=== PATIENT | female | born 2000 | race Caucasian/White ===

== ENCOUNTER 2019-07-28 13:07 | Inpatient (IN) | payer BC, SELFPAY ==
[2019-07-28] VITALS (16 sets, daily range): BP systolic 107–139; BP diastolic 51–96; PULSE 108–146; RESP 15–24; TEMP 37.2–37.4; O2SAT 98–100; BMI 39.6; BMI 39.7; BMI 39.9
[2019-07-28 14:16] LABS: Bedside Glucose 125 mg/dL (70-110)
[2019-07-28 14:25] LABS: Absolute Lymphocyte Count 2.49 X10^3/uL (0.83-4.51); Absolute Neutrophil Count 9.7 X10^3/uL (2.0-7.7); Basophil# 0.11 X10^3/uL; Basophil% 0.8 % (0-1); Eosinophil# 0.02 X10^3/uL; Eosinophils% 0.2 % (0-5); Hematocrit 43.4 % (37-47); Hemoglobin 14.2 g/dL (12.0-15.0); Lymphocyte # 2.49 X10^3/ul (4.0); Mean Corp Hgb Conc 32.7 g/dL (32-36); Mean Corpuscular Hgb 28.3 pg (27.0-32.0); Mean Corpuscular Volume 86.6 fL (81-99); Mean Platelet Vol. 9.1 fl (6.2-12.0); Monocyte# 0.71 X10^3/uL; Monocyte% 5.4 % (0-10); NRBC Flagged by Analyzer 0 % (0-5); Neutrophil # 9.71 X10^3/uL (2.7-7.7); Platelet Count 520 K/mm3 (150-450); RBC Distribution Width CV 12.3 % (11.6-14.6); RBC Distribution Width SD 38.5 fl (35.1-43.9); Red Blood Count 5.01 M/mm3 (4.2-5.4); White Blood Count 13.1 K/mm3 (4.4-11.0)
[2019-07-28 14:33] LABS: Anion Gap 14 (5-15); BUN 11 mg/dL (7-18); BUN/Creat Ratio 14.4 RATIO (10-20); Calcium,Total 9.7 mg/dL (8.5-10.1); Chloride 97 mmol/L (98-107); Creatinine, Serum 0.77 mg/dL (0.55-1.02); EST Glomerular Filtration Rate 102 mL/min (>60); Est Glom Filt Rate - Afr Amer 123 mL/min (>60); Estimated Creatinine Clearance 87.94 ml/min; Glucose 119 mg/dL (74-106); Lipase 37 U/L (73-393); Potassium 3.9 mmol/L (3.5-5.1); Sodium Level 132 mmol/L (136-145)
--- NOTE | 2019-07-28 14:33 | RAD_ITS ---
EXAM DESCRIPTION: PA and lateral CHEST CLINICAL HISTORY: 19 years Female, dyspnea COMPARISON: None FINDINGS: The thorax is intact. The heart and mediastinum appear to be within normal limits. The lungs appear to be well areated without evidence of pneumonic consolidation or pleural effusion. RAD/Chest PA and Lateral IMPRESSION: Normal PA and lateral chest. Electronically Signed: Andrew Isra, at 15:10 EDT Tel , Service support ,
[2019-07-28 14:35] LABS: Red Blood Cells-Urine 0 SEEN /hpf (0-5)
[2019-07-28] MEDS: Ondansetron 4 MG/2 ML Vial IV (14:37)
[2019-07-28] MEDS: 0.9% Normal Saline 1,000 ML 1000 ML IV (14:37)
[2019-07-28 14:39] LABS: Color, Urine Yellow (Yellow); Glucose, Dipstick 1000 mg/dl (Normal); Leukocyte Esterase-Dipstick 100 /ul (Negative); Nitrite-Dipstick Negative (Negative); Occult Blood-Urine Negative /ul (Negative); Protein-Dipstick 100 mg/dl (Negative); Urine Clarity Sl. Cloudy (Clear); Urine Urobilinogen 1 mg/dl (Normal)
[2019-07-28 14:40] LABS: Internal QC Validated? YES +Cl - CLEAR BKGD; Pregnancy, Urine Negative Negative
[2019-07-28 14:41] LABS: Urine Bilirubin Dipstick 1 mg/dL (Negative)
[2019-07-28 14:42] LABS: Ketone-Dipstick 150 mg/dl (Negative)
[2019-07-28 14:47] LABS: Bacteria 1+ /hpf (None Seen); Mucous, Urine 1+ /hpf (<or=2+); Squamous Epithelial Cells - UA 0-5 SEEN /hpf (5-10); White Blood Cells 10-25 SEEN /hpf (0-5)
--- NOTE | 2019-07-28 15:21 | ED.VIS.GEN ---
History of Present Illness Chief Complaint: Nausea/Vomiting Informant: Patient Onset: Yesterday Context: Gradual Onset Timing: Continuous Quality: nonbloody, nonbilious Current Severity: Severe Maximum Severity: Severe Worsened by: trying to eat/drink Relieved by: nothing Associated Symptoms: sob earlier. cold symptoms. Narrative: Patient states she is a type I and a type II diabetic, she states she is on insulin and pills, and has been in DKA before. She states she feels like other times when she has been in DKA, and checked her urine today and it was positive for ketones. However her sugar was in the 100s, and even went down to 65 so she drank some juice. She has been compliant with her medications. She has been around sick contacts at a healthcare facility recently. She initially stated she was having some epigastric abdominal pain but later states it was really just severe nausea and she does not have any other pains. Not right now. No urinary symptoms or polyuria/polydipsia. - Past Medical History (1) Diabetes mellitus Status: Chronic Past Medical History - Allergies and Home Meds Allergies/Adverse Reactions: Allergies No Known Allergies Allergy (Verified 07/28/19 13:08) Primary Care Physician: Petros Spicer MD [Primary Care Provider] - Lives: With Family Smoking Status: Never smoker Review of Systems General: Reports: Malaise. Denies: Chills, Fever, Sweats Eyes: Denies: Visual changes - bilaterally, Diplopia ENT: Reports: Left ear pain, Rhinorrhea - And congestion. Denies: Right ear pain, Sore throat Cardiovascular: Denies: Chest pain, Palpitations Respiratory: Reports: Dyspnea, Cough. Denies: Sputum, Dyspnea on exertion Gastrointestinal: Reports: Nausea, Vomiting. Denies: Abdominal pain, Diarrhea, Melena, Hematochezia Genitourinary: Denies: Dysuria, Hematuria, Frequency Musculoskeletal: Denies: Back pain, Swelling, Extremity Pain Skin: Denies: Rash, Wounds Neurological: Denies: Headache, Weakness, Numbness Endocrine: Denies: Polyuria, Polydipsia, Heat intolerance, Cold intolerance Physical Exam Vital Signs/Narrative: Vital Signs Temp Pulse Resp BP Pulse Ox 07/28/19 13:08 99.3 F H 146 H 18 139/96 H 98 Inital Vital Signs reviewed: Yes General: Well nourished, Well developed, No Acute Distress Head: Normocephalic, Atraumatic Eyes: Perrl, EOMI ENT: Moist mucous membranes, No rhinorrhea, TM's clear. Negative for: Sinus tenderness Neck: Supple, Nontender, No lymphadenopathy Cardiovascular: Regular rate, Regular rhythm, No murmurs, Tachycardia Respiratory: No distress, CTA bilaterally, Chest nontender Abdomen: Soft, Nontender, Nondistended, Normal bowel sounds Back: Nontender, Normal Inspection. Negative for: CVA tenderness Extremities: Nontender, No edema Skin: Normal color, No rash, No Trauma Neurological: Alert, Oriented x3, Cranial nerves II-XII grossly intact, Normal Strength, Normal Sensation Psychological: Normal affect, Normal Mood Diagnostic/Tx/Re-eval Impressions Chest X-Ray 07/28/19 14:33 IMPRESSION: Normal PA and lateral chest. Electronically Signed: Andrew Dhaliwal, at 15:10 EDT Tel , Service support , 07/28/19 14:13 Chest PA and Lateral [RAD] Stat Laboratory Results 07/28/19 07/28/19 07/28/19 13:53 13:53 13:53 WBC 13.1 H RBC 5.01 Hgb 14.2 Hct 43.4 MCV 86.6 MCH 28.3 MCHC 32.7 RDW Std Deviation 38.5 RDW Coeff of Jose Roberto 12.3 Plt Count 520 H MPV 9.1 Immature Gran % (Auto) 0.600 Neut % (Auto) 74.0 H Lymph % (Auto) 19.0 [place] % (Auto) 5.4 Eos % (Auto) 0.2 Baso % (Auto) 0.8 Absolute Neuts (auto) 9.7 H Absolute Lymphs (auto) 2.49 Nucleated RBC % 0 Sodium 132 L Potassium 3.9 Chloride 97 L Carbon Dioxide 21.0 Anion Gap 14 BUN 11 Creatinine 0.77 Estim Creat Clear Calc 87.94 Est GFR (MDRD) Af Amer 123 Est GFR (MDRD) Non-Af 102 BUN/Creatinine Ratio 14.4 Glucose 119 H Calcium 9.7 Lipase 37 L Urine Color Urine Clarity Urine pH Ur Specific [place] Urine Protein Urine Glucose (UA) Urine Ketones Urine Occult Blood Urine Nitrite Urine Bilirubin Urine Urobilinogen Ur Leukocyte Esterase Urine RBC Urine WBC Ur Squamous Epith Cells Urine Bacteria Urine Mucus Urine Test Acetone Level SMALL H POC Glucose 07/28/19 07/28/19 07/28/19 13:53 13:53 13:53 WBC RBC Hgb Hct MCV MCH MCHC RDW Std Deviation RDW Coeff of Jose Roberto Plt Count MPV Immature Gran % (Auto) Neut % (Auto) Lymph % (Auto) [place] % (Auto) Eos % (Auto) Baso % (Auto) Absolute Neuts (auto) Absolute Lymphs (auto) Nucleated RBC % Sodium Potassium Chloride Carbon Dioxide Anion Gap BUN Creatinine Estim Creat Clear Calc Est GFR (MDRD) Af Amer Est GFR (MDRD) Non-Af BUN/Creatinine Ratio Glucose Calcium Lipase Urine Color Yellow Urine Clarity Sl. Cloudy Urine pH 5.0 Ur Specific [place] 1.020 Urine Protein 100 H Urine Glucose (UA) 1000 H Urine Ketones 150 H Urine Occult Blood Negative Urine Nitrite Negative Urine Bilirubin 1 H Urine Urobilinogen 1 H Ur Leukocyte Esterase 100 H Urine RBC 0 SEEN Urine WBC 10-25 SEEN Ur Squamous Epith Cells 0-5 SEEN Urine Bacteria 1+ Urine Mucus 1+ Urine Test Negative Acetone Level POC Glucose 125 H - Medical Decision Making Patient's anion gap is within normal limits but her serum ketones returned small. Urine shows signs of infection, this was cultured and she was started on Rocephin. She was feeling much better after fluids and Zofran and is feeling hungry, but her venous blood gas came back with a pH of 7.33, all indicating very mild DKA. Her blood sugars in the 100s. She will be started on D5 half normal saline prior to starting insulin drip. Discussed with Dr. Hayden who agrees with ICU admission. - Critical Care Time Critical care time (excluding procedures): 30-74 minutes - 35 minutes including time spent discussing with patient and family and consultants and arranging admission. ED Disposition - Plan for ED Patient: Disposition: Acute Care Hospital [facility] Diagnosis: UTI (urinary tract infection), DKA (diabetic ketoacidoses) Referrals: Petros Spicer MD [Primary Care Provider] -
[2019-07-28] MEDS: Ceftriaxone 1 GM/50 ML BAG IV (15:48)
[2019-07-28 16:01] LABS: Blood Gas Specimen Type VEN; O2 Delivery Device Room Air; Time Given 1552; VBG BASE EXCESS -10 mmol/L (-1.0-3.5); VBG Bicarbonate 16 mmol/L (22-26); VBG Oxygen Content 17 mmol/L (23-33); VBG PO2 70 mmHg (25-40); VBG SO2 93 % (50-70); VBG pCO2 29.3 mmHg (41-51); VBG pH 7.34 (7.32-7.42)
--- NOTE | 2019-07-28 16:09 | HP.PCM_ITS ---
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 She denies any recent dysuria, frequency or hesitancy. Work-up in the ED included T 99.3, heart rate 146, BP 139/96, respiratory rate 18, 98% on room air, CBC with W BC 13.1, heme globin 14.2, platelet 520 with left shift, VBG with pH 7.34, PO2 70, O2 saturation 93% on room air, BMP with sodium 132, chloride 97, glucose 119, lipase 37, anion gap 14 however noted positive acetones, urine ketones present, urinalysis with specific gravity 1.020, protein 100, glucose 1000, ketones as noted 150, leukocyte esterase 100, negative nitrites with 10-25 WBCs with 1+ bacteria, unremarkable chest x-ray. In the ED patient ministered normal saline, Zofran, Rocephin, initiated on an insulin drip. Past Medical History Past Medical History (Chronic Problems): Chronic Problems Diabetes mellitus (Chronic) Allergies No Known Allergies Allergy (Verified 07/28/19 13:08) Home Medications: Ambulatory Orders Medication Instructions Recorded Insulin Glargine,Hum.rec.anlog 12 units SQ BREAKFAST 07/28/19 [Toujeo Max Solostar] Insulin Glargine,Hum.rec.anlog 60 unit SQ QHS 07/28/19 [Toujeo Max Solostar] Insulin Lispro [Humalog] units SQ TIDCM 07/28/19 Levothyroxine [Synthroid] 50 mcg PO DAILY 07/28/19 Lisinopril 30 mg PO DAILY 07/28/19 Surgical History: - - Tonsillectomy, inner leg cyst removal. 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 Smoking Status: Never smoker Tobacco Use: Non-smoker Alcohol: None Drugs: None - *Family History Maternal History Items: - - Patient with no market paternal family history including heart disease, diabetes or cancer. Patient does note that her mother's mother did have a history of cancer. Paternal History Items: Diabetes, High Cholesterol, Heart Disease, Hypertension Review of Systems Constitutional: Reports: Anorexia, Malaise, Weakness, Fatigue. Denies: Chills, Fever, Weight Change HEENT: Denies: Head Aches, Sinus Congestion, Sinus Drainage Cardiovascular: Denies: Chest Pain, Palpitations Respiratory: Denies: Cough, Shortness of breath at rest, Sputum production Gastrointestinal: Reports: Nausea, Vomiting. Denies: Abdominal Pain Genitourinary: Denies: Dysuria Musculoskeletal: Reports: Joint Pain. Denies: Joint Tenderness Skin: Denies: Rash, Wounds Neurological: Denies: Numbness, Tingling, Focal weakness Psychiatric: Denies: Anxiety, Depression, Homicidal Ideations, Suicidal Ideations Endocrine: Reports: Polydipsia, Polyuria Hematologic/ Lymphatic: Denies: Easy Bruising, Easy Bleeding VTE Information - Inpt Only VTE Present on Admission: No VTE Mechan Device Prophylaxis: SCD's VTE Pharm Prophylaxis ordered?: Yes Patient Problems: Active and Suspected Problems UTI (urinary tract infection) (Acute) DKA (diabetic ketoacidoses) (Acute) Subjective: Seated upright in ED bed, fatigued and ill-appearing, no acute distress currently, notes nausea improving. Objective: Physical Examination: General: awake, alert, oriented x 3 and cooperative, seated upright in the ED bed, fatigued and mildly ill appearing. Skin: normal color, turgor, no icterus, cyanosis. HEENT: AT/NC, EOMI, PERRLA, dry MM, no carotid bruits or JVD noted. Lungs: CTA bilaterally, moderate effort, moderate decrease BL bases, no rales, ronchi or wheezing. Heart: Tachycardic with regular rhythm; no gallop, rub audible. Abdomen: soft, obese, mild tenderness palpation bilateral upper quadrants primarily with palpation of the lateral musculature, no rebound or guarding, difficult to assess distention given habitus, mildly hypoactive bowel sounds, difficult to assess HSM secondary to habitus. Extremities: no cyanosis, clubbing, or edema. Neurological: patient awake, alert, oriented x 3; cognitive function intact; pupils equally reactive to light and accomodation; cranial nerves II-XII grossly normal, moving all 4 extremities, no focal deficits, strength moderately to severely global decrease secondary to acute presentation. Psychiatric: affect appears fatigued, no acute evidence of depressive or anxiety feelings. - Physical Exam Vital Signs Temp Pulse Resp BP Pulse Ox 99.3 F H 146 H 18 139/96 H 98 07/28/19 13:08 07/28/19 13:08 07/28/19 13:08 07/28/19 13:08 07/28/19 13:08 Oxygen Delivery Method Room Air Weight: 209 lb 14.081 oz Body Mass Index (BMI) 39.6 Laboratory Tests Past 24 Hrs 07/28/19 07/28/19 07/28/19 13:53 13:53 13:53 WBC 13.1 H RBC 5.01 Hgb 14.2 Hct 43.4 MCV 86.6 MCH 28.3 MCHC 32.7 RDW Std Deviation 38.5 RDW Coeff of Jose Roberto 12.3 Plt Count 520 H MPV 9.1 Immature Gran % (Auto) 0.600 Neut % (Auto) 74.0 H Lymph % (Auto) 19.0 [place] % (Auto) 5.4 Eos % (Auto) 0.2 Baso % (Auto) 0.8 Absolute Neuts (auto) 9.7 H Absolute Lymphs (auto) 2.49 Nucleated RBC % 0 Specimen Type VBG pH VBG pO2 VBG O2 Sat (Calc) VBG O2 Content VBG Base Excess POC Mix VBG pCO2 Pt Tmp O2 Delivery Device Blood Gas Notified Whom Blood Gas Notified Time Sodium 132 L Potassium 3.9 Chloride 97 L Carbon Dioxide 21.0 Anion Gap 14 BUN 11 Creatinine 0.77 Estim Creat Clear Calc 87.94 Est GFR (MDRD) Af Amer 123 Est GFR (MDRD) Non-Af 102 BUN/Creatinine Ratio 14.4 Glucose 119 H Calcium 9.7 Lipase 37 L Urine Color Urine Clarity Urine pH Ur Specific [place] Urine Protein Urine Glucose (UA) Urine Ketones Urine Occult Blood Urine Nitrite Urine Bilirubin Urine Urobilinogen Ur Leukocyte Esterase Urine RBC Urine WBC Ur Squamous Epith Cells Urine Bacteria Urine Mucus Urine Test Acetone Level SMALL H 07/28/19 07/28/19 07/28/19 13:53 13:53 15:54 WBC RBC Hgb Hct MCV MCH MCHC RDW Std Deviation RDW Coeff of Jose Roberto Plt Count MPV Immature Gran % (Auto) Neut % (Auto) Lymph % (Auto) [place] % (Auto) Eos % (Auto) Baso % (Auto) Absolute Neuts (auto) Absolute Lymphs (auto) Nucleated RBC % Specimen Type MICHAEL VBG pH 7.34 VBG pO2 70 H VBG O2 Sat (Calc) 93 H VBG O2 Content 17 L VBG Base Excess -10 L POC Mix VBG pCO2 Pt Tmp 29.3 L O2 Delivery Device Room Air Blood Gas Notified Whom ED Blood Gas Notified Time 1552 Sodium Potassium Chloride Carbon Dioxide Anion Gap BUN Creatinine Estim Creat Clear Calc Est GFR (MDRD) Af Amer Est GFR (MDRD) Non-Af BUN/Creatinine Ratio Glucose Calcium Lipase Urine Color Yellow Urine Clarity Sl. Cloudy Urine pH 5.0 Ur Specific [place] 1.020 Urine Protein 100 H Urine Glucose (UA) 1000 H Urine Ketones 150 H Urine Occult Blood Negative Urine Nitrite Negative Urine Bilirubin 1 H Urine Urobilinogen 1 H Ur Leukocyte Esterase 100 H Urine RBC 0 SEEN Urine WBC 10-25 SEEN Ur Squamous Epith Cells 0-5 SEEN Urine Bacteria 1+ Urine Mucus 1+ Urine Test Negative Acetone Level POC Glucose 07/28/19 13:53 POC Glucose 125 H Assessment/Plan All Active Problems UTI (urinary tract infection) (Acute) DKA (diabetic ketoacidoses) (Acute) The patient is a 19 y/o F w/ PMHx: Diabetes mellitus type I presumed, Hypothyroidism, Obesity who presents to the [facility] ED on 07/28/19 with history of progressively worsening nausea, emesis, malaise and fatigue with mild dyspnea, worse with exertion, worse with increased activity starting the evening prior with 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 (1) DKA w/ Diabetes mellitus type I Presumed: Will admit to the ICU, continue on insulin drip, check serial K+, glucose w/ IVF changes pending these levels, serial chemistry, obtain mag, phos daily w/ repletion as needed, transition to home SC regimen when gap closed w/ overlap on drip, nutrition consultation. Encouraged diet and insulin regimen compliance. HgbA1c pending. ICU physician consulted. (2) ? Acute Urinary Tract Infection: Not symptomatic but given acute presentation #1 admitted with DKA, UA upon ED evaluation mildly remarkable, pending UCx, as noted continue to aggressive continue IVFs, monitor I/Os, continue IV Rocephin w/ transition as able pending sensitivities and speciation or discontinuation if culture unremarkable. (3) Hypothyroidism: Continue home synthroid regimen. (4) Obesity: Weight loss and lifestyle changes encouraged, nutrition consulted. (5) GERD: Maintained on famotidine. (6) DVT prophylaxis: SCDs, Lovenox. Code Visit Inpatient E&M: 55978 Init Hosp L3
[2019-07-28] MEDS: Dext 5%-0.45% NS 1,000 ML 200 ML IV (16:48)
[2019-07-28 17:36] LABS: Bedside Glucose 289 mg/dL (70-110)
[2019-07-28] MEDS: 0.9% Normal Saline 1,000 ML 999 ML IV (17:55)
[2019-07-28 18:12] LABS: Osmolality, Serum 289 mOsm/KG (275-295)
[2019-07-28 18:14] LABS: Anion Gap 19 (5-15); BUN 9 mg/dL (7-18); Calcium,Total 8.6 mg/dL (8.5-10.1); Chloride 100 mmol/L (98-107); Creatinine, Serum 0.75 mg/dL (0.55-1.02); EST Glomerular Filtration Rate 104 mL/min (>60); Est Glom Filt Rate - Afr Amer 126 mL/min (>60); Estimated Creatinine Clearance 90.29 ml/min; Glucose 278 mg/dL (74-106); Potassium 3.2 mmol/L (3.5-5.1); Sodium Level 133 mmol/L (136-145)
[2019-07-28 18:15] LABS: Magnesium 1.5 mg/dL (1.6-2.6); Phosphorus 2.8 mg/dL (2.5-4.9)
[2019-07-28 18:36] LABS: Bedside Glucose 145 mg/dL (70-110)
[2019-07-28] MEDS: Dext 5%-0.45% NS 1,000 ML 150 ML IV (18:37)
[2019-07-28] MEDS: Potassium Chloride 10mEq/100mL 10 MEQ/100 ML IV.SOLN. 100 MEQ IV BOLUS ×4 (20:20→23:59)
[2019-07-28 20:41] LABS: Bedside Glucose 96 mg/dL (70-110)
[2019-07-28 20:41] LABS: Bedside Glucose 69 mg/dL (70-110)
[2019-07-28 21:30] LABS: Bedside Glucose 147 mg/dL (70-110)
[2019-07-28 21:48] LABS: Anion Gap 9 (5-15); BUN 7 mg/dL (7-18); BUN/Creat Ratio 10.4 RATIO (10-20); Calcium,Total 8.3 mg/dL (8.5-10.1); Chloride 102 mmol/L (98-107); Creatinine, Serum 0.67 mg/dL (0.55-1.02); EST Glomerular Filtration Rate 118 mL/min (>60); Est Glom Filt Rate - Afr Amer 143 mL/min (>60); Estimated Creatinine Clearance 101.07 ml/min; Glucose 142 mg/dL (74-106); Potassium 4.1 mmol/L (3.5-5.1); Sodium Level 133 mmol/L (136-145)
[2019-07-28 22:35] LABS: Bedside Glucose 267 mg/dL (70-110)
[2019-07-28] MEDS: Famotidine 20 MG Tablet PO (22:37)
[2019-07-28 23:36] LABS: Bedside Glucose 347 mg/dL (70-110)
[2019-07-29] VITALS (28 sets, daily range): BP systolic 108–148; BP diastolic 46–98; PULSE 98–118; RESP 14–20; TEMP 36.6–37.3; O2SAT 95–100
[2019-07-29 00:41] LABS: Bedside Glucose 214 mg/dL (70-110)
[2019-07-29 00:50] LABS: Bedside Glucose 86 mg/dL (70-110)
[2019-07-29] MEDS: Dext 5%-0.45% NS 1,000 ML 150 ML IV ×2 (01:17→10:08)
[2019-07-29 01:31] LABS: Bedside Glucose 156 mg/dL (70-110)
[2019-07-29 01:50] LABS: Anion Gap 11 (5-15); BUN 5 mg/dL (7-18); BUN/Creat Ratio 6.5 RATIO (10-20); Calcium,Total 7.9 mg/dL (8.5-10.1); Chloride 106 mmol/L (98-107); Creatinine, Serum 0.76 mg/dL (0.55-1.02); EST Glomerular Filtration Rate 102 mL/min (>60); Est Glom Filt Rate - Afr Amer 123 mL/min (>60); Glucose 154 mg/dL (74-106); Sodium Level 135 mmol/L (136-145)
[2019-07-29 03:00] LABS: Bedside Glucose 135 mg/dL (70-110)
[2019-07-29 04:30] LABS: Absolute Neutrophil Count 4.6 X10^3/uL (2.0-7.7); Basophil# 0.07 X10^3/uL; Eosinophil# 0.07 X10^3/uL; Hematocrit 35.8 % (37-47); Hemoglobin 11.6 g/dL (12.0-15.0); Lymphocyte % 27.7 % (19-41); Mean Corp Hgb Conc 32.4 g/dL (32-36); Mean Corpuscular Hgb 28.6 pg (27.0-32.0); Mean Corpuscular Volume 88.2 fL (81-99); Mean Platelet Vol. 8.7 fl (6.2-12.0); Monocyte# 0.44 X10^3/uL; Monocyte% 6.1 % (0-10); NRBC Flagged by Analyzer 0 % (0-5); Neutrophil % 63.5 % (47-70); Platelet Count 321 K/mm3 (150-450); RBC Distribution Width CV 12.3 % (11.6-14.6); Red Blood Count 4.06 M/mm3 (4.2-5.4); White Blood Count 7.2 K/mm3 (4.4-11.0)
[2019-07-29 04:31] LABS: Bedside Glucose 161 mg/dL (70-110)
[2019-07-29] MEDS: 0.9% Normal Saline 1,000 ML 100 ML IV ×2 (04:47→17:30)
[2019-07-29 04:48] LABS: ALB/GLOB Ratio 0.7 RATIO (0.9-2.4); AST(SGOT) 19 U/L (15-37); Alanine Aminotransfer ALT/SGPT 25 U/L (13-56); Albumin, Serum 2.6 g/dL (3.2-5.0); Alkaline Phosphatase 149 U/L (45-117); Anion Gap 11 (5-15); BUN 5 mg/dL (7-18); BUN/Creat Ratio 8.5 RATIO (10-20); Calcium,Total 7.9 mg/dL (8.5-10.1); Chloride 106 mmol/L (98-107); Creatinine, Serum 0.59 mg/dL (0.55-1.02); EST Glomerular Filtration Rate 139 mL/min (>60); Est Glom Filt Rate - Afr Amer 168 mL/min (>60); Estimated Creatinine Clearance 114.77 ml/min; Globulin 3.9 g/dL (2.2-4.2); Glucose 158 mg/dL (74-106); Magnesium 1.8 mg/dL (1.6-2.6); Phosphorus 2.5 mg/dL (2.5-4.9); Potassium 3.6 mmol/L (3.5-5.1); Protein, Total 6.5 g/dL (6.4-8.2); Sodium Level 138 mmol/L (136-145)
[2019-07-29] MEDS: Levothyroxine 50 MCG Tablet PO (05:14)
--- NOTE | 2019-07-29 06:21 | PCM.PROGNOTE ---
Patient Problems: Active and Suspected Problems UTI (urinary tract infection) (Acute) DKA (diabetic ketoacidoses) (Acute) Subjective: Rocephin day #2 All events of the past 24 hours of been reviewed. The patient is a 19-year-old female with a past medical history of obesity, hypothyroidism and diabetes mellitus type 1 who was admitted to [facility] on 07/28/2019 with DKA. Afebrile since admission Persistently tachycardic but the heart rates have come down from the 140s to 105-115. She is maintaining an oxygen saturation of 97 to 100% on room air. Urine output is not being recorded. All imaging was personally reviewed. Chest x-ray showed no infiltrates, pleural effusions or pulmonary vascular congestion. There is no cardiomegaly. All lab was personally reviewed. White blood cell count today is 7.2 with a normal differential. Hemoglobin has dropped to 11.6 with hydration and platelets are within normal limits. Potassium is 3.6 today and the serum bicarb is 21 with an anion gap of 11. Phosphorus and magnesium are within normal limits. Liver panel is unremarkable. UA at admission showed 10-25 white blood cells and +1 bacteria. The urine was obtained by clean-catch. Lipid panel shows triglycerides of 239, LDL of 98 and HDL of 42. She has been transitioned to Lantus 12 units subcu nightly with a sliding insulin scale. Her normal dose of Lantus is 60 units nightly and 12 units with breakfast. Her last episode of DKA was many months ago. She follows with an zyglo technician. He carb counts to determine how much insulin to take with meals. This morning she denies nausea, shortness of breath, abdominal pain. She denies diarrhea, cough, sore throat. Her only complaint is feeling very tired. She denies dysuria. Denies missing any doses of insulin. - Physical Exam General: Alert, Oriented x3, Cooperative, - - Appears fatigued HEENT: Atraumatic, PERRLA, EOMI, Normocephalic Oral: Dry Mucosa Neck: Supple, No Nodes, Trachea Midline Lungs: Clear to auscultation Cardiovascular: Regular Rhythm, Normal S1, Normal S2, No murmurs, No Gallop, Tachycardic Abdomen: Bowel Sounds Present, Soft, Non Tender, Non-Distended Extremities: No clubbing, No cyanosis, No edema, Peripheral Pulses Normal Neurological: Cranial nerves II-XII grossly intact, Neuro grossly intact Psych/Mental Status: Appropriate Vital Signs Temp Pulse Resp BP Pulse Ox 98.5 F 113 H 19 H 136/58 H 98 07/29/19 06:00 07/29/19 06:00 07/29/19 06:00 07/29/19 06:00 07/29/19 06:00 Oxygen Delivery Method Room Air Weight: 214 lb 4.629 oz Body Mass Index (BMI) 39.9 Finger Stick Blood Glucose 161 Intake and Output for Last 24 Hours 07/27/19 07/28/19 07/29/19 23:59 23:59 23:59 Intake Total 3386.22 / 3386.22 1122.79 / 1122.79 Balance 3386.22 / 3386.22 1122.79 / 1122.79 Laboratory Tests Past 24 Hrs 07/28/19 07/28/19 07/28/19 13:53 13:53 13:53 WBC 13.1 H RBC 5.01 Hgb 14.2 Hct 43.4 MCV 86.6 MCH 28.3 MCHC 32.7 RDW Std Deviation 38.5 RDW Coeff of Jose Roberto 12.3 Plt Count 520 H MPV 9.1 Immature Gran % (Auto) 0.600 Neut % (Auto) 74.0 H Lymph % (Auto) 19.0 [place] % (Auto) 5.4 Eos % (Auto) 0.2 Baso % (Auto) 0.8 Absolute Neuts (auto) 9.7 H Absolute Lymphs (auto) 2.49 Nucleated RBC % 0 Specimen Type VBG pH VBG pO2 VBG O2 Sat (Calc) VBG O2 Content VBG Base Excess POC Mix VBG pCO2 Pt Tmp O2 Delivery Device Blood Gas Notified Whom Blood Gas Notified Time Sodium 132 L Potassium 3.9 Chloride 97 L Carbon Dioxide 21.0 Anion Gap 14 BUN 11 Creatinine 0.77 Estim Creat Clear Calc 87.94 Est GFR (MDRD) Af Amer 123 Est GFR (MDRD) Non-Af 102 BUN/Creatinine Ratio 14.4 Glucose 119 H Hemoglobin A1c Serum Osmolality Calcium 9.7 Phosphorus Magnesium Total Bilirubin AST ALT Alkaline Phosphatase Total Protein Albumin Globulin Albumin/Globulin Ratio Lipase 37 L Urine Color Urine Clarity Urine pH Ur Specific [place] Urine Protein Urine Glucose (UA) Urine Ketones Urine Occult Blood Urine Nitrite Urine Bilirubin Urine Urobilinogen Ur Leukocyte Esterase Urine RBC Urine WBC Ur Squamous Epith Cells Urine Bacteria Urine Mucus Urine Test Acetone Level SMALL H 07/28/19 07/28/19 07/28/19 13:53 13:53 15:54 WBC RBC Hgb Hct MCV MCH MCHC RDW Std Deviation RDW Coeff of Jose Roberto Plt Count MPV Immature Gran % (Auto) Neut % (Auto) Lymph % (Auto) [place] % (Auto) Eos % (Auto) Baso % (Auto) Absolute Neuts (auto) Absolute Lymphs (auto) Nucleated RBC % Specimen Type MICHAEL VBG pH 7.34 VBG pO2 70 H VBG O2 Sat (Calc) 93 H VBG O2 Content 17 L VBG Base Excess -10 L POC Mix VBG pCO2 Pt Tmp 29.3 L O2 Delivery Device Room Air Blood Gas Notified Whom ED Blood Gas Notified Time 1552 Sodium Potassium Chloride Carbon Dioxide Anion Gap BUN Creatinine Estim Creat Clear Calc Est GFR (MDRD) Af Amer Est GFR (MDRD) Non-Af BUN/Creatinine Ratio Glucose Hemoglobin A1c Serum Osmolality Calcium Phosphorus Magnesium Total Bilirubin AST ALT Alkaline Phosphatase Total Protein Albumin Globulin Albumin/Globulin Ratio Lipase Urine Color Yellow Urine Clarity Sl. Cloudy Urine pH 5.0 Ur Specific [place] 1.020 Urine Protein 100 H Urine Glucose (UA) 1000 H Urine Ketones 150 H Urine Occult Blood Negative Urine Nitrite Negative Urine Bilirubin 1 H Urine Urobilinogen 1 H Ur Leukocyte Esterase 100 H Urine RBC 0 SEEN Urine WBC 10-25 SEEN Ur Squamous Epith Cells 0-5 SEEN Urine Bacteria 1+ Urine Mucus 1+ Urine Test Negative Acetone Level 07/28/19 07/28/19 07/28/19 17:45 17:45 17:45 WBC RBC Hgb Hct MCV MCH MCHC RDW Std Deviation RDW Coeff of Jose Roberto Plt Count MPV Immature Gran % (Auto) Neut % (Auto) Lymph % (Auto) [place] % (Auto) Eos % (Auto) Baso % (Auto) Absolute Neuts (auto) Absolute Lymphs (auto) Nucleated RBC % Specimen Type VBG pH VBG pO2 VBG O2 Sat (Calc) VBG O2 Content VBG Base Excess POC Mix VBG pCO2 Pt Tmp O2 Delivery Device Blood Gas Notified Whom Blood Gas Notified Time Sodium 133 L Potassium 3.2 L Chloride 100 Carbon Dioxide 14.0 L Anion Gap 19 H BUN 9 Creatinine 0.75 Estim Creat Clear Calc 90.29 Est GFR (MDRD) Af Amer 126 Est GFR (MDRD) Non-Af 104 BUN/Creatinine Ratio 12.0 Glucose 278 H Hemoglobin A1c Serum Osmolality 289 Calcium 8.6 Phosphorus 2.8 Magnesium 1.5 L Total Bilirubin AST ALT Alkaline Phosphatase Total Protein Albumin Globulin Albumin/Globulin Ratio Lipase Urine Color Urine Clarity Urine pH Ur Specific [place] Urine Protein Urine Glucose (UA) Urine Ketones Urine Occult Blood Urine Nitrite Urine Bilirubin Urine Urobilinogen Ur Leukocyte Esterase Urine RBC Urine WBC Ur Squamous Epith Cells Urine Bacteria Urine Mucus Urine Test Acetone Level 07/28/19 07/29/19 07/29/19 21:25 01:15 04:05 WBC 7.2 RBC 4.06 L Hgb 11.6 L Hct 35.8 L MCV 88.2 MCH 28.6 MCHC 32.4 RDW Std Deviation 40.0 RDW Coeff of Jose Roberto 12.3 Plt Count 321 MPV 8.7 Immature Gran % (Auto) 0.700 Neut % (Auto) 63.5 Lymph % (Auto) 27.7 [place] % (Auto) 6.1 Eos % (Auto) 1.0 Baso % (Auto) 1.0 Absolute Neuts (auto) 4.6 Absolute Lymphs (auto) 2.00 Nucleated RBC % 0 Specimen Type VBG pH VBG pO2 VBG O2 Sat (Calc) VBG O2 Content VBG Base Excess POC Mix VBG pCO2 Pt Tmp O2 Delivery Device Blood Gas Notified Whom Blood Gas Notified Time Sodium 133 L 135 L Potassium 4.1 4.0 Chloride 102 106 Carbon Dioxide 22.0 18.0 L Anion Gap 9 11 BUN 7 5 L Creatinine 0.67 0.76 Estim Creat Clear Calc 101.07 89.10 Est GFR (MDRD) Af Amer 143 123 Est GFR (MDRD) Non-Af 118 102 BUN/Creatinine Ratio 10.4 6.5 L Glucose 142 H 154 H Hemoglobin A1c Serum Osmolality Calcium 8.3 L 7.9 L Phosphorus Magnesium Total Bilirubin AST ALT Alkaline Phosphatase Total Protein Albumin Globulin Albumin/Globulin Ratio Lipase Urine Color Urine Clarity Urine pH Ur Specific [place] Urine Protein Urine Glucose (UA) Urine Ketones Urine Occult Blood Urine Nitrite Urine Bilirubin Urine Urobilinogen Ur Leukocyte Esterase Urine RBC Urine WBC Ur Squamous Epith Cells Urine Bacteria Urine Mucus Urine Test Acetone Level 07/29/19 07/29/19 04:05 04:05 WBC RBC Hgb Hct MCV MCH MCHC RDW Std Deviation RDW Coeff of Jose Roberto Plt Count MPV Immature Gran % (Auto) Neut % (Auto) Lymph % (Auto) [place] % (Auto) Eos % (Auto) Baso % (Auto) Absolute Neuts (auto) Absolute Lymphs (auto) Nucleated RBC % Specimen Type VBG pH VBG pO2 VBG O2 Sat (Calc) VBG O2 Content VBG Base Excess POC Mix VBG pCO2 Pt Tmp O2 Delivery Device Blood Gas Notified Whom Blood Gas Notified Time Sodium 138 Potassium 3.6 Chloride 106 Carbon Dioxide 21.0 Anion Gap 11 BUN 5 L Creatinine 0.59 Estim Creat Clear Calc 114.77 Est GFR (MDRD) Af Amer 168 Est GFR (MDRD) Non-Af 139 BUN/Creatinine Ratio 8.5 L Glucose 158 H Hemoglobin A1c Pending Serum Osmolality Calcium 7.9 L Phosphorus 2.5 Magnesium 1.8 Total Bilirubin 0.30 AST 19 ALT 25 Alkaline Phosphatase 149 H Total Protein 6.5 Albumin 2.6 L Globulin 3.9 Albumin/Globulin Ratio 0.7 L Lipase Urine Color Urine Clarity Urine pH Ur Specific [place] Urine Protein Urine Glucose (UA) Urine Ketones Urine Occult Blood Urine Nitrite Urine Bilirubin Urine Urobilinogen Ur Leukocyte Esterase Urine RBC Urine WBC Ur Squamous Epith Cells Urine Bacteria Urine Mucus Urine Test Acetone Level POC Glucose 07/29/19 07/29/19 07/29/19 04:19 02:58 01:24 POC Glucose 161 H 135 H 156 H 07/29/19 07/28/19 07/28/19 00:35 23:26 22:28 POC Glucose 214 H 347 H 267 H 07/28/19 07/28/19 07/28/19 21:24 20:45 20:27 POC Glucose 147 H 86 69 L 07/28/19 07/28/19 07/28/19 19:32 18:28 17:28 POC Glucose 96 145 H 289 H 07/28/19 13:53 POC Glucose 125 H Medical Necessity - Tobacco Use Smoking Status: Never smoker Tobacco Use: Non-smoker Assessment/Plan All Active Problems UTI (urinary tract infection) (Acute) DKA (diabetic ketoacidoses) (Acute) Impressions 1. DKA - has been transitioned off the insulin drip and started on a diet. Will resume Lantus and allow her to carb count for meals. DKA recurred AM on 07/29. Insulin drip restarted and by 5 PM the gap had been closed X 2 on BMP. Insulin was DC'd and she was placed back on Lantus with mealtime Lispro 2. Hypomagnesemia-resolved with supplementation 3. Hypertriglyceridemia with LDL of 98 and a low HDL of 42. Will check a direct LDH in light of elevated triglycerides. 4. Morbid obesity-consult with dietitian has been ordered. 5. Possible urinary tract infection however the patient has been afebrile and she now has a normal white blood cell count and normal differential. She is asymptomatic. We will continue Rocephin and await the results of the urine culture. 6. Hypertension-continue lisinopril 7. Hypothyroidism on levothyroxine supplementation. Check TSH Code Visit Inpatient E&M: 46529 Subs Hosp L3
[2019-07-29 06:51] LABS: Bedside Glucose 341 mg/dL (70-110)
[2019-07-29 07:06] LABS: Cholesterol 188 mg/dL (200); High Density Lipoprotein 42 mg/dL; Triglycerides 239 mg/dL; Very Low Density Lipoprotein 48 mg/dL (5-40)
[2019-07-29] MEDS: Insulin Lispro 100 UNIT/ML INSULN.PEN SC ×3 (07:39→21:25)
[2019-07-29 08:25] LABS: Bedside Glucose 151 mg/dL (70-110)
[2019-07-29 08:30] LABS: Bedside Glucose 400 mg/dL (70-110)
[2019-07-29 08:31] LABS: Hemoglobin A1c 9.2 % (4.2-6.3)
[2019-07-29] MEDS: Ondansetron 4 MG/2 ML Vial IV (08:45)
[2019-07-29] MEDS: Insulin Lispro 100 UNIT/ML INSULN.PEN 15 UNIT SC (08:46)
[2019-07-29 09:14] LABS: Anion Gap 21 (5-15); BUN 6 mg/dL (7-18); Calcium,Total 8.3 mg/dL (8.5-10.1); Chloride 104 mmol/L (98-107); Creatinine, Serum 0.66 mg/dL (0.55-1.02); EST Glomerular Filtration Rate 120 mL/min (>60); Est Glom Filt Rate - Afr Amer 145 mL/min (>60); Glucose 390 mg/dL (74-106); Potassium 5.2 mmol/L (3.5-5.1); Sodium Level 135 mmol/L (136-145)
--- NOTE | 2019-07-29 09:35 | CASEMGMT ---
RN CM Assessment Presentation: Hyperglycemia with early DKA Intro role of CM and purpose of RN CM assessment to patient. Demographics, PCP and Pharmacy verified. Pt is awake, alert and able to participate in assessment. Pt states she has Blood Glucose monitoring equipment and is compliant with following regimen set up with her digital product specialist. PCP: Dr. Pavel Spicer -Specialists: Dr. Lazaro Rosine [place] Preferred Pharmacy: [facility] Insurance: [employer] Prescription Benefit: yes LNOK: parents Living Arrangements: lives independently. No care needs identified. Transportation: Drives DME: no ambulatory DME. Pt states she has BG monitoring equipment at home. HHC: none Patient DC goals: none DC PLAN: Home on discharge. Tobias AGUILLON RN ACM
[2019-07-29] MEDS: 0.9% Normal Saline 1,000 ML 500 ML IV (09:36)
[2019-07-29] MEDS: Ceftriaxone 1 GM/50 ML BAG IV (09:37)
[2019-07-29] MEDS: Enoxaparin 40 MG/0.4 ML Syringe SC (09:46)
[2019-07-29 10:16] LABS: Bedside Glucose 244 mg/dL (70-110)
[2019-07-29 12:05] LABS: Bedside Glucose 191 mg/dL (70-110)
[2019-07-29 12:05] LABS: Bedside Glucose 94 mg/dL (70-110)
[2019-07-29 12:58] LABS: Anion Gap 8 (5-15); BUN 4 mg/dL (7-18); BUN/Creat Ratio 5.4 RATIO (10-20); Calcium,Total 8.5 mg/dL (8.5-10.1); Chloride 108 mmol/L (98-107); Creatinine, Serum 0.74 mg/dL (0.55-1.02); EST Glomerular Filtration Rate 105 mL/min (>60); Est Glom Filt Rate - Afr Amer 127 mL/min (>60); Estimated Creatinine Clearance 91.51 ml/min; Glucose 107 mg/dL (74-106); Sodium Level 135 mmol/L (136-145)
[2019-07-29 13:05] LABS: Bedside Glucose 70 mg/dL (70-110)
[2019-07-29 13:35] LABS: Bedside Glucose 67 mg/dL (70-110)
[2019-07-29 14:06] LABS: Bedside Glucose 94 mg/dL (70-110)
[2019-07-29 14:36] LABS: Bedside Glucose 84 mg/dL (70-110)
[2019-07-29 15:40] LABS: Bedside Glucose 95 mg/dL (70-110)
[2019-07-29 15:40] LABS: Bedside Glucose 124 mg/dL (70-110)
[2019-07-29 16:44] LABS: Anion Gap 9 (5-15); BUN 4 mg/dL (7-18); Calcium,Total 8.4 mg/dL (8.5-10.1); Chloride 108 mmol/L (98-107); Creatinine, Serum 0.57 mg/dL (0.55-1.02); EST Glomerular Filtration Rate 144 mL/min (>60); Est Glom Filt Rate - Afr Amer 174 mL/min (>60); Glucose 129 mg/dL (74-106); Potassium 4.4 mmol/L (3.5-5.1); Sodium Level 136 mmol/L (136-145)
[2019-07-29 17:15] LABS: Bedside Glucose 156 mg/dL (70-110)
[2019-07-29 17:15] LABS: Bedside Glucose 127 mg/dL (70-110)
[2019-07-29 20:57] LABS: Anion Gap 11 (5-15); BUN 6 mg/dL (7-18); BUN/Creat Ratio 8.6 RATIO (10-20); Calcium,Total 8.1 mg/dL (8.5-10.1); Chloride 104 mmol/L (98-107); EST Glomerular Filtration Rate 113 mL/min (>60); Est Glom Filt Rate - Afr Amer 137 mL/min (>60); Estimated Creatinine Clearance 96.74 ml/min; Glucose 352 mg/dL (74-106); Potassium 4.6 mmol/L (3.5-5.1); Sodium Level 136 mmol/L (136-145)
[2019-07-29] MEDS: Famotidine 20 MG Tablet PO (21:27)
[2019-07-29 21:35] LABS: Bedside Glucose 373 mg/dL (70-110)
[2019-07-30] VITALS (12 sets, daily range): BP systolic 87–147; BP diastolic 42–93; PULSE 86–119; RESP 11–20; TEMP 36.6–37.1; O2SAT 98–100; BMI 41.6
[2019-07-30] MEDS: 0.9% Normal Saline 1,000 ML 100 ML IV (03:28)
[2019-07-30 04:33] LABS: Anion Gap 7 (5-15); BUN 5 mg/dL (7-18); BUN/Creat Ratio 10.5 RATIO (10-20); Calcium,Total 8.2 mg/dL (8.5-10.1); Chloride 112 mmol/L (98-107); Creatinine, Serum 0.48 mg/dL (0.55-1.02); EST Glomerular Filtration Rate 176 mL/min (>60); Est Glom Filt Rate - Afr Amer 213 mL/min (>60); Estimated Creatinine Clearance 141.08 ml/min; Glucose 148 mg/dL (74-106); Magnesium 1.7 mg/dL (1.6-2.6); Potassium 4.1 mmol/L (3.5-5.1); Sodium Level 142 mmol/L (136-145)
[2019-07-30] MEDS: Levothyroxine 50 MCG Tablet PO (06:45)
[2019-07-30] MEDS: Famotidine 20 MG Tablet PO (07:38)
[2019-07-30 07:51] LABS: Bedside Glucose 131 mg/dL (70-110)
[2019-07-30 08:56] LABS: LDL, Direct 120295 144 mg/dL (0-99)
[2019-07-30] MEDS: Insulin Lispro 100 UNIT/ML INSULN.PEN 16 UNIT SC (09:46)
[2019-07-30 11:26] LABS: Bedside Glucose 159 mg/dL (70-110)
[2019-07-30] MEDS: Insulin Lispro 100 UNIT/ML INSULN.PEN 19 UNIT SC (12:00)
--- NOTE | 2019-07-30 12:26 | DCINST_ITS ---
- Discharge Diagnoses Current Active Problems: Current Active and Chronic Problems Diabetes mellitus (Chronic) UTI (urinary tract infection) (Acute) DKA (diabetic ketoacidoses) (Acute) You will use the following diet at home:: Calorie/Carbohydrate Controlled (specify 1200, 1400, etc), Cardiac, Other - Try and stick to a 1600 calorie to 1800 calorie diet to help with weight loss. This will help to decrease cholesterol Your food should be the consistency of: Regular Your liquids should be the consistency of: Regular/Thin Discharge Activity: Return to Normal Activity, - - I recommend that you start an exercise program and exercise for 30 minutes 5-6 times a week. Being very active is not the same as exercise.......Treadmill, exercycle, elliptical, swimming for 30 minutes, vigorous walking for 30 minutes, running...this is exercise. It will help you efforts to lose weight, improve the cholesterol, decrease your blood sugars and help to keep your heart strong to prevent heart disease. It is JUST as improtant as controlling you blood sugars and your BP and your cholesterol. Return to work on:: 08/02/19 May resume sexual activity in: No Restrictions Call your doctor if you observe: Fever of 101 or Higher, Shortness of breath, Dizziness, Fainting spells, Swelling in the ankles, Chest pain, - - nausea/vomiting/abdminal pain/burning with urination Instructions: MyPlate Worksheet: 1,600 Calories, MyPlate Worksheet: 1,800 Calories Additional Instructions: I gave you an antibiotic to finish up 5 days of tx for urinary tract infection. Make sure to take all of the antibiotic or the infection may come back. I have given you a prescription for Crestor which is a cholesterol-lowering medication. Cholesterol is divided into LDL and HDL. The HDL helps to protect your heart from coronary artery disease. A high LDL increases your risk for coronary artery disease and strokes. Your HDL is low at 42 and the recommendations for women is to have it above 50. Aerobic exercise will help to increase your HDL. Your LDL is 144 and the recommendations for type I diabetics is to keep it less than or equal to 70. You should have your lipid panel and a liver panel rechecked in 6 weeks. Either your prom burn off operator or your PCP can order this for you. If you would like to follow up at diabetic clinic with the assembler dc field ring all you need is a referral from you PCP. Allergies/Adverse Reactions: Allergies No Known Allergies Allergy (Verified 07/28/19 13:08) Medications to take at Discharge Insulin Glargine,Hum.rec.anlog [Toujeo Max Solostar] 12 units SQ BREAKFAST 07/28/19 Insulin Glargine,Hum.rec.anlog [Toujeo Max Solostar] 60 unit SQ QHS 07/28/19 Insulin Lispro [Humalog] 0 units SQ TIDCM 07/28/19 Levothyroxine [Synthroid] 50 mcg PO DAILY 07/28/19 Lisinopril 30 mg PO DAILY 07/28/19 Cefadroxil 1 gm PO BID #7 tab 07/30/19 Rosuvastatin Calcium [Crestor] 10 mg PO QHS #30 tab 07/30/19 The following prescriptions were given: Cefadroxil 1 gm PO BID #7 tab Transmission Status: Pending to [id number] Rosuvastatin Calcium [Crestor] 10 mg PO QHS #30 tab Transmission Status: Pending to [id number] Primary Care Physician: Petros Spicer MD [Primary Care Provider] - Please follow up with your Primary Care Physician in: in 1-2 weeks Test Results: Test results from this visit will be discussed in further detail at your follow- up appointment, if applicable. Proposed Discharge Date: 07/30/19
--- NOTE | 2019-07-30 12:39 | PCM.DC.SUM ---
Discharge Date and Diagnosis - Problem List Patient Problems: Active and Suspected Problems Hypomagnesemia (Acute) Hypokalemia (Acute) UTI (urinary tract infection) (Acute) DKA (diabetic ketoacidoses) (Acute) Date of Admission: 07/28/19 Date of Discharge: 07/30/19 - Primary Discharge Diagnosis Active and Suspected Problems DKA (diabetic ketoacidoses) (Acute) Hypomagnesemia (Acute)-resolved Hypokalemia (Acute)-resolved UTI (urinary tract infection) (Acute) - mixed organisms on the urine culture - Secondary Discharge Diagnosis Chronic Problems Obesity, Class III, BMI 40-49.9 (morbid obesity) (Chronic) Type 1 diabetes mellitus (Chronic)since 4 YOA Dyslipidemia (high LDL; low HDL) (Chronic) Hypothyroidism Hospital Course and Treatment Imaging Results: DKA (diabetic ketoacidoses) (Acute) Clinical Impression(s) from Imaging Studies Chest X-Ray 07/28/19 14:33 IMPRESSION: Normal PA and lateral chest. Electronically Signed: Andrew Isra, at 15:10 EDT Tel , Service support , Laboratory Tests 07/30/19 07/30/19 07/30/19 Range/Units 11:20 07:33 03:25 WBC (4.4-11.0) K/mm3 RBC (4.2-5.4) M/mm3 Hgb (12.0-15.0) g/dL Hct (37-47) % MCV (81-99) fL MCH (27.0-32.0) pg MCHC (32-36) g/dL RDW Std Deviation (35.1-43.9) fl RDW Coeff of Jose Roberto (11.6-14.6) % Plt Count (150-450) K/mm3 MPV (6.2-12.0) fl Immature Gran % (Auto) (0.0-0.9) % Neut % (Auto) (47-70) % Lymph % (Auto) (19-41) % [place] % (Auto) (0-10) % Eos % (Auto) (0-5) % Baso % (Auto) (0-1) % Absolute Neuts (auto) (2.0-7.7) X10^3/uL Absolute Lymphs (auto) (0.83-4.51) X10^3/uL Nucleated RBC % (0-5) % Specimen Type VBG pH (7.32-7.42) VBG pO2 (25-40) mmHg VBG O2 Sat (Calc) (50-70) % VBG O2 Content (23-33) mmol/L VBG Base Excess (-1.0-3.5) mmol/L POC Mix VBG pCO2 Pt Tmp (41-51) mmHg O2 Delivery Device Blood Gas Notified Whom Blood Gas Notified Time Sodium 142 (136-145) mmol/L Potassium 4.1 (3.5-5.1) mmol/L Chloride 112 H (98-107) mmol/L Carbon Dioxide 23.0 (21.0-32.0) mmol/L Anion Gap 7 (5-15) BUN 5 L (7-18) mg/dL Creatinine 0.48 L (0.55-1.02) mg/dL Estim Creat Clear Calc 141.08 ml/min Est GFR (MDRD) Af Amer 213 (>60) mL/min Est GFR (MDRD) Non-Af 176 (>60) mL/min BUN/Creatinine Ratio 10.5 (10-20) RATIO Glucose 148 H (74-106) mg/dL Hemoglobin A1c (4.2-6.3) % Serum Osmolality (275-295) mOsm/KG Calcium 8.2 L (8.5-10.1) mg/dL Phosphorus 3.0 (2.5-4.9) mg/dL Magnesium 1.7 (1.6-2.6) mg/dL Total Bilirubin (0.20-1.00) mg/dL AST (15-37) U/L ALT (13-56) U/L Alkaline Phosphatase (45-117) U/L Total Protein (6.4-8.2) g/dL Albumin (3.2-5.0) g/dL Globulin (2.2-4.2) g/dL Albumin/Globulin Ratio (0.9-2.4) RATIO Triglycerides ( - 199) mg/dL Cholesterol (200) mg/dL LDL Cholesterol (0-130) mg/dL LDL Cholesterol Direct (0-99) mg/dL LDL Choles Direct Cmmnt VLDL Cholesterol (5-40) mg/dL HDL Cholesterol (40 - ) mg/dL Lipase (73-393) U/L TSH (0.358-3.74) uIU/mL Urine Color (Yellow) Urine Clarity (Clear) Urine pH (5.0 - 8.0) Ur Specific [place] (1.002-1.030) Urine Protein (Negative) mg/dl Urine Glucose (UA) (Normal) mg/dl Urine Ketones (Negative) mg/dl Urine Occult Blood (Negative) /ul Urine Nitrite (Negative) Urine Bilirubin (Negative) mg/dL Urine Urobilinogen (Normal) mg/dl Ur Leukocyte Esterase (Negative) /ul Urine RBC (0-5) /hpf Urine WBC (0-5) /hpf Ur Squamous Epith Cells (5-10) /hpf Urine Bacteria (None Seen) /hpf Urine Mucus (<or=2+) /hpf Urine Test Negative Acetone Level (NEG) POC Glucose 159 H 131 H (70-110) mg/dL 07/29/19 07/29/19 07/29/19 Range/Units 21:21 20:25 17:03 WBC (4.4-11.0) K/mm3 RBC (4.2-5.4) M/mm3 Hgb (12.0-15.0) g/dL Hct (37-47) % MCV (81-99) fL MCH (27.0-32.0) pg MCHC (32-36) g/dL RDW Std Deviation (35.1-43.9) fl RDW Coeff of Jose Roberto (11.6-14.6) % Plt Count (150-450) K/mm3 MPV (6.2-12.0) fl Immature Gran % (Auto) (0.0-0.9) % Neut % (Auto) (47-70) % Lymph % (Auto) (19-41) % [place] % (Auto) (0-10) % Eos % (Auto) (0-5) % Baso % (Auto) (0-1) % Absolute Neuts (auto) (2.0-7.7) X10^3/uL Absolute Lymphs (auto) (0.83-4.51) X10^3/uL Nucleated RBC % (0-5) % Specimen Type VBG pH (7.32-7.42) VBG pO2 (25-40) mmHg VBG O2 Sat (Calc) (50-70) % VBG O2 Content (23-33) mmol/L VBG Base Excess (-1.0-3.5) mmol/L POC Mix VBG pCO2 Pt Tmp (41-51) mmHg O2 Delivery Device Blood Gas Notified Whom Blood Gas Notified Time Sodium 136 (136-145) mmol/L Potassium 4.6 (3.5-5.1) mmol/L Chloride 104 (98-107) mmol/L Carbon Dioxide 21.0 (21.0-32.0) mmol/L Anion Gap 11 (5-15) BUN 6 L (7-18) mg/dL Creatinine 0.70 (0.55-1.02) mg/dL Estim Creat Clear Calc 96.74 ml/min Est GFR (MDRD) Af Amer 137 (>60) mL/min Est GFR (MDRD) Non-Af 113 (>60) mL/min BUN/Creatinine Ratio 8.6 L (10-20) RATIO Glucose 352 H (74-106) mg/dL Hemoglobin A1c (4.2-6.3) % Serum Osmolality (275-295) mOsm/KG Calcium 8.1 L (8.5-10.1) mg/dL Phosphorus (2.5-4.9) mg/dL Magnesium (1.6-2.6) mg/dL Total Bilirubin (0.20-1.00) mg/dL AST (15-37) U/L ALT (13-56) U/L Alkaline Phosphatase (45-117) U/L Total Protein (6.4-8.2) g/dL Albumin (3.2-5.0) g/dL Globulin (2.2-4.2) g/dL Albumin/Globulin Ratio (0.9-2.4) RATIO Triglycerides ( - 199) mg/dL Cholesterol (200) mg/dL LDL Cholesterol (0-130) mg/dL LDL Cholesterol Direct (0-99) mg/dL LDL Choles Direct Cmmnt VLDL Cholesterol (5-40) mg/dL HDL Cholesterol (40 - ) mg/dL Lipase (73-393) U/L TSH (0.358-3.74) uIU/mL Urine Color (Yellow) Urine Clarity (Clear) Urine pH (5.0 - 8.0) Ur Specific [place] (1.002-1.030) Urine Protein (Negative) mg/dl Urine Glucose (UA) (Normal) mg/dl Urine Ketones (Negative) mg/dl Urine Occult Blood (Negative) /ul Urine Nitrite (Negative) Urine Bilirubin (Negative) mg/dL Urine Urobilinogen (Normal) mg/dl Ur Leukocyte Esterase (Negative) /ul Urine RBC (0-5) /hpf Urine WBC (0-5) /hpf Ur Squamous Epith Cells (5-10) /hpf Urine Bacteria (None Seen) /hpf Urine Mucus (<or=2+) /hpf Urine Test Negative Acetone Level (NEG) POC Glucose 373 H 156 H (70-110) mg/dL 07/29/19 07/29/19 07/29/19 Range/Units 16:05 16:01 15:30 WBC (4.4-11.0) K/mm3 RBC (4.2-5.4) M/mm3 Hgb (12.0-15.0) g/dL Hct (37-47) % MCV (81-99) fL MCH (27.0-32.0) pg MCHC (32-36) g/dL RDW Std Deviation (35.1-43.9) fl RDW Coeff of Jose Roberto (11.6-14.6) % Plt Count (150-450) K/mm3 MPV (6.2-12.0) fl Immature Gran % (Auto) (0.0-0.9) % Neut % (Auto) (47-70) % Lymph % (Auto) (19-41) % [place] % (Auto) (0-10) % Eos % (Auto) (0-5) % Baso % (Auto) (0-1) % Absolute Neuts (auto) (2.0-7.7) X10^3/uL Absolute Lymphs (auto) (0.83-4.51) X10^3/uL Nucleated RBC % (0-5) % Specimen Type VBG pH (7.32-7.42) VBG pO2 (25-40) mmHg VBG O2 Sat (Calc) (50-70) % VBG O2 Content (23-33) mmol/L VBG Base Excess (-1.0-3.5) mmol/L POC Mix VBG pCO2 Pt Tmp (41-51) mmHg O2 Delivery Device Blood Gas Notified Whom Blood Gas Notified Time Sodium 136 (136-145) mmol/L Potassium 4.4 (3.5-5.1) mmol/L Chloride 108 H (98-107) mmol/L Carbon Dioxide 19.0 L (21.0-32.0) mmol/L Anion Gap 9 (5-15) BUN 4 L (7-18) mg/dL Creatinine 0.57 (0.55-1.02) mg/dL Estim Creat Clear Calc 118.80 ml/min Est GFR (MDRD) Af Amer 174 (>60) mL/min Est GFR (MDRD) Non-Af 144 (>60) mL/min BUN/Creatinine Ratio 7.0 L (10-20) RATIO Glucose 129 H (74-106) mg/dL Hemoglobin A1c (4.2-6.3) % Serum Osmolality (275-295) mOsm/KG Calcium 8.4 L (8.5-10.1) mg/dL Phosphorus (2.5-4.9) mg/dL Magnesium (1.6-2.6) mg/dL Total Bilirubin (0.20-1.00) mg/dL AST (15-37) U/L ALT (13-56) U/L Alkaline Phosphatase (45-117) U/L Total Protein (6.4-8.2) g/dL Albumin (3.2-5.0) g/dL Globulin (2.2-4.2) g/dL Albumin/Globulin Ratio (0.9-2.4) RATIO Triglycerides ( - 199) mg/dL Cholesterol (200) mg/dL LDL Cholesterol (0-130) mg/dL LDL Cholesterol Direct (0-99) mg/dL LDL Choles Direct Cmmnt VLDL Cholesterol (5-40) mg/dL HDL Cholesterol (40 - ) mg/dL Lipase (73-393) U/L TSH (0.358-3.74) uIU/mL Urine Color (Yellow) Urine Clarity (Clear) Urine pH (5.0 - 8.0) Ur Specific [place] (1.002-1.030) Urine Protein (Negative) mg/dl Urine Glucose (UA) (Normal) mg/dl Urine Ketones (Negative) mg/dl Urine Occult Blood (Negative) /ul Urine Nitrite (Negative) Urine Bilirubin (Negative) mg/dL Urine Urobilinogen (Normal) mg/dl Ur Leukocyte Esterase (Negative) /ul Urine RBC (0-5) /hpf Urine WBC (0-5) /hpf Ur Squamous Epith Cells (5-10) /hpf Urine Bacteria (None Seen) /hpf Urine Mucus (<or=2+) /hpf Urine Test Negative Acetone Level (NEG) POC Glucose 127 H 124 H (70-110) mg/dL 07/29/19 07/29/19 07/29/19 Range/Units 15:00 14:30 14:01 WBC (4.4-11.0) K/mm3 RBC (4.2-5.4) M/mm3 Hgb (12.0-15.0) g/dL Hct (37-47) % MCV (81-99) fL MCH (27.0-32.0) pg MCHC (32-36) g/dL RDW Std Deviation (35.1-43.9) fl RDW Coeff of Jose Roberto (11.6-14.6) % Plt Count (150-450) K/mm3 MPV (6.2-12.0) fl Immature Gran % (Auto) (0.0-0.9) % Neut % (Auto) (47-70) % Lymph % (Auto) (19-41) % [place] % (Auto) (0-10) % Eos % (Auto) (0-5) % Baso % (Auto) (0-1) % Absolute Neuts (auto) (2.0-7.7) X10^3/uL Absolute Lymphs (auto) (0.83-4.51) X10^3/uL Nucleated RBC % (0-5) % Specimen Type VBG pH (7.32-7.42) VBG pO2 (25-40) mmHg VBG O2 Sat (Calc) (50-70) % VBG O2 Content (23-33) mmol/L VBG Base Excess (-1.0-3.5) mmol/L POC Mix VBG pCO2 Pt Tmp (41-51) mmHg O2 Delivery Device Blood Gas Notified Whom Blood Gas Notified Time Sodium (136-145) mmol/L Potassium (3.5-5.1) mmol/L Chloride (98-107) mmol/L Carbon Dioxide (21.0-32.0) mmol/L Anion Gap (5-15) BUN (7-18) mg/dL Creatinine (0.55-1.02) mg/dL Estim Creat Clear Calc ml/min Est GFR (MDRD) Af Amer (>60) mL/min Est GFR (MDRD) Non-Af (>60) mL/min BUN/Creatinine Ratio (10-20) RATIO Glucose (74-106) mg/dL Hemoglobin A1c (4.2-6.3) % Serum Osmolality (275-295) mOsm/KG Calcium (8.5-10.1) mg/dL Phosphorus (2.5-4.9) mg/dL Magnesium (1.6-2.6) mg/dL Total Bilirubin (0.20-1.00) mg/dL AST (15-37) U/L ALT (13-56) U/L Alkaline Phosphatase (45-117) U/L Total Protein (6.4-8.2) g/dL Albumin (3.2-5.0) g/dL Globulin (2.2-4.2) g/dL Albumin/Globulin Ratio (0.9-2.4) RATIO Triglycerides ( - 199) mg/dL Cholesterol (200) mg/dL LDL Cholesterol (0-130) mg/dL LDL Cholesterol Direct (0-99) mg/dL LDL Choles Direct Cmmnt VLDL Cholesterol (5-40) mg/dL HDL Cholesterol (40 - ) mg/dL Lipase (73-393) U/L TSH (0.358-3.74) uIU/mL Urine Color (Yellow) Urine Clarity (Clear) Urine pH (5.0 - 8.0) Ur Specific [place] (1.002-1.030) Urine Protein (Negative) mg/dl Urine Glucose (UA) (Normal) mg/dl Urine Ketones (Negative) mg/dl Urine Occult Blood (Negative) /ul Urine Nitrite (Negative) Urine Bilirubin (Negative) mg/dL Urine Urobilinogen (Normal) mg/dl Ur Leukocyte Esterase (Negative) /ul Urine RBC (0-5) /hpf Urine WBC (0-5) /hpf Ur Squamous Epith Cells (5-10) /hpf Urine Bacteria (None Seen) /hpf Urine Mucus (<or=2+) /hpf Urine Test Negative Acetone Level (NEG) POC Glucose 95 84 94 (70-110) mg/dL 07/29/19 07/29/19 07/29/19 Range/Units 13:29 12:57 12:00 WBC (4.4-11.0) K/mm3 RBC (4.2-5.4) M/mm3 Hgb (12.0-15.0) g/dL Hct (37-47) % MCV (81-99) fL MCH (27.0-32.0) pg MCHC (32-36) g/dL RDW Std Deviation (35.1-43.9) fl RDW Coeff of Jose Roberto (11.6-14.6) % Plt Count (150-450) K/mm3 MPV (6.2-12.0) fl Immature Gran % (Auto) (0.0-0.9) % Neut % (Auto) (47-70) % Lymph % (Auto) (19-41) % [place] % (Auto) (0-10) % Eos % (Auto) (0-5) % Baso % (Auto) (0-1) % Absolute Neuts (auto) (2.0-7.7) X10^3/uL Absolute Lymphs (auto) (0.83-4.51) X10^3/uL Nucleated RBC % (0-5) % Specimen Type VBG pH (7.32-7.42) VBG pO2 (25-40) mmHg VBG O2 Sat (Calc) (50-70) % VBG O2 Content (23-33) mmol/L VBG Base Excess (-1.0-3.5) mmol/L POC Mix VBG pCO2 Pt Tmp (41-51) mmHg O2 Delivery Device Blood Gas Notified Whom Blood Gas Notified Time Sodium 135 L (136-145) mmol/L Potassium 4.0 (3.5-5.1) mmol/L Chloride 108 H (98-107) mmol/L Carbon Dioxide 19.0 L (21.0-32.0) mmol/L Anion Gap 8 (5-15) BUN 4 L (7-18) mg/dL Creatinine 0.74 (0.55-1.02) mg/dL Estim Creat Clear Calc 91.51 ml/min Est GFR (MDRD) Af Amer 127 (>60) mL/min Est GFR (MDRD) Non-Af 105 (>60) mL/min BUN/Creatinine Ratio 5.4 L (10-20) RATIO Glucose 107 H (74-106) mg/dL Hemoglobin A1c (4.2-6.3) % Serum Osmolality (275-295) mOsm/KG Calcium 8.5 (8.5-10.1) mg/dL Phosphorus (2.5-4.9) mg/dL Magnesium (1.6-2.6) mg/dL Total Bilirubin (0.20-1.00) mg/dL AST (15-37) U/L ALT (13-56) U/L Alkaline Phosphatase (45-117) U/L Total Protein (6.4-8.2) g/dL Albumin (3.2-5.0) g/dL Globulin (2.2-4.2) g/dL Albumin/Globulin Ratio (0.9-2.4) RATIO Triglycerides ( - 199) mg/dL Cholesterol (200) mg/dL LDL Cholesterol (0-130) mg/dL LDL Cholesterol Direct (0-99) mg/dL LDL Choles Direct Cmmnt VLDL Cholesterol (5-40) mg/dL HDL Cholesterol (40 - ) mg/dL Lipase (73-393) U/L TSH (0.358-3.74) uIU/mL Urine Color (Yellow) Urine Clarity (Clear) Urine pH (5.0 - 8.0) Ur Specific [place] (1.002-1.030) Urine Protein (Negative) mg/dl Urine Glucose (UA) (Normal) mg/dl Urine Ketones (Negative) mg/dl Urine Occult Blood (Negative) /ul Urine Nitrite (Negative) Urine Bilirubin (Negative) mg/dL Urine Urobilinogen (Normal) mg/dl Ur Leukocyte Esterase (Negative) /ul Urine RBC (0-5) /hpf Urine WBC (0-5) /hpf Ur Squamous Epith Cells (5-10) /hpf Urine Bacteria (None Seen) /hpf Urine Mucus (<or=2+) /hpf Urine Test Negative Acetone Level (NEG) POC Glucose 67 L 70 (70-110) mg/dL 07/29/19 07/29/19 07/29/19 Range/Units 11:55 10:56 09:52 WBC (4.4-11.0) K/mm3 RBC (4.2-5.4) M/mm3 Hgb (12.0-15.0) g/dL Hct (37-47) % MCV (81-99) fL MCH (27.0-32.0) pg MCHC (32-36) g/dL RDW Std Deviation (35.1-43.9) fl RDW Coeff of Jose Roberto (11.6-14.6) % Plt Count (150-450) K/mm3 MPV (6.2-12.0) fl Immature Gran % (Auto) (0.0-0.9) % Neut % (Auto) (47-70) % Lymph % (Auto) (19-41) % [place] % (Auto) (0-10) % Eos % (Auto) (0-5) % Baso % (Auto) (0-1) % Absolute Neuts (auto) (2.0-7.7) X10^3/uL Absolute Lymphs (auto) (0.83-4.51) X10^3/uL Nucleated RBC % (0-5) % Specimen Type VBG pH (7.32-7.42) VBG pO2 (25-40) mmHg VBG O2 Sat (Calc) (50-70) % VBG O2 Content (23-33) mmol/L VBG Base Excess (-1.0-3.5) mmol/L POC Mix VBG pCO2 Pt Tmp (41-51) mmHg O2 Delivery Device Blood Gas Notified Whom Blood Gas Notified Time Sodium (136-145) mmol/L Potassium (3.5-5.1) mmol/L Chloride (98-107) mmol/L Carbon Dioxide (21.0-32.0) mmol/L Anion Gap (5-15) BUN (7-18) mg/dL Creatinine (0.55-1.02) mg/dL Estim Creat Clear Calc ml/min Est GFR (MDRD) Af Amer (>60) mL/min Est GFR (MDRD) Non-Af (>60) mL/min BUN/Creatinine Ratio (10-20) RATIO Glucose (74-106) mg/dL Hemoglobin A1c (4.2-6.3) % Serum Osmolality (275-295) mOsm/KG Calcium (8.5-10.1) mg/dL Phosphorus (2.5-4.9) mg/dL Magnesium (1.6-2.6) mg/dL Total Bilirubin (0.20-1.00) mg/dL AST (15-37) U/L ALT (13-56) U/L Alkaline Phosphatase (45-117) U/L Total Protein (6.4-8.2) g/dL Albumin (3.2-5.0) g/dL Globulin (2.2-4.2) g/dL Albumin/Globulin Ratio (0.9-2.4) RATIO Triglycerides ( - 199) mg/dL Cholesterol (200) mg/dL LDL Cholesterol (0-130) mg/dL LDL Cholesterol Direct (0-99) mg/dL LDL Choles Direct Cmmnt VLDL Cholesterol (5-40) mg/dL HDL Cholesterol (40 - ) mg/dL Lipase (73-393) U/L TSH (0.358-3.74) uIU/mL Urine Color (Yellow) Urine Clarity (Clear) Urine pH (5.0 - 8.0) Ur Specific [place] (1.002-1.030) Urine Protein (Negative) mg/dl Urine Glucose (UA) (Normal) mg/dl Urine Ketones (Negative) mg/dl Urine Occult Blood (Negative) /ul Urine Nitrite (Negative) Urine Bilirubin (Negative) mg/dL Urine Urobilinogen (Normal) mg/dl Ur Leukocyte Esterase (Negative) /ul Urine RBC (0-5) /hpf Urine WBC (0-5) /hpf Ur Squamous Epith Cells (5-10) /hpf Urine Bacteria (None Seen) /hpf Urine Mucus (<or=2+) /hpf Urine Test Negative Acetone Level (NEG) POC Glucose 94 191 H 244 H (70-110) mg/dL 07/29/19 07/29/19 07/29/19 Range/Units 08:40 08:40 08:26 WBC (4.4-11.0) K/mm3 RBC (4.2-5.4) M/mm3 Hgb (12.0-15.0) g/dL Hct (37-47) % MCV (81-99) fL MCH (27.0-32.0) pg MCHC (32-36) g/dL RDW Std Deviation (35.1-43.9) fl RDW Coeff of Jose Roberto (11.6-14.6) % Plt Count (150-450) K/mm3 MPV (6.2-12.0) fl Immature Gran % (Auto) (0.0-0.9) % Neut % (Auto) (47-70) % Lymph % (Auto) (19-41) % [place] % (Auto) (0-10) % Eos % (Auto) (0-5) % Baso % (Auto) (0-1) % Absolute Neuts (auto) (2.0-7.7) X10^3/uL Absolute Lymphs (auto) (0.83-4.51) X10^3/uL Nucleated RBC % (0-5) % Specimen Type VBG pH (7.32-7.42) VBG pO2 (25-40) mmHg VBG O2 Sat (Calc) (50-70) % VBG O2 Content (23-33) mmol/L VBG Base Excess (-1.0-3.5) mmol/L POC Mix VBG pCO2 Pt Tmp (41-51) mmHg O2 Delivery Device Blood Gas Notified Whom Blood Gas Notified Time Sodium 135 L (136-145) mmol/L Potassium 5.2 H (3.5-5.1) mmol/L Chloride 104 (98-107) mmol/L Carbon Dioxide 10.0 L (21.0-32.0) mmol/L Anion Gap 21 H (5-15) BUN 6 L (7-18) mg/dL Creatinine 0.66 (0.55-1.02) mg/dL Estim Creat Clear Calc 102.60 ml/min Est GFR (MDRD) Af Amer 145 (>60) mL/min Est GFR (MDRD) Non-Af 120 (>60) mL/min BUN/Creatinine Ratio 9.0 L (10-20) RATIO Glucose 390 H (74-106) mg/dL Hemoglobin A1c (4.2-6.3) % Serum Osmolality (275-295) mOsm/KG Calcium 8.3 L (8.5-10.1) mg/dL Phosphorus (2.5-4.9) mg/dL Magnesium (1.6-2.6) mg/dL Total Bilirubin (0.20-1.00) mg/dL AST (15-37) U/L ALT (13-56) U/L Alkaline Phosphatase (45-117) U/L Total Protein (6.4-8.2) g/dL Albumin (3.2-5.0) g/dL Globulin (2.2-4.2) g/dL Albumin/Globulin Ratio (0.9-2.4) RATIO Triglycerides ( - 199) mg/dL Cholesterol (200) mg/dL LDL Cholesterol (0-130) mg/dL LDL Cholesterol Direct 144 H (0-99) mg/dL LDL Choles Direct Cmmnt TNP VLDL Cholesterol (5-40) mg/dL HDL Cholesterol (40 - ) mg/dL Lipase (73-393) U/L TSH (0.358-3.74) uIU/mL Urine Color (Yellow) Urine Clarity (Clear) Urine pH (5.0 - 8.0) Ur Specific [place] (1.002-1.030) Urine Protein (Negative) mg/dl Urine Glucose (UA) (Normal) mg/dl Urine Ketones (Negative) mg/dl Urine Occult Blood (Negative) /ul Urine Nitrite (Negative) Urine Bilirubin (Negative) mg/dL Urine Urobilinogen (Normal) mg/dl Ur Leukocyte Esterase (Negative) /ul Urine RBC (0-5) /hpf Urine WBC (0-5) /hpf Ur Squamous Epith Cells (5-10) /hpf Urine Bacteria (None Seen) /hpf Urine Mucus (<or=2+) /hpf Urine Test Negative Acetone Level (NEG) POC Glucose 400 H (70-110) mg/dL 07/29/19 07/29/19 07/29/19 Range/Units 06:45 05:16 04:19 WBC (4.4-11.0) K/mm3 RBC (4.2-5.4) M/mm3 Hgb (12.0-15.0) g/dL Hct (37-47) % MCV (81-99) fL MCH (27.0-32.0) pg MCHC (32-36) g/dL RDW Std Deviation (35.1-43.9) fl RDW Coeff of Jose Roberto (11.6-14.6) % Plt Count (150-450) K/mm3 MPV (6.2-12.0) fl Immature Gran % (Auto) (0.0-0.9) % Neut % (Auto) (47-70) % Lymph % (Auto) (19-41) % [place] % (Auto) (0-10) % Eos % (Auto) (0-5) % Baso % (Auto) (0-1) % Absolute Neuts (auto) (2.0-7.7) X10^3/uL Absolute Lymphs (auto) (0.83-4.51) X10^3/uL Nucleated RBC % (0-5) % Specimen Type VBG pH (7.32-7.42) VBG pO2 (25-40) mmHg VBG O2 Sat (Calc) (50-70) % VBG O2 Content (23-33) mmol/L VBG Base Excess (-1.0-3.5) mmol/L POC Mix VBG pCO2 Pt Tmp (41-51) mmHg O2 Delivery Device Blood Gas Notified Whom Blood Gas Notified Time Sodium (136-145) mmol/L Potassium (3.5-5.1) mmol/L Chloride (98-107) mmol/L Carbon Dioxide (21.0-32.0) mmol/L Anion Gap (5-15) BUN (7-18) mg/dL Creatinine (0.55-1.02) mg/dL Estim Creat Clear Calc ml/min Est GFR (MDRD) Af Amer (>60) mL/min Est GFR (MDRD) Non-Af (>60) mL/min BUN/Creatinine Ratio (10-20) RATIO Glucose (74-106) mg/dL Hemoglobin A1c (4.2-6.3) % Serum Osmolality (275-295) mOsm/KG Calcium (8.5-10.1) mg/dL Phosphorus (2.5-4.9) mg/dL Magnesium (1.6-2.6) mg/dL Total Bilirubin (0.20-1.00) mg/dL AST (15-37) U/L ALT (13-56) U/L Alkaline Phosphatase (45-117) U/L Total Protein (6.4-8.2) g/dL Albumin (3.2-5.0) g/dL Globulin (2.2-4.2) g/dL Albumin/Globulin Ratio (0.9-2.4) RATIO Triglycerides ( - 199) mg/dL Cholesterol (200) mg/dL LDL Cholesterol (0-130) mg/dL LDL Cholesterol Direct (0-99) mg/dL LDL Choles Direct Cmmnt VLDL Cholesterol (5-40) mg/dL HDL Cholesterol (40 - ) mg/dL Lipase (73-393) U/L TSH (0.358-3.74) uIU/mL Urine Color (Yellow) Urine Clarity (Clear) Urine pH (5.0 - 8.0) Ur Specific [place] (1.002-1.030) Urine Protein (Negative) mg/dl Urine Glucose (UA) (Normal) mg/dl Urine Ketones (Negative) mg/dl Urine Occult Blood (Negative) /ul Urine Nitrite (Negative) Urine Bilirubin (Negative) mg/dL Urine Urobilinogen (Normal) mg/dl Ur Leukocyte Esterase (Negative) /ul Urine RBC (0-5) /hpf Urine WBC (0-5) /hpf Ur Squamous Epith Cells (5-10) /hpf Urine Bacteria (None Seen) /hpf Urine Mucus (<or=2+) /hpf Urine Test Negative Acetone Level (NEG) POC Glucose 341 H 151 H 161 H (70-110) mg/dL 07/29/19 07/29/19 07/29/19 Range/Units 04:05 04:05 04:05 WBC (4.4-11.0) K/mm3 RBC (4.2-5.4) M/mm3 Hgb (12.0-15.0) g/dL Hct (37-47) % MCV (81-99) fL MCH (27.0-32.0) pg MCHC (32-36) g/dL RDW Std Deviation (35.1-43.9) fl RDW Coeff of Jose Roberto (11.6-14.6) % Plt Count (150-450) K/mm3 MPV (6.2-12.0) fl Immature Gran % (Auto) (0.0-0.9) % Neut % (Auto) (47-70) % Lymph % (Auto) (19-41) % [place] % (Auto) (0-10) % Eos % (Auto) (0-5) % Baso % (Auto) (0-1) % Absolute Neuts (auto) (2.0-7.7) X10^3/uL Absolute Lymphs (auto) (0.83-4.51) X10^3/uL Nucleated RBC % (0-5) % Specimen Type VBG pH (7.32-7.42) VBG pO2 (25-40) mmHg VBG O2 Sat (Calc) (50-70) % VBG O2 Content (23-33) mmol/L VBG Base Excess (-1.0-3.5) mmol/L POC Mix VBG pCO2 Pt Tmp (41-51) mmHg O2 Delivery Device Blood Gas Notified Whom Blood Gas Notified Time Sodium (136-145) mmol/L Potassium (3.5-5.1) mmol/L Chloride (98-107) mmol/L Carbon Dioxide (21.0-32.0) mmol/L Anion Gap (5-15) BUN (7-18) mg/dL Creatinine (0.55-1.02) mg/dL Estim Creat Clear Calc ml/min Est GFR (MDRD) Af Amer (>60) mL/min Est GFR (MDRD) Non-Af (>60) mL/min BUN/Creatinine Ratio (10-20) RATIO Glucose (74-106) mg/dL Hemoglobin A1c 9.2 H (4.2-6.3) % Serum Osmolality (275-295) mOsm/KG Calcium (8.5-10.1) mg/dL Phosphorus (2.5-4.9) mg/dL Magnesium (1.6-2.6) mg/dL Total Bilirubin (0.20-1.00) mg/dL AST (15-37) U/L ALT (13-56) U/L Alkaline Phosphatase (45-117) U/L Total Protein (6.4-8.2) g/dL Albumin (3.2-5.0) g/dL Globulin (2.2-4.2) g/dL Albumin/Globulin Ratio (0.9-2.4) RATIO Triglycerides 239 H ( - 199) mg/dL Cholesterol 188 (200) mg/dL LDL Cholesterol 98 (0-130) mg/dL LDL Cholesterol Direct (0-99) mg/dL LDL Choles Direct Cmmnt VLDL Cholesterol 48 H (5-40) mg/dL HDL Cholesterol 42 (40 - ) mg/dL Lipase (73-393) U/L TSH 0.90 (0.358-3.74) uIU/mL Urine Color (Yellow) Urine Clarity (Clear) Urine pH (5.0 - 8.0) Ur Specific [place] (1.002-1.030) Urine Protein (Negative) mg/dl Urine Glucose (UA) (Normal) mg/dl Urine Ketones (Negative) mg/dl Urine Occult Blood (Negative) /ul Urine Nitrite (Negative) Urine Bilirubin (Negative) mg/dL Urine Urobilinogen (Normal) mg/dl Ur Leukocyte Esterase (Negative) /ul Urine RBC (0-5) /hpf Urine WBC (0-5) /hpf Ur Squamous Epith Cells (5-10) /hpf Urine Bacteria (None Seen) /hpf Urine Mucus (<or=2+) /hpf Urine Test Negative Acetone Level (NEG) POC Glucose (70-110) mg/dL 07/29/19 07/29/19 07/29/19 Range/Units 04:05 04:05 02:58 WBC 7.2 (4.4-11.0) K/mm3 RBC 4.06 L (4.2-5.4) M/mm3 Hgb 11.6 L (12.0-15.0) g/dL Hct 35.8 L (37-47) % MCV 88.2 (81-99) fL MCH 28.6 (27.0-32.0) pg MCHC 32.4 (32-36) g/dL RDW Std Deviation 40.0 (35.1-43.9) fl RDW Coeff of Jose Roberto 12.3 (11.6-14.6) % Plt Count 321 (150-450) K/mm3 MPV 8.7 (6.2-12.0) fl Immature Gran % (Auto) 0.700 (0.0-0.9) % Neut % (Auto) 63.5 (47-70) % Lymph % (Auto) 27.7 (19-41) % [place] % (Auto) 6.1 (0-10) % Eos % (Auto) 1.0 (0-5) % Baso % (Auto) 1.0 (0-1) % Absolute Neuts (auto) 4.6 (2.0-7.7) X10^3/uL Absolute Lymphs (auto) 2.00 (0.83-4.51) X10^3/uL Nucleated RBC % 0 (0-5) % Specimen Type VBG pH (7.32-7.42) VBG pO2 (25-40) mmHg VBG O2 Sat (Calc) (50-70) % VBG O2 Content (23-33) mmol/L VBG Base Excess (-1.0-3.5) mmol/L POC Mix VBG pCO2 Pt Tmp (41-51) mmHg O2 Delivery Device Blood Gas Notified Whom Blood Gas Notified Time Sodium 138 (136-145) mmol/L Potassium 3.6 (3.5-5.1) mmol/L Chloride 106 (98-107) mmol/L Carbon Dioxide 21.0 (21.0-32.0) mmol/L Anion Gap 11 (5-15) BUN 5 L (7-18) mg/dL Creatinine 0.59 (0.55-1.02) mg/dL Estim Creat Clear Calc 114.77 ml/min Est GFR (MDRD) Af Amer 168 (>60) mL/min Est GFR (MDRD) Non-Af 139 (>60) mL/min BUN/Creatinine Ratio 8.5 L (10-20) RATIO Glucose 158 H (74-106) mg/dL Hemoglobin A1c (4.2-6.3) % Serum Osmolality (275-295) mOsm/KG Calcium 7.9 L (8.5-10.1) mg/dL Phosphorus 2.5 (2.5-4.9) mg/dL Magnesium 1.8 (1.6-2.6) mg/dL Total Bilirubin 0.30 (0.20-1.00) mg/dL AST 19 (15-37) U/L ALT 25 (13-56) U/L Alkaline Phosphatase 149 H (45-117) U/L Total Protein 6.5 (6.4-8.2) g/dL Albumin 2.6 L (3.2-5.0) g/dL Globulin 3.9 (2.2-4.2) g/dL Albumin/Globulin Ratio 0.7 L (0.9-2.4) RATIO Triglycerides ( - 199) mg/dL Cholesterol (200) mg/dL LDL Cholesterol (0-130) mg/dL LDL Cholesterol Direct (0-99) mg/dL LDL Choles Direct Cmmnt VLDL Cholesterol (5-40) mg/dL HDL Cholesterol (40 - ) mg/dL Lipase (73-393) U/L TSH (0.358-3.74) uIU/mL Urine Color (Yellow) Urine Clarity (Clear) Urine pH (5.0 - 8.0) Ur Specific [place] (1.002-1.030) Urine Protein (Negative) mg/dl Urine Glucose (UA) (Normal) mg/dl Urine Ketones (Negative) mg/dl Urine Occult Blood (Negative) /ul Urine Nitrite (Negative) Urine Bilirubin (Negative) mg/dL Urine Urobilinogen (Normal) mg/dl Ur Leukocyte Esterase (Negative) /ul Urine RBC (0-5) /hpf Urine WBC (0-5) /hpf Ur Squamous Epith Cells (5-10) /hpf Urine Bacteria (None Seen) /hpf Urine Mucus (<or=2+) /hpf Urine Test Negative Acetone Level (NEG) POC Glucose 135 H (70-110) mg/dL 07/29/19 07/29/19 07/29/19 Range/Units 01:24 01:15 00:35 WBC (4.4-11.0) K/mm3 RBC (4.2-5.4) M/mm3 Hgb (12.0-15.0) g/dL Hct (37-47) % MCV (81-99) fL MCH (27.0-32.0) pg MCHC (32-36) g/dL RDW Std Deviation (35.1-43.9) fl RDW Coeff of Jose Roberto (11.6-14.6) % Plt Count (150-450) K/mm3 MPV (6.2-12.0) fl Immature Gran % (Auto) (0.0-0.9) % Neut % (Auto) (47-70) % Lymph % (Auto) (19-41) % [place] % (Auto) (0-10) % Eos % (Auto) (0-5) % Baso % (Auto) (0-1) % Absolute Neuts (auto) (2.0-7.7) X10^3/uL Absolute Lymphs (auto) (0.83-4.51) X10^3/uL Nucleated RBC % (0-5) % Specimen Type VBG pH (7.32-7.42) VBG pO2 (25-40) mmHg VBG O2 Sat (Calc) (50-70) % VBG O2 Content (23-33) mmol/L VBG Base Excess (-1.0-3.5) mmol/L POC Mix VBG pCO2 Pt Tmp (41-51) mmHg O2 Delivery Device Blood Gas Notified Whom Blood Gas Notified Time Sodium 135 L (136-145) mmol/L Potassium 4.0 (3.5-5.1) mmol/L Chloride 106 (98-107) mmol/L Carbon Dioxide 18.0 L (21.0-32.0) mmol/L Anion Gap 11 (5-15) BUN 5 L (7-18) mg/dL Creatinine 0.76 (0.55-1.02) mg/dL Estim Creat Clear Calc 89.10 ml/min Est GFR (MDRD) Af Amer 123 (>60) mL/min Est GFR (MDRD) Non-Af 102 (>60) mL/min BUN/Creatinine Ratio 6.5 L (10-20) RATIO Glucose 154 H (74-106) mg/dL Hemoglobin A1c (4.2-6.3) % Serum Osmolality (275-295) mOsm/KG Calcium 7.9 L (8.5-10.1) mg/dL Phosphorus (2.5-4.9) mg/dL Magnesium (1.6-2.6) mg/dL Total Bilirubin (0.20-1.00) mg/dL AST (15-37) U/L ALT (13-56) U/L Alkaline Phosphatase (45-117) U/L Total Protein (6.4-8.2) g/dL Albumin (3.2-5.0) g/dL Globulin (2.2-4.2) g/dL Albumin/Globulin Ratio (0.9-2.4) RATIO Triglycerides ( - 199) mg/dL Cholesterol (200) mg/dL LDL Cholesterol (0-130) mg/dL LDL Cholesterol Direct (0-99) mg/dL LDL Choles Direct Cmmnt VLDL Cholesterol (5-40) mg/dL HDL Cholesterol (40 - ) mg/dL Lipase (73-393) U/L TSH (0.358-3.74) uIU/mL Urine Color (Yellow) Urine Clarity (Clear) Urine pH (5.0 - 8.0) Ur Specific [place] (1.002-1.030) Urine Protein (Negative) mg/dl Urine Glucose (UA) (Normal) mg/dl Urine Ketones (Negative) mg/dl Urine Occult Blood (Negative) /ul Urine Nitrite (Negative) Urine Bilirubin (Negative) mg/dL Urine Urobilinogen (Normal) mg/dl Ur Leukocyte Esterase (Negative) /ul Urine RBC (0-5) /hpf Urine WBC (0-5) /hpf Ur Squamous Epith Cells (5-10) /hpf Urine Bacteria (None Seen) /hpf Urine Mucus (<or=2+) /hpf Urine Test Negative Acetone Level (NEG) POC Glucose 156 H 214 H (70-110) mg/dL 07/28/19 07/28/19 07/28/19 Range/Units 23:26 22:28 21:25 WBC (4.4-11.0) K/mm3 RBC (4.2-5.4) M/mm3 Hgb (12.0-15.0) g/dL Hct (37-47) % MCV (81-99) fL MCH (27.0-32.0) pg MCHC (32-36) g/dL RDW Std Deviation (35.1-43.9) fl RDW Coeff of Jose Roberto (11.6-14.6) % Plt Count (150-450) K/mm3 MPV (6.2-12.0) fl Immature Gran % (Auto) (0.0-0.9) % Neut % (Auto) (47-70) % Lymph % (Auto) (19-41) % [place] % (Auto) (0-10) % Eos % (Auto) (0-5) % Baso % (Auto) (0-1) % Absolute Neuts (auto) (2.0-7.7) X10^3/uL Absolute Lymphs (auto) (0.83-4.51) X10^3/uL Nucleated RBC % (0-5) % Specimen Type VBG pH (7.32-7.42) VBG pO2 (25-40) mmHg VBG O2 Sat (Calc) (50-70) % VBG O2 Content (23-33) mmol/L VBG Base Excess (-1.0-3.5) mmol/L POC Mix VBG pCO2 Pt Tmp (41-51) mmHg O2 Delivery Device Blood Gas Notified Whom Blood Gas Notified Time Sodium 133 L (136-145) mmol/L Potassium 4.1 (3.5-5.1) mmol/L Chloride 102 (98-107) mmol/L Carbon Dioxide 22.0 (21.0-32.0) mmol/L Anion Gap 9 (5-15) BUN 7 (7-18) mg/dL Creatinine 0.67 (0.55-1.02) mg/dL Estim Creat Clear Calc 101.07 ml/min Est GFR (MDRD) Af Amer 143 (>60) mL/min Est GFR (MDRD) Non-Af 118 (>60) mL/min BUN/Creatinine Ratio 10.4 (10-20) RATIO Glucose 142 H (74-106) mg/dL Hemoglobin A1c (4.2-6.3) % Serum Osmolality (275-295) mOsm/KG Calcium 8.3 L (8.5-10.1) mg/dL Phosphorus (2.5-4.9) mg/dL Magnesium (1.6-2.6) mg/dL Total Bilirubin (0.20-1.00) mg/dL AST (15-37) U/L ALT (13-56) U/L Alkaline Phosphatase (45-117) U/L Total Protein (6.4-8.2) g/dL Albumin (3.2-5.0) g/dL Globulin (2.2-4.2) g/dL Albumin/Globulin Ratio (0.9-2.4) RATIO Triglycerides ( - 199) mg/dL Cholesterol (200) mg/dL LDL Cholesterol (0-130) mg/dL LDL Cholesterol Direct (0-99) mg/dL LDL Choles Direct Cmmnt VLDL Cholesterol (5-40) mg/dL HDL Cholesterol (40 - ) mg/dL Lipase (73-393) U/L TSH (0.358-3.74) uIU/mL Urine Color (Yellow) Urine Clarity (Clear) Urine pH (5.0 - 8.0) Ur Specific [place] (1.002-1.030) Urine Protein (Negative) mg/dl Urine Glucose (UA) (Normal) mg/dl Urine Ketones (Negative) mg/dl Urine Occult Blood (Negative) /ul Urine Nitrite (Negative) Urine Bilirubin (Negative) mg/dL Urine Urobilinogen (Normal) mg/dl Ur Leukocyte Esterase (Negative) /ul Urine RBC (0-5) /hpf Urine WBC (0-5) /hpf Ur Squamous Epith Cells (5-10) /hpf Urine Bacteria (None Seen) /hpf Urine Mucus (<or=2+) /hpf Urine Test Negative Acetone Level (NEG) POC Glucose 347 H 267 H (70-110) mg/dL 07/28/19 07/28/19 07/28/19 Range/Units 21:24 20:45 20:27 WBC (4.4-11.0) K/mm3 RBC (4.2-5.4) M/mm3 Hgb (12.0-15.0) g/dL Hct (37-47) % MCV (81-99) fL MCH (27.0-32.0) pg MCHC (32-36) g/dL RDW Std Deviation (35.1-43.9) fl RDW Coeff of Jose Roberto (11.6-14.6) % Plt Count (150-450) K/mm3 MPV (6.2-12.0) fl Immature Gran % (Auto) (0.0-0.9) % Neut % (Auto) (47-70) % Lymph % (Auto) (19-41) % [place] % (Auto) (0-10) % Eos % (Auto) (0-5) % Baso % (Auto) (0-1) % Absolute Neuts (auto) (2.0-7.7) X10^3/uL Absolute Lymphs (auto) (0.83-4.51) X10^3/uL Nucleated RBC % (0-5) % Specimen Type VBG pH (7.32-7.42) VBG pO2 (25-40) mmHg VBG O2 Sat (Calc) (50-70) % VBG O2 Content (23-33) mmol/L VBG Base Excess (-1.0-3.5) mmol/L POC Mix VBG pCO2 Pt Tmp (41-51) mmHg O2 Delivery Device Blood Gas Notified Whom Blood Gas Notified Time Sodium (136-145) mmol/L Potassium (3.5-5.1) mmol/L Chloride (98-107) mmol/L Carbon Dioxide (21.0-32.0) mmol/L Anion Gap (5-15) BUN (7-18) mg/dL Creatinine (0.55-1.02) mg/dL Estim Creat Clear Calc ml/min Est GFR (MDRD) Af Amer (>60) mL/min Est GFR (MDRD) Non-Af (>60) mL/min BUN/Creatinine Ratio (10-20) RATIO Glucose (74-106) mg/dL Hemoglobin A1c (4.2-6.3) % Serum Osmolality (275-295) mOsm/KG Calcium (8.5-10.1) mg/dL Phosphorus (2.5-4.9) mg/dL Magnesium (1.6-2.6) mg/dL Total Bilirubin (0.20-1.00) mg/dL AST (15-37) U/L ALT (13-56) U/L Alkaline Phosphatase (45-117) U/L Total Protein (6.4-8.2) g/dL Albumin (3.2-5.0) g/dL Globulin (2.2-4.2) g/dL Albumin/Globulin Ratio (0.9-2.4) RATIO Triglycerides ( - 199) mg/dL Cholesterol (200) mg/dL LDL Cholesterol (0-130) mg/dL LDL Cholesterol Direct (0-99) mg/dL LDL Choles Direct Cmmnt VLDL Cholesterol (5-40) mg/dL HDL Cholesterol (40 - ) mg/dL Lipase (73-393) U/L TSH (0.358-3.74) uIU/mL Urine Color (Yellow) Urine Clarity (Clear) Urine pH (5.0 - 8.0) Ur Specific [place] (1.002-1.030) Urine Protein (Negative) mg/dl Urine Glucose (UA) (Normal) mg/dl Urine Ketones (Negative) mg/dl Urine Occult Blood (Negative) /ul Urine Nitrite (Negative) Urine Bilirubin (Negative) mg/dL Urine Urobilinogen (Normal) mg/dl Ur Leukocyte Esterase (Negative) /ul Urine RBC (0-5) /hpf Urine WBC (0-5) /hpf Ur Squamous Epith Cells (5-10) /hpf Urine Bacteria (None Seen) /hpf Urine Mucus (<or=2+) /hpf Urine Test Negative Acetone Level (NEG) POC Glucose 147 H 86 69 L (70-110) mg/dL 07/28/19 07/28/19 07/28/19 Range/Units 19:32 18:28 17:45 WBC (4.4-11.0) K/mm3 RBC (4.2-5.4) M/mm3 Hgb (12.0-15.0) g/dL Hct (37-47) % MCV (81-99) fL MCH (27.0-32.0) pg MCHC (32-36) g/dL RDW Std Deviation (35.1-43.9) fl RDW Coeff of Jose Roberto (11.6-14.6) % Plt Count (150-450) K/mm3 MPV (6.2-12.0) fl Immature Gran % (Auto) (0.0-0.9) % Neut % (Auto) (47-70) % Lymph % (Auto) (19-41) % [place] % (Auto) (0-10) % Eos % (Auto) (0-5) % Baso % (Auto) (0-1) % Absolute Neuts (auto) (2.0-7.7) X10^3/uL Absolute Lymphs (auto) (0.83-4.51) X10^3/uL Nucleated RBC % (0-5) % Specimen Type VBG pH (7.32-7.42) VBG pO2 (25-40) mmHg VBG O2 Sat (Calc) (50-70) % VBG O2 Content (23-33) mmol/L VBG Base Excess (-1.0-3.5) mmol/L POC Mix VBG pCO2 Pt Tmp (41-51) mmHg O2 Delivery Device Blood Gas Notified Whom Blood Gas Notified Time Sodium 133 L (136-145) mmol/L Potassium 3.2 L (3.5-5.1) mmol/L Chloride 100 (98-107) mmol/L Carbon Dioxide 14.0 L (21.0-32.0) mmol/L Anion Gap 19 H (5-15) BUN 9 (7-18) mg/dL Creatinine 0.75 (0.55-1.02) mg/dL Estim Creat Clear Calc 90.29 ml/min Est GFR (MDRD) Af Amer 126 (>60) mL/min Est GFR (MDRD) Non-Af 104 (>60) mL/min BUN/Creatinine Ratio 12.0 (10-20) RATIO Glucose 278 H (74-106) mg/dL Hemoglobin A1c (4.2-6.3) % Serum Osmolality (275-295) mOsm/KG Calcium 8.6 (8.5-10.1) mg/dL Phosphorus (2.5-4.9) mg/dL Magnesium (1.6-2.6) mg/dL Total Bilirubin (0.20-1.00) mg/dL AST (15-37) U/L ALT (13-56) U/L Alkaline Phosphatase (45-117) U/L Total Protein (6.4-8.2) g/dL Albumin (3.2-5.0) g/dL Globulin (2.2-4.2) g/dL Albumin/Globulin Ratio (0.9-2.4) RATIO Triglycerides ( - 199) mg/dL Cholesterol (200) mg/dL LDL Cholesterol (0-130) mg/dL LDL Cholesterol Direct (0-99) mg/dL LDL Choles Direct Cmmnt VLDL Cholesterol (5-40) mg/dL HDL Cholesterol (40 - ) mg/dL Lipase (73-393) U/L TSH (0.358-3.74) uIU/mL Urine Color (Yellow) Urine Clarity (Clear) Urine pH (5.0 - 8.0) Ur Specific [place] (1.002-1.030) Urine Protein (Negative) mg/dl Urine Glucose (UA) (Normal) mg/dl Urine Ketones (Negative) mg/dl Urine Occult Blood (Negative) /ul Urine Nitrite (Negative) Urine Bilirubin (Negative) mg/dL Urine Urobilinogen (Normal) mg/dl Ur Leukocyte Esterase (Negative) /ul Urine RBC (0-5) /hpf Urine WBC (0-5) /hpf Ur Squamous Epith Cells (5-10) /hpf Urine Bacteria (None Seen) /hpf Urine Mucus (<or=2+) /hpf Urine Test Negative Acetone Level (NEG) POC Glucose 96 145 H (70-110) mg/dL 07/28/19 07/28/19 07/28/19 Range/Units 17:45 17:45 17:28 WBC (4.4-11.0) K/mm3 RBC (4.2-5.4) M/mm3 Hgb (12.0-15.0) g/dL Hct (37-47) % MCV (81-99) fL MCH (27.0-32.0) pg MCHC (32-36) g/dL RDW Std Deviation (35.1-43.9) fl RDW Coeff of Jose Roberto (11.6-14.6) % Plt Count (150-450) K/mm3 MPV (6.2-12.0) fl Immature Gran % (Auto) (0.0-0.9) % Neut % (Auto) (47-70) % Lymph % (Auto) (19-41) % [place] % (Auto) (0-10) % Eos % (Auto) (0-5) % Baso % (Auto) (0-1) % Absolute Neuts (auto) (2.0-7.7) X10^3/uL Absolute Lymphs (auto) (0.83-4.51) X10^3/uL Nucleated RBC % (0-5) % Specimen Type VBG pH (7.32-7.42) VBG pO2 (25-40) mmHg VBG O2 Sat (Calc) (50-70) % VBG O2 Content (23-33) mmol/L VBG Base Excess (-1.0-3.5) mmol/L POC Mix VBG pCO2 Pt Tmp (41-51) mmHg O2 Delivery Device Blood Gas Notified Whom Blood Gas Notified Time Sodium (136-145) mmol/L Potassium (3.5-5.1) mmol/L Chloride (98-107) mmol/L Carbon Dioxide (21.0-32.0) mmol/L Anion Gap (5-15) BUN (7-18) mg/dL Creatinine (0.55-1.02) mg/dL Estim Creat Clear Calc ml/min Est GFR (MDRD) Af Amer (>60) mL/min Est GFR (MDRD) Non-Af (>60) mL/min BUN/Creatinine Ratio (10-20) RATIO Glucose (74-106) mg/dL Hemoglobin A1c (4.2-6.3) % Serum Osmolality 289 (275-295) mOsm/KG Calcium (8.5-10.1) mg/dL Phosphorus 2.8 (2.5-4.9) mg/dL Magnesium 1.5 L (1.6-2.6) mg/dL Total Bilirubin (0.20-1.00) mg/dL AST (15-37) U/L ALT (13-56) U/L Alkaline Phosphatase (45-117) U/L Total Protein (6.4-8.2) g/dL Albumin (3.2-5.0) g/dL Globulin (2.2-4.2) g/dL Albumin/Globulin Ratio (0.9-2.4) RATIO Triglycerides ( - 199) mg/dL Cholesterol (200) mg/dL LDL Cholesterol (0-130) mg/dL LDL Cholesterol Direct (0-99) mg/dL LDL Choles Direct Cmmnt VLDL Cholesterol (5-40) mg/dL HDL Cholesterol (40 - ) mg/dL Lipase (73-393) U/L TSH (0.358-3.74) uIU/mL Urine Color (Yellow) Urine Clarity (Clear) Urine pH (5.0 - 8.0) Ur Specific [place] (1.002-1.030) Urine Protein (Negative) mg/dl Urine Glucose (UA) (Normal) mg/dl Urine Ketones (Negative) mg/dl Urine Occult Blood (Negative) /ul Urine Nitrite (Negative) Urine Bilirubin (Negative) mg/dL Urine Urobilinogen (Normal) mg/dl Ur Leukocyte Esterase (Negative) /ul Urine RBC (0-5) /hpf Urine WBC (0-5) /hpf Ur Squamous Epith Cells (5-10) /hpf Urine Bacteria (None Seen) /hpf Urine Mucus (<or=2+) /hpf Urine Test Negative Acetone Level (NEG) POC Glucose 289 H (70-110) mg/dL 07/28/19 07/28/19 07/28/19 Range/Units 15:54 13:53 13:53 WBC (4.4-11.0) K/mm3 RBC (4.2-5.4) M/mm3 Hgb (12.0-15.0) g/dL Hct (37-47) % MCV (81-99) fL MCH (27.0-32.0) pg MCHC (32-36) g/dL RDW Std Deviation (35.1-43.9) fl RDW Coeff of Jose Roberto (11.6-14.6) % Plt Count (150-450) K/mm3 MPV (6.2-12.0) fl Immature Gran % (Auto) (0.0-0.9) % Neut % (Auto) (47-70) % Lymph % (Auto) (19-41) % [place] % (Auto) (0-10) % Eos % (Auto) (0-5) % Baso % (Auto) (0-1) % Absolute Neuts (auto) (2.0-7.7) X10^3/uL Absolute Lymphs (auto) (0.83-4.51) X10^3/uL Nucleated RBC % (0-5) % Specimen Type MICHAEL VBG pH 7.34 (7.32-7.42) VBG pO2 70 H (25-40) mmHg VBG O2 Sat (Calc) 93 H (50-70) % VBG O2 Content 17 L (23-33) mmol/L VBG Base Excess -10 L (-1.0-3.5) mmol/L POC Mix VBG pCO2 Pt Tmp 29.3 L (41-51) mmHg O2 Delivery Device Room Air Blood Gas Notified Whom ED Blood Gas Notified Time 1552 Sodium (136-145) mmol/L Potassium (3.5-5.1) mmol/L Chloride (98-107) mmol/L Carbon Dioxide (21.0-32.0) mmol/L Anion Gap (5-15) BUN (7-18) mg/dL Creatinine (0.55-1.02) mg/dL Estim Creat Clear Calc ml/min Est GFR (MDRD) Af Amer (>60) mL/min Est GFR (MDRD) Non-Af (>60) mL/min BUN/Creatinine Ratio (10-20) RATIO Glucose (74-106) mg/dL Hemoglobin A1c (4.2-6.3) % Serum Osmolality (275-295) mOsm/KG Calcium (8.5-10.1) mg/dL Phosphorus (2.5-4.9) mg/dL Magnesium (1.6-2.6) mg/dL Total Bilirubin (0.20-1.00) mg/dL AST (15-37) U/L ALT (13-56) U/L Alkaline Phosphatase (45-117) U/L Total Protein (6.4-8.2) g/dL Albumin (3.2-5.0) g/dL Globulin (2.2-4.2) g/dL Albumin/Globulin Ratio (0.9-2.4) RATIO Triglycerides ( - 199) mg/dL Cholesterol (200) mg/dL LDL Cholesterol (0-130) mg/dL LDL Cholesterol Direct (0-99) mg/dL LDL Choles Direct Cmmnt VLDL Cholesterol (5-40) mg/dL HDL Cholesterol (40 - ) mg/dL Lipase (73-393) U/L TSH (0.358-3.74) uIU/mL Urine Color Yellow (Yellow) Urine Clarity Sl. Cloudy (Clear) Urine pH 5.0 (5.0 - 8.0) Ur Specific [place] 1.020 (1.002-1.030) Urine Protein 100 H (Negative) mg/dl Urine Glucose (UA) 1000 H (Normal) mg/dl Urine Ketones 150 H (Negative) mg/dl Urine Occult Blood Negative (Negative) /ul Urine Nitrite Negative (Negative) Urine Bilirubin 1 H (Negative) mg/dL Urine Urobilinogen 1 H (Normal) mg/dl Ur Leukocyte Esterase 100 H (Negative) /ul Urine RBC 0 SEEN (0-5) /hpf Urine WBC 10-25 SEEN (0-5) /hpf Ur Squamous Epith Cells 0-5 SEEN (5-10) /hpf Urine Bacteria 1+ (None Seen) /hpf Urine Mucus 1+ (<or=2+) /hpf Urine Test Negative Negative Acetone Level (NEG) POC Glucose (70-110) mg/dL 07/28/19 07/28/19 07/28/19 Range/Units 13:53 13:53 13:53 WBC (4.4-11.0) K/mm3 RBC (4.2-5.4) M/mm3 Hgb (12.0-15.0) g/dL Hct (37-47) % MCV (81-99) fL MCH (27.0-32.0) pg MCHC (32-36) g/dL RDW Std Deviation (35.1-43.9) fl RDW Coeff of Jose Roberto (11.6-14.6) % Plt Count (150-450) K/mm3 MPV (6.2-12.0) fl Immature Gran % (Auto) (0.0-0.9) % Neut % (Auto) (47-70) % Lymph % (Auto) (19-41) % [place] % (Auto) (0-10) % Eos % (Auto) (0-5) % Baso % (Auto) (0-1) % Absolute Neuts (auto) (2.0-7.7) X10^3/uL Absolute Lymphs (auto) (0.83-4.51) X10^3/uL Nucleated RBC % (0-5) % Specimen Type VBG pH (7.32-7.42) VBG pO2 (25-40) mmHg VBG O2 Sat (Calc) (50-70) % VBG O2 Content (23-33) mmol/L VBG Base Excess (-1.0-3.5) mmol/L POC Mix VBG pCO2 Pt Tmp (41-51) mmHg O2 Delivery Device Blood Gas Notified Whom Blood Gas Notified Time Sodium 132 L (136-145) mmol/L Potassium 3.9 (3.5-5.1) mmol/L Chloride 97 L (98-107) mmol/L Carbon Dioxide 21.0 (21.0-32.0) mmol/L Anion Gap 14 (5-15) BUN 11 (7-18) mg/dL Creatinine 0.77 (0.55-1.02) mg/dL Estim Creat Clear Calc 87.94 ml/min Est GFR (MDRD) Af Amer 123 (>60) mL/min Est GFR (MDRD) Non-Af 102 (>60) mL/min BUN/Creatinine Ratio 14.4 (10-20) RATIO Glucose 119 H (74-106) mg/dL Hemoglobin A1c (4.2-6.3) % Serum Osmolality (275-295) mOsm/KG Calcium 9.7 (8.5-10.1) mg/dL Phosphorus (2.5-4.9) mg/dL Magnesium (1.6-2.6) mg/dL Total Bilirubin (0.20-1.00) mg/dL AST (15-37) U/L ALT (13-56) U/L Alkaline Phosphatase (45-117) U/L Total Protein (6.4-8.2) g/dL Albumin (3.2-5.0) g/dL Globulin (2.2-4.2) g/dL Albumin/Globulin Ratio (0.9-2.4) RATIO Triglycerides ( - 199) mg/dL Cholesterol (200) mg/dL LDL Cholesterol (0-130) mg/dL LDL Cholesterol Direct (0-99) mg/dL LDL Choles Direct Cmmnt VLDL Cholesterol (5-40) mg/dL HDL Cholesterol (40 - ) mg/dL Lipase 37 L (73-393) U/L TSH (0.358-3.74) uIU/mL Urine Color (Yellow) Urine Clarity (Clear) Urine pH (5.0 - 8.0) Ur Specific [place] (1.002-1.030) Urine Protein (Negative) mg/dl Urine Glucose (UA) (Normal) mg/dl Urine Ketones (Negative) mg/dl Urine Occult Blood (Negative) /ul Urine Nitrite (Negative) Urine Bilirubin (Negative) mg/dL Urine Urobilinogen (Normal) mg/dl Ur Leukocyte Esterase (Negative) /ul Urine RBC (0-5) /hpf Urine WBC (0-5) /hpf Ur Squamous Epith Cells (5-10) /hpf Urine Bacteria (None Seen) /hpf Urine Mucus (<or=2+) /hpf Urine Test Negative Acetone Level SMALL H (NEG) POC Glucose 125 H (70-110) mg/dL 07/28/19 Range/Units 13:53 WBC 13.1 H (4.4-11.0) K/mm3 RBC 5.01 (4.2-5.4) M/mm3 Hgb 14.2 (12.0-15.0) g/dL Hct 43.4 (37-47) % MCV 86.6 (81-99) fL MCH 28.3 (27.0-32.0) pg MCHC 32.7 (32-36) g/dL RDW Std Deviation 38.5 (35.1-43.9) fl RDW Coeff of Jose Roberto 12.3 (11.6-14.6) % Plt Count 520 H (150-450) K/mm3 MPV 9.1 (6.2-12.0) fl Immature Gran % (Auto) 0.600 (0.0-0.9) % Neut % (Auto) 74.0 H (47-70) % Lymph % (Auto) 19.0 (19-41) % [place] % (Auto) 5.4 (0-10) % Eos % (Auto) 0.2 (0-5) % Baso % (Auto) 0.8 (0-1) % Absolute Neuts (auto) 9.7 H (2.0-7.7) X10^3/uL Absolute Lymphs (auto) 2.49 (0.83-4.51) X10^3/uL Nucleated RBC % 0 (0-5) % Specimen Type VBG pH (7.32-7.42) VBG pO2 (25-40) mmHg VBG O2 Sat (Calc) (50-70) % VBG O2 Content (23-33) mmol/L VBG Base Excess (-1.0-3.5) mmol/L POC Mix VBG pCO2 Pt Tmp (41-51) mmHg O2 Delivery Device Blood Gas Notified Whom Blood Gas Notified Time Sodium (136-145) mmol/L Potassium (3.5-5.1) mmol/L Chloride (98-107) mmol/L Carbon Dioxide (21.0-32.0) mmol/L Anion Gap (5-15) BUN (7-18) mg/dL Creatinine (0.55-1.02) mg/dL Estim Creat Clear Calc ml/min Est GFR (MDRD) Af Amer (>60) mL/min Est GFR (MDRD) Non-Af (>60) mL/min BUN/Creatinine Ratio (10-20) RATIO Glucose (74-106) mg/dL Hemoglobin A1c (4.2-6.3) % Serum Osmolality (275-295) mOsm/KG Calcium (8.5-10.1) mg/dL Phosphorus (2.5-4.9) mg/dL Magnesium (1.6-2.6) mg/dL Total Bilirubin (0.20-1.00) mg/dL AST (15-37) U/L ALT (13-56) U/L Alkaline Phosphatase (45-117) U/L Total Protein (6.4-8.2) g/dL Albumin (3.2-5.0) g/dL Globulin (2.2-4.2) g/dL Albumin/Globulin Ratio (0.9-2.4) RATIO Triglycerides ( - 199) mg/dL Cholesterol (200) mg/dL LDL Cholesterol (0-130) mg/dL LDL Cholesterol Direct (0-99) mg/dL LDL Choles Direct Cmmnt VLDL Cholesterol (5-40) mg/dL HDL Cholesterol (40 - ) mg/dL Lipase (73-393) U/L TSH (0.358-3.74) uIU/mL Urine Color (Yellow) Urine Clarity (Clear) Urine pH (5.0 - 8.0) Ur Specific [place] (1.002-1.030) Urine Protein (Negative) mg/dl Urine Glucose (UA) (Normal) mg/dl Urine Ketones (Negative) mg/dl Urine Occult Blood (Negative) /ul Urine Nitrite (Negative) Urine Bilirubin (Negative) mg/dL Urine Urobilinogen (Normal) mg/dl Ur Leukocyte Esterase (Negative) /ul Urine RBC (0-5) /hpf Urine WBC (0-5) /hpf Ur Squamous Epith Cells (5-10) /hpf Urine Bacteria (None Seen) /hpf Urine Mucus (<or=2+) /hpf Urine Test Negative Acetone Level (NEG) POC Glucose (70-110) mg/dL Microbiology 07/28/19 13:53 Urine, Clean Catch Urine Culture - Final Mixed Gram Positive Organisms none Operations: None Procedures: None Summary of Care Provided: The patient is a 19 year old F with a past medical history of obesity, hypothyroidism and diabetes mellitus type 1 since 3 years of age who presented to the emergency department at [facility] on 07/28/19 complaining of nausea, vomiting, malaise, fatigue and mild dyspnea. Vital signs of presentation to the emergency department were temperature 99.3, heart rate 146, blood pressure 139/96, respiratory rate 18 and she was 98% saturated on room air. CBC was remarkable for an elevated white blood cell count at 13.1 with a left shift. Hemoglobin was 14.2 and the platelets were increased at 520,000. BMP showed a low sodium at 132 and a serum bicarb of 21. The anion gap was initially 14. The initial blood glucose was 119. Urine test was negative. Lipase was 37. Magnesium was low at 1.5. Urine ketones were high. Serum acetone was increased. A clean-catch urine showed 10-25 WBCs per high-power field with 0-5 squamous epithelial cells. She was admitted to the intensive care unit and a BMP was repeated in 4 hours. The potassium was low at 3.2 and the serum bicarb was now 14 with an elevated anion gap at 19. Blood sugar was 278. She was started on an insulin infusion and Q 4 H BMP's were checked. ELYTES were supplemented. She was aggressively hydrated and was started on Rocephin 1 GM IV daily. A lipid panel was checked the following morning and the triglycerides were increased at 239. The total cholesterol was 188 with an LDL of 98 and a low HDL at 42. TSH was within normal limits at 0.9. A direct LDL was checked and was elevated at 144. Urine culture came back with mixed organisms and is likely contaminated. White blood cell came down to 7.2 and she was afebrile for the duration of her hospital admission. The insulin infusion was discontinued at approximately 5 PM on 07/29/2019 and she was started on Lantus and mealtime insulin. BMP on 07/30/2019 showed a potassium of 4.1 and a serum bicarb of 23 with an anion gap of 7. BUN was 5 and the creatinine was 0.48. The fasting blood sugar was 131 and the blood sugar at noontime was 159. She was seen and counseled by the dietitian while in the hospital. She has been skipping meals at work and when she does not eat she does not take her insulin. The importance of eating 3 meals a day was stressed and skipping insulin was discouraged. She had diabetic teaching in the hospital. I discussed her lipid panel with her and she is agreeable to starting a lipid-lowering agent. She was started on Crestor 10 mg p.o. nightly. She will need a liver panel and lipid panel in 6 weeks. She is going to follow-up with her primary care physician in 1 to 2 weeks and also has an appointment with her driver education road instructor coming up in the next 4 to 6 weeks. He was discharged with Duricef 1 g p.o. twice daily to complete 5 days of treatment for suspected urinary tract infection. She was encouraged to lose weight also to start an exercise program. 30 minutes of vigorous exercise 5-6 times a week was encouraged. She can follow up with the diabetic clinic run by the supervisor finishing's at the hospital and all she will need is a referral from Dr. Spicer. General: Alert, Oriented x3, Cooperative, good energy today HEENT: Atraumatic, PERRLA, EOMI, Normocephalic Oral: Moist Mucosa Neck: Supple, No Nodes, Trachea Midline Lungs: Clear to auscultation, not tachypneic Cardiovascular: Regular Rhythm, Normal S1, Normal S2, No murmurs, No Gallop, Tachycardic Abdomen: Bowel Sounds Present, Soft, Non Tender, Non-Distended Extremities: No clubbing, No cyanosis, No edema, Peripheral Pulses Normal Neurological: Cranial nerves II-XII grossly intact, Neuro grossly intact Psych/Mental Status: Appropriate This note was generated with [employer] dictation software. It may contain incorrect words, spelling, and punctuation that were not noted in checking the note before signing. Patient Problems: Active and Suspected Problems Hypomagnesemia (Acute) Hypokalemia (Acute) UTI (urinary tract infection) (Acute) DKA (diabetic ketoacidoses) (Acute) - Physical Exam Vital Signs Temp Pulse Resp BP Pulse Ox 98.3 F 119 H 20 H 132/76 H 100 07/30/19 08:00 07/30/19 08:00 07/30/19 08:00 07/30/19 08:00 07/30/19 08:00 Oxygen Delivery Method Room Air Weight: 220 lb 3.869 oz Body Mass Index (BMI) 39.9 Finger Stick Blood Glucose 127 Intake and Output for Last 24 Hours 07/28/19 07/29/19 07/30/19 23:59 23:59 23:59 Intake Total 3386.22 / 3386.22 5516.86 / 5516.86 1081.67 / 1081.67 Balance 3386.22 / 3386.22 5516.86 / 5516.86 1081.67 / 1081.67 Microbiology Past 72 Hours 07/28/19 13:53 Urine Culture - Final Urine, Clean Catch Mixed Gram Positive Organisms Laboratory Tests Past 24 Hrs 07/29/19 07/29/19 07/29/19 08:40 12:00 16:05 Sodium 135 L 136 Potassium 4.0 4.4 Chloride 108 H 108 H Carbon Dioxide 19.0 L 19.0 L Anion Gap 8 9 BUN 4 L 4 L Creatinine 0.74 0.57 Estim Creat Clear Calc 91.51 118.80 Est GFR (MDRD) Af Amer 127 174 Est GFR (MDRD) Non-Af 105 144 BUN/Creatinine Ratio 5.4 L 7.0 L Glucose 107 H 129 H Calcium 8.5 8.4 L Phosphorus Magnesium LDL Cholesterol Direct 144 H LDL Choles Direct Cmmnt TNP 07/29/19 07/30/19 20:25 03:25 Sodium 136 142 Potassium 4.6 4.1 Chloride 104 112 H Carbon Dioxide 21.0 23.0 Anion Gap 11 7 BUN 6 L 5 L Creatinine 0.70 0.48 L Estim Creat Clear Calc 96.74 141.08 Est GFR (MDRD) Af Amer 137 213 Est GFR (MDRD) Non-Af 113 176 BUN/Creatinine Ratio 8.6 L 10.5 Glucose 352 H 148 H Calcium 8.1 L 8.2 L Phosphorus 3.0 Magnesium 1.7 LDL Cholesterol Direct LDL Choles Direct Cmmnt POC Glucose 07/30/19 07/30/19 07/29/19 11:20 07:33 21:21 POC Glucose 159 H 131 H 373 H 07/29/19 07/29/19 07/29/19 17:03 16:01 15:30 POC Glucose 156 H 127 H 124 H 07/29/19 07/29/19 07/29/19 15:00 14:30 14:01 POC Glucose 95 84 94 07/29/19 07/29/19 13:29 12:57 POC Glucose 67 L 70 Discharge Activity: Return to Normal Activity, - - I recommend that you start an exercise program and exercise for 30 minutes 5-6 times a week. Being very active is not the same as exercise.......Treadmill, exercycle, elliptical, swimming for 30 minutes, vigorous walking for 30 minutes, running...this is exercise. It will help you efforts to lose weight, improve the cholesterol, decrease your blood sugars and help to keep your heart strong to prevent heart disease. It is JUST as improtant as controlling you blood sugars and your BP and your cholesterol. Return to work on:: 08/02/19 May resume sexual activity in: No Restrictions Call your doctor if you observe: Fever of 101 or Higher, Shortness of breath, Dizziness, Fainting spells, Swelling in the ankles, Chest pain, - - nausea/vomiting/abdminal pain/burning with urination Home Medications: Medications to take at Discharge Insulin Glargine,Hum.rec.anlog [Laisha Thomas] 12 units SQ BREAKFAST 07/28/19 Insulin Glargine,Hum.rec.anlog [Toujeo Max Solostar] 60 unit SQ QHS 07/28/19 Insulin Lispro [Humalog] 0 units SQ TIDCM 07/28/19 Levothyroxine [Synthroid] 50 mcg PO DAILY 07/28/19 Lisinopril 30 mg PO DAILY 07/28/19 Cefadroxil 1 gm PO BID #7 tab 07/30/19 Rosuvastatin Calcium [Crestor] 10 mg PO QHS #30 tab 07/30/19 Following Prescrptions Were Given to Patient: Cefadroxil 1 gm PO BID #7 tab Transmission Status: Pending to [facility] [facility] Rosuvastatin Calcium [Crestor] 10 mg PO QHS #30 tab Transmission Status: Pending to [facility] Primary Care Physician: Petros Spicer MD [Primary Care Provider] - Please follow up with your Primary Care Physician in: in 1-2 weeks Patient Instructions: MyPlate Worksheet: 1,600 Calories, MyPlate Worksheet: 1,800 Calories Disposition: Home Minutes spent on discharge:: 35 Patient Condition:: Good Medical Necessity - Tobacco Use Smoking Status: Never smoker Tobacco Use: Non-smoker Meaningful Use Info Meaningful Use Diagnoses (Choose all that apply): None applicable Code Visit Inpatient E&M: 13520 Disch Hosp
[2019-07-30] MEDS: Cefadroxil 500 MG CAPSULE 1000 MG PO (13:49)
== END 2019-07-30 14:00 | disposition home or self-care (01) | DRG 638 ==
LOC: ED 16:05 → ICU 07-29 06:11
PROVIDERS: Admitting Provider Family Medicine; Emergency Provider Emergency Medicine; Family Provider Family Medicine; PCP Family Medicine; Visit Provider Internal Medicine
DX: E10.10 Type 1 diabetes mellitus with ketoacidosis without coma (principal); N39.0 Urinary tract infection, site not specified; B96.89 Other specified bacterial agents as the cause of diseases classified elsewhere; E83.42 Hypomagnesemia; E87.6 Hypokalemia; E66.01 Morbid (severe) obesity due to excess calories; E78.5 Hyperlipidemia, unspecified; E03.9 Hypothyroidism, unspecified; K21.9 Gastro-esophageal reflux disease without esophagitis; Z68.54 Body mass index [BMI] pediatric, 95th percentile for age to less than 120% of the 95th percentile for age; Z79.4 Long term (current) use of insulin; Z79.890 Hormone replacement therapy; Z79.899 Other long term (current) drug therapy
CPT/HCPCS: 71046; 80048; 80053; 80061; 81001; 81025; 82009; 82803; 82962; 83036; 83690; 83721; 83735; 83930; 84100; 84443; 85025; 87086; 87088; 97802; 99284; J7030; A4216; J2405; J7799

== ENCOUNTER 2019-11-04 18:49 | Observation (INO) | payer OTHER, SELFPAY ==
[2019-08-17 15:53] VITALS: BMI 41.1
[2019-11-04 18:50] VITALS: BP 148/93; PULSE 139; RESP 16; TEMP 36.8; O2SAT 99; BMI 41.1
[2019-11-04 19:05] LABS: Bedside Glucose 357 mg/dL (70-110)
--- NOTE | 2019-11-04 20:00 | EKG12_ITS ---
Test Reason : DYSRHYTHMIA Blood Pressure : / mmHG Vent. Rate : 118 BPM Atrial Rate : 118 BPM P-R Int : 136 ms QRS Dur : 086 ms QT Int : 326 ms P-R-T Axes : 051 069 021 degrees QTc Int : 456 ms Sinus tachycardia Nonspecific T wave abnormality Abnormal ECG Confirmed by TIMOTHY RODGERS, RENATA ([id number]), electronic news gathering editor DARREN AHUMADA ([id number]) on 11/08/2019 12:20:01 PM Referred By: DC Confirmed By:RENATA AGUIRRE MD
[2019-11-04 20:11] VITALS: BP 141/71; PULSE 118; RESP 18; TEMP 36.6; O2SAT 100
[2019-11-04] MEDS: Ondansetron 4 MG/2 ML Vial IV (20:12)
[2019-11-04] MEDS: 0.9% Normal Saline 1,000 ML 999 ML IV ×2 (20:12→21:15)
[2019-11-04 20:16] LABS: Absolute Lymphocyte Count 1.41 X10^3/uL (0.83-4.51); Basophil% 0.6 % (0-1); Eosinophil# 0.01 X10^3/uL; Eosinophils% 0.1 % (0-5); Hematocrit 45.6 % (37-47); Hemoglobin 14.8 g/dL (12.0-15.0); Lymphocyte # 1.41 X10^3/ul (4.0); Lymphocyte % 8.7 % (19-41); Mean Corp Hgb Conc 32.5 g/dL (32-36); Mean Corpuscular Hgb 27.1 pg (27.0-32.0); Mean Corpuscular Volume 83.4 fL (81-99); Mean Platelet Vol. 9.4 fl (6.2-12.0); Monocyte# 0.55 X10^3/uL; Monocyte% 3.4 % (0-10); NRBC Flagged by Analyzer 0 % (0-5); Neutrophil # 13.95 X10^3/uL (2.7-7.7); Neutrophil % 86.3 % (47-70); Platelet Count 535 K/mm3 (150-450); RBC Distribution Width CV 12.1 % (11.6-14.6); RBC Distribution Width SD 36.7 fl (35.1-43.9); Red Blood Count 5.47 M/mm3 (4.2-5.4); White Blood Count 16.2 K/mm3 (4.4-11.0)
[2019-11-04 20:26] LABS: Anion Gap 16 (5-15); BUN 11 mg/dL (7-18); BUN/Creat Ratio 11.9 RATIO (10-20); Calcium,Total 9.8 mg/dL (8.5-10.1); Chloride 100 mmol/L (98-107); Creatinine, Serum 0.93 mg/dL (0.55-1.02); EST Glomerular Filtration Rate 82 mL/min (>60); Est Glom Filt Rate - Afr Amer 99 mL/min (>60); Estimated Creatinine Clearance 72.81 ml/min; Glucose 337 mg/dL (74-106); Potassium 4.5 mmol/L (3.5-5.1); Sodium Level 133 mmol/L (136-145)
[2019-11-04 20:35] LABS: Bedside Glucose 338 mg/dL (70-110)
[2019-11-04 21:04] LABS: Internal QC Validated? YES +Cl - CLEAR BKGD; Pregnancy, Serum, hCG Quali. NEGATIVE Negative
[2019-11-04 21:52] VITALS: BP 130/62; PULSE 116; RESP 18; TEMP 37.2; O2SAT 97
[2019-11-04 22:00] LABS: Bedside Glucose 279 mg/dL (70-110)
[2019-11-04 22:49] VITALS: BP 136/67; PULSE 120; RESP 16; O2SAT 98
--- NOTE | 2019-11-04 22:49 | ED.VISSUMM ---
- ER Visit Summary Date of Service: 11/04/19 Chief Complaint: Nausea and vomiting History of Present Illness: The patient is a 19 F with nausea and vomiting today. She had ketones in her urine. Sugars this morning were in the 200s and then they have increased to the 300s. She is compliant with her Humalog and Toujeo. Denies fevers or recent illness. She does have a history of DKA. Physical Examination: Tachycardic but otherwise vitals unremarkable. Afebrile. Patient appears uncomfortable but not toxic or in distress. Heart is tachycardic but regular. Lungs clear. Abdomen soft. Skin unremarkable. Test Results: White count 16.2, platelets 535, sodium 133, CO2 17, anion gap 16, glucose 337. Ketones small, test negative. Emergency Department Course and Treatment: Patient treated with fluids and Zofran. Insulin drip was started for DKA. Hospitalist was contacted for admission for further care. After discussion with the hospitalist we will add a urinalysis and chest x-ray. Results are pending. Treatment Plan: As above Disposition: Admission Impression: 1. DKA This note was generated with [employer] dictation software. It may contain incorrect words, spelling, and punctuation that were not noted in review of the chart prior to signing ED Disposition - Plan for ED Patient: Referrals: Petros Spicer MD [Primary Care Provider] -
--- NOTE | 2019-11-04 22:52 | HP.PCM_ITS ---
Problem List (1) DKA (diabetic ketoacidoses) Status: Acute Qualifiers: Diabetes mellitus type: type 1 Diabetes mellitus complication detail: without coma Qualified Code(s): E10.10 - Type 1 diabetes mellitus with ketoacidosis without coma (2) Hypothyroidism Status: Chronic Qualifiers: Hypothyroidism type: unspecified Qualified Code(s): E03.9 - Hypothyroidism, unspecified (3) Anxiety and depression Status: Chronic (4) Obesity, Class III, BMI 40-49.9 (morbid obesity) Status: Chronic (5) Type 1 diabetes mellitus Status: Chronic Qualifiers: Diabetes mellitus complication status: with other specified complication Qualified Code(s): E10.69 - Type 1 diabetes mellitus with other specified complication (6) Dyslipidemia (high LDL; low HDL) Status: Chronic History of Present Illness Date of Admission: 11/04/19 Chief Complaint: N/V, malaise, dizziness The patient is a 19 y/o F w/ PMHx: Hypothyroidism, Diabetes mellitus type I, Morbid Obesity, HTN, HLD, Anxiety and Depression who presents to the [facility] ED on 11/04/19 with history of being compliant with her insulin therapy; however, notes onset nausea and emesis starting early this AM, intractable and ongoing, noted to have checked her urine with noted ketones at that time with no recent URI symptoms, abdominal pain preceding N/V, nor any bowel changes but clinically not improving prompting her to eventually present to the ED. only recent change in patient's health was a recent tattoo, new obtained the day prior from per her report of reputable place where she is gotten previous tattoos with some mild irritability to the region but normal in appearance for having had a recent tattoo the day prior with no fever, chills. Work-up in the ED included T 98.2, heart rate initially 139, BP 148/93, respiratory rate 16, 99% on room air, CBC with WC 16.2, hemoglobin 14.8, platelet 535 with left shift, BMP with sodium 133, carbon oxide 17, anion gap mildly elevated 16, BUN/creatinine 11/0.93, glucose 337, negative test, acetone small. In the ED patient initiated on insulin drip, Zofran and normal saline administered. Past Medical History Past Medical History (Chronic Problems): Chronic Problems (Last Updated 08/17/19 @ 16:04 by RIO Richmond) Hypothyroidism (Chronic) Anxiety and depression (Chronic) Obesity, Class III, BMI 40-49.9 (morbid obesity) (Chronic) Type 1 diabetes mellitus (Chronic) Dyslipidemia (high LDL; low HDL) (Chronic) Medical History: Medical History (Last Updated 08/17/19 @ 16:04 by RIO Richmond) DKA (diabetic ketoacidoses) E11.10 Encephalitis G04.90 type 1.5 DM Allergies No Known Allergies Allergy (Verified 11/04/19 18:55) Home Medications: Ambulatory Orders Medication Instructions Recorded Insulin Glargine,Hum.rec.anlog 12 units SQ BREAKFAST 07/28/19 [Toujeo Max Solostar] Insulin Glargine,Hum.rec.anlog 60 unit SQ QHS 07/28/19 [Toujeo Max Solostar] Insulin Lispro [Humalog] 0 units SQ TIDCM 07/28/19 Levothyroxine [Synthroid] 50 mcg PO DAILY 07/28/19 Lisinopril 30 mg PO DAILY 07/28/19 Rosuvastatin Calcium [Crestor] 10 mg PO QHS #30 tab 07/30/19 cefadroxil 500 mg capsule 500 mg PO BID #20 cap 08/17/19 Surgical History: Surgical History (Last Updated 08/17/19 @ 16:01 by RIO Richmond) History of tonsillectomy Z90.89 Surgical History: - - Tonsillectomy, inner leg cyst removal. 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 Smoking Status: Former smoker Tobacco Use: Non-smoker Alcohol: None Drugs: None - *Family History Maternal Family History: Family History (Last Updated 08/17/19 @ 16:02 by RIO Richmond) Other CVA (cerebral vascular accident) Diabetes Heart disease Hypertension History Items: - - Patient with no market paternal family history including heart disease, diabetes or cancer. Patient does note that her mother's mother did have a history of cancer. Paternal Family History: Family History (Last Updated 08/17/19 @ 16:02 by RIO Richmond) Other CVA (cerebral vascular accident) Diabetes Heart disease Hypertension History Items: Diabetes, High Cholesterol, Heart Disease, Hypertension Review of Systems Constitutional: Reports: Anorexia, Malaise, Weakness, Fatigue. Denies: Chills, Fever, Weight Change HEENT: Denies: Head Aches, Sinus Congestion, Sinus Drainage Cardiovascular: Denies: Chest Pain, Palpitations Respiratory: Denies: Cough, Shortness of breath at rest, Sputum production Gastrointestinal: Reports: Nausea, Vomiting. Denies: Abdominal Pain, Constipation, Diarrhea Genitourinary: Denies: Dysuria Musculoskeletal: Reports: Joint Pain, Muscle pain. Denies: Joint Tenderness Skin: Denies: Rash, Wounds Neurological: Denies: Numbness, Tingling, Focal weakness Psychiatric: Reports: Anxiety, Depression. Denies: Homicidal Ideations, Suicidal Ideations Hematologic/ Lymphatic: Denies: Easy Bruising, Easy Bleeding VTE Information - Inpt Only VTE Present on Admission: No VTE Mechan Device Prophylaxis: SCD's VTE Pharm Prophylaxis ordered?: Yes Subjective: Seated upright in ED bed, fatigued appearance, flushed face, no acute distress. Objective: Physical Examination: General: awake, alert, oriented x 3 and cooperative, seated upright in the ED bed, fatigued, flushed face. Skin: normal color aside flushed face and new tattoo with mild irritation, left forearm, normal appearance for recent fresh tattoo, normal turgor, no icterus, no cyanosis. HEENT: AT/NC, EOMI, PERRLA, dry MM, flushed cheeks, no carotid bruits or JVD noted. Lungs: CTA bilaterally, moderate effort, moderate decrease BL bases, no rales, ronchi or wheezing. Heart: Tachycardic with regular rhythm; no gallop, rub audible. Abdomen: soft, obese, mild tenderness diffusely, notes more so secondary to recent emesis and sore muscles, mildly hypoactive bowel sounds, difficult to assess HSM secondary to habitus. Extremities: no cyanosis, clubbing, or edema. Neurological: patient awake, alert, oriented x 3; cognitive function intact; pupils equally reactive to light and accomodation; cranial nerves II-XII grossly normal, moving all 4 extremities, no focal deficits, strength moderately to severely global decrease secondary to acute presentation. Psychiatric: affect appears fatigued, no acute evidence of depressive or anxiety feelings. - Physical Exam Vitals/I&O's: Vital Signs Temp Pulse Resp BP Pulse Ox 98.9 F 120 H 16 136/67 H 98 11/04/19 21:52 11/04/19 22:49 11/04/19 22:49 11/04/19 22:49 11/04/19 22:49 Oxygen Delivery Method Room Air Weight: 217 lb 9.54 oz Body Mass Index (BMI) 41.1 Finger Stick Blood Glucose 209 Intake and Output for Last 24 Hours 11/02/19 11/03/19 11/04/19 23:59 23:59 23:59 Intake Total Balance Laboratory Results 11/04/19 18:59: POC Glucose 357 H 11/04/19 19:52: WBC 16.2 H, RBC 5.47 H, Hgb 14.8, Hct 45.6, MCV 83.4, MCH 27.1, MCHC 32.5, RDW Std Deviation 36.7, RDW Coeff of Jose Roberto 12.1, Plt Count 535 H, MPV 9.4, Immature Gran % (Auto) 0.900, Neut % (Auto) 86.3 H, Lymph % (Auto) 8.7 L, Williamson % (Auto) 3.4, Eos % (Auto) 0.1, Baso % (Auto) 0.6, Absolute Neuts (auto) 14.0 H, Absolute Lymphs (auto) 1.41, Nucleated RBC % 0 11/04/19 19:52: Sodium 133 L, Potassium 4.5, Chloride 100, Carbon Dioxide 17.0 L , Anion Gap 16 H, BUN 11, Creatinine 0.93, Estim Creat Clear Calc 72.81, Est GFR (MDRD) Af Amer 99, Est GFR (MDRD) Non-Af 82, BUN/Creatinine Ratio 11.9, Glucose 337 H, Calcium 9.8 11/04/19 19:52: Acetone Level SMALL H 11/04/19 19:52: Serum , Qual NEGATIVE 11/04/19 20:28: POC Glucose 338 H 11/04/19 21:50: POC Glucose 279 H Current Medications Insulin Human Lispro 100 unit/ (Sodium Chloride) 100 mls @ 9.87 mls/hr IV .Q10H8M [facility]; Protocol Last Titration: 11/04/19 22:47 Dose: 0.08 units/kg/hr, 7.9 mls/hr Documented by: Assessment/Plan All Active Problems (Last Updated 08/17/19 @ 16:04 by Ayaka Tsai NP-C) Sinusitis (Acute) Otitis media, right (Acute) Ruptured ear drum (Acute) Hypomagnesemia (Acute) Hypokalemia (Acute) UTI (urinary tract infection) (Acute) DKA (diabetic ketoacidoses) (Acute) The patient is a 19 y/o F w/ PMHx: Hypothyroidism, Diabetes mellitus type I, Morbid Obesity, HTN, HLD, Anxiety and Depression who presents to the [facility] ED on 11/04/19 with history of being compliant with her insulin therapy; however, notes onset nausea and emesis starting early this AM, checked her urine with noted ketones at that time with no recent URI symptoms, abdominal pain, bowel changes but clinically not improving prompting her to eventually present to the ED. 1. DKA w/ Diabetes mellitus type I: Patient started on an insulin drip in the ED. Given unclear etiology for onset and patient reported medicine compliance requested ED to obtain UA, CXR and will also add hepatic profile as well as lipase level. Will admit to ICU, continue on insulin drip, check serial K+, glucose w/ IVF changes pending these levels, serial chemistry, obtain mag, phos w/ repletion as needed, transition to home SC regimen when gap closed w/ overlap on drip, nutrition consultation. Encouraged diet and insulin regimen compliance. HgbA1c requested. 2. Recent left forearm tattoo: Does not appear acutely infected, mildly irritated but recently obtained the day prior, encouraged her to continue care as per their instructions, notes that it is a reputable place, potentially may be associated with acute presentation #1, if any onset worsening appearance with erythema would initiate antibiotic therapy for cellulitis. 3. Hypertension: Continue home regimen including lisinopril, PRN hydralazine. 4. Hyperlipidemia: Continue home statin regimen. 5. Hypothyroidism: Continue home synthroid regimen. 6. Morbid Obesity: Weight loss and lifestyle changes encouraged, nutrition consulted. 7. Anxiety and depression: Not on regimen, encourage continued outpatient follow-up. 8. DVT prophylaxis: SCDs, Lovenox. Code Visit Inpatient E&M: 11203 Init Hosp L3
[2019-11-04 22:55] LABS: Bedside Glucose 209 mg/dL (70-110)
--- NOTE | 2019-11-04 23:20 | RAD_ITS ---
STUDY: X-RAY CHEST REASON FOR EXAM: Female, 19 years old. N/V, DIZZINESS, AND WEAKNESS. PT IS A TYPE 1 DIABETIC. TECHNIQUE: Single frontal view of the chest. COMPARISON: July 28, 2019 FINDINGS: The lungs are clear and expanded. There is no demonstrated pleural abnormality. Normal size heart. Normal mediastinum and wojciech. Normal visualized pulmonary arteries. Normal visualized aortic arch and descending thoracic aorta. Mild dextroconvex scoliosis. Normal visualized ribs, clavicles, and shoulders. There is no demonstrated abnormality of the visualized soft tissue structures of the upper abdomen. RAD/Chest 1 View (Portable) IMPRESSION: Normal x-ray examination of the chest. Electronically Signed: Cody Daugherty MD at 23:41 EST , Service support ,
[2019-11-04] MEDS: 0.9% Normal Saline 1,000 ML 1000 ML IV (23:24)
[2019-11-04 23:32] VITALS: BP 133/64; PULSE 124; RESP 16; O2SAT 98
[2019-11-04 23:42] LABS: Bacteria 0 SEEN /hpf (None Seen); Mucous, Urine 0 SEEN /hpf (<or=2+); Red Blood Cells-Urine 0 SEEN /hpf (0-5)
[2019-11-04 23:56] VITALS: BMI 42.7
[2019-11-04 23:57] VITALS: PULSE 128
[2019-11-04 23:57] LABS: Color, Urine Yellow (Yellow); Glucose, Dipstick 1000 mg/dl (Normal); Leukocyte Esterase-Dipstick Negative /ul (Negative); Nitrite-Dipstick Negative (Negative); Occult Blood-Urine Negative /ul (Negative); Protein-Dipstick 30 mg/dl (Negative); Urine Bilirubin Dipstick Negative (Negative); Urine Clarity Clear (Clear); Urine Urobilinogen Normal (Normal)
[2019-11-04 23:58] LABS: Ketone-Dipstick 150 mg/dl (Negative)
[2019-11-05] VITALS (16 sets, daily range): BP systolic 115–162; BP diastolic 40–79; PULSE 109–130; RESP 14–22; TEMP 36.8–37; O2SAT 97–100
[2019-11-05 00:06] LABS: Bedside Glucose 128 mg/dL (70-110)
[2019-11-05] MEDS: 0.9% Saline Lock 10 ML Syringe IV (00:14)
[2019-11-05 00:18] LABS: Squamous Epithelial Cells - UA 0-5 SEEN /hpf (5-10); White Blood Cells 0-5 SEEN /hpf (0-5)
[2019-11-05 00:31] LABS: Anion Gap 9 (5-15); BUN 8 mg/dL (7-18); BUN/Creat Ratio 13.2 RATIO (10-20); Calcium,Total 8.6 mg/dL (8.5-10.1); Chloride 112 mmol/L (98-107); EST Glomerular Filtration Rate 133 mL/min (>60); Est Glom Filt Rate - Afr Amer 161 mL/min (>60); Estimated Creatinine Clearance 112.86 ml/min; Glucose 118 mg/dL (74-106); Sodium Level 139 mmol/L (136-145)
[2019-11-05 00:36] LABS: AST(SGOT) 6 U/L (15-37); Alanine Aminotransfer ALT/SGPT 15 U/L (13-56); Albumin, Serum 2.9 g/dL (3.2-5.0); Alkaline Phosphatase 139 U/L (45-117); Bilirubin, Direct 0.07 mg/dL (0.00-0.30); Globulin 4.7 g/dL (2.2-4.2); Lipase 35 U/L (73-393); Magnesium 1.8 mg/dL (1.6-2.6); Phosphorus 2.6 mg/dL (2.5-4.9); Protein, Total 7.6 g/dL (6.4-8.2)
[2019-11-05 00:41] LABS: Hemoglobin A1c 9.6 % (4.2-6.3)
[2019-11-05 01:01] LABS: Bedside Glucose 80 mg/dL (70-110)
[2019-11-05 04:24] LABS: Bedside Glucose 142 mg/dL (70-110)
[2019-11-05 04:24] LABS: Bedside Glucose 114 mg/dL (70-110)
[2019-11-05 04:24] LABS: Bedside Glucose 98 mg/dL (70-110)
[2019-11-05 04:31] LABS: White Blood Count 13.8 K/mm3 (4.4-11.0)
[2019-11-05 04:32] LABS: Hematocrit 36.6 % (37-47); Hemoglobin 12.1 g/dL (12.0-15.0); Lymphocyte % 21.4 % (19-41); Mean Corp Hgb Conc 33.1 g/dL (32-36); Mean Corpuscular Hgb 27.8 pg (27.0-32.0); Mean Corpuscular Volume 83.9 fL (81-99); Mean Platelet Vol. 9.2 fl (6.2-12.0); Neutrophil % 70.1 % (47-70); POSITIVE COUNT NO; POSITIVE DIFFERENTIAL NO; POSITIVE MORPHOLOGY NO; Platelet Count 410 K/mm3 (150-450); RBC Distribution Width CV 12.1 % (11.6-14.6); RBC Distribution Width SD 37.1 fl (35.1-43.9); Red Blood Count 4.36 M/mm3 (4.2-5.4)
[2019-11-05 04:33] LABS: Absolute Neutrophil Count 9.7 X10^3/uL (2.0-7.7); Basophil# 0.07 X10^3/uL; Basophil% 0.5 % (0-1); Eosinophil# 0.07 X10^3/uL; Eosinophils% 0.5 % (0-5); Lymphocyte # 2.94 X10^3/ul (4.0); Monocyte# 0.93 X10^3/uL; Monocyte% 6.8 % (0-10); Neutrophil # 9.65 X10^3/uL (2.7-7.7)
[2019-11-05 04:48] LABS: Anion Gap 8 (5-15); BUN 7 mg/dL (7-18); BUN/Creat Ratio 13.8 RATIO (10-20); Calcium,Total 8.3 mg/dL (8.5-10.1); Chloride 110 mmol/L (98-107); Creatinine, Serum 0.51 mg/dL (0.55-1.02); EST Glomerular Filtration Rate 163 mL/min (>60); Est Glom Filt Rate - Afr Amer 198 mL/min (>60); Estimated Creatinine Clearance 132.78 ml/min; Glucose 119 mg/dL (74-106); Potassium 3.8 mmol/L (3.5-5.1); Sodium Level 137 mmol/L (136-145)
[2019-11-05 05:06] LABS: Bedside Glucose 103 mg/dL (70-110)
[2019-11-05] MEDS: Levothyroxine 50 MCG Tablet PO (05:08)
[2019-11-05 06:25] LABS: Bedside Glucose 90 mg/dL (70-110)
--- NOTE | 2019-11-05 07:35 | PCM.PN.HOSP ---
Reason for Visit: Follow-up diabetic ketoacidosis Subjective: Patient is a 19-year-old lady with history of diabetes mellitus type 1 presented with nausea and vomiting and assessment of DKA made admitted to the intensive care unit for subsequent management Objective: GENERAL: cooperative HEENT: Atraumatic; EYES; Anicteric, Normal Conjunctiva NECK; supple, normal thyroid, RESPIRATORY: Diminished to auscultation CARDIOVASCULAR: Regular S1 S2, GI: soft, normoactive bowel sounds, : No Renal angle tenderness; EXTREMITIES: No edema, no clubbing, MUSCULOSKELETAL: no muscle waisting NEURO: Awake; no lateralizing signs. SKIN: Fresh tattoo on the PSYCH; Flat affect Vitals/I&O's: Vital Signs Temp Pulse Resp BP Pulse Ox 98.4 F 110 H 15 129/66 H 98 11/05/19 06:00 11/05/19 06:00 11/05/19 06:00 11/05/19 06:00 11/05/19 06:00 Oxygen Delivery Method Room Air Weight: 102.6 kg Body Mass Index (BMI) 42.7 Finger Stick Blood Glucose 90 Intake and Output for Last 24 Hours 11/03/19 11/04/19 11/05/19 23:59 23:59 23:59 Intake Total 181.52 / 181.52 Output Total 0 / 0 Balance 181.52 / 181.52 Laboratory Results 11/04/19 18:59: POC Glucose 357 H 11/04/19 19:52: WBC 16.2 H, RBC 5.47 H, Hgb 14.8, Hct 45.6, MCV 83.4, MCH 27.1, MCHC 32.5, RDW Std Deviation 36.7, RDW Coeff of Jose Roberto 12.1, Plt Count 535 H, MPV 9.4, Immature Gran % (Auto) 0.900, Neut % (Auto) 86.3 H, Lymph % (Auto) 8.7 L, Wilkin % (Auto) 3.4, Eos % (Auto) 0.1, Baso % (Auto) 0.6, Absolute Neuts (auto) 14.0 H, Absolute Lymphs (auto) 1.41, Nucleated RBC % 0 11/04/19 19:52: Sodium 133 L, Potassium 4.5, Chloride 100, Carbon Dioxide 17.0 L, Anion Gap 16 H, BUN 11, Creatinine 0.93, Estim Creat Clear Calc 72.81, Est GFR (MDRD) Af Amer 99, Est GFR (MDRD) Non-Af 82, BUN/Creatinine Ratio 11.9, Glucose 337 H, Calcium 9.8 11/04/19 19:52: Acetone Level SMALL H 11/04/19 19:52: Serum , Qual NEGATIVE 11/04/19 20:28: POC Glucose 338 H 11/04/19 21:50: POC Glucose 279 H 11/04/19 22:46: POC Glucose 209 H 11/04/19 23:37: Urine Color Yellow, Urine Clarity Clear, Urine pH 5.0, Ur Specific [place] 1.020, Urine Protein 30 H, Urine Glucose (UA) 1000 H, Urine Ketones 150 H, Urine Occult Blood Negative, Urine Nitrite Negative, Urine Bilirubin Negative, Urine Urobilinogen Normal, Ur Leukocyte Esterase Negative, Urine RBC 0 SEEN, Urine WBC 0-5 SEEN, Ur Squamous Epith Cells 0-5 SEEN, Urine Bacteria 0 SEEN, Urine Mucus 0 SEEN 11/04/19 23:56: POC Glucose 128 H 11/05/19 00:10: Phosphorus 2.6, Magnesium 1.8, Total Bilirubin 0.20, Direct Bilirubin 0.07, AST 6 L, ALT 15, Alkaline Phosphatase 139 H, Total Protein 7.6, Albumin 2.9 L, Globulin 4.7 H, Lipase 35 L 11/05/19 00:10: Hemoglobin A1c 9.6 H 11/05/19 00:10: Sodium 139, Potassium 4.0, Chloride 112 H, Carbon Dioxide 18.0 L, Anion Gap 9, BUN 8, Creatinine 0.60, Estim Creat Clear Calc 112.86, Est GFR (MDRD) Af Amer 161, Est GFR (MDRD) Non-Af 133, BUN/Creatinine Ratio 13.2, Glucose 118 H, Calcium 8.6 11/05/19 00:57: POC Glucose 80 11/05/19 01:49: POC Glucose 98 11/05/19 02:46: POC Glucose 142 H 11/05/19 03:53: POC Glucose 114 H 11/05/19 03:55: Sodium 137, Potassium 3.8, Chloride 110 H, Carbon Dioxide 19.0 L, Anion Gap 8, BUN 7, Creatinine 0.51 L, Estim Creat Clear Calc 132.78, Est GFR (MDRD) Af Amer 198, Est GFR (MDRD) Non-Af 163, BUN/Creatinine Ratio 13.8, Glucose 119 H, Calcium 8.3 L 11/05/19 03:55: WBC 13.8 H, RBC 4.36, Hgb 12.1, Hct 36.6 L, MCV 83.9, MCH 27.8, MCHC 33.1, RDW Std Deviation 37.1, RDW Coeff of Jose Roberto 12.1, Plt Count 410, MPV 9.2, Immature Gran % (Auto) 0.700, Neut % (Auto) 70.1 H, Lymph % (Auto) 21.4, Wilkin % (Auto) 6.8, Eos % (Auto) 0.5, Baso % (Auto) 0.5, Absolute Neuts (auto) 9.7 H 11/05/19 05:02: POC Glucose 103 11/05/19 06:16: POC Glucose 90 Current Medications Acetaminophen (Tylenol) 650 mg PO Q6H PRN PRN PRN Reason: Pain Score 1-3/Temp > 100.7 F Al Hydroxide/Mg Hydroxide (Mylanta Ii) 30 ml PO Q6H PRN PRN PRN Reason: Gastric Burning Albuterol Sulfate (Ventolin Aerosols) 2.5 mg INHALATION Q2H PRN PRN PRN Reason: SOB/Wheezing Atorvastatin Calcium (Lipitor) 20 mg PO QHS [facility] Enoxaparin Sodium (Lovenox) 40 mg SC DAILY [facility] Famotidine (Pepcid) 20 mg PO BID [facility] Glucagon () 1 mg IM .X1 PRN PRN Reason: Hypoglycemia Guaifenesin (Robitussin) 10 ml PO Q4H PRN PRN PRN Reason: COUGH Sodium Chloride () 250 mls @ 15 mls/hr IV .[id number] PRN PRN Reason: Saline Flush Sodium Chloride () 250 mls @ 15 mls/hr IV .[id number] PRN PRN Reason: Additional IVPB Infusion Potassium Chloride/Dextrose/Sod Cl (Kcl 20meq In D5.45ns 1000ml) 1,000 mls @ 150 mls/hr IV .Q6H40M [facility] Last Admin: 11/05/19 06:49 Dose: 150 mls/hr Documented by: Insulin Glargine (Lantus (Bkc)) 12 units SC BREAKFAST [facility] Last Admin: 11/05/19 05:14 Dose: 12 units Documented by: Insulin Glargine (Lantus (Bkc)) 60 units SC QHS [facility] Insulin Human Lispro (Humalog Kwikpen (Bkc)) 0 unit SC ACHS [facility]; Protocol Levothyroxine Sodium (Synthroid) 50 mcg PO DAILY@0600 [facility] Last Admin: 11/05/19 05:08 Dose: 50 mcg Documented by: Lisinopril (Zestril) 30 mg PO DAILY [facility] Melatonin (Melatonin) 3 mg PO QHS PRN PRN PRN Reason: INSOMNIA Morphine Sulfate () 2 mg IV Q3H PRN PRN PRN Reason: Pain Score 6-10/10 Ondansetron HCl (Zofran) 4 mg IV Q8H PRN PRN PRN Reason: NAUSEA/VOMITING Oxycodone HCl (Oxyir) 5 mg PO Q4H PRN PRN PRN Reason: Pain Score 4-5/10 Prochlorperazine Edisylate (Compazine Iv) 5 mg IV Q4H PRN PRN PRN Reason: Breakthrough Nausea/Vomiting Sodium Chloride () 10 - 40 ml IV UD PRN PRN Reason: SALINE FLUSH Last Admin: 11/05/19 00:14 Dose: 10 ml Documented by: Throat Lozenges (Cepacol Sore Throat Lozenge) 1 lozenge MUCOUS MEM Q2H PRN PRN PRN Reason: Sore Throat/Cough STROKE Vital Signs/Narrative: Vital Signs Temp Pulse Resp BP BP Pulse Ox 11/05/19 06:00 98.4 F 110 H 15 129/66 H 98 11/05/19 05:00 110 H 17 128/64 H 99 11/05/19 04:00 98.6 F 114 H 18 115/56 L 115/56 L 98 Medical Necessity - Tobacco Use Smoking Status: Former smoker Tobacco Use: Non-smoker Assessment/Plan All Active Problems (Last Updated 08/17/19 @ 16:04 by VIVIANE RichmondC) Sinusitis (Acute) Otitis media, right (Acute) Ruptured ear drum (Acute) Hypomagnesemia (Acute) Hypokalemia (Acute) UTI (urinary tract infection) (Acute) DKA (diabetic ketoacidoses) (Acute) Patient is a 19-year-old lady with history of diabetes mellitus type 1 presented with nausea and vomiting and assessment of DKA made admitted to the intensive care unit for subsequent management 1. Diabetes mellitus type 1 presenting with DKA ?Admitted to the intensive care unit management insulin drip, IV fluids and correction of electrolytes and serial monitoring of BMPs plan is to transfer the patient to the regular nursing floor with initiation of her home insulin regimen once DKA resolves. 2. Essential hypertension ?Patient is on lisinopril discontinue 3. Hypothyroidism ~patient is on levothyroxine home dose continued 4. Dyslipidemia ~patient is on statin therapy, continued at home dose 5. Morbid obesity ?With BMI of 42.7 weight loss advised 6. DVT prophylaxis ?Lovenox Active Medications Acetaminophen (Tylenol) 650 mg PO Q6H PRN PRN PRN Reason: Pain Score 1-3/Temp > 100.7 F Al Hydroxide/Mg Hydroxide (Mylanta Ii) 30 ml PO Q6H PRN PRN PRN Reason: Gastric Burning Albuterol Sulfate (Ventolin Aerosols) 2.5 mg INHALATION Q2H PRN PRN PRN Reason: SOB/Wheezing Atorvastatin Calcium (Lipitor) 20 mg PO QHS [facility] Enoxaparin Sodium (Lovenox) 40 mg SC DAILY [facility] Famotidine (Pepcid) 20 mg PO BID [facility] Glucagon () 1 mg IM .X1 PRN PRN Reason: Hypoglycemia Guaifenesin (Robitussin) 10 ml PO Q4H PRN PRN PRN Reason: COUGH Sodium Chloride () 250 mls @ 15 mls/hr IV .[id number] PRN PRN Reason: Saline Flush Sodium Chloride () 250 mls @ 15 mls/hr IV .[id number] PRN PRN Reason: Additional IVPB Infusion Potassium Chloride/Dextrose/Sod Cl (Kcl 20meq In D5.45ns 1000ml) 1,000 mls @ 150 mls/hr IV .Q6H40M [facility] Last Admin: 11/05/19 06:49 Dose: 150 mls/hr Documented by: Insulin Glargine (Lantus (Bkc)) 12 units SC BREAKFAST [facility] Last Admin: 11/05/19 05:14 Dose: 12 units Documented by: Insulin Glargine (Lantus (Bkc)) 60 units SC QHS [facility] Insulin Human Lispro (Humalog Kwikpen (Bkc)) 0 unit SC ACHS [facility]; Protocol Levothyroxine Sodium (Synthroid) 50 mcg PO DAILY@0600 [facility] Last Admin: 11/05/19 05:08 Dose: 50 mcg Documented by: Lisinopril (Zestril) 30 mg PO DAILY [facility] Melatonin (Melatonin) 3 mg PO QHS PRN PRN PRN Reason: INSOMNIA Morphine Sulfate () 2 mg IV Q3H PRN PRN PRN Reason: Pain Score 6-10/10 Ondansetron HCl (Zofran) 4 mg IV Q8H PRN PRN PRN Reason: NAUSEA/VOMITING Oxycodone HCl (Oxyir) 5 mg PO Q4H PRN PRN PRN Reason: Pain Score 4-5/10 Prochlorperazine Edisylate (Compazine Iv) 5 mg IV Q4H PRN PRN PRN Reason: Breakthrough Nausea/Vomiting Sodium Chloride () 10 - 40 ml IV UD PRN PRN Reason: SALINE FLUSH Last Admin: 11/05/19 00:14 Dose: 10 ml Documented by: Throat Lozenges (Cepacol Sore Throat Lozenge) 1 lozenge MUCOUS MEM Q2H PRN PRN PRN Reason: Sore Throat/Cough Code Visit Inpatient E&M: [id number] [place] [id number]
[2019-11-05 09:00] LABS: Bedside Glucose 348 mg/dL (70-110)
[2019-11-05] MEDS: Ondansetron 4 MG/2 ML Vial IV (09:16)
--- NOTE | 2019-11-05 09:20 | CASEMGMT ---
RN SHERIE UTILITY TRACTOR OPERATOR CM to room to meet with patient for initial transition planning/care coordination assessment. RN SHERIE introduced self and role at [facility]. Pt voices understanding and consents to assessment at this time. Pt sitting up in recliner room in no distress at this time. Pt is A/O at this time and answers all questions appropriately. Care providers, pharmacy, and demographics verified/updated at this time. PCP: Dr Petros Spicer Specialists: Dr Lazaro, de alcoholizer in [facility] Pharmacy: Brianna Lanza Insurance: [employer] [facility] Prescription Benefit: Yes Living Will/HPOA: None LNOK: Parents, Katherin and Dick Jones Living Arrangements: Lives with her parents. Transportation: Pt states drives self and states no transportation concerns at this time. DME: Has a glucometer--states it is working properly and she has all the needed supplies for it. Pt states no need for further DME at this time. Pt wishes to return home and states has no concerns with going home at time of discharge. CM to follow for any discharge planning/needs. Pt voices no concerns/needs at this time. Advised pt to ask for CM if any further questions/concerns/needs arise. Voices understanding. PLAN: Home w/family support and discharge plans in place. Jo-Ann AGUILLON RN, CM
[2019-11-05] MEDS: 0.9% Normal Saline 1,000 ML 150 ML IV ×3 (09:23→23:20)
[2019-11-05] MEDS: Insulin Lispro 100 UNIT/ML INSULN.PEN SC ×4 (09:25→22:16)
[2019-11-05] MEDS: Lisinopril 10 MG Tablet 30 MG PO (10:33)
[2019-11-05] MEDS: Famotidine 20 MG Tablet PO ×2 (10:33→22:15)
[2019-11-05 10:53] LABS: Anion Gap 14 (5-15); BUN 8 mg/dL (7-18); BUN/Creat Ratio 11.3 RATIO (10-20); Calcium,Total 8.8 mg/dL (8.5-10.1); Chloride 103 mmol/L (98-107); Creatinine, Serum 0.71 mg/dL (0.55-1.02); EST Glomerular Filtration Rate 111 mL/min (>60); Est Glom Filt Rate - Afr Amer 134 mL/min (>60); Estimated Creatinine Clearance 95.38 ml/min; Glucose 447 mg/dL (74-106); Potassium 4.7 mmol/L (3.5-5.1); Sodium Level 132 mmol/L (136-145)
[2019-11-05 14:11] LABS: Bedside Glucose 291 mg/dL (70-110)
[2019-11-05 14:11] LABS: Bedside Glucose 403 mg/dL (70-110)
[2019-11-05 15:10] LABS: Bedside Glucose 335 mg/dL (70-110)
[2019-11-05] MEDS: Insulin Lispro 100 UNIT/ML INSULN.PEN 15 UNIT SC (16:33)
[2019-11-05] MEDS: Cefazolin 2 GM in 0.9% Normal Saline 100 ML IV (16:34)
[2019-11-05 16:51] LABS: Bedside Glucose 364 mg/dL (70-110)
[2019-11-05] MEDS: Atorvastatin Calcium 20 MG Tablet PO (22:15)
[2019-11-05] MEDS: Cefazolin 1 GM/50 ML BAG IV (22:15)
[2019-11-05 22:55] LABS: Bedside Glucose 253 mg/dL (70-110)
[2019-11-06 04:10] VITALS: BP 139/70; PULSE 102; RESP 12; TEMP 36.8; O2SAT 99
[2019-11-06] MEDS: 0.9% Normal Saline 1,000 ML 150 ML IV (06:14)
[2019-11-06] MEDS: Levothyroxine 50 MCG Tablet PO (06:14)
[2019-11-06] MEDS: Cefazolin 1 GM/50 ML BAG IV (06:14)
[2019-11-06 08:07] VITALS: BP 137/80; PULSE 102; RESP 18; TEMP 36.8; O2SAT 99
[2019-11-06 08:39] VITALS: O2SAT 99
[2019-11-06] MEDS: Insulin Lispro 100 UNIT/ML INSULN.PEN SC (08:59)
[2019-11-06] MEDS: Insulin Lispro 100 UNIT/ML INSULN.PEN 15 UNIT SC ×2 (08:59→12:26)
[2019-11-06 09:01] LABS: Hematocrit 37.8 % (37-47); Hemoglobin 12.2 g/dL (12.0-15.0); Mean Corp Hgb Conc 32.3 g/dL (32-36); Mean Corpuscular Hgb 26.8 pg (27.0-32.0); Mean Corpuscular Volume 83.1 fL (81-99); Mean Platelet Vol. 9.1 fl (6.2-12.0); Platelet Count 372 K/mm3 (150-450); RBC Distribution Width CV 12.5 % (11.6-14.6); RBC Distribution Width SD 37.3 fl (35.1-43.9); Red Blood Count 4.55 M/mm3 (4.2-5.4); White Blood Count 9.3 K/mm3 (4.4-11.0)
[2019-11-06 09:25] LABS: Anion Gap 10 (5-15); BUN 6 mg/dL (7-18); BUN/Creat Ratio 12.4 RATIO (10-20); Calcium,Total 8.8 mg/dL (8.5-10.1); Chloride 108 mmol/L (98-107); Creatinine, Serum 0.48 mg/dL (0.55-1.02); EST Glomerular Filtration Rate 172 mL/min (>60); Est Glom Filt Rate - Afr Amer 208 mL/min (>60); Estimated Creatinine Clearance 141.08 ml/min; Glucose 254 mg/dL (74-106); Magnesium 1.8 mg/dL (1.6-2.6); Potassium 4.2 mmol/L (3.5-5.1); Sodium Level 136 mmol/L (136-145)
[2019-11-06] MEDS: Famotidine 20 MG Tablet PO (10:21)
[2019-11-06] MEDS: Lisinopril 10 MG Tablet 30 MG PO (10:22)
--- NOTE | 2019-11-06 10:38 | PCM.DC ---
- Discharge Diagnoses Current Active Problems: Current Active and Chronic Problems (Last Updated 08/17/19 @ 16:04 by RIO Richmond) Hypothyroidism (Chronic) Anxiety and depression (Chronic) You will use the following diet at home:: Calorie/Carbohydrate Controlled (specify 1200, 1400, etc) - 1800 Your food should be the consistency of: Regular Discharge Activity: Return to Normal Activity Allergies/Adverse Reactions: Allergies No Known Allergies Allergy (Verified 11/04/19 18:55) Medications to take at Discharge Insulin Glargine,Hum.rec.anlog [Toujeo Max Solostar] 60 unit SQ QHS 07/28/19 Insulin Lispro [Humalog] 0 units SQ TIDCM 07/28/19 Levothyroxine [Synthroid] 50 mcg PO DAILY 07/28/19 Lisinopril 30 mg PO DAILY 07/28/19 Cephalexin [Keflex] 500 mg PO Q8 #15 cap 11/06/19 Insulin Glargine,Hum.rec.anlog [Toujeo Max Solostar] 30 units SQ BREAKFAST #0 11/06/19 The following prescriptions were given: Cephalexin [Keflex] 500 mg PO Q8 #15 cap Transmission Status: Pending to [facility] [facility] Primary Care Physician: Petros Spicer MD [Primary Care Provider] - Please follow up with your Primary Care Physician in: in 5-7 days Test Results: Test results from this visit will be discussed in further detail at your follow-up appointment, if applicable. Proposed Discharge Date: 11/06/19
--- NOTE | 2019-11-06 10:40 | PCM.DC.SUM ---
Discharge Date and Diagnosis Date of Admission: 11/04/19 Date of Discharge: 11/06/19 - Primary Discharge Diagnosis Diabetic ketoacidosis type I - Secondary Discharge Diagnosis Chronic Problems (Last Updated 08/17/19 @ 16:04 by RIO Richmond) Hypothyroidism (Chronic) Anxiety and depression (Chronic) Obesity, Class III, BMI 40-49.9 (morbid obesity) (Chronic) Type 1 diabetes mellitus (Chronic) Dyslipidemia (high LDL; low HDL) (Chronic) Hospital Course and Treatment Operations: None Summary of Care Provided: Patient is a 19-year-old lady with history of diabetes mellitus type 1 presented with nausea and vomiting and assessment of DKA made admitted to the intensive care unit for subsequent management 1. Diabetes mellitus type 1 presenting with DKA ?Admitted to the intensive care unit management insulin drip, IV fluids and correction of electrolytes and serial monitoring of BMPs plan is to transfer the patient to the regular nursing floor with initiation of her home insulin regimen once DKA resolves. ?11/06/2019 DKA resolved patient initiated on her long-acting and scheduled short acting insulin. Discharge home instructed to follow-up with PCP as well as primary business law teacher for subsequent management 2. Essential hypertension ?Patient is on lisinopril discontinue 3. Hypothyroidism ~patient is on levothyroxine home dose continued 4. Dyslipidemia ~patient is on statin therapy, continued at home dose 5. Morbid obesity ?With BMI of 42.7 weight loss advised 6. DVT prophylaxis ?Lovenox 7. Suspected cellulitis ?At the site of a recent left forearm tattoo. Patient was treated with cefazolin prescription written for Keflex on discharge Objective: GENERAL: cooperative HEENT: Atraumatic; EYES; Anicteric, Normal Conjunctiva NECK; supple, normal thyroid, RESPIRATORY: Diminished to auscultation CARDIOVASCULAR: Regular S1 S2, GI: soft, normoactive bowel sounds, : No Renal angle tenderness; EXTREMITIES: No edema, no clubbing, MUSCULOSKELETAL: no muscle waisting NEURO: Awake; no lateralizing signs. SKIN: Fresh tattoo on the PSYCH; Flat affect - Physical Exam Vitals/I&O's: Vital Signs Temp Pulse Resp BP Pulse Ox 98.3 F 102 H 18 137/80 H 99 11/06/19 08:07 11/06/19 08:07 11/06/19 08:07 11/06/19 08:07 11/06/19 08:39 Oxygen Delivery Method Room Air Weight: 102.6 kg Body Mass Index (BMI) 42.7 Finger Stick Blood Glucose 90 Intake and Output for Last 24 Hours 11/04/19 11/05/19 11/06/19 23:59 23:59 23:59 Intake Total 6110.02 / 6110.02 1050 / 1050 Output Total 0 / 0 Balance 6110.02 / 6110.02 1050 / 1050 Laboratory Results 11/05/19 10:30: Sodium 132 L, Potassium 4.7, Chloride 103, Carbon Dioxide 15.0 L, Anion Gap 14, BUN 8, Creatinine 0.71, Estim Creat Clear Calc 95.38, Est GFR (MDRD) Af Amer 134, Est GFR (MDRD) Non-Af 111, BUN/Creatinine Ratio 11.3, Glucose 447 H, Calcium 8.8 11/05/19 12:44: POC Glucose 291 H 11/05/19 14:03: POC Glucose 403 H 11/05/19 15:05: POC Glucose 335 H 11/05/19 16:31: POC Glucose 364 H 11/05/19 22:05: POC Glucose 253 H 11/06/19 08:40: WBC 9.3, RBC 4.55, Hgb 12.2, Hct 37.8, MCV 83.1, MCH 26.8 L, MCHC 32.3, RDW Std Deviation 37.3, RDW Coeff of Jose Roberto 12.5, Plt Count 372, MPV 9.1 11/06/19 08:40: Sodium 136, Potassium 4.2, Chloride 108 H, Carbon Dioxide 18.0 L, Anion Gap 10, BUN 6 L, Creatinine 0.48 L, Estim Creat Clear Calc 141.08, Est GFR (MDRD) Af Amer 208, Est GFR (MDRD) Non-Af 172, BUN/Creatinine Ratio 12.4, Glucose 254 H, Calcium 8.8, Magnesium 1.8 Current Medications Acetaminophen (Tylenol) 650 mg PO Q6H PRN PRN PRN Reason: Pain Score 1-3/Temp > 100.7 F Al Hydroxide/Mg Hydroxide (Mylanta Ii) 30 ml PO Q6H PRN PRN PRN Reason: Gastric Burning Albuterol Sulfate (Ventolin Aerosols) 2.5 mg INHALATION Q2H PRN PRN PRN Reason: SOB/Wheezing Atorvastatin Calcium (Lipitor) 20 mg PO QHS [facility] Last Admin: 11/05/19 22:15 Dose: 20 mg Documented by: Enoxaparin Sodium (Lovenox) 40 mg SC DAILY [facility] Last Admin: 11/06/19 10:21 Dose: Not Given Documented by: Famotidine (Pepcid) 20 mg PO BID [facility] Last Admin: 11/06/19 10:21 Dose: 20 mg Documented by: Glucagon () 1 mg IM .X1 PRN PRN Reason: Hypoglycemia Guaifenesin (Robitussin) 10 ml PO Q4H PRN PRN PRN Reason: COUGH Sodium Chloride () 250 mls @ 15 mls/hr IV .[id number] PRN PRN Reason: Saline Flush Sodium Chloride () 250 mls @ 15 mls/hr IV .[id number] PRN PRN Reason: Additional IVPB Infusion Sodium Chloride () 1,000 mls @ 150 mls/hr IV .Q6H40M [facility] Last Infusion: 11/06/19 06:14 Dose: 0 mls/hr Documented by: Cefazolin Sodium () 1 gm in 50 mls @ 100 mls/hr IV Q8 [facility] Last Infusion: 11/06/19 06:44 Dose: Infused Documented by: Insulin Glargine (Lantus (Bkc)) 60 units SC QHS [facility] Last Admin: 11/05/19 22:20 Dose: 60 unit Documented by: Insulin Glargine (Lantus (Bkc)) 20 units SC BREAKFAST [facility] Last Admin: 11/06/19 08:56 Dose: 20 units Documented by: Insulin Human Lispro (Humalog Kwikpen (Bkc)) 0 unit SC ACHS [facility]; Protocol Last Admin: 11/06/19 08:59 Dose: 4 u Documented by: Insulin Human Lispro (Humalog Kwikpen (Bkc)) 15 unit SC TIDAC [facility] Last Admin: 11/06/19 08:59 Dose: 15 u Documented by: Levothyroxine Sodium (Synthroid) 50 mcg PO DAILY@0600 [facility] Last Admin: 11/06/19 06:14 Dose: 50 mcg Documented by: Lisinopril (Zestril) 30 mg PO DAILY [facility] Last Admin: 11/06/19 10:22 Dose: 30 mg Documented by: Melatonin (Melatonin) 3 mg PO QHS PRN PRN PRN Reason: INSOMNIA Morphine Sulfate () 2 mg IV Q3H PRN PRN PRN Reason: Pain Score 6-10/10 Ondansetron HCl (Zofran) 4 mg IV Q8H PRN PRN PRN Reason: NAUSEA/VOMITING Last Admin: 11/05/19 09:16 Dose: 4 mg Documented by: Oxycodone HCl (Oxyir) 5 mg PO Q4H PRN PRN PRN Reason: Pain Score 4-5/10 Prochlorperazine Edisylate (Compazine Iv) 5 mg IV Q4H PRN PRN PRN Reason: Breakthrough Nausea/Vomiting Promethazine HCl (Phenergan) 12.5 mg IM Q4H PRN PRN PRN Reason: NAUSEA/VOMITING Sodium Chloride () 10 - 40 ml IV UD PRN PRN Reason: SALINE FLUSH Last Admin: 11/05/19 00:14 Dose: 10 ml Documented by: Throat Lozenges (Cepacol Sore Throat Lozenge) 1 lozenge MUCOUS MEM Q2H PRN PRN PRN Reason: Sore Throat/Cough Discharge Diet: 1800 Calorie Control Diet Discharge Activity: Return to Normal Activity Home Medications: Medications to take at Discharge Insulin Glargine,Hum.rec.anlog [Toujeo Max Solostar] 60 unit SQ QHS 07/28/19 Insulin Lispro [Humalog] 0 units SQ TIDCM 07/28/19 Levothyroxine [Synthroid] 50 mcg PO DAILY 07/28/19 Lisinopril 30 mg PO DAILY 07/28/19 Cephalexin [Keflex] 500 mg PO Q8 #15 cap 11/06/19 Insulin Glargine,Hum.rec.anlog [Toujeo Max Solostar] 30 units SQ BREAKFAST #0 11/06/19 Following Prescrptions Were Given to Patient: Cephalexin [Keflex] 500 mg PO Q8 #15 cap Transmission Status: Pending to [facility] [facility] Primary Care Physician: Petros Spicer MD [Primary Care Provider] - Please follow up with your Primary Care Physician in: in 5-7 days Disposition: Home Minutes spent on discharge:: 35 Patient Condition:: Stable Medical Necessity - Tobacco Use Smoking Status: Former smoker Tobacco Use: Non-smoker Meaningful Use Info Meaningful Use Diagnoses (Choose all that apply): None applicable Code Visit Inpatient E&M: 27261 Disch Hosp
[2019-11-06 11:05] LABS: Bedside Glucose 229 mg/dL (70-110)
[2019-11-06 12:41] LABS: Bedside Glucose 145 mg/dL (70-110)
[2019-11-06 13:17] VITALS: BP 120/76; PULSE 98; RESP 16; TEMP 36.7; O2SAT 99
== END 2019-11-06 10:39 | disposition home or self-care (01) | DRG 638 ==
LOC: ED 19:55 → ICU 11-05 07:17 → PCU 12-13 11:45
PROVIDERS: Admitting Provider Family Medicine; Emergency Provider Emergency Medicine; PCP Family Medicine; Visit Provider Internal Medicine
DX: E10.10 Type 1 diabetes mellitus with ketoacidosis without coma (principal); Z68.41 Body mass index [BMI] 40.0-44.9, adult; E03.9 Hypothyroidism, unspecified; E78.5 Hyperlipidemia, unspecified; E66.01 Morbid (severe) obesity due to excess calories; I10 Essential (primary) hypertension; Z87.891 Personal history of nicotine dependence; F32.9 Major depressive disorder, single episode, unspecified; F41.9 Anxiety disorder, unspecified; R00.0 Tachycardia, unspecified; Z79.4 Long term (current) use of insulin; Z79.899 Other long term (current) drug therapy
CPT/HCPCS: 36415; 71045; 80048; 80076; 81001; 82009; 82962; 83036; 83690; 83735; 84100; 84703; 85025; 85027; 93005; 94762; 96361; 96365; 96366; 96367; 96375; 96376; 97802; 99218; 99285; J7030; A4216; G0378; J2405

== ENCOUNTER 2020-12-08 19:58 | Emergency (ER) | payer OTHER, SELFPAY ==
[2020-12-08 16:41] VITALS: BMI 39.0
[2020-12-08 19:58] VITALS: BP 136/75; PULSE 127; RESP 16; TEMP 36.2; O2SAT 100; BMI 38.5
[2020-12-08] MEDS: 0.9% Normal Saline 1,000 ML 1000 ML IV ×2 (20:28→21:32)
--- NOTE | 2020-12-08 20:34 | ED.DCSUM_ITS ---
- ER Visit Summary Date of Service: 12/08/20 Chief Complaint: Diarrhea History of Present Illness: The patient is a 20 F presenting with diarrhea and concern for dehydration. Patient states she has had diarrhea for the past 2 days. She denies blood in her stool. She has had nausea and infrequent vomiting. No recent travel. No recent oral antibiotics. No sick contacts. No known exposure to Covid. She complains of mild abdominal cramping. She was seen by her primary care physician today and had elevated blood sugar in the office. She was given IM Rocephin for otitis media and Phenergan IM. She was sent to the ED due to concern for dehydration and possible DKA. Physical Examination: Vitals are stable. Heart rate 127. Patient is afebrile. Alert no acute distress. HEENT exam mild bilateral TM erythema Neck is supple. No meningismus Lungs are clear and equal bilaterally. Heart is regular and tachycardic Abdomen is soft nontender nondistended. No guarding or rebound Extremities are unremarkable. Skin is warm and dry. No rash No focal neurologic deficit. Remainder of exam is unremarkable. Emergency Department Course and Treatment: Patient was given IV fluids. CBC shows white count 16.1. Chemistries show sodium 133, glucose 282. hCG negative. Ketones negative. Urinalysis shows 0 white cells, 0 red cells, positive ketones, positive glucose. Patient was given insulin subcutaneously. On reevaluation she is feeling improved. Repeat heart rate is 77. Patient then became nauseated and was given Zofran. Cdiff is pending and will be checked out to oncoming physician. Disposition: pending Impression: Diarrhea, dehydration This note was generated with [employer] dictation software. It may contain incorrect words, spelling, and punctuation that were not noted in review of the chart prior to signing ED Disposition - Plan for ED Patient: Referrals: Petros Spicer MD [NON-STAFF] -
[2020-12-08 20:37] LABS: Absolute Lymphocyte Count 1.88 X10^3/uL (0.83-4.51); Absolute Neutrophil Count 13.2 X10^3/uL (2.0-7.7); Basophil# 0.08 X10^3/uL; Basophil% 0.5 % (0-1); Eosinophil# 0.13 X10^3/uL; Eosinophils% 0.8 % (0-5); Hematocrit 42.9 % (37-47); Hemoglobin 14.4 g/dL (12.0-15.0); Lymphocyte # 1.88 X10^3/ul (4.0); Lymphocyte % 11.7 % (19-41); Mean Corp Hgb Conc 33.6 g/dL (32-36); Mean Corpuscular Hgb 28.2 pg (27.0-32.0); Mean Platelet Vol. 9.5 fl (6.2-12.0); Monocyte# 0.68 X10^3/uL; Monocyte% 4.2 % (0-10); NRBC Flagged by Analyzer 0 % (0-5); Neutrophil # 13.18 X10^3/uL (2.7-7.7); Neutrophil % 82.2 % (47-70); Platelet Count 440 K/mm3 (150-450); RBC Distribution Width SD 36.6 fl (35.1-43.9); Red Blood Count 5.11 M/mm3 (4.2-5.4); White Blood Count 16.1 K/mm3 (4.4-11.0)
[2020-12-08 20:39] LABS: Internal QC Validated? YES +Cl - CLEAR BKGD; Pregnancy, Serum, hCG Quali. NEGATIVE Negative
[2020-12-08 20:43] LABS: Bacteria 0 SEEN /hpf (None Seen); Mucous, Urine 0 SEEN /hpf (<or=2+); Red Blood Cells-Urine 0 SEEN /hpf (0-5); White Blood Cells 0 SEEN /hpf (0-5)
[2020-12-08 20:44] LABS: Color, Urine Yellow (Yellow); Glucose, Dipstick 1000 mg/dl (Normal); Leukocyte Esterase-Dipstick Negative /ul (Negative); Nitrite-Dipstick Negative (Negative); Occult Blood-Urine Negative /ul (Negative); Protein-Dipstick 30 mg/dl (Negative); Urine Bilirubin Dipstick Negative (Negative); Urine Clarity Clear (Clear); Urine Urobilinogen Normal (Normal)
[2020-12-08 20:46] LABS: ALB/GLOB Ratio 0.7 RATIO (0.9-2.4); AST(SGOT) 6 U/L (15-37); Alanine Aminotransfer ALT/SGPT 15 U/L (13-56); Albumin, Serum 3.5 g/dL (3.2-5.0); Alkaline Phosphatase 144 U/L (45-117); Anion Gap 8 (5-15); BUN 5 mg/dL (7-18); BUN/Creat Ratio 7.4 RATIO (10-20); Chloride 99 mmol/L (98-107); Creatinine, Serum 0.68 mg/dL (0.55-1.02); EST Glomerular Filtration Rate 115 mL/min (>60); Est Glom Filt Rate - Afr Amer 140 mL/min (>60); Estimated Creatinine Clearance 98.75 ml/min; Globulin 4.9 g/dL (2.2-4.2); Glucose 282 mg/dL (74-106); Potassium 3.3 mmol/L (3.5-5.1); Protein, Total 8.4 g/dL (6.4-8.2); Sodium Level 133 mmol/L (136-145)
[2020-12-08 20:59] LABS: Ketone-Dipstick 150 mg/dl (Negative); Squamous Epithelial Cells - UA 0-5 SEEN /hpf (5-10)
[2020-12-08] MEDS: Insulin Lispro 100 UNIT/ML INSULN.PEN 10 UNIT SC (21:08)
[2020-12-08 21:12] VITALS: BP 115/66; PULSE 77; RESP 18; O2SAT 97
[2020-12-08 22:45] LABS: Bedside Glucose 196 mg/dL (70-110)
[2020-12-08] MEDS: Ondansetron 4 MG/2 ML Vial IV (22:45)
[2020-12-08 23:00] VITALS: BP 130/66; PULSE 110; RESP 17; O2SAT 100
[2020-12-08] MEDS: Potassium Chloride Oral Tablet 20 MEQ PO (23:16)
--- NOTE | 2020-12-09 01:00 | ED.DEP ---
ED Disposition - Plan for ED Patient: Disposition: Home or Assisted Living Diagnosis: Acute diarrhea Instructions: ED Diarrhea, Unknown Cause Referrals: Petros Spicer MD [NON-STAFF] - As soon as possible
[2020-12-09 01:14] VITALS: BP 121/78; PULSE 80; RESP 18; O2SAT 99
== END 2020-12-09 01:15 | disposition home or self-care (01) ==
PROVIDERS: Emergency Provider Emergency Medicine; PCP Nurse Practitioner
DX: R19.7 Diarrhea, unspecified (principal); E86.0 Dehydration; E10.9 Type 1 diabetes mellitus without complications; Z79.4 Long term (current) use of insulin
CPT/HCPCS: 80053; 81001; 82009; 82962; 84703; 85025; 87493; 87506; 96361; 96374; 99285; J7030; J7040; A4216; J2405

== ENCOUNTER → 2020-12-08 21:53 | Outpatient (CLI) | payer OTHER, SELFPAY ==
[2020-12-08 19:58] VITALS: BMI 38.5
[2020-12-08 22:11] LABS: Absolute Lymphocyte Count 1.65 X10^3/uL (0.83-4.51); Absolute Neutrophil Count 11.8 X10^3/uL (2.0-7.7); Basophil# 0.09 X10^3/uL; Basophil% 0.6 % (0-1); Eosinophil# 0.09 X10^3/uL; Eosinophils% 0.6 % (0-5); Hematocrit 42.8 % (37-47); Hemoglobin 13.9 g/dL (12.0-15.0); Lymphocyte # 1.65 X10^3/ul (4.0); Lymphocyte % 11.3 % (19-41); Mean Corp Hgb Conc 32.5 g/dL (32-36); Mean Corpuscular Hgb 27.5 pg (27.0-32.0); Mean Corpuscular Volume 84.8 fL (81-99); Mean Platelet Vol. 10.4 fl (6.2-12.0); Monocyte# 0.83 X10^3/uL; Monocyte% 5.7 % (0-10); NRBC Flagged by Analyzer 0 % (0-5); Neutrophil # 11.84 X10^3/uL (2.7-7.7); Neutrophil % 81.3 % (47-70); Platelet Count 461 K/mm3 (150-450); RBC Distribution Width SD 36.6 fl (35.1-43.9); Red Blood Count 5.05 M/mm3 (4.2-5.4); White Blood Count 14.6 K/mm3 (4.4-11.0)
[2020-12-08 22:33] LABS: Hemoglobin A1c 11.7 % (3.8-5.6)
[2020-12-08 22:37] LABS: ALB/GLOB Ratio 0.7 RATIO (0.9-2.4); AST(SGOT) 11 U/L (15-37); Alanine Aminotransfer ALT/SGPT 16 U/L (13-56); Albumin, Serum 3.4 g/dL (3.2-5.0); Alkaline Phosphatase 143 U/L (45-117); Anion Gap 9 (5-15); BUN 6 mg/dL (7-18); BUN/Creat Ratio 12.1 RATIO (10-20); Calcium,Total 8.9 mg/dL (8.5-10.1); Chloride 101 mmol/L (98-107); EST Glomerular Filtration Rate 165 mL/min (>60); Est Glom Filt Rate - Afr Amer 200 mL/min (>60); Globulin 4.8 g/dL (2.2-4.2); Glucose 204 mg/dL (74-106); Potassium 3.7 mmol/L (3.5-5.1); Protein, Total 8.2 g/dL (6.4-8.2); Sodium Level 136 mmol/L (136-145); Thyroid Stim Hormone (TSH) 1.34 uIU/mL (0.358-3.74)
== END ==
PROVIDERS: PCP Nurse Practitioner; Visit Provider Nurse Practitioner
DX: E10.43 Type 1 diabetes mellitus with diabetic autonomic (poly)neuropathy (principal); K31.84 Gastroparesis; E10.65 Type 1 diabetes mellitus with hyperglycemia; R19.7 Diarrhea, unspecified; E86.0 Dehydration; N30.90 Cystitis, unspecified without hematuria
CPT/HCPCS: 80053; 83036; 84443; 85025; 87077; 87086; 87088; 87186

== ENCOUNTER 2021-04-02 07:12 | Emergency (ER) | payer BC, SELFPAY ==
[2021-04-02 07:13] VITALS: BP 139/75; PULSE 114; RESP 14; TEMP 36.8; O2SAT 100; BMI 36.2
--- NOTE | 2021-04-02 07:34 | CT_ITS ---
STUDY: CT BRAIN WITHOUT CONTRAST REASON FOR EXAM: Female, 21 years old. 2 week history of migraines. RADIATION DOSAGE (If Supplied By Facility): CTDIvol = ( 44.99 ) mGy, DLP = ( 745.49 ) mGycm TECHNIQUE: Transaxial CT imaging of the brain was performed without administration of intravenous contrast material. Individualized dose optimization techniques were used for this CT. COMPARISON: No relevant priors. FINDINGS: Normal soft tissue structures. Normal calvarium. Normal size ventricles and extra-axial spaces for the patient''s age. Normal white matter tracts of the cerebral hemispheres. A tiny lacuna is seen in the left basal ganglia. Normal brainstem. Normal cerebellum. There is no intracranial hemorrhage. There are no findings of an acute ischemic infarction. Normal visualized paranasal sinuses. CT/Brain/Head without Contrast IMPRESSION: A tiny lacune is seen in the left basal ganglia. Electronically Signed: Claude Chauhan MD at 8:45 EDT , Service support ,
--- NOTE | 2021-04-02 07:36 | EX.ED.VIS.HA ---
HPI History of Present Illness Chief Complaint: Headache Informant: patient Onset/Context/Timing Onset: Weeks (3) Timing: Continuous Quality -Headache: Positive for Sharp and Throbbing Location: Frontal Worsened by: Nothing Relieved by: Nothing Associated Symptoms/Injury Associated Symptoms: Positive for Nausea and Blurred Vision; Negative for Fever, Vomiting, Sore Throat, Sinus Pressure, Numbness, Tingling, Preceding Aura, Photophobia and Visual Loss Narrative Narrative: Patient presents with headache that has been constant for the past 2-1/2 to 3 weeks. Patient states that he moves around but mainly is between her eyes. Patient describes a sharp and throbbing. Patient admits to nausea but denies any vomiting. Patient mitts to some blurred vision but denies any scotoma, auras, or loss of vision. Patient denies any fevers or chills. Patient denies any sore throat. Patient denies any neck pain. [facility] Medical History (Updated 04/02/21 @ 09:[address] 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 Home Medications insulin lispro 100 unit/mL subcutaneous solution 1 sliding scale dose SC USEASDIRECTD 30 Days #10 ml 01/07/20 [Rx Last Taken Unknown] levothyroxine 50 mcg tablet 50 mcg PO DAILY #90 tab 02/08/20 [Rx Last Taken Unknown] lisinopril 20 mg tablet 30 mg PO DAILY 90 Days #135 tab 02/08/20 [Rx Last Taken Unknown] insulin glargine 100 unit/mL (3 mL) subcutaneous pen 62 unit SC DAILY 90 Days #55.8 ml 02/14/20 [Rx Last Taken Unknown] amoxicillin-pot clavulanate 1 ea PO BID 12/08/20 [History Last Taken Unknown] promethazine 12.5 mg tablet 12.5 mg PO TID PRN #45 tab 12/08/20 [Rx Last Taken Unknown] Allergy/AdvReac Type Severity Reaction Status Date / Time No Known Allergies Allergy Verified 04/02/21 07:13 Family History Other CVA (cerebral vascular accident) Diabetes Heart disease Hypertension Surgical History History of tonsillectomy Hx of tympanostomy tubes Social History Smoking Status: Never smoker ROS ROS ED Constitutional Constitutional ED: Denies chills or fever(s) Eyes Eyes: Reports blurry vision; Denies change in vision ENT ENT ED: Denies rhinorrhea or sore throat Cardiovascular Cardiovascular: Denies chest pain or palpitations Respiratory/Chest Respiratory/Chest: Denies cough or dyspnea Gastrointestinal Gastrointestinal: Reports nausea; Denies vomiting Genitourinary Genitourinary ED: Denies dysuria or hematuria Musculoskeletal Musculoskeletal: Denies back pain or neck pain Integumentary Denies abscess or rash Neurologic Neurologic: Reports headache(s); Denies weakness Allergic/Immunologic Allergic/Immunologic ED: Denies mouth swelling or urticaria EXAM Physical Exam Const Vital Signs: 04/02/21 07:13 Temperature 98.2 F Temperature Source Temporal Pulse Rate 114 H Respiratory Rate 14 Blood Pressure 139/75 H Blood Pressure Mean 96 Pulse Ox 100 Oxygen Delivery Method Room Air Positive well nourished, well developed and obese General Appearance ED: well developed Nutritional Appearance: obese HEENT Reports normocephalic and moist mucous membranes Eyes PERRL and EOMs intact bilaterally Neck supple and no JVD Resp normal respiratory effort and clear to auscultation bilaterally Cardio regular rate, regular rhythm and no murmurs GI normal to inspection, nondistended, normoactive bowel sounds, non-tender and non-distended Palpation: soft Extremity normal to inspection General Extremety ED: Negative for edema or tenderness General Extremity: Negative for edema Neuro oriented x3, CN's II-XII intact bilaterally and no sensory deficits noted Sensorium / Orientation: awake and alert Motor Exam: strength 5/5 throughout Psych mental status grossly normal Skin no rashes or lesions noted MDM MDM MDM Narrative Medical decision making narrative: Patient was ordered IV fluids, Reglan, and Benadryl. Patient refused IV fluids and medications. Patient was given oral Reglan and Benadryl per her request. CT scan of the brain was obtained. There is no acute intracranial hemorrhage. There is no acute infarct. There is a tiny lacune noted in the left basal ganglia. This was interpreted by the radiologist and reviewed by myself. On reevaluation, patient was starting to feel somewhat better. Patient was given a dose of Naprosyn. Patient was instructed to rest in a dark quiet room. Patient was instructed to follow-up with her primary care physician in 5 to 7 days. Patient and family understood and were agreeable with the plan. All questions were answered. Radiography Diagnostic Testing: Radiology Impression Brain CT 04/02/21 07:34 IMPRESSION: A tiny lacune is seen in the left basal ganglia. Electronically Signed: Claude Chauhan MD at 8:45 EDT , Service support , Discharge Plan Triage Chief Complaint: Headache ED Provider: David Alexis Dx/Rx/DC Orders Clinical Impression: Headache Instructions: ED Headache Unspecified Prescriptions: No Action insulin lispro [Humalog U-100 Insulin] 100 unit/mL solution 1 sliding scale dose SC USEASDIRECTD 30 Days Qty: 10 RF: 12 lisinopril 20 mg tablet 30 mg PO DAILY 90 Days Qty: 135 RF: 3 levothyroxine 50 mcg tablet 50 mcg PO DAILY Qty: 90 RF: 3 promethazine 12.5 mg tablet 12.5 mg PO TID PRN (Reason: nausea and vomiting) Qty: 45 RF: 1 amoxicillin-pot clavulanate 1 EACH tablet 1 ea PO BID RF: 0 Basaglar KwikPen U-100 Insulin 100 unit/mL (3 mL) insulin pen 62 unit SC DAILY 90 Days Qty: 55.8 RF: 3 Primary Care Provider: Ayaka Tsai NP Referrals: Ayaka Tsai NP, G[employer]ERNMENT RELATIONS MANAGER-C [Primary Care Provider] - 5-7 Days Disposition Disposition: Home, self care
--- NOTE | 2021-04-02 08:09 | ED.RN ---
PT REQUESTING NOT TO HAVE AN IV PLACED. PT WOULD LIKE PO MEDICATIONS. DR MORFIN
[2021-04-02] MEDS: Metoclopramide 10 MG Tablet PO (08:31)
[2021-04-02] MEDS: DiphenhydrAMINE 25 MG Capsule PO (08:31)
[2021-04-02] MEDS: Naproxen 250 MG Tablet 500 MG PO (09:21)
[2021-04-02 09:22] VITALS: BP 127/79; PULSE 102; RESP 16; O2SAT 99
== END 2021-04-02 09:24 | disposition home or self-care (01) ==
PROVIDERS: Emergency Provider Emergency Medicine; PCP Nurse Practitioner
DX: R51.9 Headache, unspecified (principal); E11.9 Type 2 diabetes mellitus without complications; E66.9 Obesity, unspecified; Z79.4 Long term (current) use of insulin
CPT/HCPCS: 70450; 90471; 99282; J7030; A4216

== ENCOUNTER 2021-06-09 14:08 | Emergency (ER) | payer BC, SELFPAY ==
[2021-06-09 14:09] VITALS: BP 162/89; PULSE 115; RESP 18; TEMP 36.8; O2SAT 100; BMI 37.1
--- NOTE | 2021-06-09 14:57 | EDS_ITS ---
HPI History of Present Illness Chief Complaint: Rash Informant: patient Onset/Context/Timing Onset: Weeks Context: Gradual Onset Current Severity: Moderate Maximum Severity: Moderate Narrative Narrative: Patient presents with painful itchy rash to her scalp. Patient states she was using some head and shoulders dandruff control shampoo. She developed a itchy painful rash over her scalp. Her hairdresser told her to use a couple other types of shampoo and conditioner to help correct this but she continues to have symptoms. She talked to a nurse practitioner on the phone today who advised her to come to the emergency room. 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 Home Medications insulin lispro 100 unit/mL subcutaneous solution 1 sliding scale dose SC USEASDIRECTD 30 Days #10 ml 01/07/20 [Rx Last Taken Unknown] levothyroxine 50 mcg tablet 50 mcg PO DAILY #90 tab 02/08/20 [Rx Last Taken Unknown] lisinopril 20 mg tablet 30 mg PO DAILY 90 Days #135 tab 02/08/20 [Rx Last Taken Unknown] insulin glargine 100 unit/mL (3 mL) subcutaneous pen 62 unit SC DAILY 90 Days #55.8 ml 02/14/20 [Rx Last Taken Unknown] amoxicillin-pot clavulanate 1 ea PO BID 12/08/20 [History Last Taken Unknown] promethazine 12.5 mg tablet 12.5 mg PO TID PRN #45 tab 12/08/20 [Rx Last Taken Unknown] prednisone 40 mg PO DAILY #8 tab 06/09/21 [Rx Last Taken Unknown] Allergy/AdvReac Type Severity Reaction Status Date / Time No Known Allergies Allergy Verified 06/09/21 14:09 Family History Other CVA (cerebral vascular accident) Diabetes Heart disease Hypertension Surgical History History of tonsillectomy Hx of tympanostomy tubes Social History Smoking Status: Never smoker ROS ROS ED Constitutional Constitutional ED: Denies chills or fever(s) Cardiovascular Cardiovascular: Denies chest pain Respiratory/Chest Respiratory/Chest: Denies cough or dyspnea Gastrointestinal Gastrointestinal: Denies abdominal pain, diarrhea, nausea or vomiting Genitourinary Genitourinary ED: Denies dysuria Musculoskeletal Musculoskeletal: Denies back pain or neck pain Integumentary Reports rash Neurologic Neurologic: Denies headache(s) or weakness Allergic/Immunologic Allergic/Immunologic ED: Denies urticaria EXAM Physical Exam Const Vital Signs: 06/09/21 14:09 Temperature 98.2 F Temperature Source Temporal Pulse Rate 115 H Respiratory Rate 18 Blood Pressure 162/89 H Blood Pressure Mean 113 Pulse Ox 100 Oxygen Delivery Method Room Air Positive well nourished and well developed General Appearance ED: well developed HEENT Reports moist mucous membranes Eyes PERRL and EOMs intact bilaterally Neck supple Chest Wall inspection of chest normal Resp normal respiratory effort and clear to auscultation bilaterally Cardio regular rate and regular rhythm GI non-tender Palpation: soft Skin Skin Narrative: Flat minimally erythematous rash noted to the anterior parietal scalp. Area involved on my exam is may be 6 x 3 cm total. No open wounds or drainage. MDM MDM MDM Narrative Medical decision making narrative: Rash does not appear to be consistent with shingles. I do not see any sign of secondary bacterial infection. She may have had a chemical burn initially but has had no significant improvement in her symptoms for the last several weeks. She be treated with a course of steroids. I will refer her to dermatology if not improving. Discharge Plan Triage Chief Complaint: Rash ED Provider: Josy Baca Dx/Rx/DC Orders Clinical Impression: Dermatitis Instructions: ED Erythema Prescriptions: New prednisone 20 mg tablet 40 mg PO DAILY Qty: 8 RF: 0 No Action insulin lispro [Humalog U-100 Insulin] 100 unit/mL solution 1 sliding scale dose SC USEASDIRECTD 30 Days Qty: 10 RF: 12 lisinopril 20 mg tablet 30 mg PO DAILY 90 Days Qty: 135 RF: 3 levothyroxine 50 mcg tablet 50 mcg PO DAILY Qty: 90 RF: 3 promethazine 12.5 mg tablet 12.5 mg PO TID PRN (Reason: nausea and vomiting) Qty: 45 RF: 1 amoxicillin-pot clavulanate 1 EACH tablet 1 ea PO BID RF: 0 Basaglar KwikPen U-100 Insulin 100 unit/mL (3 mL) insulin pen 62 unit SC DAILY 90 Days Qty: 55.8 RF: 3 Primary Care Provider: Ayaka Tsai NP Referrals: Emily Laguerre MD [NON-STAFF] - 1 Week if not improving Ayaka Tsai NP, [employer] RE[employer]ER-C [Primary Care Provider] - Disposition Disposition: Home, Self Care
[2021-06-09 15:07] VITALS: RESP 16
[2021-06-09] MEDS: predniSONE 20 MG Tablet 60 MG PO (15:09)
== END 2021-06-09 15:14 | disposition home or self-care (01) ==
LOC: ED 15:04
PROVIDERS: Emergency Provider Emergency Medicine; PCP Nurse Practitioner
DX: L30.9 Dermatitis, unspecified (principal)
CPT/HCPCS: 99282

== ENCOUNTER 2021-10-26 10:58 | Emergency (ER) | payer SELFPAY ==
[2021-10-26 10:59] VITALS: BP 139/88; PULSE 116; RESP 18; TEMP 35.8; O2SAT 100; BMI 41.5
--- NOTE | 2021-10-26 11:08 | EKG12_ITS ---
Test Reason : CP Blood Pressure : / mmHG Vent. Rate : 116 BPM Atrial Rate : 326 BPM P-R Int : 000 ms QRS Dur : 090 ms QT Int : 340 ms P-R-T Axes : 035 045 009 degrees QTc Int : 472 ms Sinus tachycardia Nonspecific [address] and T wave abnormality Confirmed by TIMOTHY RODGERS, RENATA ([id number]), supervising editor trailer TERESA BUTTS ([id number]) on 10/31/2021 11:16:47 AM Referred By: NAOMI Confirmed By:RENATA AGUIRRE MD
--- NOTE | 2021-10-26 11:09 | EX.ED.DYSGE1 ---
HPI History of Present Illness Chief Complaint: Chest Pain Detail of Chief Complaint: Chest pain, cough, hemoptysis Informant: patient Onset/Context/Timing Onset: Weeks Current Severity: Mild Maximum Severity: Moderate Narrative Narrative: Patient presents secondary to concerns for hemoptysis. Patient had COVID in late August. Since that time she states she continues to feel short of breath with a burning sensation in her chest. She states she usually coughs up yellow-colored sputum but today had blood noted in the sputum. No fever or chills. She is diabetic but states her blood sugars have been good. She denies leg pain or swelling. She does report a family history of blood clots. [facility] Medical History (Updated 10/26/21 @ 12:[address] Josy Baca MD) Anxiety and depression Dyslipidemia (high LDL; low HDL) Hypertension Hypothyroidism type 1.5 DM Home Medications insulin lispro 100 unit/mL subcutaneous solution 1 sliding scale dose SC USEASDIRECTD 30 Days #10 ml 01/07/20 [Rx Last Taken Unknown] levothyroxine 50 mcg tablet 50 mcg PO DAILY #90 tab 02/08/20 [Rx Last Taken Unknown] lisinopril 20 mg tablet 30 mg PO DAILY 90 Days #135 tab 02/08/20 [Rx Last Taken Unknown] insulin glargine 100 unit/mL (3 mL) subcutaneous pen 62 unit SC DAILY 90 Days #55.8 ml 02/14/20 [Rx Last Taken Unknown] amoxicillin-pot clavulanate 1 ea PO BID 12/08/20 [History Last Taken Unknown] promethazine 12.5 mg tablet 12.5 mg PO TID PRN #45 tab 12/08/20 [Rx Last Taken Unknown] prednisone 40 mg PO DAILY #8 tab 06/09/21 [Rx Last Taken Unknown] azithromycin 250 mg PO DAILY 4 Days #4 tab 10/26/21 [Rx Last Taken Unknown] Allergy/AdvReac Type Severity Reaction Status Date / Time No Known Allergies Allergy Verified 06/09/21 14:09 Family History Other CVA (cerebral vascular accident) Diabetes Heart disease Hypertension Surgical History History of tonsillectomy Hx of tympanostomy tubes Social History Smoking Status: Never smoker ROS ROS ED Constitutional Constitutional ED: Denies chills or fever(s) Eyes Eyes: Denies change in vision ENT ENT ED: Denies sore throat Cardiovascular Cardiovascular: Reports chest pain Respiratory/Chest Respiratory/Chest: Reports cough, dyspnea and sputum Gastrointestinal Gastrointestinal: Denies abdominal pain, diarrhea, nausea or vomiting Genitourinary Genitourinary ED: Denies dysuria Musculoskeletal Musculoskeletal: Denies back pain Integumentary Denies rash Neurologic Neurologic: Denies headache(s) or weakness Allergic/Immunologic Allergic/Immunologic ED: Denies urticaria EXAM Physical Exam Const Vital Signs: 10/26/21 10:59 10/26/21 11:17 10/26/21 11:23 Temperature 96.4 F L Temperature Source Temporal Pulse Rate 116 H 113 H Respiratory Rate 18 18 Blood Pressure 139/88 H 120/71 Blood Pressure Mean 105 87 Pulse Ox 100 97 97 Oxygen Delivery Method Room Air Room Air Room Air Positive well nourished and well developed General Appearance ED: well developed HEENT Reports normocephalic and head/scalp atraumatic Eyes PERRL and EOMs intact bilaterally Neck supple Chest Wall inspection of chest normal and palpation of chest normal Resp normal respiratory effort and clear to auscultation bilaterally Cardio regular rhythm Rate: tachycardic GI non-tender Palpation: soft Extremity normal to inspection General Extremety ED: Negative for edema General Extremity: Negative for edema Neuro oriented x3 and no sensory deficits noted Sensorium / Orientation: alert Motor Exam: strength 5/5 throughout Psych mental status grossly normal Skin no rashes or lesions noted MDM MDM MDM Narrative Medical decision making narrative: Patient is given IV fluids. Lab work, EKG, chest x-ray obtained. Lab Data Attestation: I reviewed the patient's lab results. Labs: Laboratory Results - last 24 hr 10/26/21 10/26/21 10/26/21 11:15 11:15 11:15 WBC 10.3 RBC 4.61 Hgb 12.8 Hct 37.9 MCV 82.2 MCH 27.8 MCHC 33.8 RDW Std Deviation 36.9 RDW Coeff of Jose Roberto 12.3 Plt Count 406 MPV 9.3 Immature Gran % (Auto) 0.700 Neut % (Auto) 74.1 H Lymph % (Auto) 18.1 L Foard % (Auto) 5.1 Eos % (Auto) 1.1 Baso % (Auto) 0.9 Absolute Neuts (auto) 7.7 Absolute Lymphs (auto) 1.87 Nucleated RBC % 0 D-Dimer Quant (PE/DVT) <= 0.27 Sodium 133 L Potassium 4.3 Chloride 99 Carbon Dioxide 26.0 Anion Gap 8 BUN 8 Creatinine 0.59 Estim Creat Clear Calc 112.86 Est GFR (MDRD) Af Amer 164 Est GFR (MDRD) Non-Af 136 BUN/Creatinine Ratio 13.7 Glucose 464 H* Calcium 9.4 Troponin I High Sens 15 Serum , Qual 10/26/21 11:15 WBC RBC Hgb Hct MCV MCH MCHC RDW Std Deviation RDW Coeff of Jose Roberto Plt Count MPV Immature Gran % (Auto) Neut % (Auto) Lymph % (Auto) Foard % (Auto) Eos % (Auto) Baso % (Auto) Absolute Neuts (auto) Absolute Lymphs (auto) Nucleated RBC % D-Dimer Quant (PE/DVT) Sodium Potassium Chloride Carbon Dioxide Anion Gap BUN Creatinine Estim Creat Clear Calc Est GFR (MDRD) Af Amer Est GFR (MDRD) Non-Af BUN/Creatinine Ratio Glucose Calcium Troponin I High Sens Serum , Qual NEGATIVE Radiography Chest X-Ray - ED: 1 View, Read by ED Physician, Normal, Heart, Lungs and Mediastinum Diagnostic Testing: Clinical Impression(s) from Imaging Studies Chest X-Ray 10/26/21 11:26 IMPRESSION: Normal x-ray examination of the chest. Electronically Signed: Claude Chauhan MD at 11:50 EST , Service support , EKG Initial EKG: Attestation: I personally reviewed and interpreted this EKG as follows: Interpretation: Sinus Tachycardia (Sinus tach at 116 with no acute ischemia) Treatment and Re-Evaluation Comments:: Repeat evaluation patient resting comfortably. Lab work reviewed with her. Troponin and D-dimer both unremarkable. Blood sugar is elevated at 464. She states has been getting blood sugars in the two hundreds at home. She will be given 8 units of insulin as well as the remainder of the liter IV fluids. Because patient is continuing to have cough with colored sputum I will cover her with a course of Zithromax for bronchitis. First dose given here and prescription sent to her pharmacy for her. Discharge Plan Triage Chief Complaint: Chest Pain ED Provider: Josy Baca Dx/Rx/DC Orders Clinical Impression: Bronchitis, Hyperglycemia Instructions: Acute Bronchitis, ED Diabetic Hyperglycemia Prescriptions: New azithromycin 250 mg tablet 250 mg PO DAILY 4 Days Qty: 4 RF: 0 No Action insulin lispro [Humalog U-100 Insulin] 100 unit/mL solution 1 sliding scale dose SC USEASDIRECTD 30 Days Qty: 10 RF: 12 lisinopril 20 mg tablet 30 mg PO DAILY 90 Days Qty: 135 RF: 3 levothyroxine 50 mcg tablet 50 mcg PO DAILY Qty: 90 RF: 3 promethazine 12.5 mg tablet 12.5 mg PO TID PRN (Reason: nausea and vomiting) Qty: 45 RF: 1 amoxicillin-pot clavulanate 1 EACH tablet 1 ea PO BID RF: 0 prednisone 20 mg tablet 40 mg PO DAILY Qty: 8 RF: 0 Basaglar KwikPen U-100 Insulin 100 unit/mL (3 mL) insulin pen 62 unit SC DAILY 90 Days Qty: 55.8 RF: 3 Primary Care Provider: Ayaka Tsai NP Referrals: Ayaka Tsai NP, RECORDS MANAGEMENT MANAGER-C [Primary Care Provider] - 1 Week Disposition Disposition: Home, Self Care
[2021-10-26 11:17] VITALS: O2SAT 97
[2021-10-26] MEDS: 0.9% Normal Saline 1,000 ML 150 ML IV (11:18)
[2021-10-26 11:23] VITALS: BP 120/71; PULSE 113; RESP 18; O2SAT 97
[2021-10-26 11:25] LABS: Absolute Lymphocyte Count 1.87 X10^3/uL (0.83-4.51); Absolute Neutrophil Count 7.7 X10^3/uL (2.0-7.7); Basophil# 0.09 X10^3/uL; Basophil% 0.9 % (0-1); Eosinophil# 0.11 X10^3/uL; Eosinophils% 1.1 % (0-5); Hematocrit 37.9 % (37-47); Hemoglobin 12.8 g/dL (12.0-15.0); Lymphocyte # 1.87 X10^3/ul (0.83-4.51); Lymphocyte % 18.1 % (19-41); Mean Corp Hgb Conc 33.8 g/dL (32-36); Mean Corpuscular Hgb 27.8 pg (27.0-32.0); Mean Corpuscular Volume 82.2 fL (81-99); Mean Platelet Vol. 9.3 fl (6.2-12.0); Monocyte# 0.53 X10^3/uL; Monocyte% 5.1 % (0-10); NRBC Flagged by Analyzer 0 % (0-5); Neutrophil # 7.66 X10^3/uL (2.7-7.7); Neutrophil % 74.1 % (47-70); Platelet Count 406 K/mm3 (150-450); RBC Distribution Width CV 12.3 % (11.6-14.6); RBC Distribution Width SD 36.9 fl (35.1-43.9); Red Blood Count 4.61 M/mm3 (4.2-5.4); White Blood Count 10.3 K/mm3 (4.4-11.0)
--- NOTE | 2021-10-26 11:26 | RAD_ITS ---
STUDY: X-RAY CHEST REASON FOR EXAM: Female, 21 years old. Chest pain TECHNIQUE: Single AP portable view of the chest. COMPARISON: Comparison is made with prior study dated 11/04/2019. FINDINGS: EKG electrodes are seen. The lungs are clear and expanded. There is no demonstrated pleural abnormality. Normal size heart. Normal mediastinum and wojciech. Normal visualized pulmonary arteries. Normal visualized aortic arch and descending thoracic aorta. Normal visualized thoracic spine. Normal visualized ribs, clavicles, and shoulders. There is no demonstrated abnormality of the visualized soft tissue structures of the upper abdomen. RAD/Chest 1 View (Portable) IMPRESSION: Normal x-ray examination of the chest. Electronically Signed: Claude Chauhan MD at 11:50 EST , Service support ,
[2021-10-26 11:35] LABS: D-Dimer Quantitative (DVT/PE) <= 0.27 FEU/ug/m (0.27-0.49)
[2021-10-26 11:49] LABS: Internal QC Validated? YES +Cl - CLEAR BKGD; Pregnancy, Serum, hCG Quali. NEGATIVE Negative
[2021-10-26 12:04] LABS: Anion Gap 8 (5-15); BUN 8 mg/dL (7-18); BUN/Creat Ratio 13.7 RATIO (10-20); Calcium,Total 9.4 mg/dL (8.5-10.1); Chloride 99 mmol/L (98-107); Creatinine, Serum 0.59 mg/dL (0.55-1.02); EST Glomerular Filtration Rate 136 mL/min (>60); Est Glom Filt Rate - Afr Amer 164 mL/min (>60); Estimated Creatinine Clearance 112.86 ml/min; Glucose 464 mg/dL (74-106); Potassium 4.3 mmol/L (3.5-5.1); Sodium Level 133 mmol/L (136-145); Troponin-I HS 15 pg/mL (3.0-54.0)
[2021-10-26] MEDS: 0.9% Normal Saline 1,000 ML 999 ML IV (13:23)
[2021-10-26] MEDS: Azithromycin 250 MG Tablet 500 MG PO (14:01)
[2021-10-26] MEDS: Insulin Lispro 100 UNIT/ML INSULN.PEN 8 UNIT SC (14:01)
[2021-10-26 14:06] VITALS: BP 123/77; PULSE 106; RESP 15; O2SAT 100
[2021-10-26 14:15] LABS: Bedside Glucose 174 mg/dL (70-110)
== END 2021-10-26 14:37 | disposition home or self-care (01) ==
PROVIDERS: Emergency Provider Emergency Medicine; PCP Nurse Practitioner; Visit Provider Emergency Medicine
DX: J40 Bronchitis, not specified as acute or chronic (principal); E13.65 Other specified diabetes mellitus with hyperglycemia
CPT/HCPCS: 71045; 80048; 82962; 84484; 84703; 85025; 85379; 93005; 99285; J7030

== ENCOUNTER 2022-02-05 08:01 | Inpatient (IN) | payer SELFPAY ==
[2022-02-05] VITALS (21 sets, daily range): BP systolic 103–140; BP diastolic 63–90; PULSE 97–120; RESP 13–21; TEMP 36.4–36.6; O2SAT 97–100; BMI 34.4; BMI 36.1
--- NOTE | 2022-02-05 08:19 | EKG12_ITS ---
Test Reason : Blood Pressure : / mmHG Vent. Rate : 107 BPM Atrial Rate : 107 BPM P-R Int : 136 ms QRS Dur : 098 ms QT Int : 330 ms P-R-T Axes : 063 070 036 degrees QTc Int : 440 ms Sinus tachycardia Nonspecific T wave abnormality Abnormal ECG Confirmed by TIMOTHY RODGERS, RENATA ([id number]), communications editor TERESA BUTTS ([id number]) on 02/06/2022 8:45:02 AM Referred By: KENDALL Confirmed By:RENATA AGUIRRE MD
--- NOTE | 2022-02-05 08:20 | EDS_ITS ---
HPI History of Present Illness Chief Complaint: General Illness Informant: patient Narrative Narrative: Patient is a 22-year-old female with history of type 1 diabetes mellitus and DKA presenting with concerns for dehydration and ketosis. Patient states she started feeling poorly around 10 PM last night. She has been having nausea and vomiting. To take Dramamine with no relief. States she has an ache in her stomach from throwing up. Has mild shortness of breath. Denies any urinary symptoms. States her bowel moods been normal. Denies any fever. Notes she was around her sister's children recently who have been sick. Denies any cold-like symptoms. Took her blood sugar this morning around 530 or 6 AM and it was 136. Patient does not have an insulin pump. Patient states that this feels like when her ketones are elevated. Did not check her ketones at home. No other complaints at this time. Prior similar symptoms: Yes [facility] Medical History Anxiety and depression Dyslipidemia (high LDL; low HDL) Hypertension Hypothyroidism type 1.5 DM Home Medications insulin lispro 100 unit/mL subcutaneous solution 1 sliding scale dose SC USEASDIRECTD 30 Days #10 ml 01/07/20 [Rx Last Taken Unknown] levothyroxine 50 mcg tablet 50 mcg PO DAILY #90 tab 02/08/20 [Rx Last Taken Unknown] lisinopril 20 mg tablet 30 mg PO DAILY 90 Days #135 tab 02/08/20 [Rx Last Taken Unknown] insulin glargine 100 unit/mL (3 mL) subcutaneous pen 62 unit SC DAILY 90 Days #55.8 ml 02/14/20 [Rx Last Taken Unknown] amoxicillin-pot clavulanate 1 ea PO BID 12/08/20 [History Last Taken Unknown] promethazine 12.5 mg tablet 12.5 mg PO TID PRN #45 tab 12/08/20 [Rx Last Taken Unknown] prednisone 40 mg PO DAILY #8 tab 06/09/21 [Rx Last Taken Unknown] azithromycin 250 mg PO DAILY 4 Days #4 tab 10/26/21 [Rx Last Taken Unknown] Allergy/AdvReac Type Severity Reaction Status Date / Time No Known Allergies Allergy Verified 02/05/22 08:03 Family History Other CVA (cerebral vascular accident) Diabetes Heart disease Hypertension Surgical History History of tonsillectomy Hx of tympanostomy tubes Social History Smoking Status: Never smoker ROS ROS ED Constitutional Constitutional ED: Denies chills or fever(s) Eyes Eyes: Denies blurry vision or change in vision ENT ENT ED: Denies rhinorrhea or sore throat Cardiovascular Cardiovascular: Denies chest pain Respiratory/Chest Respiratory/Chest: Reports dyspnea; Denies cough or dyspnea on exertion Gastrointestinal Gastrointestinal: Reports nausea and vomiting; Denies abdominal pain, constipation or diarrhea Genitourinary Genitourinary ED: Denies dysuria, hematuria or urinary frequency Musculoskeletal Musculoskeletal: Denies arthralgias or myalgias Integumentary Denies rash Neurologic Neurologic: Denies headache(s) or weakness Psychiatric Psychiatric: Denies depression EXAM Physical Exam Const Vital Signs: 02/05/22 08:03 02/05/22 08:44 02/05/22 09:41 Temperature 97.6 F L Temperature Source Temporal Pulse Rate 120 H 102 H Respiratory Rate 18 14 Respiratory Effort Normal Non-Labored Respiratory Pattern Normal Blood Pressure 122/90 H 103/65 Blood Pressure Mean 100 77 Pulse Ox 100 98 Oxygen Delivery Method Room Air Room Air Positive well nourished and well developed General Appearance ED: well developed and NAD HEENT Reports dry mucous membranes Negative for trauma Mouth ED: Yes dry mucous membranes Mouth: dry mucous membranes Eyes PERRL and EOMs intact bilaterally Neck supple and no JVD Chest Wall inspection of chest normal Resp normal respiratory effort and clear to auscultation bilaterally Cardio regular rhythm and no murmurs Rate: tachycardic GI normal to inspection, nondistended, normoactive bowel sounds and non-tender Palpation: soft Extremity normal to inspection Neuro oriented x3 and no sensory deficits noted Sensorium / Orientation: alert Motor Exam: strength 5/5 throughout and general weakness Psych mental status grossly normal Skin no rashes or lesions noted MDM MDM MDM Narrative Medical decision making narrative: Patient is evaluated for concerns of elevated ketones, nausea and vomiting. She appears nontoxic but dehydrated. She is tachycardic on arrival. He is given 2 L IV fluids. Acetones are moderate. Patient has decreased bicarb of 16 and an anion gap of 16. Patient's pH is 7.28 on VBG consistent with a metabolic acidosis. Patient will be admitted for management of DKA and started on insulin drip. She is excepted to the ICU. On repeat fingerstick blood glucose prior to start of insulin drip her blood sugar is now 163. Potassium was 4.1. Patient is ordered IV potassium before insulin is started. She is switched to D5 half-normal saline as her blood sugar is decreasing before her anion gap is. Lab Data Attestation: I reviewed the patient's lab results. Labs: Laboratory Results - last 24 hr 02/05/22 02/05/22 02/05/22 08:30 08:30 08:30 WBC 10.6 RBC 4.80 Hgb 13.8 Hct 42.2 MCV 87.9 MCH 28.8 MCHC 32.7 RDW Std Deviation 41.2 RDW Coeff of Jose Roberto 12.9 Plt Count 388 MPV 9.2 Immature Gran % (Auto) 0.900 Neut % (Auto) 74.0 H Lymph % (Auto) 19.0 [place] % (Auto) 4.7 Eos % (Auto) 0.4 Baso % (Auto) 1.0 Absolute Neuts (auto) 7.8 H Absolute Lymphs (auto) 2.01 Nucleated RBC % 0 Sodium 135 L Potassium 4.1 Chloride 103 Carbon Dioxide 16.0 L Anion Gap 16 H BUN 9 Creatinine 0.81 Estim Creat Clear Calc 85.43 Est GFR (MDRD) Af Amer 112 Est GFR (MDRD) Non-Af 93 BUN/Creatinine Ratio 11.1 Glucose 343 H Calcium 9.2 Magnesium 2.1 Total Bilirubin 0.50 AST 7 L ALT 17 Alkaline Phosphatase 158 H Total Protein 8.0 Albumin 3.2 Globulin 4.8 H Albumin/Globulin Ratio 0.7 L Serum , Qual Acetone Level MODERATE H 02/05/22 08:30 WBC RBC Hgb Hct MCV MCH MCHC RDW Std Deviation RDW Coeff of Jose Roberto Plt Count MPV Immature Gran % (Auto) Neut % (Auto) Lymph % (Auto) [place] % (Auto) Eos % (Auto) Baso % (Auto) Absolute Neuts (auto) Absolute Lymphs (auto) Nucleated RBC % Sodium Potassium Chloride Carbon Dioxide Anion Gap BUN Creatinine Estim Creat Clear Calc Est GFR (MDRD) Af Amer Est GFR (MDRD) Non-Af BUN/Creatinine Ratio Glucose Calcium Magnesium Total Bilirubin AST ALT Alkaline Phosphatase Total Protein Albumin Globulin Albumin/Globulin Ratio Serum , Qual NEGATIVE Acetone Level ABG Data ABG results: ABG 02/05/22 09:29 Specimen Type MICHAEL VBG pH 7.28 L VBG pO2 78 H VBG HCO3 15 L VBG Total CO2 16 L VBG O2 Sat (Calc) 94 H VBG Base Excess -12 L POC Mix VBG pCO2 Pt Tmp 31.7 L Critical Care Time Critical Care Time: Yes Critical care time (excluding procedures): 30-74 minutes, Including time spent: (35), Discussing w/Patient &/or Family/Director Weights And Measures, Arranging Admission or Transfer and Performing Direct Patient Care at Bedside Discharge Plan Triage Chief Complaint: General Illness ED Provider: Gisel Pruitt Dx/Rx/DC Orders Clinical Impression: DKA (diabetic ketoacidosis), Type 1 diabetes, uncontrolled, with gastroparesis Primary Care Provider: Ayaka Tsai [employer]AT KNITTER HELPER Disposition Disposition: Acute Care [facility]
[2022-02-05 08:42] LABS: Absolute Lymphocyte Count 2.01 X10^3/uL (0.83-4.51); Absolute Neutrophil Count 7.8 X10^3/uL (2.0-7.7); Basophil# 0.11 X10^3/uL; Eosinophil# 0.04 X10^3/uL; Eosinophils% 0.4 % (0-5); Hematocrit 42.2 % (37-47); Hemoglobin 13.8 g/dL (12.0-15.0); Lymphocyte # 2.01 X10^3/ul (0.83-4.51); Mean Corp Hgb Conc 32.7 g/dL (32-36); Mean Corpuscular Hgb 28.8 pg (27.0-32.0); Mean Corpuscular Volume 87.9 fL (81-99); Mean Platelet Vol. 9.2 fl (6.2-12.0); Monocyte% 4.7 % (0-10); NRBC Flagged by Analyzer 0 % (0-5); Neutrophil # 7.82 X10^3/uL (2.7-7.7); Platelet Count 388 K/mm3 (150-450); RBC Distribution Width CV 12.9 % (11.6-14.6); RBC Distribution Width SD 41.2 fl (35.1-43.9); White Blood Count 10.6 K/mm3 (4.4-11.0)
[2022-02-05] MEDS: Ondansetron 4 MG/2 ML Vial IV ×2 (08:53→15:57)
[2022-02-05] MEDS: 0.9% Normal Saline 1,000 ML 999 ML IV ×2 (08:53→09:40)
[2022-02-05 08:59] LABS: ALB/GLOB Ratio 0.7 RATIO (0.9-2.4); AST(SGOT) 7 U/L (15-37); Alanine Aminotransfer ALT/SGPT 17 U/L (13-56); Albumin, Serum 3.2 g/dL (3.2-5.0); Alkaline Phosphatase 158 U/L (45-117); Anion Gap 16 (5-15); BUN 9 mg/dL (7-18); BUN/Creat Ratio 11.1 RATIO (10-20); Calcium,Total 9.2 mg/dL (8.5-10.1); Chloride 103 mmol/L (98-107); Creatinine, Serum 0.81 mg/dL (0.55-1.02); EST Glomerular Filtration Rate 93 mL/min (>60); Est Glom Filt Rate - Afr Amer 112 mL/min (>60); Estimated Creatinine Clearance 85.43 ml/min; Globulin 4.8 g/dL (2.2-4.2); Glucose 343 mg/dL (74-106); Magnesium 2.1 mg/dL (1.6-2.6); Potassium 4.1 mmol/L (3.5-5.1); Sodium Level 135 mmol/L (136-145)
[2022-02-05 09:05] LABS: Internal QC Validated? YES +Cl - CLEAR BKGD
[2022-02-05 09:07] LABS: Pregnancy, Serum, hCG Quali. NEGATIVE Negative
[2022-02-05 09:35] LABS: Blood Gas Specimen Type VEN; VBG BASE EXCESS -12 mmol/L (-1.0-3.5); VBG Bicarbonate 15 mmol/L (22-26); VBG PO2 78 mmHg (25-40); VBG SO2 94 % (50-70); VBG TCO2 16 mmol/L (23-33); VBG pCO2 31.7 mmHg (41-51); VBG pH 7.28 (7.32-7.42)
--- NOTE | 2022-02-05 10:03 | PCM.HP.STD ---
HPI - General General Date of Admission: 02/05/22 HPI Narrative SANTIAGO JACOBSEN, is a 22 F who presents nausea. Patient symptoms started around 11 PM a day prior to her admission. She has history of diabetes mellitus type 1.5. She did check her blood glucose on the morning of her presentation was noted to be 136. She presented to the emergency department due to the persistent nature of her symptoms. On further questioning patient denied any fever no chills. Denied any cough. Denied any frequency no dysuria. In the emergency department and assessment of diabetic ketoacidosis was made based on patient initial diagnostic work-up. Started on IV fluid as well as systemic insulin admitted to the intensive care unit for further management [facility] Medical History Anxiety and depression Dyslipidemia (high LDL; low HDL) Hypertension Hypothyroidism type 1.5 DM Home Medications insulin lispro 100 unit/mL subcutaneous solution 1 sliding scale dose SC USEASDIRECTD 30 Days #10 ml 01/07/20 [Rx Last Taken Unknown] levothyroxine 50 mcg tablet 50 mcg PO DAILY #90 tab 02/08/20 [Rx Last Taken Unknown] lisinopril 20 mg tablet 30 mg PO DAILY 90 Days #135 tab 02/08/20 [Rx Last Taken Unknown] insulin glargine 100 unit/mL (3 mL) subcutaneous pen 62 unit SC DAILY 90 Days #55.8 ml 02/14/20 [Rx Last Taken Unknown] amoxicillin-pot clavulanate 1 ea PO BID 12/08/20 [History Last Taken Unknown] promethazine 12.5 mg tablet 12.5 mg PO TID PRN #45 tab 12/08/20 [Rx Last Taken Unknown] prednisone 40 mg PO DAILY #8 tab 06/09/21 [Rx Last Taken Unknown] azithromycin 250 mg PO DAILY 4 Days #4 tab 10/26/21 [Rx Last Taken Unknown] Allergy/AdvReac Type Severity Reaction Status Date / Time No Known Allergies Allergy Verified 02/05/22 08:03 Family History Other CVA (cerebral vascular accident) Diabetes Heart disease Hypertension Surgical History History of tonsillectomy Hx of tympanostomy tubes Social History Smoking Status: Never smoker ROS ROS Narrative GENERAL: denies fever, chills, night sweats, weight loss, anorexia HEENT: denies headache, sinus congestion, or drainage, dysphagia RESPIRATORY: denies cough, sputum production, shortness of breath, dyspnea on exertion CARDIAC: denies chest pain, palpitations, orthopnea, PND GASTROINTESTINAL: denies abdominal pain, , melena, GENITOURINARY: denies dysuria, urgency, frequency, heamaturia EXTREMITY: denies swelling MUSCULOSKELETAL: denies current joint pain or tenderness NEUROLOGIC: denies focal numbness, weakness, tingling HEMATOLOGIC: denies easy bruising and/or hemorrhage INTEGUMENT: denies rashes PSYCHIATRIC: denies suicidal or homicidal ideation Vital Signs Vital Signs Vital Signs: 02/05/22 08:03 02/05/22 08:44 02/05/22 09:41 Temperature 97.6 F L Temperature Source Temporal Pulse Rate 120 H 102 H Respiratory Rate 18 14 Respiratory Effort Normal Non-Labored Respiratory Pattern Normal Blood Pressure 122/90 H 103/65 Blood Pressure Mean 100 77 Pulse Ox 100 98 Oxygen Delivery Method Room Air Room Air Weight Weight: 85.5 kg Body Mass Index (BMI) 34.4 Physical Exam Narrative GENERAL: cooperative HEENT: Atraumatic; EYES; Anicteric, Normal Conjunctiva NECK; supple, normal thyroid, RESPIRATORY: Diminished to auscultation CARDIOVASCULAR: Regular S1 S2, tachycardic GI: soft, normoactive bowel sounds, : No Renal angle tenderness; EXTREMITIES: No edema, no clubbing, MUSCULOSKELETAL: no muscle waisting NEURO: Awake; no lateralizing signs. SKIN: Fresh tattoo on the PSYCH; Flat affect Results Lab / Micro Data Result Diagrams: 02/05/22 08:30 02/05/22 08:30 Labs: Laboratory Results - last 24 hr 02/05/22 08:30: WBC 10.6, RBC 4.80, Hgb 13.8, Hct 42.2, MCV 87.9, MCH 28.8, MCHC 32.7, RDW Std Deviation 41.2, RDW Coeff of Jose Roberto 12.9, Plt Count 388, MPV 9.2, Immature Gran % (Auto) 0.900, Neut % (Auto) 74.0 H, Lymph % (Auto) 19.0, [place] % (Auto) 4.7, Eos % (Auto) 0.4, Baso % (Auto) 1.0, Absolute Neuts (auto) 7.8 H, Absolute Lymphs (auto) 2.01, Nucleated RBC % 0 02/05/22 08:30: Sodium 135 L, Potassium 4.1, Chloride 103, Carbon Dioxide 16.0 L, Anion Gap 16 H, BUN 9, Creatinine 0.81, Estim Creat Clear Calc 85.43, Est GFR (MDRD) Af Amer 112, Est GFR (MDRD) Non-Af 93, BUN/Creatinine Ratio 11.1, Glucose 343 H, Calcium 9.2, Magnesium 2.1, Total Bilirubin 0.50, AST 7 L, ALT 17, Alkaline Phosphatase 158 H, Total Protein 8.0, Albumin 3.2, Globulin 4.8 H, Albumin/Globulin Ratio 0.7 L 02/05/22 08:30: Acetone Level MODERATE H 02/05/22 08:30: Serum , Qual NEGATIVE ABG Data ABG results: ABG 02/05/22 09:29 Specimen Type MICHAEL VBG pH 7.28 L VBG pO2 78 H VBG HCO3 15 L VBG Total CO2 16 L VBG O2 Sat (Calc) 94 H VBG Base Excess -12 L POC Mix VBG pCO2 Pt Tmp 31.7 L Assessment & Plan Assessment/Plan (1) DKA (diabetic ketoacidoses): QUALIFIERS: Diabetes mellitus type: type 1 Diabetes mellitus complication detail: without coma Qualified Code(s): E10.10 - Type 1 diabetes mellitus with ketoacidosis without coma PLAN: Patient is a 22-year-old lady with past medical history signal for diabetes mellitus type 1.5 who presented with severe nausea found to be in DKA admitted to the intensive care unit for further management 1. Diabetic ketoacidosis ? Patient has been admitted to the intensive care unit managed with aggressive IV fluid resuscitation, systemic insulin with serial monitoring of electrolyte and correction of electrolyte abnormalities 2. Diabetes mellitus type 1.5 ? Patient presented with DKA management as described above plan is to resume patient home meds once her DKA resolved 3. Hypertension - Blood pressure controlled, home medications continued with dose adjustment as needed 4. Hypothyroidism - Patient is on levothyroxine home dose continued 5. Class I obesity with BMI of 34.5 ? Weight loss advised 6. DVT prophylaxis ? Low risk did encourage early ambulation Charges/Coding Visit Charges Inpatient E&M: 39967 Init Hosp L3
[2022-02-05 10:50] LABS: Bedside Glucose 164 mg/dL (74-106)
[2022-02-05] MEDS: Dext 5%-0.45% NS 1,000 ML 150 ML IV ×2 (11:41→18:15)
[2022-02-05] MEDS: Potassium Chloride 10mEq/100mL 10 MEQ/100 ML IV.SOLN. 100 MEQ IV BOLUS ×6 (11:49→19:59)
[2022-02-05 12:30] LABS: Bacteria 0 SEEN /hpf (None Seen); Mucous, Urine 0 SEEN /hpf (<or=2+); Red Blood Cells-Urine 0 SEEN /hpf (0-5)
[2022-02-05 12:33] LABS: Color, Urine Yellow (Yellow); Glucose, Dipstick 1000 mg/dl (Normal); Ketone-Dipstick 150 mg/dl (Negative); Leukocyte Esterase-Dipstick 500 /ul (Negative); Nitrite-Dipstick Negative (Negative); Occult Blood-Urine 10 /ul (Negative); Protein-Dipstick 30 mg/dl (Negative); Urine Bilirubin Dipstick Negative (Negative); Urine Clarity Sl. Cloudy (Clear); Urine Urobilinogen Normal (Normal)
[2022-02-05 12:38] LABS: White Blood Cells 10-25 SEEN /hpf (0-5)
[2022-02-05 12:39] LABS: Squamous Epithelial Cells - UA 0-5 SEEN /hpf (5-10)
[2022-02-05 14:26] LABS: Bedside Glucose 71 mg/dL (74-106)
[2022-02-05 14:26] LABS: Bedside Glucose 111 mg/dL (74-106)
[2022-02-05] MEDS: Dextrose 10%-Water 250 ML 999 ML IV (14:29)
[2022-02-05 14:47] LABS: Hemoglobin A1c 11.9 % (3.8-5.6)
[2022-02-05] MEDS: Ceftriaxone 1 GM/50 ML BAG IV (14:57)
[2022-02-05 15:43] LABS: Anion Gap 9 (5-15); BUN 5 mg/dL (7-18); BUN/Creat Ratio 9.9 RATIO (10-20); Calcium,Total 8.1 mg/dL (8.5-10.1); Chloride 110 mmol/L (98-107); Creatinine, Serum 0.51 mg/dL (0.55-1.02); EST Glomerular Filtration Rate 160 mL/min (>60); Est Glom Filt Rate - Afr Amer 194 mL/min (>60); Estimated Creatinine Clearance 129.46 ml/min; Glucose 121 mg/dL (74-106); Potassium 3.7 mmol/L (3.5-5.1); Sodium Level 138 mmol/L (136-145)
[2022-02-05] MEDS: 0.9% Saline Lock 10 ML Syringe IV (15:57)
[2022-02-05 16:15] LABS: Bedside Glucose 127 mg/dL (74-106)
[2022-02-05 16:15] LABS: Bedside Glucose 64 mg/dL (74-106)
[2022-02-05 16:15] LABS: Bedside Glucose 156 mg/dL (74-106)
[2022-02-05 18:11] LABS: Bedside Glucose 252 mg/dL (74-106)
[2022-02-05 18:11] LABS: Bedside Glucose 226 mg/dL (74-106)
[2022-02-05 19:05] LABS: Bedside Glucose 188 mg/dL (74-106)
[2022-02-05 19:30] LABS: Anion Gap 11 (5-15); BUN 4 mg/dL (7-18); BUN/Creat Ratio 6.5 RATIO (10-20); Calcium,Total 8.4 mg/dL (8.5-10.1); Chloride 108 mmol/L (98-107); Creatinine, Serum 0.61 mg/dL (0.55-1.02); EST Glomerular Filtration Rate 128 mL/min (>60); Est Glom Filt Rate - Afr Amer 155 mL/min (>60); Estimated Creatinine Clearance 108.24 ml/min; Glucose 191 mg/dL (74-106); Potassium 4.3 mmol/L (3.5-5.1); Sodium Level 136 mmol/L (136-145)
[2022-02-05] MEDS: Insulin Glargine-YFGN 100 UNIT/ML Pen 10 UNIT SC (21:02)
[2022-02-05 21:11] LABS: Bedside Glucose 99 mg/dL (74-106)
[2022-02-06] VITALS (23 sets, daily range): BP systolic 108–153; BP diastolic 65–105; PULSE 95–137; RESP 14–25; TEMP 36.2–36.7; O2SAT 99–100
[2022-02-06 00:26] LABS: Bedside Glucose 395 mg/dL (74-106)
[2022-02-06] MEDS: 0.9% Normal Saline 1,000 ML 100 ML IV ×2 (00:34→10:08)
[2022-02-06] MEDS: Insulin Lispro 100 UNIT/ML INSULN.PEN SC ×2 (00:36→06:29)
[2022-02-06 04:44] LABS: Absolute Lymphocyte Count 2.72 X10^3/uL (0.83-4.51); Absolute Neutrophil Count 5.6 X10^3/uL (2.0-7.7); Basophil% 1.1 % (0-1); Eosinophil# 0.09 X10^3/uL; Hematocrit 38.1 % (37-47); Hemoglobin 12.6 g/dL (12.0-15.0); Lymphocyte # 2.72 X10^3/ul (0.83-4.51); Lymphocyte % 30.1 % (19-41); Mean Corp Hgb Conc 33.1 g/dL (32-36); Mean Corpuscular Hgb 28.6 pg (27.0-32.0); Mean Corpuscular Volume 86.6 fL (81-99); Mean Platelet Vol. 9.3 fl (6.2-12.0); Monocyte# 0.45 X10^3/uL; NRBC Flagged by Analyzer 0 % (0-5); Neutrophil % 61.8 % (47-70); Platelet Count 342 K/mm3 (150-450); RBC Distribution Width SD 40.8 fl (35.1-43.9); White Blood Count 9.1 K/mm3 (4.4-11.0)
[2022-02-06 05:02] LABS: Anion Gap 13 (5-15); BUN 3 mg/dL (7-18); BUN/Creat Ratio 4.9 RATIO (10-20); Calcium,Total 8.4 mg/dL (8.5-10.1); Chloride 106 mmol/L (98-107); Creatinine, Serum 0.61 mg/dL (0.55-1.02); EST Glomerular Filtration Rate 129 mL/min (>60); Est Glom Filt Rate - Afr Amer 156 mL/min (>60); Estimated Creatinine Clearance 108.24 ml/min; Glucose 249 mg/dL (74-106); Magnesium 1.8 mg/dL (1.6-2.6); Phosphorus 2.4 mg/dL (2.5-4.9); Potassium 4.4 mmol/L (3.5-5.1); Sodium Level 135 mmol/L (136-145)
[2022-02-06] MEDS: Levothyroxine 50 MCG Tablet PO (06:29)
[2022-02-06] MEDS: Ondansetron 4 MG/2 ML Vial IV ×2 (06:45→16:04)
[2022-02-06 06:46] LABS: Bedside Glucose 352 mg/dL (74-106)
[2022-02-06] MEDS: 0.9% Saline Lock 10 ML Syringe IV (06:46)
--- NOTE | 2022-02-06 07:38 | PCM.PN.HOSP ---
Subjective Subjective Patient is a 22-year-old lady with past medical history signal for diabetes mellitus type 1.5 who presented with severe nausea found to be in DKA admitted to the intensive care unit for further management Patient was also found to have acute cystitis started on Rocephin cultures sent Objective Data Objective Data Vital Signs: Vital Signs Temp Pulse Resp BP Pulse Ox 98.0 F 100 15 114/65 100 02/06/22 00:00 02/06/22 06:00 02/06/22 06:00 02/06/22 06:00 02/06/22 06:00 Oxygen Delivery Method Room Air Weight: 86.7 kg Body Mass Index (BMI) 36.1 Intake & Output: Intake and Output for Last 24 Hours 02/04/22 02/05/22 02/06/22 23:59 23:59 23:59 Intake Total 4385.80 / 5185.80 1747.5 / 1747.5 Output Total 500 / 500 Balance 3885.80 / 4685.80 1747.5 / 1747.5 Lab / Micro Data Result Diagrams: 02/06/22 04:25 02/06/22 04:25 Labs: Laboratory Results - last 24 hr 02/05/22 08:30: WBC 10.6, RBC 4.80, Hgb 13.8, Hct 42.2, MCV 87.9, MCH 28.8, MCHC 32.7, RDW Std Deviation 41.2, RDW Coeff of Jose Roberto 12.9, Plt Count 388, MPV 9.2, Immature Gran % (Auto) 0.900, Neut % (Auto) 74.0 H, Lymph % (Auto) 19.0, [place] % (Auto) 4.7, Eos % (Auto) 0.4, Baso % (Auto) 1.0, Absolute Neuts (auto) 7.8 H, Absolute Lymphs (auto) 2.01, Nucleated RBC % 0 02/05/22 08:30: Sodium 135 L, Potassium 4.1, Chloride 103, Carbon Dioxide 16.0 L, Anion Gap 16 H, BUN 9, Creatinine 0.81, Estim Creat Clear Calc 85.43, Est GFR (MDRD) Af Amer 112, Est GFR (MDRD) Non-Af 93, BUN/Creatinine Ratio 11.1, Glucose 343 H, Calcium 9.2, Magnesium 2.1, Total Bilirubin 0.50, AST 7 L, ALT 17, Alkaline Phosphatase 158 H, Total Protein 8.0, Albumin 3.2, Globulin 4.8 H, Albumin/Globulin Ratio 0.7 L 02/05/22 08:30: Acetone Level MODERATE H 02/05/22 08:30: Serum , Qual NEGATIVE 02/05/22 08:30: Hemoglobin A1c 11.9 H 02/05/22 10:45: POC Glucose 164 H 02/05/22 12:20: Urine Color Yellow, Urine Clarity Sl. Cloudy, Urine pH 6.0, Ur Specific [place] 1.020, Urine Protein 30 H, Urine Glucose (UA) 1000 H, Urine Ketones 150 A*, Urine Occult Blood 10 H, Urine Nitrite Negative, Urine Bilirubin Negative, Urine Urobilinogen Normal, Ur Leukocyte Esterase 500 H, Urine RBC 0 SEEN, Urine WBC 10-25 SEEN, Ur Squamous Epith Cells 0-5 SEEN, Urine Bacteria 0 SEEN, Urine Mucus 0 SEEN 02/05/22 12:51: POC Glucose 111 H 02/05/22 13:50: POC Glucose 71 L 02/05/22 14:26: POC Glucose 64 L 02/05/22 14:55: POC Glucose 127 H 02/05/22 15:10: Sodium 138, Potassium 3.7, Chloride 110 H, Carbon Dioxide 19.0 L, Anion Gap 9, BUN 5 L, Creatinine 0.51 L, Estim Creat Clear Calc 129.46, Est GFR (MDRD) Af Amer 194, Est GFR (MDRD) Non-Af 160, BUN/Creatinine Ratio 9.9 L, Glucose 121 H, Calcium 8.1 L 02/05/22 15:51: POC Glucose 156 H 02/05/22 17:01: POC Glucose 226 H 02/05/22 18:00: POC Glucose 252 H 02/05/22 18:52: Sodium 136, Potassium 4.3, Chloride 108 H, Carbon Dioxide 17.0 L, Anion Gap 11, BUN 4 L, Creatinine 0.61, Estim Creat Clear Calc 108.24, Est GFR (MDRD) Af Amer 155, Est GFR (MDRD) Non-Af 128, BUN/Creatinine Ratio 6.5 L, Glucose 191 H, Calcium 8.4 L 02/05/22 18:53: POC Glucose 188 H 02/05/22 21:01: POC Glucose 99 02/06/22 00:22: POC Glucose 395 H 02/06/22 04:25: WBC 9.1, RBC 4.40, Hgb 12.6, Hct 38.1, MCV 86.6, MCH 28.6, MCHC 33.1, RDW Std Deviation 40.8, RDW Coeff of Jose Roberto 13.0, Plt Count 342, MPV 9.3, Immature Gran % (Auto) 1.000 H, Neut % (Auto) 61.8, Lymph % (Auto) 30.1, [place] % (Auto) 5.0, Eos % (Auto) 1.0, Baso % (Auto) 1.1 H, Absolute Neuts (auto) 5.6, Absolute Lymphs (auto) 2.72, Nucleated RBC % 0 02/06/22 04:25: Sodium 135 L, Potassium 4.4, Chloride 106, Carbon Dioxide 16.0 L, Anion Gap 13, BUN 3 L, Creatinine 0.61, Estim Creat Clear Calc 108.24, Est GFR (MDRD) Af Amer 156, Est GFR (MDRD) Non-Af 129, BUN/Creatinine Ratio 4.9 L, Glucose 249 H, Calcium 8.4 L, Phosphorus 2.4 L, Magnesium 1.8 02/06/22 06:30: POC Glucose 352 H ABG Data ABG results: ABG 02/05/22 09:29 Specimen Type MICHAEL VBG pH 7.28 L VBG pO2 78 H VBG HCO3 15 L VBG Total CO2 16 L VBG O2 Sat (Calc) 94 H VBG Base Excess -12 L POC Mix VBG pCO2 Pt Tmp 31.7 L Physical Exam Narrative GENERAL: cooperative HEENT: Atraumatic; EYES; Anicteric, Normal Conjunctiva NECK; supple, normal thyroid, RESPIRATORY: Diminished to auscultation CARDIOVASCULAR: Regular S1 S2, tachycardic GI: soft, normoactive bowel sounds, : No Renal angle tenderness; EXTREMITIES: No edema, no clubbing, MUSCULOSKELETAL: no muscle waisting NEURO: Awake; no lateralizing signs. SKIN: Fresh tattoo on the PSYCH; Flat affect Assessment & Plan Assessment/Plan (1) DKA (diabetic ketoacidoses): QUALIFIERS: Diabetes mellitus complication detail: without coma Diabetes mellitus type: type 1 Qualified Code(s): E10.10 - Type 1 diabetes mellitus with ketoacidosis without coma PLAN: Patient is a 22-year-old lady with past medical history signal for diabetes mellitus type 1.5 who presented with severe nausea found to be in DKA admitted to the intensive care unit for further management 1. Diabetic ketoacidosis ? Patient has been admitted to the intensive care unit managed with aggressive IV fluid resuscitation, systemic insulin with serial monitoring of electrolyte and correction of electrolyte abnormalities -02/06/2022; patient anion gap has closed still remains acidotic. Patient was started on clear liquids as well as long-acting insulin 2. Acute cystitis ? Patient was started on Rocephin cultures sent previous cultures had grown Proteus and E. coli 3. Diabetes mellitus type 1.5 ? Patient presented with DKA management as described above plan is to resume patient home meds once her DKA resolved ?02/06/2022. Patient home insulin regimen resumed 4. Hypertension - Blood pressure controlled, home medications continued with dose adjustment as needed 5. Hypothyroidism - Patient is on levothyroxine home dose continued 7. Class I obesity with BMI of 34.5 ? Weight loss advised 8. DVT prophylaxis ? Low risk did encourage early ambulation Charges/Coding Visit Charges Inpatient E&M: 14848 [facility] Hosp L3
[2022-02-06] MEDS: proMETHazine 25 MG/ML Syringe IM ×2 (08:10→19:42)
[2022-02-06] MEDS: Ceftriaxone 1 GM/50 ML BAG IV (09:19)
[2022-02-06] MEDS: Insulin Glargine-YFGN 100 UNIT/ML Pen 25 UNIT SC (09:21)
[2022-02-06] MEDS: Acetaminophen 325 MG Tablet 650 MG PO (10:07)
--- NOTE | 2022-02-06 10:10 | CASEMGMT ---
RN CM DEPARTMENT STORE SALESPERSON CM to room to meet with patient for initial transition planning/care coordination assessment. RN SHERIE introduced self and role at [facility]. Pt voices understanding and consents to assessment at this time. Pt resting in bed in no distress at this time. Pt is A/O at this time and answers all questions, but vague w/most responses w/yes and no answers. Care providers, pharmacy, and demographics verified/updated at this time. PCP: Ayaka Tsai NP, in [place] Specialists: None. (Used to see furniture assembly supervisor in [place], Dr Lazaro, but states no longer goes there) Preferred Pharmacy: [facility] [place] Insurance: No insurance. Works full-time @ [employer]. States has worked there for 3 1/2 yrs but quit and started again and is currently Waiting for 6-months to get insurance again but states does not know how close she is to that time. Prescription Benefit: None Living Will/HPOA: Pt does not currently have LW/HCPOA and declines info at this time. LNOK: Parents, Katherin and Dick Living Arrangements: Lives w/parents. Independent. Transportation: Pt states drives self and states no transportation concerns at this time. DME: Uses no DME to ambulate. States has all insulin and diabetic supplies needed. RN SHERIE inquired, if she runs out of insulin or supplies, what her plan is to obtain more. Pt stated, I don't think I'll run out. Pt wishes to return home and states has no concerns with going home at time of discharge. CM to follow for any discharge planning/needs. Pt voices no concerns/needs at this time. Advised pt to ask for CM if any questions/concerns/needs arise. Voices understanding. PLAN: Home w/family support and discharge plans in place. Jo-Ann AGUILLON RN, CM
--- NOTE | 2022-02-06 11:11 | CASEMGMT ---
Social Work Pt currently hospitalized and has no health insurance. SW met with pt to discuss financial resources. Pt denies any financial concerns at this time. 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 SW provided written resources on prescription assistance, [place] [employer] information, [employer], [employer], and Medicaid application. Pt denies any further needs. NICO Adrian
[2022-02-06 11:31] LABS: Bedside Glucose 474 mg/dL (74-106)
[2022-02-06] MEDS: Insulin Glargine-YFGN 100 UNIT/ML Pen 20 UNIT SC (11:53)
[2022-02-06] MEDS: Insulin Lispro 100 UNIT/ML INSULN.PEN 10 UNIT SC (11:54)
[2022-02-06 14:29] LABS: Anion Gap 24 (5-15); BUN 7 mg/dL (7-18); Calcium,Total 8.8 mg/dL (8.5-10.1); Chloride 107 mmol/L (98-107); Creatinine, Serum 0.88 mg/dL (0.55-1.02); EST Glomerular Filtration Rate 85 mL/min (>60); Est Glom Filt Rate - Afr Amer 103 mL/min (>60); Estimated Creatinine Clearance 75.03 ml/min; Glucose 345 mg/dL (74-106); Potassium 4.5 mmol/L (3.5-5.1); Sodium Level 138 mmol/L (136-145)
[2022-02-06] MEDS: 0.9% Normal Saline 1,000 ML 999 ML IV (14:52)
[2022-02-06 14:56] LABS: Bedside Glucose 359 mg/dL (74-106)
[2022-02-06] MEDS: 0.9% Normal Saline 1,000 ML 500 ML IV (16:00)
[2022-02-06] MEDS: Dext 5%-0.45% NS 1,000 ML 150 ML IV (17:59)
[2022-02-06 18:06] LABS: Bedside Glucose 269 mg/dL (74-106)
[2022-02-06 18:06] LABS: Bedside Glucose 158 mg/dL (74-106)
[2022-02-06 18:22] LABS: Magnesium 2.3 mg/dL (1.6-2.6)
[2022-02-06 19:11] LABS: Bedside Glucose 91 mg/dL (74-106)
[2022-02-06 19:11] LABS: Bedside Glucose 78 mg/dL (74-106)
[2022-02-06 20:30] LABS: Anion Gap 12 (5-15); BUN 5 mg/dL (7-18); Calcium,Total 8.7 mg/dL (8.5-10.1); Chloride 115 mmol/L (98-107); Creatinine, Serum 0.72 mg/dL (0.55-1.02); EST Glomerular Filtration Rate 107 mL/min (>60); Est Glom Filt Rate - Afr Amer 129 mL/min (>60); Glucose 104 mg/dL (74-106); Potassium 4.1 mmol/L (3.5-5.1); Sodium Level 142 mmol/L (136-145)
[2022-02-06 20:41] LABS: Bedside Glucose 105 mg/dL (74-106)
[2022-02-06 21:00] LABS: Bedside Glucose 130 mg/dL (74-106)
[2022-02-06 22:11] LABS: Bedside Glucose 123 mg/dL (74-106)
[2022-02-06 23:11] LABS: Bedside Glucose 101 mg/dL (74-106)
[2022-02-07] VITALS (20 sets, daily range): BP systolic 108–142; BP diastolic 58–96; PULSE 94–944; RESP 11–20; TEMP 35.8–36.7; O2SAT 98–100
[2022-02-07 00:31] LABS: Bedside Glucose 90 mg/dL (74-106)
[2022-02-07] MEDS: Dext 5%-0.45% NS 1,000 ML 150 ML IV ×2 (00:44→07:30)
[2022-02-07 00:46] LABS: Anion Gap 9 (5-15); BUN 5 mg/dL (7-18); BUN/Creat Ratio 7.8 RATIO (10-20); Calcium,Total 8.5 mg/dL (8.5-10.1); Chloride 117 mmol/L (98-107); Creatinine, Serum 0.64 mg/dL (0.55-1.02); EST Glomerular Filtration Rate 122 mL/min (>60); Est Glom Filt Rate - Afr Amer 147 mL/min (>60); Estimated Creatinine Clearance 103.16 ml/min; Glucose 86 mg/dL (74-106); Potassium 3.5 mmol/L (3.5-5.1); Sodium Level 143 mmol/L (136-145)
[2022-02-07 01:15] LABS: Bedside Glucose 85 mg/dL (74-106)
[2022-02-07 02:15] LABS: Bedside Glucose 88 mg/dL (74-106)
--- NOTE | 2022-02-07 03:05 | NURSING ---
This RN advised TAMARA Garland to hold insulin drip d/t fingerstick BS of 69 and notify hospitalist on duty for further orders. D5 1/2NS cont at 150ml/hr.
[2022-02-07 03:11] LABS: Bedside Glucose 69 mg/dL (74-106)
[2022-02-07 04:10] LABS: Absolute Lymphocyte Count 2.72 X10^3/uL (0.83-4.51); Absolute Neutrophil Count 4.8 X10^3/uL (2.0-7.7); Basophil# 0.06 X10^3/uL; Basophil% 0.7 % (0-1); Eosinophil# 0.06 X10^3/uL; Eosinophils% 0.7 % (0-5); Hematocrit 37.6 % (37-47); Hemoglobin 12.3 g/dL (12.0-15.0); Lymphocyte # 2.72 X10^3/ul (0.83-4.51); Lymphocyte % 32.3 % (19-41); Mean Corp Hgb Conc 32.7 g/dL (32-36); Mean Corpuscular Hgb 28.7 pg (27.0-32.0); Mean Corpuscular Volume 87.9 fL (81-99); Monocyte# 0.71 X10^3/uL; Monocyte% 8.4 % (0-10); NRBC Flagged by Analyzer 0 % (0-5); Neutrophil # 4.82 X10^3/uL (2.7-7.7); Neutrophil % 57.3 % (47-70); Platelet Count 352 K/mm3 (150-450); RBC Distribution Width CV 13.4 % (11.6-14.6); RBC Distribution Width SD 42.8 fl (35.1-43.9); Red Blood Count 4.28 M/mm3 (4.2-5.4); White Blood Count 8.4 K/mm3 (4.4-11.0)
[2022-02-07 04:24] LABS: Anion Gap 9 (5-15); BUN 5 mg/dL (7-18); BUN/Creat Ratio 7.7 RATIO (10-20); Calcium,Total 8.3 mg/dL (8.5-10.1); Chloride 115 mmol/L (98-107); Creatinine, Serum 0.65 mg/dL (0.55-1.02); EST Glomerular Filtration Rate 120 mL/min (>60); Est Glom Filt Rate - Afr Amer 146 mL/min (>60); Estimated Creatinine Clearance 101.58 ml/min; Glucose 75 mg/dL (74-106); Potassium 3.1 mmol/L (3.5-5.1); Sodium Level 143 mmol/L (136-145)
[2022-02-07] MEDS: Levothyroxine 50 MCG Tablet PO (06:03)
[2022-02-07] MEDS: Potassium Chloride Oral Tablet 20 MEQ 40 MEQ PO (06:03)
--- NOTE | 2022-02-07 07:22 | PN.HOSP_ITS ---
Subjective Subjective Patient had to be sent back to the ICU after she went back into DKA. Managed with aggressive fluid insulin and correction of electrolyte. Remains on antibiotics for her acute cystitis culture still pending Objective Data Objective Data Vital Signs: Vital Signs Temp Pulse Resp BP Pulse Ox 96.5 F L 944 H 12 127/74 H 100 02/07/22 04:00 02/07/22 06:00 02/07/22 06:00 02/07/22 06:00 02/07/22 06:00 Oxygen Delivery Method Room Air Weight: 86.8 kg Body Mass Index (BMI) 36.1 Intake & Output: Intake and Output for Last 24 Hours 02/05/22 02/06/22 02/07/22 23:59 23:59 23:59 Intake Total 4385.80 / 5185.80 7296.25 / 7298.55 1009.35 / 1009.35 Output Total 500 / 500 2500 / 2501 Balance 3885.80 / 4685.80 4796.25 / 4797.55 1008.35 / 1008.35 Lab / Micro Data Result Diagrams: 02/07/22 03:55 02/07/22 03:55 Labs: Laboratory Results - last 24 hr 02/06/22 11:27: POC Glucose 474 H* 02/06/22 13:43: POC Glucose 359 H 02/06/22 14:04: Sodium 138, Potassium 4.5, Chloride 107, Carbon Dioxide 7.0 L*, Anion Gap 24 H, BUN 7, Creatinine 0.88, Estim Creat Clear Calc 75.03, Est GFR (MDRD) Af Amer 103, Est GFR (MDRD) Non-Af 85, BUN/Creatinine Ratio 8.0 L, Glu cose 345 H, Calcium 8.8 02/06/22 14:04: Magnesium 2.3 02/06/22 14:56: Acetone Level LARGE H 02/06/22 15:54: POC Glucose 269 H 02/06/22 17:04: POC Glucose 158 H 02/06/22 18:03: POC Glucose 91 02/06/22 19:02: POC Glucose 78 02/06/22 19:36: Sodium 142, Potassium 4.1, Chloride 115 H, Carbon Dioxide 15.0 L , Anion Gap 12, BUN 5 L, Creatinine 0.72, Estim Creat Clear Calc 91.70, Est GFR (MDRD) Af Amer 129, Est GFR (MDRD) Non-Af 107, BUN/Creatinine Ratio 7.0 L, Glucose 104, Calcium 8.7 02/06/22 20:33: POC Glucose 105 02/06/22 20:57: POC Glucose 130 H 02/06/22 22:03: POC Glucose 123 H 02/06/22 23:04: POC Glucose 101 02/07/22 00:15: Sodium 143, Potassium 3.5, Chloride 117 H, Carbon Dioxide 17.0 L , Anion Gap 9, BUN 5 L, Creatinine 0.64, Estim Creat Clear Calc 103.16, Est GFR (MDRD) Af Amer 147, Est GFR (MDRD) Non-Af 122, BUN/Creatinine Ratio 7.8 L, Glucose 86, Calcium 8.5 02/07/22 00:16: POC Glucose 90 02/07/22 01:05: POC Glucose 85 02/07/22 02:09: POC Glucose 88 02/07/22 03:04: POC Glucose 69 L 02/07/22 03:55: WBC 8.4, RBC 4.28, Hgb 12.3, Hct 37.6, MCV 87.9, MCH 28.7, MCHC 32.7, RDW Std Deviation 42.8, RDW Coeff of Jose Roberto 13.4, Plt Count 352, MPV 9.0, Immature Gran % (Auto) 0.600, Neut % (Auto) 57.3, Lymph % (Auto) 32.3, [place] % (Auto) 8.4, Eos % (Auto) 0.7, Baso % (Auto) 0.7, Absolute Neuts (auto) 4.8, Absolute Lymphs (auto) 2.72, Nucleated RBC % 0 02/07/22 03:55: Sodium 143, Potassium 3.1 L, Chloride 115 H, Carbon Dioxide 19.0 L, Anion Gap 9, BUN 5 L, Creatinine 0.65, Estim Creat Clear Calc 101.58, Est GFR (MDRD) Af Amer 146, Est GFR (MDRD) Non-Af 120, BUN/Creatinine Ratio 7.7 L, Glucose 75, Calcium 8.3 L Physical Exam Narrative GENERAL: cooperative HEENT: Atraumatic; EYES; Anicteric, Normal Conjunctiva NECK; supple, normal thyroid, RESPIRATORY: Diminished to auscultation CARDIOVASCULAR: Regular S1 S2, tachycardic GI: soft, normoactive bowel sounds, : No Renal angle tenderness; EXTREMITIES: No edema, no clubbing, MUSCULOSKELETAL: no muscle waisting NEURO: Awake; no lateralizing signs. SKIN: Fresh tattoo on the PSYCH; Flat affect Assessment & Plan Assessment/Plan (1) DKA (diabetic ketoacidoses): QUALIFIERS: Diabetes mellitus complication detail: without coma Diabetes mellitus type: type 1 Qualified Code(s): E10.10 - Type 1 diabetes mellitus with ketoacidosis without coma PLAN: Patient is a 22-year-old lady with past medical history signal for diabetes mellitus type 1.5 who presented with severe nausea found to be in DKA admitted to the intensive care unit for further management 1. Diabetic ketoacidosis ? Patient has been admitted to the intensive care unit managed with aggressive IV fluid resuscitation, systemic insulin with serial monitoring of electrolyte and correction of electrolyte abnormalities -02/06/2022; patient anion gap has closed still remains acidotic. Patient was started on clear liquids as well as long-acting insulin -02/07/2022; patient went back into DKA patient has been transferred from ICU to [facility] floor had to be sent back to the ICU with initiation of the DKA protocol. Seen this a.m. overall clinical condition improved out of DKA patient started on long-acting insulin and aggressive IV fluids 2. Acute cystitis ? Patient was started on Rocephin cultures sent previous cultures had grown Proteus and E. coli ? 02/07/2022; cultures pending 3. Diabetes mellitus type 1.5 ? Patient presented with DKA management as described above plan is to resume patient home meds once her DKA resolved ?02/06/2022. Patient home insulin regimen resumed 4. Hypertension - Blood pressure controlled, home medications continued with dose adjustment as needed 5. Hypothyroidism - Patient is on levothyroxine home dose continued 7. Class I obesity with BMI of 34.5 ? Weight loss advised 8. DVT prophylaxis ? Low risk did encourage early ambulation Charges/Coding Visit Charges Inpatient E&M: 61127 Subs Hosp L2
[2022-02-07 07:36] LABS: Bedside Glucose 183 mg/dL (74-106)
[2022-02-07] MEDS: Potassium Chloride 10mEq/100mL 10 MEQ/100 ML IV.SOLN. 100 MEQ IV BOLUS ×4 (08:18→13:07)
[2022-02-07] MEDS: Insulin Lispro 100 UNIT/ML INSULN.PEN SC ×4 (08:26→21:11)
[2022-02-07 09:36] LABS: Bedside Glucose 206 mg/dL (74-106)
[2022-02-07] MEDS: Insulin Glargine-YFGN 100 UNIT/ML Pen 25 UNIT SC ×2 (10:56→21:12)
[2022-02-07] MEDS: Insulin Lispro 100 UNIT/ML INSULN.PEN 10 UNIT SC ×2 (10:58→17:17)
[2022-02-07] MEDS: Ceftriaxone 1 GM/50 ML BAG IV (10:59)
[2022-02-07] MEDS: Lisinopril 10 MG Tablet 30 MG PO (11:00)
[2022-02-07 11:15] LABS: Bedside Glucose 220 mg/dL (74-106)
[2022-02-07 14:07] LABS: Anion Gap 8 (5-15); BUN 4 mg/dL (7-18); Calcium,Total 8.6 mg/dL (8.5-10.1); Chloride 109 mmol/L (98-107); Creatinine, Serum 0.81 mg/dL (0.55-1.02); EST Glomerular Filtration Rate 93 mL/min (>60); Est Glom Filt Rate - Afr Amer 113 mL/min (>60); Estimated Creatinine Clearance 81.51 ml/min; Glucose 245 mg/dL (74-106); Sodium Level 137 mmol/L (136-145)
[2022-02-07] MEDS: 0.9% Saline Lock 10 ML Syringe IV (14:09)
[2022-02-07 17:25] LABS: Bedside Glucose 332 mg/dL (74-106)
[2022-02-07 20:11] LABS: Bedside Glucose 270 mg/dL (74-106)
[2022-02-07] MEDS: Senna/Docusate Sodium 1 Tablet 2 TABLET PO (21:11)
[2022-02-08 02:08] VITALS: BP 105/62; PULSE 98; RESP 16; TEMP 36.9; O2SAT 99
[2022-02-08] MEDS: Levothyroxine 50 MCG Tablet PO (05:25)
[2022-02-08 07:13] VITALS: O2SAT 100
--- NOTE | 2022-02-08 07:22 | PCM.PN.HOSP ---
Subjective Subjective Patient seen out of DKA. Plan for patient to be assessed for possible discharge. Objective Data Objective Data Vital Signs: Vital Signs Temp Pulse Resp BP Pulse Ox 98.4 F 98 16 105/62 99 02/08/22 02:08 02/08/22 02:08 02/08/22 02:08 02/08/22 02:08 02/08/22 02:08 Oxygen Delivery Method Room Air Weight: 86.5 kg Body Mass Index (BMI) 36.1 Intake & Output: Intake and Output for Last 24 Hours 02/06/22 02/07/22 02/08/22 23:59 23:59 23:59 Intake Total 7296.25 / 7298.55 4059.35 / 4059.35 Output Total 2500 / 2501 Balance 4796.25 / 4797.55 4058.35 / 4058.35 Lab / Micro Data Result Diagrams: 02/07/22 03:55 02/07/22 13:35 Labs: Laboratory Results - last 24 hr 02/07/22 07:27: POC Glucose 183 H 02/07/22 09:26: POC Glucose 206 H 02/07/22 10:51: POC Glucose 220 H 02/07/22 13:35: Sodium 137, Potassium 4.0, Chloride 109 H, Carbon Dioxide 20.0 L, Anion Gap 8, BUN 4 L, Creatinine 0.81, Estim Creat Clear Calc 81.51, Est GFR (MDRD) Af Amer 113, Est GFR (MDRD) Non-Af 93, BUN/Creatinine Ratio 5.0 L, Glucose 245 H, Calcium 8.6 02/07/22 17:16: POC Glucose 332 H 02/07/22 20:05: POC Glucose 270 H Physical Exam Narrative GENERAL: cooperative HEENT: Atraumatic; EYES; Anicteric, Normal Conjunctiva NECK; supple, normal thyroid, RESPIRATORY: Diminished to auscultation CARDIOVASCULAR: Regular S1 S2, tachycardic GI: soft, normoactive bowel sounds, : No Renal angle tenderness; EXTREMITIES: No edema, no clubbing, MUSCULOSKELETAL: no muscle waisting NEURO: Awake; no lateralizing signs. SKIN: Fresh tattoo on the PSYCH; Flat affect Assessment & Plan Assessment/Plan (1) DKA (diabetic ketoacidoses): QUALIFIERS: Diabetes mellitus complication detail: without coma Diabetes mellitus type: type 1 Qualified Code(s): E10.10 - Type 1 diabetes mellitus with ketoacidosis without coma PLAN: Patient is a 22-year-old lady with past medical history signal for diabetes mellitus type 1.5 who presented with severe nausea found to be in DKA admitted to the intensive care unit for further management 1. Diabetic ketoacidosis ? Patient has been admitted to the intensive care unit managed with aggressive IV fluid resuscitation, systemic insulin with serial monitoring of electrolyte and correction of electrolyte abnormalities -02/06/2022; patient anion gap has closed still remains acidotic. Patient was started on clear liquids as well as long-acting insulin -02/07/2022; patient went back into DKA patient has been transferred from ICU to [facility] floor had to be sent back to the ICU with initiation of the DKA protocol. Seen this a.m. overall clinical condition improved out of DKA patient started on long-acting insulin and aggressive IV fluids 2. Acute cystitis ? Patient was started on Rocephin cultures sent previous cultures had grown Proteus and E. coli ? 02/07/2022; cultures pending 3. Diabetes mellitus type 1.5 ? Patient presented with DKA management as described above plan is to resume patient home meds once her DKA resolved ?02/06/2022. Patient home insulin regimen resumed 4. Hypertension - Blood pressure controlled, home medications continued with dose adjustment as needed 5. Hypothyroidism - Patient is on levothyroxine home dose continued 7. Class I obesity with BMI of 34.5 ? Weight loss advised 8. DVT prophylaxis ? Low risk did encourage early ambulation Charges/Coding Visit Charges Inpatient E&M: 54229 [facility] Hosp L2
[2022-02-08 07:41] LABS: Bedside Glucose 205 mg/dL (74-106)
[2022-02-08 08:09] VITALS: BP 138/92; PULSE 102; RESP 15; TEMP 37; O2SAT 100
[2022-02-08] MEDS: Insulin Lispro 100 UNIT/ML INSULN.PEN SC (08:27)
[2022-02-08] MEDS: Insulin Lispro 100 UNIT/ML INSULN.PEN 10 UNIT SC (08:27)
[2022-02-08] MEDS: Insulin Glargine-YFGN 100 UNIT/ML Pen 25 UNIT SC (08:28)
[2022-02-08] MEDS: Lisinopril 10 MG Tablet 30 MG PO (08:29)
--- NOTE | 2022-02-08 09:31 | DS.PCM_ITS ---
Providers Date of Admission: 02/05/22 Primary Care Physician: RIO Richmond Reason For Visit: DKA Diagnosis Discharge Diagnosis (1) DKA (diabetic ketoacidoses): Status: Acute Code(s): E11.10 - Type 2 diabetes mellitus with ketoacidosis without coma Qualifiers: Diabetes mellitus type: type 1 Diabetes mellitus complication detail: without coma Qualified Code(s): E10.10 - Type 1 diabetes mellitus with ketoacidosis without coma Medications at Discharge Home Medications insulin lispro 100 unit/mL subcutaneous solution 1 sliding scale dose SC USEASDIRECTD 30 Days #10 ml 01/07/20 levothyroxine 50 mcg tablet 50 mcg PO DAILY #90 tab 02/08/20 lisinopril 20 mg tablet 30 mg PO DAILY 90 Days #135 tab 02/08/20 Basaglar KwikPen U-100 Insulin 45 unit SC DAILY 02/06/22 cefdinir 300 mg PO BID #10 cap 02/08/22 Hospital Course Summary of Care Provided Minutes Spent on Discharge: 35 Hospital Course: Patient is a 22-year-old lady with past medical history signal for diabetes mellitus type 1.5 who presented with severe nausea found to be in DKA admitted to the intensive care unit for further management 1. Diabetic ketoacidosis ? Patient has been admitted to the intensive care unit managed with aggressive IV fluid resuscitation, systemic insulin with serial monitoring of electrolyte and correction of electrolyte abnormalities -02/06/2022; patient anion gap has closed still remains acidotic. Patient was started on clear liquids as well as long-acting insulin -02/07/2022; patient went back into DKA patient has been transferred from ICU to [facility] floor had to be sent back to the ICU with initiation of the DKA protocol. Seen this a.m. overall clinical condition improved out of DKA patient started on long-acting insulin and aggressive IV fluids ? 02/08/2022 DKA resolved plan is for patient to be assessed for possible discharge 2. Acute cystitis ? Patient was started on Rocephin cultures sent previous cultures had grown Proteus and E. coli ? 02/07/2022; cultures pending 3. Diabetes mellitus type 1.5 ? Patient presented with DKA management as described above plan is to resume patient home meds once her DKA resolved ?02/06/2022. Patient home insulin regimen resumed 4. Hypertension - Blood pressure controlled, home medications continued with dose adjustment as needed 5. Hypothyroidism - Patient is on levothyroxine home dose continued 7. Class I obesity with BMI of 34.5 ? Weight loss advised 8. DVT prophylaxis ? Low risk did encourage early ambulation Physical Exam Narrative GENERAL: cooperative HEENT: Atraumatic; EYES; Anicteric, Normal Conjunctiva NECK; supple, normal thyroid, RESPIRATORY: Diminished to auscultation CARDIOVASCULAR: Regular S1 S2, tachycardic GI: soft, normoactive bowel sounds, : No Renal angle tenderness; EXTREMITIES: No edema, no clubbing, MUSCULOSKELETAL: no muscle waisting NEURO: Awake; no lateralizing signs. SKIN: Fresh tattoo on the PSYCH; Flat affect Weight / BMI Weight Weight: 86.5 kg Body Mass Index (BMI) 36.1 ABG / Lab / Microbiology Data Result Diagrams: 02/07/22 03:55 02/07/22 13:35 Laboratory: Laboratory Results - last 24 hr 02/07/22 09:26: POC Glucose 206 H 02/07/22 10:51: POC Glucose 220 H 02/07/22 13:35: Sodium 137, Potassium 4.0, Chloride 109 H, Carbon Dioxide 20.0 L , Anion Gap 8, BUN 4 L, Creatinine 0.81, Estim Creat Clear Calc 81.51, Est GFR (MDRD) Af Amer 113, Est GFR (MDRD) Non-Af 93, BUN/Creatinine Ratio 5.0 L, Glucose 245 H, Calcium 8.6 02/07/22 17:16: POC Glucose 332 H 02/07/22 20:05: POC Glucose 270 H 02/08/22 07:34: POC Glucose 205 H D/C Instructions Discharge Diet: 1800 Calorie Control Diet Discharge Activity: Return to Normal Activity Call your doctor if you observe: Fever of 101 or Higher, Shortness of breath, Fa inting spells and Chest pain Meaningful Use Info Meaningful Use Diagnoses (Choose all that apply): None applicable Discharge Plan Admission Admit Date/Time: 02/05/22 09:57 Attending Provider: Juan Medina Primary Care Provider: Ayaka Tsai NP Discharge Orders/Prescriptions Prescriptions: New cefdinir 300 mg capsule 300 mg PO BID Qty: 10 RF: 0 Continued insulin lispro [Humalog U-100 Insulin] 100 unit/mL solution 1 sliding scale dose SC USEASDIRECTD 30 Days Qty: 10 RF: 12 lisinopril 20 mg tablet 30 mg PO DAILY 90 Days Qty: 135 RF: 3 levothyroxine 50 mcg tablet 50 mcg PO DAILY Qty: 90 RF: 3 Basaglar KwikPen U-100 Insulin 100 unit/mL (3 mL) insulin pen 45 unit SC DAILY RF: 0 Referrals / Follow Up: Ayaka Tsai NP, [employer] [Primary Care Provider] - In 1 Week Disposition Disposition (needs filled in before D/C Order can be placed): Home, Self Care Charges/Coding Visit Charges Inpatient E&M: 68717 Disch Hosp
--- NOTE | 2022-02-08 11:22 | PHA.DC.MC ---
Pharmacy Service has performed discharge medication reconciliation and counseling for this patient. 1. CEFDINIR 300MG PO BID X 5 DAYS The patient's discharge medication list was reviewed for discrepancies and discrepancies were resolved. Home Medications levothyroxine 50 mcg tablet 50 mcg PO DAILY #90 tab 02/08/20 lisinopril 20 mg tablet 30 mg PO DAILY 90 Days #135 tab 02/08/20 cefdinir 300 mg PO BID #10 cap 02/08/22 insulin glargine-yfgn 30 unit SUBCUT BID 30 Days #18 ml 02/08/22 insulin lispro [Humalog KwikPen Insulin] 10 unit SUBCUT TIDAC 30 Days #9 ml 02/08/22 insulin lispro [Humalog KwikPen Insulin] See Protocol SUBCUT ACHS 30 Days #10 ml 02/08/22 The patient was counseled on the following discharge medications and changes in medications for homegoing were reviewed. The Reason for Use, instructions for use, and potential side effects were reviewed for all new medications. The patient's questions regarding all of their medications were answered. The patient was able to verbally demonstrate an understanding of their discharge medications.
--- NOTE | 2022-02-08 11:36 | CASEMGMT ---
Social Work Note DILLON updated that pt's prescriptions are going to be around $300 and pt has no insurance. SW in to speak with pt. SW updated pt that the prescriptions are around $300 and asked if pt can afford this. Pt state she cannot. Pt states she has no money and no credit cards. Pt states that she has insulin/vials at home and states she doesn't need anymore vials at home. SW informed pt that this worker will have to check on that to see if she can just resume vials she already has. Pt asked how much just the antibiotic and this worker informed pt that this worker is not sure, this worker was just provided the whole amount but can also find out that information. Pt asked why her prescriptions were sent to [facility] pharmacy when she stated her preferred pharmacy was [facility] in [place]. Pt state she lives right next to [facility] in [place]. SW informed pt that this worker is not sure but informed pt that since her prescriptions were sent to [facility] pharmacy and if she cannot afford them, there is a program that can assist pt with cost of medications. Pt states understanding. DILLON updated TAMARA REHMAN. 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
--- NOTE | 2022-02-08 11:54 | CASEMGMT ---
RN CM in to pt room, pt states she has Novolin R and N at home and she does not want to use insulin ordered. She states it is cheaper to use at [facility]. Pt does want her atb. TC to pharmacy, atb is $20.83, pt is able to afford this. Updated hospitalist and received the ok for these insulins to be interchanged. Notified pt nurse and patient is aware. Pt denies further needs.
== END 2022-02-08 11:54 | disposition home or self-care (01) | DRG 638 ==
LOC: ED 08:39 → ICU 10:18 → MS3 02-06 09:46 → ICU 02-06 15:23 → MS3 02-07 15:27
PROVIDERS: Admitting Provider Internal Medicine; Emergency Provider Emergency Medicine; PCP Nurse Practitioner; Visit Provider Internal Medicine
DX: E13.10 Other specified diabetes mellitus with ketoacidosis without coma (principal); N30.00 Acute cystitis without hematuria; E03.9 Hypothyroidism, unspecified; Z79.4 Long term (current) use of insulin; E13.43 Other specified diabetes mellitus with diabetic autonomic (poly)neuropathy; E78.5 Hyperlipidemia, unspecified; I10 Essential (primary) hypertension; K31.84 Gastroparesis; F41.9 Anxiety disorder, unspecified; E66.9 Obesity, unspecified; Z68.34 Body mass index [BMI] 34.0-34.9, adult; F32.A Depression, unspecified; Z79.899 Other long term (current) drug therapy
CPT/HCPCS: 80048; 80053; 81001; 82009; 82803; 82962; 83036; 83735; 84100; 84703; 85025; 87086; 87088; 93005; 94762; 97802; 97803; 99285; J7030; J7050; A4216; J2405; J7799

== ENCOUNTER 2022-03-09 11:50 | Inpatient (IN) | payer SELFPAY ==
[2022-03-09] VITALS (15 sets, daily range): BP systolic 122–150; BP diastolic 61–94; PULSE 100–132; RESP 13–24; TEMP 36.4–36.8; O2SAT 97–100; BMI 34.9; BMI 32.5
[2022-03-09 12:05] LABS: Bedside Glucose 262 mg/dL (74-106)
--- NOTE | 2022-03-09 12:05 | RAD_ITS ---
STUDY: X-RAY CHEST REASON FOR EXAM: Female, 22 years old. Dyspnea TECHNIQUE: 2 AP portable views COMPARISON: 10/26/2021 FINDINGS: EKG leads overlie the chest The lungs are clear and expanded. There is no demonstrated pleural abnormality. Normal size heart. Normal mediastinum and wojciech. Normal visualized pulmonary arteries. Normal visualized aortic arch and descending thoracic aorta. Normal visualized thoracic spine. Normal visualized ribs, clavicles, and shoulders. There is no demonstrated abnormality of the visualized soft tissue structures of the upper abdomen. RAD/Chest 1 View (Portable) IMPRESSION: Normal x-ray examination of the chest. Electronically Signed: Harry Cantor MD at 13:03 EDT ,
--- NOTE | 2022-03-09 12:05 | EKG12_ITS ---
Test Reason : HIGH SUGAR Blood Pressure : / mmHG Vent. Rate : 119 BPM Atrial Rate : 119 BPM P-R Int : 130 ms QRS Dur : 096 ms QT Int : 314 ms P-R-T Axes : 063 071 -07 degrees QTc Int : 441 ms Sinus tachycardia T wave abnormality, consider lateral ischemia Abnormal ECG Confirmed by NEREIDA RODGERS, PARVIZ ([id number]), movie editor LARISA BALDERAS ([id number]) on 03/11/2022 11:34:33 AM Referred By: DC Confirmed By:PARVIZ PADRON MD
--- NOTE | 2022-03-09 12:16 | EDS_ITS ---
HPI History of Present Illness Chief Complaint: Hyperglycemia Informant: patient Onset/Context/Timing Onset: Days Context: Gradual Onset Timing: Continuous Current Severity: Moderate Worsened by: Nothing Relieved by: Nothing Associated Symptoms Associated Symptoms: Nausea, dyspnea Narrative Narrative: Concern for DKA, glucose in the 300s. Took 15 units of fast acting insulin 45 mins ago. Associated with nausea and dyspnea. Nothing seems to help for this. Prior similar symptoms: Yes PFSH PFSH Medical History Anxiety and depression Dyslipidemia (high LDL; low HDL) Hypertension Hypothyroidism type 1.5 DM Home Medications levothyroxine 50 mcg tablet 50 mcg PO DAILY #90 tab 02/08/20 [Rx Last Taken Unknown] lisinopril 20 mg tablet 30 mg PO DAILY 90 Days #135 tab 02/08/20 [Rx Last Taken Unknown] cefdinir 300 mg PO BID #10 cap 02/08/22 [Rx Last Taken Unknown] insulin glargine-yfgn 30 unit SUBCUT BID 30 Days #18 ml 02/08/22 [Rx Last Taken Unknown] insulin lispro [Humalog KwikPen Insulin] 10 unit SUBCUT TIDAC 30 Days #9 ml 02/08/22 [Rx Last Taken Unknown] insulin lispro [Humalog KwikPen Insulin] See Protocol SUBCUT ACHS 30 Days #10 ml 02/08/22 [Rx Last Taken Unknown] Allergy/AdvReac Type Severity Reaction Status Date / Time No Known Allergies Allergy Verified 03/09/22 11:50 Family History Other CVA (cerebral vascular accident) Diabetes Heart disease Hypertension Surgical History History of tonsillectomy Hx of tympanostomy tubes Social History Smoking Status: Never smoker ROS ROS ED Constitutional Constitutional ED: Denies chills or fever(s) Eyes Eyes: Denies change in vision ENT ENT ED: Denies ear pain Cardiovascular Cardiovascular: Denies chest pain Respiratory/Chest Respiratory/Chest: Reports dyspnea Gastrointestinal Gastrointestinal: Reports nausea; Denies abdominal pain Genitourinary Genitourinary ED: Denies dysuria Musculoskeletal Musculoskeletal: Denies myalgias Integumentary Denies rash Neurologic Neurologic: Denies headache(s) Psychiatric Psychiatric: Denies depression Endocrine Endocrinology: Denies polyuria Allergic/Immunologic Allergic/Immunologic ED: Denies urticaria EXAM Physical Exam Const Vital Signs: 03/09/22 11:51 03/09/22 13:01 Temperature 98.2 F 98.2 F Temperature Source Temporal Oral Pulse Rate 132 H 112 H Respiratory Rate 17 24 H Blood Pressure 150/94 H 124/74 H Blood Pressure Mean 112 90 Pulse Ox 97 100 Oxygen Delivery Method Room Air Room Air Positive well nourished and well developed General Appearance ED: well developed HEENT Negative for trauma or tenderness Eyes EOMs intact bilaterally Neck supple Resp normal respiratory effort and clear to auscultation bilaterally Cardio regular rhythm; Negative for regular rate Rate: tachycardic GI normal to inspection, nondistended, normoactive bowel sounds, non-tender and non-distended Palpation: soft Extremity normal to inspection Neuro oriented x3 Sensorium / Orientation: alert Psych Mood & Affect: depressed Skin no rashes or lesions noted MDM MDM MDM Narrative Medical decision making narrative: Patient was treated with IV fluids. She is hemoconcentrated. Glucose elevated, CO2 14, anion gap 20, ketones positive. She was treated for DKA with an insulin drip. Chest x-ray was reviewed by the radiologist and myself and showed no acute abnormalities. EKG showed sinus tachycardia with nonspecific T wave changes. No sign of infarction. Patient is stable on reevaluation will be admitted to the ICU by the hospitalist. Impression #1 DKA Critical care time 35 minutes. Lab Data Attestation: I reviewed the patient's lab results. Labs: Laboratory Results - last 24 hr 03/09/22 03/09/22 03/09/22 11:58 12:15 12:15 WBC 10.9 RBC 5.42 H Hgb 16.1 H Hct 47.2 H MCV 87.1 MCH 29.7 MCHC 34.1 RDW Std Deviation 40.4 RDW Coeff of Jose Roberto 12.9 Plt Count 588 H MPV 9.5 Immature Gran % (Auto) 1.300 H Neut % (Auto) 72.8 H Lymph % (Auto) 19.4 [place] % (Auto) 5.0 Eos % (Auto) 0.3 Baso % (Auto) 1.2 H Absolute Neuts (auto) 8.0 H Absolute Lymphs (auto) 2.12 Nucleated RBC % 0 Sodium 134 L Potassium 3.9 Chloride 100 Carbon Dioxide 14.0 L Anion Gap 20 H BUN 8 Creatinine 0.96 Estim Creat Clear Calc 72.08 Est GFR (MDRD) Af Amer 92 Est GFR (MDRD) Non-Af 76 BUN/Creatinine Ratio 8.3 L Glucose 240 H Calcium 9.9 Troponin I High Sens 11 Serum , Qual Acetone Level POC Glucose 262 H 03/09/22 03/09/22 12:15 12:15 WBC RBC Hgb Hct MCV MCH MCHC RDW Std Deviation RDW Coeff of Jose Roberto Plt Count MPV Immature Gran % (Auto) Neut % (Auto) Lymph % (Auto) [place] % (Auto) Eos % (Auto) Baso % (Auto) Absolute Neuts (auto) Absolute Lymphs (auto) Nucleated RBC % Sodium Potassium Chloride Carbon Dioxide Anion Gap BUN Creatinine Estim Creat Clear Calc Est GFR (MDRD) Af Amer Est GFR (MDRD) Non-Af BUN/Creatinine Ratio Glucose Calcium Troponin I High Sens Serum , Qual NEGATIVE Acetone Level MODERATE H POC Glucose ABG Data ABG results: ABG 03/09/22 12:26 Specimen Type MICHAEL VBG pH 7.34 VBG pO2 41 H VBG HCO3 16 L VBG Total CO2 17 L VBG O2 Sat (Calc) 75 H VBG Base Excess -10 L POC Mix VBG pCO2 Pt Tmp 29.2 L Discharge Plan Triage Chief Complaint: Hyperglycemia ED Provider: Chad Anthony Dx/Rx/DC Orders Prescriptions: No Action lisinopril 20 mg tablet 30 mg PO DAILY 90 Days Qty: 135 RF: 3 levothyroxine 50 mcg tablet 50 mcg PO DAILY Qty: 90 RF: 3 insulin lispro [Humalog KwikPen Insulin] 100 unit/mL Insulin Pen 10 unit subcut TIDAC 30 Days Qty: 9 RF: 0 insulin lispro [Humalog KwikPen Insulin] 100 unit/mL Insulin Pen See Protocol unit subcut ACHS 30 Days Qty: 10 RF: 0 insulin glargine-yfgn 100 unit/mL (3 mL) Insulin Pen 30 unit subcut BID 30 Days Qty: 18 RF: 0 cefdinir 300 mg capsule 300 mg PO BID Qty: 10 RF: 0 Primary Care Provider: Ayaka Tsai NP
[2022-03-09] MEDS: Ondansetron 4 MG/2 ML Vial IV (12:20)
[2022-03-09] MEDS: 0.9% Normal Saline 1,000 ML 1000 ML IV ×2 (12:23→14:21)
[2022-03-09 12:30] LABS: Blood Gas Specimen Type VEN; VBG BASE EXCESS -10 mmol/L (-1.0-3.5); VBG Bicarbonate 16 mmol/L (22-26); VBG PO2 41 mmHg (25-40); VBG SO2 75 % (50-70); VBG TCO2 17 mmol/L (23-33); VBG pCO2 29.2 mmHg (41-51); VBG pH 7.34 (7.32-7.42)
[2022-03-09 12:40] LABS: Anion Gap 20 (5-15); BUN 8 mg/dL (7-18); BUN/Creat Ratio 8.3 RATIO (10-20); Calcium,Total 9.9 mg/dL (8.5-10.1); Chloride 100 mmol/L (98-107); Creatinine, Serum 0.96 mg/dL (0.55-1.02); EST Glomerular Filtration Rate 76 mL/min (>60); Est Glom Filt Rate - Afr Amer 92 mL/min (>60); Estimated Creatinine Clearance 72.08 ml/min; Glucose 240 mg/dL (74-106); Internal QC Validated? YES +Cl - CLEAR BKGD; Potassium 3.9 mmol/L (3.5-5.1); Pregnancy, Serum, hCG Quali. NEGATIVE Negative; Sodium Level 134 mmol/L (136-145); Troponin-I HS 11 pg/mL (3.0-54.0)
[2022-03-09 12:44] LABS: Absolute Lymphocyte Count 2.12 X10^3/uL (0.83-4.51); Basophil# 0.13 X10^3/uL; Basophil% 1.2 % (0-1); Eosinophil# 0.03 X10^3/uL; Eosinophils% 0.3 % (0-5); Hematocrit 47.2 % (37-47); Hemoglobin 16.1 g/dL (12.0-15.0); Lymphocyte # 2.12 X10^3/ul (0.83-4.51); Lymphocyte % 19.4 % (19-41); Mean Corp Hgb Conc 34.1 g/dL (32-36); Mean Corpuscular Hgb 29.7 pg (27.0-32.0); Mean Corpuscular Volume 87.1 fL (81-99); Mean Platelet Vol. 9.5 fl (6.2-12.0); Monocyte# 0.55 X10^3/uL; NRBC Flagged by Analyzer 0 % (0-5); Neutrophil # 7.97 X10^3/uL (2.7-7.7); Neutrophil % 72.8 % (47-70); Platelet Count 588 K/mm3 (150-450); RBC Distribution Width CV 12.9 % (11.6-14.6); RBC Distribution Width SD 40.4 fl (35.1-43.9); Red Blood Count 5.42 M/mm3 (4.2-5.4); White Blood Count 10.9 K/mm3 (4.4-11.0)
--- NOTE | 2022-03-09 12:54 | HP.PCM.HOS_ITS ---
HPI - General General Date of Admission: 03/09/22 Date of Service: 03/09/22 Chief Complaint: Hyperglycemia, nausea and abnormal labs HPI Narrative SANTIAGO JACOBSEN, is a 22 F with history of type 1 diabetes mellitus came to ED with high blood sugar along with nausea, shortness of breath/dyspnea. She had 15 units of short acting insulin 45 minutes prior to ED. She has a history of multiple recurrent admissions for DKA, last 1 on 02/05/2022. She states she started throwing up since yesterday morning large-volume clear gastric content. She does not have appetite since yesterday morning and did not had good meal. No fever chills, cough, URI symptoms, dysuria or increased frequency or urgency. Denies abdominal pain. Her urine is slightly yellow in color. She was also short of breath/mild dyspnea on exertion. This is resolved in ED.Patient does not know what precipitated DKA In ED, tachycardic, tachypneic no hypoxia. Afebrile. Labs reviewed and consistent with DKA, discussed in assessment and plan. Twelve-lead EKG done in the ER shows sinus tachycardia 119 bpm. QTc 441 ms [facility] Medical History (Updated 03/09/22 @ 15:[address] Aaron Chiu MD) Anxiety and depression Dyslipidemia (high LDL; low HDL) Hypertension Hypothyroidism Home Medications levothyroxine 50 mcg tablet 50 mcg PO DAILY #90 tab 02/08/20 [Rx Last Taken Unknown] lisinopril 20 mg tablet 30 mg PO DAILY 90 Days #135 tab 02/08/20 [Rx Last Taken Unknown] insulin NPH isoph U-100 human [Novolin N NPH U-100 Insulin] 10 unit SUBCUT BREAKFAST 03/09/22 [History Last Taken Unknown] insulin NPH isoph U-100 human [Novolin N NPH U-100 Insulin] 30 unit SUBCUT QHS 03/09/22 [History Last Taken Unknown] insulin regular human [Novolin R Regular U-100 Insuln] 10 unit SUBCUT TID 03/09/22 [History Last Taken Unknown] insulin regular human [Novolin R Regular U-100 Insuln] See Protocol SUBCUT ACHS 03/09/22 [History Last Taken Unknown] Allergy/AdvReac Type Severity Reaction Status Date / Time No Known Allergies Allergy Verified 03/09/22 11:50 Family History Other CVA (cerebral vascular accident) Diabetes Heart disease Hypertension Surgical History History of tonsillectomy Hx of tympanostomy tubes Social History Smoking Status: Never smoker ROS ROS Narrative Constitutional: Reports fatigue and weakness, nausea and vomiting HEENT: Reports systems reviewed and no addt'l complaints, except as documented Respiratory/Chest: Denies chest pain, shortness of breath at rest or with exertion Gastrointestinal: Denies coffee ground emesis, hematemesis, melena or diarrhea. Genitourinary: Denies burning urination or new urinary tract symptoms Musculoskeletal: No joint pain. ROM intact Neurologic: Denies seizure-like activity skin: No ulcer. No rash Endocrinology: Type I DM, follows VLADIMIR Tsai. Reports systems reviewed and no addt'l complaints, except as documented Hematologic/Lymphatic: Reports systems reviewed and no addt'l complaints, except as documented Rest 14 ROS are negative except as mentioned in HPI Vital Signs Vital Signs Vital Signs: 03/09/22 11:51 Temperature 98.2 F Temperature Source Temporal Pulse Rate 132 H Respiratory Rate 17 Blood Pressure 150/94 H Blood Pressure Mean 112 Pulse Ox 97 Oxygen Delivery Method Room Air Weight Weight: 191 lb Body Mass Index (BMI) 34.9 Physical Exam Narrative General: Alert, Oriented x3, Cooperative HEENT: Atraumatic, PERRLA, EOMI, Normocephalic Oral: Oral mucosa dry. No Gingival or Mucosal Lesions/ Ulcerations Neck: Supple, No JVD, Negative Carotid Bruits Lungs: Air entry diminished in bilateral lung bases. No crepitation/rhonchi Cardiovascular: Regular rate, Regular Rhythm, Normal S1, Normal S2, No murmurs Abdomen: Bowel Sounds Present, Soft, Non Tender, Non-Distended : No renal angle tenderness. No suprapubic tenderness. Extremities: No edema, Capillary Refill Less than 3 Seconds Skin: No rashes, No breakdown Musculoskeletal: No Tenderness to Palpation of Joints or Extremities Neurological: Cranial nerves II-XII grossly intact, DTR 2+/4 and Symmetrical, Neuro grossly intact Psych/Mental Status: Normal Affect, Appropriate. Results Lab / Micro Data Result Diagrams: 03/09/22 12:15 03/09/22 12:15 Labs: Laboratory Results - last 24 hr 03/09/22 11:58: POC Glucose 262 H 03/09/22 12:15: WBC 10.9, RBC 5.42 H, Hgb 16.1 H, Hct 47.2 H, MCV 87.1, MCH 29.7, MCHC 34.1, RDW Std Deviation 40.4, RDW Coeff of Jose Roberto 12.9, Plt Count 588 H, MPV 9.5, Immature Gran % (Auto) 1.300 H, Neut % (Auto) 72.8 H, Lymph % (Auto) 19.4, [place] % (Auto) 5.0, Eos % (Auto) 0.3, Baso % (Auto) 1.2 H, Absolute Neuts (auto) 8.0 H, Absolute Lymphs (auto) 2.12, Nucleated RBC % 0 03/09/22 12:15: Sodium 134 L, Potassium 3.9, Chloride 100, Carbon Dioxide 14.0 L , Anion Gap 20 H, BUN 8, Creatinine 0.96, Estim Creat Clear Calc 72.08, Est GFR (MDRD) Af Amer 92, Est GFR (MDRD) Non-Af 76, BUN/Creatinine Ratio 8.3 L, Glucose 240 H, Calcium 9.9, Troponin I High Sens 11 03/09/22 12:15: Acetone Level MODERATE H 03/09/22 12:15: Serum , Qual NEGATIVE ABG Data ABG results: ABG 03/09/22 12:26 Specimen Type MICHAEL VBG pH 7.34 VBG pO2 41 H VBG HCO3 16 L VBG Total CO2 17 L VBG O2 Sat (Calc) 75 H VBG Base Excess -10 L POC Mix VBG pCO2 Pt Tmp 29.2 L Assessment & Plan Assessment/Plan (1) Type 1 diabetes, uncontrolled, with gastroparesis: (2) DKA (diabetic ketoacidoses): PLAN: 1. DKA with history of type 1 diabetes mellitus: Patient is being admitted in ICU. Anion gap 20, bicarb 14. Acetone moderate. Venous blood gas shows pH 7.34, mixed PCO2 29. At present patient denies nonadherence to insulin regimen another precipitating factor or future for DKA and therefore cause of DKA is unclear. Patient is admitted in ICU. IV fluid resuscitated. Patient was on 8.5 unit of insulin drip that dropped her blood sugar low 75-86 and then most recent 240. Advised to continue IV insulin drip with glucose more than 150 . IV fluid as per DKA first with normal saline and then half-normal saline after serum sodium is normal. Monitor BMP every 4 hourly. Serum osmolality level high. 2. Hypertonic, hypovolemic hyponatremia: Patient serum osmolarity is due to high glucose. Patient on IV fluid normal saline and insulin drip. 3. Type 1 diabetes mellitus with gastroparesis: Needs outpatient work-up for gastroparesis. 4. Hypertension: Blood pressure controlled, 122/78, 134/79. Continue home medication when oral is allowed. 5. Hypothyroidism: At home patient is on levothyroxine. 7. Class I obesity with BMI of 32.5 kg/m? ? Weight loss advised 8. DVT prophylaxis ? Low risk. Encourage early ambulation. Charges/Coding Visit Charges Inpatient E&M: 25337 Init Hosp L3
[2022-03-09 13:17] LABS: Osmolality, Serum 311 mOsm/KG (275-295)
[2022-03-09 13:24] LABS: Magnesium 2.2 mg/dL (1.6-2.6); Phosphorus 3.3 mg/dL (2.5-4.9)
[2022-03-09 13:45] LABS: Bedside Glucose 101 mg/dL (74-106)
[2022-03-09 14:26] LABS: Bedside Glucose 91 mg/dL (74-106)
[2022-03-09 14:50] LABS: Mucous, Urine 0 SEEN /hpf (<or=2+); Red Blood Cells-Urine 0 SEEN /hpf (0-5)
[2022-03-09 14:55] LABS: Color, Urine Yellow (Yellow); Glucose, Dipstick 1000 mg/dl (Normal); Leukocyte Esterase-Dipstick 100 /ul (Negative); Nitrite-Dipstick Negative (Negative); Occult Blood-Urine Negative /ul (Negative); Protein-Dipstick 100 mg/dl (Negative); Specific Gravity, Urine 1.025 (1.002-1.030); Urine Bilirubin Dipstick Negative (Negative); Urine Clarity Clear (Clear); Urine Urobilinogen Normal (Normal)
[2022-03-09 14:56] LABS: Ketone-Dipstick 150 mg/dl (Negative)
[2022-03-09 15:02] LABS: Squamous Epithelial Cells - UA 0-5 SEEN /hpf (5-10); White Blood Cells 0-5 SEEN /hpf (0-5)
[2022-03-09 15:03] LABS: Bacteria 1+ /hpf (None Seen)
[2022-03-09] MEDS: 0.9% Normal Saline 1,000 ML 500 ML IV (15:39)
[2022-03-09 16:20] LABS: Bedside Glucose 98 mg/dL (74-106)
[2022-03-09 17:21] LABS: Anion Gap 14 (5-15); BUN 8 mg/dL (7-18); BUN/Creat Ratio 12.8 RATIO (10-20); Calcium,Total 8.1 mg/dL (8.5-10.1); Chloride 110 mmol/L (98-107); Creatinine, Serum 0.62 mg/dL (0.55-1.02); EST Glomerular Filtration Rate 126 mL/min (>60); Est Glom Filt Rate - Afr Amer 152 mL/min (>60); Estimated Creatinine Clearance 111.61 ml/min; Glucose 107 mg/dL (74-106); Potassium 3.9 mmol/L (3.5-5.1); Sodium Level 141 mmol/L (136-145)
[2022-03-09 17:35] LABS: Bedside Glucose 130 mg/dL (74-106)
[2022-03-09 17:35] LABS: Bedside Glucose 96 mg/dL (74-106)
[2022-03-09 18:15] LABS: Bedside Glucose 169 mg/dL (74-106)
[2022-03-09 19:06] LABS: Bedside Glucose 296 mg/dL (74-106)
[2022-03-09] MEDS: 0.9% Normal Saline 1,000 ML 250 ML IV (19:52)
[2022-03-09 20:31] LABS: Bedside Glucose 250 mg/dL (74-106)
[2022-03-09 20:49] LABS: Anion Gap 15 (5-15); BUN 6 mg/dL (7-18); BUN/Creat Ratio 9.2 RATIO (10-20); Chloride 112 mmol/L (98-107); Creatinine, Serum 0.66 mg/dL (0.55-1.02); EST Glomerular Filtration Rate 119 mL/min (>60); Est Glom Filt Rate - Afr Amer 144 mL/min (>60); Estimated Creatinine Clearance 104.85 ml/min; Glucose 278 mg/dL (74-106); Potassium 4.3 mmol/L (3.5-5.1); Sodium Level 139 mmol/L (136-145)
[2022-03-09] MEDS: 0.9% Normal Saline 1,000 ML 200 ML IV (22:03)
[2022-03-09] MEDS: Insulin NPH Human 100 UNITS/ML PEN 20 UNITS SC (22:05)
[2022-03-09 22:11] LABS: Bedside Glucose 204 mg/dL (74-106)
[2022-03-10] VITALS (18 sets, daily range): BP systolic 104–147; BP diastolic 58–81; PULSE 93–117; RESP 12–21; TEMP 36.6–36.9; O2SAT 97–100
[2022-03-10] MEDS: 0.9% Normal Saline 1,000 ML 200 ML IV
[2022-03-10] MEDS: Ondansetron 4 MG/2 ML Vial IV (00:06)
[2022-03-10 00:35] LABS: Bedside Glucose 398 mg/dL (74-106)
[2022-03-10] MEDS: proCHLORPERazine 10 MG/2 ML Vial 5 MG IV (01:15)
[2022-03-10 01:23] LABS: Anion Gap 20 (5-15); BUN 7 mg/dL (7-18); BUN/Creat Ratio 10.1 RATIO (10-20); Calcium,Total 8.2 mg/dL (8.5-10.1); Chloride 108 mmol/L (98-107); Creatinine, Serum 0.69 mg/dL (0.55-1.02); EST Glomerular Filtration Rate 112 mL/min (>60); Est Glom Filt Rate - Afr Amer 135 mL/min (>60); Estimated Creatinine Clearance 100.29 ml/min; Glucose 427 mg/dL (74-106); Potassium 4.4 mmol/L (3.5-5.1); Sodium Level 137 mmol/L (136-145)
[2022-03-10] MEDS: Insulin Lispro 100 UNIT/ML INSULN.PEN 15 UNIT SC (01:34)
[2022-03-10] MEDS: 0.9% Normal Saline 1,000 ML 999 ML IV (02:08)
[2022-03-10 02:56] LABS: Bedside Glucose 217 mg/dL (74-106)
[2022-03-10] MEDS: Dext 5%-0.45% NS 1,000 ML 200 ML IV (03:08)
[2022-03-10 03:56] LABS: Bedside Glucose 168 mg/dL (74-106)
[2022-03-10 04:56] LABS: Bedside Glucose 139 mg/dL (74-106)
[2022-03-10 05:09] LABS: Absolute Lymphocyte Count 2.45 X10^3/uL (0.83-4.51); Absolute Neutrophil Count 7.7 X10^3/uL (2.0-7.7); Basophil# 0.06 X10^3/uL; Basophil% 0.5 % (0-1); Eosinophil# 0.04 X10^3/uL; Eosinophils% 0.4 % (0-5); Hematocrit 35.8 % (37-47); Hemoglobin 11.8 g/dL (12.0-15.0); Lymphocyte # 2.45 X10^3/ul (0.83-4.51); Lymphocyte % 22.4 % (19-41); Mean Corpuscular Hgb 29.1 pg (27.0-32.0); Mean Corpuscular Volume 88.2 fL (81-99); Monocyte# 0.57 X10^3/uL; Monocyte% 5.2 % (0-10); NRBC Flagged by Analyzer 0 % (0-5); Neutrophil % 70.3 % (47-70); Platelet Count 369 K/mm3 (150-450); RBC Distribution Width CV 13.1 % (11.6-14.6); RBC Distribution Width SD 42.2 fl (35.1-43.9); Red Blood Count 4.06 M/mm3 (4.2-5.4)
[2022-03-10 05:31] LABS: Anion Gap 11 (5-15); BUN 5 mg/dL (7-18); Calcium,Total 7.7 mg/dL (8.5-10.1); Chloride 113 mmol/L (98-107); Creatinine, Serum 0.63 mg/dL (0.55-1.02); EST Glomerular Filtration Rate 125 mL/min (>60); Est Glom Filt Rate - Afr Amer 152 mL/min (>60); Estimated Creatinine Clearance 109.84 ml/min; Potassium 3.7 mmol/L (3.5-5.1); Sodium Level 139 mmol/L (136-145)
[2022-03-10 05:32] LABS: Glucose 157 mg/dL (74-106)
[2022-03-10 05:55] LABS: Bedside Glucose 140 mg/dL (74-106)
[2022-03-10 06:51] LABS: Bedside Glucose 110 mg/dL (74-106)
[2022-03-10 07:04] LABS: Hemoglobin A1c 11.5 % (3.8-5.6)
--- NOTE | 2022-03-10 07:21 | PN.HOSP_ITS ---
Subjective Subjective Seen and examined. Follow-up for DKA. Objective Data Objective Data Vital Signs: Vital Signs Temp Pulse Resp BP Pulse Ox 97.9 F 100 16 119/62 99 03/10/22 00:00 03/10/22 06:00 03/10/22 06:00 03/10/22 06:00 03/10/22 06:00 Oxygen Delivery Method Room Air Weight: 186 lb 1.122 oz Body Mass Index (BMI) 32.5 Intake & Output: Intake and Output for Last 24 Hours 03/08/22 03/09/22 03/10/22 23:59 23:59 23:59 Intake Total 4025.66 / 4915.66 3379 / 3379 Output Total 400 / 400 1000 / 1000 Balance 3625.66 / 4515.66 2379 / 2379 Lab / Micro Data Result Diagrams: 03/10/22 04:50 03/10/22 09:10 Labs: Laboratory Results - last 24 hr 03/09/22 11:58: POC Glucose 262 H 03/09/22 12:15: WBC 10.9, RBC 5.42 H, Hgb 16.1 H, Hct 47.2 H, MCV 87.1, MCH 29.7, MCHC 34.1, RDW Std Deviation 40.4, RDW Coeff of Jose Roberto 12.9, Plt Count 588 H, MPV 9.5, Immature Gran % (Auto) 1.300 H, Neut % (Auto) 72.8 H, Lymph % (Auto) 19.4, Sac % (Auto) 5.0, Eos % (Auto) 0.3, Baso % (Auto) 1.2 H, Absolute Neuts (auto) 8.0 H, Absolute Lymphs (auto) 2.12, Nucleated RBC % 0 03/09/22 12:15: Sodium 134 L, Potassium 3.9, Chloride 100, Carbon Dioxide 14.0 L , Anion Gap 20 H, BUN 8, Creatinine 0.96, Estim Creat Clear Calc 72.08, Est GFR (MDRD) Af Amer 92, Est GFR (MDRD) Non-Af 76, BUN/Creatinine Ratio 8.3 L, Glucose 240 H, Calcium 9.9, Troponin I High Sens 11 03/09/22 12:15: Acetone Level MODERATE H 03/09/22 12:15: Serum , Qual NEGATIVE 03/09/22 12:15: Phosphorus 3.3, Magnesium 2.2 03/09/22 12:15: Serum Osmolality 311 H 03/09/22 13:40: POC Glucose 101 03/09/22 14:19: POC Glucose 91 03/09/22 14:45: Urine Color Yellow, Urine Clarity Clear, Urine pH 5.0, Ur Specific Chambers 1.025, Urine Protein 100 H, Urine Glucose (UA) 1000 H, Urine Ketones 150 A*, Urine Occult Blood Negative, Urine Nitrite Negative, Urine Bilirubin Negative, Urine Urobilinogen Normal, Ur Leukocyte Esterase 100 H, Urine RBC 0 SEEN, Urine WBC 0-5 SEEN, Ur Squamous Epith Cells 0-5 SEEN, Urine Bacteria 1+, Urine Mucus 0 SEEN 03/09/22 15:16: POC Glucose 96 03/09/22 16:13: POC Glucose 98 03/09/22 16:35: Sodium 141, Potassium 3.9, Chloride 110 H, Carbon Dioxide 17.0 L , Anion Gap 14, BUN 8, Creatinine 0.62, Estim Creat Clear Calc 111.61, Est GFR (MDRD) Af Amer 152, Est GFR (MDRD) Non-Af 126, BUN/Creatinine Ratio 12.8, Glucose 107 H, Calcium 8.1 L 03/09/22 17:30: POC Glucose 130 H 03/09/22 18:08: POC Glucose 169 H 03/09/22 18:59: POC Glucose 296 H 03/09/22 20:25: Sodium 139, Potassium 4.3, Chloride 112 H, Carbon Dioxide 12.0 L , Anion Gap 15, BUN 6 L, Creatinine 0.66, Estim Creat Clear Calc 104.85, Est GFR (MDRD) Af Amer 144, Est GFR (MDRD) Non-Af 119, BUN/Creatinine Ratio 9.2 L, Glucose 278 H, Calcium 8.0 L 03/09/22 20:27: POC Glucose 250 H 03/09/22 22:02: POC Glucose 204 H 03/10/22 00:25: Sodium Cancelled, Potassium Cancelled, Chloride Cancelled, Carbon Dioxide Cancelled, Anion Gap Cancelled, BUN Cancelled, Creatinine Cancelled, Estim Creat Clear Calc Cancelled, Est GFR (MDRD) Af Amer Cancelled, Est GFR (MDRD) Non-Af Cancelled, BUN/Creatinine Ratio Cancelled, Glucose Cancelled, Calcium Cancelled 03/10/22 00:33: POC Glucose 398 H 03/10/22 00:50: Sodium 137, Potassium 4.4, Chloride 108 H, Carbon Dioxide 9.0 L* , Anion Gap 20 H, BUN 7, Creatinine 0.69, Estim Creat Clear Calc 100.29, Est GFR (MDRD) Af Amer 135, Est GFR (MDRD) Non-Af 112, BUN/Creatinine Ratio 10.1, Glucose 427 H, Calcium 8.2 L 03/10/22 02:50: POC Glucose 217 H 03/10/22 03:50: POC Glucose 168 H 03/10/22 04:47: POC Glucose 139 H 03/10/22 04:50: Sodium 139, Potassium 3.7, Chloride 113 H, Carbon Dioxide 15.0 L , Anion Gap 11, BUN 5 L, Creatinine 0.63, Estim Creat Clear Calc 109.84, Est GFR (MDRD) Af Amer 152, Est GFR (MDRD) Non-Af 125, BUN/Creatinine Ratio 8.0 L, Gluco se 157 H, Calcium 7.7 L 03/10/22 04:50: WBC 11.0, RBC 4.06 L, Hgb 11.8 L, Hct 35.8 L, MCV 88.2, MCH 29.1, MCHC 33.0, RDW Std Deviation 42.2, RDW Coeff of Jose Roberto 13.1, Plt Count 369, MPV 9.0, Immature Gran % (Auto) 1.200 H, Neut % (Auto) 70.3 H, Lymph % (Auto) 22.4, Sac % (Auto) 5.2, Eos % (Auto) 0.4, Baso % (Auto) 0.5, Absolute Neuts (au to) 7.7, Absolute Lymphs (auto) 2.45, Nucleated RBC % 0 03/10/22 04:50: Hemoglobin A1c 11.5 H 03/10/22 05:48: POC Glucose 140 H 03/10/22 06:43: POC Glucose 110 H ABG Data ABG results: ABG 03/09/22 12:26 Specimen Type MICHAEL VBG pH 7.34 VBG pO2 41 H VBG HCO3 16 L VBG Total CO2 17 L VBG O2 Sat (Calc) 75 H VBG Base Excess -10 L POC Mix VBG pCO2 Pt Tmp 29.2 L Radiography Diagnostic Testing: Radiology Impression Chest X-Ray 03/09/22 12:05 IMPRESSION: Normal x-ray examination of the chest. Electronically Signed: Harry Cantor MD at 13:03 EDT Reading Location ID and State: [facility] / [place] , Service support , Physical Exam Narrative Patient does not have nausea or vomiting. Patient is passing urine and good volume. General: Alert, Oriented x3, Cooperative HEENT: Atraumatic, PERRLA, EOMI, Normocephalic Oral: Oral mucosa dry. No Gingival or Mucosal Lesions/ Ulcerations Neck: Supple, No JVD, Negative Carotid Bruits Lungs: Air entry diminished in bilateral lung bases. No crepitation/rhonchi Cardiovascular: Regular rate, Regular Rhythm, Normal S1, Normal S2, No murmurs Abdomen: Bowel Sounds Present, Soft, Non Tender, Non-Distended : No renal angle tenderness. No suprapubic tenderness. Extremities: No edema, Capillary Refill Less than 3 Seconds Skin: No rashes, No breakdown Musculoskeletal: No Tenderness to Palpation of Joints or Extremities Neurological: Cranial nerves II-XII grossly intact, DTR 2+/4 and Symmetrical, Neuro grossly intact Psych/Mental Status: Normal Affect, Appropriate. Assessment & Plan Assessment/Plan (1) Type 1 diabetes, uncontrolled, with gastroparesis: (2) DKA (diabetic ketoacidoses): PLAN: 1. DKA with history of type 1 diabetes mellitus: Patient is being admitted in ICU. Anion gap 20, bicarb 14. Acetone moderate. Venous blood gas shows pH 7.34, mixed PCO2 29. At present patient denies nonadherence to insulin regimen another precipitating factor or future for DKA and therefore cause of DKA is unclear. Patient is admitted in ICU. IV fluid resuscitated. Patient was on 8.5 unit of insulin drip that dropped her blood sugar low 75-86 and then most recent 240. Advised to continue IV insulin drip with glucose more than 150. IV fluid as per DKA first with normal saline and then half-normal saline after serum sodium is normal. Monitor BMP every 4 hourly. Serum osmolality level high. 03/10: Patient had anion gap x2 closed yesterday evening but again it went high and bicarb normal. On insulin drip. Last bicarb 21. Anion gap closed x2. Transition to subcutaneous insulin when anion gap closed x2 and bicarb more than 18. Advised to continue overlap of 3 hours between Lantus 10 units first dose now and switching off insulin drip and IV fluid D5 half NS. Transfer order to floor in afternoon. A1c 11.5. 2. Hypertonic, hypovolemic hyponatremia: Patient serum osmolarity is due to high glucose. Patient on IV fluid normal saline and insulin drip. Hyponatremia resolved. Mild hypokalemia, potassium corrected 3. Type 1 diabetes mellitus with gastroparesis: Needs outpatient work-up for gastroparesis. 4. Hypertension: Blood pressure controlled, 122/78, 134/79. Continue home medication when oral is allowed. 5. Hypothyroidism: At home patient is on levothyroxine. TSH and free T4 tomorrow a.m. 7. Class I obesity with BMI of 32.5 kg/m? ? Weight loss advised 8. DVT prophylaxis ? Low risk. Encourage early ambulation. Charges/Coding Visit Charges Inpatient E&M: 63303 [facility] Hosp L3
[2022-03-10] MEDS: Dext 5%-0.45% NS 1,000 ML 150 ML IV (07:54)
[2022-03-10 08:01] LABS: Bedside Glucose 92 mg/dL (74-106)
[2022-03-10] MEDS: Insulin Glargine-YFGN 100 UNIT/ML Pen 10 UNIT SC ×2 (10:10→21:06)
[2022-03-10 11:31] LABS: Bedside Glucose 96 mg/dL (74-106)
[2022-03-10 11:31] LABS: Bedside Glucose 120 mg/dL (74-106)
[2022-03-10 11:41] LABS: Anion Gap 5 (5-15); BUN 5 mg/dL (7-18); BUN/Creat Ratio 8.6 RATIO (10-20); Calcium,Total 7.8 mg/dL (8.5-10.1); Chloride 115 mmol/L (98-107); Creatinine, Serum 0.58 mg/dL (0.55-1.02); EST Glomerular Filtration Rate 137 mL/min (>60); Est Glom Filt Rate - Afr Amer 166 mL/min (>60); Estimated Creatinine Clearance 119.31 ml/min; Glucose 91 mg/dL (74-106); Potassium 3.5 mmol/L (3.5-5.1); Sodium Level 141 mmol/L (136-145)
[2022-03-10 11:45] LABS: Bedside Glucose 103 mg/dL (74-106)
[2022-03-10 12:45] LABS: Bedside Glucose 109 mg/dL (74-106)
[2022-03-10] MEDS: Insulin Lispro 100 UNIT/ML INSULN.PEN 10 UNIT SC ×2 (14:14→17:29)
[2022-03-10] MEDS: Potassium Chloride Oral Tablet 20 MEQ 40 MEQ PO (14:18)
[2022-03-10 14:21] LABS: Bedside Glucose 146 mg/dL (74-106)
[2022-03-10 16:46] LABS: Bedside Glucose 223 mg/dL (74-106)
[2022-03-10] MEDS: Insulin Lispro 100 UNIT/ML INSULN.PEN SC ×2 (17:29→21:06)
[2022-03-10 21:21] LABS: Bedside Glucose 354 mg/dL (74-106)
[2022-03-11 03:22] VITALS: BP 117/64; PULSE 100; RESP 16; TEMP 36.8; O2SAT 98
[2022-03-11 06:08] LABS: Absolute Lymphocyte Count 2.68 X10^3/uL (0.83-4.51); Absolute Neutrophil Count 2.8 X10^3/uL (2.0-7.7); Basophil# 0.07 X10^3/uL; Basophil% 1.1 % (0-1); Eosinophil# 0.13 X10^3/uL; Eosinophils% 2.1 % (0-5); Hematocrit 38.3 % (37-47); Hemoglobin 12.4 g/dL (12.0-15.0); Lymphocyte # 2.68 X10^3/ul (0.83-4.51); Lymphocyte % 43.7 % (19-41); Mean Corp Hgb Conc 32.4 g/dL (32-36); Mean Corpuscular Hgb 29.2 pg (27.0-32.0); Mean Corpuscular Volume 90.1 fL (81-99); Mean Platelet Vol. 9.4 fl (6.2-12.0); Monocyte# 0.39 X10^3/uL; Monocyte% 6.4 % (0-10); NRBC Flagged by Analyzer 0 % (0-5); Neutrophil # 2.78 X10^3/uL (2.7-7.7); Neutrophil % 45.4 % (47-70); Platelet Count 319 K/mm3 (150-450); RBC Distribution Width SD 42.7 fl (35.1-43.9); Red Blood Count 4.25 M/mm3 (4.2-5.4); White Blood Count 6.1 K/mm3 (4.4-11.0)
[2022-03-11 06:45] LABS: Anion Gap 7 (5-15); BUN 6 mg/dL (7-18); BUN/Creat Ratio 11.3 RATIO (10-20); Calcium,Total 8.5 mg/dL (8.5-10.1); Chloride 110 mmol/L (98-107); Creatinine, Serum 0.53 mg/dL (0.55-1.02); EST Glomerular Filtration Rate 151 mL/min (>60); Est Glom Filt Rate - Afr Amer 183 mL/min (>60); Estimated Creatinine Clearance 130.57 ml/min; Glucose 293 mg/dL (74-106); Potassium 3.9 mmol/L (3.5-5.1); Sodium Level 137 mmol/L (136-145); T4 Free Direct 1.16 ng/dL (0.76-1.46); Thyroid Stim Hormone (TSH) 1.61 uIU/mL (0.358-3.74)
[2022-03-11] MEDS: Levothyroxine 50 MCG Tablet PO (06:45)
[2022-03-11 08:08] VITALS: BP 143/88; PULSE 98; RESP 18; TEMP 36.8; O2SAT 100
[2022-03-11] MEDS: Lisinopril 10 MG Tablet PO (08:12)
[2022-03-11] MEDS: Insulin Glargine-YFGN 100 UNIT/ML Pen 10 UNIT SC (08:12)
[2022-03-11] MEDS: Insulin Lispro 100 UNIT/ML INSULN.PEN 10 UNIT SC (08:14)
[2022-03-11] MEDS: Insulin Lispro 100 UNIT/ML INSULN.PEN SC (08:14)
--- NOTE | 2022-03-11 10:02 | DCINST_ITS ---
Discharge Instructions Diet Discharge Diet: 2000 Calorie Control Diet Activity Discharge Activity: Return to Normal Activity Follow Up Care Test Results: Test results from this visit will be discussed in further detail at your follow-up appointment, if applicable. Discharge Plan Admission Admit Date/Time: 03/09/22 12:54 Primary Reason for Your Visit: Acute DKA Attending Provider: Etta Meza Primary Care Provider: Ayaka Tsai NP Consulting Providers: Aaron Chiu Instructions Additional Instructions / Restrictions: Continue to monitor your blood sugars closely. Take your insulins as prescribed. You have been referred to an plant electrical engineer. Follow-up with your PCP within 2 weeks. Discharge Orders/Prescriptions Prescriptions: Continued lisinopril 20 mg tablet 30 mg PO DAILY 90 Days Qty: 135 RF: 3 levothyroxine 50 mcg tablet 50 mcg PO DAILY Qty: 90 RF: 3 Novolin R Regular U-100 Insuln 100 unit/mL Solution 10 unit SUBCUT TID RF: 0 Novolin N NPH U-100 Insulin 100 unit/mL Suspension 30 unit SUBCUT QHS RF: 0 Novolin N NPH U-100 Insulin 100 unit/mL Suspension 10 unit SUBCUT BREAKFAST RF: 0 Novolin R Regular U-100 Insuln 100 unit/mL Solution See Protocol unit SUBCUT ACHS RF: 0 Referrals / Follow Up: Ayaka Tsai NP, SALES PRODUCT MANAGER-C [Primary Care Provider] - Within 2 Weeks Shaan Hobbs MD [STAFF PHYSICIAN] - See Referral Note (as scheduled) Disposition Disposition (needs filled in before D/C Order can be placed): Home, Self Care
--- NOTE | 2022-03-11 10:05 | PCM.DC.SUM ---
Providers Date of Admission: 03/09/22 Date of Discharge: 03/11/22 Primary Care Physician: RIO Richmond Reason For Visit: DKA Diagnosis Discharge Diagnosis (1) Type 1 diabetes, uncontrolled, with gastroparesis: Status: Acute Code(s): E10.43 - Type 1 diabetes mellitus with diabetic autonomic (poly)neuropathy; K31.84 - Gastroparesis; E10.65 - Type 1 diabetes mellitus with hyperglycemia (2) DKA (diabetic ketoacidoses): Status: Acute Code(s): E11.10 - Type 2 diabetes mellitus with ketoacidosis without coma Medications at Discharge Home Medications levothyroxine 50 mcg tablet 50 mcg PO DAILY #90 tab 02/08/20 lisinopril 20 mg tablet 30 mg PO DAILY 90 Days #135 tab 02/08/20 Novolin N NPH U-100 Insulin 10 unit SUBCUT BREAKFAST 03/09/22 Novolin N NPH U-100 Insulin 30 unit SUBCUT QHS 03/09/22 Novolin R Regular U-100 Insuln 10 unit SUBCUT TID 03/09/22 Novolin R Regular U-100 Insuln See Protocol SUBCUT ACHS 03/09/22 Hospital Course Operations None Procedures None Summary of Care Provided Minutes Spent on Discharge: 35 Hospital Course: 22-year-old female past medical history of type I DM who comes in with nausea and progressive shortness of breath. Patient has history of recurrent admissions for acute DKA. Her last admission was on 02/05/22. She denies not taking her medications. She started trying to throw up a day prior to admission. She denied any symptoms of any infection. Patient was seen in the ED and found to be in acute DKA. Her blood glucose was was in the 300s. Patient took 15 units of fast acting insulin 45 minutes prior to admission. Her pH was 7.34, PCO2 was 29. Patient was admitted to ICU, managed with a DKA protocol. Patient continued to improve and [facility]. She was monitored on her home insulin regimen. Patient continued to be stable and was advised to follow-up with endocrinology as well as her primary care doctor in the outpatient. Physical Exam Narrative Physical exam: General: Alert, Oriented x3, Cooperative, No apparent distress HEENT: Atraumatic Oral: Moist Mucosa Neck: Supple Lungs: Clear to auscultation Cardiovascular: HS I+II, regular, no murmurs Abdomen: Bowel Sounds Present, Soft, Non Tender Extremities: No edema Skin: No rashes, No breakdown Neurological: Grossly intact Psych/Mental Status: Appropriate Weight / BMI Weight Weight: 84.1 kg Body Mass Index (BMI) 32.5 ABG / Lab / Microbiology Data Result Diagrams: 03/11/22 05:20 03/11/22 05:20 Laboratory: Laboratory Results - last 24 hr 03/10/22 09:06: POC Glucose 96 03/10/22 09:10: Sodium 141, Potassium 3.5, Chloride 115 H, Carbon Dioxide 21.0, Anion Gap 5, BUN 5 L, Creatinine 0.58, Estim Creat Clear Calc 119.31, Est GFR (MDRD) Af Amer 166, Est GFR (MDRD) Non-Af 137, BUN/Creatinine Ratio 8.6 L, Glucose 91, Calcium 7.8 L 03/10/22 10:10: POC Glucose 120 H 03/10/22 11:37: POC Glucose 103 03/10/22 12:34: POC Glucose 109 H 03/10/22 14:12: POC Glucose 146 H 03/10/22 16:38: POC Glucose 223 H 03/10/22 21:04: POC Glucose 354 H 03/11/22 05:20: WBC 6.1, RBC 4.25, Hgb 12.4, Hct 38.3, MCV 90.1, MCH 29.2, MCHC 32.4, RDW Std Deviation 42.7, RDW Coeff of Jose Roberto 13.0, Plt Count 319, MPV 9.4, Immature Gran % (Auto) 1.300 H, Neut % (Auto) 45.4 L, Lymph % (Auto) 43.7 H, [place] % (Auto) 6.4, Eos % (Auto) 2.1, Baso % (Auto) 1.1 H, Absolute Neuts (auto) 2.8, Absolute Lymphs (auto) 2.68, Nucleated RBC % 0 03/11/22 05:20: Sodium 137, Potassium 3.9, Chloride 110 H, Carbon Dioxide 20.0 L, Anion Gap 7, BUN 6 L, Creatinine 0.53 L, Estim Creat Clear Calc 130.57, Est GFR (MDRD) Af Amer 183, Est GFR (MDRD) Non-Af 151, BUN/Creatinine Ratio 11.3, Glucose 293 H, Calcium 8.5, TSH 1.61, Free T4 1.16 D/C Instructions Discharge Diet: 1999 Calorie Control Diet Meaningful Use Info Meaningful Use Diagnoses (Choose all that apply): None applicable Discharge Plan Admission Admit Date/Time: 03/09/22 12:54 Primary Reason for Your Visit: Acute DKA Attending Provider: Etta Meza Primary Care Provider: Ayaka Tsai NP Consulting Providers: Aaron Chiu Instructions Forms: Work / School Excuse Additional Instructions / Restrictions: Continue to monitor your blood sugars closely. Take your insulins as prescribed. You have been referred to an court security officer. Follow-up with your PCP within 2 weeks. Discharge Orders/Prescriptions Prescriptions: Continued lisinopril 20 mg tablet 30 mg PO DAILY 90 Days Qty: 135 RF: 3 levothyroxine 50 mcg tablet 50 mcg PO DAILY Qty: 90 RF: 3 Novolin R Regular U-100 Insuln 100 unit/mL Solution 10 unit SUBCUT TID RF: 0 Novolin N NPH U-100 Insulin 100 unit/mL Suspension 30 unit SUBCUT QHS RF: 0 Novolin N NPH U-100 Insulin 100 unit/mL Suspension 10 unit SUBCUT BREAKFAST RF: 0 Novolin R Regular U-100 Insuln 100 unit/mL Solution See Protocol unit SUBCUT ACHS RF: 0 Referrals / Follow Up: Shaan Hobbs MD [STAFF PHYSICIAN] - See Referral Note (as scheduled) Ayaka Tsai NP, CREDENTIALING SPECIALIST-C [Primary Care Provider] - Within 2 Weeks Disposition Disposition (needs filled in before D/C Order can be placed): Home, Self Care Charges/Coding Visit Charges Inpatient E&M: 54117 Disch Hosp
--- NOTE | 2022-03-11 11:40 | CASEMGMT ---
TAMARA REHMAN readmission note: Prior admission: Admitted 02/05 w/DKA. Discharged 02/08. Pt discharge w/new orders for insulin but d/t she had Novolin R and N at home, she did not want to use insulin ordered. She stated it was cheaper to use at [facility]. Hospitalist was notified and ok'd for these insulins to be interchanged. Pt did agree to getting the rx for atb. Current admission: Admitted 03/09 w/DKA. TAMARA REHMAN to room to talk w/pt. She states she has been taking her medications as prescribed and had a f/u appt w/Ayaka Tsai NP, since last admission. She states she has enough supplies for her glucometer and she has enough insulin. She states her insurance will not kick in for another 1 1/2 to 2 months yet. She was provided w/resources by last admit, including [facility] application, but states she has not completed them. TAMARA REHMAN offered for to meet w/her to review paperwork w/her and provide assistance, but she declines, stating, My dad has filled them out for me before and knows how to do it. I've been down this road before. TAMARA REHMAN informed her of [facility] clinic and [facility]. She voices understanding. She denies having any questions or concerns and denies needing any assistance. TAMARA REHMAN provided pt w/contact info for Dr Hobbs/endocrinology and is aware she is to f/u w/her w/in 2 2ks. She voices understanding and appreciation for the info. Jo-Ann FERGUSONN TAMARA REHMAN
--- NOTE | 2022-03-11 12:00 | CASEMGMT ---
TC to pt as she has left the hospital without an endocrinology appt set up. Left message on pt vm to return call with call back number. Pt is self pay, wanted to verify pt agreeable to be set up.
== END 2022-03-11 11:38 | disposition home or self-care (01) | DRG 638 ==
LOC: ED 12:24 → MS3 03-11 07:06 → ICU 03-11 15:21 → MS3 03-11 15:21
PROVIDERS: Admitting Provider Internal Medicine; Emergency Provider Emergency Medicine; PCP Nurse Practitioner; Visit Provider Internal Medicine
DX: E10.10 Type 1 diabetes mellitus with ketoacidosis without coma (principal); E87.1 Hypo-osmolality and hyponatremia; E10.43 Type 1 diabetes mellitus with diabetic autonomic (poly)neuropathy; Z79.4 Long term (current) use of insulin; E87.6 Hypokalemia; I10 Essential (primary) hypertension; E78.5 Hyperlipidemia, unspecified; E03.9 Hypothyroidism, unspecified; E66.9 Obesity, unspecified; Z68.32 Body mass index [BMI] 32.0-32.9, adult; Z79.890 Hormone replacement therapy; Z79.899 Other long term (current) drug therapy
CPT/HCPCS: 36415; 71045; 80048; 81001; 82009; 82803; 82962; 83036; 83735; 83930; 84100; 84439; 84443; 84484; 84703; 85025; 93005; 97802; 99284; J7030; A4216; J2405; J7799

== ENCOUNTER → 2023-04-07 | Outpatient (CLI) | payer OTHER, SELFPAY ==
[2023-04-07 14:35] LABS: Absolute Neutrophil Count 6.6 X10^3/uL (2.0-7.7); Basophil# 0.08 X10^3/uL; Basophil% 0.8 % (0-1); Eosinophil# 0.11 X10^3/uL; Eosinophils% 1.1 % (0-5); Hematocrit 39.9 % (37-47); Hemoglobin 12.8 g/dL (12.0-15.0); Lymphocyte % 24.4 % (19-41); Mean Corp Hgb Conc 32.1 g/dL (32-36); Mean Corpuscular Hgb 28.1 pg (27.0-32.0); Mean Corpuscular Volume 87.5 fL (81-99); Mean Platelet Vol. 9.6 fl (6.2-12.0); Monocyte% 6.1 % (0-10); NRBC Flagged by Analyzer 0 % (0-5); Neutrophil # 6.58 X10^3/uL (2.7-7.7); Platelet Count 430 K/mm3 (150-450); RBC Distribution Width SD 38.5 fl (35.1-43.9); Red Blood Count 4.56 M/mm3 (4.2-5.4); White Blood Count 9.8 K/mm3 (4.4-11.0)
[2023-04-07 14:48] LABS: Vitamin B12 299 pg/mL (211-911)
[2023-04-07 14:53] LABS: Hemoglobin A1c 10.6 % (3.8-5.6)
[2023-04-07 14:57] LABS: ALB/GLOB Ratio 0.5 RATIO (0.9-2.4); AST(SGOT) 19 U/L (15-37); Alanine Aminotransfer ALT/SGPT 29 U/L (13-56); Albumin, Serum 2.7 g/dL (3.2-5.0); Alkaline Phosphatase 204 U/L (45-117); Anion Gap 11 (5-15); BUN 8 mg/dL (7-18); BUN/Creat Ratio 12.2 RATIO (10-20); Calcium,Total 9.7 mg/dL (8.5-10.1); Chloride 104 mmol/L (98-107); Creatinine, Serum 0.66 mg/dL (0.55-1.02); EST Glomerular Filtration Rate 117 mL/min (>60); Est Glom Filt Rate - Afr Amer 142 mL/min (>60); Ferritin 95 ng/mL (8-252); Glucose 206 mg/dL (74-106); Lipase 12 U/L (13-75); Potassium 4.2 mmol/L (3.5-5.1); Protein, Total 7.7 g/dL (6.4-8.2); Sodium Level 137 mmol/L (136-145); Thyroid Stim Hormone (TSH) 1.21 uIU/mL (0.358-3.74)
[2023-04-07 19:30] LABS: Microalbumin:Creatinine Ratio 586.4 mg/g CRE (<30 mg/g CRE)
[2023-04-09 15:08] LABS: Deamidated Gliadin IgA 8 units (0-19); Deamidated Gliadin IgG 4 units (0-19); Endomysial Antibody IgA Negative (Negative); Immunoglobulin A 653 mg/dL (87-352); t-Transglutaminase IgA <2 U/mL (0-3)
== END | disposition home or self-care (01) ==
PROVIDERS: PCP Family Medicine; Visit Provider Family Medicine
DX: R19.7 Diarrhea, unspecified (principal); E10.9 Type 1 diabetes mellitus without complications
CPT/HCPCS: 36415; 80053; 82043; 82570; 82607; 82728; 82784; 83036; 83516; 83690; 84443; 85025; 86255

== ENCOUNTER → 2023-05-13 | Outpatient (CLI) | payer OTHER, SELFPAY ==
[2023-05-19 20:07] LABS: Pancreatic Elastase, Fecal < 50 (>200)
== END | disposition home or self-care (01) ==
PROVIDERS: PCP Family Medicine; Visit Provider Family Medicine
DX: R19.7 Diarrhea, unspecified (principal)
CPT/HCPCS: 82653; 87506

== ENCOUNTER → 2023-05-19 | Outpatient (CLI) | payer OTHER, SELFPAY ==
[2023-05-19 15:33] LABS: Erythrocyte Sedimentation Rate 42 mm/hr (0-30)
[2023-05-21 15:08] LABS: PROEL- A/G Ratio 0.8 (0.7-1.7); PROEL- Albumin 3.3 g/dL (2.9-4.4); PROEL- Alpha-1 Globulin 0.2 g/dL (0.0-0.4); PROEL- Alpha-2 Globulin 1.2 g/dL (0.4-1.0); PROEL- Beta Globulin 1.5 g/dL (0.7-1.3); PROEL- Globulin, Total 3.9 g/dL (2.2-3.9); PROEL- TOTAL PROTEIN 7.2 g/dL (6.0-8.5)
[2023-05-23 19:07] LABS: ANTINUCLEAR ANTIBODIES DIRECT Negative (Negative); Alternaria alternata <0.10 kU/L (Class 0); Aspergillus fumigatus <0.10 kU/L (Class 0); Bahia Grass <0.10 kU/L (Class 0); Beef <0.10 kU/L (Class 0); Bermuda Grass <0.10 kU/L (Class 0); Bluegrass, Kentucky <0.10 kU/L (Class 0); Cat Hair/Dander, Standard <0.10 kU/L (Class 0); Cedar, Mountain <0.10 kU/L (Class 0); Chocolate <0.10 kU/L (Class 0); Cladosporium herbarum <0.10 kU/L (Class 0); Cockroach, American <0.10 kU/L (Class 0); Corn <0.10 kU/L (Class 0); D farinae Mite <0.10 kU/L (Class 0); D pteronyssinus <0.10 kU/L (Class 0); Dog Epithelia <0.10 kU/L (Class 0); Egg, Whole <0.10 kU/L (Class 0); Elm, American White <0.10 kU/L (Class 0); Hazelnut Tree <0.10 kU/L (Class 0); Hickory, White <0.10 kU/L (Class 0); Johnson Grass <0.10 kU/L (Class 0); Maple/Box Elder <0.10 kU/L (Class 0); Milk (Cow) 0.13 kU/L (Class 0/I); Mucor racemosus <0.10 kU/L (Class 0); Mugwort <0.10 kU/L (Class 0); Mulberry, White <0.10 kU/L (Class 0); Nettle <0.10 kU/L (Class 0); Oak, White 0.18 kU/L (Class 0/I); Peanut <0.10 kU/L (Class 0); Penicillium chrysogen <0.10 kU/L (Class 0); Pigweed, Rough <0.10 kU/L (Class 0); Plantain, English <0.10 kU/L (Class 0); Pork <0.10 kU/L (Class 0); Ragweed, Short/Common <0.10 kU/L (Class 0); Sheep Sorrel(Dock) <0.10 kU/L (Class 0); Soybean <0.10 kU/L (Class 0); Stemphylium herbarum <0.10 kU/L (Class 0); Sweet Gum <0.10 kU/L (Class 0); Sycamore, American <0.10 kU/L (Class 0); Wheat <0.10 kU/L (Class 0)
== END | disposition home or self-care (01) ==
LOC: MTLAB 13:01
PROVIDERS: PCP Family Medicine; Referring Provider Family Medicine; Visit Provider Family Medicine
DX: R19.7 Diarrhea, unspecified (principal); R77.1 Abnormality of globulin
CPT/HCPCS: 36415; 84165; 85652; 86003; 86005; 86038; 86140

== ENCOUNTER → 2023-07-14 | Outpatient (CLI) | payer OTHER, SELFPAY ==
[2023-07-14 15:46] LABS: ALB/GLOB Ratio 0.6 RATIO (0.9-2.4); AST(SGOT) 15 U/L (15-37); Alanine Aminotransfer ALT/SGPT 27 U/L (13-56); Albumin, Serum 2.8 g/dL (3.2-5.0); Alkaline Phosphatase 154 U/L (45-117); Anion Gap 18 (5-15); BUN 6 mg/dL (7-18); BUN/Creat Ratio 6.8 RATIO (10-20); Calcium,Total 8.9 mg/dL (8.5-10.1); Chloride 102 mmol/L (98-107); Creatinine, Serum 0.88 mg/dL (0.55-1.02); EST Glomerular Filtration Rate 84 mL/min (>60); Est Glom Filt Rate - Afr Amer 102 mL/min (>60); Globulin 4.7 g/dL (2.2-4.2); Glucose 267 mg/dL (74-106); Magnesium 2.1 mg/dL (1.6-2.6); Potassium 3.6 mmol/L (3.5-5.1); Protein, Total 7.5 g/dL (6.4-8.2); Sodium Level 137 mmol/L (136-145); Thyroid Stim Hormone (TSH) 0.94 uIU/mL (0.358-3.74)
== END | disposition home or self-care (01) ==
LOC: MFPLAB 11:58
PROVIDERS: PCP Family Medicine; Visit Provider Family Medicine
DX: K86.89 Other specified diseases of pancreas (principal); R03.0 Elevated blood-pressure reading, without diagnosis of hypertension
CPT/HCPCS: 36415; 80053; 83735; 84443

== ENCOUNTER → 2023-08-18 | Outpatient (CLI) | payer OTHER, SELFPAY ==
[2023-08-18 18:10] LABS: AST(SGOT) 18 U/L (15-37); Alanine Aminotransfer ALT/SGPT 32 U/L (13-56); Albumin, Serum 2.9 g/dL (3.2-5.0); Alkaline Phosphatase 153 U/L (45-117); Bilirubin, Direct 0.09 mg/dL (0.00-0.30); Globulin 4.7 g/dL (2.2-4.2); Protein, Total 7.6 g/dL (6.4-8.2)
== END | disposition home or self-care (01) ==
PROVIDERS: PCP Family Medicine; Referring Provider Internal Medicine Gastroenterology; Visit Provider Internal Medicine Gastroenterology
DX: R19.7 Diarrhea, unspecified (principal)
CPT/HCPCS: 36415; 80076; 86140

== ENCOUNTER → 2023-08-27 | Outpatient (CLI) | payer OTHER, SELFPAY ==
[2023-09-01 13:07] LABS: Pancreatic Elastase, Fecal 59 (>200)
[2023-09-06 00:07] LABS: Calprotectin, Stool 52 ug/g (0-120); Fats, Neutral Increased (.); Fats, Total Increased (.)
== END | disposition home or self-care (01) ==
PROVIDERS: PCP Family Medicine; Referring Provider Internal Medicine Gastroenterology; Visit Provider Internal Medicine Gastroenterology
DX: R19.7 Diarrhea, unspecified (principal)
CPT/HCPCS: 82653; 82705; 83993

== ENCOUNTER → 2024-02-16 | Outpatient (CLI) | payer OTHER, SELFPAY ==
[2024-02-16 12:16] LABS: Absolute Neutrophil Count 7.6 X10^3/uL (2.0-7.7); Basophil# 0.12 X10^3/uL; Basophil% 1.1 % (0-1); Eosinophil# 0.14 X10^3/uL; Eosinophils% 1.3 % (0-5); Hematocrit 37.4 % (37-47); Hemoglobin 12.2 g/dL (12.0-15.0); Lymphocyte % 19.6 % (19-41); Mean Corp Hgb Conc 32.6 g/dL (32-36); Mean Corpuscular Hgb 28.1 pg (27.0-32.0); Mean Corpuscular Volume 86.2 fL (81-99); Mean Platelet Vol. 9.6 fl (6.2-12.0); Monocyte# 0.56 X10^3/uL; Monocyte% 5.2 % (0-10); NRBC Flagged by Analyzer 0 % (0-5); Neutrophil # 7.62 X10^3/uL (2.7-7.7); Neutrophil % 71.3 % (47-70); Platelet Count 427 K/mm3 (150-450); RBC Distribution Width CV 11.9 % (11.6-14.6); RBC Distribution Width SD 37.2 fl (35.1-43.9); Red Blood Count 4.34 M/mm3 (4.2-5.4); Reticulocyte Count 2.11 % (0.5-1.5); White Blood Count 10.7 K/mm3 (4.4-11.0)
[2024-02-16 12:42] LABS: Vitamin B12 341 pg/mL (211-911)
[2024-02-16 13:43] LABS: ALB/GLOB Ratio 0.6 RATIO (0.9-2.4); AST(SGOT) 22 U/L (15-37); Alanine Aminotransfer ALT/SGPT 25 U/L (13-56); Albumin, Serum 2.7 g/dL (3.2-5.0); Alkaline Phosphatase 151 U/L (45-117); Anion Gap 11 (5-15); BUN 10 mg/dL (7-18); BUN/Creat Ratio 15.8 RATIO (10-20); Calcium,Total 9.1 mg/dL (8.5-10.1); Chloride 105 mmol/L (98-107); Creatinine, Serum 0.63 mg/dL (0.55-1.02); EST Glomerular Filtration Rate 121 mL/min (>60); Est Glom Filt Rate - Afr Amer 147 mL/min (>60); Ferritin 50 ng/mL (8-252); Globulin 4.7 g/dL (2.2-4.2); Glucose 283 mg/dL (74-106); Iron 39 ug/dL (50-170); Iron Binding Capacity,Total 357 ug/dL (250-450); Magnesium 1.7 mg/dL (1.6-2.6); PERCENT IRON SATURATION 10.9 % (15.0-55.0); Protein, Total 7.4 g/dL (6.4-8.2); Sodium Level 139 mmol/L (136-145)
== END | disposition home or self-care (01) ==
LOC: MTLAB 09:20
PROVIDERS: PCP Family Medicine; Referring Provider Family Medicine; Visit Provider Family Medicine
DX: R00.0 Tachycardia, unspecified (principal); K86.89 Other specified diseases of pancreas
CPT/HCPCS: 36415; 80053; 82607; 82728; 82746; 83540; 83550; 83735; 85025; 85045

== ENCOUNTER → 2024-04-12 | Outpatient (CLI) | payer OTHER, SELFPAY ==
[2024-04-12 15:33] LABS: Absolute Lymphocyte Count 2.74 X10^3/uL (0.83-4.51); Absolute Neutrophil Count 6.8 X10^3/uL (2.0-7.7); Basophil# 0.13 X10^3/uL; Basophil% 1.2 % (0-1); Eosinophil# 0.16 X10^3/uL; Eosinophils% 1.5 % (0-5); Hematocrit 39.4 % (37-47); Hemoglobin 12.8 g/dL (12.0-15.0); Lymphocyte # 2.74 X10^3/ul (0.83-4.51); Lymphocyte % 25.8 % (19-41); Mean Corp Hgb Conc 32.5 g/dL (32-36); Mean Corpuscular Hgb 27.6 pg (27.0-32.0); Mean Corpuscular Volume 85.1 fL (81-99); Mean Platelet Vol. 9.7 fl (6.2-12.0); Monocyte# 0.69 X10^3/uL; Monocyte% 6.5 % (0-10); NRBC Flagged by Analyzer 0 % (0-5); Neutrophil # 6.83 X10^3/uL (2.7-7.7); Neutrophil % 64.5 % (47-70); Platelet Count 433 K/mm3 (150-450); RBC Distribution Width SD 37.2 fl (35.1-43.9); Red Blood Count 4.63 M/mm3 (4.2-5.4); White Blood Count 10.6 K/mm3 (4.4-11.0)
[2024-04-12 16:52] LABS: ALB/GLOB Ratio 0.6 RATIO (0.9-2.4); AST(SGOT) 15 U/L (15-37); Alanine Aminotransfer ALT/SGPT 19 U/L (13-56); Albumin, Serum 3.1 g/dL (3.2-5.0); Alkaline Phosphatase 154 U/L (45-117); Anion Gap 10 (5-15); BUN 9 mg/dL (7-18); BUN/Creat Ratio 15.6 RATIO (10-20); Calcium,Total 9.5 mg/dL (8.5-10.1); Chloride 101 mmol/L (98-107); Creatinine, Serum 0.58 mg/dL (0.55-1.02); EST Glomerular Filtration Rate 135 mL/min (>60); Est Glom Filt Rate - Afr Amer 163 mL/min (>60); Globulin 4.8 g/dL (2.2-4.2); Glucose 428 mg/dL (74-106); Lipase 43 U/L (13-75); Potassium 3.9 mmol/L (3.5-5.1); Protein, Total 7.9 g/dL (6.4-8.2); Sodium Level 136 mmol/L (136-145)
[2024-04-12 17:17] LABS: Hemoglobin A1c 9.7 % (3.8-5.6)
== END | disposition home or self-care (01) ==
LOC: MFPLAB 14:11
PROVIDERS: PCP Family Medicine; Visit Provider Family Medicine
DX: E13.43 Other specified diabetes mellitus with diabetic autonomic (poly)neuropathy (principal); K86.89 Other specified diseases of pancreas; K31.84 Gastroparesis
CPT/HCPCS: 36415; 80053; 83036; 83690; 85025; 86140

== ENCOUNTER → 2024-05-27 | Outpatient (CLI) | payer OTHER, SELFPAY ==
[2024-05-27 18:23] LABS: ALB/GLOB Ratio 0.6 RATIO (0.9-2.4); AST(SGOT) 20 U/L (15-37); Alanine Aminotransfer ALT/SGPT 18 U/L (13-56); Albumin, Serum 2.8 g/dL (3.2-5.0); Alkaline Phosphatase 138 U/L (45-117); Anion Gap 8 (5-15); BUN 7 mg/dL (7-18); Calcium,Total 9.2 mg/dL (8.5-10.1); Chloride 107 mmol/L (98-107); Creatinine, Serum 0.47 mg/dL (0.55-1.02); EST Glomerular Filtration Rate 172 mL/min (>60); Est Glom Filt Rate - Afr Amer 208 mL/min (>60); Globulin 4.4 g/dL (2.2-4.2); Glucose 160 mg/dL (74-106); Potassium 3.7 mmol/L (3.5-5.1); Protein, Total 7.2 g/dL (6.4-8.2); Sodium Level 139 mmol/L (136-145); Thyroid Stim Hormone (TSH) 3.12 uIU/mL (0.358-3.74)
[2024-06-01 11:59] LABS: Adrenocorticotropic Hormone 16.9 pg/mL (7.2-63.3)
== END | disposition home or self-care (01) ==
LOC: MFPLAB 15:07
PROVIDERS: PCP Family Medicine; Visit Provider Family Medicine
DX: E27.9 Disorder of adrenal gland, unspecified (principal); E10.9 Type 1 diabetes mellitus without complications; R19.7 Diarrhea, unspecified
CPT/HCPCS: 36415; 80053; 82024; 82533; 82627; 84443; 82626

== ENCOUNTER → 2024-05-31 | Outpatient (CLI) | payer OTHER, SELFPAY ==
[2024-05-31 11:00] LABS: 24HR. Urine Creatinine 0.81 g/24 HR (0.70-1.90)
[2024-06-03 13:08] LABS: Cortisol, Free 24Ur 64 ug/24 hr (6-42); Cortisol, Urinary Free 21 ug/L (Undefined); H. PYLORI STOOL AG Negative (Negative)
== END | disposition home or self-care (01) ==
LOC: MFPLAB 09:43
PROVIDERS: PCP Family Medicine; Visit Provider Family Medicine
DX: R19.7 Diarrhea, unspecified (principal)
CPT/HCPCS: 81050; 82530; 82570; 87177; 87209; 87338; 87506

== ENCOUNTER → 2024-06-14 | Outpatient (CLI) | payer OTHER, SELFPAY ==
[2024-06-14 15:17] LABS: Absolute Lymphocyte Count 2.53 X10^3/uL (0.83-4.51); Absolute Neutrophil Count 6.4 X10^3/uL (2.0-7.7); Basophil# 0.12 X10^3/uL; Basophil% 1.2 % (0-1); Hematocrit 39.1 % (37-47); Hemoglobin 12.8 g/dL (12.0-15.0); Lymphocyte # 2.53 X10^3/ul (0.83-4.51); Lymphocyte % 26.1 % (19-41); Mean Corp Hgb Conc 32.7 g/dL (32-36); Mean Corpuscular Hgb 27.6 pg (27.0-32.0); Mean Corpuscular Volume 84.3 fL (81-99); Mean Platelet Vol. 9.3 fl (6.2-12.0); Monocyte# 0.52 X10^3/uL; Monocyte% 5.4 % (0-10); NRBC Flagged by Analyzer 0 % (0-5); Neutrophil # 6.37 X10^3/uL (2.7-7.7); Neutrophil % 65.7 % (47-70); Platelet Count 391 K/mm3 (150-450); RBC Distribution Width CV 12.3 % (11.6-14.6); RBC Distribution Width SD 37.8 fl (35.1-43.9); Red Blood Count 4.64 M/mm3 (4.2-5.4); White Blood Count 9.7 K/mm3 (4.4-11.0)
[2024-06-14 15:45] LABS: Hemoglobin A1c 9.2 % (3.8-5.6)
[2024-06-14 16:10] LABS: ALB/GLOB Ratio 0.6 RATIO (0.9-2.4); AST(SGOT) 36 U/L (15-37); Alanine Aminotransfer ALT/SGPT 34 U/L (13-56); Albumin, Serum 2.7 g/dL (3.2-5.0); Alkaline Phosphatase 151 U/L (45-117); Anion Gap 17 (5-15); BUN 7 mg/dL (7-18); Calcium,Total 9.6 mg/dL (8.5-10.1); Chloride 104 mmol/L (98-107); EST Glomerular Filtration Rate 108 mL/min (>60); Est Glom Filt Rate - Afr Amer 131 mL/min (>60); Globulin 4.6 g/dL (2.2-4.2); Glucose 161 mg/dL (74-106); Potassium 3.4 mmol/L (3.5-5.1); Protein, Total 7.3 g/dL (6.4-8.2); Sodium Level 139 mmol/L (136-145)
== END | disposition home or self-care (01) ==
LOC: MTLAB 10:59
PROVIDERS: PCP Family Medicine; Referring Provider Family Medicine; Visit Provider Family Medicine
DX: E10.9 Type 1 diabetes mellitus without complications (principal)
CPT/HCPCS: 36415; 80053; 83036; 85025

== ENCOUNTER → 2024-07-06 | Outpatient (CLI) | payer OTHER, SELFPAY ==
--- NOTE | 2024-07-06 11:21 | RAD_ITS ---
STUDY: X-RAY CHEST REASON FOR EXAM: Female, 24 years old. Shortness of breath. TECHNIQUE: Frontal and lateral views of the chest. COMPARISON: March 09, 2022 FINDINGS: The lungs are clear and expanded. There is no demonstrated pleural abnormality. Normal size heart. Normal mediastinum and wojciech. Normal visualized pulmonary arteries. Normal visualized aortic arch and descending thoracic aorta. Normal visualized thoracic spine. Normal visualized ribs, clavicles, and shoulders. No abnormality of the visualized soft tissue structures of the upper abdomen. RAD/Chest PA and Lateral IMPRESSION: No interval change and no acute or active cardiopulmonary disease. Electronically Signed: Frank Womack MD at 12:58 EDT ,
== END | disposition home or self-care (01) ==
LOC: MTRAD 11:20
PROVIDERS: PCP Family Medicine; Referring Provider Family Medicine; Visit Provider Family Medicine
DX: R06.02 Shortness of breath (principal)
CPT/HCPCS: 71046

== ENCOUNTER → 2024-07-22 | Outpatient (CLI) | payer OTHER, SELFPAY | END | disposition home or self-care (01) | PROVIDERS: PCP Family Medicine; Referring Provider Family Medicine; Visit Provider Family Medicine | DX: R06.02 Shortness of breath (principal) | CPT/HCPCS: 94060; 94726; 94729 ==

== ENCOUNTER 2024-07-30 17:53 | Emergency (ER) | payer OTHER, SELFPAY ==
[2024-07-30 17:55] VITALS: BP 124/89; PULSE 128; RESP 25; TEMP 35.5; O2SAT 100; BMI 29.8
[2024-07-30 18:21] VITALS: O2SAT 100
[2024-07-30 18:29] LABS: Absolute Lymphocyte Count 2.57 X10^3/uL (0.83-4.51); Absolute Neutrophil Count 8.6 X10^3/uL (2.0-7.7); Basophil# 0.15 X10^3/uL; Basophil% 1.2 % (0-1); Eosinophil# 0.11 X10^3/uL; Eosinophils% 0.9 % (0-5); Hematocrit 41.9 % (37-47); Hemoglobin 13.7 g/dL (12.0-15.0); Lymphocyte # 2.57 X10^3/ul (0.83-4.51); Mean Corp Hgb Conc 32.7 g/dL (32-36); Mean Corpuscular Hgb 28.4 pg (27.0-32.0); Mean Corpuscular Volume 86.7 fL (81-99); Mean Platelet Vol. 9.2 fl (6.2-12.0); Monocyte# 0.75 X10^3/uL; Monocyte% 6.1 % (0-10); NRBC Flagged by Analyzer 0 % (0-5); Neutrophil # 8.59 X10^3/uL (2.7-7.7); Neutrophil % 70.1 % (47-70); Platelet Count 448 K/mm3 (150-450); RBC Distribution Width CV 12.8 % (11.6-14.6); RBC Distribution Width SD 40.2 fl (35.1-43.9); Red Blood Count 4.83 M/mm3 (4.2-5.4); White Blood Count 12.3 K/mm3 (4.4-11.0)
--- NOTE | 2024-07-30 18:30 | RAD_ITS ---
STUDY: X-RAY CHEST REASON FOR EXAM: Female, 24 years old. Cough TECHNIQUE: PA and lateral COMPARISON: None. FINDINGS: The lungs are clear and expanded. There is no demonstrated pleural abnormality. Normal size heart. Normal mediastinum and wojciech. Normal visualized pulmonary arteries. Normal visualized aortic arch and descending thoracic aorta. Dorsal spine demonstrates dextroscoliosis. Normal visualized ribs, clavicles, and shoulders. There is no demonstrated abnormality of the visualized soft tissue structures of the upper abdomen. RAD/Chest PA and Lateral IMPRESSION: No acute cardiopulmonary pathology Electronically Signed: Dimas Sanford MD at 18:53 EDT ,
[2024-07-30 18:46] LABS: ALB/GLOB Ratio 0.7 RATIO (0.9-2.4); AST(SGOT) 28 U/L (15-37); Alanine Aminotransfer ALT/SGPT 45 U/L (13-56); Albumin, Serum 3.2 g/dL (3.2-5.0); Alkaline Phosphatase 185 U/L (45-117); Anion Gap 14 (5-15); BUN 10 mg/dL (7-18); BUN/Creat Ratio 9.5 RATIO (10-20); Calcium,Total 10.1 mg/dL (8.5-10.1); Chloride 104 mmol/L (98-107); Creatinine, Serum 1.05 mg/dL (0.55-1.02); EST Glomerular Filtration Rate 68 mL/min (>60); Est Glom Filt Rate - Afr Amer 82 mL/min (>60); Estimated Creatinine Clearance 77.15 ml/min; Globulin 4.9 g/dL (2.2-4.2); Glucose 121 mg/dL (74-106); Potassium 3.6 mmol/L (3.5-5.1); Protein, Total 8.1 g/dL (6.4-8.2); Sodium Level 139 mmol/L (136-145)
[2024-07-30 19:00] VITALS: PULSE 122; RESP 16; O2SAT 99
[2024-07-30 20:00] VITALS: BP 118/86; PULSE 108; RESP 18; TEMP 36.6; O2SAT 97
--- NOTE | 2024-07-30 20:26 | ED.VIS.DYS ---
HPI History of Present Illness Chief Complaint: Shortness of Breath Detail of Chief Complaint: Shortness of breath, wheezing, cough, recent PFT Informant: patient and family Onset/Context/Timing Onset: Weeks Context: sudden Timing: Intermittent Quality: Positive for Wheezing; Negative for Dyspnea on exertion, Orthopnea or PND Current Severity: Moderate Maximum Severity: Severe Worsened by: Nothing (Patient has symptoms when she gets excited. This occurred during exit interview) Relieved by: Nothing Associated Symptoms cough and rhinorrhea; Negative for post nasal drip, ear pain, fever, sore throat, subjective, chills or sweats Chest Pain: Positive for None Narrative Narrative: Patient is a 24-year-old female. She has history of type 1 diabetes with gastroparesis, overweight, and recent PFT for evaluation of asthma because of reported wheezing. Patient denies tasting blood in the back of her throat when she has 1 of these episodes. Patient becomes very anxious and tearful. Patient denies history of VTE. She has no risk factors for VTE. She denies black or maroon-colored stool. She denies pain with breathing. PE Risk Factors: Negative for Cancer, OCP + Smoking + > 35, Prior DVT or PE, Recent immobilization, Recent surgery or Recent travel Prior similar symptoms: Yes Recent Illness/Hospitalization: No [facility] Medical History Hypertension Anxiety and depression Hypothyroidism Dyslipidemia (high LDL; low HDL) Home Medications ?Medication ?Instructions ?Recorded ?Last Taken ?Type levothyroxine 50 mcg tablet 50 mcg PO DAILY thyroid #90 tabs 02/08/20 Unknown Rx lisinopril 20 mg tablet 30 mg (1.5 x 20 mg) PO DAILY blood 02/08/20 Unknown Rx pressure 3 months #135 tabs insulin NPH isoph U-100 human 100 10 unit subcut BREAKFAST Check 03/09/22 Unknown History unit/mL subcutaneous suspension with primary doctor (Novolin N NPH U-100 Insulin isophane) insulin NPH isoph U-100 human 100 30 unit subcut QHS Check with 03/09/22 Unknown History unit/mL subcutaneous suspension primary doctor (Novolin N NPH U-100 Insulin isophane) insulin regular human 100 unit/mL 10 unit subcut TID Check with 03/09/22 Unknown History injection solution (Novolin R primary doctor Regular U-100 Insulin) insulin regular human 100 unit/mL See Protocol subcut ACHS Check 03/09/22 Unknown History injection solution (Novolin R with primary doctor Regular U-100 Insulin) clorazepate dipotassium 3.75 mg 3.75 mg PO TID 10 days #30 tabs 07/30/24 Unknown Rx tablet Allergy/AdvReac Type Severity Reaction Status Date / Time No Known Allergies Allergy Verified 07/30/24 17:55 Family History Other CVA (cerebral vascular accident) Diabetes Heart disease Hypertension Surgical History Hx of tympanostomy tubes History of tonsillectomy Social History Smoking Status: Never smoker ROS ROS ED Constitutional Constitutional ED: Denies chills, fever(s) or sweats Eyes Eyes: Denies blurry vision or change in vision ENT ENT ED: Reports rhinorrhea; Denies ear pain or sore throat Cardiovascular Cardiovascular: Denies chest pain, orthopnea, palpitations or paroxysmal nocturnal dyspnea Respiratory/Chest Respiratory/Chest: Reports cough and dyspnea; Denies dyspnea on exertion, orthopnea, paroxysmal nocturnal dyspnea or sputum Gastrointestinal Gastrointestinal: Reports nausea and other Details: History of gastroparesis due to diabetes. ; Denies abdominal pain or vomiting Genitourinary Genitourinary ED: Denies dysuria, hematuria or urinary frequency Musculoskeletal Musculoskeletal: Denies back pain or neck pain Neurologic Neurologic: Reports paresthesias RUE, RLE, LUE and LLE; Denies headache(s) or weakness Psychiatric Psychiatric: Reports anxiety and depression; Denies suicidal ideation Endocrine Endocrinology: Reports other Details: Patient has history of hypothyroidism on levothyroxine. ; Denies cold intolerance or heat intolerance Hematologic/Lymphatic Hematologic/Lymphatic: Denies easy bleeding or easy bruising EXAM Physical Exam Const Vital Signs: 07/30/24 17:55 07/30/24 18:21 07/30/24 19:00 Temperature 96 F L Temperature Source Temporal Pulse Rate 128 H 122 H Respiratory Rate 25 H 16 Respiratory Effort Short of Breath Respiratory Depth Shallow Respiratory Pattern Tachypnea Blood Pressure 124/89 H Blood Pressure Mean 100 Pulse Ox 100 99 Oxygen Delivery Method Room Air Room Air Room Air Positive well nourished and well developed Constitutional Narrative: Patient is anxious, tearful. General Appearance ED: well developed and pallor; Negative for NAD HEENT Reports TM's clear and moist mucous membranes HEENT Narrative: Nares pain with slight clear discharge. Posterior pharynx out erythema or exudate. atraumatic; Negative for tenderness Tympanic Membrane ED: Yes TM's clear Eyes PERRL and EOMs intact bilaterally General Eye ED: Negative for pale conjunctiva or scleral icterus Neck no lymphadenopathy, supple, no meningeal signs and no JVD Neck Narrative: Trachea is midline. There is no obvious stridor. Resp normal respiratory effort and clear to auscultation bilaterally Resp Narrative: With forced expiration there is abnormal sounds which appears to be upper airway. This raises concern for VCD. Cardio regular rhythm, S1 normal heart sound, S2 normal heart sound and no murmurs Rate: tachycardic GI non-tender, non-distended and no masses Auscultation: normoactive bowel sounds Palpation: soft Back/Spine no CVA tenderness Extremity Extremity Narrative: There is no asymmetry, swelling, discoloration, leg vein distention, palpable cords or tenderness along the distribution of the deep venous system. Neuro oriented x3 and CN's II-XII intact bilaterally Hubbard Coma Scale: document GCS findings Spontaneous Obeys Commands Oriented 15 Sensorium / Orientation: alert Psych Mood & Affect: anxious Skin no wounds and skin turgor normal General Skin Exam: pallor; Negative for jaundice Lesions: no lesions Rashes: no rashes MDM MDM MDM Narrative Medical decision making narrative: PFT was reviewed. PFT reveals irreversible moderate large airway obstruction ventilatory defect with preserved lung volumes and diffusing capacity. Suspect patient has VCD. Will obtain x-ray to evaluate for pneumonia, CBC to rule out anemia since she appears pale, since she is diabetic obtain electrolyte panel to assess glucose anion gap electrolytes. Lab Data Attestation: I reviewed the patient's lab results. Lab results narrative: CBC reveals a mildly elevated white count which is unremarkable and nonspecific. Competence of metabolic panel was a glucose of 121 with a normal CO2 anion gap. Her creatinine is almost doubled. Creatinine is 1.05 with a GFR of 68. Prior creatinines were 0.6-0.7. Labs: Laboratory Results - last 24 hr 07/30/24 18:15 WBC 12.3 H RBC 4.83 Hgb 13.7 Hct 41.9 MCV 86.7 MCH 28.4 MCHC 32.7 RDW Std Deviation 40.2 RDW Coeff of Jose Roberto 12.8 Plt Count 448 MPV 9.2 Immature Gran % (Auto) 0.700 Neut % (Auto) 70.1 H Lymph % (Auto) 21.0 Candler % (Auto) 6.1 Eos % (Auto) 0.9 Baso % (Auto) 1.2 H Absolute Neuts (auto) 8.6 H Absolute Lymphs (auto) 2.57 Nucleated RBC % 0 Sodium 139 Potassium 3.6 Chloride 104 Carbon Dioxide 21.0 Anion Gap 14 BUN 10 Creatinine 1.05 H Estim Creat Clear Calc 77.15 Est GFR (MDRD) Af Amer 82 Est GFR (MDRD) Non-Af 68 BUN/Creatinine Ratio 9.5 L Glucose 121 H Calcium 10.1 Total Bilirubin 0.40 AST 28 ALT 45 Alkaline Phosphatase 185 H Total Protein 8.1 Albumin 3.2 Globulin 4.9 H Albumin/Globulin Ratio 0.7 L Radiography Chest X-Ray - ED: 2 View, Read by ED Physician, Normal, Heart, Lungs, Mediastinum, Bony Structures and No Acute Disease Diagnostic Testing: Clinical Impression(s) from Imaging Studies Chest X-Ray 07/30/24 18:30 IMPRESSION: No acute cardiopulmonary pathology Electronically Signed: Dimas Sanford MD at 18:53 EDT Reading Location ID and State: [facility] / [place] Tel , Service support , Rhythm Strip Rhythm Strip: Sinus Tach Rate: 116 Ectopy: None Treatment and Re-Evaluation :: During exit interview and patient heard certain terms she became anxious and had abnormal respiratory sounds which raises concern that this may represent VCD. She will need referral to pulmonology and specifically recycling worker to perform scope to determine if there is vocal cord dysfunction. If there is vocal cord dysfunction she will need referral to speech therapy. Since she has gastric paresis I was going to order Reglan however she states her insurance will not cover this. Suspect this is made worse because of anxiety reaction. Will place on low-dose Tranxene. Discharge Plan Triage Chief Complaint: Shortness of Breath ED Provider: Agarwal,Everardo Dx/Rx/DC Orders Clinical Impression: Anxiety reaction, Type 1 diabetes, uncontrolled, with gastroparesis, Vocal cord dysfunction Instructions: Vocal Cord Dysfunction (VCD), ED Anxiety Reaction Prescriptions: New clorazepate dipotassium 3.75 mg tablet 3.75 mg PO TID 10 Days Qty: 30 0RF No Action lisinopril 20 mg tablet 30 mg PO DAILY 90 Days Qty: 135 3RF levothyroxine 50 mcg tablet 50 mcg PO DAILY Qty: 90 3RF Novolin R Regular U100 Insulin 100 unit/mL Solution 10 unit SUBCUT TID Novolin N NPH U-100 Insulin 100 unit/mL Suspension 30 unit SUBCUT QHS Novolin N NPH U-100 Insulin 100 unit/mL Suspension 10 unit SUBCUT BREAKFAST Novolin R Regular U100 Insulin 100 unit/mL Solution See Protocol SUBCUT ACHS Protocol: 6. Sliding Scale Insulin Custom Condition: mg/dl range Dose/Route: Number of Units Protocol Text: Custom Sliding Scale Primary Care Provider: David Fong Referrals: David Fong MD [Primary Care Provider] - Activity Restrictions/Additional Instructions: 1. Call Dr. David Fong for referral to recycling worker to perform assessment for vocal cord dysfunction. Print Language: Hong Konger Disposition Disposition: Home, Self Care
== END 2024-07-30 21:01 | disposition home or self-care (01) ==
PROVIDERS: Emergency Provider Emergency Medicine; PCP Family Medicine; Visit Provider Emergency Medicine
DX: F41.1 Generalized anxiety disorder (principal); E10.43 Type 1 diabetes mellitus with diabetic autonomic (poly)neuropathy; E66.3 Overweight
CPT/HCPCS: 71046; 80053; 85025; 87631; 99284; A4216

== ENCOUNTER → 2024-08-09 | Outpatient (CLI) | payer OTHER, SELFPAY ==
[2024-08-11 08:13] LABS: Alpha Antitrypsin Serum 126 mg/dL (100-188)
== END | disposition home or self-care (01) ==
LOC: MFPLAB 11:57
PROVIDERS: PCP Family Medicine; Visit Provider Family Medicine
DX: R06.02 Shortness of breath (principal)
CPT/HCPCS: 36415; 82103

== ENCOUNTER → 2024-11-08 | Outpatient (CLI) | payer BC, SELFPAY ==
--- NOTE | 2024-11-08 10:54 | RAD_ITS ---
STUDY: X-RAY CHEST REASON FOR EXAM: Female, 24 years old. COUGH TECHNIQUE: PA and lateral views of the chest. COMPARISON: Comparison is made with prior study dated July 30, 2024. FINDINGS: The lungs are clear and expanded. There is no demonstrated pleural abnormality. Normal size heart. Normal mediastinum and wojciech. Normal visualized pulmonary arteries. Normal visualized aortic arch and descending thoracic aorta. Normal visualized thoracic spine. Normal visualized ribs, clavicles, and shoulders. There is no demonstrated abnormality of the visualized soft tissue structures of the upper abdomen. RAD/Chest PA and Lateral IMPRESSION: Normal x-ray examination of the chest. Electronically Signed: Claude Chauhan MD at 14:39 EST ,
== END | disposition home or self-care (01) ==
LOC: MTRAD 10:44
PROVIDERS: PCP Family Medicine; Referring Provider Family Medicine; Visit Provider Family Medicine
DX: R05.9 Cough, unspecified (principal)
CPT/HCPCS: 71046

== ENCOUNTER → 2024-12-20 | Outpatient (CLI) | payer BC, SELFPAY ==
[2024-12-20 15:40] LABS: Absolute Lymphocyte Count 2.66 X10^3/uL (0.83-4.51); Absolute Neutrophil Count 6.8 X10^3/uL (2.0-7.7); Basophil# 0.16 X10^3/uL; Basophil% 1.6 % (0-1); Eosinophil# 0.16 X10^3/uL; Eosinophils% 1.6 % (0-5); Hematocrit 40.7 % (37-47); Hemoglobin 13.6 g/dL (12.0-15.0); Lymphocyte # 2.66 X10^3/ul (0.83-4.51); Lymphocyte % 25.9 % (19-41); Mean Corp Hgb Conc 33.4 g/dL (32-36); Mean Corpuscular Hgb 29.8 pg (27.0-32.0); Mean Corpuscular Volume 89.1 fL (81-99); Mean Platelet Vol. 9.8 fl (6.2-12.0); Monocyte# 0.43 X10^3/uL; Monocyte% 4.2 % (0-10); NRBC Flagged by Analyzer 0 % (0-5); Neutrophil # 6.81 X10^3/uL (2.7-7.7); Neutrophil % 66.1 % (47-70); Platelet Count 442 K/mm3 (150-450); RBC Distribution Width CV 11.7 % (11.6-14.6); RBC Distribution Width SD 37.4 fl (35.1-43.9); Red Blood Count 4.57 M/mm3 (4.2-5.4); White Blood Count 10.3 K/mm3 (4.4-11.0)
[2024-12-20 23:52] LABS: AST(SGOT) 37 U/L (<=31); Alanine Aminotransfer ALT/SGPT 42 U/L (<=34); Albumin, Serum 3.9 g/dL (3.5-5.0); Alkaline Phosphatase 131 U/L (35-104); Anion Gap 16 (5-15); BUN 9 mg/dL (4-19); BUN/Creat Ratio 16.3 RATIO (10-20); Calcium 9.3 mg/dL (7.6-11.0); Carbon Dioxide 17.7 mmol/L (22.0-29.0); Chloride 106 mmol/L (96-108); Creatinine, Serum 0.55 mg/dL (0.70-1.20); EST Glomerular Filtration Rate 130 (>60); Globulin 3.7 g/dL (2.2-4.2); Glucose 201 mg/dL (70-99); Magnesium 1.9 mg/dL (1.5-2.2); Potassium 3.7 mmol/L (3.3-5.1); Protein, Total 7.6 g/dL (5.9-8.4); Sodium Level 140 mmol/L (133-145); Total Bilirubin 0.33 mg/dL (0.00-1.30)
[2024-12-22 12:08] LABS: Prealbumin 24 mg/dL (14-35)
== END | disposition home or self-care (01) ==
LOC: MTLAB 12:37
PROVIDERS: PCP Family Medicine; Referring Provider Family Medicine; Visit Provider Family Medicine
DX: E10.9 Type 1 diabetes mellitus without complications (principal); K86.89 Other specified diseases of pancreas
CPT/HCPCS: 36415; 80053; 83735; 84134; 85025

== ENCOUNTER → 2025-03-21 | Outpatient (CLI) | payer BC, SELFPAY ==
--- NOTE | 2025-03-21 09:00 | US_ITS ---
PROCEDURE: ABDOMEN LIMITED 03/21/2025 REASON FOR EXAM: N/V/ABD PAIN TECHNIQUE: Complete abdominal ultrasound warner-scale images with color doppler. PATIENT PREPARATION: Per protocol COMPARISON: None FINDINGS: Liver: Increased in size measuring up to 24.7 cm. Increased and heterogeneous echotexture. Gallbladder: Sludge noted. No pericholecystic fluid. Negative Marvin's sign. Gallbladder wall is unremarkable. Common bile duct: Measures 5.6 mm. No intrahepatic biliary dilatation.. Pancreas: Increased echogenicity Kidneys: The right kidney measures 12.4 cm. No hydronephrosis. US/Abdomen Limited IMPRESSION: Hepatomegaly and hepatic steatosis. No acute cholecystitis. Nonspecific incre ased echogenicity of the pancreas. Reading Location: [id number]
== END | disposition home or self-care (01) ==
LOC: OPUS 08:59
PROVIDERS: PCP Family Medicine
DX: R11.2 Nausea with vomiting, unspecified (principal); R10.9 Unspecified abdominal pain
CPT/HCPCS: 76705

== ENCOUNTER → 2025-04-11 | Outpatient (CLI) | payer BC, SELFPAY ==
--- NOTE | 2025-04-11 09:01 | NM_ITS ---
PROCEDURE: GASTRIC EMPTYING STUDY - 4 HR 04/11/2025 REASON FOR EXAM: N/V/ABD PAIN TECHNIQUE: The patient ingested a standard meal of oatmeal and radiopharmaceutical and water. Newly-There was no vomiting postprandially. Anterior and posterior planar images of the upper abdomen were obtained for 1 minute immediately following the meal at 1h, 2h and 4h if more than 10% of the activity persisted within the stomach. Regions of interest were drawn, and a geometric mean was used to calculate a [id number]. RADIOPHARMACEUTICAL: Sulfur colloid DOSE 1.1mCi FINDINGS: Percent activity remaining in stomach: 1 hour 63 % (normal 37-90%) 2 hours: 47 % (normal 30-60%) 4 hours: 16 % (normal 0-10%) NM/Gastric Emptying Study - 4 HR IMPRESSION: Delayed gastric emptying. Reading Location: [id number]
== END | disposition home or self-care (01) ==
LOC: NM 08:52
PROVIDERS: PCP Family Medicine
DX: R10.9 Unspecified abdominal pain (principal); K31.84 Gastroparesis
CPT/HCPCS: 78264; A9541

== ENCOUNTER → 2025-04-15 | Outpatient (CLI) | payer BC, SELFPAY ==
--- NOTE | 2025-04-15 17:45 | CT_ITS ---
PROCEDURE: ABDOMEN/PELVIS WITH CONTRAST 04/15/2025 REASON FOR EXAM: HEPATOMEGALY ON US, 24.7 CM TECHNIQUE: ABDOMEN/PELVIS WITH CONTRAST Coronal and Sagittal reconstruction series were provided. CONTRAST: Isovue 300 VOLUME: 98 mL One or more dose reduction techniques were used (e.g., Automated exposure control, adjustment of the mA and/or kV according to patient size, use of iterative reconstruction technique. RADIATION DOSE SUMMARY: CTDlvol: 28 mGy DLP: 1136 mGycm COMPARISON: Ultrasound 03/21/2025 FINDINGS: Series 2, image 1, partially imaged left lower lobe noncalcified nodule measuring at least [address] recommended. Heart size is within normal limits. Hepatomegaly and diffuse hepatic steatosis. Normal gallbladder, pancreas, spleen, adrenal glands and kidneys. No hydronephrosis or ureteral stone. Normal bladder. Normal uterus and ovaries. No retroperitoneal or pelvic adenopathy. No free air. Nondistended bowel. Normal appendix. No acute large bowel findings. No acute abdominal wall findings. CT/Abdomen/Pelvis WITH Contrast IMPRESSION: Medical liver disease. Correlate for possible hepatitis. Left lower lobe lung nodule, recommend chest CT Reading Location: [place] [address]
[2025-04-15 18:23] LABS: CREATININE FINGERSTICK < 1.0 mg/dL (0.55-1.02); EGFR FINGERSTICK > 60.0000 mL/min (>60)
== END | disposition home or self-care (01) ==
LOC: CT 17:44
PROVIDERS: PCP Family Medicine
DX: R16.0 Hepatomegaly, not elsewhere classified (principal)
CPT/HCPCS: 74177; Q9967

== ENCOUNTER → 2025-04-25 | Outpatient (CLI) | payer BC, SELFPAY ==
[2025-04-25 12:02] LABS: Hematocrit 37.6 % (37-47); Hemoglobin 12.4 g/dL (12.0-15.0); Immature Granulocytes Count 0.060 X10^3/uL (0.0-0.0); Mean Corp Hgb Conc 33.0 g/dL (32-36); Mean Corpuscular Volume 85.5 fL (81-99); Mean Platelet Vol. 9.7 fl (6.2-12.0); NRBC Flagged by Analyzer 0 % (0-5); Platelet Count 407 K/mm3 (150-450); RBC Distribution Width CV 12.5 % (11.6-14.6); RBC Distribution Width SD 39.0 fl (35.1-43.9); Red Blood Count 4.40 M/mm3 (4.2-5.4); White Blood Count 9.1 K/mm3 (4.4-11.0)
[2025-04-25 12:08] LABS: Prothrombin Time (Protime)PT. 13.2 SECONDS (11.7-14.9)
[2025-04-25 13:35] LABS: CORTISOL AM 11.40 ug/dL (6.02-18.40); Ferritin 93 ng/mL (22-378); Hepatitis B Surface Antigen Nonreactive (Nonreactive); Hepatitis C Antibody Nonreactive (Nonreactive)
[2025-04-25 13:40] LABS: AST(SGOT) 26 U/L (<=31); Alanine Aminotransfer ALT/SGPT 23 U/L (<=34); Albumin, Serum 3.6 g/dL (3.5-5.0); Alkaline Phosphatase 140 U/L (35-104); Anion Gap 16 (5-15); BUN 10 mg/dL (4-19); BUN/Creat Ratio 18.3 RATIO (10-20); Bilirubin, Direct 0.14 mg/dL (0.00-0.30); CRP 3.62 mg/L (0.0-3.0); Calcium,Total 9.2 mg/dL (7.6-11.0); Carbon Dioxide 17.1 mmol/L (21.0-32.0); Chloride 106 mmol/L (98-108); Globulin 3.8 g/dL (2.2-4.2); Glucose 287 mg/dL (70-99); Iron 61 ug/dL (50-170); Lipase 26 U/L (13-75); Potassium 4.3 mmol/L (3.3-5.1)
[2025-04-26 05:07] LABS: GGTP 36 IU/L (0-60)
== END | disposition home or self-care (01) ==
PROVIDERS: PCP Family Medicine
DX: R19.7 Diarrhea, unspecified (principal); E10.69 Type 1 diabetes mellitus with other specified complication; K31.84 Gastroparesis; R10.9 Unspecified abdominal pain; R16.0 Hepatomegaly, not elsewhere classified
CPT/HCPCS: 36415; 78226; 80048; 80076; 82390; 82533; 82728; 82977; 83540; 83690; 85025; 85610; 86140; 86705; 86709; 86803; 87340; A9537

== ENCOUNTER → 2025-05-09 | Outpatient (CLI) | payer BC, SELFPAY ==
[2025-05-11 16:09] LABS: ANTINUCLEAR ANTIBODIES DIRECT Negative (Negative); Anti-Smooth Muscle ABS 5 Units (0-19)
== END | disposition home or self-care (01) ==
LOC: LAB 15:19
PROVIDERS: PCP Family Medicine
DX: R16.0 Hepatomegaly, not elsewhere classified (principal); R10.84 Generalized abdominal pain; K31.84 Gastroparesis
CPT/HCPCS: 36415; 83516; 86038; 86225

== ENCOUNTER → 2025-05-17 | Outpatient (CLI) | payer BC, SELFPAY ==
--- NOTE | 2025-05-17 17:20 | CT_ITS ---
PROCEDURE: CHEST WITH CONTRAST 05/17/2025 REASON FOR EXAM: NEW LUNG NODULE ON ABD/PELVIS CT TECHNIQUE: CHEST WITH CONTRAST Coronal and Sagittal reconstruction series were provided. CONTRAST: Isovue 370 VOLUME: 99 mL One or more dose reduction techniques were used (e.g., Automated exposure control, adjustment of the mA and/or kV according to patient size, use of iterative reconstruction technique). RADIATION DOSE SUMMARY: CTDlvol: 23 mGy DLP: 431 mGycm COMPARISON: Abdominopelvic CT 04/15/2025, chest x-ray 10/2024 FINDINGS: Unremarkable base of neck and axilla. Thoracic spine scoliosis. Normal esophagus. Normal heart size. No acute vascular pathology. Prevertebral soft tissue, likely thymic remnant. Mild bilateral hilar adenopathy usually reactive. No acute chest wall findings. Suspected hepatomegaly and diffuse hepatic steatosis consistent with medical liver disease. Refer to recent abdominal CT report. No acute upper abdominal pathology noted. Central airways are patent. Under aeration at the lung bases. No effusion or pneumothorax. On the left, series 4 images 52/54, there is a rounded semi-solid density measuring approximately 9 x 11 mm. Could represent a semi-solid mass, as well as a rounded focus of airspace disease. On the previous abdominal CT, the lesion was incompletely imaged. However, it was larger, measuring up to 16 mm, and clearly more dense on the prior examination which suggested it may be resolving. On the right, no suspicious lung nodules. CT/Chest WITH Contrast IMPRESSION: Left lower lobe semi-solid rounded density, decreased in size and density since recent abdominal CT, suggesting it is a resolving infectious/inflammatory process, rather than tumor. Consider three-month follo w up chest CT. Reading Location: [place] [address]
== END | disposition home or self-care (01) ==
PROVIDERS: PCP Family Medicine
DX: R16.0 Hepatomegaly, not elsewhere classified (principal); R91.1 Solitary pulmonary nodule
CPT/HCPCS: 71260; Q9967

== ENCOUNTER → 2025-05-23 | Outpatient (CLI) | payer BC, SELFPAY ==
--- NOTE | 2025-05-23 07:10 | MRI_ITS ---
PROCEDURE: MRCP ABDOMEN WITHOUT CONTRAST, 05/23/2025 REASON FOR EXAM: CONCERN FOR CHOLECYSTITIS FROM HIDA, HEPATOMEGALY TECHNIQUE: Multiplanar multisequence MRI abdomen was performed without IV contrast. MRCP was performed including generation of MIP reconstructions and 3D reformats. COMPARISON: 04/25/2025. FINDINGS: Note that the exam was optimized for evaluation of the gallbladder and biliary tree rather than the remaining abdominal viscera. Note also that sensitivity is limited in the absence of IV contrast and routine noncontrast MRI abdomen sequences such as diffusion. Note some abdominal viscera are excluded from the field of view as the exam was optimized for evaluation of the biliary tree and pancreatic ducts. Liver: Redemonstrated hepatomegaly. Steatosis better depicted previously. Gallbladder: Distended without wall thickening or convincing inflammation. Suspect punctate layering gallstones. T1 bright layering possible sludge. Biliary tree: Unremarkable. No biliary dilatation or definite filling defect to suggest choledocholithiasis. Pancreas unremarkable. No ductal dilatation. Other: Splenomegaly, 13.3 cm coronal.. Punctate T2 bright presumed RIGHT renal cyst technically incompletely characterized in the absence of IV contrast. MRI/MRCP Abdomen without Contrast IMPRESSION: 1. Distended gallbladder with suspected tiny layering gallstones and possible s ludge. No definite inflammation to suggest cholecystitis, noting that HIDA is much more sensitive. No biliary dilatation or definite filling defect to suggest choledocholithiasis. 2. Redemonstrated hepatosplenomegaly. Steatosis better depicted previously. C orrelate for clinical and laboratory evidence of chronic liver disease. 3. Additional description as above. Reading Location: [id number]
--- OUTSIDE RECORDS SUMMARY | 2025-05-23 07:16 | XMS RPT_ITS | CCD ---
Author Organization [facility] Care Team Providers Care Restaurant And Bar Manager Name Role Phone DEVANGKRISTA Unavailable Unavailable NO PRIMARY CARE, Unavailable Unavailable NO PRIMARY CARE, Unavailable Unavailable Petros Spicer Primary Care Provider Petros Spicer MD Primary Care Provider Eulalio MASTER COOK, MASTER COOK-C Rimma Primary Care Provider Dr. Gisel Pruitt Emergency Provider [phone] Dr. Yonatan Medina Admit Provider Unavailable Dr. Yonatan Medina Attending Provider Unavailable Dr. Yonatan Medina Other Provider Unavailable Dr. Chad Anthony Emergency Provider Dr. Aaron Chiu Admit Provider Dr. Aaron Chiu Attending Provider [phone] Dr. Aaron Chiu Other Provider Eulalio TAX ACCOUNTING MANAGER.Rimma FLOWERS Primary Care Provide r RIMMA TSAI Primary Care Unavailable ALEAH BARCENAS Attending Unavailable QUIN ORNELAS Consulting Unavailable KEM ISAAC Attending Unavailable TATA VILLEGAS Admitting Unavailable RIMMA TSAI Primary Care Unavailable TANNER GRANADO Consulting UnavailRIMMA Rivera Primary Care Unavailable ED DEAL Attending UnavailED Strong Admitting UnavailBAUTISTA RiveraA Michael Primary Care Unavailable JERRY DEL VALLE Attending Unavailable KEMAR RIZO Attending Unavailable BAUTISTA TSAIA Michael Primary Care Unavailable TANNER GRANADO Consulting Unavailabl e ALFIE, JOSE A Attending Unavailable TSAI, RIMMA L Primary Care Unavailable ED DEAL Admitting Unavailabl e SABINO BENOIT Attending Unavailabl e KRISTA ALBERTS Referring Unavailable TSAI, RIMMA L Primary Care Unavailable TSAI, RIMMA L Primary Care Unavailable AJIT RODGERS, SKYLAR Lyons Primary Care Physician [phone] AJIT RODGERS, SKYLAR Lyons Primary Care Unavailable LAZARO DELGADO Attending Unavailable AJIT RODGERS, SKYLAR Lyons Primary Care Unavailable LAZARO DELGADO Attending Unavailable Ajit RODGERS, Skylar A Primary Care Provider [phone] Skylar Fong Primary Care Provider [phone] BRENDA GILLESPIE Attending Unavailable AJIT, SKYLAR A Referring Unavailable AJIT, SKYLAR A Primary Care Unavailable BRENDA GILLESPIE Referring Unavailable AJIT, SKYLAR A Primary Care Unavailable SKYLAR FONG A Primary Care Unavailable Ajit RODGERS, Dr. Hernandez Primary Care Provider Dr. Skylar Fong MD Attending Provider [phone] Skylar Fong MD Referring Provider [phone] SKYLAR FONG Primary Care Unavailable FLORY MCGARRY Attending Unavailable SKYLAR FONG Primary Care Unavailable Ashutosh GILBERT-Dorothy Dill Attending Provider Dr. Skylar Fong MD Primary Care Provider [phone] Skylar Fong MD Attending Provider [phone] Skylar Fong MD Referring Provider [phone] Ashutosh GILBERT-CDorothy Referring Provider TRUONG CASTILLO Attending Unavailable FONG, SKYLAR A Primary Care Unavailable FONG, SKYLAR A Primary Care Unavailable GLENYS GARCIA Attending Unavailable Dr. Skylar Fong MD Primary Care Provider [phone] Skylar Fong MD Referring Provider Tea RODGERS, Dr. Chappell Attending Provider Justyn RODGERS, Dr. Foster Attending Provider [phone] Dorothy Boykin Referring Unavailable Dorothy Boykin Attending Unavailable Skylar Fong Primary Care Unavailable Skylar Fong Primary Care Unavailable Skylar Fong Attending Unavailable Kristin Alejandra Attending Unavailable Fong, Skylar Primary Care Unavailable Boykin, Dorothy Referring Unavailable Boykin, Dorothy Referring Unavailable Boykin, Dorothy Attending Unavailable Fong, Skylar Primary Care Unavailable Fong, Skylar Primary Care Unavailable Boykin, Dorothy Referring Unavailable Boykin, Dorothy Attending Unavailable Boykin, Dorothy Attending Unavailable Fong, Skylar Primary Care Unavailable Boykin, Dorothy Referring Unavailable Fong, Skylar Primary Care Unavailable Fong, Skylar Referring Unavailable Fong, Skylar Attending Unavailable Fong, Skylar Primary Care Unavailable Agarwal, Everardo Attending Unavailable Fong, Skylar Primary Care Unavailable Fong, Skylar Attending Unavailable Fong, Skylar Primary Care Unavailable Fong, Skylar Referring Unavailable Fong, Skylar Attending Unavailable Fong, Skylar Primary Care Unavailable Fong, Skylar Attending Unavailable Pepe Gillespie Attending Unavailable Fong, Skylar Referring Unavailable Boykin, Dorothy Attending Unavailable Fong, Skylar Primary Care Unavailable Boykin, Dorothy Attending Unavailable Fong, Skylar Primary Care Unavailable Fong, Skylar Referring Unavailable Fong, Skylar Primary Care Unavailable Fong, Skylar Referring Unavailable Fong, Skylar Attending Unavailable Boykin, Dorothy Attending Unavailable Boykin, Dorothy Referring Unavailable Fong, Skylar Primary Care Unavailable Boykin, Dorothy Attending Unavailable Fong, Skylar Primary Care Unavailable Boykin, Dorothy Referring Unavailable Fong, Skylar Referring Unavailable Fong, Skylar Attending Unavailable Fong, Skylar Primary Care Unavailable Fong, Skylar Referring Unavailable Fong, Skylar Attending Unavailable Fong, Skylar Primary Care Unavailable Boykin, Dorothy Attending Unavailable Fong, Skylar Primary Care Unavailable Boykin, Dorothy Referring Unavailable Fong, Skylar Primary Care Unavailable Boykin, Dorothy Referring Unavailable Boykin, Dorothy Attending Unavailable Allergies Allergy Classification Reported Allergen(s) Allergy Type Date of Onset Reaction(s) Facility (5 sources) Penicillins; Translations: [PENICILLINS] Drug Allergy 05-21-2024 Rash, Vomiting [facility] Medications Current Medications Medication Drug Class(es) Dates Sig (Normalized) Sig (Original) amylase 39321 unt / lipase 10661 unt / protease 74786 unt delayed release oral capsule (4 sources) Start: 03-22-2024 take 1 capsule by mouth three times daily at mealtime nxieso-iasgdflv-dm ylase (ZENPEP) 20,000-63,000- 84,000 unit delayed release capsule Take 1 capsule by mouth three times a day with meals. 03/22/2024 Active Blood Glucose Monitoring Suppl (Notegraphy ULTRA 2) w/Device KIT (2 sources) Blood Glucose Monitoring Suppl (ONE TOUCH ULTRA 2) w/Device KIT 1 kit by Does not apply route daily as needed 0 Active brompheniramine maleate 0.4 mg/ml / dextromethorphan hydrobromide 2 mg/ml / pseudoephedrine hydrochloride 6 mg/ml oral solution (1 source) alpha-Adrenergic Agonist, Uncompetitive S-zbqkzm-Z-aspartate Receptor Antagonist, Sigma-1 Agonist Start: 10-25-2024 take 5 mL by mouth four times daily as needed Brompheniramine-Ps eudoeph-DM (BROMFED DM) 2-30-10 mg/5 mL syrup Indications: Viral URI with cough Take 5 mL by mouth four times a day as needed. 118 mL 10/25/2024 Active Budesonide / formoterol (3 sources) Corticosteroid, beta2-Adrenergic Agonist Start: 08-09-2024 take 2 puff(s) by inhalation twice daily budesonide-formote rol (SYMBICORT) 80-4.5 mcg/actuation inhaler Inhale 2 Puffs as instructed two times a day. 1 Each 5 08/09/2024 Active cefdinir 300 mg oral capsule (1 source) Cephalosporin Antibacterial Start: 02-08-2022 take 300 mg by mouth twice daily Cefdinir Active 300 MG PO TWICE A DAY February 08, 2022 10:47am colestipol hydrochloride 1000 mg oral tablet (3 sources) Bile Acid Sequestrant Start: 05-09-2025 Colestipol 1 gram tablet Active 1 g PO 3 times per day with meals 42 14 0 May 09, 2025 12:00am May 22, 2025 12:00am dicyclomine hydrochloride 10 mg oral capsule (7 sources) Anticholinergic Start: 03-07-2025 take 1 capsule by mouth three times daily as needed for pain Dicyclomine 10 mg capsule Active 10 mg PO THREE TIMES A DAY as needed for abdominal pain 60 0 March 07, 2025 12:00am diphenhydramine/alum & mag hydroxide/lidocaine (Magic Mouthwash) oral solution (2 sources) Start: 03-02-2025 take 5 mL by mouth every six hours as needed for pain diphenhydramine/al um & mag hydroxide/lidocain e (Magic Mouthwash) oral solution Swish and spit 5 mL every 6 hours as needed for irritation or dental pain. 100 mL 03/02/2025 Active erythromycin 0.005 mg/mg ophthalmic ointment (1 source) Macrolide, Macrolide Antimicrobial Start: 10-25-2024 End: 11-01-2024 erythromycin (ROMYCIN) 5 mg/gram (0.5 %) ophthalmic ointment Indications: Viral conjunctivitis Use 1 application in the right eye four times daily for 7 days. 3.5 g 10/25/2024 11/01/2024 Active insulin isophane, human 100 unt/ml injectable suspension (20 sources) Start: 06-03-2022 inject 14 [IU] by subcutaneous injection once daily at breakfast, then inject 34 [IU] by subcutaneous injection once daily at bedtime insulin NPH injection (HumuLIN N,NovoLIN N) Inject 14 Units subcutaneously daily with breakfast AND 34 Units daily at bedtime. 20 mL 2 06/03/2022 Active Start: 04-26-2022 insulin NPH in jection (HumuLIN N,NovoLIN N) Inject 30 units at night and 10 units in am subcutaneous 100 mL 2 04/26/2022 Active Start: 03-09-2022 Insulin Nph Is oph U-100 Human (Novolin N Nph U-100 Insulin) 100 unit/mL Suspension Active 30 U SC AT BEDTIME March 09, 2022 12:00am Check with primary doctor Start: 03-09-2022 Insulin Nph Is oph U-100 Human (Novolin N Nph U-100 Insulin) 100 unit/mL Suspension Active 10 U SC WITH BREAKFAST March 09, 2022 12:00am Check with primary doctor Comment on above: Inject 30 units at n ight and 10 units in am subcutaneous insulin lispro 100 unt/ml injectable solution (20 sources) Insulin Analog Start: 03-22-2024 HumaLOG 100 units/mL injectable solution VIAL Dose : 1 unit(s) =, Subcutaneous, 0 Refill(s) Start Date: 03/22/24 Status: Ordered Start: 02-08-2022 End: 03-09-2022 Insulin Lispro (Humalog Kwik pen Insulin) 100 unit/mL Insulin Pen Discontinued 10 U SC THREE TIMES DAILY BEFORE MEALS 9 30 0 February 08, 2022 12:00am March 09, 2022 1:13pm Start: 02-08-2022 End: 03-09-2022 Insulin Lispro (Humalog Kwik pen Insulin) 100 unit/mL Insulin Pen Discontinued 0 U SC BEFORE MEALS AND AT BEDTIME February 08, 2022 12:00am March 09, 2022 1:13pm Please contact the information source for Protocol details. Start: 02-08-2022 End: 03-09-2022 Insulin Lispro (Humalog Kwik pen Insulin) 100 unit/mL Insulin Pen Discontinued 0 UNIT SC BEFORE MEALS AND AT BEDTIME 08 18February 08, 2022 12:00am March 09, 2022 1:13pm Start: 01-07-2020 End: 02-08-2022 Insulin Lispro (Humalog U-10 0 Insulin) 100 unit/mL solution Discontinued 1 sliding scale dose SC Use as Directed 08 18 12January 07, 2020 4:14pm February 08, 2022 10:32am Type 1 diabetes mellitus without complications diabetes type 1 B 1-5 U > 150 BS L 1-3 U > 150 BS D 1-3 U > 150 BS snack 5-10 U > 150 BS Start: 01-07-2020 End: 02-08-2022 Insulin Lispro (Humalog U-10 0 Insulin) 100 unit/mL solution Discontinued 1 sliding scale dose SC Use as Directed 08 18January 07, 2020 4:14pm February 08, 2022 10:32am B 1-5 U > 150 BS L 1-3 U > 150 BS D 1-3 U > 150 BS snack 5-10 U > 150 BS Start: 12-17-2019 End: 01-07-2020 Insulin Lispro (Humalog U-10 0 Insulin) 100 unit/mL solution Discontinued 1 sliding scale dose SC Use as Directed December 17, 2019 1:00am January 07, 2020 4:20pm Type 1 diabetes mellitus without complications diabetes type 1 breakfast 1-5 units over 150 BS lunch 1-3 U over 150 BS dinner 1-3 U over 150 BS snack 5-10 U over 150 BS Start: 12-17-2019 End: 01-07-2020 Insulin Lispro (Humalog U-10 0 Insulin) 100 unit/mL solution Discontinued 1 sliding scale dose SC Use as Directed December 17, 2019 1:00am January 07, 2020 4:20pm breakfast 1-5 units over 150 BS lunch 1-3 U over 150 BS dinner 1-3 U over 150 BS snack 5-10 U over 150 BS Start: 07-28-2019 End: 12-17-2019 Insulin Lispro 100 UNIT/ML s olution Discontinued 0 U SQ 3 TIMES DAILY WITH MEALS July 28, 2019 12:00am December 17, 2019 4:52pm diabetes SLIDING SCALE DEPENDING OF CARBS EATEN Start: 07-28-2019 End: 12-17-2019 Insulin Lispro Discontinued 0 UNITS SQ 3 TIMES DAILY WITH MEALS July 28, 2019 12:00am December 17, 2019 4:52pm SLIDING SCALE DEPENDING OF CARBS EATEN Start: 03-17-2019 insulin lispro (HUMALOG) 100 UNIT/ML injection vial Indications: Type 1 diabetes mellitus with complication, uncontrolled (HCC) Max 80 units daily as directed by ICR and CF 3 vial 0 03/17/2019 Active insulin, regular, human 500 unt/ml injectable solution (20 sources) Insulin Start: 03-22-2024 Humulin R (CON CENTRATED) 500 units/mL 20 mL VIAL* unit(s), Subcutaneous-INT Start Date: 03/22/24 Status: Ordered Start: 06-03-2022 End: 08-09-2024 inject 10 [IU] by subcutaneous injection at mealtime insulin regular human (NOVOLIN R,HUMULIN R) 100 unit/mL injection Inject 10 Units subcutaneously w MEALS. 06/03/2022 08/09/2024 Discontinued Start: 03-09-2022 insulin regula r human, CONCENTRATED 500 UNIT/ML, 500 unit/mL soln Inject subcutaneously. Per sliding scale 03/09/2022 Active Start: 03-09-2022 Insulin Regula r Human (Novolin R Regular U100 Insulin) 100 unit/mL Solution Active 0 U SC BEFORE MEALS AND AT BEDTIME March 09, 2022 12:00am Check with primary doctor Please contact the information source for Protocol details. Start: 03-09-2022 Insulin Regula r Human (Novolin R Regular U100 Insulin) 100 unit/mL Solution Active 10 U SC THREE TIMES A DAY March 09, 2022 12:00am Check with primary doctor Comment on above: Inject 10 Units subc utaneously three times daily before meals. lidocaine hydrochloride 20 mg/ml mucous membrane topical solution (3 sources) Antiarrhythmic, Amide Local Anesthetic Start : 09-02 take 15 mL by mouth every eight hours as needed lidocaine viscous (XYLOCAINE) 2 % solution Take 15 mL by mouth three times daily as needed for pain. 100 mL 09/02/2022 Active 1 ml medroxyPROGESTERone acetate 150 mg/ml injection (3 sources) Progestin medroxyPROGESTER one (DEPO-PROVERA) 150 mg/mL injection Inject 150 mg intramuscularly every 12 weeks. Active olopatadine 2 mg/ml ophthalmic solution (1 source) Histamine-1 Receptor Inhibitor Start : 10-25 take 1 drop(s) into the eye(s) once daily Olopatadine (PATADAY ONCE DAILY RELIEF) 0.2 % drop Indications: Viral conjunctivitis Use 1 Drop in both eyes once daily. 5 mL 10/25/2024 Active omeprazole 40 mg delayed release oral capsule (2 sources) Proton Pump Inhibitor Start : 05-16 take 1 capsule by mouth once daily Omeprazole 40 mg capsule,delayed release(DR/EC) Active 40 mg PO daily 30 May 16, 2025 12:00am swallow whole; do not crush, chew, dissolve, cut, break Start: 12-27-2022 End: 08-09-2024 take 1 capsule by mouth once daily omeprazole (PRILOSEC) 20 mg capsule Take 1 capsule by mouth once daily for 14 days. 14 capsule 12/27/2022 08/09/2024 Discontinued predniSONE 10 mg oral tablet (1 source) Start: 10-25-2024 End: 11-03-2024 take 3 tablets by mouth once daily, then take 2 tablets by mouth once daily, then take 1 tablet by mouth once daily predniSONE (DELTASONE) 10 mg tablet Indications: Viral URI with cough Take 3 tablets by mouth once daily for 3 days, THEN 2 tablets once daily for 3 days, THEN 1 tablet once daily for 3 days. 18 tablet 10/25/2024 11/03/2024 Active ramipril 1.25 mg oral capsule (4 sources) Angiotensin Converting Enzyme Inhibitor Start: 03-22-2024 take 1 capsule by mouth once daily ramipril (ALTACE) 1.25 mg capsule Take 1.25 mg by mouth once daily. 03/22/2024 Active rosuvastatin calcium 10 mg oral tablet (3 sources) HMG-CoA Reductase Inhibitor Start: 07-30-2019 take 1 tablet by mouth once daily at bedtime rosuvastatin (CRESTOR) 10 mg tablet Take 10 mg by mouth daily at bedtime. 07/30/2019 Active sucralfate 1000 mg oral tablet (1 source) Aluminum Complex Start: 05-16-2025 take 1 tablet by mouth once at bedtime Sucralfate 1 gram tablet Active 1 g PO before meals and at bedtime 56 0 May 16, 2025 12:00am Take an hour before meals and at bedtime Completed/Discontinued Medications Medication Drug Class(es) Dates Sig (Normalized) Sig (Original) amoxicillin 875 mg / clavulanate 125 mg oral tablet (20 sources) Penicillin-class Antibacterial Start: 03-02-2025 End: 03-02-2025 take 1 tablet by mouth once 1 tablet (875 mg), Oral, Once, On Fri03/02/25 at 2240, For 1 dose, Suspected Indication (Select all that apply): Head and Neck Infection Start: 03-02-2025 End: 03-12-2025 take 1 tablet by mouth every twelve hours amoxicillin-clavulanate (Augmentin) 875-125 MG tablet Take 1 tablet by mouth every 12 hours for 10 days. 20 tablet 03/02/2025 03/12/2025 Active Start: 12-17-2019 End: 01-07-2020 Amoxicillin-Pot Clavulanate 500-125 mg tablet Discontinued 1 {tbl} PO TWICE A DAY 20 December 17, 2019 1:00am January 07, 2020 4:09pm Start: 12-17-2019 End: 01-07-2020 take 1 tablet by mouth twice daily Amoxicillin-Pot Clavulanate Discontinued 1 TABLET PO TWICE A DAY December 17, 2019 1:00am January 07, 2020 4:09pm cefadroxil 1000 mg oral tablet (18 sources) Cephalosporin Antibacterial Start: 07-30-2019 End: 08-17-2019 take 1 tablet by mouth twice daily Cefadroxil 1 GM tablet Discontinued 1 g PO TWICE A DAY 7 0 July 30, 2019 12:00am August 17, 2019 3:59pm cefTRIAXone 1000 mg injection (6 sources) Cephalosporin Antibacterial Start: 12-08-2020 End: 12-08-2020 inject 1 g by intramuscular injection once ceftriaxone 1 gram solution for injection Discontinued 1 GM IM ONCE 1 December 08, 2020 5:12pm December 08, 2020 6:45pm Start: 08-17-2019 End: 08-17-2019 inject 1 g by intramuscular injection once ceftriaxone 1 gram solution for injection Discontinued 1 GM IM ONCE 1 August 17, 2019 3:30pm August 17, 2019 3:30pm cephalexin 500 mg oral capsule (18 sources) Cephalosporin Antibacterial Start: 11-06-2019 End: 12-17-2019 take 1 capsule by mouth every eight hours Cephalexin 500 MG capsule Discontinued 500 mg PO EVERY 8 HOURS 15 November 06, 2019 1:00am December 17, 2019 4:46pm ciprofloxacin 500 mg oral tablet (18 sources) Quinolone Antimicrobial Start: 01-07-2020 End: 02-08-2020 take 1 tablet by mouth twice daily Ciprofloxacin Hcl 500 mg tablet Discontinued 500 mg PO TWICE A DAY January 07, 2020 12:00am February 08, 2020 3:29pm clorazepate dipotassium 3.75 mg oral tablet (9 sources) Benzodiazepine Start: 07-30-2024 End: 03-07-2025 take 1 tablet by mouth three times daily Clorazepate Dipotassium 3.75 mg tablet Discontinued 3.75 mg PO THREE TIMES A DAY 30 July 30, 2024 12:00am March 07, 2025 8:11am Anxious reaction Vocal cord dysfunction Generalized anxiety disorder Other diseases of vocal cords 30 actuat fluticasone furoate 0.1 mg/actuat / umeclidinium 0.0625 mg/actuat / vilanterol 0.025 mg/actuat dry powder inhaler (1 source) Anticholinergic, Corticosteroid, beta2-Adrenergic Agonist End: 08-09-2024 take 1 puff(s) by inhalation once daily fluticasone-umecli din-vilanter (TRELEGY ELLIPTA) 100-62.5-25 mcg inhalation powder Inhale 1 Puff as instructed once daily. 08/09/2024 Discontinued (Course of therapy completed) 3 ml insulin glargine 100 unt/ml pen injector (20 sources) Insulin Analog Start: 02-06-2022 End: 02-08-2022 Insulin Glargine (Basaglar Kwikpen U-100 Insulin) 100 unit/mL (3 mL) insulin pen Discontinued 45 U SC DAILY February 06, 2022 10:13am February 08, 2022 10:32am diabetes 12 U q AM 50 U q PM Start: 02-14-2020 End: 02-06-2022 Insulin Glargine (Basaglar Kwikpen U-100 Insulin) 100 unit/mL (3 mL) insulin pen Discontinued 62 U SC DAILY 55.8 90 3 February 14, 2020 12:00am February 06, 2022 10:13am 12 U q AM 50 U q PM Start: 02-08-2020 End: 02-14-2020 Insulin Glargine U-300 Conc (Toujeo Max U-300 Solostar) 300 unit/mL (3 mL) insulin pen Discontinued 62 U SC DAILY 18.603 90 3 February 14, 2020 4:03pm February 14, 2020 4:32pm 12 U AM 50 U PM Start: 12-17-2019 End: 02-08-2020 Insulin Glargine U-300 Conc (Toujeo Max U-300 Solostar) 300 unit/mL (3 mL) insulin pen Discontinued 12 U SC DAILY February 08, 2020 3:29pm February 08, 2020 3:37pm 12 U AM 50 U PM Start: 12-17-2019 End: 02-14-2020 Insulin Glargine U-300 Conc (Toujeo Max U-300 Solostar) 300 unit/mL (3 mL) insulin pen Discontinued 60 U SC AT BEDTIME December 17, 2019 1:00am February 14, 2020 4:32pm Start: 11-06-2019 End: 12-17-2019 inject 30 [IU] by subcutaneous injection at breakfast Insulin Glargine U-300 Conc 300 UNIT/ML insulin pen Discontinued 30 U SQ WITH BREAKFAST 0 0 November 06, 2019 11:37am December 17, 2019 4:48pm Start: 07-28-2019 End: 11-06-2019 inject 12 [IU] by subcutaneous injection at breakfast Insulin Glargine U-300 Conc 300 UNIT/ML insulin pen Discontinued 12 U SQ WITH BREAKFAST July 28, 2019 12:00am November 06, 2019 11:37am Start: 07-28-2019 End: 12-17-2019 Insulin Glargine U-300 Conc 300 UNIT/ML insulin pen Discontinued 60 U SQ AT BEDTIME July 28, 2019 12:00am December 17, 2019 4:48pm diabetes Start: 03-28-2019 YADIRA Cid 300 UNIT/ML injection pen Indications: Type 1 diabetes mellitus with complication, uncontrolled (HCC) Inject 50 Units into the skin nightly 5 pen 8 03/28/2019 Active Insulin Glargine-Yfgn (18 sources) Start: 02-08-2022 End: 03-09-2022 Insulin Glargine-Yfgn Discon tinued 30 UNIT SC TWICE A DAY February 08, 2022 10:44am March 09, 2022 1:13pm Start: 02-08-2022 Insulin Glargi ne-Yfgn Active 30 UNIT SC TWICE A DAY February 08, 2022 10:44am Start: 02-08-2022 End: 03-09-2022 Insulin Glargine-Yfgn 100 un it/mL (3 mL) Insulin Pen Discontinued 30 U SC TWICE A DAY February 08, 2022 12:00am March 09, 2022 1:13pm Start: 02-08-2022 End: 03-09-2022 Insulin Glargine-Yfgn 100 un it/mL (3 mL) Insulin Pen Discontinued 30 U SC TWICE A DAY February 08, 2022 12:00am March 09, 2022 1:13pm Start: 02-08-2022 End: 03-09-2022 Insulin Glargine-Yfgn Discon tinued 30 UNIT SC TWICE A DAY February 07, 2022 11:00pm March 09, 2022 12:13pm Start: 02-08-2022 End: 03-09-2022 Insulin Glargine-Yfgn Discon tinued 30 UNIT SC TWICE A DAY February 08, 2022 12:00am March 09, 2022 1:13pm iopamidol (Isovue-370) 76 % injection 75 mL (2 sources) Start: 03-02-2025 End: 03-02-2025 take 75 mL intravenously once as needed 75 mL, IntraVENous, IMG once PRN, contrast, Starting on Fri03/02/25 at 2137, For 1 dose 1 ml ketorolac tromethamine 30 mg/ml cartridge (2 sources) Nonsteroidal Anti-inflammatory Drug, Cyclooxygenase Inhibitor Start: 03-02-2025 End: 03-02-2025 15 mg, IntraVENous, Once, On Fri03/02/25 at 1840, For 1 dose levothyroxine sodium 0.05 mg oral tablet (20 sources) l-Thyroxine Start: 02-09-2018 End: 03-07-2025 take 1 tablet by mouth once daily Levothyroxine 50 MCG tablet Discontinued 50 ug PO DAILY July 28, 2019 12:00am February 08, 2020 3:41pm thyroid End: 08-09-2024 take 1 tablet by mouth once daily before breakfast levothyroxine (SYNTHROID) 300 mcg tablet Take 300 mcg by mouth daily before breakfast. 08/09/2024 Discontinued (Discontinued by another Health Care Provider) Comment on above: Take 300 mcg by mout h daily before breakfast. lisinopril 30 mg oral tablet (20 sources) Angiotensin Converting Enzyme Inhibitor Start: End: take 1 tablet by mouth once daily lisinopril (ZESTRIL,PRINIVIL) 30 mg tablet Take 1 tablet by mouth once daily. 30 tablet 04/26/2022 08/09/2024 Discontinued (Discontinued by another Health Care Provider) Start: 07-28-2019 End: 03-07-2025 Lisinopril 20 mg tablet Disc ontinued 30 mg PO DAILY December 17, 2019 4:52pm February 08, 2020 3:41pm blood pressure Start: 07-28-2019 End: 02-08-2020 take 30 mg by mouth once daily Lisinopril Discontinued 30 MG PO DAILY December 17, 2019 4:52pm February 08, 2020 3:41pm Comment on above: Take 1 tablet by bassem th once daily. metroNIDAZOLE 250 mg oral tablet (18 sources) Nitroimidazole Antimicrobial Start: 12-08-19 End: 12-19-19 take 1 tablet by mouth three times daily Metronidazole 250 mg tablet Discontinued 250 mg PO THREE TIMES A DAY 30 10 0 December 08, 2020 1:00am December 17, 2020 1:00am December 18, 2020 1:03am 2 ml ondansetron 2 mg/ml injection (6 sources) Serotonin-3 Receptor Antagonist Start: 03-02-20 End: 03-02-20 4 mg, IntraVENous, Once, On Fri03/02/25 at 1840, For 1 dose Start: 04-26-2022 take 1 tablet by bassem th every eight hours as needed ondansetron (ZOFRAN) 4 mg tablet Take 1 tablet by mouth every 8 hours as needed for nausea/vomiting. 21 tablet 04/26/2022 Active Comment on above: Take 1 tablet by bassem th every 8 hours as needed for nausea/vomiting. pantoprazole 40 mg delayed release oral tablet (17 sources) Proton Pump Inhibitor Start: 03-07-20 End: 05-16-20 take 1 tablet by mouth once daily Pantoprazole 40 mg tablet,delayed release (DR/EC) Discontinued 40 mg PO daily 30 5 May 09, 2025 2:58pm May 16, 2025 10:40am Start: 06-03-2022 End: 08-09-2024 take 1 tablet by mouth once daily pantoprazole DR (PROTONIX) 40 mg tablet Take 1 tablet by mouth once daily. 30 tablet 02/13/2023 Active Start: 04-26-2022 End: 05-26-2022 take 1 tablet by mouth once daily pantoprazole DR (PROTONIX) 40 mg tablet Take 1 tablet by mouth once daily. 30 tablet 0 04/26/2022 05/26/2022 Active Comment on above: Take 1 tablet by bassem th once daily. 1 ml promethazine hydrochloride 25 mg/ml injection (3 sources) Phenothiazine Start: End: inject 25 mg by intramuscular injection once promethazine 25 mg/mL injection solution Discontinued 25 MG IM ONCE 1 December 08, 2020 5:12pm December 08, 2020 6:45pm tetracaine hydrochloride 5 mg/ml ophthalmic solution (2 sources) [facility] Start: End: take 2 drop(s) into the eye(s) once 2 drop, Right Eye, Once, On Fri10/25/24 at 1210, For 1 dose Problems Active Problems Problem Classification Problem Date Documented Da te Episodic/Chronic Abdominal pain (20 sources) Generalized abdominal pain; Translations: [Upper abdominal pain] Onset: 04-25-2022 Resolved: 04-26-2022 04-26-2022 Episodic Allergic reactions (18 sources) Inflammatory dermatosis; Translations: [Dermatitis, unspecified] 06-09-2021 Episodic Anxiety disorders (20 sources) Mixed anxiety and depressive disorder; Translations: [Anxiety disorder, unspecified] 10-26-2021 Chronic Asthma (2 sources) Uncomplicated mild persistent asthma; Translations: [Mild persistent asthma, uncomplicated] 08-09-2024 Chronic Biliary tract disease (5 sources) Biliary sludge; Translations: [Other specified diseases of gallbladder] 04-29-2025 Episodic Chronic obstructive pulmonary disease and bronchiectasis (18 sources) Bronchitis; Translations: [Bronchitis, not specified as acute or chronic] 11-03-2021 Episodic Diabetes mellitus with complications (20 sources) Diabetic ketoacidosis without coma; Translations: [Diabetic ketoacidosis] Onset: 03-25-2019 Resolved: 01-25-2019 03-25-2019 Chronic Diabetes mellitus without complication (20 sources) Type 1 diabetes mellitus; Translations: [Type 1 diabetes mellitus without complications] Onset: 09-18-2012 Resolved: 04-26-2022 03-15-2019 Chronic Diabetes mellitus without complication (20 sources) Hyperglycemia; Translations: [Hyperglycemia, unspecified] Onset: 12-27-2022 11-03-2021 Episodic Diseases of white blood cells (3 sources) Leukocytosis; Translations: [Elevated white blood cell count, unspecified] Onset: 03-25-2019 03-25-2019 Chronic Disorders of lipid metabolism (20 sources) Hypercholesterolemi a; Translations: [Dyslipidemia] Onset: 09-18-2012 12-12-2016 Chronic Disorders of teeth and jaw (10 sources) Dental caries; Translations: [Dental caries, unspecified] Onset: 03-02-2025 03-02-2025 Episodic Esophageal disorders (4 sources) Gastro-esophageal reflux disease without esophagitis; Translations: [Gastroesophageal reflux disease] Onset: 06-02-2022 06-15-2022 Chronic Essential hypertension (20 sources) Hypertensive disorder; Translations: [Essential (primary) hypertension] Onset: 09-18-2012 12-12-2016 Chronic Fluid and electrolyte disorders (20 sources) Lactic acidemia; Translations: [Moderate dehydration] Onset: 03-25-2019 Resolved: 06-03-2022 03-25-2019 Episodic Headache; including migraine (18 sources) Headache; Translations: [Headache] 04-02-2021 Episodic Nausea and vomiting (6 sources) Vomiting, unspecified; Translations: [Nausea with vomiting, unspecified] Onset: 04-24-2022 Resolved: 04-26-2022 04-26-2022 Episodic Other disorders of stomach and duodenum (14 sources) Gastroparesis syndrome; Translations: [Gastroparesis] 03-07-2025 Episodic Other disorders of stomach and duodenum (1 source) Gastroparesis; Translations: [Gastroparesis] Onset: 05-09-2025 Episodic Other endocrine disorders (1 source) Disorder of adrenal gland, unspecified; Translations: [Disorder of adrenal gland, unspecified] Onset: 01-14-2025 Chronic Other gastrointestinal disorders (20 sources) Diarrhea; Translations: [Diarrhea, unspecified] 12-08-2020 Episodic Other gastrointestinal disorders (18 sources) Acute diarrhea; Translations: [Diarrhea, unspecified] 12-10-2020 Episodic Other gastrointestinal disorders (2 sources) Diarrhea, unspecified; Translations: [Vomiting and diarrhea] Onset: 12-27-2022 Episodic Other liver diseases (9 sources) Large liver; Translations: [Hepatomegaly, not elsewhere classified] 03-24-2025 Episodic Other liver diseases (2 sources) Hepatomegaly, not elsewhere classified; Translations: [Hepatomegaly, not elsewhere classified] Onset: 05-13-2025 Episodic Other lower respiratory disease (1 source) Cough; Translations: [Post-COVID chronic cough] 08-09-2024 Episodic Other lower respiratory disease (4 sources) Nodule of lung; Translations: [Solitary pulmonary nodule] 04-27-2025 Episodic Other lower respiratory disease (1 source) Solitary pulmonary nodule; Translations: [Solitary pulmonary nodule] Onset: 05-17-2025 Episodic Other nutritional; endocrine; and metabolic disorders (2 sources) Body mass index 30+ - obesity; Translations: [Obesity (BMI 30-39.9)] Onset: 09-18-2012 12-01-2017 Chronic Other nutritional; endocrine; and metabolic disorders (18 sources) Body mass index 40+ - severely obese; Translations: [Morbid (severe) obesity due to excess calories] 11-04-2019 Chronic Other nutritional; endocrine; and metabolic disorders (18 sources) Hypomagnesemia; Translations: [Hypomagnesemia] 11-06-2019 Chronic Other nutritional; endocrine; and metabolic disorders (1 source) Other specified metabolic disorders; Translations: [Ketosis (HCC)] Onset: 04-02-2022 Chronic Other nutritional; endocrine; and metabolic disorders (3 sources) Obesity caused by energy imbalance; Translations: [Class 1 obesity due to excess calories without serious comorbidity with body mass index (BMI) of 31.0 to 31.9 in adult] Onset: 06-02-2022 06-03-2022 Chronic Other nutritional; endocrine; and metabolic disorders (4 sources) Morbid obesity; Translations: [Morbid (severe) obesity due to excess calories] Onset: 01-25-2020 08-03-2022 Chronic Other screening for suspected conditions (not mental disorders or infectious disease) (5 sources) Other specified abnormal findings of blood chemistry; Translations: [Increased lactic acid level] Onset: 06-01-2022 Resolved: 06-03-2022 06-03-2022 Episodic Other upper respiratory disease (9 sources) Vocal cord dysfunction; Translations: [Other diseases of vocal cords] 08-07-2024 Episodic Other upper respiratory infections (18 sources) Sinusitis; Translations: [Chronic sinusitis, unspecified] 11-06-2019 Chronic Other upper respiratory infections (2 sources) Acute pharyngitis, unspecified; Translations: [Viral upper respiratory tract infection] Onset: 09-02-2022 10-25-2024 Episodic Otitis media and related conditions (20 sources) Acute mastoiditis; Translations: [Acute left mastoiditis] Onset: 04-25-2022 Resolved: 04-26-2022 11-18-2018 Episodic Pancreatic disorders (not diabetes) (4 sources) Exocrine pancreatic insufficiency; Translations: [Exocrine pancreatic insufficiency] 05-09-2025 Episodic Skin and subcutaneous tissue infections (20 sources) Paronychia of toe of right foot; Translations: [Cellulitis of right toe] Onset: 10-25-2024 03-09-2022 Episodic Skull and face fractures (4 sources) Fracture of tooth (traumatic), initial encounter for closed fracture; Translations: [Open wound of tooth (broken) (fractured) (due to trauma), without mention of complication] Onset: 03-02-2025 03-02-2025 Episodic Thyroid disorders (20 sources) Autoimmune thyroiditis; Translations: [Hypothyroidism] Onset: 09-18-2012 12-12-2016 Chronic Unclassified (1 source) Acute cough; Translations: [Acute cough] Onset: 09-03-2022 Unclassified (1 source) Cough, unspecified; Translations: [Cough, unspecified] Onset: 11-25-2024 Urinary tract infections (18 sources) Urinary tract infectious disease; Translations: [Urinary tract infection, site not specified] 11-06-2019 Episodic Viral infection (1 source) COVID-19; Translations: [COVID-19 virus infection] Onset: 06-03-2022 Past or Other Problems Problem Classification Problem Date Documented Da te Episodic/Chronic Cardiac dysrhythmias (2 sources) Tachycardia; Translations: [Tachycardia] Onset: 11-16-2018 Resolved: 11-20-2018 11-20-2018 Episodic Inflammation; infection of eye (except that caused by tuberculosis or sexually transmitteddisease) (6 sources) Unspecified acute conjunctivitis, left eye; Translations: [Viral conjunctivitis] Onset: 09-03-2022 10-25-2024 Episodic Lymphadenitis (1 source) Localized enlarged lymph nodes; Translations: [Cervical lymphadenopathy] Onset: 09-02-2022 Episodic Nutritional deficiencies (3 sources) Undernutrition; Translations: [Mild protein-calorie malnutrition] Onset: 04-25-2022 Resolved: 06-03-2022 06-03-2022 Chronic Other injuries and conditions due to external causes (2 sources) Systemic inflammatory response syndrome; Translations: [SIRS (systemic inflammatory response syndrome)] Onset: 03-25-2019 03-25-2019 Episodic Other lower respiratory disease (1 source) Shortness of breath; Translations: [Shortness of breath] Onset: 01-14-2025 Episodic Other nutritional; endocrine; and metabolic disorders (1 source) Personal history of other endocrine, nutritional and metabolic disease; Translations: [History of diabetes mellitus] Onset: 04-02-2022 Episodic Other upper respiratory disease (1 source) Nasal congestion; Translations: [Sinus congestion] Onset: 09-03-2022 Episodic Pneumonia (except that caused by tuberculosis or sexually transmitted disease) (1 source) Pneumonia, unspecified organism; Translations: [Pneumonia of left lower lobe due to infectious organism] Onset: 09-03-2022 Episodic Residual codes; unclassified (1 source) Personal history of other specified conditions; Translations: [History of vomiting] Onset: 04-02-2022 Episodic Septicemia (except in labor) (2 sources) Sepsis; Translations: [Sepsis] Onset: 11-17-2018 03-25-2019 Episodic Viral infection (3 sources) Disease caused by 2019-nCoV; Translations: [COVID-19] Onset: 06-02-2022 06-15-2022 Episodic Results Test Name Value Interpretation Reference Range Facility Chest WITH Contraston 2024 Chest WITH Contrast [facility] [address] [place], [place] [address] Chest WITH Contrast MR#: [id number] Acct: [id number] Name: SANTIAGO JACOBSEN Rep #: [id number] : 2000 F 25 From: Truong Hinson MD PCP: Dr. Skylar Fong MD Status: REG CLI Study: Chest WITH Contrast Date of Exam: 05/17/25 Exam# [id number] Ordering Dr: Dorothy Boykin MASTER COOK-C PROCEDURE: CHEST WITH CONTRAST 05/17/2025 REASON FOR EXAM: NEW LUNG NODULE ON ABD/PELVIS CT TECHNIQUE: CHEST WITH CONTRAST Coronal and Sagittal reconstruction series were provided. CONTRAST: Isovue 370 VOLUME: 99 mL One or more dose reduction techniques were used (e.g., Automated exposure control, adjustment of the mA and/or kV according to patient size, use of iterative reconstruction technique). RADIATION DOSE SUMMARY: CTDlvol: 23 mGy DLP: 431 mGycm COMPARISON: Abdominopelvic CT 04/15/2025, chest x-ray 10/2024 FINDINGS: Unremarkable base of neck and axilla. Thoracic spine scoliosis. Normal esophagus. Normal heart size. No acute vascular pathology. Prevertebral soft tissue, likely thymic remnant. Mild bilateral hilar adenopathy usually reactive. No acute chest wall findings. Suspected hepatomegaly and diffuse hepatic steatosis consistent with medical liver disease. Refer to recent abdominal CT report. No acute upper abdominal pathology noted. Central airways are patent. Under aeration at the lung bases. No effusion or pneumothorax. On the left, series 4 images 52/54, there is a rounded semi-solid density measuring approximately 9 x 11 mm. Could represent a semi-solid mass, as well as a rounded focus of airspace disease. On the previous abdominal CT, the lesion was incompletely imaged. However, it was larger, measuring up to 16 mm, and clearly more dense on the prior examination which suggested it may be resolving. On the right, no suspicious lung nodules. CT/Chest WITH Contrast IMPRESSION: Left lower lobe semi-solid rounded density, decreased in size and density since recent abdominal CT, suggesting it is a resolving infectious/inflammatory process, rather than tumor. Consider three-month follow up chest CT. Reading Location: [place] [address] CC: RIO Boykin; Dr. Skylar Fong MD [employer] Management System Operator: Signed Normal [facility] Surgery Visit Reporton 05-16 Surgery Visit Report [facility] [address] [place] [address] OFFICE VISIT Date of Service: 05/16/25 MR#: [id number] Acct: [id number] Name: SANTIAGO JACOBSEN Rep #: [id number] : 2000 Provider: Dr. Kristin patino MD Age/Sex: 25/F Location: [facility] Status: Signed Intake Vital Signs 07/30/24 17:55 05/16/25 10:10 Height 5 ft 2 in 5 ft 2 in Weight: 185 lb 6 oz BMI 33.9 BP 152/90 H Blood Pressure Location Rt brachial Position Sitting Respiration 18 Pulse 100 Pulse Source Monitor Temp 97.2 F L Temp Source Temporal Pulse Oximetry (%) 97 Oxygen Delivery Method room air Intake Visit Reasons: ABNORMAL HIDA Chief Complaint: abnormal HIDA Allergies No Known Allergies Allergy (Verified 03/07/25 08:08) Medications ???Medication ???Instructions ???Recorded ???Confirmed ???Type insulin NPH isoph U-100 human 100 10 unit subcut BREAKFAST Check 05/16/25 History unit/mL subcutaneous suspension with primary doctor (Novolin N NPH U-100 Insulin isophane) insulin NPH isoph U-100 human 100 30 unit subcut QHS Check with 05/16/25 History unit/mL subcutaneous suspension primary doctor (Novolin N NPH U-100 Insulin isophane) insulin regular human 100 unit/mL 10 unit subcut TID Check with 05/16/25 History injection solution (Novolin R primary doctor Regular U-100 Insulin) insulin regular human 100 unit/mL See Protocol subcut ACHS Check 05/16/25 History injection solution (Novolin R with primary doctor Regular U-100 Insulin) dicyclomine 10 mg capsule 10 mg PO TID PRN abdominal pain 05/16/25 Rx #60 caps colestipol 1 gram tablet 1 g PO TIDWMEAL 2 weeks #42 tabs 0 05/09/25 05/16/25 Rx omeprazole 40 mg capsule,delayed 40 mg PO QDAY #30 caps 05/16/25 Rx release sucralfate 1 gram tablet 1 g PO QACHS #56 tabs 05/16/25 Rx PFSH Medical History (Updated 05/18/25 @ 11:[address] Kristin Alejandra MD) Abnormal biliary HIDA scan Hypertension Anxiety and depression Hypothyroidism Dyslipidemia (high LDL; low HDL) Surgical History Hx of tympanostomy tubes History of tonsillectomy Family History Other CVA (cerebral vascular accident) Diabetes Heart disease Hypertension Social History Smoking Status: Never smoker HPI HPI HPI: 25-year-old female presents due to abnormal HIDA scan as well as abdominal pain nausea vomiting. Patient has also been seeing GI currently she is on medication for exocrine pancreatic insufficiency. Patient also has upcoming MRCP and ultrasound with elasticity ordered for next week. Patient did have elevated liver functions mildly in December which did resolve for April labs. Patient has had an ultrasound of the gallbladder in March that showed normal wall, no Marvin sign, no pericholecystic fluid small amount of gallbladder sludge normal common bile duct also called hepatomegaly and hepatic steatosis, patient also had a gastric emptying study that called delayed emptying 16% instead of less than 10% at 4 hours. Patient's previous EGD done in March [address] Delgado showed gastritis due to food retention per report. Patient states that she gets abdominal pain about shelter through the meals and can have nausea vomiting due to the increased pain. Patient states this has been going on for couple of years. Patient states she has epigastric and left upper quadrant pain and has been having diarrhea daily. Patient states her weight has been fluctuating states a month ago was 153 currently is 185 in office--from records in July 2024 she was 163 prior that records are from 2021 and she was 185. ROS General General: Yes weight change and fatigue; No appetite, colon cancer, breast cancer or weakness HEENT HEENT: No difficulty swallowing, eye injury, eye surgery, swollen glands or hoarseness Endo Endocrine: Yes diabetes mellitus; No thyroid disease, thyroid cancer, Hair loss, heat intolerance or cold intolerance Skin Skin: No rash or changing moles Musc Musculoskeletal: No back problems, arthritis, rheumatoid arthritis, gout or joint pain Cardio Cardiovascular: No murmur, pacemaker, heart disease, atrial fibrillation, high blood pressure, heart attack, heart stent, palpitations, shortness of breath with exertion or chest pain Psych Psychiatric: Yes depression and anxiety; No hearing voices Resp Respiratory: No shortness of breath, No sleep apnea, Yes cough, No COPD, Yes asthma, No emphysema and No wheezing Gastro Gastrointestinal: Yes abdominal pain, Yes nausea or vomi (more content not included)... Normal [facility] KATHY w/ Reflex Mult Confirmon 05-12-2025 ANTI-DNA (DS)AB TNP Normal [facility] Comment on above: Performed By: #### L 3410.9994, L803.2200, L3100.5450, L800.1280, L3410.9992 #### [facility] [address] [facility] [place], [place], [id number] ANTI-SS-A TNP Normal [facility] Comment on above: Performed By: #### L 3410.9994, L803.2200, L3100.5450, L800.1280, L3410.9992 #### [facility] [address] [place], [address] ANTI-SS-B TNP Normal [facility] Comment on above: Performed By: #### L 3410.9994, L803.2200, L3100.5450, L800.1280, L3410.9992 #### [facility] [address] [place], [address] L3410.9992on 05-12-2025 [facility] [place]. COMMENT Normal . [facility] Comment on above: Order Comment: Test( s) 533146-Nmnqvcci,F,ug/L,U was developed and its performance characteristics determined by [facility]. It has not been cleared or approved by the Food and Drug Administration. Result Comment: Test Ordered: [id number] Enhanced Liver Fibrosis (ELF) ELF(TM) Score 8.04 Reference Range: <9.80 ELF(TM) Score Interpretation: Risk cut-offs to assess the likelihood of progression to cirrhosis and liver-related clinical events within 3.9 years following baseline ELF score (IQR: 14.0-22.4 months)*: Lower risk < 9.80 Mid risk 9.80 - 11.29 Higher risk >11.29 Note: The ELF(TM) Score is a unitless numerical value. *Joe SA, Joni VW, Renetta T, et al. Selonsertib for patients with bridging fibrosis or compensated cirrhosis due to CHA: Results from randomized phase III STELLAR trials. J Hepatol. 2020 Apr;73(1):26-39. Performed at: [facility] [address] [id number] Memorial Marker Designer: Lorenzo Jon MD, Phone: [phone] Performed at: [address] [id number] Memorial Marker Designer: Lazaro Caputo PhD, Phone: [phone] Performed By: #### M 600.5000, M100.115, A4913.8719 #### [facility] [address] [place], [place], [address] Anti-Mitochondrial ABon - ANTIMITOCHON AB <20.0 Normal 0.0-20.0 [facility] Comment on above: Result Comment: Nega tive 0.0 - 20.0 Equivocal 20.1 - 24.9 Positive >24.9 Mitochondrial (M2) Antibodies are found in 90-96% of patients with primary biliary cirrhosis. Performed By: #### L 3410.9994, L803.2200, L3100.5450, L800.1280, L3410.9992 #### [facility] [address] [place], [place], [address] Anti-Smooth Muscle ABSon ANTISMOOTH MUSC 5 Units Normal 0-19 [facility] Comment on above: Result Comment: Nega tive 0 - 19 Weak positive 20 - 30 Moderate to strong positive >30 Actin Antibodies are found in 52-85% of patients with autoimmune hepatitis or chronic active hepatitis and in 22% of patients with primary biliary cirrhosis. Performed at: [address] [id number] Memorial Marker Designer: Lazaro Caputo PhD, Phone: [phone] Performed By: #### L 3410.9994, L803.2200, L3100.5450, L800.1280, L3410.9992 #### [facility] [address] [place], [place], [address] L3410.9994on 05-11-2025 [facility] Misc. 2 COMMENT Normal . [facility] Comment on above: Order Comment: [id number] aldolase Result Comment: Test Ordered: [id number] Aldolase Aldolase 5.1 U/L Reference Range: 3.3-10.3 Performed at: [address] [id number] Memorial Marker Designer: Lazaro Caputo PhD, Phone: [phone] Performed By: #### L 3410.9994, L803.2200, L3100.5450, L800.1280, L3410.9992 #### [facility] [address] [place], [place], [id number] Gastroenterology Visit Repor ton 05-09-2025 Gastroenterology Visit Report [facility] [address] [place] [address] OFFICE VISIT Date of Service: 05/09/25 MR#: [id number] Acct: [id number] Name: SANTIAGO JACOBSEN Rep #: [id number] : 2000 Provider: RIO mcgee Age/Sex: 25/F Location: [email or web address] Status: Signed Intake Vital Signs 07/30/24 17:55 Height 5 ft 2 in Intake Visit Reasons: 2 M FU Chief Complaint: DKA Allergies No Known Allergies Allergy (Verified 03/07/25 08:08) PFSH Medical History Hypertension Anxiety and depression Hypothyroidism Dyslipidemia (high LDL; low HDL) Surgical History Hx of tympanostomy tubes History of tonsillectomy Family History Other CVA (cerebral vascular accident) Diabetes Heart disease Hypertension Social History Smoking Status: Never smoker HPI HPI Chief Complaint: DKA Details: SANTIAGO JACOBSEN, is a 25 F who presents to the office today for FU. 03.07.25 OV establishment with [facility] regarding diarrhea with urgency and significant nausea with abdominal pain. She has a history of Type I DM, last GET was a 4hr test showing 92.5% activity at 0.5 hr, 78% at 1hr, 56% at 2hr, 32% at 3hr, and 32% at 4hr with the impression of moderate delayed gastric emptying performed at [facility]. She states that she was told by her previous GI doctor her GET was normal and that he told her to just take Imodium for the diarrhea. She reports that she is never able to finish a meal completely, will nearly get half way through a meal before having to [place] for the restroom. She experiences daily abdominal pain with nausea, she takes pantoprazole 40mg daily. Last EGD done 03.29.24: gastritis with retained food. She reports 200 lb weight loss since 2017, mostly unintentional, with current weight of 167 lb. She reports history of using metformin since she was 7yrs old, and only stopped in the last year or so. She last saw an endocrinology group in [place], but was very unhappy with their care. Her PCP, , has been managing her insulin orders. She denies difficulty chewing and swallowing, heartburn, reflux, constipation, hematochezia, and melena. She denies change in water source, travel out of the country, or exposure to known ill persons. She states that she tried pancreatic enzyme replacement in the past but feels that the dosing was less than required so she continued to have diarrhea. 6.2.25 GB US Hepatomegaly(24.7cm) and hepatic steatosis. No acute cholecystitis. CBD 5.6mm. GB sludge noted, negative sonographic Marvin's. Nonspecific increased echogenicity of the panc reas. 625 GET results: last done 2022 Percent activity remaining in stomach: 1 hour 63 % (normal 37-90%) 2 hours: 47 % (normal 30-60%) 4 hours: 16 % (normal 0-10%) 04.15.25 CT abd/pelvis: Medical liver disease. Correlate for possible hepatitis. Left lower lobe lung nodule, recommend chest CT. 7.7.25 HIDA: There is nonvisualization of the gallbladder 120 minutes following radiopharmaceutical injection suggestive of acute cholecystitis. 7.7.25 Biochemical: CBC PT/INR wnl, glucose 287,CO2 17.1,anion 16,creat 0.57,ferritin 93,GGT 36,AlkPhos 140,Acute Hepatitis panel NEG 7.21.25 OV She continues to report RUQ abdominal pain with associated nausea, that increases in severity postprandially. She describes the pain as sharp cramping. She continues to have fecal urgency with watery diarrhea that worsens with eating. She has EPI in addition to DM,I. PERT failed in past with [facility] and then [facility]. She struggles with maintaining appropriate levels of blood glucose, but hgb A1c is down to 8-something. She does admit that she may double-dose herself with insulin due to her not remembering if she treated her recent glucose reading and seeing the value continue to increase. She abstains from eating when she has plans with friends to reduce bathroom frequency. ROS Const Constitutional: Positive for fatigue; No fever(s) or weight change ENT ENT: No difficulty swallowing Gastro GI: Positive for abdominal pain, diarrhea, heartburn, nausea/dyspepsia and vomiting; No belching, bloating, change in bowel habits, change in stool character, coffee ground emesis, constipation, cramping, difficulty swallowing, feeling full early, excessive flatus, incontinent of stools, Vomiting blood/hematemesis, Blood in stool, loose stools, Black,tarry stools, pain with swallowing or other Musc Musculoskeletal: Positive for joint pain, back pain and stiffness Skin Skin: No yellowing of the eye or itchy eyes Psych Psychiatric: Positive for anxiety and Positive for depression Endo Endocrine: Positive for fatigue (more content not included)... Normal [facility] Serum DNA double strand anti body assay (units/volume)Ordered By: Dorothy Boykin on 05-09-2025 DNA double strand Ab Qn (S) [facility] Comment on above: Test not performed Serum Scl-70 antibody assay (units/volume)Ordered By: Dorothy Boykin on 05-09-2025 SCL-70 extractable nuclear Ab Qn (S) [facility] Comment on above: Test not performed Serum mitochondria antibody detectionOrdered By: Dorothy Boykin on 05-09-2025 Mitochondria Ab Ql (S) <20.0 Units 0.0-20.0 [facility] Comment on above: Negative 0.0 - 20.0 Equivocal 20.1 - 24.9 Positive >24.9Mitochondrial (M2) Antibodies are found in 90-96% ofpatients with primary biliary cirrhosis. Serum or plasma actin IgG an tibody assay (units/volume)Ordered By: Dorothy Boykin on 05-09-2025 Actin IgG Qn 5 Units 0-19 [facility] Comment on above: Negative 0 - 19 Weak positive 20 - 30 Moderate to strong positive >30 Actin Antibodies are found in 52-85% of patients with autoimmune hepatitis or chronic active hepatitis and in 22% of patients with primary biliary cirrhosis.Performed at: [facility] [id number] Director: Lazaro Caputo PhD, Phone: [phone] Ceruloplasminon 04-26-2025 CERULOPLASMIN 31.8 mg/dL Normal 19.0-39.0 [facility] Comment on above: Performed By: #### M 027.4356, M100.217, L3600.5400 #### [facility] [address] [place], [address] Hepatitis A IgM Antibodyon 0 04-26-2025 HEPATITIS A-IgM Negative Normal Negative [facility] Comment on above: Result Comment: A ne gative anti-HAV IgM result suggests no recent or current HAV infection. Performed By: #### M 600.5000, M100.637, L3600.5400 #### [facility] [address] [place], [address] Hepatitis B Core AB IgMon HEP B CORE,IgM Negative Normal Negative [facility] Comment on above: Result Comment: Perf ormed at: [facility] [address] [id number] Memorial Marker Designer: Lazaro Caputo PhD, Phone: [phone] Performed By: #### M 600.5000, M100.637, L3600.5400 #### [facility] [address] [place], [address] L501.5101on 04-26-2025 GGTP 36 IU/L Normal 0-60 [facility] Comment on above: Performed By: #### M 600.5000, M100.637, L3600.5400 #### [facility] [address] [place], [address] Absolute lymphocyte countOrd ered By: Dorothy Boykin on 04-25-2025 Lymphocytes Auto (Unsp spec) [#/Vol] 2.13 10*3/uL 0.83-4.51 [facility] Absolute neutrophil countOrd ered By: Dorothy Boykin on 04-25-2025 Neutrophils (Bld) [#/Vol] 6.2 10*3/uL 2.0-7.7 [facility] Anion gap in Serum or Plasma Ordered By: Dorothy Boykin on 04-25-2025 Anion gap [Moles/Vol] 16 mmol/L High 5-15 [facility] Comment on above: Previous reported re sult: 13 Edited by: AUTOINKristen on 04/25/25:1340 AMENDED REPORT 04/25/25 1340 GAP previously reported as: 13 Automated lymphocyte count a s percentage of total leukocytesOrdered By: Dorothy Boykin on 04-25-2025 Lymphocytes/100 WBC Auto (Unsp spec) 23.5 % 19-41 [facility] BUN/creatinine ratioOrdered By: Dorothy Boykin on 04-25-2025 Urea nitrogen/Creatinine [Mass ratio] 18.3 mg/mg 10- [facility] Comment on above: Previous reported re sult: 18.7 RATIOEdited by: AUTOINS on 04/25/25:1340 AMENDED REPORT 04/25/25 1340 BUN/CRE previously reported as: 18.7 RATIO Basic Metabolic Profile (BMP )on 04-25-2025 BUN/CRE 18.3 RATIO Normal 08-08 [facility] Comment on above: Result Comment: AMENDED REPORT 04/25/25 1340 BUN/CRE previously reported as: 18.7 RATIO Performed By: #### M 600.5000, M100.637, L3600.5400 #### [facility] [address] [place], [address] Calcium [Mass/Vol] 9.2 mg/dL Normal 7.6-11.0 [facility] Comment on above: Result Comment: AMENDED REPORT 04/25/25 1340 CA previously reported as: 9.3 mg/dL Performed By: #### M 600.5000, M100.637, L3600.5400 #### [facility] [address] [place], [address] Chloride [Moles/Vol] 106 mmol/L Normal 98-108 [facility] Comment on above: Performed By: #### M 600.5000, M100.637, L3600.5400 #### [facility] [address] [place], [address] CO2 [Moles/Vol] 17.1 mmol/L Low 21.0-32.0 [facility] Comment on above: Result Comment: AMENDED REPORT 04/25/251339 CO2 previously reported as: 18.5 L mmol/L Performed By: #### M 600.5000, M100.637, L3600.5400 #### [facility] [address] [place], [address] Creatinine [Mass/Vol] 0.57 mg/dL Low 0.70-1.20 [facility] Comment on above: Result Comment: AMENDED REPORT 04/25/251339 CREAT,SERUM previously reported as: 0.55 L mg/dL Performed By: #### M 600.5000, M100.637, L3600.5400 #### [facility] [address] [place], [address] GAP 16 High 5-15 [facility] Comment on above: Result Comment: AMENDED REPORT 04/25/251339 GAP previously reported as: 13 Performed By: #### M 600.5000, M100.637, L3600.5400 #### [facility] [address] [place], [address] Glucose [Mass/Vol] 287 mg/dL High 70-99 [facility] Comment on above: Result Comment: AMENDED REPORT 04/25/251339 GLU previously reported as: 289 H mg/dL Performed By: #### M 600.5000, M100.637, L3600.5400 #### [facility] [address] [place], [address] Potassium [Moles/Vol] 4.3 mmol/L Normal 3.3-5.1 [facility] Comment on above: Performed By: #### M 600.5000, M100.637, L3600.5400 #### [facility] [address] [place], [address] Sodium [Moles/Vol] 139 mmol/L Normal 133-145 [facility] Comment on above: Result Comment: AMENDED REPORT 04/25/25 1340 NA previously reported as: 138 mmol/L Performed By: #### M 600.5000, M100.637, L3600.5400 #### [facility] [address] [place], [address] Urea nitrogen [Mass/Vol] 10 mg/dL Normal 4-19 [facility] Comment on above: Performed By: #### M 600.5000, M100.637, L3600.5400 #### [facility] [address] [place], [address] Basophil percentageOrdered B y: Dorothy Boykin on 04-25-2025 Basophils/100 WBC (Bld) 1.1 % High 0-1 [facility] Bilirubin directOrdered By: Dorothy Boykin on 04-25-2025 Bilirubin.direct [Mass/Vol] 0.14 mg/dL 0.00-0.30 [facility] Bilirubin, totalOrdered By: Dorothy Boykin on 04-25-2025 Bilirubin [Mass/Vol] 0.38 mg/dL 0.00-1.30 [facility] Comment on above: Previous reported re sult: 0.33 mg/dLEdited by: GIANLUCA on 04/25/25:1340 AMENDED REPORT 04/25/25 1340 T BILI previously reported as: 0.33 mg/dL CBC W/Diff, Automatedon Absolute Lymph 2.13 X10 3/uL Normal 0.83-4.51 [facility] Comment on above: Performed By: #### M 600.5000, M100.637, L3600.5400 #### [facility] [address] [place], [address] Absolute Neut 6.2 X10 3/uL Normal 2.0-7.7 [facility] Comment on above: Performed By: #### M 600.5000, M100.637, L3600.5400 #### [facility] [address] [place], [address] Basophils/100 WBC (Bld) 1.1 % High 0-1 [facility] Comment on above: Performed By: #### M 600.5000, M100.637, L3600.5400 #### [facility] [address] [place], [address] Eosinophils/100 WBC (Bld) 1.9 % Normal 0-5 [facility] Comment on above: Performed By: #### M 600.5000, M100.637, L3600.5400 #### [facility] [address] [place], [address] Erythrocyte distribution width (RBC) [Ratio] 12.5 % Normal 11.6-14.6 [facility] Comment on above: Performed By: #### M 600.5000, M100.637, L3600.5400 #### [facility] [address] [place], [address] Hematocrit (Bld) [Volume fraction] 37.6 % Normal 37-47 [facility] Comment on above: Performed By: #### M 600.5000, M100.637, L3600.5400 #### [facility] [address] [place], [address] Hemoglobin (Bld) [Mass/Vol] 12.4 g/dL Normal 12.0-15.0 [facility] Comment on above: Performed By: #### M 600.5000, M100.637, L3600.5400 #### [facility] [address] [place], [address] IG% 0.700 Normal 0.0-0.9 [facility] Comment on above: Result Comment: IG% - Immature Granulocytes (promyelocytes, myelocytes and metamyelocytes) > 1% indicates that a LEFT SHIFT is Present. Performed By: #### M 600.5000, M100.637, L3600.5400 #### [facility] [address] [place], [address] Lymphocytes/100 WBC (Bld) 23.5 % Normal 19-41 [facility] Comment on above: Performed By: #### M 600.5000, M100.637, L3600.5400 #### [facility] [address] [place], [address] MCH (RBC) [Entitic mass] 28.2 pg Normal 27.0-32.0 [facility] Comment on above: Performed By: #### M 600.5000, M100.637, L3600.5400 #### [facility] [address] [place], [address] MCHC (RBC) [Mass/Vol] 33.0 g/dL Normal 32-36 [facility] Comment on above: Performed By: #### M 600.5000, M100.637, L3600.5400 #### [facility] [address] [place], [address] MCV (RBC) [Entitic vol] 85.5 fL Normal 81-99 [facility] Comment on above: Performed By: #### M 600.5000, M100.637, L3600.5400 #### [facility] [address] [place], [address] Monocytes/100 WBC (Bld) 5.0 % Normal 0-10 [facility] Comment on above: Performed By: #### M 600.5000, M100.637, L3600.5400 #### [facility] [address] [place], [address] Neutrophils/100 WBC (Bld) 67.8 % Normal 47-70 [facility] Comment on above: Performed By: #### M 600.5000, M100.637, L3600.5400 #### [facility] [address] [place], [address] Nucleated RBC (Bld) [#/Vol] 0 10*3/uL Normal 0-5 [facility] Comment on above: Performed By: #### M 600.5000, M100.637, L3600.5400 #### [facility] [address] [place], [address] Platelet mean volume (Bld) [Entitic vol] 9.7 fL Normal 6.2-12.0 [facility] Comment on above: Performed By: #### M 600.5000, M100.637, L3600.5400 #### [facility] [address] [place], [address] Platelets (Bld) [#/Vol] 407 10*3/uL Normal 150-450 [facility] Comment on above: Performed By: #### M 600.5000, M100.637, L3600.5400 #### [facility] [address] [place], [address] RBC (Bld) [#/Vol] 4.40 10*6/uL Normal 4.2-5.4 [facility] Comment on above: Performed By: #### M 600.5000, M100.637, L3600.5400 #### [facility] [address] [place], [address] RDW SD 39.0 fl Normal 35.1-43.9 [facility] Comment on above: Performed By: #### M 600.5000, M100.637, L3600.5400 #### [facility] [address] [place], [address] WBC (Bld) [#/Vol] 9.1 10*3/uL Normal 4.4-11.0 [facility] Comment on above: Performed By: #### M 600.5000, M100.637, L3600.5400 #### [facility] [address] [place], [place], [address] CRPon 04-25-2025 C-REACTIVE PROT 3.62 mg/L High 0.0-3.0 [facility] Comment on above: Performed By: #### M 600.5000, M100.637, L3600.5408 #### [facility] [address] [place], [address] Carbon dioxide, total [Moles /volume] in Central venous bloodOrdered By: Dorothy Boykin on 04-25-2025 CO2 [Moles/Vol] 17.1 mmol/L Low 21.0-32.0 [facility] Comment on above: Previous reported re sult: 18.5 mmol/LEdited by: GIANLUCA on 04/25/25:1340 AMENDED REPORT 04/25/25 1340 CO2 previously reported as: 18.5 L mmol/L Chloride assayOrdered By: Juan M Boykin on 04-25-2025 Chloride [Moles/Vol] 106 mmol/L 98-108 [facility] Eosinophil percentageOrdered By: Dorothy Boykin on 04-25-2025 Eosinophils/100 WBC (Bld) 1.9 % 0-5 [facility] Erythrocyte distribution wid th ratioOrdered By: Dorothy Boykin on 04-25-2025 Erythrocyte distribution width (RBC) [Ratio] 12.5 % 11.6-14.6 [facility] Erythrocyte distribution wid th standard deviationOrdered By: Dorothy Boykin on 04-25-2025 Erythrocyte distribution width (RBC) [Ratio] 39.0 fl 35.1-43.9 [facility] Ferritinon 04-25-2025 Ferritin [Mass/Vol] 93 ng/mL Normal 22-378 [facility] Comment on above: Performed By: #### M 600.5000, M100.637, L3600.5400 #### [facility] [address] [place], [place], [id number] Gamma glutamyl transferase ( GGT) measurementOrdered By: Dorothy Boykin on 04-25-2025 Amylase [Catalytic activity/Vol] 36 U/L 0-60 [facility] Glomerular filtration rate ( GFR) estimation/1.73 sq m using serum, plasma, or whole bOrdered By: Dorothy Boykin on 04-25-2025 GFR/1.73 sq M.predicted among non-blacks MDRD (S/P/Bld) [Vol rate/Area] 130 mL/min/{1.73_m2} >60 [facility] Comment on above: mL/min/1.73m2 CKD-EP I Creatinine Equation (2020) Hematocrit Auto (Bld) [Volum e fraction]Ordered By: Dorothy Boykin on 04-25-2025 Hematocrit (Bld) [Volume fraction] 37.6 % 37-47 [facility] Hemoglobin measurementOrdere d By: Dorothy Boykin on 04-25-2025 Hemoglobin (Bld) [Mass/Vol] 12.4 g/dL 12.0-15.0 [facility] Hepatitis C Antibodyon 04-25 Hepatitis C Ab Non-Reactive Normal Nonreactive [facility] Comment on above: Result Comment: Reac tive: Presumptive evidence of antibodies to HCV. Follow CDC recommendations for supplemental testing. Non-Reactive: Antibodies to HCV were not detected; does not exclude the possibility of exposure to HCV Reactive Results are presumptive evidence of antibodies to HCV. Follow CDC recommendations for supplemental testing. Order confirmation testing: HCV Quant by PCR testing - HCVPCR #[id number] Non Reactive: < 0.8 Equivocal: >/= 0.8 to < 1.0 Reactive: >/= 1.0 The CDC requires that a reactive/equivocal HCV antibody result be sent out for confirmation. HCV Quant by PCR testing. Performed By: #### M 600.5000, M100.637, L3600.5400 #### [facility] [address] [facility] [place], [place], [address] Hepatobilliary Imagingon Hepatobilliary Imaging [facility] [address] [place], [place] [address] Hepatobilliary Imaging MR#: [id number] Acct: [id number] Name: SANTIAGO JACOBSEN Rep #: [id number] : 2000 F 25 From: Asim Mercado MD PCP: Dr. Skylar Fong MD Status: REG CLI Study: Hepatobilliary Imaging Date of Exam: 04/25/25 Exam# [id number] Ordering Dr: Dorothy Boykin PROCEDURE: HEPATOBILIARY IMAGING 04/25/2025 REASON FOR EXAM: GB SLUDGE SEEN BY US TECHNIQUE: Intravenous Choletec with planar imaging of the abdomen. RADIOPHARMACEUTICAL: 5.7 mCi of technetium 99 M mebrofenin. COMPARISON: None. FINDINGS: There is normal homogeneous uptake by the hepatic parenchyma. The extrahepatic biliary tree is seen by 10 minutes in the small bowel by 15 minutes following radiopharmaceutical injection. There is non visualization of the gallbladder up to 120 minutes following radiopharmaceutical injection. At that point the exam was terminated. NM/Hepatobilliary Imaging IMPRESSION: There is nonvisualization of the gallbladder 120 minutes following radiopharmaceutical injection suggestive of acute cholecystitis. Reading Location: [facility] CC: RIO Boykin; Dr. Skylar Fong MD [employer] Operator: Signed Normal [facility] Immature granulocytes/100 WB C Auto (Bld)Ordered By: Dorothy Boykin on 04-25-2025 Immature granulocytes/100 WBC (Bld) 0.700 % 0.0-0.9 [facility] Comment on above: IG% - Immature Granu locytes (promyelocytes, myelocytes and metamyelocytes) > 1% indicates that a LEFT SHIFT is Present. International normalized rat io (INR) calculationOrdered By: Dorothy Boykin on 04-25-2025 INR Coag (Bld) [Relative time] 1.0 {INR} [facility] Ironon 04-25-2025 Iron [Mass/Vol] 61 ug/dL Normal 50-170 [facility] Comment on above: Performed By: #### M 600.5000, M100.637, L3600.5400 #### [facility] [address] [place], [place], [id number] Iron measurement (mass/mass) Ordered By: Dorothy Boykin on 04-25-2025 Iron (Unsp spec) [Mass/Mass] 61 ug/dL 50-170 [facility] L3890.6102on 04-25-2025 HEP B Surf Ag Non-Reactive Normal Nonreactive [facility] Comment on above: Result Comment: Reac tive: Presumptive evidence of HBV. Repeatedly reactive samples must be confirmed using a neutralization test ([employer] HBsAg Confirmatory Test) Non-Reactive: HBsAg not detected; does not exclude the possibility of exposure to HBV Performed By: #### M 600.5000, M100.637, L3600.5400 #### [facility] [address] [place], [address] L509.6001on 04-25-2025 CORTISOL 11.40 ug/dL Normal 6.02-18.40 [facility] Comment on above: Performed By: #### M 600.5000, M100.637, L3600.5400 #### [facility] [address] [facility] [place], [place], [id number] Laboratory - Chemistry and C hemistry - challengeOrdered By: Dorothy Boykin on 04-25-2025 AST [Catalytic activity/Vol] 26 U/L <32 [facility] Comment on above: Previous reported re sult: 25 U/LEdited by: GIANLUCA on 04/25/25:1340 AMENDED REPORT 04/25/25 1340 AST previously reported as: 25 U/L Laboratory - Microbiology an d Antimicrobial susceptibilityOrdered By: Dorothy Boykin on 04-25-2025 HBV surface Ag Ql (S) Non-Reactive Nonreactive [facility] Comment on above: Reactive: Presumptiv e evidence of HBV. Repeatedly reactive samples must be confirmed using a neutralization test ([employer] HBsAg Confirmatory Test)Non-Reactive: HBsAg not detected; does not exclude the possibility of exposure to HBV Lipaseon 04-25-2025 Lipase [Catalytic activity/Vol] 26 U/L Normal 13-75 [facility] Comment on above: Result Comment: Chao pompa note: LIPASE revised reference range effective 23. New Lipase methodology. Expected to produce lower values than the previous assay method. NEW Reference Range: 13 - 75 U/L Performed By: #### M 600.5000, M100.637, L3600.5400 #### [facility] [address] [place], [address] Lipase measurementOrdered By : Dorothy Boykin on 04-25-2025 Lipase [Catalytic activity/Vol] 26 U/L 13-75 [facility] Comment on above: Please note:LIPASE r evised reference range effective 23. New Lipase methodology. Expected to produce lower values than the previous assay method. NEW Reference Range: 13 - 75 U/L Liver Profileon 04-25-2025 Albumin [Mass/Vol] 3.6 g/dL Normal 3.5-5.0 [facility] Comment on above: Result Comment: AMENDED REPORT 04/25/251339 ALB previously reported as: 3.8 g/dL Performed By: #### M 600.5000, M100.637, L3600.5400 #### [facility] [address] [place], [address] ALK PHOS 140 U/L High 35-104 [facility] Comment on above: Result Comment: AMENDED REPORT 04/25/25 134 ALK P previously reported as: 138 H U/L Performed By: #### M 600.5000, M100.637, L3600.5400 #### [facility] [address] [place], [address] ALT [Catalytic activity/Vol] 23 U/L Normal <=34 [facility] Comment on above: Result Comment: AMENDED REPORT 04/25/251339 ALT previously reported as: 21 U/L Performed By: #### M 600.5000, M100.637, L3600.5400 #### [facility] [address] [place], [address] AST [Catalytic activity/Vol] 26 U/L Normal <=31 [facility] Comment on above: Result Comment: AMENDED REPORT 04/25/251339 AST previously reported as: 25 U/L Performed By: #### M 600.5000, M100.637, L3600.5400 #### [facility] [address] [place], [address] Bilirubin [Mass/Vol] 0.38 mg/dL Normal 0.00-1.30 [facility] Comment on above: Result Comment: AMENDED REPORT 04/25/251339 T BILI previously reported as: 0.33 mg/dL Performed By: #### M 600.5000, M100.637, L3600.5400 #### [facility] [address] [place], [address] Bilirubin.direct [Mass/Vol] 0.14 mg/dL Normal 0.00-0.30 [facility] Comment on above: Performed By: #### M 600.5000, M100.637, L3600.5400 #### [facility] [address] [place], [address] Globulin (S) [Mass/Vol] 3.8 g/dL Normal 2.2-4.2 [facility] Comment on above: Result Comment: AMENDED REPORT 04/25/251339 GLOB previously reported as: 3.5 g/dL Performed By: #### M 600.5000, M100.637, L3600.5400 #### [facility] [address] [place], [address] T PROT 7.4 g/dL Normal 5.9-8.4 [facility] Comment on above: Result Comment: AMENDED REPORT 04/25/251339 T PROT previously reported as: 7.3 g/dL Performed By: #### M 600.5000, M100.637, L3600.5400 #### [facility] [address] [place], [address] MCV (mean corpuscular volume ) determinationOrdered By: Dorothy Boykin on 04-25-2025 MCV (RBC) [Entitic vol] 85.5 fL 81-99 [facility] Mean corpuscular hemoglobin (MCH) determinationOrdered By: Dorothy Boykin on 04-25-2025 MCH (RBC) [Entitic mass] 28.2 pg 27.0-32.0 [facility] Mean corpuscular hemoglobin concentration (MCHC) determinationOrdered By: Dorothy Boykin on 04-25-2025 MCHC (RBC) [Mass/Vol] 33.0 g/dL 32-36 [facility] Mean platelet volume determi nationOrdered By: Dorothy Boykni on 04-25-2025 Platelet mean volume (Bld) [Entitic vol] 9.7 fL 6.2-12.0 [facility] Monocyte percentageOrdered B y: Dorothy Boykin on 04-25-2025 Monocytes/100 WBC (Bld) 5.0 % 0-10 [facility] Neutrophil percentageOrdered By: Dorothy Boykin on 04-25-2025 Neutrophils/100 WBC (Bld) 67.8 % 47-70 [facility] Nucleated red blood cell per centageOrdered By: Dorothy Boykin on 04-25-2025 Nucleated RBC/100 WBC (Bld) [Ratio] 0 % 0-5 [facility] Platelet countOrdered By: Juan M Boykin on 04-25-2025 Platelets (Bld) [#/Vol] 407 10*3/uL 150-450 [facility] Potassium measurement (mass/ volume)Ordered By: Dorothy Boykin on 04-25-2025 Potassium (Unsp spec) [Mass/Vol] 4.3 mmol/L 3.3-5.1 [facility] Prothrombin Time w/INRon INR Coag (PPP) [Relative time] 1.0 {INR} Normal [facility] Comment on above: Performed By: #### M 600.5000, M100.637, L3600.5400 #### [facility] [address] [place], [address] PT Coag (PPP) [Time] 13.2 s Normal 11.7-14.9 [facility] Comment on above: Performed By: #### M 600.5000, M100.637, L3600.5400 #### [facility] [address] [place], [address] Prothrombin timeOrdered By: Dorothy Boykin on 04-25-2025 PT Coag (PPP) [Time] 13.2 s 11.7-14.9 [facility] RBC Auto (Bld) [#/Vol]Ordere d By: Dorothy Boykin on 04-25-2025 RBC (Bld) [#/Vol] 4.40 10*6/uL 4.2-5.4 [facility] Serum creatinine measurement (mass/volume)Ordered By: Dorothy Boykin on 04-25-2025 Creatinine [Mass/Vol] 0.57 mg/dL Low 0.70-1.20 [facility] Comment on above: Previous reported re sult: 0.55 mg/dLEdited by: GIANLUCA on 04/25/25:1340 AMENDED REPORT 04/25/25 1340 CREAT,SERUM previously reported as: 0.55 L mg/dL Serum globulin measurementOr dered By: Dorothy Boykin on 04-25-2025 Globulin (S) [Mass/Vol] 3.8 g/dL 2.2-4.2 [facility] Comment on above: Previous reported re sult: 3.5 g/dLEdited by: GIANLUCA on 04/25/25:1340 AMENDED REPORT 04/25/25 1340 GLOB previously reported as: 3.5 g/dL Serum glucose measurement (m ass/volume)Ordered By: Dorothy Boykin on 04-25-2025 Glucose [Mass/Vol] 287 mg/dL High 70-99 [facility] Comment on above: Previous reported re sult: 289 mg/dLEdited by: GIANLUCA on 04/25/25:1340 AMENDED REPORT 04/25/25 1340 GLU previously reported as: 289 H mg/dL Serum or plasma C reactive p rotein measurement (mass/volume)Ordered By: Dorothy Boykin on 04-25-2025 CRP [Mass/Vol] 3.62 mg/L High 0.0-3.0 [facility] Serum or plasma alanine zapata otransferase (ALT) measurementOrdered By: Dorothy Boykin on 04-25-2025 ALT [Catalytic activity/Vol] 23 U/L <35 [facility] Comment on above: Previous reported re sult: 21 U/LEdited by: AUTOINS on 04/25/25:1340 AMENDED REPORT 04/25/25 1340 ALT previously reported as: 21 U/L Serum or plasma albumin liana urement (mass/volume)Ordered By: Dorothy Boykin on 04-25-2025 Albumin [Mass/Vol] 3.6 g/dL 3.5-5.0 [facility] Comment on above: Previous reported re sult: 3.8 g/dLEdited by: AUTOINS on 04/25/25:1340 AMENDED REPORT 04/25/25 1340 ALB previously reported as: 3.8 g/dL Serum or plasma alkaline paula sphatase measurementOrdered By: Dorothy Boykin on 04-25-2025 ALP [Catalytic activity/Vol] 140 U/L High 35-104 [facility] Comment on above: Previous reported re sult: 138 U/LEdited by: KAYLAS on 04/25/25:1340 AMENDED REPORT 04/25/25 1340 ALK P previously reported as: 138 H U/L Serum or plasma calcium liana urement (mass/volume)Ordered By: Dorothy Boykin on 04-25-2025 Calcium [Mass/Vol] 9.2 mg/dL 7.6-11.0 [facility] Comment on above: Previous reported re sult: 9.3 mg/dLEdited by: GIANLUCA on 04/25/25:1340 AMENDED REPORT 04/25/25 1340 CA previously reported as: 9.3 mg/dL Serum or plasma cortisol sagrario surement (mass/volume)Ordered By: Dorothy Boykin on 04-25-2025 Cortisol [Mass/Vol] 11.40 ug/dL 6.02-18.40 [facility] Serum or plasma ferritin sagrario surement (mass/volume)Ordered By: Dorothy Boykin on 04-25-2025 Ferritin [Mass/Vol] 93 ng/mL 22-378 [facility] Serum or plasma urea nitroge n measurement (mass/volume)Ordered By: Dorothy Boykin on 04-25-2025 Urea nitrogen [Mass/Vol] 10 mg/dL 4-19 [facility] Sodium levelOrdered By: Je Boykin on 04-25-2025 Sodium [Moles/Vol] 139 mmol/L 133-145 [facility] Comment on above: Previous reported re sult: 138 mmol/LEdited by: AUTOINS on 04/25/25:1340 AMENDED REPORT 04/25/25 1340 NA previously reported as: 138 mmol/L Total proteinOrdered By: Will Boykin on 04-25-2025 Protein [Mass/Vol] 7.4 g/dL 5.9-8.4 [facility] Comment on above: Previous reported re sult: 7.3 g/dLEdited by: AUTOINS on 04/25/25:1340 AMENDED REPORT 04/25/25 1340 T PROT previously reported as: 7.3 g/dL White blood cell (WBC) count Ordered By: Dorothy Boykin on 04-25-2025 WBC (Bld) [#/Vol] 9.1 10*3/uL 4.4-11.0 [facility] Abdomen/Pelvis WITH Contrast on 04-15-2025 Abdomen/Pelvis WITH Contrast [facility] Imaging Services [address] [place] [address] Abdomen/Pelvis WITH Contrast MR#: [id number] Acct: [id number] Name: SANTIAGO JACOBSEN Rep #: [id number] : 2000 F 25 From: Truong Hinson MD PCP: Dr. Skylar Fong MD Status: REG CLI Study: Abdomen/Pelvis WITH Contrast Date of Exam: Exam# [id number] Ordering Dr: Dorothy Boykin MASTER COOK-C PROCEDURE: ABDOMEN/PELVIS WITH CONTRAST 04/15/2025 REASON FOR EXAM: HEPATOMEGALY ON US, 24.7 CM TECHNIQUE: ABDOMEN/PELVIS WITH CONTRAST Coronal and Sagittal reconstruction series were provided. CONTRAST: Isovue 300 VOLUME: 98 mL One or more dose reduction techniques were used (e.g., Automated exposure control, adjustment of the mA and/or kV according to patient size, use of iterative reconstruction technique. RADIATION DOSE SUMMARY: CTDlvol: 28 mGy DLP: 1136 mGycm COMPARISON: Ultrasound 03/21/2025 FINDINGS: Series 2, image 1, partially imaged left lower lobe noncalcified nodule measuring at least [address] recommended. Heart size is within normal limits. Hepatomegaly and diffuse hepatic steatosis. Normal gallbladder, pancreas, spleen, adrenal glands and kidneys. No hydronephrosis or ureteral stone. Normal bladder. Normal uterus and ovaries. No retroperitoneal or pelvic adenopathy. No free air. Nondistended bowel. Normal appendix. No acute large bowel findings. No acute abdominal wall findings. CT/Abdomen/Pelvis WITH Contrast IMPRESSION: Medical liver disease. Correlate for possible hepatitis. Left lower lobe lung nodule, recommend chest CT Reading Location: [place] [address] CC: RIO Boykin; Dr. Skylar Fong MD [employer] Operator: Signed Normal [facility] CREATININE FINGERSTICKon CREATININE WB < 1.0 Normal 0.55-1.02 [facility] Comment on above: Performed By: #### L 3100.1950, L502.000 #### [facility] [address] [place], [address] EGFR WB > 60.0000 Normal >60 [facility] Comment on above: Performed By: #### L 3100.1950, L502.000 #### [facility] [address] [place], [address] EGFROrdered By: Dorothy berger on 04-15-2025 GFR/1.73 sq M.predicted among non-blacks MDRD (S/P/Bld) [Vol rate/Area] mL/min/{1.73_m2} >60 [facility] Gastric Emptying Study - 4 H Rebel 04-11-2025 Gastric Emptying Study - 4 HR [facility] Imaging Services [address] [place], [place] [address] Gastric Emptying Study - 4 HR MR#: [id number] Acct: [id number] Name: SANTIAGO JACOBSEN Rep #: [id number] : 2000 F 25 From: Claude hood MD PCP: Dr. Skylar Fong MD Status: REG CLI Study: Gastric Emptying Study - 4 HR Date of Exam: Exam# [id number] Ordering Dr: Dorothy Boykin PROCEDURE: GASTRIC EMPTYING STUDY - 4 HR 04/11/2025 REASON FOR EXAM: N/V/ABD PAIN TECHNIQUE: The patient ingested a standard meal of oatmeal and radiopharmaceutical and water. Newly-There was no vomiting postprandially. Anterior and posterior planar images of the upper abdomen were obtained for 1 minute immediately following the meal at 1h, 2h and 4h if more than 10% of the activity persisted within the stomach. Regions of interest were drawn, and a geometric mean was used to calculate a [id number]-meihv. RADIOPHARMACEUTICAL: Sulfur colloid DOSE 1.1mCi FINDINGS: Percent activity remaining in stomach: 1 hour 63 % (normal 37-90%) 2 hours: 47 % (normal 30-60%) 4 hours: 16 % (normal 0-10%) NM/Gastric Emptying Study - 4 HR IMPRESSION: Delayed gastric emptying. Reading Location: [id number] CC: RIO Boykin; Dr. Skylar Fong MD [employer] Operator: Signed Normal [facility] ED PROV NOTEon 03-25-2025 ED PROV NOTE HNO ID: [id number] Author: GLENYS GARCIA MD Service: Emergency Medicine Author Type: Resident Type: ED Provider Notes Filed: 03/28/2025 04:24 Note Text: -------- Attestation signed by Glenys Garcia MD at [...] with the resident. Signature: Glenys Garcia MD -------- ED Provider Note Patient Name: Santiago Jacobsen [...] pain around the tooth. She went to [facility] who prescribed her amoxicillin. She finished amoxicillin a few days ago. Last night she woke up with severe pain. She has not had any fevers. She denies any chest pain, shortness of breath, chills, cough. PAST MEDICAL HISTORY Diagnosis Date DKA (diabetic ketoacidosis) ([facility]) 04/2022 Gastroparesis Hypertension Pancreatic insufficiency (HCC) T1DM (type 1 diabetes mellitus) ([facility]) PAST SURGICAL HISTORY Procedure Laterality Date TONSILLECTOMY AND ADENOIDECTOMY FAMILY HISTORY Problem Relation Age of Onset [...] heat and ice. She was given a not (more content not included)... Normal [facility] Abdomen Limitedon 03-21-2025 Abdomen Limited [facility] Imaging Services [address] [place] [address] Abdomen Limited MR#: [id number] Acct: [id number] Name: SANTIAGO JACOBSEN Rep #: [id number] : 2000 F 25 From: Valdo Cuello PCP: Dr. Skylar Fong MD Status: REG CLI Study: Abdomen Limited Date of Exam: 03/21/25 Exam# [id number] Ordering Dr: Dorothy Boykin PROCEDURE: ABDOMEN LIMITED 03/21/2025 REASON FOR EXAM: N/V/ABD PAIN TECHNIQUE: Complete abdominal ultrasound warner-scale images with color doppler. PATIENT PREPARATION: Per protocol COMPARISON: None FINDINGS: Liver: Increased in size measuring up to 24.7 cm. Increased and heterogeneous echotexture. Gallbladder: Sludge noted. No pericholecystic fluid. Negative Marvin's sign. Gallbladder wall is unremarkable. Common bile duct: Measures 5.6 mm. No intrahepatic biliary dilatation.. Pancreas: Increased echogenicity Kidneys: The right kidney measures 12.4 cm. No hydronephrosis. US/Abdomen Limited IMPRESSION: Hepatomegaly and hepatic steatosis. No acute cholecystitis. Nonspecific increased echogenicity of the pancreas. Reading Location: [facility] CC: RIO Boykin; Dr. Skylar Fong MD [employer] System Operator: Signed Normal [facility] Gastroenterology Visit Repor ton 03-07-2025 Gastroenterology Visit Report [facility] [address] [place] [address] OFFICE VISIT Date of Service: 03/07/25 MR#: [id number] Acct: [id number] Name: SANTIAGO JACOBSEN Rep #: [id number] : 2000 Provider: RIO mcgee Age/Sex: 25/F Location: [facility] Status: Signed Intake Vital Signs 07/30/24 17:55 Height 5 ft 2 in Intake Visit Reasons: DIARRHEA VOMITING ABDOMINAL PAIN Allergies No Known Allergies Allergy (Verified 03/07/25 08:08) Medications ???Medication ???Instructions ???Recorded ???Confirmed ???Type insulin NPH isoph U-100 human 100 10 unit subcut BREAKFAST Check 03/09/22 History unit/mL subcutaneous suspension with primary doctor (Novolin N NPH U-100 Insulin isophane) insulin NPH isoph U-100 human 100 30 unit subcut QHS Check with 03/07/25 History unit/mL subcutaneous suspension primary doctor (Novolin N NPH U-100 Insulin isophane) insulin regular human 100 unit/mL 10 unit subcut TID Check with 03/07/25 History injection solution (Novolin R primary doctor Regular U-100 Insulin) insulin regular human 100 unit/mL See Protocol subcut ACHS Check 03/09/22 History injection solution (Novolin R with primary doctor Regular U-100 Insulin) dicyclomine 10 mg capsule 10 mg PO TID PRN abdominal pain 03/07/25 Rx #60 caps pantoprazole 40 mg tablet,delayed 40 mg PO QDAY 03/07/25 03/07/25 H [facility] Medical History Hypertension Anxiety and depression Hypothyroidism Dyslipidemia (high LDL; low HDL) Surgical History Hx of tympanostomy tubes History of tonsillectomy Family History Other CVA (cerebral vascular accident) Diabetes Heart disease Hypertension Social History Smoking Status: Never smoker HPI HPI Details: SANTIAGO JACOBSEN, is a 25 F who presents to the office today for establishment with [facility] regarding diarrhea with urgency and significant nausea with abdominal pain. She has a history of Type I DM, last GET was a 4hr test showing 92.5% activity at 0.5 hr, 78% at 1hr, 56% at 2hr, 32% at 3hr, and 32% at 4hr with the impression of moderate delayed gastric emptying performed at [facility]. She states that she was told by her previous GI doctor her GET was normal and that he told her to just take Imodium for the diarrhea. She reports that she is never able to finish a meal completely, will nearly get half way through a meal before having to farrell for the restroom. She experiences daily abdominal pain with nausea, she takes pantoprazole 40mg daily. Last EGD done 03.29.24: gastritis with retained food. She reports 200 lb weight loss since 2017, mostly unintentional, with current weight of 167 lb. She denies difficulty chewing and swallowing, heartburn, reflux, constipation, hematochezia, and melena. She denies change in water source, travel out of the country, or exposure to known ill persons. She states that she tried pancreatic enzyme replacement in the past but feels that the dosing was less than required so she continued to have diarrhea. ROS Const Constitutional: Positive for weight change; No fatigue or fever(s) ENT ENT: No difficulty swallowing Gastro GI: Positive for abdominal pain; No belching, bloating, change in bowel habits, change in stool character, coffee ground emesis, constipation, cramping, diarrhea, heartburn, difficulty swallowing, feeling full early, excessive flatus, incontinent of stools, Vomiting blood/hematemesis, Blood in stool, loose stools, Black,tarry stools, nausea/dyspepsia, pain with swallowing, vomiting or other Musc Musculoskeletal: No joint pain Skin Skin: No yellowing of the eye or itchy eyes Psych Psychiatric: No anxiety and No depression Endo Endocrine: Positive for weight change; No fatigue Aller/Imm Allergy/Immunologic: No itchy eyes Evin/Lymp Hematologic/Lymphatic: No easy bleeding or easy bruising Exam Const General: cooperative, comfortable, no acute distress and well groomed Nutritional Appearance: average body habitus Orientation: alert and oriented x3 HENMT Head: normal to inspection Ears: hearing grossly normal bilaterally Eyes General: appearance normal, both eyes and all related structures Sclera: sclerae normal Neck Neck: normal visual inspection and full ROM Chest Chest palpation inspection: normal inspection of the chest Resp Effort Inspection: normal respiratory effort, able to speak in complete sentences and symmetric chest movement GI Inspection: normal to inspection Skin General: no rashes or lesion (more content not included)... Normal [facility] BASIC METABOLIC PANELon 05- Anion gap [Moles/Vol] 14 mmol/L High 3-13 [facility] Comment on above: Performed By: #### L [id number], LAB15 #### Musical String Maker: JOSEFINA HORNER ([id number]) [facility] ([facility]) [address] [place] [address] Calcium [Mass/Vol] 9.1 mg/dL Normal 8.4-10.2 [facility] Comment on above: Performed By: #### L [id number], LAB15 #### Musical String Maker: JOSEFINA HORNER ([id number]) [facility] [address] [place] [address] Chloride [Moles/Vol] 106 mmol/L Normal 98-107 [facility] Comment on above: Performed By: #### L [id number], LAB15 #### Musical String Maker: JOSEFINA HORNER ([id number]) [facility] [address] [place] [address] CO2 [Moles/Vol] 16 mmol/L Low 22-29 [facility] Comment on above: Performed By: #### L [id number], LAB15 #### Musical String Maker: JOSEFINA HORNER ([id number]) [facility] [address] [place] [address] Creatinine [Mass/Vol] 0.87 mg/dL Normal 0.57-1.11 [facility] Comment on above: Performed By: #### L AB143, LAB15 #### Musical String Maker: JOSEFINA HORNER ([id number]) [facility] [address] [place] [address] GLOMERULAR FILTRATION RATE ML/MIN/1.73 SQ M.PREDICTED >90.0 Normal >60.0 [facility] Comment on above: Result Comment: Calc ulation based on the Chronic Kidney Disease Epidemiology Collaboration (CKD-EPI) equation refit without adjustment for race Performed By: #### L AB143, LAB15 #### Musical String Maker: JOSEFINA HORNER ([id number]) [facility] [address] [place] [address] [place] Glucose [Mass/Vol] 349 mg/dL High 74-100 [facility] Comment on above: Performed By: #### L [id number], LAB15 #### Musical String Maker: JOSEFINA HORNER ([id number]) [facility]) [address] [place] [address] Potassium [Moles/Vol] 3.6 mmol/L Normal 3.5-5.1 [facility] Comment on above: Result Comment: [facility] potassium values may be up to 0.5 mmol/L lower than serum values. Performed By: #### L AB143, LAB15 #### Musical String Maker: JOSEFINA HORNER ([id number]) [facility] ([facility]) [address] [place] [address] Sodium [Moles/Vol] 136 mmol/L Normal 136-145 [facility] Comment on above: Performed By: #### L AB143, LAB15 #### Musical String Maker: JOSEFINA HORNER ([id number]) [facility] ([facility]) [address] [place] [address] Urea nitrogen [Mass/Vol] 12 mg/dL Normal 8-21 [facility] Comment on above: Performed By: #### L [id number], LAB15 #### Musical String Maker: JOSEFINA HORNER ([id number]) [facility] ([facility]) [address] [place] [address] Basic metabolic 1998 panelon 03-02-2025 Anion gap [Moles/Vol] 14 mmol/L High 3 - 13 mmol/L [facility] Calcium [Mass/Vol] 9.1 mg/dL 8.4 - 10. 2 mg/dL [facility] Chloride [Moles/Vol] 106 mmol/L 98 - 10 7 mmol/L [facility] CO2 [Moles/Vol] 16 mmol/L Low 22 - 29 mmol/L [facility] Creatinine [Mass/Vol] 0.87 mg/dL 0.57 - 1.11 mg/dL [facility] GFR/1.73 sq M.predicted (S/P/Bld) [Vol rate/Area] - PINF [facility] Comment on above: Calculation based on the Chronic Kidney Disease Epidemiology Collaboration (CKD-EPI) equation refit without adjustment for race Glucose [Mass/Vol] 349 mg/dL High 74 - 100 mg/dL [facility] Interpretation and review of laboratory results Abnormal [facility] Potassium [Moles/Vol] 3.6 mmol/L 3.5 - 5.1 mmol/L [facility] Comment on above: Plasma potassium bonnie ues may be up to 0.5 mmol/L lower than serum values. Sodium [Moles/Vol] 136 mmol/L 136 - 145 mmol/L [facility] Urea nitrogen [Mass/Vol] 12 mg/dL 8 - 21 mg/dL [facility] CBC W Auto Differential pane l (Bld)on 03-02-2025 Basophils (Bld) [#/Vol] 0.1 10*3/uL 0.0 - 0.2 10*3/uL [facility] Basophils/100 WBC (Bld) 0.9 % 0.0 - 2.0 % [facility] Eosinophils (Bld) [#/Vol] 0.2 10*3/uL 0.0 - 0.5 10*3/uL [facility] Eosinophils/100 WBC (Bld) 1.5 % 0.0 - 6.0 % [facility] Erythrocyte distribution width (RBC) [Ratio] 12 % 11.5 - 15.0 % [facility] Hematocrit (Bld) [Volume fraction] 38.7 % 35.0 - 47.0 % [facility] Hemoglobin (Bld) [Mass/Vol] 13.2 g/dL 11.7 - 16.0 g/dL [facility] Immature granulocytes (Bld) [#/Vol] 0 10*3/uL NINF - 0.1 10*3/uL [facility] Immature granulocytes/100 WBC (Bld) 0.4 % 0.0 - 2.0 % [facility] Interpretation and review of laboratory results Normal [facility] Lymphocytes (Bld) [#/Vol] 2.8 10*3/uL 1.0 - 4.3 10*3/uL [facility] Lymphocytes/100 WBC (Bld) 27.5 % 15.0 - 45.0 % [facility] MCH (RBC) [Entitic mass] 28.8 pg 26.0 - 34.0 pg [facility] MCHC (RBC) [Mass/Vol] 34.1 % 30.5 - 36.0 % [facility] MCV (RBC) [Entitic vol] 84.3 fL 77.0 - 99.0 fL [facility] Monocytes (Bld) [#/Vol] 0.7 10*3/uL 0.0 - 0.9 10*3/uL [facility] Monocytes/100 WBC (Bld) 6.7 % 5.0 - 13.0 % [facility] Neutrophils (Bld) [#/Vol] 6.4 10*3/uL 1.8 - 7.5 10*3/uL [facility] Neutrophils/100 WBC (Bld) 63 % 38.0 - 82.0 % [facility] Nucleated RBC/100 WBC (Bld) [Ratio] 0 % [facility] Platelet mean volume (Bld) [Entitic vol] 9.5 fL 9.0 - 12.7 fL [facility] Platelets (Bld) [#/Vol] 395 10*3/uL 140 - 440 10*3/uL [facility] RBC (Bld) [#/Vol] 4.59 10*6/uL 3.80 - 5.2 0 10*6/uL [facility] WBC (Bld) [#/Vol] 10.2 10*3/uL 3.6 - 10.7 10*3/uL [facility] Health CBC WITH AUTO DIFFERENTIALon 03-02-2025 Basophils (Bld) [#/Vol] 0.1 10*3/uL Normal 0.0-0.2 [facility] Comment on above: Performed By: #### L [id number] #### Musical String Maker: JOSEFINA HORNER ([id number]) [facility] ([facility]) [address] [place] [address] Basophils/100 WBC (Bld) 0.9 % Normal 0.0-2.0 [facility] Comment on above: Performed By: #### L [id number] #### Musical String Maker: JOSEFINA HORNER ([id number]) [facility] ([facility]) [address] [place] [address] Eosinophils (Bld) [#/Vol] 0.2 10*3/uL Normal 0.0-0.5 [facility] Comment on above: Performed By: #### L [id number] #### Musical String Maker: JOSEFINA HORNER ([id number]) [facility] ([facility]) [address] [place] [address] Eosinophils/100 WBC (Bld) 1.5 % Normal 0.0-6.0 [facility] Comment on above: Performed By: #### L [id number] #### Musical String Maker: JOSEFINA HORNER ([id number]) [facility]) [address] [place] [address] Erythrocyte distribution width (RBC) [Ratio] 12.0 % Normal 11.5-15.0 [facility] [facility] Comment on above: Performed By: #### L [id number] #### Musical String Maker: JOSEFINA HORNER ([id number]) [facility]) [address] [place] [address] Hematocrit (Bld) [Volume fraction] 38.7 % Normal 35.0-47.0 [facility] Comment on above: Performed By: #### L [id number] #### Musical String Maker: JOSEFINA HORNER ([phone]) [facility]) [address] [place] [address] Hemoglobin (Bld) [Mass/Vol] 13.2 g/dL Normal 11.7-16.0 [facility] Comment on above: Performed By: #### L [id number] #### Musical String Maker: JOSEFINA HORNER ([phone]) [facility]) [address] [place] [address] IMMATURE GRANS % 0.4 % Normal 0.0-2.0 [facility] Comment on above: Performed By: #### L [id number] #### Musical String Maker: JOSEFINA HORNER ([phone]) [facility]) [address] [place] [address] IMMATURE GRANS ABSOLUTE 0.0 10*3/uL Normal <0.1 [facility] Comment on above: Performed By: #### L [id number] #### Musical String Maker: JOSEFINA HORNER ([id number]) [facility]) [address] [place] [address] [place] Lymphocytes (Bld) [#/Vol] 2.8 10*3/uL Normal 1.0-4.3 [facility] Comment on above: Performed By: #### L [id number] #### Musical String Maker: JOSEFINA HORNER ([id number]) [facility] ([facility]) [address] [place] [address] Lymphocytes/100 WBC (Bld) 27.5 % Normal 15.0-45.0 [facility] Comment on above: Performed By: #### L [id number] #### Musical String Maker: JOSEFINA HORNER ([phone]) [facility] ([facility]) [address] [place] [address] MCH (RBC) [Entitic mass] 28.8 pg Normal 26.0-34.0 [facility] Comment on above: Performed By: #### L [id number] #### Musical String Maker: JOSEFINA HORNER ([phone]) [facility]) [address] [place] [address] MCHC 34.1 % Normal 30.5-36.0 [facility] Comment on above: Performed By: #### L [id number] #### Musical String Maker: JOSEFINA HORNER ([phone]) [facility]) [address] [place] [address] MCV (RBC) [Entitic vol] 84.3 fL Normal 77.0-99.0 [facility] Comment on above: Performed By: #### L [id number] #### Musical String Maker: JOSEFINA HORNER ([phone]) [facility]) [address] [place] [address] Monocytes (Bld) [#/Vol] 0.7 10*3/uL Normal 0.0-0.9 [facility] Comment on above: Performed By: #### L [id number] #### Musical String Maker: JOSEFINA HORNER ([id number]) [facility]) [address] [place] [address] Monocytes/100 WBC (Bld) 6.7 % Normal 5.0-13.0 [facility] Comment on above: Performed By: #### L [id number] #### Musical String Maker: JOSEFINA HORNER ([id number]) [facility] ([facility]) [address] [place] [address] NEUTROPHILS ABSOLUTE 6.4 10*3/uL Normal 1.8-7.5 [facility] Comment on above: Performed By: #### L [id number] #### Musical String Maker: JOSEFINA HORNER ([id number]) [facility] ([facility]) [address] [place] [address] Neutrophils/100 WBC (Bld) 63.0 % Normal 38.0-82.0 [facility] Comment on above: Performed By: #### L [id number] #### Musical String Maker: JOSEFINA HORNER ([id number]) [facility]) [address] [place] [address] NRBC 0.0 /100 WBCs Normal 0.0-2.0 [facility] Comment on above: Performed By: #### L [id number] #### Musical String Maker: JOSEFINA HORNER ([id number]) [facility] ([facility]) [address] [place] [address] Platelet mean volume (Bld) [Entitic vol] 9.5 fL Normal 9.0-12.7 [facility] Comment on above: Performed By: #### L [id number] #### Musical String Maker: JOSEFINA HORNER ([id number]) [facility] ([facility]) [address] [place] [address] [place] Platelets (Bld) [#/Vol] 395 10*3/uL Normal 140-440 [facility] Comment on above: Performed By: #### L [id number] #### Musical String Maker: JOSEFINA HORNER ([phone]) [facility] ([facility]) [address] [place] [address] RBC (Bld) [#/Vol] 4.59 10*6/uL Normal 3.80-5.20 [facility] Comment on above: Performed By: #### L [id number] #### Musical String Maker: JOSEFINA HORNER ([phone]) [facility] ([facility]) [address] [place] [address] WBC (Bld) [#/Vol] 10.2 10*3/uL Normal 3.6-10.7 [facility] Comment on above: Performed By: #### L [id number] #### Musical String Maker: JOSEFINA HORNER ([phone]) [facility] ([facility]) [address] [place] [address] CT MAXILLOFACIAL W IV CONTRA STon 03-02-2025 CT MAXILLOFACIAL W IV CONTRAST Patient Name: SANTIAGO JACOBSEN : 2000 Exam Date/Time: 03/02/2025 21:35 Procedure: CT MAXILLOFACIAL [...] believes she may have broken a tooth Normal [facility] CT Maxillofacial region W co ntrast [place] 03-02-2025 1. Dental disease without soft tissue abscess apparent. Report Dictated on Electronically Signed By: Andrew Clarke MD Electronically Signed Date/Time: 03/02/2025 9:47 PM EDT [facility] Patient Name: SANTIAGO JACOBSEN : 2000 Exam Date/Time: 03/02/2025 21:35 Procedure: CT MAXILLOFACIAL [...] tissue swelling. Broken RIGHT lower third molar. [facility] Andrew Clarke MD - 03/02/2025 Patient Name: SANTIAGO JACOBSEN : 2000 Exam Date/Time: 03/02/2025 21:35 Procedure: CT MAXILLOFACIAL [...] Electronically Signed Date/Time: 03/02/2025 9:47 PM EDT [facility] Radiology Study observation (narrative) [facility] CT Maxillofacial region W co ntrast IVOrdered By: Andrew Clarke on 03-02-2025 [facility] [employer] Work Phone: ED Nursing Noteon 03-02-2025 ED Nursing Note Pt still refusing fl uids despite HR, provider notified and pt being Dc'd. Normal [facility] ED Nursing Note Dental pain and swelling Normal [facility] ED Provider Noteon ED Provider Note EMERGENCY DEPARTMENT ENCOUNTER Pt Name: Santiago Jacobsen Birthdate 2000 Date [...] to 3 days for the first 6 we (more content not included)... Normal [facility] HCG QUANTITATIVE BLOODon HCG QUANTITATIVE <2.5 Normal Females <5 [facility] Comment on above: Result Comment: ELIJAH Cid COMMENTS: Values in should double every 2 to [...] tumors or gestational trophoblastic disease. Performed By: #### L [id number], LAB15 #### Musical String Maker: JOSEFINA HORNER ([id number]) [facility] [address] [place] [address] LACTIC ACID WITH REFLEXon Lactate [Moles/Vol] 1.5 mmol/L Normal 0.5-2.2 [facility] Comment on above: Performed By: #### L [id number] #### Musical String Maker: JOSEFINA HORNER ([phone]) [facility] ([facility]) [address] [place] [address] Laboratory - Chemistry and C hemistry - challengeon 03-02-2025 HCG.beta subunit Qn Females <5 mIU/mL [facility] Lactate [Moles/Vol] 1.5 mmol/L 0.5 - 2. 2 mmol/L [facility] No Panel Informationon 03-02 Values in should double every 2 to [...] or monitor tumors or gestational trophoblastic disease. [facility] Interpretation and review of laboratory results Normal [facility] Prealbumin [id number] 5 Prealbumin [Mass/Vol] 24 mg/dL Normal 14-35 [facility] Comment on above: Result Comment: Perf ormed at: - [facility] [address] [id number] [employer] Marker Designer: Lazaro Caputo PhD, Phone: [phone] Performed By: #### M 600.5000, M100.637, L3600.5400 #### [facility] [address] [place], [address] Absolute lymphocyte countOrd ered By: Skylar Fong on 12-20-2024 Lymphocytes Auto (Unsp spec) [#/Vol] 2.66 10*3/uL 0.83-4.51 [facility] Absolute neutrophil countOrd ered By: Skylar Fong on 12-20-2024 Neutrophils (Bld) [#/Vol] 6.8 10*3/uL 2.0-7.7 [facility] Automated lymphocyte count a s percentage of total leukocytesOrdered By: Skylar Fong on 12-20-2024 Lymphocytes/100 WBC Auto (Unsp spec) 25.9 % 19-41 [facility] BUN/creatinine ratioOrdered By: Skylar Fong on 12-20-2024 Urea nitrogen/Creatinine [Mass ratio] 16.3 mg/mg 10-20 [facility] Basophil percentageOrdered B y: Skylar Fong on 12-20-2024 Basophils/100 WBC (Bld) 1.6 % High 0-1 [facility] Bilirubin, totalOrdered By: Skylar Fong on 12-20-2024 Bilirubin [Mass/Vol] 0.33 mg/dL 0.00-1.30 [facility] CBC W/Diff, Automatedon Absolute Lymph 2.66 X10 3/uL Normal 0.83-4.51 [facility] Comment on above: Order Comment: Order Date: 12/20/24Order Info: 0184-1 - CBCD Performed By: #### M 600.5000, M100.637, L3600.5400 #### [facility] [address] [place], [address] Absolute Neut 6.8 X10 3/uL Normal 2.0-7.7 [facility] Comment on above: Order Comment: Order Date: 12/20/24Order Info: 0184-1 - CBCD Performed By: #### M 600.5000, M100.637, L3600.5400 #### [facility] [address] [place], [address] Basophils/100 WBC (Bld) 1.6 % High 0-1 [facility] Comment on above: Order Comment: Order Date: 12/20/24Order Info: 0184-1 - CBCD Performed By: #### M 600.5000, M100.637, L3600.5400 #### [facility] [address] [place], [address] Eosinophils/100 WBC (Bld) 1.6 % Normal 0-5 [facility] Comment on above: Order Comment: Order Date: 12/20/24Order Info: 0184-1 - CBCD Performed By: #### M 600.5000, M100.637, L3600.5400 #### [facility] [address] [place], [address] Erythrocyte distribution width (RBC) [Ratio] 11.7 % Normal 11.6-14.6 [facility] Comment on above: Order Comment: Order Date: 12/20/24Order Info: 0184-1 - CBCD Performed By: #### M 600.5000, M100.637, L3600.5400 #### [facility] [address] [place], [address] Hematocrit (Bld) [Volume fraction] 40.7 % Normal 37-47 [facility] Comment on above: Order Comment: Order Date: 12/20/24Order Info: 0184-1 - CBCD Performed By: #### M 600.5000, M100.637, L3600.5400 #### [facility] [address] [place], [address] Hemoglobin (Bld) [Mass/Vol] 13.6 g/dL Normal 12.0-15.0 [facility] Comment on above: Order Comment: Order Date: 12/20/24Order Info: 0184-1 - CBCD Performed By: #### M 600.5000, M100.637, L3600.5400 #### [facility] [address] [place], [address] IG% 0.600 Normal 0.0-0.9 [facility] Comment on above: Order Comment: Order Date: 12/20/24Order Info: 0184-1 - CBCD Result Comment: IG% - Immature Granulocytes (promyelocytes, myelocytes and metamyelocytes) > 1% indicates that a LEFT SHIFT is Present. Performed By: #### M 600.5000, M100.637, L3600.5400 #### [facility] [address] [place], [address] Lymphocytes/100 WBC (Bld) 25.9 % Normal 19-41 [facility] Comment on above: Order Comment: Order Date: 12/20/24Order Info: 0184-1 - CBCD Performed By: #### M 600.5000, M100.637, L3600.5400 #### [facility] [address] [place], [address] MCH (RBC) [Entitic mass] 29.8 pg Normal 27.0-32.0 [facility] Comment on above: Order Comment: Order Date: 12/20/24Order Info: 0184-1 - CBCD Performed By: #### M 600.5000, M100.637, L3600.5400 #### [facility] [address] [place], [address] MCHC (RBC) [Mass/Vol] 33.4 g/dL Normal 32-36 [facility] Comment on above: Order Comment: Order Date: 12/20/24Order Info: 0184-1 - CBCD Performed By: #### M 600.5000, M100.637, L3600.5400 #### [facility] [address] [place], [address] MCV (RBC) [Entitic vol] 89.1 fL Normal 81-99 [facility] Comment on above: Order Comment: Order Date: 12/20/24Order Info: 0184-1 - CBCD Performed By: #### M 600.5000, M100.637, L3600.5400 #### [facility] [address] [place], [address] Monocytes/100 WBC (Bld) 4.2 % Normal 0-10 [facility] Comment on above: Order Comment: Order Date: 12/20/24Order Info: 0184-1 - CBCD Performed By: #### M 600.5000, M100.637, L3600.5400 #### [facility] [address] [place], [address] Neutrophils/100 WBC (Bld) 66.1 % Normal 47-70 [facility] Comment on above: Order Comment: Order Date: 12/20/24Order Info: 0184-1 - CBCD Performed By: #### M 600.5000, M100.637, L3600.5400 #### [facility] [address] [place], [address] Nucleated RBC (Bld) [#/Vol] 0 10*3/uL Normal 0-5 [facility] Comment on above: Order Comment: Order Date: 12/20/24Order Info: 0184-1 - CBCD Performed By: #### M 600.5000, M100.637, L3600.5400 #### [facility] [address] [place], [address] Platelet mean volume (Bld) [Entitic vol] 9.8 fL Normal 6.2-12.0 [facility] Comment on above: Order Comment: Order Date: 12/20/24Order Info: 0184-1 - CBCD Performed By: #### M 600.5000, M100.637, L3600.5400 #### [facility] [address] [place], [address] Platelets (Bld) [#/Vol] 442 10*3/uL Normal 150-450 [facility] Comment on above: Order Comment: Order Date: 12/20/24Order Info: 0184-1 - CBCD Performed By: #### M 600.5000, M100.637, L3600.5400 #### [facility] [address] [place], [address] RBC (Bld) [#/Vol] 4.57 10*6/uL Normal 4.2-5.4 [facility] Comment on above: Order Comment: Order Date: 12/20/24Order Info: 0184-1 - CBCD Performed By: #### M 600.5000, M100.637, L3600.5400 #### [facility] [address] [place], [address] RDW SD 37.4 fl Normal 35.1-43.9 [facility] Comment on above: Order Comment: Order Date: 12/20/24Order Info: 0184-1 - CBCD Performed By: #### M 600.5000, M100.637, L3600.5400 #### [facility] [address] [place], [address] WBC (Bld) [#/Vol] 10.3 10*3/uL Normal 4.4-11.0 [facility] Comment on above: Order Comment: Order Date: 12/20/24Order Info: 0184-1 - CBCD Performed By: #### M 600.5000, M100.637, L3600.5400 #### [facility] [address] [place], [address] Carbon dioxide measurementOr dered By: Skylar Fong on 12-20-2024 CO2 [Moles/Vol] 17.7 mmol/L Low 22.0-29.0 [facility] Chloride measurementOrdered By: Skylar Fong on 12-20-2024 Chloride [Moles/Vol] 106 mmol/L 96-108 [facility] Comprehensive Metabolic Prof ilon 12-20-2024 Albumin [Mass/Vol] 3.9 g/dL Normal 3.5-5.0 [facility] Comment on above: Order Comment: Order Date: 12/20/24Order Info: 0786-1 - CMPOrder Info: [id number] - MG Performed By: #### M 600.5000, M100.637, L3600.5400 #### [facility] [address] [place], [address] Albumin/Globulin [Mass ratio] 1.0 {ratio} Normal 0.9-2.4 [facility] Comment on above: Order Comment: Order Date: 12/20/24Order Info: 0786-1 - CMPOrder Info: [id number] - MG Performed By: #### M 600.5000, M100.637, L3600.5400 #### [facility] [address] [place], [address] ALK PHOS 131 U/L High 35-104 [facility] Comment on above: Order Comment: Order Date: 12/20/24Order Info: 0786-1 - CMPOrder Info: [id number] - MG Performed By: #### M 600.5000, M100.637, L3600.5400 #### [facility] [address] [place], [address] ALT [Catalytic activity/Vol] 42 U/L High <=34 [facility] Comment on above: Order Comment: Order Date: 12/20/24Order Info: 0786-1 - CMPOrder Info: [id number] - MG Performed By: #### M 600.5000, M100.637, L3600.5400 #### [facility] [address] [place], [address] Anion gap [Moles/Vol] 16 mmol/L High 5-15 [facility] Comment on above: Order Comment: Order Date: 12/20/24Order Info: 0786-1 - CMPOrder Info: [id number] - MG Performed By: #### M 600.5000, M100.637, L3600.5400 #### [facility] [address] [place], [address] AST [Catalytic activity/Vol] 37 U/L High <=31 [facility] Comment on above: Order Comment: Order Date: 12/20/24Order Info: 0786-1 - CMPOrder Info: [id number] - MG Performed By: #### M 600.5000, M100.637, L3600.5400 #### [facility] [address] [place], [address] Bilirubin [Mass/Vol] 0.33 mg/dL Normal 0.00-1.30 [facility] Comment on above: Order Comment: Order Date: 12/20/24Order Info: 0786-1 - CMPOrder Info: [id number] - MG Performed By: #### M 600.5000, M100.637, L3600.5400 #### [facility] [address] [place], [address] BUN/CRE 16.3 RATIO Normal 10-20 [facility] Comment on above: Order Comment: Order Date: 12/20/24Order Info: 0786-1 - CMPOrder Info: [id number] - MG Performed By: #### M 600.5000, M100.637, L3600.5400 #### [facility] [address] [place], [address] Calcium [Mass/Vol] 9.3 mg/dL Normal 7.6-11.0 [facility] Comment on above: Order Comment: Order Date: 12/20/24Order Info: 0786-1 - CMPOrder Info: [id number] - MG Performed By: #### M 600.5000, M100.637, L3600.5400 #### [facility] [address] [place], [address] Chloride [Moles/Vol] 106 mmol/L Normal 96-108 [facility] Comment on above: Order Comment: Order Date: 12/20/24Order Info: 0786-1 - CMPOrder Info: [id number] - MG Performed By: #### M 600.5000, M100.637, L3600.5400 #### [facility] [address] [place], [address] CO2 [Moles/Vol] 17.7 mmol/L Low 22.0-29.0 [facility] Comment on above: Order Comment: Order Date: 12/20/24Order Info: 0786-1 - CMPOrder Info: [id number] - MG Performed By: #### M 600.5000, M100.637, L3600.5400 #### [facility] [address] [place], [address] Creatinine [Mass/Vol] 0.55 mg/dL Low 0.70-1.20 [facility] Comment on above: Order Comment: Order Date: 12/20/24Order Info: 0786-1 - CMPOrder Info: [id number] - MG Performed By: #### M 600.5000, M100.637, L3600.5400 #### [facility] [address] [place], [address] GFR/1.73 sq M.predicted among non-blacks MDRD (S/P/Bld) [Vol rate/Area] 130 mL/min/{1.73_m2} Normal >60 [facility] Comment on above: Order Comment: Order Date: 12/20/24Order Info: 0786-1 - CMPOrder Info: [id number] - MG Result Comment: mL/m in/1.73m2 CKD-EPI Creatinine Equation (2020) Performed By: #### M 600.5000, M100.637, L3600.5400 #### [facility] [address] [place], [address] Globulin (S) [Mass/Vol] 3.7 g/dL Normal 2.2-4.2 [facility] Comment on above: Order Comment: Order Date: 12/20/24Order Info: 0786-1 - CMPOrder Info: [id number] - MG Performed By: #### M 600.5000, M100.637, L3600.5400 #### [facility] [address] [place], [address] Glucose [Mass/Vol] 201 mg/dL High 70-99 [facility] Comment on above: Order Comment: Order Date: 12/20/24Order Info: 0786-1 - CMPOrder Info: [id number] - MG Performed By: #### M 600.5000, M100.637, L3600.5400 #### [facility] [address] [place], [address] Potassium [Moles/Vol] 3.7 mmol/L Normal 3.3-5.1 [facility] Comment on above: Order Comment: Order Date: 12/20/24Order Info: 0786-1 - CMPOrder Info: [id number] - MG Performed By: #### M 600.5000, M100.637, L3600.5400 #### [facility] [address] [place], [address] Sodium [Moles/Vol] 140 mmol/L Normal 133-145 [facility] Comment on above: Order Comment: Order Date: 12/20/24Order Info: 0786-1 - CMPOrder Info: [id number] - MG Performed By: #### M 600.5000, M100.637, L3600.5400 #### [facility] [address] [place], [address] T PROT 7.6 g/dL Normal 5.9-8.4 [facility] Comment on above: Order Comment: Order Date: 12/20/24Order Info: [id number] - CMPOrder Info: [id number] - MG Performed By: #### M 600.5000, M100.637, L3600.5400 #### [facility] [address] [place], [address] Urea nitrogen [Mass/Vol] 9 mg/dL Normal 4-19 [facility] Comment on above: Order Comment: Order Date: 12/20/24Order Info: [id number] - CMPOrder Info: [id number] - MG Performed By: #### M 600.5000, M100.637, L3600.5400 #### [facility] [address] [place], [address] Eosinophil percentageOrdered By: Skylar Fong on 12-20-2024 Eosinophils/100 WBC (Bld) 1.6 % 0-5 [facility] Erythrocyte distribution wid th ratioOrdered By: Skylar Fong on 12-20-2024 Erythrocyte distribution width (RBC) [Ratio] 11.7 % 11.6-14.6 [facility] Erythrocyte distribution wid th standard deviationOrdered By: Skylar Fong on 12-20-2024 Erythrocyte distribution width (RBC) [Entitic vol] 37.4 fL 35.1-43.9 [facility] Erythrocyte distribution width (RBC) [Ratio] 37.4 fl 35.1-43.9 [facility] GFR/1.73 sq M.predicted alejo g non-blacks MDRD (S/P/Bld) [Vol rate/Area]Ordered By: Skylar Fong on 12-20-2024 Estimated GFR (MDRD) Non-Af Amer 130 >60 [facility] Comment on above: mL/min/1.73m2 CKD-EP I Creatinine Equation (2020) Glomerular filtration rate ( GFR) estimation/1.73 sq m using serum, plasma, or whole bOrdered By: Skylar Fong on 12-20-2024 GFR/1.73 sq M.predicted among non-blacks MDRD (S/P/Bld) [Vol rate/Area] 130 mL/min/{1.73_m2} >60 [facility] Comment on above: mL/min/1.73m2 CKD-EP I Creatinine Equation (2020) Hematocrit Auto (Bld) [Volum e fraction]Ordered By: Skylar Fong on 12-20-2024 Hematocrit (Bld) [Volume fraction] 40.7 % 37-47 [facility] Hemoglobin measurementOrdere d By: Skylar Fong on 12-20-2024 Hemoglobin (Bld) [Mass/Vol] 13.6 g/dL 12.0-15.0 [facility] Immature granulocytes/100 WB C Auto (Bld)Ordered By: Skylar Fong on 12-20-2024 Immature granulocytes/100 WBC (Bld) 0.600 % 0.0-0.9 [facility] Comment on above: IG% - Immature Granu locytes (promyelocytes, myelocytes and metamyelocytes) > 1% indicates that a LEFT SHIFT is Present. Laboratory - Chemistry and C hemistry - challengeOrdered By: Skylar Fong on 12-20-2024 AST [Catalytic activity/Vol] 37 U/L High <32 [facility] Lymphocytes Auto (Unsp spec) [#/Vol]Ordered By: Skylar Fong on 12-20-2024 Lymphocytes (Bld) [#/Vol] 2.66 10*3/uL 0.83-4.51 [facility] Lymphocytes/100 WBC Auto (Un sp spec)Ordered By: Skylar Fong on 12-20-2024 Lymphocytes/100 WBC (Bld) 25.9 % 19-41 [facility] MCV (mean corpuscular volume ) determinationOrdered By: Skylar Fong on 12-20-2024 MCV (RBC) [Entitic vol] 89.1 fL 81-99 [facility] Magnesiumon 12-20-2024 Magnesium [Mass/Vol] 1.9 mg/dL Normal 1.5-2.2 [facility] Comment on above: Order Comment: Order Date: 12/20/24Order Info: [id number] - CMPOrder Info: [id number] - MG Performed By: #### M 600.5000, M100.637, L3600.5400 #### [facility] [address] [place], [address] Magnesium (Unsp spec) [Mass/ Vol]Ordered By: Skylar Fong on 12-20-2024 Magnesium [Mass/Vol] 1.9 mg/dL 1.5-2.2 [facility] Magnesium measurement (mass/ volume)Ordered By: Skylar Fong on 12-20-2024 Magnesium (Unsp spec) [Mass/Vol] 1.9 mg/dL 1.5-2.2 [facility] Mean corpuscular hemoglobin (MCH) determinationOrdered By: Skylar Fong on 12-20-2024 MCH (RBC) [Entitic mass] 29.8 pg 27.0-32.0 [facility] Mean corpuscular hemoglobin concentration (MCHC) determinationOrdered By: Skylar Fong on 12-20-2024 MCHC (RBC) [Mass/Vol] 33.4 g/dL 32-36 [facility] Mean platelet volume determi nationOrdered By: Skylar Fong on 12-20-2024 Platelet mean volume (Bld) [Entitic vol] 9.8 fL 6.2-12.0 [facility] Monocyte percentageOrdered B y: Skylar Fong on 12-20-2024 Monocytes/100 WBC (Bld) 4.2 % 0-10 [facility] Neutrophil percentageOrdered By: Skylar Fong on 12-20-2024 Neutrophils/100 WBC (Bld) 66.1 % 47-70 [facility] Nucleated red blood cell per centageOrdered By: Skylar Fong on 12-20-2024 Nucleated RBC/100 WBC (Bld) [Ratio] 0 % 0-5 [facility] Platelet countOrdered By: Khadar Fong on 12-20-2024 Platelets (Bld) [#/Vol] 442 10*3/uL 150-450 [facility] RBC Auto (Bld) [#/Vol]Ordere d By: Skylar Fong on 12-20-2024 RBC (Bld) [#/Vol] 4.57 10*6/uL 4.2-5.4 [facility] Serum creatinine measurement (mass/volume)Ordered By: Skylar Fong on 12-20-2024 Creatinine [Mass/Vol] 0.55 mg/dL Low 0.70-1.20 [facility] Serum globulin measurementOr dered By: Skylar Fong on 12-20-2024 Globulin (S) [Mass/Vol] 3.7 g/dL 2.2-4.2 [facility] Serum glucose measurement (m ass/volume)Ordered By: Skylar Fong on 12-20-2024 Glucose [Mass/Vol] 201 mg/dL High 70-99 [facility] Serum or plasma alanine zapata otransferase (ALT) measurementOrdered By: Skylar Fong on 12-20-2024 ALT [Catalytic activity/Vol] 42 U/L High <35 [facility] Serum or plasma albumin liana urement (mass/volume)Ordered By: Skylar Fong on 12-20-2024 Albumin [Mass/Vol] 3.9 g/dL 3.5-5.0 [facility] Serum or plasma albumin/glob ulin mass ratioOrdered By: Skylar Fong on 12-20-2024 Albumin/Globulin [Mass ratio] 1.0 {ratio} 0.9-2.4 [facility] Serum or plasma alkaline paula sphatase measurementOrdered By: Skylar Fong on 12-20-2024 ALP [Catalytic activity/Vol] 131 U/L High 35-104 [facility] Serum or plasma anion gap de termination (moles/volume)Ordered By: Skylar Fong on 12-20-2024 Anion gap [Moles/Vol] 16 mmol/L High 5-15 [facility] Serum or plasma calcium liana urement (mass/volume)Ordered By: Skylar Fong on 12-20-2024 Calcium [Mass/Vol] 9.3 mg/dL 7.6-11.0 [facility] Serum or plasma potassium me asurementOrdered By: Skylar Fong on 12-20-2024 Potassium [Moles/Vol] 3.7 mmol/L 3.3-5.1 [facility] Serum or plasma sodium measu rement (moles/volume)Ordered By: Skylar Fong on 12-20-2024 Sodium [Moles/Vol] 140 mmol/L 133-145 [facility] Serum or plasma urea nitroge n measurement (mass/volume)Ordered By: Skylar Fong on 12-20-2024 Urea nitrogen [Mass/Vol] 9 mg/dL 4-19 [facility] Serum prealbumin measurement by immunoassayOrdered By: Skylar Fong on 12-20-2024 Prealbumin [Mass/Vol] 24 mg/dL 14-35 [facility] Comment on above: Performed at: [address] [id number] Director: Lazaro Caputo PhD, Phone: [phone] Total proteinOrdered By: Gricelda Fong on 12-20-2024 Protein [Mass/Vol] 7.6 g/dL 5.9-8.4 [facility] White blood cell (WBC) count Ordered By: Skylar Fong on 12-20-2024 WBC (Bld) [#/Vol] 10.3 10*3/uL 4.4-11.0 [facility] Chest PA and Lateralon 11-08 Chest PA and Lateral [facility] Imaging Services [address] [place], [place] [id number] Chest PA and Lateral MR#: [id number] Acct: [id number] Name: SANTIAGO JACOBSEN Rep #: [id number] : 2000 F 24 From: Claude hood MD PCP: Dr. Skylar Fong MD Status: [facility] Study: Chest PA and Lateral Date of Exam: 11/08/24 Exam# [id number] Ordering Dr: Skylar Fong MD [id number] STUDY: X-RAY CHEST REASON FOR EXAM: Female, 24 years old. COUGH TECHNIQUE: PA and lateral views of the chest. COMPARISON: Comparison is made with prior study dated July 30, 2024. FINDINGS: The lungs are clear and expanded. There is no demonstrated pleural abnormality. Normal size heart. Normal mediastinum and wojciech. Normal visualized pulmonary arteries. Normal visualized aortic arch and descending thoracic aorta. Normal visualized thoracic spine. Normal visualized ribs, clavicles, and shoulders. There is no demonstrated abnormality of the visualized soft tissue structures of the upper abdomen. RAD/Chest PA and Lateral IMPRESSION: Normal x-ray examination of the chest. Electronically Signed: Claude Chauhan MD at 14:39 EST , CC: Dr. Skylar Fong MD [employer] Management System Operator: Signed Normal [facility] LEYLAantoni 10-25-2024 [facility] Office Visit (WALKWA ) -------- DELMARSANTIAGO Hubert ([id number]) 2000 F Date Time Provider Department 10/25/24 9:40 AM YESY DURAND During your visit today, we recorded the following information about you: Temperature Pulse Blood pressure Weight 99.2 degrees 114/minute 136/75 75.6 kg Yesy Durand APRN.CNP 10/25/2024 9:48 AM Signed -------- UPPER RESPIRATORY INFECTIONS Most cases are caused [...] while you are sick so you don't lemon picker a different virus, or infect others. [...] You have any questions or concerns Yesy Durand APRN.CNP 10/25/2024 10:08 AM Signed This note was created using Audituderiter. Subjective Santiago Jacobsen is a 24 year [...] Never Smokeless tobacco: Never Vaping Use Vaping statu (more content not included)... Normal [facility] COVID AND INFLUENZA A/B AND RSV PCR, ROUTINEon 10-25-2024 SARS-CoV-2 (COVID-19) RNA KENNA+probe Ql (Unsp spec) SARS-COV-2 (AGENT OF COVID-19) RNA: Not detected INFLUENZA A RNA: Not detected INFLUENZA B RNA: Not detected RESPIRATORY SYNCYTIAL VIRUS (RSV) RNA: Not detected Normal [facility] Comment on above: Performed By: #### C VFLRS #### [facility] CLIA [id number] [facility] DESK [address] [place] ED Nursing Noteon 10-25-2024 ED Nursing Note Patient states she w as at urgent care but they did nothing for her. She states she went for her right eye swelling and redness that started on Friday. She noticed the redness when she got home from work. She states the swelling then started Friday evening. She states when she was at urgent care they did tell her she had bronchitis but no treatment for her eye. [facility] ED Provider Noteon 5 ED Provider Note EMERGENCY DEPARTMENT ENCOUNTER Pt Name: Santiago Jacobsen Birthdate 2000 Date [...] Medical History: Diagnosis Date Diabetes with ketoacidosis (CMS/HCC) (HCC) Diabetic ketoacidosis without coma associated with type 1 diabetes mellitus (CMS/HCC) (HCC) 03/25/2019 DKA, type 1, not at goal ([facility] ([facility]) 03/15/2019 DM (diabetes mellitus) type 1, uncontrolled, with ketoacidosis ([facility] ([facility]) 03/15/2019 Hypertension Lactic acidemia 03/25/2019 Leukocytosis 03/25/2019 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 Normal [facility] Alpha Antitrypsin Serumon ALPHA1 ANTITRYP 126 mg/dL Normal 100-188 [facility] Comment on above: Result Comment: Perf ormed at: - [facility] [address] [id number] Memorial Marker Designer: Lazaro Caputo PhD, Phone: [phone] Performed By: #### L 3220.2100 #### [facility] [address] [place], [place], [id number] CNOVon 08-09-2024 CNOV Office Visit (PULMWS ) -------- SANTIAGO JACOBSEN ([id number]) 2000 F Date Time Provider Department 08/09/24 3:15 PM BRENDA GILLESPIE PULMWS During your visit today, we recorded the following information about you: Weight 74.4 kg Brenda Gillespie MD 08/09/2024 5:00 PM Signed . Respiratory [place] Note Patient name: Santiago Jacobsen PCP: Skylar Fong MD Referring Physician: Same Consultation requested by Dr. Fong for an opinion regarding possible asthma. My final recommendations will be communicated back to the requesting physician by way of shared Medical record or letter to requesting physician via US mail. CC: Cough, shortness of breath HPI: Santiago Jacobsen 24 year old female non-smoker with PMH significant for HTN, DM 1 with history of DKA, gastroparesis, pancreatic insufficiency being referred for breathing issues. She denies a past history of asthma or allergies. She states she was well until she had COVID several years ago. Since that time she has had a persistent cough. She tends to cough more when she is speaking for prolonged periods of time. Cough does interfere with her sleep. No sputum production. She has not heard any wheezing. She does have some sensation of inability to take a deep breath, chest pressure, and sometimes sensation that her throat is closing up. She will have stuttering breaths not particularly precipitated by activity or changes in the weather or environmental exposures. She occasionally has hoarseness. She has significant gastroparesis and acid reflux disease. Recent pulmonary function test showed mild obstruction without improvement with bronchodilator but it must be noted that she had fair effort although she met ATS guidelines. Inspiratory loop without abnormality. She was recently seen in the emergency department and was told that she had vocal cord dysfunction. Follow-up with her primary care physician concerning for possible asthma. She was started on Trelegy Ellipta. She has trouble affording medication. She only used the Trelegy a few times. Last use was more than a week ago. Exhaled nitric oxide level today was normal at 10 ppb DATA: PFT [facility]: FVC 3.33 L 97% FEV1 2.28 L 77% FEV1/FVC 69% FEF 25-75% 1.91 L 54% Actual reduction in volumes postbronchodilator although missile tracking technician reports patient had less effort with post test aerosol treatment Normal airway resistance Labs: No past eosinophilia Imaging / Diagnostic Studies: Lower lung cuts on recent abdominal pelvic CT shows no abnormalities Recent chest x-ray from [facility] was reviewed and is normal PAST MEDICAL HISTORY Diagnosis Date DKA (diabetic ketoacidosis) ([facility]) 04/2022 Gastroparesis Hypertension Pancreatic insufficiency T1DM (type 1 diabetes mellitus) ([facility]) ALLERGIES Allergen Reactions Penicillins Rash, Vomiting insulin regular human, CONCENTRATED 500 UNIT/ML, 500 unit/mL soln Inject subcutaneously. Per sliding scale medroxyPROGESTERone (DEPO-PROVERA) 150 mg/mL injection Inject 150 mg intramuscularly every [address] (PROTONIX) 40 mg tablet Take 1 tablet by mouth once daily. vagoiw-rrnbeaeb-nyfaosr (ZENPEP) 20,000-63,000- 84,000 unit delayed release capsule Take 1 capsule by mouth three times a day with meals. (Patient not taking: Reported on 08/09/2024) ramipril (ALTACE) 1.25 mg capsule Take 1.25 mg by mouth once daily. (Patient not taking: Reported on 08/09/2024) rosuvastatin (CRESTOR) 10 mg tablet Take 10 mg by mouth daily at bedtime. (Patient not taking: Reported on 08/09/2024) hhgjbkoorkm-qhdzydgfg-fa lanter (TRELEGY ELLIPTA) 100-62.5-25 mcg inhalation powder Inhale 1 Puff as instructed once daily. (Patient not taking: Reported on 08/09/2024) lidocaine viscous (XYLOCAINE) 2 % solution Take 15 mL by mouth three times daily as needed for pain. (Patient not taking: Reported on 02/13/2023) insulin NPH injection (HumuLIN N,NovoLIN N) Inject 14 Units subcutaneously daily with breakfast AND 34 Units daily at bedtime. (Patient taking differently: Inject 10 Units subcutaneously daily with breakfast AND 30 Units daily at bedtime.) ondansetron (ZOFRAN) 4 mg tablet Take 1 tablet by mouth every 8 hours as needed for nausea/vomiting. 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 Normal [facility] Eosinophils Auto (Bld) [#/Vo l]on 08-09-2024 Eosinophils (Bld) [#/Vol] 0.24 10*3/uL [facility] Interpretation and review of laboratory results Normal [facility] Eosinophils (Bld) [#/Vol] 0.24 10*3/uL Normal <0.46 [facility] Comment on above: Order Comment: Speci men Type: BLOOD SPECIMEN Ordering Facility: [facility] Address: [address] [place] [address] Performed By: #### 7 11-2 #### [facility] CLIA [id number] [address] [place] [address] [place] IgE SerPl-aCncon 08-09-2024 IgE Qn 60.8 kU/l Normal <114.0 [facility] Comment on above: Order Comment: Speci men Type: BLOOD SPECIMEN Ordering Facility: [facility] Address: [address] [place] [address] Performed By: #### 1 9113-0 #### [facility] CLIA [id number] [address] [place] [address] [place] CBC W/Diff, Automatedon 07-20 Absolute Lymph 2.57 X10 3/uL Normal 0.83-4.51 [facility] Comment on above: Performed By: #### L 3100.1950, L502.000 #### [facility] [address] [place], [address] Absolute Neut 8.6 X10 3/uL High 2.0-7.7 [facility] Comment on above: Performed By: #### L 3100.1950, L502.000 #### [facility] [address] [place], [address] Basophils/100 WBC (Bld) 1.2 % High 0-1 [facility] Comment on above: Performed By: #### L 3100.1949, L502.000 #### [facility] [address] [place], [address] Eosinophils/100 WBC (Bld) 0.9 % Normal 0-5 [facility] Comment on above: Performed By: #### L 0.1949, L502.000 #### [facility] [address] [place], [address] Erythrocyte distribution width (RBC) [Ratio] 12.8 % Normal 11.6-14.6 [facility] Comment on above: Performed By: #### L 3100.1949, L502.000 #### [facility] [address] [place], [address] Hematocrit (Bld) [Volume fraction] 41.9 % Normal 37-47 [facility] Comment on above: Performed By: #### L 0.1949, L502.000 #### [facility] [address] [place], [address] Hemoglobin (Bld) [Mass/Vol] 13.7 g/dL Normal 12.0-15.0 [facility] Comment on above: Performed By: #### L 3100.1949, L502.000 #### [facility] [address] [place], [address] IG% 0.700 Normal 0.0-0.9 [facility] Comment on above: Result Comment: IG% - Immature Granulocytes (promyelocytes, myelocytes and metamyelocytes) > 1% indicates that a LEFT SHIFT is Present. Performed By: #### L 3100.1949, L502.000 #### [facility] [address] [place], [address] Lymphocytes/100 WBC (Bld) 21.0 % Normal 19-41 [facility] Comment on above: Performed By: #### L 3100.1949, L502.000 #### [facility] [address] [place], [address] MCH (RBC) [Entitic mass] 28.4 pg Normal 27.0-32.0 [facility] Comment on above: Performed By: #### L 3100.1949, L502.000 #### [facility] [address] [place], [address] MCHC (RBC) [Mass/Vol] 32.7 g/dL Normal 32-36 [facility] Comment on above: Performed By: #### L 3100.1949, L502.000 #### [facility] [address] [place], [address] MCV (RBC) [Entitic vol] 86.7 fL Normal 81-99 [facility] Comment on above: Performed By: #### L 0.1949, L502.000 #### [facility] [address] [place], [address] Monocytes/100 WBC (Bld) 6.1 % Normal 0-10 [facility] Comment on above: Performed By: #### L 0.1949, L502.000 #### [facility] [address] [place], [address] Neutrophils/100 WBC (Bld) 70.1 % High 47-70 [facility] Comment on above: Performed By: #### L 0.1949, L502.000 #### [facility] [address] [place], [address] Nucleated RBC (Bld) [#/Vol] 0 10*3/uL Normal 0-5 [facility] Comment on above: Performed By: #### L 3100.1949, L502.000 #### [facility] [address] [place], [address] Platelet mean volume (Bld) [Entitic vol] 9.2 fL Normal 6.2-12.0 [facility] Comment on above: Performed By: #### L 3100.1949, L502.000 #### [facility] [address] [place], [address] Platelets (Bld) [#/Vol] 448 10*3/uL Normal 150-450 [facility] Comment on above: Performed By: #### L 3100.1949, L502.000 #### [facility] [address] [place], [address] RBC (Bld) [#/Vol] 4.83 10*6/uL Normal 4.2-5.4 [facility] Comment on above: Performed By: #### L 3100.1949, L502.000 #### [facility] [address] [place], [address] RDW SD 40.2 fl Normal 35.1-43.9 [facility] Comment on above: Performed By: #### L 3100.1949, L502.000 #### [facility] [address] [place], [address] WBC (Bld) [#/Vol] 12.3 10*3/uL High 4.4-11.0 [facility] Comment on above: Performed By: #### L 3100.1949, L502.000 #### [facility] [address] [place], [address] Chest PA and Lateralon 07-30 Chest PA and Lateral [facility] Services [address] [place] [address] Chest PA and Lateral MR#: [id number] Acct: [id number] Name: SANTIAGO JACOBSEN Rep #: [id number] : 2000 F 24 From: Dimas Sanford MD PCP: Dr. Skylar Fong MD Status: [facility] Study: Chest PA and Lateral Date of Exam: 07/30/24 Exam# [id number] Ordering Dr: Everardo Agarwal MD [id number] STUDY: X-RAY CHEST REASON FOR EXAM: Female, 24 years old. Cough TECHNIQUE: PA and lateral COMPARISON: None. FINDINGS: The lungs are clear and expanded. There is no demonstrated pleural abnormality. Normal size heart. Normal mediastinum and wojciech. Normal visualized pulmonary arteries. Normal visualized aortic arch and descending thoracic aorta. Dorsal spine demonstrates dextroscoliosis. Normal visualized ribs, clavicles, and shoulders. There is no demonstrated abnormality of the visualized soft tissue structures of the upper abdomen. RAD/Chest PA and Lateral IMPRESSION: No acute cardiopulmonary pathology Electronically Signed: Dimas Sanfodr MD at 18:53 EDT , CC: Dr. Skylar Fong MD; Dr. Everardo Agarwal MD [employer] Management System Operator: Signed Normal [facility] Comprehensive Metabolic Prof [facility] 07-30-2024 Albumin [Mass/Vol] 3.2 g/dL Normal 3.2-5.0 [facility] Comment on above: Performed By: #### L 3100.1950, L502.000 #### [facility] [address] [place], [address] Albumin/Globulin [Mass ratio] 0.7 {ratio} Low 0.9-2.4 [facility] Comment on above: Performed By: #### L 3100.1950, L502.000 #### [facility] [address] [place], [address] ALK P 185 U/L High 45-117 [facility] Comment on above: Performed By: #### L 3100.1949, L502.000 #### [facility] [address] [place], [address] ALT [Catalytic activity/Vol] 45 U/L Normal 13-56 [facility] Comment on above: Performed By: #### L 0.1949, L502.000 #### [facility] [address] [place], [address] AST [Catalytic activity/Vol] 28 U/L Normal 15-37 [facility] Comment on above: Performed By: #### L 3100.1949, L502.000 #### [facility] [address] [place], [address] Bilirubin [Mass/Vol] 0.40 mg/dL Normal 0.20-1.00 [facility] Comment on above: Result Comment: For patients on eltrombopag therapy, use of Dimension [place] TBIL is not recommended. Performed By: #### L 0.1949, L502.000 #### [facility] [address] [place], [address] BUN/CRE 9.5 RATIO Low 10-20 [facility] Comment on above: Performed By: #### L 0.1949, L502.000 #### [facility] [address] [place], [address] CA,Total 10.1 mg/dL Normal 8.5-10.1 [facility] Comment on above: Performed By: #### L 0.1949, L502.000 #### [facility] [address] [place], [address] Chloride [Moles/Vol] 104 mmol/L Normal 98-107 [facility] Comment on above: Performed By: #### L 0.1949, L502.000 #### [facility] [address] [place], [address] CO2 [Moles/Vol] 21.0 mmol/L Normal 21.0-32.0 [facility] Comment on above: Performed By: #### L 3100.1949, L502.000 #### [facility] [address] [place], [address] Creatinine [Mass/Vol] 1.05 mg/dL High 0.55-1.02 [facility] Comment on above: Result Comment: The validity of the calculated GFR GFRAA in patients over 70 years has not been determined. Clinical correlation is essential. Performed By: #### L 3100.1949, L502.000 #### [facility] [address] [place], [address] ECRCL 77.15 ml/min Normal [facility] Comment on above: Performed By: #### L 0.1949, L502.000 #### [facility] [address] [place], [address] EST GFR - AA 82 mL/min Normal >60 [facility] Comment on above: Result Comment: Afri can Iraqi GFR Calc Performed By: #### L 0.1949, L502.000 #### [facility] [address] [place], [address] GAP 14 Normal 5-15 [facility] Comment on above: Performed By: #### L 0.1949, L502.000 #### [facility] [address] [place], [address] GFR/1.73 sq M.predicted among non-blacks MDRD (S/P/Bld) [Vol rate/Area] 68 mL/min/{1.73_m2} Normal >60 [facility] Comment on above: Result Comment: Non- GFR Calc Performed By: #### L 3100.1949, L502.000 #### [facility] [address] [place], [address] Globulin (S) [Mass/Vol] 4.9 g/dL High 2.2-4.2 [facility] Comment on above: Performed By: #### L 3100.1949, L502.000 #### [facility] [address] [place], [address] Glucose [Mass/Vol] 121 mg/dL High 74-106 [facility] Comment on above: Result Comment: Fast ing Glucose result from 100 to 125 mg/dL suggests IMPAIRED HOMEOSTASIS per A.D.A. criteria. Performed By: #### L 3100.1949, L502.000 #### [facility] [address] [place], [address] Potassium [Moles/Vol] 3.6 mmol/L Normal 3.5-5.1 [facility] Comment on above: Performed By: #### L 0.1949, L502.000 #### [facility] [address] [place], [address] Sodium [Moles/Vol] 139 mmol/L Normal 136-145 [facility] Comment on above: Performed By: #### L 3100.1949, L502.000 #### [facility] [address] [place], [address] T PROT 8.1 g/dL Normal 6.4-8.2 [facility] Comment on above: Performed By: #### L 3100.1949, L502.000 #### [facility] [address] [place], [address] Urea nitrogen [Mass/Vol] 10 mg/dL Normal 7-18 [facility] Comment on above: Performed By: #### L 3100.1949, L502.000 #### [facility] [address] [place], [address] Emergency Department Summary on 07-30-2024 Emergency Department Summary [facility] Medical Records Department [address] [place] [address] Emergency Department Summary 07/30/24 MR#: [id number] Acct: [id number] Name: SANTIAGO JACOBSEN Rep #: [id number] : 2000 24 From: Everardo Agarwal MD PCP: Dr. Skylar Fong MD Status:REG ER Location: ED HPI History of Present Illness Chief Complaint: Shortness of Breath Detail of Chief Complaint: Shortness of breath, wheezing, cough, recent PFT Informant: patient and family Onset/Context/Timing Onset: Weeks Context: sudden Timing: Intermittent Quality: Positive for Wheezing; Negative for Dyspnea on exertion, Orthopnea or PND Current Severity: Moderate Maximum Severity: Severe Worsened by: Nothing (Patient has symptoms when she gets excited. This occurred during exit interview) Relieved by: Nothing Associated Symptoms cough and rhinorrhea; Negative for post nasal drip, ear pain, fever, sore throat, subjective, chills or sweats Chest Pain: Positive for None Narrative Narrative: Patient is a 24-year-old female. She has history of type 1 diabetes with gastroparesis, overweight, and recent PFT for evaluation of asthma because of reported wheezing. Patient denies tasting blood in the back of her throat when she has 1 of these episodes. Patient becomes very anxious and tearful. Patient denies history of VTE. She has no risk factors for VTE. She denies black or maroon-colored stool. She denies pain with breathing. PE Risk Factors: Negative for Cancer, OCP + Smoking + > 35, Prior DVT or PE, Recent immobilization, Recent surgery or Recent travel Prior similar symptoms: Yes Recent Illness/Hospitalization: No PFSH [facility] Medical History Hypertension Anxiety and depression Hypothyroidism Dyslipidemia (high LDL; low HDL) Home Medications ???Medication ???Instructions ???Recorded ???Last Taken ???Type levothyroxine 50 mcg tablet 50 mcg PO DAILY thyroid #90 tabs 02/08/20 Unknown Rx lisinopril 20 mg tablet 30 mg (1.5 x 20 mg) PO DAILY blood 02/08/20 Unknown Rx pressure 3 months #135 tabs insulin NPH isoph U-100 human 100 10 unit subcut BREAKFAST Check 03/09/22 Unknown History unit/mL subcutaneous suspension with primary doctor (Novolin N NPH U-100 Insulin isophane) insulin NPH isoph U-100 human 100 30 unit subcut QHS Check with 03/09/22 Unknown History unit/mL subcutaneous suspension primary doctor (Novolin N NPH U-100 Insulin isophane) insulin regular human 100 unit/mL 10 unit subcut TID Check with 03/09/22 Unknown History injection solution (Novolin R primary doctor Regular U-100 Insulin) insulin regular human 100 unit/mL See Protocol subcut ACHS Check 03/09/22 Unknown History injection solution (Novolin R with primary doctor Regular U-100 Insulin) clorazepate dipotassium 3.75 mg 3.75 mg PO TID 10 days #30 tabs 07/30/24 Unknown Rx tablet Allergy/AdvReac Type Severity Reaction Status Date / Time No Known Allergies Allergy Verified 07/30/24 17:55 Family History Other CVA (cerebral vascular accident) Diabetes Heart disease Hypertension Surgical History Hx of tympanostomy tubes History of tonsillectomy Social History Smoking Status: Never smoker ROS ROS ED Constitutional Constitutional ED: Denies chills, fever(s) or sweats Eyes Eyes: Denies blurry vision or change in vision ENT ENT ED: Reports rhinorrhea; Denies ear pain or sore throat Cardiovascular Cardiovascular: Denies chest pain, orthopnea, palpitations or paroxysmal nocturnal dyspnea Respiratory/Chest Respiratory/Chest: Reports cough and dyspnea; Denies dyspnea on exertion, orthopnea, paroxysmal nocturnal dyspnea or sputum Gastrointestinal Gastrointestinal: Reports nausea and other Details: History of gastroparesis due to diabetes. ; Denies abdominal pain or vomiting Genitourinary Genitourinary ED: Denies dysuria, hematuria or urinary frequency Musculoskeletal Musculoskeletal: Denies back pain or neck pain Neurologic Neurologic: Reports paresthesias RUE, RLE, LUE and LLE; Denies headache(s) or weakness Psychiatric Psychiatric: Reports anxiety and depression; Denies suicidal ideation Endocrine Endocrinology: Reports other Details: Patient has history of hypothyroidism on levothyroxine. ; Denies cold intolerance or heat intolerance Hematologic/Lymphatic Hematologic/Lymphatic: Denies easy bleeding or easy bruising EXAM Physical Exam Const Vital Signs: 07/30/24 17:55 07/30/24 18:21 07/30/24 19:00 Temperature 96 F L Temperature Source Temporal Pulse Rate 128 H 122 H Respiratory Rate 25 H 16 Respiratory Effort Short of B (more content not included)... Normal [facility] M100.678on 07-30-2024 M100.678 Pending SARS-CoV-2 (COVID 19) Negative INFLUENZA A Negative INFLUENZA B Negative RSV PCR Negative Normal [facility] Comment on above: Performed By: #### L 3100.1950, L502.000 #### [facility] [address] [facility] [place], [place], [address] Chest PA and Lateralon 07-06 Chest PA and Lateral [facility] [address] [place], [place] [address] Chest PA and Lateral MR#: [id number] Acct: [id number] Name: SANTIAGO JACOBSEN Rep #: [id number] : 2000 F 24 From: Frank Womack MD PCP: Dr. Skylar Fong MD Status: [facility] Study: Chest PA and Lateral Date of Exam: 07/06/24 Exam# [id number] Ordering Dr: Skylar Fong MD [id number] STUDY: X-RAY CHEST REASON FOR EXAM: Female, 24 years old. Shortness of breath. TECHNIQUE: Frontal and lateral views of the chest. COMPARISON: March 09, 2022 FINDINGS: The lungs are clear and expanded. There is no demonstrated pleural abnormality. Normal size heart. Normal mediastinum and wojciech. Normal visualized pulmonary arteries. Normal visualized aortic arch and descending thoracic aorta. Normal visualized thoracic spine. Normal visualized ribs, clavicles, and shoulders. No abnormality of the visualized soft tissue structures of the upper abdomen. RAD/Chest PA and Lateral IMPRESSION: No interval change and no acute or active cardiopulmonary disease. Electronically Signed: Frank Womack MD at 12:58 EDT Reading Location ID and State: [address] [place] [address] , Service support , CC: Dr. Skylar Fong MD [employer] Operator: Signed Normal [facility] CBC W/Diff, Automatedon 05-21 Absolute Lymph 2.53 X10 3/uL Normal 0.83-4.51 [facility] Comment on above: Order Comment: Test( s) 885826-Nvvonvna,F,ug/L,U was developed and its performance characteristics determined by [facility]. It has not been cleared or approved by the Food and Drug Administration. Performed By: #### L 3100.1949, L502.000 #### [facility] [address] [facility] [place], [address] Absolute Neut 6.4 X10 3/uL Normal 2.0-7.7 [facility] Comment on above: Order Comment: Test( s) 466171-Zybljmkn,F,ug/L,U was developed and its performance characteristics determined by [facility]. It has not been cleared or approved by the Food and Drug Administration. Performed By: #### L 3100.1949, L502.000 #### [facility] [address] [place], [address] Basophils/100 WBC (Bld) 1.2 % High 0-1 [facility] Comment on above: Order Comment: Test( s) 632348-Bfhnmglx,F,ug/L,U was developed and its performance characteristics determined by [facility]. It has not been cleared or approved by the Food and Drug Administration. Performed By: #### L 3100.1949, L502.000 #### [facility] [address] [place], [address] Eosinophils/100 WBC (Bld) 1.0 % Normal 0-5 [facility] Comment on above: Order Comment: Test( s) 970884-Jahkcksi,F,ug/L,U was developed and its performance characteristics determined by [facility]. It has not been cleared or approved by the Food and Drug Administration. Performed By: #### L 3100.1950, L502.000 #### [facility] [address] [place], [address] Erythrocyte distribution width (RBC) [Ratio] 12.3 % Normal 11.6-14.6 [facility] Comment on above: Order Comment: Test( s) 528416-Suqbvqmi,F,ug/L,U was developed and its performance characteristics determined by [facility]. It has not been cleared or approved by the Food and Drug Administration. Performed By: #### L 3100.1949, L502.000 #### [facility] [address] [place], [address] Hematocrit (Bld) [Volume fraction] 39.1 % Normal 37-47 [facility] Comment on above: Order Comment: Test( s) 984660-Bidhahmq,F,ug/L,U was developed and its performance characteristics determined by [facility]. It has not been cleared or approved by the Food and Drug Administration. Performed By: #### L 3100.1949, L502.000 #### [facility] [address] [place], [address] Hemoglobin (Bld) [Mass/Vol] 12.8 g/dL Normal 12.0-15.0 [facility] Comment on above: Order Comment: Test( s) 568674-Luwteflo,F,ug/L,U was developed and its performance characteristics determined by [facility]. It has not been cleared or approved by the Food and Drug Administration. Performed By: #### L 3100.1950, L502.000 #### [facility] [address] [place], [address] IG% 0.600 Normal 0.0-0.9 [facility] Comment on above: Order Comment: Test( s) 625552-Ddlrozsj,F,ug/L,U was developed and its performance characteristics determined by [facility]. It has not been cleared or approved by the Food and Drug Administration. Result Comment: IG% - Immature Granulocytes (promyelocytes, myelocytes and metamyelocytes) > 1% indicates that a LEFT SHIFT is Present. Performed By: #### L 3100.1949, L502.000 #### [facility] [address] [place], [address] Lymphocytes/100 WBC (Bld) 26.1 % Normal 19-41 [facility] Comment on above: Order Comment: Test( s) 539952-Szpjsyag,F,ug/L,U was developed and its performance characteristics determined by [facility]. It has not been cleared or approved by the Food and Drug Administration. Performed By: #### L 3100.1949, L502.000 #### [facility] [address] [place], [address] MCH (RBC) [Entitic mass] 27.6 pg Normal 27.0-32.0 [facility] Comment on above: Order Comment: Test( s) 346741-Wsziybxh,F,ug/L,U was developed and its performance characteristics determined by [facility]. It has not been cleared or approved by the Food and Drug Administration. Performed By: #### L 0.1949, L502.000 #### [facility] [address] [place], [address] MCHC (RBC) [Mass/Vol] 32.7 g/dL Normal 32-36 [facility] Comment on above: Order Comment: Test( s) 340101-Ascypcye,F,ug/L,U was developed and its performance characteristics determined by [facility]. It has not been cleared or approved by the Food and Drug Administration. Performed By: #### L 3100.1949, L502.000 #### [facility] [address] [facility] [place], [address] MCV (RBC) [Entitic vol] 84.3 fL Normal 81-99 [facility] Comment on above: Order Comment: Test( s) 569121-Khrgfrdq,F,ug/L,U was developed and its performance characteristics determined by [facility]. It has not been cleared or approved by the Food and Drug Administration. Performed By: #### L 3100.1949, L502.000 #### [facility] [address] [place], [address] Monocytes/100 WBC (Bld) 5.4 % Normal 0-10 [facility] Comment on above: Order Comment: Test( s) 678140-Hqeqmbap,F,ug/L,U was developed and its performance characteristics determined by [facility]. It has not been cleared or approved by the Food and Drug Administration. Performed By: #### L 3100.1949, L502.000 #### [facility] [address] [place], [address] Neutrophils/100 WBC (Bld) 65.7 % Normal 47-70 [facility] Comment on above: Order Comment: Test( s) 782240-Hrqpnysu,F,ug/L,U was developed and its performance characteristics determined by [facility]. It has not been cleared or approved by the Food and Drug Administration. Performed By: #### L 0.1949, L502.000 #### [facility] [address] [place], [address] Nucleated RBC (Bld) [#/Vol] 0 10*3/uL Normal 0-5 [facility] Comment on above: Order Comment: Test( s) 562501-Oudjpgrf,F,ug/L,U was developed and its performance characteristics determined by [facility]. It has not been cleared or approved by the Food and Drug Administration. Performed By: #### L 3100.1949, L502.000 #### [facility] [address] [place], [address] Platelet mean volume (Bld) [Entitic vol] 9.3 fL Normal 6.2-12.0 [facility] Comment on above: Order Comment: Test( s) 869841-Pejephqu,F,ug/L,U was developed and its performance characteristics determined by [facility]. It has not been cleared or approved by the Food and Drug Administration. Performed By: #### L 0.1949, L502.000 #### [facility] [address] [place], [address] Platelets (Bld) [#/Vol] 391 10*3/uL Normal 150-450 [facility] Comment on above: Order Comment: Test( s) 671299-Tpdmgvuq,F,ug/L,U was developed and its performance characteristics determined by [facility]. It has not been cleared or approved by the Food and Drug Administration. Performed By: #### L 0.1949, L502.000 #### [facility] [address] [place], [address] RBC (Bld) [#/Vol] 4.64 10*6/uL Normal 4.2-5.4 [facility] Comment on above: Order Comment: Test( s) 506267-Qlkgdxqq,F,ug/L,U was developed and its performance characteristics determined by [facility]. It has not been cleared or approved by the Food and Drug Administration. Performed By: #### L 0.1949, L502.000 #### [facility] [address] [place], [address] RDW SD 37.8 fl Normal 35.1-43.9 [facility] Comment on above: Order Comment: Test( s) 800891-Kprbucps,F,ug/L,U was developed and its performance characteristics determined by [facility]. It has not been cleared or approved by the Food and Drug Administration. Performed By: #### L 0.1949, L502.000 #### [facility] [address] [place], [address] WBC (Bld) [#/Vol] 9.7 10*3/uL Normal 4.4-11.0 [facility] Comment on above: Order Comment: Test( s) 877412-Akfzxmea,F,ug/L,U was developed and its performance characteristics determined by [facility]. It has not been cleared or approved by the Food and Drug Administration. Performed By: #### L 3100.1949, L502.000 #### [facility] [address] [place], [address] Comprehensive Metabolic Prof ilon 06-14-2024 Albumin [Mass/Vol] 2.7 g/dL Low 3.2-5.0 [facility] Comment on above: Order Comment: Test( s) 614845-Yumagqwh,F,ug/L,U was developed and its performance characteristics determined by [facility]. It has not been cleared or approved by the Food and Drug Administration. Performed By: #### L 3100.1949, L502.000 #### [facility] [address] [place], [address] Albumin/Globulin [Mass ratio] 0.6 {ratio} Low 0.9-2.4 [facility] Comment on above: Order Comment: Test( s) 496763-Ogvovlts,F,ug/L,U was developed and its performance characteristics determined by [facility]. It has not been cleared or approved by the Food and Drug Administration. Performed By: #### L 0.1949, L502.000 #### [facility] [address] [place], [address] ALK P 151 U/L High 45-117 [facility] Comment on above: Order Comment: Test( s) 176768-Kbtaqwbd,F,ug/L,U was developed and its performance characteristics determined by [facility]. It has not been cleared or approved by the Food and Drug Administration. Performed By: #### L 3100.1949, L502.000 #### [facility] [address] [place], [address] ALT [Catalytic activity/Vol] 34 U/L Normal 13-56 [facility] Comment on above: Order Comment: Test( s) 539052-Pusticmg,F,ug/L,U was developed and its performance characteristics determined by [facility]. It has not been cleared or approved by the Food and Drug Administration. Performed By: #### L 0.1949, L502.000 #### [facility] [address] [place], [address] AST [Catalytic activity/Vol] 36 U/L Normal 15-37 [facility] Comment on above: Order Comment: Test( s) 330221-Nflntedg,F,ug/L,U was developed and its performance characteristics determined by [facility]. It has not been cleared or approved by the Food and Drug Administration. Performed By: #### L 0.1949, L502.000 #### [facility] [address] [place], [address] Bilirubin [Mass/Vol] 0.30 mg/dL Normal 0.20-1.00 [facility] Comment on above: Order Comment: Test( s) 834913-Vompskhn,F,ug/L,U was developed and its performance characteristics determined by [facility]. It has not been cleared or approved by the Food and Drug Administration. Result Comment: For patients on eltrombopag therapy, use of Dimension [place] TBIL is not recommended. Performed By: #### L 0.1949, L502.000 #### [facility] [address] [place], [address] BUN/CRE 10.0 RATIO Normal 10-20 [facility] Comment on above: Order Comment: Test( s) 025502-Lyyclygg,F,ug/L,U was developed and its performance characteristics determined by [facility]. It has not been cleared or approved by the Food and Drug Administration. Performed By: #### L 0.1949, L502.000 #### [facility] [address] [place], [address] CA,Total 9.6 mg/dL Normal 8.5-10.1 [facility] Comment on above: Order Comment: Test( s) 239590-Ybbcvgog,F,ug/L,U was developed and its performance characteristics determined by [facility]. It has not been cleared or approved by the Food and Drug Administration. Performed By: #### L 0.1949, L502.000 #### [facility] [address] [place], [address] Chloride [Moles/Vol] 104 mmol/L Normal 98-107 [facility] Comment on above: Order Comment: Test( s) 369162-Tyfqodob,F,ug/L,U was developed and its performance characteristics determined by [facility]. It has not been cleared or approved by the Food and Drug Administration. Performed By: #### L 0.1949, L502.000 #### [facility] [address] [facility] [place], [address] CO2 [Moles/Vol] 18.0 mmol/L Low 21.0-32.0 [facility] Comment on above: Order Comment: Test( s) 731520-Ybcwzgdt,F,ug/L,U was developed and its performance characteristics determined by [facility]. It has not been cleared or approved by the Food and Drug Administration. Performed By: #### L 0.1949, L502.000 #### [facility] [address] [facility] [place], [address] Creatinine [Mass/Vol] 0.70 mg/dL Normal 0.55-1.02 [facility] Comment on above: Order Comment: Test( s) 573803-Qvwytqew,F,ug/L,U was developed and its performance characteristics determined by [facility]. It has not been cleared or approved by the Food and Drug Administration. Result Comment: The validity of the calculated GFR GFRAA in patients over 70 years has not been determined. Clinical correlation is essential. Performed By: #### L 0.1949, L502.000 #### [facility] [address] [place], [address] EST GFR - AA 131 mL/min Normal >60 [facility] Comment on above: Order Comment: Test( s) 650296-Zhmvkltx,F,ug/L,U was developed and its performance characteristics determined by [facility]. It has not been cleared or approved by the Food and Drug Administration. Result Comment: Afri can Iraqi GFR Calc Performed By: #### L 3100.1949, L502.000 #### [facility] [address] [place], [address] GAP 17 High 5-15 [facility] Comment on above: Order Comment: Test( s) 409570-Pktrpbfn,F,ug/L,U was developed and its performance characteristics determined by [facility]. It has not been cleared or approved by the Food and Drug Administration. Performed By: #### L 3100.1949, L502.000 #### [facility] [address] [place], [address] GFR/1.73 sq M.predicted among non-blacks MDRD (S/P/Bld) [Vol rate/Area] 108 mL/min/{1.73_m2} Normal >60 [facility] Comment on above: Order Comment: Test( s) 862729-Kwnnwsoy,F,ug/L,U was developed and its performance characteristics determined by [facility]. It has not been cleared or approved by the Food and Drug Administration. Result Comment: Non- GFR Calc Performed By: #### L 3100.1949, L502.000 #### [facility] [address] [place], [address] Globulin (S) [Mass/Vol] 4.6 g/dL High 2.2-4.2 [facility] Comment on above: Order Comment: Test( s) 146566-Jfjnceqt,F,ug/L,U was developed and its performance characteristics determined by [facility]. It has not been cleared or approved by the Food and Drug Administration. Performed By: #### L 3100.1949, L502.000 #### [facility] [address] [place], [address] Glucose [Mass/Vol] 161 mg/dL High 74-106 [facility] Comment on above: Order Comment: Test( s) 812213-Fjivaqim,F,ug/L,U was developed and its performance characteristics determined by [facility]. It has not been cleared or approved by the Food and Drug Administration. Result Comment: Fast ing Glucose result greater than or equal to 126 mg/dL suggests DIABETES MELLITUS per A.D.A. criteria. Performed By: #### L 3100.1949, L502.000 #### [facility] [address] [place], [address] Potassium [Moles/Vol] 3.4 mmol/L Low 3.5-5.1 [facility] Comment on above: Order Comment: Test( s) 463883-Bdujeucf,F,ug/L,U was developed and its performance characteristics determined by [facility]. It has not been cleared or approved by the Food and Drug Administration. Performed By: #### L 3100.1949, L502.000 #### [facility] [address] [place], [address] Sodium [Moles/Vol] 139 mmol/L Normal 136-145 [facility] Comment on above: Order Comment: Test( s) 099721-Soeqwnup,F,ug/L,U was developed and its performance characteristics determined by [facility]. It has not been cleared or approved by the Food and Drug Administration. Performed By: #### L 0.1949, L502.000 #### [facility] [address] [place], [address] T PROT 7.3 g/dL Normal 6.4-8.2 [facility] Comment on above: Order Comment: Test( s) 969825-Mlztcgrb,F,ug/L,U was developed and its performance characteristics determined by [facility]. It has not been cleared or approved by the Food and Drug Administration. Performed By: #### L 3100.1949, L502.000 #### [facility] [address] [place], [address] Urea nitrogen [Mass/Vol] 7 mg/dL Normal 7-18 [facility] Comment on above: Order Comment: Test( s) 869881-Unadfbeh,F,ug/L,U was developed and its performance characteristics determined by [facility]. It has not been cleared or approved by the Food and Drug Administration. Performed By: #### L 3100.1950, L502.000 #### [facility] [address] [place], [address] Hemoglobin A1con 06-14-2024 HbA1c (Bld) [Mass fraction] 9.2 % High 3.8-5.6 [facility] Comment on above: Order Comment: Test( s) 173900-Kbwneozg,F,ug/L,U was developed and its performance characteristics determined by [email or web address]. It has not been cleared or approved by the Food and Drug Administration. Result Comment: Norm al < 5.7 % Prediabetic 5.7 - 6.4 % Diabetic >or= 6.5 % Please note range changes. Performed By: #### L 3100.1950, L502.000 #### [facility] [address] [place], [address] Ova and Parasites 8623on OP Order Date: 05/27/24 Order Info: 22737-0 - OP OVA AND PARASITES EXAM, ROUTINE These results were obtained using wet preparation(s) and trichrome stained smear. This test does not include testing for Crytosporidium parvum, Cyclospora, or Microsporidia. O+P Spec Micro One negative specimen does not rule out the possibility of a parasitic infection. TESTING PERFORMED AT [facility]. ORIGINAL REPORT ON FILE IN LAB CONTAINS ADDITIONAL TEST SITE INFORMATION. Ova/Parasite Exam NO OVA, CYSTS, OR PARASITES FOUND. Normal [facility] Comment on above: Performed By: #### M 600.5000, M100.637, L3600.5400 #### [facility] [address] [place], [address] Cortisol, 24 HR UR Freeon CORTISOL,F/24hr 64 ug/24 hr High 6-42 [facility] Comment on above: Order Comment: Test( s) 401715-Vhtnmugb,F,ug/L,U was developed and its performance characteristics determined by [facility]. It has not been cleared or approved by the Food and Drug Administration. Performed By: #### M 600.5000, M100.637, L3600.5400 #### [facility] [address] [place], [address] CORTISOL,U FREE 21 ug/L Normal Undefined [facility] Comment on above: Order Comment: Test( s) 867510-Rsxxlabq,F,ug/L,U was developed and its performance characteristics determined by [facility]. It has not been cleared or approved by the Food and Drug Administration. Performed By: #### M 600.5000, M100.637, L3600.5400 #### [facility] [address] [place], [address] H. PYLORI STOOL AGon 024 H PYLORI STL AG Negative Normal Negative [facility] Comment on above: Order Comment: Test( s) 831234-Lvaikqkn,F,ug/L,U was developed and its performance characteristics determined by [facility]. It has not been cleared or approved by the Food and Drug Administration. Result Comment: Perf ormed at: [facility] Lab[address] [id number] Memorial Marker Designer: Lorenzo Jon MD, Phone: [phone] Performed at: [address] [id number] Memorial Marker Designer: Lazaro Caputo PhD, Phone: [phone] Performed By: #### L 3106.1949, L502.000 #### [facility] [address] [place], [address] Adrenocorticotropic Hormoneo n 06-01-2024 ACTH 16.9 pg/mL Normal 7.2-63.3 [facility] Comment on above: Order Comment: Order Date: 05/27/24 Order Info: 2161-8 - CREATU Result Comment: ACTH reference interval for samples collected between 7 and 10 AM. Performed at: [address] [id number] Memorial Marker Designer: Lazaro Caputo PhD, Phone: [phone] Performed By: #### L 3100.1949, L502.000 #### [facility] [address] [place], [address] DHEA Sulfateon 06-01-2024 DHEA SULFATE 127.0 ug/dL Normal 84.8-378.0 [facility] Comment on above: Order Comment: Order Date: 05/27/24 Order Info: 216-8 - CREATU Performed By: #### L 3100.1949, L502.000 #### [facility] [address] [place], [address] 24 HR Urine Creatinineon UR COLLECT TIME 24.0 HOURS Normal 24.0 [facility] Comment on above: Order Comment: Order Date: 05/27/24 Order Info: 216-8 - CREATU Performed By: #### L 3100.1949, L502.000 #### [facility] [address] [place], [address] UR TOTAL VOLUME 3.00 Normal [facility] Comment on above: Order Comment: Order Date: 05/27/24 Order Info: 2161-8 - CREATU Performed By: #### L 3100.1949, L502.000 #### [facility] [address] [place], [address] UR.CREAT/24hr 0.81 g/24 HR Normal 0.70-1.90 [facility] Comment on above: Order Comment: Order Date: 05/27/24 Order Info: 2161-05 - CREATU Performed By: #### L 3100.1950, L502.000 #### [facility] [address] [place], [address] URINE CREAT 26.40 mg/dL Normal NO RANGE EST. [facility] Comment on above: Order Comment: Order Date: 05/27/24 Order Info: 2161-05 - CREATU Performed By: #### L 3100.1950, L502.000 #### [facility] [address] [place], [address] ENTERIC PATHOGEN PANEL STOOL on 05-31-2024 EP PANEL Order Date: 05/27/24 Order Info: 625-4 - CUST Normal Reference Range = Not Detected GI pathogens Pnl Stl KENNA+probe Not detected for Campylobacter group, Salmonella species, Shigella species, Vibrio Group, Yersinia enterocolitica, EHEC (Shiga Toxin 1, Shiga Toxin 2), Norovirus Gl/Gll, and Rotavirus A. Other common stool pathogens are not detected on this panel include: Aeromonas/Plesiomonas or parasites. Order testing for these organisms separately if suspected. This is an amplified DNA test which makes it both specific and sensitive. CAMPYLOBACTER Not Detected Norovirus Not Detected Rotavirus Not Detected Salmonella Not Detected Shiga Toxin Not Detected Shigella sp. Not Detected VIBRIO Not Detected Yersinia Not Detected Normal [facility] Comment on above: Performed By: #### M 600.5000, M100.637, L3600.5400 #### [facility] [address] [place], [address] CORTISOL SERUMon 05-27-2024 CORTISOL 8.90 ug/dL Normal 3.44-22.45 [facility] Comment on above: Order Comment: Order Date: 05/27/24 Order Info: 2161-05 - CREATU Result Comment: Adul t (AM) 5.27 - 22.45 ug/dL Adult (PM) 3.44 - 16.76 ug/dL Please note revised CORTISOL reference range effective 2019. Performed By: #### L 3100.1949, L502.000 #### [facility] [address] [place], [address] Comprehensive Metabolic Prof ilon 05-27-2024 Albumin [Mass/Vol] 2.8 g/dL Low 3.2-5.0 [facility] Comment on above: Order Comment: Order Date: 05/27/24 Order Info: 2161-8 - CREATU Performed By: #### L 3100.1949, L502.000 #### [facility] [address] [place], [address] Albumin/Globulin [Mass ratio] 0.6 {ratio} Low 0.9-2.4 [facility] Comment on above: Order Comment: Order Date: 05/27/24 Order Info: 2161-8 - CREATU Performed By: #### L 3100.1949, L502.000 #### [facility] [address] [place], [address] ALK P 138 U/L High 45-117 [facility] Comment on above: Order Comment: Order Date: 05/27/24 Order Info: 2161-8 - CREATU Performed By: #### L 3100.1949, L502.000 #### [facility] [address] [place], [address] ALT [Catalytic activity/Vol] 18 U/L Normal 13-56 [facility] Comment on above: Order Comment: Order Date: 05/27/24 Order Info: 2161-8 - CREATU Performed By: #### L 3100.1949, L502.000 #### [facility] [address] [place], [address] AST [Catalytic activity/Vol] 20 U/L Normal 15-37 [facility] Comment on above: Order Comment: Order Date: 05/27/24 Order Info: 2161-8 - CREATU Performed By: #### L 3100.1949, L502.000 #### [facility] [address] [place], [address] Bilirubin [Mass/Vol] 0.20 mg/dL Normal 0.20-1.00 [facility] Comment on above: Order Comment: Order Date: 05/27/24 Order Info: 2161-8 - CREATU Result Comment: For patients on eltrombopag therapy, use of Dimension [place] TBIL is not recommended. Performed By: #### L 3100.1949, L502.000 #### [facility] [address] [place], [address] BUN/CRE 15.0 RATIO Normal 10-20 [facility] Comment on above: Order Comment: Order Date: 05/27/24 Order Info: 2161-8 - CREATU Performed By: #### L 3100.1949, L502.000 #### [facility] [address] [place], [address] CA,Total 9.2 mg/dL Normal 8.5-10.1 [facility] Comment on above: Order Comment: Order Date: 05/27/24 Order Info: 2161-8 - CREATU Performed By: #### L 3100.1949, L502.000 #### [facility] [address] [place], [address] Chloride [Moles/Vol] 107 mmol/L Normal 98-107 [facility] Comment on above: Order Comment: Order Date: 05/27/24 Order Info: 2161-8 - CREATU Performed By: #### L 3100.1949, L502.000 #### [facility] [address] [place], [address] CO2 [Moles/Vol] 24.0 mmol/L Normal 21.0-32.0 [facility] Comment on above: Order Comment: Order Date: 05/27/24 Order Info: 2161-8 - CREATU Performed By: #### L 3100.1949, L502.000 #### [facility] [address] [place], [place], [address] Creatinine [Mass/Vol] 0.47 mg/dL Low 0.55-1.02 [facility] Comment on above: Order Comment: Order Date: 05/27/24 Order Info: 2161-05 - CREATU Result Comment: The validity of the calculated GFR GFRAA in patients over 70 years has not been determined. Clinical correlation is essential. Performed By: #### L 3100.1949, L502.000 #### [facility] [address] [place], [place], [address] EST GFR - AA 208 mL/min Normal >60 [facility] Comment on above: Order Comment: Order Date: 05/27/24 Order Info: 2161-05 - CREATU Result Comment: Afri can [place] GFR Calc Performed By: #### L 3100.1949, L502.000 #### [facility] [address] [place], [address] GAP 8 Normal 5-15 [facility] Comment on above: Order Comment: Order Date: 05/27/24 Order Info: 2161-05AT Performed By: #### L 3100.1949, L502.000 #### [facility] [address] [place], [address] GFR/1.73 sq M.predicted among non-blacks MDRD (S/P/Bld) [Vol rate/Area] 172 mL/min/{1.73_m2} Normal >60 [facility] Comment on above: Order Comment: Order Date: 05/27/24 Order Info: 2161-05ATU Result Comment: Non- GFR Calc Performed By: #### L 3100.1949, L502.000 #### [facility] [address] [place], [address] Globulin (S) [Mass/Vol] 4.4 g/dL High 2.2-4.2 [facility] Comment on above: Order Comment: Order Date: 05/27/24 Order Info: 2160-8 - CREATU Performed By: #### L 3100.1949, L502.000 #### [facility] [address] [place], [address] Glucose [Mass/Vol] 160 mg/dL High 74-106 [facility] Comment on above: Order Comment: Order Date: 05/27/24 Order Info: 2161-8 - CREATU Result Comment: Fast ing Glucose result greater than or equal to 126 mg/dL suggests DIABETES MELLITUS per A.D.A. criteria. Performed By: #### L 3100.1949, L502.000 #### [facility] [address] [place], [address] Potassium [Moles/Vol] 3.7 mmol/L Normal 3.5-5.1 [facility] Comment on above: Order Comment: Order Date: 05/27/24 Order Info: 2160-8 - CREATU Performed By: #### L 3100.1949, L502.000 #### [facility] [address] [place], [address] Sodium [Moles/Vol] 139 mmol/L Normal 136-145 [facility] Comment on above: Order Comment: Order Date: 05/27/24 Order Info: 2160-8 - CREATU Performed By: #### L 0.1949, L502.000 #### [facility] [address] [place], [address] T PROT 7.2 g/dL Normal 6.4-8.2 [facility] Comment on above: Order Comment: Order Date: 05/27/24 Order Info: 216-8 - CREATU Performed By: #### L 3100.1949, L502.000 #### [facility] [address] [place], [address] Urea nitrogen [Mass/Vol] 7 mg/dL Normal 7-18 [facility] Comment on above: Order Comment: Order Date: 05/27/24 Order Info: 2168 - CREATU Performed By: #### L 3100.1950, L502.000 #### [facility] [address] [place], [place], [address] Thyroid Stim Hormone (TSH)on 05-27-2024 TSH 3.12 uIU/mL Normal 0.358-3.74 [facility] Comment on above: Order Comment: Order Date: 05/27/24 Order Info: 8 - CREATU Performed By: #### L 3100.1950, L502.000 #### [facility] [address] [place], [place], [address] B-HYDROXYBUTYRATEon 05-21-20 24 Beta hydroxybutyrate [Moles/Vol] 0.50 mmol/L High <0.28 [facility] Comment on above: Order Comment: Speci men Type: BLOOD SPECIMENOrdering Facility: [facility] Address: [address] [place] [address] Performed By: #### B HB ####[facility] [id number] [place] [address] [place] Basic metabolic 2000 panelon 05-21-2024 Anion gap [Moles/Vol] 23 mmol/L High 8-15 [facility] Comment on above: Order Comment: Speci men Type: BLOOD SPECIMEN Ordering Facility: [facility] Address: [address] [place] [address] Performed By: #### 3 040-3, 28525-6, 77120-1 #### [facility] CLIA [id number] [address] STATES OF [facility] Calcium [Mass/Vol] 8.9 mg/dL Normal 8.5-10.2 [facility] Comment on above: Order Comment: Speci men Type: BLOOD SPECIMEN Ordering Facility: [facility] Address: [address] [place] [address] Performed By: #### 3 040-3, 85968-8, 91039-4 #### [facility] CLIA [id number] [address] [place] Chloride [Moles/Vol] 94 mmol/L Low 98-107 [facility] Comment on above: Order Comment: Speci men Type: BLOOD SPECIMEN [facility]ing Facility[facility] Address: [address] [place] [address] Performed By: #### 3 040-3, 23521-5, 78010-2 #### [facility] CLIA [id number] [address] OF [facility] CO2 [Moles/Vol] 15 mmol/L Low 22-30 [facility] Comment on above: Order Comment: Speci men Type: BLOOD SPECIMEN [facility]ing [facility] Address: [address] [place] [address] Performed By: #### 3 040-3, 35677-5, 86195-0 #### [facility] CLIA [id number] [address] OF [facility] Creatinine [Mass/Vol] 0.46 mg/dL Low 0.58-0.96 [facility] Comment on above: Order Comment: Speci men Type: BLOOD SPECIMEN [facility]ing Facility: [facility] Address: [address] [place] [address] Performed By: #### 3 040-3, 31029-0, 34887-4 #### [facility] CLIA [id number] [address] Creatinine and Glomerular filtration rate.predicted panel (S/P/Bld) 136 mL/min/1.73m??? Normal >=60 [facility] Comment on above: Order Comment: Speci men Type: BLOOD SPECIMEN [facility] Address: [address] [place] [address] Result Comment: Steffi mated Glomerular Filtration Rate (eGFR) is calculated using the 2020 CKD-EPI creatinine equation. This equation utilizes serum creatinine, sex, and age as parameters. The creatinine assay has traceable calibration to isotope dilution-mass spectrometry. Refer to KDIGO guidelines for clinical interpretation. In patients with unstable renal function, e.g. those with acute kidney injury, the eGFR may not accurately reflect actual GFR. Performed By: #### 3 040-3, 01625-7, 66359-1 #### [facility] CLIA [id number] 1 [place] [address] [place] Glucose [Mass/Vol] 502 mg/dL High 74-99 [facility] Comment on above: Order Comment: Reginald vieira Type: BLOOD SPECIMEN [facility]: [facility] Address: [address] [place] [address] Result Comment: The [place] Diabetes Association (ADA) provides guidance for cutoff values for fasting glucose and random glucose. The ADA defines fasting as no caloric intake for at least 8 hours. Fasting plasma glucose results between 100 to 125 mg/dL indicate increased risk for diabetes (prediabetes). Fasting plasma glucose results greater than or equal to 126 mg/dL meet the criteria for diagnosis of diabetes. In the absence of unequivocal hyperglycemia, results should be confirmed by repeat testing. In a patient with classic symptoms of hyperglycemia or hyperglycemic crisis, random plasma glucose results greater than or equal to 200 mg/dL meet the criteria for diagnosis of diabetes. Reference: Standards of Medical Care in Diabetes 2016, [place] Diabetes Association. Diabetes Care. 2016.39(Suppl 1). Performed By: #### 3 040-3, 92487-0, 29942-9 #### [facility] CLIA [id number] [address] [place] [address] [place] Potassium [Moles/Vol] 3.9 mmol/L Normal 3.7-5.1 [facility] Comment on above: Order Comment: Reginald vieira Type: BLOOD SPECIMEN [facility] Address: [address] [place] [address] Performed By: #### 3 040-3, 61143-8, 50647-2 #### [facility] CLIA [id number] [address] [place] [address] [place] Sodium [Moles/Vol] 132 mmol/L Low 136-144 [facility] Comment on above: Order Comment: Reginald vieira Type: BLOOD SPECIMEN Ordering Facility: [facility] Address: [address] [place] [address] Performed By: #### 3 040-3, 59956-8, 20949-2 #### [facility] CLIA [id number] [address] STATES [facility] Urea nitrogen [Mass/Vol] 8 mg/dL Normal 7-21 [facility] Comment on above: Order Comment: Speci men Type: BLOOD SPECIMEN [facility] Address: [address] [place] [address] Performed By: #### 3 040-3, 52679-7, 94231-0 #### [facility] CLIA [id number] [address] CBC W Auto Differential pane l (Bld)on 05-21-2024 Basophils (Bld) [#/Vol] 0.10 10*3/uL Normal <0.11 [facility] Comment on above: Order Comment: Speci men Type: BLOOD SPECIMENOrdering Facility: [facility] Address: [address] [place] [address] Performed By: #### 5 7021-8 ####[facility]ORYCLIA [id number] [address] Basophils/100 WBC (Bld) 1.2 % Normal [facility] Comment on above: Order Comment: Speci men Type: BLOOD SPECIMENOrdering Facility: [facility] Address: [address] [place] [address] Performed By: #### 5 7021-8 ####[facility]ORYCLIA [id number] [address] Differential cell count method Nom (Bld) Auto Normal [facility] Comment on above: Order Comment: Speci men Type: BLOOD SPECIMENOrdering Facility: [facility] Address: [address] [place] [address] Performed By: #### 5 7021-8 ####[facility] [id number] [address] [place] Eosinophils (Bld) [#/Vol] 0.08 10*3/uL Normal <0.46 [facility] Comment on above: Order Comment: Speci men Type: BLOOD SPECIMENOrdering Facility: [facility] Address: [facility] [place] [address] Performed By: #### 5 7021-8 ####[facility]ORYCLIA [id number] [address] [place] Eosinophils/100 WBC (Bld) 0.9 % Normal [facility] Comment on above: Order Comment: Speci men Type: BLOOD SPECIMENOrdering Facility: [facility] Address: [address] [place] [address] Performed By: #### 5 7021-8 ####[facility]ORYCLIA [id number] [address] [place] Erythrocyte distribution width (RBC) [Ratio] 12.1 % Normal 11.5-15.0 [facility] Comment on above: Order Comment: Speci men Type: BLOOD SPECIMENOrdering Facility: [facility] Address: [address] [place] [address] Performed By: #### 5 7021-8 ####[facility]ORYCLIA [id number] [address] [place] Hematocrit (Bld) [Volume fraction] 36.3 % Normal 36.0-46.0 [facility] Comment on above: Order Comment: Speci men Type: BLOOD SPECIMENOrdering Facility: [facility] Address: [address] [place] [address] Performed By: #### 5 7021-8 ####[facility] [id number] [address] [place] Hemoglobin (Bld) [Mass/Vol] 12.4 g/dL Normal 11.5-15.5 [facility] Comment on above: Order Comment: Speci men Type: BLOOD SPECIMENOrdering Facility: [facility] Address: [address] [place] [address] Performed By: #### 5 7021-8 ####[facility] [id number] [address] Immature granulocytes (Bld) [#/Vol] 0.04 10*3/uL Normal <0.10 [facility] Comment on above: Order Comment: Speci men Type: BLOOD SPECIMENOrdering Facility: [facility] Address: [address] [place] [address] Performed By: #### 5 7021-8 ####[facility]ORYCLIA [id number] [address] Immature granulocytes/100 WBC (Bld) 0.5 % Normal [facility] Comment on above: Order Comment: Speci men Type: BLOOD SPECIMENOrdering Facility: [facility] Address: [address] [place] [address] Performed By: #### 5 7021-8 ####[facility]ORYCLIA [id number] [address] [place] Lymphocytes (Bld) [#/Vol] 1.91 10*3/uL Normal 1.00-4.00 [facility] Comment on above: Order Comment: Speci men Type: BLOOD SPECIMENOrdering Facility: [facility] Address: [address] [place] [address] Performed By: #### 5 7021-8 ####[facility]ORYCLIA [id number] [address] Lymphocytes/100 WBC (Bld) 22.1 % Normal [facility] Comment on above: Order Comment: Speci men Type: BLOOD SPECIMENOrdering Facility: [facility] Address: [address] [place] [address] Performed By: #### 5 7021-8 ####[facility]ATORYCLIA [id number] [address] [place] MCH (RBC) [Entitic mass] 29.0 pg Normal 26.0-34.0 [facility] Comment on above: Order Comment: Speci men Type: BLOOD SPECIMENOrdering Facility: [facility] Address: [address] [place] [address] Performed By: #### 5 7021-8 ####[facility] LABORATORYCLIA [id number] [address] STATES OF [facility] MCHC (RBC) [Mass/Vol] 34.2 g/dL Normal 30.5-36.0 [facility] Comment on above: Order Comment: Speci men Type: BLOOD SPECIMENOrdering Facility: [facility] Address: [address] [place] [address] Performed By: #### 5 7021-8 ####[facility] LABORATORYCLIA [id number] [address] OF [facility] MCV (RBC) [Entitic vol] 84.8 fL Normal 80.0-100.0 [facility] Comment on above: Order Comment: Speci men Type: BLOOD SPECIMENOrdering Facility: [facility] Address: [address] [place] [address] Performed By: #### 5 7021-8 ####[facility] LABORATORYCLIA [id number] [address] OF [place] Monocytes (Bld) [#/Vol] 0.49 10*3/uL Normal <0.87 [facility] Comment on above: Order Comment: Speci men Type: BLOOD SPECIMENOrdering Facility: [facility] Address: [address] [place] [address] Performed By: #### 5 7021-8 ####[facility] LABORATORYCLIA [id number] [address] Monocytes/100 WBC (Bld) 5.7 % Normal [facility] Comment on above: Order Comment: Speci men Type: BLOOD SPECIMENOrdering Facility: [facility] Address: [address] [place] [address] Performed By: #### 5 7021-8 ####[facility] LABORATORYCLIA [id number] [address] STATES OF [place] Neutrophils (Bld) [#/Vol] 6.01 10*3/uL Normal 1.45-7.50 [facility] Comment on above: Order Comment: Speci men Type: BLOOD SPECIMENOrdering Facility: [facility] Address: [address] [place] [address] Performed By: #### 5 7021-8 ####[facility]ATORYCLIA [id number] [address] Neutrophils/100 WBC (Bld) 69.6 % Normal [facility] Comment on above: Order Comment: Speci men Type: BLOOD SPECIMENOrdering Facility: [facility] Address: [address] [place] [address] Performed By: #### 5 7021-8 ####[facility] LABORATORYCLIA [id number] [address] OF [place] Nucleated RBC (Bld) [#/Vol] 10*3/uL Normal <0.01 [facility] Comment on above: Order Comment: Speci men Type: BLOOD SPECIMENOrdering Facility: [facility] Address: [address] [place] [address] Performed By: #### 5 7021-8 ####[facility] LABORATORYCLIA [id number] [address] STATES OF [place] Nucleated RBC/100 WBC (Bld) [Ratio] 0.0 /100 WBC Normal [facility] Comment on above: Order Comment: Speci men Type: BLOOD SPECIMENOrdering Facility: [facility] Address: [address] [place] [address] Performed By: #### 5 7021-8 ####[facility] LABORATORYCLIA [id number] [address] [place] Platelet mean volume (Bld) [Entitic vol] 9.1 fL Normal 9.0-12.7 [facility] Comment on above: Order Comment: Speci men Type: BLOOD SPECIMENOrdering Facility: [facility] Address: [address] [place] [address] Performed By: #### 5 7021-8 ####[facility]ATORYCLIA [id number] [address] STATES [place] Platelets (Bld) [#/Vol] 367 10*3/uL Normal 150-400 [facility] Comment on above: Order Comment: Speci men Type: BLOOD SPECIMENOrdering Facility: [facility] Address: [address] [place] [address] Performed By: #### 5 7021-8 ####[facility] LABORATORYCLIA [id number] [place] [address] [place] RBC (Bld) [#/Vol] 4.28 10*6/uL Normal 3.90-5.20 [facility] Comment on above: Order Comment: Speci men Type: BLOOD SPECIMENOrdering Facility: [facility] Address: [address] [place] [address] Performed By: #### 5 7021-8 ####[facility] LABORATORYCLIA [id number] [address] STATES [place] WBC (Bld) [#/Vol] 8.63 10*3/uL Normal 3.70-11.00 [facility] Comment on above: Order Comment: Speci men Type: BLOOD SPECIMENOrdering Facility: [facility] Address: [address] [place] [address] Performed By: #### 5 7021-8 ####[facility] LABORATORYCLIA [id number] [address] OF [place] CT ABD/PEL W IVCONon 024 CT ABD/PEL W IVCON * * *Final Report* * * DATE OF EXAM: May 21 2024 8:20PM [facility] 0530 - CT ABD/PEL W IVCON / PROCEDURE REASON: Abdominal pain, acute, nonlocalized * * * * Physician Interpretation * * * * EXAMINATION: CT ABDOMEN AND PELVIS WITH IV CONTRAST CLINICAL HISTORY: Abdominal pain TECHNIQUE: CT of the abdomen and pelvis was performed using standard technique, scanning from just above the dome of the diaphragm to the symphysis pubis. MQ: CTAP_3 Contrast: IV: 100 ml of Omnipaque 350 : ml of CT Radiation dose: Integrated Dose-length product (DLP) for this visit = 471 mGy*cm. CT Dose Reduction Employed: Automated exposure control(AEC) and iterative recon COMPARISON: 02/13/2023. RESULT: Lung bases: The visualized lung bases are clear. Liver: Normal liver parenchyma is noted. No focal hepatic mass is seen. The portal vein and hepatic veins are within normal limits. Bile ducts: No intra or extrahepatic bile duct dilatation is noted. Gallbladder: The gallbladder is unremarkable without transmural inflammation seen to suggest acute cholecystitis. Spleen: The spleen is of normal size and enhancement Pancreas: The pancreatic parenchyma is of normal enhancement without a discrete mass identified. No peripancreatic fluid or fat stranding is appreciated. The pancreatic duct is of normal caliber. Adrenal glands :The adrenal glands are normal in morphology. No discrete nodule is identified. Kidneys: Normal enhancement of the renal parenchyma is noted. No solid mass is identified. No discrete stone is identified. There is no evidence of hydronephrosis or hydroureter. Abdominal aorta: The abdominal aorta is of normal caliber without evidence of dissection. A normal-appearing aortic bifurcation is present. Lymphadenopathy: There is no intra-abdominal, retroperitoneal, or inguinal lymphadenopathy. Ascites: No fluid collection is seen in the abdomen or pelvis. Urinary bladder: The urinary bladder is unremarkable without an intraluminal filling defect. No perivesical fat stranding is appreciated. Bowel: No dilated loops of small bowel are seen to suggest bowel obstruction. Appendix: The appendix is of normal caliber without periappendiceal inflammatory changes. Osseous structures: No osteolytic or osteoblastic bone lesion is identified. No acute osseous abnormality is seen. IMPRESSION: 1. No evidence of significant intra-abdominal or intrapelvic pathology. [employer] System Operator: [facility]ITALOj Transcribe Date/Time: May 21 2024 8:26P Dictated by : ROJAS FALCON MD This examination was interpreted and the report reviewed and electronically signed by: ROJAS FALCON MD on May 21 2024 8:32PM EST [id number] Normal [facility] ED NOTEon 05-21-2024 ED NOTE HNO ID: [id number] Author: YONATAN SERNA RN Service: ? Author Type: Registered Nurse Type: ED Notes Filed: 05/21/2024 21:31 Note Text: Waiting for doctors note Normal [facility] ED NOTE HNO ID: [id number] Author: YONATAN SERNA RN Service: ? Author Type: Registered Nurse Type: ED Notes Filed: 05/21/2024 19:44 Note Text: CT aware pt ready Normal [facility] ED PROV NOTEon 05-21-2024 ED PROV NOTE HNO ID: [id number] Author: TRUONG CASTILLO MD Service: Emergency Medicine Author Type: Physician Type: ED Provider Notes Filed: 05/21/2024 21:02 Note Text: Attending Note: I performed a history and physical examination of the patient and discussed the management with the resident. I reviewed the resident's note and agree with the documented findings and plan of care. HPI: 24-year-old female with a history of type 1 diabetes, recently diagnosed gastroparesis, presents with left upper quadrant pain. In my interview with the patient she states that she always has abdominal pain. She is here for left upper quadrant pain today, she has had nausea vomiting and diarrhea. Occasional blood with the diarrhea. She has had this for approximately 3 days. Patient's vital signs showed initially that she had a tachycardia, otherwise were within normal limits. Patient appears to be in no significant distress. Heart has a tachycardic rate regular rhythm no murmurs or gallops normal S1-S2. Patient's lungs are clear bilaterally. On auscultation there are no rales, rhonchi, crackles, or wheezes appreciated bilaterally. There are no accessory muscles of respiration in use. Patient appears to be in no acute respiratory distress. Chest rises even bilaterally. Abdomen is soft, nondistended, has normal bowel sounds, has tenderness to palpation moderately in the left upper quadrant, no rebound tenderness no guarding no rigidity, no hepatosplenomegaly or masses. Patient is a and O ?3. No focal neurologic deficits appreciated. Patient had 5/5 strength in all 4 extremities. Patient had normal sensation throughout. The patient had normal coordination as tested via finger to nose and heel to harrison testing. Patient's reflexes were intact throughout. PE: BP 153/90 Pulse 115 Temp (Src) 98.4 (Oral) Resp 17 Ht 5' 1 (1.55m) Wt 159 lb (72.1kg) SpO2 99% LMP 02/03/2023 BMI 30.06 kg/(m2). GEN: Alert, no distress HEENT: Normal cephalic atraumatic, MARVIN, Moist mucus membranes RESP: Clear to auscultation, no distress CV: See above ABD: See above MUSC: No edema, distal pulses intact NEURO: Alert, oriented, no appreciable deficits, moves all extremities spontaneously MDM: Patient was given IV fluids, had an initial lactate of 6.1, lipase is 15 metabolic panel initial glucose of 502, creatinine 0.46 sodium of 132 chloride of 94 anion gap of 23, urinalysis shows no obvious evidence of infection, beta hydroxybutyrate 0.50 hepatic panel is unremarkable other than alkaline phosphatase of 154, CBC shows no leukocytosis no abnormalities. The patient did have a CT abdomen pelvis to rule out any pathology and was negative. Patient's heart rate has come down nicely, we did repeat glucose and the repeat glucose came back at 304, lactate came back at 1.4. With these improvements, patient is going to be discharged after p.o. challenge with instructions to follow-up with her primary care physician and electrocardiograph repairer. TRUONG CASTILLO 05/21/242101 Normal [facility] ED PROV NOTE HNO ID: [id number] Author: TRUONG CASTILLO MD Service: Emergency Medicine Author Type: Nurse Practitioner Type: ED Provider Notes Filed: 05/27/2024 15:01 Note Text: -------- Attestation signed by Truong Castillo MD at 05/27/2024 3:01 PM Attending Note I have personally performed a face to face assessment of the patient and have reviewed the JACOBO note. I performed a substantive portion of the visit including all aspects of the following. My hunt findings include:please see notes Signature: Truong Castillo MD Date: 05/27/2024 Time: 3:01 PM -------- ED Provider Note Patient Name: Santiago Jacobsen : 2000 SERVICE DATE: 05/21/24 History Patient presents with: Abdominal Pain: Pt c/o LUQ pain x3 days; +n/v. Pain worse after eating. Denies fever, chills, dysuria. +diarrhea. Patient is a 24-year-old female presented to ED with complaints of left upper quadrant abdominal pain for the past several days. She has a history of gastroparesis. She has had some intermittent nausea and vomiting. She admits that she always abdominal pain this is a bit worse. She states her sugars have been rather well-controlled until today they have been higher. She is not any urinary changes. No respiratory symptoms. She is compliant with all her medications. PAST MEDICAL HISTORY 04/2022: DKA (diabetic ketoacidosis) ([facility]) Comment: 05/2022 No date: Hypertension No date: T1DM (type 1 diabetes mellitus) ([facility]) No past surgical history on file. No family history on file. Social History Tobacco Use Smoking status: Former Types: Cigarettes Smokeless tobacco: Never Vaping Use Vaping Use: Never used Substance and Sexual Activity Alcohol use: Not Currently Drug use: Never Sexual activity: Yes ALLERGIES Allergen Reactions Penicillins Rash, Vomiting Review of Systems All other systems reviewed and are negative. Physical Exam Vitals BP Pulse Temp Temp src Resp SpO2 Weight Height 05/21/24 1500 05/21/24 1500 05/21/24 1500 05/21/24 1500 05/21/24 1500 05/21/24 1522 05/21/24 1522 05/21/24 1522 (!) 164/138 (!) 123 36.9 ?C (98.4 ?F) Oral 20 98 % 72.1 kg (159 lb) 1.549 m (5' 1) Physical Exam Vitals and nursing note reviewed. Constitutional: Appearance: Normal appearance. She is well-developed. She is obese. HENT: Head: Normocephalic and atraumatic. Nose: Nose normal. Mouth/Throat: Mouth: Mucous membranes are moist. Eyes: General: No scleral icterus. Cardiovascular: Rate and Rhythm: Normal rate. Pulmonary: Effort: Pulmonary effort is normal. No respiratory distress. Abdominal: General: Abdomen is flat. Bowel sounds are normal. There is no distension. Palpations: Abdomen is soft. Tenderness: There is abdominal tenderness (luq). There is no right CVA tenderness, left CVA tenderness, guarding or rebound. Musculoskeletal: General: Normal range of motion. Cervical back: Normal range of motion. Skin: General: Skin is warm. Neurological: Mental Status: She is alert and oriented to person, place, and time. Psychiatric: Mood and Affect: Mood normal. Diagnostic Testing ED Labs Ordered and Reviewed BASIC METABOLIC PANEL - Abnormal; Notable for the following components: Result Value Ref Range Glucose 502 (*) 74 - 99 mg/dL Creatinine 0.46 (*) 0.58 - 0.96 mg/dL Sodium 132 (*) 136 - 144 mmol/L Chloride 94 (*) 98 - 107 mmol/L CO2 15 (*) 22 - 30 mmol/L Anion Gap 23 (*) 8 - 15 mmol/L All other components within normal limits LIPASE - Abnormal; Notable for the following components: Lipase 15 (*) 16 - 61 U/L All other components within normal limits URINALYSIS WITH MICROSCOPIC, REFLEX CULTURE - Abnormal; Notable for the following components: Glucose, Urine 4+ (*) Trace, Negative Ketones, Urine 2+ (*) Negative, Trace Hemoglobin/Blood,Ur 1+ (*) Negative, Trace RBC, Urine 3-5 /HPF (*) 0-3 /HPF Bacteria Rare (*) None Seen /HPF Non-Squamous Epithelial Cells Few (*) None Seen /HPF Budding Yeast Few (*) None Seen /HPF All other components within normal limits HEPATIC FUNCTION PNL - Abnormal; Notable for the following components: Albumin 3.5 (*) 3.9 - 4.9 g/dL Alkaline Phosphatase 154 (*) 34 - 123 U/L All other components within normal limits B-HYDROXYBUTYRATE - Abnormal; Notable for the following components: B-Hydroxybutyrate 0.50 (*) <0.28 mmol/L All other components within normal limits VENOUS BLOOD GAS, ED-POC(AK) - Abnormal; Notable for the following components: pCO2,Venous(POCT) 33.6 (*) 40.6 - 60.0 mmHg pO2,Venous(POCT) 49.0 (*) 15.9 - 37.5 mmHg HCO3,Venous(POCT) 19.5 (*) 21.0 - 30.0 mmol/L Total CO2 (POCT) 17.7 (*) 21.0 - 28.0 mmol/L Base Excess,Venous(POCT) -4.3 (*) -3.0 - 3.0 mmol/L sO2 (POCT) 84.8 (*) 18.0 - 74.8 % O2Hb,Venous(POCT) 82.7 (*) 18.2 - 66.4 % COHb,Venous (more content not included)... Normal [facility] ED Triage Noteon 05-21-2024 ED Triage Note HNO ID: [id number] Author: GEORGIANA VELASQUEZ APRN.CNP Service: ? Author Type: Nurse Practitioner Type: ED Triage Notes Filed: 05/21/2024 15:27 Note Text: ED TRIAGE PROVIDER NOTE Patient Name: Santiago Jacobsen Service Date: 05/21/24 BRIEF HPI: This is a 24 year old female who presents to the ED with: LUQ pain, vomiting and diarrhea with blood. Onset 3 days ago, hx of gastroparesis. BRIEF EXAM: NAD Awake and Alert Non labored breathing No focal neurological deficits INITIAL WORKUP AND DECISION MAKING: Orders Placed This Encounter BASIC METABOLIC PNL CBC + DIFF LIPASE BLD Urinalysis w Microscopic, reflex Culture HCG QUALITATIVE URINE Hepatic Function Panel SIGNATURE: Georgiana Velasquez APRN.CNP Normal [facility] HCG Preg Ur Qlon 05-21-2024 HCG ( test) Ql (U) Negative Normal Negative [facility] Comment on above: Order Comment: Speci men Type: URINE SPECIMEN [facility] Address: [address] [place] [address] [place] [address] Result Comment: This test is intended to aid in the early detection of . Very dilute urine samples, as indicated by a low specific gravity, may not contain pharmacy sales representative levels of hCG. This test detects intact hCG only. This test does not reliably detect hCG degradation products, including free-beta subunit and beta-core fragment. Therefore, this test may show reduced reactivity in urine after 8 weeks gestation. A number of conditions other than , including trophoblastic disease and certain non-trophoblastic neoplasms cause elevated levels of hCG. As with any assay employing mouse antibodies, the possibility exists for interference by human anti-mouse antibodies (HAMA) in the specimen. The test provides a presumptive diagnosis for . Performed By: #### 2 106-3 #### [facility] CLIA [id number] [address] Hepatic function 2000 panelo n 05-21-2024 Albumin [Mass/Vol] 3.5 g/dL Low 3.9-4.9 [facility] Comment on above: Order Comment: Speci men Type: BLOOD SPECIMEN [facility] Address: [address] [place] [address] Performed By: #### 3 040-3, 29435-5, 80033-2 #### [facility] CLIA [id number] [address] OF [facility] ALP [Catalytic activity/Vol] 154 U/L High 34-123 [facility] Comment on above: Order Comment: Speci men Type: BLOOD SPECIMEN [facility] Address: [address] [place] [address] Performed By: #### 3 040-3, 01012-7, 31884-3 #### [facility] CLIA [id number] [address] ALT With P-5'-P [Catalytic activity/Vol] 13 U/L Normal 7-38 [facility] Comment on above: Order Comment: Speci men Type: BLOOD SPECIMEN [facility] Address: [address] [place] [address] Performed By: #### 3 040-3, 75811-2, 81188-3 #### [facility] CLIA [id number] [address] AST With P-5'-P [Catalytic activity/Vol] 13 U/L Normal 13-35 [facility] Comment on above: Order Comment: Speci men Type: BLOOD SPECIMEN [facility] Address: [address] [place] [address] Performed By: #### 3 040-3, 25976-7, 09721-5 #### [facility] CLIA [id number] [address] Bilirubin [Mass/Vol] 0.4 mg/dL Normal 0.2-1.3 [facility] Comment on above: Order Comment: Speci men Type: BLOOD SPECIMEN [facility] Address: [address] [place] [address] Performed By: #### 3 040-3, 95721-7, 82658-9 #### [facility] CLIA [id number] [address] Bilirubin.conjugated [Mass/Vol] mg/dL Normal <0.2 [facility] Comment on above: Order Comment: Speci men Type: BLOOD SPECIMEN [facility] Address: [address] [place] [address] Performed By: #### 3 040-3, 25697-9, 27604-5 #### [facility] CLIA [id number] [address] Protein [Mass/Vol] 6.9 g/dL Normal 6.3-8.0 [facility] Comment on above: Order Comment: Speci men Type: BLOOD SPECIMEN [facility] Address: [address] [place] [address] Performed By: #### 3 040-3, 70139-0, 69094-7 #### [facility] CLIA [id number] [address] Lipase SerPl-cCncon 05-21-20 24 Lipase [Catalytic activity/Vol] 15 U/L Low 16-61 [facility] Comment on above: Order Comment: Speci men Type: BLOOD SPECIMENOrdering Facility: [facility] Address: [address] [place] [address] Performed By: #### 3 040-3, 56338-9, 50238-1 ####[facility]ATORYCLIA [id number] [address] [place] Urinalysis complete panel (U )on 05-21-2024 Bacteria LM.HPF (Urine sed) [#/Area] Rare Abnormal None Seen [facility] Comment on above: Order Comment: Speci men Type: URINE SPECIMEN [facility] Address: [address] [place] [address] Performed By: #### 2 4356-8 #### [facility] CLIA [id number] [address] STATES [place] Bilirubin Ql (U) Negative Normal Negative [facility] Comment on above: Order Comment: Speci men Type: URINE SPECIMEN [facility] Address: [address] [place] [address] Performed By: #### 2 4356-8 #### [facility] CLIA [id number] [address] [place] Clarity (Unsp spec) Clear Normal Clear [facility] Comment on above: Order Comment: Speci men Type: URINE SPECIMEN [facility] Address: [address] [place] [address] Performed By: #### 2 4356-8 #### [facility] CLIA [id number] [address] OF [facility] Color (U) Colorless Normal yellow [facility] Comment on above: Order Comment: Speci men Type: URINE SPECIMEN [facility] Address: [address] [place] [address] Performed By: #### 2 4356-8 #### [facility] CLIA [id number] [address] Epithelial cells LM.HPF (Urine sed) [#/Area] Few Normal [facility] Comment on above: Order Comment: Speci men Type: URINE SPECIMEN [facility] Address: [address] [place] [address] Result Comment: Few Performed By: #### 2 4356-8 #### [facility] CLIA [id number] [address] [place] Glucose Test strip (U) [Mass/Vol] 4+ Abnormal Trace, Negative [facility] Comment on above: Order Comment: Speci men Type: URINE SPECIMEN [facility] Address: [address] [place] [address] Performed By: #### 2 4356-8 #### [facility] CLIA [id number] [address] [place] Hemoglobin Ql (U) 1+ Abnormal Negative, Trace [facility] Comment on above: Order Comment: Speci men Type: URINE SPECIMEN [facility] Address: [address] [place] [address] Performed By: #### 2 4356-8 #### [facility] CLIA [id number] [address] [place] Ketones Ql (U) 2+ Abnormal Negative, Trace [facility] Comment on above: Order Comment: Speci men Type: URINE SPECIMEN [facility] Address: [address] [place] [address] Performed By: #### 2 4356-8 #### [facility] CLIA [id number] [address] [place] Leukocyte esterase Test strip Ql (U) 25 Carmen/uL Normal Negative, 25 Carmen/uL [facility] Comment on above: Order Comment: Speci men Type: URINE SPECIMEN [facility] Address: [address] [place] [address] Performed By: #### 2 4356-8 #### [facility] CLIA [id number] [address] [place] Nitrite Ql (U) Negative Normal Negative [facility] Comment on above: Order Comment: Speci men Type: URINE SPECIMEN Ordering [facility] Address: [address] [place] [address] Performed By: #### 2 4356-8 #### [facility] CLIA [id number] [address] [place] pH (U) 5.5 [pH] Normal 5.0-8.0 [facility] Comment on above: Order Comment: Speci men Type: URINE SPECIMEN Ordering Facility: [facility] Address: [address] [place] [address] Performed By: #### 2 4356-8 #### [facility] CLIA [id number] [address] Protein (U) [Mass/Vol] Negative Normal Trace , Negative [facility] Comment on above: Order Comment: Speci men Type: URINE SPECIMEN Ordering Facility[facility] Address: [address] [place] [address] Performed By: #### 2 4356-8 #### [facility] CLIA [id number] [address] RBC LM.HPF (Urine sed) [#/Area] 3-5 /HPF Abnormal 0-3 /HPF [facility] Comment on above: Order Comment: Speci men Type: URINE SPECIMEN Ordering Facility: [facility] Address: [address] [place] [address] Performed By: #### 2 4356-8 #### [facility] CLIA [id number] [address] Specific gravity (U) [Rel density] 1.024 Normal 1.005-1.030 [facility] Comment on above: Order Comment: Speci men Type: URINE SPECIMEN Ordering Facility: [facility] Address: [address] [place] [address] Performed By: #### 2 4356-8 #### [facility] CLIA [id number] [address] Urobilinogen Ql (U) Normal Normal Normal [facility] Comment on above: Order Comment: Speci men Type: URINE SPECIMEN Ordering Facility: [facility] Address: [address] [place] [address] Performed By: #### 2 4356-8 #### [facility] CLIA [id number] [address] WBC LM.HPF (Urine sed) [#/Area] 0-5 /HPF Normal 0-5 /HPF [facility] Comment on above: Order Comment: Speci men Type: URINE SPECIMEN Ordering Facility: [facility] Address: [address] [place] [address] Performed By: #### 2 4356-8 #### [facility] CLIA [id number] [address] Yeast.budding LM.HPF (Urine sed) [#/Area] Few Abnormal None Seen [facility] Comment on above: Order Comment: Speci men Type: URINE SPECIMEN Ordering Facility: [facility] Address: [address] [place] [address] Performed By: #### 2 4356-8 #### [facility] CLIA [id number] [address] LABORATORYOrdered By: Elina Hale on 03-29-2024 HCG ( test) Ql Negative (03/29/24 8:01 AM) Normal AO Manual Urine SS test (u) int Not detected Invalid Interpretation Code AO Manual Urine SS PREGUon 03-29-2024 HCG ( test) Ql (U) Negative Normal [facility] [place] Comment on above: Performed By: #### P REGU #### [address] [address] test (u) int Not detected Invalid Interpretation Code [facility] [place] Comment on above: Performed By: #### P REGU #### [address] [address] Absolute lymphocyte countOrd ered By: Skylar Fong on 02-16-2024 Lymphocytes Auto (Unsp spec) [#/Vol] 2.10 10*3/uL 0.83-4.51 [facility] Automated lymphocyte count a s percentage of total leukocytesOrdered By: Skylar Fong on 02-16-2024 Lymphocytes/100 WBC Auto (Unsp spec) 19.6 % 19-41 [facility] Basophil percentageOrdered B y: Skylar Fong on 02-16-2024 Basophils/100 WBC (Bld) 1.1 % 0-1 [facility] Bilirubin [Mass/Vol] 0.20 mg/dL 0.20-1.00 [facility] Comment on above: For patients on eltr ombopag therapy, use of Dimension [place] TBIL is not recommended. Chloride [Moles/Vol] 105 mmol/L 98-107 [facility] Eosinophils/100 WBC (Bld) 1.3 % 0-5 [facility] Glucose [Mass/Vol] 283 mg/dL 74-106 [facility] Comment on above: Glucose result great er than or equal to 200 mg/dLsuggests DIABETES MELLITUS per A.D.A. criteria. Hemoglobin (Bld) [Mass/Vol] 12.2 g/dL 12.0-15.0 [facility] Monocytes/100 WBC (Bld) 5.2 % 0-10 [facility] Neutrophils (Bld) [#/Vol] 7.6 10*3/uL 2.0-7.7 [facility] Neutrophils/100 WBC (Bld) 71.3 % 47-70 [facility] Potassium [Moles/Vol] 4.0 mmol/L 3.5-5.1 [facility] Protein [Mass/Vol] 7.4 g/dL 6.4-8.2 [facility] Sodium [Moles/Vol] 139 mmol/L 136-145 [facility] WBC (Bld) [#/Vol] 10.7 10*3/uL 4.4-11.0 [facility] Determination of erythrocyte mean corpuscular volume (MCV)Ordered By: Skylar Fong on 02-16-2024 MCV (RBC) [Entitic vol] 86.2 fL 81-99 [facility] Erythrocyte distribution wid th ratioOrdered By: Skylar Fong on 02-16-2024 Erythrocyte distribution width (RBC) [Ratio] 11.9 % 11.6-14.6 [facility] Erythrocyte distribution wid th standard deviationOrdered By: Skylar Fong on 02-16-2024 Erythrocyte distribution width (RBC) [Entitic vol] 37.2 fL 35.1-43.9 [facility] Hematocrit Auto (Bld) [Volum e fraction]Ordered By: Skylar Fong on 02-16-2024 Hematocrit (Bld) [Volume fraction] 37.4 % 37-47 [facility] Hemoglobin in reticulocytes (mass per reticulocyte)Ordered By: Skylar Fong on 02-16-2024 Hemoglobin (Reticulocytes) [Entitic mass] 31.0 pg 30-35 [facility] Immature granulocytes/100 WB C Auto (Bld)Ordered By: Skylar Fong on 02-16-2024 Immature granulocytes/100 WBC (Bld) 1.500 % 0.0-0.9 [facility] Comment on above: IG% - Immature Granu locytes (promyelocytes, myelocytes and metamyelocytes) > 1% indicates that a LEFT SHIFT is Present. Iron measurement (mass/mass) Ordered By: Skylar Fong on 02-16-2024 Iron (Unsp spec) [Mass/Mass] 39 ug/dL 50-170 [facility] Laboratory - Chemistry and C hemistry - challengeOrdered By: Skylar Fong on 02-16-2024 Albumin/Globulin [Mass ratio] 0.6 {ratio} 0.9-2.4 [facility] ALP [Catalytic activity/Vol] 151 U/L 45-117 [facility] ALT [Catalytic activity/Vol] 25 U/L 13-56 [facility] CO2 [Moles/Vol] 23.0 mmol/L 21.0-32.0 [facility] Cobalamin (Vitamin B12) [Mass/Vol] 341 pg/mL 211-911 [facility] Ferritin [Mass/Vol] 50 ng/mL 8-252 [facility] Globulin (S) [Mass/Vol] 4.7 g/dL 2.2-4.2 [facility] Magnesium [Mass/Vol] 1.7 mg/dL 1.6-2.6 [facility] Urea nitrogen/Creatinine [Mass ratio] 15.8 mg/mg 10-20 [facility] Laboratory - Hematology and Cell countsOrdered By: Skylar Fong on 02-16-2024 MCH (RBC) [Entitic mass] 28.1 pg 27.0-32.0 [facility] MCHC (RBC) [Mass/Vol] 32.6 g/dL 32-36 [facility] Nucleated RBC/100 WBC (Bld) [Ratio] 0 % 0-5 [facility] Platelet mean volume (Bld) [Entitic vol] 9.6 fL 6.2-12.0 [facility] Platelets (Bld) [#/Vol] 427 10*3/uL 150-450 [facility] No Panel InformationOrdered By: Skylar Fong on 02-16-2024 Estimated GFR (MDRD) Amer 147 mL/min >60 [facility] Comment on above: GFR Calc Estimated GFR (MDRD) Non-Af Amer 121 mL/min >60 [facility] Comment on above: Non- GFR Calc Folate 22.40 ng/mL 3.1-55.4 [facility] Comment on above: Slight Hemolysis, Re sult may be falsely increased. Immature Reticulocyte Fraction 14.50 % 3.00-15.90 [facility] Total Iron Binding Capacity 357 ug/dL 250-450 [facility] RBC Auto (Bld) [#/Vol]Ordere d By: Skylar Fong on 02-16-2024 RBC (Bld) [#/Vol] 4.34 10*6/uL 4.2-5.4 [facility] Reticulocytes Auto (Bld) [#/ Vol]Ordered By: Skylar Fong on 02-16-2024 Reticulocytes/100 RBC (Bld) 2.11 % 0.5-1.5 [facility] Serum or plasma calcium liana urement (mass/volume)Ordered By: Skylar Fong on 02-16-2024 Calcium [Mass/Vol] 9.1 mg/dL 8.5-10.1 [facility] Serum or plasma creatinine m easurement (mass/volume)Ordered By: Skylar Fong on 02-16-2024 Creatinine [Mass/Vol] 0.63 mg/dL 0.55-1.02 [facility] Comment on above: The validity of the calculated GFR & GFRAA in patients over 70 years has not been determined. Clinical correlation is essential. Serum or plasma iron saturat ion measurement (mass fraction)Ordered By: Skylar Fong on 02-16-2024 Iron saturation [Mass fraction] 10.9 % 15.0-55.0 [facility] Serum or plasma urea nitroge n measurement (mass/volume)Ordered By: Skylar Fong on 02-16-2024 Urea nitrogen [Mass/Vol] 10 mg/dL 7-18 [facility] Thin prep Papanicolaou smear with manual screeningOrdered By: Skylar Fong on 02-16-2024 Thin prep Papanicolaou smear with manual screening 2.7 g/dL 3.2-5.0 [facility] Thin prep Papanicolaou smear with manual screening 22 U/L 15-37 [facility] Thin prep Papanicolaou smear with manual screening 11 5-15 [facility] NM GASTRIC EMPTYING STUDYon 09-16-2023 NM GASTRIC EMPTYING STUDY ORIGINAL EXAMINATION: GASTRIC EMPTYING STUDY09/16/2023 3:24 pm TECHNIQUE: 2.0 mCi of Tc 99m sulfur colloid mixed with 4 oz egg white, 2 pieces toast, and jelly was ingested with water. COMPARISON: None HISTORY: ORDERING SYSTEM PROVIDED HISTORY: Weight loss FINDINGS: The gastric retention at 0.5 hour is 92 % (normal value of retention at 0.5 hour is more than 70%). The gastric retention at 1 hour is 78 % (normal value of retention at 1 hour is more than 30% and less than 90%). The gastric retention at 2 hours is 56 % (normal value of retention at 2 hours is less than 60%). The gastric retention at 3 hours is 32 % (normal value of retention at 3 hours is less than 30%). The gastric retention at 4 hours is 32 %, which is normal (normal value of retention at 4 hours is less than 10%). IMPRESSION: Moderately delayed gastric emptying. I have personally reviewed the images of this examination and agree with the resident's findings and interpretations. Interpreted by: Melanie Berman MD Preliminary Report By: Yovany Vergara Electronically signed By Melanie Berman MD Dictated Date: 09/16/2023 3:25:14 PM Prelim Date: 09/16/2023 4:25:53 PM Sign Date: 09/16/2023 4:25:53 PM Ordering Provider: LAZARO DELG[facility] ([place]) No Panel InformationOrdered By: Lazaro Delgado on 08-27-2023 Stool Pancreatic Elastase 59 >200 [facility] Comment on above: Result Units: ug Vida st./gResults verified by repeat testing Severe Pancreatic Insufficiency: <100 Moderate Pancreatic Insufficiency: 100 - 200 Normal: >200Performed at: [facility] [id number] Director: Lorenzo Jon MD, Phone: [phone] Basophil percentageOrdered B y: Lazaro Delgado on 08-18-2023 Bilirubin [Mass/Vol] 0.40 mg/dL 0.20-1.00 [facility] Comment on above: For patients on eltr ombopag therapy, use of Dimension [place] TBIL is not recommended. Protein [Mass/Vol] 7.6 g/dL 6.4-8.2 [facility] Direct bilirubinOrdered By: Lazaro Delgado on 08-18-2023 Bilirubin.direct [Mass/Vol] 0.09 mg/dL 0.00-0.30 [facility] Laboratory - Chemistry and C hemistry - challengeOrdered By: Lazaro Delgado on 08-18-2023 ALP [Catalytic activity/Vol] 153 U/L 45-117 [facility] ALT [Catalytic activity/Vol] 32 U/L 13-56 [facility] Globulin (S) [Mass/Vol] 4.7 g/dL 2.2-4.2 [facility] Serum or plasma C reactive p rotein measurement (mass/volume)Ordered By: Lazaro Delgado on 08-18-2023 CRP [Mass/Vol] 25.90 mg/L 0.0-3.0 [facility] Comment on above: C-Reactive Protein ( CRP) provides useful information for thediagnosis, therapy and monitoring of inflammatory processesand associated diseases. For the evaluation of Relative Riskfor Cardiovascular Disease, a High Sensitivity CRP (HSCRP)should be ordered. Serum or plasma albumin linaa urement (mass/volume)Ordered By: Lazaro Delgado on 08-18-2023 Albumin [Mass/Vol] 2.9 g/dL 3.2-5.0 [facility] Thin prep Papanicolaou smear with manual screeningOrdered By: Lazaro Delgado on 08-18-2023 Thin prep Papanicolaou smear with manual screening 18 U/L 15-37 [facility] Comment on above: Slight Hemolysis, Re sult may be falsely increased. Basophil percentageOrdered B y: Skylar Fong on 07-14-2023 Bilirubin [Mass/Vol] 0.30 mg/dL 0.20-1.00 [facility] Comment on above: For patients on eltr ombopag therapy, use of Dimension [place] TBIL is not recommended. Chloride [Moles/Vol] 102 mmol/L 98-107 [facility] Glucose [Mass/Vol] 267 mg/dL 74-106 [facility] Comment on above: Glucose result great er than or equal to 200 mg/dLsuggests DIABETES MELLITUS per A.D.A. criteria. Potassium [Moles/Vol] 3.6 mmol/L 3.5-5.1 [facility] Protein [Mass/Vol] 7.5 g/dL 6.4-8.2 [facility] Sodium [Moles/Vol] 137 mmol/L 136-145 [facility] Laboratory - Chemistry and C hemistry - challengeOrdered By: Skylar Fong on 07-14-2023 ALP [Catalytic activity/Vol] 154 U/L 45-117 [facility] ALT [Catalytic activity/Vol] 27 U/L 13-56 [facility] CO2 [Moles/Vol] 17.0 mmol/L 21.0-32.0 [facility] Globulin (S) [Mass/Vol] 4.7 g/dL 2.2-4.2 [facility] Magnesium [Mass/Vol] 2.1 mg/dL 1.6-2.6 [facility] Urea nitrogen/Creatinine [Mass ratio] 6.8 mg/mg 10-20 [facility] No Panel InformationOrdered By: Skylar Fong on 07-14-2023 Estimated GFR (MDRD) Amer 102 mL/min >60 [facility] Comment on above: GFR Calc Estimated GFR (MDRD) Non-Af Amer 84 mL/min >60 [facility] Comment on above: Non- GFR Calc Thyroid Stimulating Hormone (TSH) 0.94 uIU/mL 0.358-3.74 [facility] Serum or plasma albumin liana urement (mass/volume)Ordered By: Skylar Fogn on 07-14-2023 Albumin [Mass/Vol] 2.8 g/dL 3.2-5.0 [facility] Serum or plasma albumin/glob ulin mass ratioOrdered By: Skylar Fong on 07-14-2023 Albumin/Globulin [Mass ratio] 0.6 {ratio} 0.9-2.4 [facility] Serum or plasma calcium liana urement (mass/volume)Ordered By: Skylar Fong on 07-14-2023 Calcium [Mass/Vol] 8.9 mg/dL 8.5-10.1 [facility] Serum or plasma creatinine m easurement (mass/volume)Ordered By: Skylar Fong on 07-14-2023 Creatinine [Mass/Vol] 0.88 mg/dL 0.55-1.02 [facility] Comment on above: The validity of the calculated GFR & GFRAA in patients over 70 years has not been determined. Clinical correlation is essential. Serum or plasma urea nitroge n measurement (mass/volume)Ordered By: Skylar Fong on 07-14-2023 Urea nitrogen [Mass/Vol] 6 mg/dL 7-18 [facility] Thin prep Papanicolaou smear with manual screeningOrdered By: Skylar Fong on 07-14-2023 Thin prep Papanicolaou smear with manual screening 15 U/L 15-37 [facility] Thin prep Papanicolaou smear with manual screening 18 5-15 [facility] Alternaria alternata IgE ser umOrdered By: Skylar Fong on 05-19-2023 A. alternata IgE Qn (S) <0.10 kU/L Class 0 [facility] Chocolate RASTOrdered By: Khadar Fong on 05-19-2023 Chocolate IgE Qn (S) <0.10 kU/L Class 0 [facility] Erythrocyte sedimentation ra teOrdered By: Skylar Fong on 05-19-2023 ESR (Bld) [Velocity] 42 mm/h 0-30 [facility] Laboratory - AllergyOrdered By: Skylar Fong on 05-19-2023 Sweet gum IgE RAST class (S) <0.10 kU/L Class 0 [facility] Laboratory - Chemistry and C hemistry - challengeOrdered By: Skylar Fong on 05-19-2023 Albumin [Mass/Vol] 3.3 g/dL 2.9-4.4 [facility] Laboratory - Miscellaneous t estsOrdered By: Skylar Fong on 05-19-2023 Service comment (Unsp spec) [Interp] Comment . [facility] Comment on above: Levels of Specific I gE Class Description of Class ----- < 0.10 0 Negative 0.10 - 0.31 0/I Equivocal/Low 0.32 - 0.55 I Low 0.56 - 1.40 II Moderate 1.41 - 3.90 III High 3.91 - 19.00 IV Very High 19.01 - 100.00 V Very High >100.00 [facility] No Panel InformationOrdered By: Skylar Fong on 05-19-2023 Addendum Document Comment . [facility] Comment on above: The SPE pattern demo nstrates an increase in the betafraction. This may be due to increases in transferrin, beta-lipoprotein (hypercholesterolemia), or immunoglobulins, asseen in polyclonal or monoclonal gammopathies. Ifclinically indicated, the presence of a monoclonalgammopathy may be confirmed by immunofixation or serum freelight chain quantitation.Performed at: [facility] [address] [id number] Director: Lazaro Caputo PhD, Phone: [phone] Uyaxi-7-Yqkyccenz 0.2 g/dL 0.0-0.4 [facility] Mocif-8-Yhteurkar 1.2 g/dL 0.4-1.0 [facility] Anti-Nuclear Antibody Screen Negative Negative [facility] Comment on above: Performed at: [address] [id number] Director: Lorenzo Jon MD, Phone: [phone] at: [facility] [address] [id number] Director: Lazaro Caputo PhD, Phone: [phone] Aspergillus fumigatus Allergen <0.10 kU/L Class 0 [facility] Common Ragweed (Short) Allergen <0.10 kU/L Class 0 [facility] Niuean Plantain Allergen (RAST) <0.10 kU/L Class 0 [facility] Gamma Globulins 1.0 g/dL 0.4-1.8 [facility] Maple ([place]) Allergen IgE Ab <0.10 kU/L Class 0 [facility] Seafood Group Allergens (RAST) Negative . [facility] Comment on above: Allergens in this mi x are: Blue mussel Fish [place] Shrimp Tuna [place] Tree Allergen <0.10 kU/L Class 0 [facility] Protein Fractions Elph [Inte rp]Ordered By: Skylar Fong on 05-19-2023 Protein Fractions [Interp] Comment . [facility] Comment on above: Protein electrophore sis scan will follow via computer,mail, or pan helper delivery. Rough pigweed specific IgE a ntibody assayOrdered By: Skylar Fong on 05-19-2023 Rough Pigweed IgE Qn (S) <0.10 kU/L Class 0 [facility] Serum Bermuda grass IgE anti body assay (units/volume)Ordered By: Skylar Fong on 05-19-2023 Bermuda grass IgE Qn (S) <0.10 kU/L Class 0 [facility] Serum Cladosporium herbarum IgE antibody assay (units/volume)Ordered By: Skylar Fong on 05-19-2023 C. herbarum IgE Qn (S) <0.10 kU/L Class 0 [facility] Serum Dermatophagoides farin ae specific IgE antibody assay (units/volume)Ordered By: Skylar Fong on 05-19-2023 Iraqi house dust mite IgE Qn (S) <0.10 kU/L Class 0 [facility] Serum house dust mi te IgE antibody assay (units/volume)Ordered By: Skylar Fong on 05-19-2023 house dust mite IgE Qn (S) <0.10 kU/L Class 0 [facility] Serum Jason grass IgE anti body assay (units/volume)Ordered By: Skylar Fong on 05-19-2023 Jason grass IgE Qn (S) <0.10 kU/L Class 0 [facility] Serum [place] blue grass Ig E antibody assay (units/volume)Ordered By: Skylar Fong on 05-19-2023 [place] blue grass IgE Qn (S) <0.10 kU/L Class 0 [facility] Serum Mucor racemosus IgE an tibody assay (units/volume)Ordered By: Skylar Fong on 05-19-2023 Mucor racemosus IgE Qn (S) <0.10 kU/L Class 0 [facility] Serum Penicillium notatum Ig E antibody assay (units/volume)Ordered By: Skylar Fong on 05-19-2023 P. notatum IgE Qn (S) <0.10 kU/L Class 0 [facility] Serum Periplaneta americana IgE antibody assay (units/volume)Ordered By: Skylar Fong on 05-19-2023 Iraqi Cockroach IgE Qn (S) <0.10 kU/L Class 0 [facility] Serum albumin to globulin ra vilma by protein electrophoresisOrdered By: Skylar Fong on 05-19-2023 Albumin/Globulin Elph [Mass ratio] 0.8 0.7-1.7 [facility] Serum bahia grass IgE antibo dy assay (units/volume)Ordered By: Skylar Fong on 05-19-2023 Bahia grass IgE Qn (S) <0.10 kU/L Class 0 [facility] Serum beef IgE antibody assa y (units/volume)Ordered By: Skylar Fong on 05-19-2023 Beef IgE Qn (S) <0.10 kU/L Class 0 [facility] Serum cat dander IgE antibod y assay (units/volume)Ordered By: Skylar Fong on 05-19-2023 Cat dander IgE Qn (S) <0.10 kU/L Class 0 [facility] Serum corn IgE antibody assa y (units/volume)Ordered By: Skylar Fong on 05-19-2023 Delano IgE Qn (S) <0.10 kU/L Class 0 [facility] Serum cow milk IgE antibody assay (units/volume)Ordered By: Skylar Fong on 05-19-2023 Cow milk IgE Qn (S) 0.13 kU/L Class 0/I ost [facility] Serum dog epithelium IgE ant ibody assay (units/volume)Ordered By: Skylar Fong on 05-19-2023 Dog epithelium IgE Qn (S) <0.10 kU/L Class 0 [facility] Serum globulin measurement ( mass/volume)Ordered By: Skylar Fong on 05-19-2023 Globulin (S) [Mass/Vol] 3.9 g/dL 2.2-3.9 [facility] Serum hazelnut pollen IgE an tibody assay (units/volume)Ordered By: Skylar Fong on 05-19-2023 Hazelnut Pollen IgE Qn (S) <0.10 kU/L Class 0 [facility] Serum mountain cedar specifi c IgE antibody assayOrdered By: Skylar Fong on 05-19-2023 Mountain Juniper IgE Qn (S) <0.10 kU/L Class 0 [facility] Serum mugwort IgE antibody a ssay (units/volume)Ordered By: Skylar Fong on 05-19-2023 Mugwort IgE Qn (S) <0.10 kU/L Class 0 [facility] Serum nettle IgE antibody as say (units/volume)Ordered By: Skylar Fong on 05-19-2023 Nettle IgE Qn (S) <0.10 kU/L Class 0 [facility] Serum or plasma C reactive p rotein measurement (mass/volume)Ordered By: Skylar Fong on 05-19-2023 CRP [Mass/Vol] 17.90 mg/L 0.0-3.0 [facility] Comment on above: C-Reactive Protein ( CRP) provides useful information for thediagnosis, therapy and monitoring of inflammatory processesand associated diseases. For the evaluation of Relative Riskfor Cardiovascular Disease, a High Sensitivity CRP (HSCRP)should be ordered. Serum or plasma beta globuli n measurement by electrophoresis (mass/volume)Ordered By: Skylar Fong on 05-19-2023 Beta globulin Elph [Mass/Vol] 1.5 g/dL 0.7-1.3 [facility] Serum peanut IgE antibody as say (units/volume)Ordered By: Skylar Fong on 05-19-2023 Peanut IgE Qn (S) <0.10 kU/L Class 0 [facility] Serum pork IgE antibody assa y (units/volume)Ordered By: Skylar Fong on 05-19-2023 Pork IgE Qn (S) <0.10 kU/L Class 0 [facility] Serum sheep sorrel IgE antib reuben assay (units/volume)Ordered By: Skylar Fong on 05-19-2023 Sheep [place] IgE Qn (S) <0.10 kU/L Class 0 [facility] Serum soybean IgE antibody a ssay (units/volume)Ordered By: Skylar Fong on 05-19-2023 Soybean IgE Qn (S) <0.10 kU/L Class 0 [facility] Serum wheat IgE antibody ass ay (units/volume)Ordered By: Skylar Fong on 05-19-2023 Wheat IgE Qn (S) <0.10 kU/L Class 0 [facility] Serum white elm IgE antibody assay (units/volume)Ordered By: Skylar Fong on 05-19-2023 White Elm IgE Qn (S) <0.10 kU/L Class 0 [facility] Serum white hickory IgE anti body assay (units/volume)Ordered By: Skylar Fong on 05-19-2023 White Mcclain IgE Qn (S) <0.10 kU/L Class 0 [facility] Serum white mulberry IgE ant ibody assay (units/volume)Ordered By: Skylar Fong on 05-19-2023 White mulberry IgE Qn (S) <0.10 kU/L Class 0 [facility] Serum white oak IgE antibody assay (units/volume)Ordered By: Skylar Fong on 05-19-2023 Bowler IgE Qn (S) 0.18 kU/L Class 0/I [facility] Serum whole egg IgE antibody assay (units/volume)Ordered By: Skylar Fong on 05-19-2023 Whole Egg IgE Qn (S) <0.10 kU/L Class 0 [facility] Stemphylium herbarum IgE ser umOrdered By: Skylar Fong on 05-19-2023 Stemphylium botryosum IgE Qn (S) <0.10 kU/L Class 0 [facility] Thin prep Papanicolaou smear with manual screeningOrdered By: Skylar Fong on 05-19-2023 Thin prep Papanicolaou smear with manual screening See comment [facility] Comment on above: Result: Not Observed Total protein bloodOrdered B y: Skylar Fong on 05-19-2023 Protein [Mass/Vol] 7.2 g/dL 6.0-8.5 [facility] No Panel InformationOrdered By: Skylar Fong on 05-13-2023 Miscellaneous Test See comment [facility] Comment on above: TEST RESULTS LIMITS Giardia, EIA, Ova/ParasiteOva + Parasite Exam01 Final reportThese results were obtained using wet preparation(s) and trichrome stained smear. This test does not include testing for Cryptosporidium parvum, Cyclospora, or Microsporidia.Result 1No ova, cysts, or parasites seen.One negative specimen does not rule out the possibility of aparasitic infection.Giardia lamblia Ag, EIA Negative Negative TESTING PERFORMED AT [facility]. ORIGINAL REPORT ON FILE IN LAB CONTAINS ADDITIONAL TEST SITE INFORMATION. Stool Pancreatic Elastase < 50 >200 [facility] Comment on above: Result Units: ug [address] st./gResults verified by repeat testing Severe Pancreatic Insufficiency: <100 Moderate Pancreatic Insufficiency: 100 - 200 Normal: >200Performed at: [address] [id number] Director: Lorenzo Jon MD, Phone: [phone] Stool enteric pathogen panel by probe and target amplification methodOrdered By: Skylar Fong on 05-13-2023 Gastrointestinal pathogens panel KENNA+probe (Stl) [facility] Gastrointestinal pathogens panel KENNA+probe (Stl) [facility] Absolute lymphocyte countOrd ered By: Dr. Fong on 04-07-2023 Lymphocytes Auto (Unsp spec) [#/Vol] 2.40 10*3/uL 0.83-4.51 [facility] Basophil percentageOrdered B y: Dr. Fong on 04-07-2023 Basophils/100 WBC (Bld) 0.8 % 0-1 [facility] Bilirubin [Mass/Vol] 0.40 mg/dL 0.20-1.00 [facility] Comment on above: For patients on eltr ombopag therapy, use of Dimension [place] TBIL is not recommended. Chloride [Moles/Vol] 104 mmol/L 98-107 [facility] Eosinophils/100 WBC (Bld) 1.1 % 0-5 [facility] Glucose [Mass/Vol] 206 mg/dL 74-106 [facility] Comment on above: Glucose result great er than or equal to 200 mg/dLsuggests DIABETES MELLITUS per A.D.A. criteria. Neutrophils (Bld) [#/Vol] 6.6 10*3/uL 2.0-7.7 [facility] Neutrophils/100 WBC (Bld) 67.0 % 47-70 [facility] Potassium [Moles/Vol] 4.2 mmol/L 3.5-5.1 [facility] Protein [Mass/Vol] 7.7 g/dL 6.4-8.2 [facility] Sodium [Moles/Vol] 137 mmol/L 136-145 [facility] WBC (Bld) [#/Vol] 9.8 10*3/uL 4.4-11.0 [facility] Blood erythrocytes count (nu mber/volume)Ordered By: Dr. Fong on 04-07-2023 RBC (Bld) [#/Vol] 4.56 10*6/uL 4.2-5.4 [facility] Blood hemoglobin measurement (mass/volume)Ordered By: Dr. Fong on 04-07-2023 Hemoglobin (Bld) [Mass/Vol] 12.8 g/dL 12.0-15.0 [facility] Blood lymphocytes/100 leukoc ytesOrdered By: Dr. Fong on 04-07-2023 Lymphocytes/100 WBC (Bld) 24.4 % 19-41 [facility] Blood monocytes/100 leukocyt esOrdered By: Dr. Fong on 04-07-2023 Monocytes/100 WBC (Bld) 6.1 % 0-10 [facility] Blood platelet mean volumeOr dered By: Dr. Fong on 04-07-2023 Platelet mean volume (Bld) [Entitic vol] 9.6 fL 6.2-12.0 [facility] Determination of erythrocyte mean corpuscular volume (MCV)Ordered By: Dr. Fong on 04-07-2023 MCV (RBC) [Entitic vol] 87.5 fL 81-99 [facility] Hematocrit Auto (Bld) [Volum e fraction]Ordered By: Dr. Fong on 04-07-2023 Hematocrit (Bld) [Volume fraction] 39.9 % 37-47 [facility] Laboratory - Chemistry and C hemistry - challengeOrdered By: Dr. Fong on 04-07-2023 ALP [Catalytic activity/Vol] 204 U/L 45-117 [facility] ALT [Catalytic activity/Vol] 29 U/L 13-56 [facility] CO2 [Moles/Vol] 22.0 mmol/L 21.0-32.0 [facility] Cobalamin (Vitamin B12) [Mass/Vol] 299 pg/mL 211-911 [facility] Globulin (S) [Mass/Vol] 5.0 g/dL 2.2-4.2 [facility] Lipase [Catalytic activity/Vol] 12 U/L 13-75 [facility] Comment on above: Please note:LIPASE r evised reference range effective 23. New Lipase methodology. Expected to produce lower values than the previous assay method. NEW Reference Range: 13 - 75 U/L Urea nitrogen/Creatinine [Mass ratio] 12.2 mg/mg 10-20 [facility] Laboratory - Hematology and Cell countsOrdered By: Dr. Fong on 04-07-2023 Erythrocyte distribution width (RBC) [Entitic vol] 38.5 fL 35.1-43.9 [facility] Erythrocyte distribution width (RBC) [Ratio] 12.0 % 11.6-14.6 [facility] Immature granulocytes/100 WBC (Bld) 0.600 % 0.0-0.9 [facility] Comment on above: IG% - Immature Granu locytes (promyelocytes, myelocytes and metamyelocytes) > 1% indicates that a LEFT SHIFT is Present. MCH (RBC) [Entitic mass] 28.1 pg 27.0-32.0 [facility] Nucleated RBC/100 WBC (Bld) [Ratio] 0 % 0-5 [facility] MCHC Auto (RBC) [Mass/Vol]Or dered By: Dr. Fong on 04-07-2023 MCHC (RBC) [Mass/Vol] 32.1 g/dL 32-36 [facility] No Panel InformationOrdered By: Dr. Fong on 04-07-2023 Anti-Gliadin IgA Antibody 8 units 0-19 [facility] Comment on above: Negative 0 - 19 Weak Positive 20 - 30 Moderate to Strong Positive >30 Anti-Gliadin IgG Antibody 4 units 0-19 [facility] Comment on above: Negative 0 - 19 Weak Positive 20 - 30 Moderate to Strong Positive >30 Endomysial IgA Antibody Negative Negative [facility] Estimated GFR (MDRD) Amer 142 mL/min >60 [facility] Comment on above: GFR Calc Estimated GFR (MDRD) Non-Af Amer 117 mL/min >60 [facility] Comment on above: Non- GFR Calc Thyroid Stimulating Hormone (TSH) 1.21 uIU/mL 0.358-3.74 [facility] Tissue Transglutaminase IgG Ab <2 U/mL 0-5 [facility] Comment on above: Negative 0 - 5 Weak Positive 6 - 9 Positive >9 Urine Microalbumin/Creatinine Ratio 586.4 mg/g CRE <30 [facility] No Panel InformationOrdered By: Skylar Fong on 04-07-2023 Miscellaneous Test See comment [facility] Comment on above: TEST RESULTS LIMITSZ NT8 Antibodies 22 High U/mLReference Range:All Ages:<15 Negative> or =15 Positive [facility] ORIGINAL REPORT ON FILE IN LAB CONTAINS ADDITIONAL TEST SITE INFORMATION. Platelets bldOrdered By: Dr. Fong on 04-07-2023 Platelets (Bld) [#/Vol] 430 10*3/uL 150-450 [facility] Serum IgA measurement (units /volume)Ordered By: Dr. Fong on 04-07-2023 IgA Qn (S) 653 mg/dL 87-352 [facility] Comment on above: Performed at: [address] [id number] Director: Lazaro Caputo PhD, Phone: [phone] Serum or plasma albumin laina urement (mass/volume)Ordered By: Dr. Fong on 04-07-2023 Albumin [Mass/Vol] 2.7 g/dL 3.2-5.0 [facility] Serum or plasma albumin/glob ulin mass ratioOrdered By: Dr. Fong on 04-07-2023 Albumin/Globulin [Mass ratio] 0.5 {ratio} 0.9-2.4 [facility] Serum or plasma calcium liana urement (mass/volume)Ordered By: Dr. Fong on 04-07-2023 Calcium [Mass/Vol] 9.7 mg/dL 8.5-10.1 [facility] Serum or plasma creatinine m easurement (mass/volume)Ordered By: Dr. Fong on 04-07-2023 Creatinine [Mass/Vol] 0.66 mg/dL 0.55-1.02 [facility] Comment on above: The validity of the calculated GFR & GFRAA in patients over 70 years has not been determined. Clinical correlation is essential. Serum or plasma ferritin sagrario surement (mass/volume)Ordered By: Dr. Fong on 04-07-2023 Ferritin [Mass/Vol] 95 ng/mL 8-252 [facility] Serum or plasma urea nitroge n measurement (mass/volume)Ordered By: Dr. Fong on 04-07-2023 Urea nitrogen [Mass/Vol] 8 mg/dL 7-18 [facility] Serum tissue transglutaminas e IgA antibody assay (units/volume)Ordered By: Dr. Fong on 04-07-2023 tTG IgA Qn (S) <2 U/mL 0-3 [facility] Comment on above: Negative 0 - 3 Weak Positive 4 - 10 Positive >10 Tissue Transglutaminase (tTG) has been identified as the endomysial antigen. Studies have demonstr- ated that endomysial IgA antibodies have over 99% specificity for gluten sensitive enteropathy. Thin prep Papanicolaou smear with manual screeningOrdered By: Dr. Fong on 04-07-2023 Thin prep Papanicolaou smear with manual screening 19 U/L 15-37 [facility] Thin prep Papanicolaou smear with manual screening 11 5-15 [facility] Thin prep Papanicolaou smear with manual screening 207.0 mg/L NO RANGE EST. [facility] Urine creatinine measurement (mass/volume)Ordered By: Dr. Fong on 04-07-2023 Creatinine (U) [Mass/Vol] 35.30 mg/dL NO RANGE EST. [facility] Whole blood hemoglobin A1c/t otal hemoglobin ratio (mass fraction)Ordered By: Dr. Fong on 04-07-2023 HbA1c (Bld) [Mass fraction] 10.6 % 3.8-5.6 [facility] Comment on above: Normal < 5.7 % Predi abetic 5.7 - 6.4 % Diabetic >or= 6.5 % Please note range changes. CBC W Auto Differential pane l (Bld)on 12-27-2022 Basophils (Bld) [#/Vol] 0.09 10*3/uL Normal <0.11 [facility] Comment on above: Order Comment: Speci men Type: BLOOD SPECIMENOrdering Facility: [facility] Address: [address] [place] [address] Performed By: #### 5 7021-8 ####[facility] LABORATORYCLIA [id number] [place] [address] [place] Basophils/100 WBC (Bld) 1.1 % Normal [facility] Comment on above: Order Comment: Speci men Type: BLOOD SPECIMENOrdering Facility: [facility] Address: [address] [place] [address] Performed By: #### 5 7021-8 ####COTTRE[facility] LABORATORYCLIA [id number] [place] [address] [place] Differential cell count method Nom (Bld) Auto Normal [facility] Comment on above: Order Comment: Speci men Type: BLOOD SPECIMENOrdering Facility: [facility] Address: [address] [address] Performed By: #### 5 7021-8 ####COTTRELL LABORATORYCLIA [id number] [place] [address] [place] Eosinophils (Bld) [#/Vol] 0.23 10*3/uL Normal <0.46 [facility] Comment on above: Order Comment: Speci men Type: BLOOD SPECIMENOrdering Facility: [facility] Address: [address] [place] [address] Performed By: #### 5 7021-8 ####COTTRELL LABORATORYCLIA [id number] [address] [place] Eosinophils/100 WBC (Bld) 2.7 % Normal [facility] Comment on above: Order Comment: Speci men Type: BLOOD SPECIMENOrdering Facility: [facility] Address: [address] [place] [address] Performed By: #### 5 7021-8 ####COTTRELL LABORATORYCLIA [id number] [address] Erythrocyte distribution width (RBC) [Ratio] 11.9 % Normal 11.5-15.0 [facility] Comment on above: Order Comment: Speci men Type: BLOOD SPECIMENOrdering Facility: [facility] Address: [address] [place] [address] Performed By: #### 5 7021-8 ####COTTRELL LABORATORYCLIA [id number] [address] [place] Hematocrit (Bld) [Volume fraction] 38.6 % Normal 36.0-46.0 [facility] Comment on above: Order Comment: Speci men Type: BLOOD SPECIMENOrdering Facility: [facility] Address: [address] [place] [address] Performed By: #### 5 7021-8 ####COTTRELL LABORATORYCLIA [id number] [address] [place] Hemoglobin (Bld) [Mass/Vol] 12.6 g/dL Normal 11.5-15.5 [facility] Comment on above: Order Comment: Speci men Type: BLOOD SPECIMENOrdering Facility: [facility] Address: [address] [place] [address] Performed By: #### 5 7021-8 ####COTTRELL LABORATORYCLIA [id number] [address] [place] Immature granulocytes (Bld) [#/Vol] 0.05 10*3/uL Normal <0.10 [facility] Comment on above: Order Comment: Speci men Type: BLOOD SPECIMENOrdering Facility: [facility] Address: [address] [place] [address] Performed By: #### 5 7021-8 ####COTTRE[facility] LABORATORYCLIA [id number] [address] Immature granulocytes/100 WBC (Bld) 0.6 % Normal [facility] Comment on above: Order Comment: Speci men Type: BLOOD SPECIMENOrdering Facility: [facility] Address: [address] [place] [address] Performed By: #### 5 7021-8 ####COTTRE[facility] LABORATORYCLIA [id number] [address] Lymphocytes (Bld) [#/Vol] 1.57 10*3/uL Normal 1.00-4.00 [facility] Comment on above: Order Comment: Speci men Type: BLOOD SPECIMENOrdering Facility: [facility] Address: [address] [place] [address] Performed By: #### 5 7021-8 ####COTTRELL LABORATORYCLIA [id number] [address] Lymphocytes/100 WBC (Bld) 18.4 % Normal [facility] Comment on above: Order Comment: Speci men Type: BLOOD SPECIMENOrdering Facility: [facility] Address: [address] [place] [address] Performed By: #### 5 7021-8 ####COTTRELL LABORATORYCLIA [id number] [address] MCH (RBC) [Entitic mass] 28.2 pg Normal 26.0-34.0 [facility] Comment on above: Order Comment: Speci men Type: BLOOD SPECIMENOrdering Facility: [facility] Address: [address] [place] [address] Performed By: #### 5 7021-8 ####COTTRELL LABORATORYCLIA [id number] [address] MCHC (RBC) [Mass/Vol] 32.6 g/dL Normal 30.5-36.0 [facility] Comment on above: Order Comment: Speci men Type: BLOOD SPECIMENOrdering Facility: [facility] Address: [address] [place] [address] Performed By: #### 5 7021-8 ####COTTRELL LABORATORYCLIA [id number] [place] [address] [place] MCV (RBC) [Entitic vol] 86.4 fL Normal 80.0-100.0 [facility] Comment on above: Order Comment: Speci men Type: BLOOD SPECIMENOrdering Facility: [facility] Address: [address] [place] [address] Performed By: #### 5 7021-8 ####COTTRE[facility] LABORATORYCLIA [id number] [place] [address] [place] Monocytes (Bld) [#/Vol] 0.49 10*3/uL Normal <0.87 [facility] Comment on above: Order Comment: Speci men Type: BLOOD SPECIMENOrdering Facility: [facility] Address: [address] [place] [address] Performed By: #### 5 7021-8 ####COTTRE[facility] LABORATORYCLIA [id number] [address] [place] Monocytes/100 WBC (Bld) 5.8 % Normal [facility] Comment on above: Order Comment: Speci men Type: BLOOD SPECIMENOrdering Facility: [facility] Address: [address] [place] [address] Performed By: #### 5 7021-8 ####COTTRELL LABORATORYCLIA [id number] [place] [address] [place] Neutrophils (Bld) [#/Vol] 6.09 10*3/uL Normal 1.45-7.50 [facility] Comment on above: Order Comment: Speci men Type: BLOOD SPECIMENOrdering Facility: [facility] Address: [address] [place] [address] Performed By: #### 5 7021-8 ####COTTRELL LABORATORYCLIA [id number] [address] Neutrophils/100 WBC (Bld) 71.4 % Normal [facility] Comment on above: Order Comment: Speci men Type: BLOOD SPECIMENOrdering Facility: [facility] Address: [address] [address] Performed By: #### 5 7021-8 ####COTTRELL LABORATORYCLIA [id number] [place] [address] [place] Nucleated RBC (Bld) [#/Vol] 10*3/uL Normal <0.01 [facility] Comment on above: Order Comment: Speci men Type: BLOOD SPECIMENOrdering Facility: [facility] Address: [address] [address] Performed By: #### 5 7021-8 ####COTTRELL LABORATORYCLIA [id number] [address] [place] Nucleated RBC/100 WBC (Bld) [Ratio] 0.0 /100 WBC Normal [facility] Comment on above: Order Comment: Speci men Type: BLOOD SPECIMENOrdering Facility: [facility] Address: [address] [address] Performed By: #### 5 7021-8 ####COTTRELL LABORATORYCLIA [id number] [place] [address] [place] Platelet mean volume (Bld) [Entitic vol] 8.8 fL Low 9.0-12.7 [facility] Comment on above: Order Comment: Speci men Type: BLOOD SPECIMENOrdering Facility: [facility] Address: [address] [address] Performed By: #### 5 7021-8 ####COTTRE[facility] LABORATORYCLIA [id number] [place] [address] [place] Platelets (Bld) [#/Vol] 408 10*3/uL High 150-400 [facility] Comment on above: Order Comment: Speci men Type: BLOOD SPECIMENOrdering Facility: [facility] Address: [address] [address] Performed By: #### 5 7021-8 ####COTTRELL LABORATORYCLIA [id number] [address] [place] RBC (Bld) [#/Vol] 4.47 10*6/uL Normal 3.90-5.20 [facility] Comment on above: Order Comment: Speci men Type: BLOOD SPECIMENOrdering Facility: [facility] Address: [address] [place] [address] Performed By: #### 5 7021-8 ####COTTRELL LABORATORYCLIA [id number] [place] [address] [place] WBC (Bld) [#/Vol] 8.52 10*3/uL Normal 3.70-11.00 [facility] Comment on above: Order Comment: Speci men Type: BLOOD SPECIMENOrdering Facility: [facility] Address: [address] [place] [address] Performed By: #### 5 7021-8 ####COTTRELL LABORATORYCLIA [id number] [address] [place] Comprehensive metabolic 2000 panelon 12-27-2022 Albumin [Mass/Vol] 3.8 g/dL Low 3.9-4.9 [facility] Comment on above: Order Comment: Speci men Type: BLOOD SPECIMENOrdering Facility: [facility] Address: [address] [place] [address] Performed By: #### 2 4323-8, 3040-3 ####COTTRE[facility] LABORATORYCLIA [id number] [address] [place] ALP [Catalytic activity/Vol] 209 U/L High 34-123 [facility] Comment on above: Order Comment: Speci men Type: BLOOD SPECIMENOrdering Facility: [facility] Address: [address] [place] [address] Performed By: #### 2 4323-8, 3040-3 ####COTTRELL LABORATORYCLIA [id number] [address] ALT [Catalytic activity/Vol] 21 U/L Normal 7-38 [facility] Comment on above: Order Comment: Speci men Type: BLOOD SPECIMENOrdering Facility: [facility] Address: [address] [place] [address], [place] [address] Performed By: #### 2 4323-8, 3040-3 ####COTTRELL LABORATORYCLIA [id number] [place] [address] [place] Anion gap [Moles/Vol] 12 mmol/L Normal 9-18 [facility] Comment on above: Order Comment: Speci men Type: BLOOD SPECIMENOrdering Facility: [facility] Address: [address] [place] [place] [address] [place] [address] Performed By: #### 2 4323-8, 0-3 ####COTTRELL LABORATORYCLIA [id number] [place] [address] [place] AST [Catalytic activity/Vol] 26 U/L Normal 13-35 [facility] Comment on above: Order Comment: Speci men Type: BLOOD SPECIMENOrdering Facility: [facility] Address: [address] [address] Performed By: #### 2 4323-8, 3039-3 ####COTTRELL LABORATORYCLIA [id number] [place] [address] [place] Bilirubin [Mass/Vol] 0.2 mg/dL Normal 0.2-1.3 [facility] Comment on above: Order Comment: Speci men Type: BLOOD SPECIMENOrdering Facility: [facility] Address: [address] [facility] [place] [address] Performed By: #### 2 4323-8, 0-3 ####COTTRELL LABORATORYCLIA [id number] [place] [address] [place] Calcium [Mass/Vol] 9.5 mg/dL Normal 8.5-10.2 [facility] Comment on above: Order Comment: Speci men Type: BLOOD SPECIMENOrdering Facility: [facility] Address: [address] [place] [address] Performed By: #### 2 4323-8, 3040-3 ####COTTRELL LABORATORYCLIA [id number] [place] [address] [place] Chloride [Moles/Vol] 97 mmol/L Normal 97-105 [facility] Comment on above: Order Comment: Speci men Type: BLOOD SPECIMENOrdering Facility: [facility] Address: [address] [address] Performed By: #### 2 4323-8, 0-3 ####COTTRELL LABORATORYCLIA [id number] [place] [address] [place] CO2 [Moles/Vol] 26 mmol/L Normal 22-30 [facility] Comment on above: Order Comment: Speci men Type: BLOOD SPECIMENOrdering Facility: [facility] Address: [address] [address] Performed By: #### 2 4323-8, 3039-3 ####COTTRELL LABORATORYCLIA [id number] [place] [address] [place] Creatinine [Mass/Vol] 0.34 mg/dL Low 0.58-0.96 [facility] Comment on above: Order Comment: Speci men Type: BLOOD SPECIMENOrdering Facility: [facility] Address: [address] [place] [address] Performed By: #### 2 4323-8, 3039-3 ####COTTRELL LABORATORYCLIA [id number] [address] [place] ESTIMATED GLOMERULAR FILTRATION RATE 149 mL/min/1.73m??? Normal >=60 [facility] Comment on above: Order Comment: Speci men Type: BLOOD SPECIMENOrdering Facility: [facility] Address: [address] [place] [address] Result Comment: Steffi mated Glomerular Filtration Rate (eGFR) is calculated using the 2020 CKD-EPI creatinine equation. This equation utilizes serum creatinine, sex, and age as parameters. The creatinine assay has traceable calibration to isotope dilution-mass spectrometry. Refer to KDIGO guidelines for clinical interpretation. In patients with unstable renal function, e.g. those with acute kidney injury, the eGFR may not accurately reflect actual GFR. Performed By: #### 2 4323-8, 3040-3 ####COTTRELL LABORATORYCLIA [id number] [place] [address] [place] Glucose [Mass/Vol] 397 mg/dL High 74-99 [facility] Comment on above: Order Comment: Reginald vieira Type: BLOOD SPECIMENOrdering Facility: [facility] Address: [address] Result Comment: The [place] [employer] (ADA) provides guidance for cutoff values for fasting glucose and random glucose. The ADA defines fasting as no caloric intake for at least 8 hours. Fasting plasma glucose results between 100 to 125 mg/dL indicate increased risk for diabetes (prediabetes).Fasting plasma glucose results greater than or equal to 126 mg/dL meet the criteria for diagnosis of diabetes. In the absence of unequivocal hyperglycemia, results should be confirmed by repeat testing. In a patient with classic symptoms of hyperglycemia or hyperglycemic crisis, random plasma glucose results greater than or equal to 200 mg/dL meet the criteria for diagnosis of diabetes.Reference: Standards of Medical Care in Diabetes 2016, [place] [employer]. Diabetes Care. 2016.39(Suppl 1). Performed By: #### 2 4323-8, 3040-3 ####COTTRELL LABORATORYCLIA [id number] [place] [address] [place] Potassium [Moles/Vol] 4.3 mmol/L Normal 3.7-5.1 [facility] Comment on above: Order Comment: Reginald vieira Type: BLOOD SPECIMENOrdering Facility: [facility] Address: [address] Performed By: #### 2 4323-8, 3040-3 ####COTTRELL LABORATORYCLIA [id number] [place] [address] [place] Protein [Mass/Vol] 7.6 g/dL Normal 6.3-8.0 [facility] Comment on above: Order Comment: Reginald men Type: BLOOD SPECIMENOrdering Facility: [facility] Address: [place] [place] [phone] Performed By: #### 2 4323-8, 3040-3 ####[facility] LABORATORYCLIA [id number] [place] [address] [place] Sodium [Moles/Vol] 135 mmol/L Low 136-144 [facility] Comment on above: Order Comment: Keyuri men Type: BLOOD SPECIMENOrdering Facility: [facility] Address: [address] [place] [phone] Performed By: #### 2 4323-8, 3040-3 ####[facility] LABORATORYCLIA [id number] [place] [address] [place] Urea nitrogen [Mass/Vol] 5 mg/dL Low 7-21 [facility] Comment on above: Order Comment: Speci men Type: BLOOD SPECIMENOrdering Facility: [facility] Address: [place] [place] [address] Performed By: #### 2 4323-8, 3040-3 ####COTTRE[facility] LABORATORYCLIA [id number] [place] [address] [place] ED NOTEon 12-27-2022 ED NOTE Normal [facility] ED NOTE Normal [facility] ED PROV NOTEon 12-27-2022 ED PROV NOTE Normal [facility] Lipase SerPl-cCncon 12-28-19 23 Lipase [Catalytic activity/Vol] 41 U/L Normal 16 [facility] Comment on above: Order Comment: Speci men Type: BLOOD SPECIMENOrdering Facility: [facility] Address: [place] [address] Performed By: #### 2 4323-8, 3040-3 ####C[facility] LABORATORYCLIA [id number] [address] Urinalysis complete panel (U )on 12-27-2022 Bilirubin Ql (U) Negative Normal Negative [facility] Comment on above: Order Comment: Speci men Type: URINE SPECIMENOrdering Facility: [facility] Address: [place] [address] Performed By: #### 2 4356-8 ####COTT[facility] LABORATORYCLIA [id number] [address] [place] Clarity (Unsp spec) Clear Normal Clear [facility] Comment on above: Order Comment: Speci men Type: URINE SPECIMENOrdering Facility: [facility] Address: [place] [address] Performed By: #### 2 4356-8 ####C[facility] LABORATORYCLIA [id number] [address] Color (U) Yellow Normal Yellow [facility] Comment on above: Order Comment: Speci men Type: URINE SPECIMENOrdering Facility: [facility] Address: [address] [place] [address] Performed By: #### 2 4356-8 ####COTT[facility] LABORATORYCLIA [id number] [place] [address] [place] Epithelial cells LM.HPF (Urine sed) [#/Area] Few Normal [facility] Comment on above: Order Comment: Speci men Type: URINE SPECIMENOrdering Facility: [facility] Address: [address] [place] [address] Performed By: #### 2 4356-8 ####COTTRE[facility] LABORATORYCLIA [id number] [address] [place] Glucose Test strip (U) [Mass/Vol] 3+ Abnormal Negative [facility] Comment on above: Order Comment: Speci men Type: URINE SPECIMENOrdering Facility: [facility] Address: [address] [place] [address] Performed By: #### 2 4356-8 ####COTTRE[facility] LABORATORYCLIA [id number] [place] [address] [place] Hemoglobin Ql (U) 1+ Abnormal Negative, Trace [facility] Comment on above: Order Comment: Speci men Type: URINE SPECIMENOrdering Facility: [facility] Address: [address] [place] [address] Performed By: #### 2 4356-8 ####COTTRE[facility] LABORATORYCLIA [id number] [place] [address] [place] Ketones Ql (U) 1+ Abnormal Negative [facility] Comment on above: Order Comment: Speci men Type: URINE SPECIMENOrdering Facility: [facility] Address: [address] [place] [address] Performed By: #### 2 4356-8 ####COTTRELL LABORATORYCLIA [id number] [place] [address] [place] Leukocyte esterase Test strip Ql (U) Negative Normal Negative [facility] Comment on above: Order Comment: Speci men Type: URINE SPECIMENOrdering Facility: [facility] Address: [address] [place] [address] Performed By: #### 2 4356-8 ####COTTRELL LABORATORYCLIA [id number] [place] [address] [place] Nitrite Ql (U) Negative Normal Negative [facility] Comment on above: Order Comment: Speci men Type: URINE SPECIMENOrdering Facility: [facility] Address: [address] [place] [address] Performed By: #### 2 4356-8 ####COTTRE[facility] LABORATORYCLIA [id number] [place] [address] [place] [facility] [place] pH (U) 6.0 [pH] Normal 5.0-8.0 [facility] Comment on above: Order Comment: Speci men Type: URINE SPECIMENOrdering Facility: [facility] Address: [address] [place] [address] Performed By: #### 2 4356-8 ####[place] LABORATORYCLIA [id number] [address] [place] Protein (U) [Mass/Vol] Negative Normal Negative [facility] Comment on above: Order Comment: Speci men Type: URINE SPECIMENOrdering Facility: [facility] Address: [address] [place] [address] Performed By: #### 2 4356-8 ####[facility] LABORATORYCLIA [id number] [place] [address] [place] RBC LM.HPF (Urine sed) [#/Area] 0-3 /HPF Normal 0-3 /HPF [facility] Comment on above: Order Comment: Speci men Type: URINE SPECIMENOrdering Facility: [facility] Address: [address] [place] [address] Performed By: #### 2 4356-8 ####COTT[facility] LABORATORYCLIA [id number] [address] [place] Specific gravity (U) [Rel density] <=1.005 Low 1.005-1.030 [facility] Comment on above: Order Comment: Speci men Type: URINE SPECIMENOrdering Facility: [facility] Address: [address] [address] Performed By: #### 2 4356-8 ####COTT[facility] LABORATORYCLIA [id number] [address] Urobilinogen Ql (U) 0.2 EU/dL Normal 0.2-1.0 EU/dL [facility] Comment on above: Order Comment: Speci men Type: URINE SPECIMENOrdering Facility: [facility] Address: [address] [place] [address] Performed By: #### 2 4356-8 ####COTTRE[facility] LABORATORYCLIA [id number] [place] [address] [place] WBC LM.HPF (Urine sed) [#/Area] 0-5 /HPF Normal 0-5 /HPF [facility] Comment on above: Order Comment: Speci men Type: URINE SPECIMENOrdering Facility: [facility] Address: [address] [place] [address] Performed By: #### 2 4356-8 ####C[facility] LABORATORYCLIA [id number] [address] [place] Basic metabolic 2000 panelon 09-03-2022 Anion gap [Moles/Vol] 16 mmol/L Normal 9-18 [facility] Comment on above: Order Comment: Speci men Type: BLOOD SPECIMENOrdering Facility: [facility] Address: [address] [place] [address] Performed By: #### 2 4321-2 ####[facility] LABORATORYCLIA [id number] [place] [address] [place] Calcium [Mass/Vol] 9.0 mg/dL Normal 8.5-10.2 [facility] Comment on above: Order Comment: Speci men Type: BLOOD SPECIMENOrdering Facility: [facility] Address: [address] [place] [address] Performed By: #### 2 4321-2 ####[facility] LABORATORYCLIA [id number] [place] [address] [place] Chloride [Moles/Vol] 96 mmol/L Low 97-105 [facility] Comment on above: Order Comment: Reginald vieira Type: BLOOD SPECIMENOrdering Facility: [facility] Address: [address] [address] Performed By: #### 2 4321-2 ####C[facility] LABORATORYCLIA [id number] [place] [address] [place] CO2 [Moles/Vol] 22 mmol/L Normal 22-30 [facility] Comment on above: Order Comment: Keyuri men Type: BLOOD SPECIMENOrdering Facility: [facility] Address: [address] [place] [address] Performed By: #### 2 4321-2 ####[place] LABORATORYCLIA [id number] [address] [place] Creatinine [Mass/Vol] 0.30 mg/dL Low 0.58-0.96 [facility] Comment on above: Order Comment: Reginald dariel Type: BLOOD SPECIMENOrdering Facility: [facility] Address: [address] [place] [address] Performed By: #### 2 4321-2 ####[place] LABORATORYCLIA [id number] [place] [address] [place] GFR/1.73 sq M.predicted among non-blacks MDRD (S/P/Bld) [Vol rate/Area] mL/min/{1.73_m2} Normal >=60 [facility] Comment on above: Order Comment: Reginald dariel Type: BLOOD SPECIMENOrdering Facility: [facility] Address: [address] [place] [address] Result Comment: Steffi mated Glomerular Filtration Rate (eGFR) is calculated using the 2020 CKD-EPI creatinine equation. This equation utilizes serum creatinine, sex, and age as parameters. The creatinine assay has traceable calibration to isotope dilution-mass spectrometry. Refer to KDIGO guidelines for clinical interpretation. In patients with unstable renal function, e.g. those with acute kidney injury, the eGFR may not accurately reflect actual GFR. Performed By: #### 2 4321-2 ####[facility] LABORATORYCLIA [id number] [place] [id number] [place] Glucose [Mass/Vol] 275 mg/dL High 74-99 [facility] Comment on above: Order Comment: Reginald vieira Type: BLOOD SPECIMENOrdering Facility: [facility] Address: [place] [address] Result Comment: The [place] [employer] (ADA) provides guidance for cutoff values for fasting glucose and random glucose. The ADA defines fasting as no caloric intake for at least 8 hours. Fasting plasma glucose results between 100 to 125 mg/dL indicate increased risk for diabetes (prediabetes).Fasting plasma glucose results greater than or equal to 126 mg/dL meet the criteria for diagnosis of diabetes. In the absence of unequivocal hyperglycemia, results should be confirmed by repeat testing. In a patient with classic symptoms of hyperglycemia or hyperglycemic crisis, random plasma glucose results greater than or equal to 200 mg/dL meet the criteria for diagnosis of diabetes.Reference: Standards of Medical Care in Diabetes 2016, [place] [employer]. Diabetes Care. 2016.39(Suppl 1). Performed By: #### 2 4321-2 ####[facility]OTT[facility] LABORATORYCLIA [id number] [place] [address] [place] Potassium [Moles/Vol] 4.2 mmol/L Normal 3.7-5.1 [facility] Comment on above: Order Comment: Reginald vieira Type: BLOOD SPECIMENOrdering Facility: [facility] Address: [place] [address] Performed By: #### 2 4321-2 ####C[facility] LABORATORYCLIA [id number] [place] [address] [place] Sodium [Moles/Vol] 134 mmol/L Low 136-144 [facility] Comment on above: Order Comment: Keyuri men Type: BLOOD SPECIMENOrdering Facility: [facility] Address: [place] [address] Performed By: #### 2 4321-2 ####C[facility] LABORATORYCLIA [id number] [place] [address] [place] Urea nitrogen [Mass/Vol] 4 mg/dL Low 7-21 [facility] Comment on above: Order Comment: Reginald men Type: BLOOD SPECIMENOrdering Facility: [facility] Address: [place] [address] Performed By: #### 2 4321-2 ####COTT[facility] LABORATORYCLIA [id number] [place] [address] [place] CBC W Auto Differential pane l (Bld)on 09-03-2022 Basophils (Bld) [#/Vol] 0.06 10*3/uL Normal <0.11 [facility] Comment on above: Order Comment: Speci men Type: BLOOD SPECIMENOrdering Facility: [facility] Address: [address] [place] [address] Performed By: #### 5 7021-8 ####COTT[facility] LABORATORYCLIA [id number] [place] [address] [place] Basophils/100 WBC (Bld) 0.5 % Normal [facility] Comment on above: Order Comment: Speci men Type: BLOOD SPECIMENOrdering Facility: [facility] Address: [address] [place] [address] Performed By: #### 5 7021-8 ####COTT[facility] LABORATORYCLIA [id number] [address] [place] Differential cell count method Nom (Bld) Auto Normal [facility] Comment on above: Order Comment: Speci men Type: BLOOD SPECIMENOrdering Facility: [facility] Address: [address] [place] [address] Performed By: #### 5 7021-8 ####COTT[facility] LABORATORYCLIA [id number] [place] [address] [place] Eosinophils (Bld) [#/Vol] 10*3/uL Normal <0.46 [facility] Comment on above: Order Comment: Speci men Type: BLOOD SPECIMENOrdering Facility: [facility] Address: [address] [place] [address] Performed By: #### 5 7021-8 ####COTT[facility] LABORATORYCLIA [id number] [address] [place] Eosinophils/100 WBC (Bld) 0.1 % Normal [facility] Comment on above: Order Comment: Speci men Type: BLOOD SPECIMENOrdering Facility: [facility] Address: [address] [place] [address] Performed By: #### 5 7021-8 ####COTT[facility] LABORATORYCLIA [id number] [address] Erythrocyte distribution width (RBC) [Ratio] 11.4 % Low 11.5-15.0 [facility] Comment on above: Order Comment: Speci men Type: BLOOD SPECIMENOrdering Facility: [facility] Address: [address] [place] [address] Performed By: #### 5 7021-8 ####COTT[facility] LABORATORYCLIA [id number] [address] Hematocrit (Bld) [Volume fraction] 35.8 % Low 36.0-46.0 [facility] Comment on above: Order Comment: Speci men Type: BLOOD SPECIMENOrdering Facility: [facility] Address: [address] [place] [address] Performed By: #### 5 7021-8 ####COTT[facility] LABORATORYCLIA [id number] [address] [place] Hemoglobin (Bld) [Mass/Vol] 12.1 g/dL Normal 11.5-15.5 [facility] Comment on above: Order Comment: Speci men Type: BLOOD SPECIMENOrdering Facility: [facility] Address: [address] [place] [address] Performed By: #### 5 7021-8 ####COTT[facility] LABORATORYCLIA [id number] [address] [place] Immature granulocytes (Bld) [#/Vol] 0.08 10*3/uL Normal <0.10 [facility] Comment on above: Order Comment: Speci men Type: BLOOD SPECIMENOrdering Facility: [facility] Address: [address] [place] [address] Performed By: #### 5 7021-8 ####[facility] LABORATORYCLIA [id number] [address] Immature granulocytes/100 WBC (Bld) 0.7 % Normal [facility] Comment on above: Order Comment: Speci men Type: BLOOD SPECIMENOrdering Facility: [facility] Address: [address] [place] [address] Performed By: #### 5 7021-8 ####C[facility] LABORATORYCLIA [id number] [address] Lymphocytes (Bld) [#/Vol] 0.95 10*3/uL Low 1.00-4.00 [facility] Comment on above: Order Comment: Speci men Type: BLOOD SPECIMENOrdering Facility: [facility] Address: [address] [place] [address] Performed By: #### 5 7021-8 ####[facility] LABORATORYCLIA [id number] [address] Lymphocytes/100 WBC (Bld) 7.8 % Normal [facility] Comment on above: Order Comment: Speci men Type: BLOOD SPECIMENOrdering Facility: [facility] Address: [address] [place] [address] Performed By: #### 5 7021-8 ####[facility] LABORATORYCLIA [id number] [address] MCH (RBC) [Entitic mass] 30.0 pg Normal 26.0-34.0 [facility] Comment on above: Order Comment: Speci men Type: BLOOD SPECIMENOrdering Facility: [facility] Address: [address] [place] [address] Performed By: #### 5 7021-8 ####[facility] LABORATORYCLIA [id number] [address] MCHC (RBC) [Mass/Vol] 33.8 g/dL Normal 30.5-36.0 [facility] Comment on above: Order Comment: Speci men Type: BLOOD SPECIMENOrdering Facility: [facility] Address: [address] [place] [address] Performed By: #### 5 7021-8 ####[facility] LABORATORYCLIA [id number] [address] MCV (RBC) [Entitic vol] 88.8 fL Normal 80.0-100.0 [facility] Comment on above: Order Comment: Speci men Type: BLOOD SPECIMENOrdering Facility: [facility] Address: [address] [place] [address] Performed By: #### 5 7021-8 ####C[facility] LABORATORYCLIA [id number] [place] [address] [place] Monocytes (Bld) [#/Vol] 1.10 10*3/uL High <0.87 [facility] Comment on above: Order Comment: Speci men Type: BLOOD SPECIMENOrdering Facility: [facility] Address: [address] [place] [address] Performed By: #### 5 7021-8 ####[facility] LABORATORYCLIA [id number] [place] [address] [place] Monocytes/100 WBC (Bld) 9.0 % Normal [facility] Comment on above: Order Comment: Speci men Type: BLOOD SPECIMENOrdering Facility: [facility] Address: [address] [place] [address] Performed By: #### 5 7021-8 ####[facility] LABORATORYCLIA [id number] [place] [address] [place] Neutrophils (Bld) [#/Vol] 10.04 10*3/uL High 1.45-7.50 [facility] Comment on above: Order Comment: Speci men Type: BLOOD SPECIMENOrdering Facility: [facility] Address: [address] [place] [address] Performed By: #### 5 7021-8 ####[facility] LABORATORYCLIA [id number] [place] [address] [place] Neutrophils/100 WBC (Bld) 81.9 % Normal [facility] Comment on above: Order Comment: Speci men Type: BLOOD SPECIMENOrdering Facility: [facility] Address: [address] [place] [address] Performed By: #### 5 7021-8 ####[facility] LABORATORYCLIA [id number] [place] [address] [place] Nucleated RBC (Bld) [#/Vol] 10*3/uL Normal <0.01 [facility] Comment on above: Order Comment: Speci men Type: BLOOD SPECIMENOrdering Facility: [facility] Address: [address] [place] [address] Performed By: #### 5 7021-8 ####[facility] LABORATORYCLIA [id number] [place] [address] [place] Nucleated RBC/100 WBC (Bld) [Ratio] 0.0 /100 WBC Normal [facility] Comment on above: Order Comment: Speci men Type: BLOOD SPECIMENOrdering Facility: [facility] Address: [address] [place] [address] Performed By: #### 5 7021-8 ####[facility] LABORATORYCLIA [id number] [place] [address] [place] Platelet mean volume (Bld) [Entitic vol] 9.2 fL Normal 9.0-12.7 [facility] Comment on above: Order Comment: Speci men Type: BLOOD SPECIMENOrdering Facility: [facility] Address: [address] [address] Performed By: #### 5 7021-8 ####[facility] LABORATORYCLIA [id number] [place] [address] [place] Platelets (Bld) [#/Vol] 395 10*3/uL Normal 150-400 [facility] Comment on above: Order Comment: Speci men Type: BLOOD SPECIMENOrdering Facility: [facility] Address: [address] [address] Performed By: #### 5 7021-8 ####[facility] LABORATORYCLIA [id number] [place] [address] [place] RBC (Bld) [#/Vol] 4.03 10*6/uL Normal 3.90-5.20 [facility] Comment on above: Order Comment: Speci men Type: BLOOD SPECIMENOrdering Facility: [facility] Address: [address] [address] Performed By: #### 5 7021-8 ####[facility] LABORATORYCLIA [id number] [place] [address] [place] WBC (Bld) [#/Vol] 12.24 10*3/uL High 3.70-11.00 [facility] Comment on above: Order Comment: Speci men Type: BLOOD SPECIMENOrdering Facility: [facility] Address: [address] [place] [id number] Performed By: #### 5 7021-8 ####[place] LABORATORYCLIA [id number] [place] [address] [facility] ED NOTEon 09-03-2022 ED NOTE Normal [facility] ED NOTE HNO ID: [id number] Author: Juli Lacey, TAMARA Service: Nursing Author Type: Registered Nurse Type: ED Notes Filed: 09/03/2022 12:29 PM Note Text: SALLIE Summers agreeable to no repeat strep swab. [facility] ED NOTE HNO ID: [id number] Author: Juli Lacey RN Service: Nursing Author Type: Registered Nurse Type: ED Notes Filed: 09/03/2022 11:23 AM Note Text: Family remains bedside. Pt declined warm blanket offered. [facility] ED NOTE HNO ID: [id number] Author: Pawan Gaitan RN Service: ? Author Type: Registered Nurse Type: ED Notes Filed: 09/03/2022 9:59 AM Note Text: Xray at bedside [facility] ED NOTE Normal [facility] ED NOTE HNO ID: [id number] Author: Joby Denis RN Service: ? Author Type: Registered Nurse Type: ED Notes Filed: 09/03/2022 9:13 AM Note Text: Patient presents with sore throat, fever, and left eye irritation. [facility] ED PROV NOTEon 09-03-2022 ED PROV NOTE Normal [facility] Gas and Carbon monoxide pane l (BldV)on 09-03-2022 BASE DEFICIT, VENOUS -5 mmol/L Low -2-0 [facility] Comment on above: Order Comment: Speci men Type: VENOUS BLOOD SPECIMENOrdering Facility: [facility] Address: [place] [address] Performed By: #### 2 4344-4 ####[place] RESPIRATORYCLIA [id number] [facility] [id number] [address] Carboxyhemoglobin (BldV) [Mass fraction] 1.7 % Normal 0.0-2.0 [facility] Comment on above: Order Comment: Speci men Type: VENOUS BLOOD SPECIMENOrdering Facility: [facility] Address: [address] [place] [address] Result Comment: Carb oxyhemoglobin Reference Range for Smokers: 2.0-8.0% Performed By: #### 2 4344-4 ####[place] RESPIRATORYCLIA [id number] [facility]OS[facility] RESPIRAT[facility] [id number] [address] CO2 (BldV) [Partial pressure] 37 mm[Hg] Low 42-55 [facility] Comment on above: Order Comment: Keyuri dariel Type: VENOUS BLOOD SPECIMENOrdering Facility: [facility] Address: [address] [place] [address] Performed By: #### 2 4344-4 ####[place] [facility] [id number] [facility] RES[facility] [id number] [address] [address] CO2 adjusted to patient's actual temperature (BldV) [Partial pressure] Normal [facility] Comment on above: Order Comment: Speci men Type: VENOUS BLOOD SPECIMENOrdering Facility: [facility] Address: [address] [place] [address] Performed By: #### 2 4344-4 ####[place] [facility] [id number] [facility]OS[facility] RESPIRATORY [id number] [address] HCO3 (Bld) [Moles/Vol] 19 mmol/L Low 24-28 [facility] Comment on above: Order Comment: Speci men Type: VENOUS BLOOD SPECIMENOrdering Facility: [facility] Address: [address] [place] [address] Performed By: #### 2 4344-4 ####[facility] [id number] [facility] RESPIR[facility] [id number] [address] Hemoglobin (Bld) [Mass/Vol] 12.3 g/dL Normal 11.5-15.5 [facility] Comment on above: Order Comment: Speci men Type: VENOUS BLOOD SPECIMENOrdering Facility: [facility] Address: [address] [place] [address] Performed By: #### 2 4344-4 ####[facility] RESPIRATORYCLIA [id number] [facility] RESPIR[facility] [id number] [address] Lactate [Moles/Vol] 1.1 mmol/L Normal 0.5-2.2 [facility] Comment on above: Order Comment: Speci men Type: VENOUS BLOOD SPECIMENOrdering Facility: [facility] Address: [address] [place] [address] Performed By: #### 2 4344-4 ####[place] RESPIRATORYIA [id number] [facility]OS[facility] RES[facility]IR[facility] [id number] [address] O2 THERAPY RA=Room Air [facility] Comment on above: Order Comment: Speci men Type: VENOUS BLOOD SPECIMENOrdering Facility: [facility] Address: [address] [address] Performed By: #### 2 4344-4 ####[facility] RESPIRATORYCLIA [id number] [facility] RES[facility]IR[facility] [id number] [address] Oxygen (BldV) [Partial pressure] 42 mm[Hg] Normal 35-45 [facility] Comment on above: Order Comment: Speci men Type: VENOUS BLOOD SPECIMENOrdering Facility: [facility] Address: [address] Performed By: #### 2 4344-4 ####[facility] RESPIRATORYCLIA [id number] [facility] [id number] [address] Oxygen adjusted to patient's actual temperature (BldV) [Partial pressure] Normal [facility] Comment on above: Order Comment: Speci men Type: VENOUS BLOOD SPECIMENOrdering Facility: [facility] Address: [address] [address] Performed By: #### 2 4344-4 ####[facility] RESPIRATORYCLIA [id number] [facility]IR[facility] [id number] [address] [address] Oxyhemoglobin (BldV) [Mass fraction] 73 % Normal 60-85 [facility] Comment on above: Order Comment: Speci men Type: VENOUS BLOOD SPECIMENOrdering Facility: [facility] Address: [address] [address] Performed By: #### 2 4344-4 ####[facility] RESPIRATORYCLIA [id number] [id number] [address] pH (BldV) 7.34 [pH] Normal 7.32-7.42 [facility] Comment on above: Order Comment: Speci men Type: VENOUS BLOOD SPECIMENOrdering Facility: [facility] Address: [address] [place] [address] Performed By: #### 2 4344-4 ####[place] RESPIRATORYCLIA [id number] [facility] RESPIRAT[facility] [id number] [address] pH adjusted to patient's actual temperature (BldV) Normal [facility] Comment on above: Order Comment: Speci men Type: VENOUS BLOOD SPECIMENOrdering Facility: [facility] Address: [address] [place] [address] Performed By: #### 2 4344-4 ####[place] RESPIRATORYCLIA [id number] [facility] RESPIRAT[facility] [id number] [place] [place] [address] Potassium [Moles/Vol] 3.9 mmol/L Normal 3.5-5.0 [facility] Comment on above: Order Comment: Speci men Type: VENOUS BLOOD SPECIMENOrdering Facility: [facility] Address: [address] [place] [address] Performed By: #### 2 4344-4 ####[place] RESPIRATORYCLIA [id number] [facility] RESPIRAT[facility] [id number] [address] [place] [address] XR CHEST 1V FRONTAL PORTon 1 11-03-2021 XR CHEST 1V FRONTAL PORT Normal [facility] ED NOTEon 09-02-2022 ED NOTE HNO ID: [id number] Author: Stephanie S Jama, RN Service: ? Author Type: Registered Nurse Type: ED Notes Filed: 09/02/2022 6:22 AM Note Text: Patient presents with sore throat with difficulty swallowing and sinus pain Normal [facility] ED PROV NOTEon 09-02-2022 ED PROV NOTE Normal [facility] ED PROV NOTE Normal [facility] FLUABV+SARS-CoV-2+RSV Pnl Re sp KENNA+probeon 09-02-2022 FLUABV+SARS-CoV-2+RSV Pnl Resp KENNA+probe Normal [facility] Comment on above: Performed By: #### 9 5941-1 ####[place] LABORATORYCLIA [id number] [address] [place] Heteroph Ab Ser Ql LAon 08-20 Heterophile Ab LA Ql (S) Negative Normal Negative [facility] Comment on above: Order Comment: Speci dariel Type: BLOOD SPECIMENOrdering Facility: [facility] Address: [address] [address] Result Comment: Infe ctious Mononucleosis rapid test is used as an aid in diagnosis of acute infection with Beny-Patel virus (EBV). The antibody levels may occasionally remain elevated up to several months after a primary EBV infection. Final interpretation should be done in conjunction with EBV-specific serology and clinical correlation. False positive results may occasionally be seen with other infectious agents such as Cytomegalovirus, Toxoplasma, and HIV among others as well as non-infectious conditions such as lymphoma. Clinical correlation is required. Performed By: #### 5 213-4 ####[place] LABORATORYCLIA [id number] [place] [address] [place] Basic metabolic 2000 panelon 06-15-2022 Calcium [Mass/Vol] 9.3 mg/dL Normal 8.5-10.2 [facility] Comment on above: Order Comment: Reginald vieira Type: BLOOD SPECIMENOrdering Facility: [facility] Address: [address] [id number] Performed By: #### 2 4321-2 ####[place] LABORATORYCLIA [id number] [place] [address] [place] Chloride [Moles/Vol] 105 mmol/L Normal 97-105 [facility] Comment on above: Order Comment: Speci men Type: BLOOD SPECIMENOrdering Facility: [facility] Address: [address] [place] [address] Performed By: #### 2 4321-2 ####[facility] LABORATORYCLIA [id number] [place] [address] [place] CO2 [Moles/Vol] 20 mmol/L Low 22-30 [facility] Comment on above: Order Comment: Speci men Type: BLOOD SPECIMENOrdering Facility: [facility] Address: [address] [place] [address] Performed By: #### 2 4321-2 ####[place] LABORATORYCLIA [id number] [place] [address] [place] Glucose [Mass/Vol] 112 mg/dL High 74-99 [facility] Comment on above: Order Comment: Speci men Type: BLOOD SPECIMENOrdering Facility: [facility] Address: [address] [place] [address] Result Comment: The [place] [employer] (ADA) provides guidance for cutoff values for fasting glucose and random glucose. The ADA defines fasting as no caloric intake for at least 8 hours. Fasting plasma glucose results between 100 to 125 mg/dL indicate increased risk for diabetes (prediabetes).Fasting plasma glucose results greater than or equal to 126 mg/dL meet the criteria for diagnosis of diabetes. In the absence of unequivocal hyperglycemia, results should be confirmed by repeat testing. In a patient with classic symptoms of hyperglycemia or hyperglycemic crisis, random plasma glucose results greater than or equal to 200 mg/dL meet the criteria for diagnosis of diabetes.Reference: Standards of Medical Care in Diabetes 2016, [place] [employer]. Diabetes Care. 2016.39(Suppl 1). Performed By: #### 2 4321-2 ####[place] LABORATORYCLIA [id number] [place] [id number] [place] Potassium [Moles/Vol] 4.2 mmol/L Normal 3.7-5.1 [facility] Comment on above: Order Comment: Specvandana men Type: BLOOD SPECIMENOrdering Facility: [facility] Address: [address] [place] [address] Performed By: #### 2 4321-2 ####[facility] LABORATORYCLIA [id number] [place] [address] [place] Sodium [Moles/Vol] 137 mmol/L Normal 136-144 [facility] Comment on above: Order Comment: Speci men Type: BLOOD SPECIMENOrdering Facility: [facility] Address: [address] [place] [address] Performed By: #### 2 4321-2 ####[facility] LABORATORYCLIA [id number] [address] [place] Anion gap [Moles/Vol] 11 mmol/L Normal 9-18 [facility] Comment on above: Order Comment: Speci men Type: BLOOD SPECIMENOrdering Facility: [facility] Address: [address] [place] [address] Performed By: #### 2 4321-2 ####[facility] LABORATORYCLIA [id number] [place] [address] [place] Calcium [Mass/Vol] 8.9 mg/dL Normal 8.5-10.2 [facility] Comment on above: Order Comment: Speci men Type: BLOOD SPECIMENOrdering Facility: [facility] Address: [address] [place] [address] Performed By: #### 2 4321-2 ####[facility] LABORATORYCLIA [id number] [place] [address] [place] Chloride [Moles/Vol] 110 mmol/L High 97-105 [facility] Comment on above: Order Comment: Speci men Type: BLOOD SPECIMENOrdering Facility: [facility] Address: [address] [place] [address] Performed By: #### 2 4321-2 ####[facility] LABORATORYCLIA [id number] [place] [address] [place] CO2 [Moles/Vol] 19 mmol/L Low 22-30 [facility] Comment on above: Order Comment: Speci men Type: BLOOD SPECIMENOrdering Facility: [facility] Address: [address] [place] [address] Performed By: #### 2 4321-2 ####[place] LABORATORYCLIA [id number] [place] [address] [place] Creatinine [Mass/Vol] 0.34 mg/dL Low 0.58-0.96 [facility] Comment on above: Order Comment: Reginald vieira Type: BLOOD SPECIMENOrdering Facility: [facility] Address: [address] [place] [address] Performed By: #### 2 4321-2 ####[place] LABORATORYCLIA [id number] [address] [place] ESTIMATED GLOMERULAR FILTRATION RATE 149 mL/min/1.73m??? Normal >=60 [facility] Comment on above: Order Comment: Reginald vieira Type: BLOOD SPECIMENOrdering Facility: [facility] Address: [address] [place] [address] Result Comment: Steffi mated Glomerular Filtration Rate (eGFR) is calculated using the 2020 CKD-EPI creatinine equation. This equation utilizes serum creatinine, sex, and age as parameters. The creatinine assay has traceable calibration to isotope dilution-mass spectrometry. Refer to KDIGO guidelines for clinical interpretation. In patients with unstable renal function, e.g. those with acute kidney injury, the eGFR may not accurately reflect actual GFR. Performed By: #### 2 4321-2 ####[place] LABORATORYCLIA [id number] [address] [place] Glucose [Mass/Vol] 101 mg/dL High 74-99 [facility] Comment on above: Order Comment: Reginald dariel Type: BLOOD SPECIMENOrdering Facility: [facility] Address: [address] [place] [address] Result Comment: The [place] Diabetes [employer] (ADA) provides guidance for cutoff values for fasting glucose and random glucose. The ADA defines fasting as no caloric intake for at least 8 hours. Fasting plasma glucose results between 100 to 125 mg/dL indicate increased risk for diabetes (prediabetes).Fasting plasma glucose results greater than or equal to 126 mg/dL meet the criteria for diagnosis of diabetes. In the absence of unequivocal hyperglycemia, results should be confirmed by repeat testing. In a patient with classic symptoms of hyperglycemia or hyperglycemic crisis, random plasma glucose results greater than or equal to 200 mg/dL meet the criteria for diagnosis of diabetes.Reference: Standards of Medical Care in Diabetes 2016, [place] [employer]. Diabetes Care. 2016.39(Suppl 1). Performed By: #### 2 4321-2 ####[facility] LABORATORYCLIA [id number] [address] [place] [facility] Potassium [Moles/Vol] 4.3 mmol/L Normal 3.7-5.1 [facility] Comment on above: Order Comment: Speci men Type: BLOOD SPECIMENOrdering Facility: [facility] Address: [address] [place] [address] Performed By: #### 2 4321-2 ####[facility] LABORATORYCLIA [id number] [address] [place] [facility] Sodium [Moles/Vol] 140 mmol/L Normal 136-144 [facility] Comment on above: Order Comment: Reginald vieira Type: BLOOD SPECIMENOrdering Facility: [facility] Address: [address] [place] [address] Performed By: #### 2 4321-2 ####[facility] LABORATORYCLIA [id number] [place] [address] [place] Urea nitrogen [Mass/Vol] 2 mg/dL Low 7-21 [facility] Comment on above: Order Comment: Reginald vieira Type: BLOOD SPECIMENOrdering Facility: [facility] Address: [address] [place] [address] Performed By: #### 2 4321-2 ####[facility] LABORATORYCLIA [id number] [address] [place] [facility] Anion gap [Moles/Vol] 12 mmol/L Normal 9-18 [facility] Comment on above: Order Comment: Keyuri men Type: BLOOD SPECIMENOrdering Facility: [facility] Address: [address] [place] [address] Performed By: #### 2 4321-2 ####[facility] LABORATORYCLIA [id number] [place] [address] [place] Calcium [Mass/Vol] 8.8 mg/dL Normal 8.5-10.2 [facility] Comment on above: Order Comment: Speci men Type: BLOOD SPECIMENOrdering Facility: [facility] Address: [address] [place] [address] Performed By: #### 2 4321-2 ####[facility] LABORATORYCLIA [id number] [address] Chloride [Moles/Vol] 111 mmol/L High 97-105 [facility] Comment on above: Order Comment: Speci men Type: BLOOD SPECIMENOrdering Facility: [facility] Address: [address] [place] [address] Performed By: #### 2 4321-2 ####[facility] LABORATORYCLIA [id number] [address] [place] CO2 [Moles/Vol] 19 mmol/L Low 22-30 [facility] Comment on above: Order Comment: Speci men Type: BLOOD SPECIMENOrdering Facility: [facility] Address: [address] [place] [address] Performed By: #### 2 4321-2 ####[facility] LABORATORYCLIA [id number] [address] [facility] Creatinine [Mass/Vol] 0.35 mg/dL Low 0.58-0.96 [facility] Comment on above: Order Comment: Speci men Type: BLOOD SPECIMENOrdering Facility: [facility] Address: [address] [place] [address] Performed By: #### 2 4321-2 ####[facility] LABORATORYCLIA [id number] [address] ESTIMATED GLOMERULAR FILTRATION RATE 147 mL/min/1.73m??? Normal >=60 [facility] Comment on above: Order Comment: Speci men Type: BLOOD SPECIMENOrdering Facility: [facility] Address: [address] [place] [address] Result Comment: Steffi mated Glomerular Filtration Rate (eGFR) is calculated using the 2020 CKD-EPI creatinine equation. This equation utilizes serum creatinine, sex, and age as parameters. The creatinine assay has traceable calibration to isotope dilution-mass spectrometry. Refer to KDIGO guidelines for clinical interpretation. In patients with unstable renal function, e.g. those with acute kidney injury, the eGFR may not accurately reflect actual GFR. Performed By: #### 2 4321-2 ####[facility] LABORATORYCLIA [id number] [place] [address] [place] Glucose [Mass/Vol] 167 mg/dL High 74-99 [facility] Comment on above: Order Comment: Reginald vieira Type: BLOOD SPECIMENOrdering Facility: [facility] Address: [address] [place] [address] Result Comment: The [place] Diabetes Association (ADA) provides guidance for cutoff values for fasting glucose and random glucose. The ADA defines fasting as no caloric intake for at least 8 hours. Fasting plasma glucose results between 100 to 125 mg/dL indicate increased risk for diabetes (prediabetes).Fasting plasma glucose results greater than or equal to 126 mg/dL meet the criteria for diagnosis of diabetes. In the absence of unequivocal hyperglycemia, results should be confirmed by repeat testing. In a patient with classic symptoms of hyperglycemia or hyperglycemic crisis, random plasma glucose results greater than or equal to 200 mg/dL meet the criteria for diagnosis of diabetes.Reference: Standards of Medical Care in Diabetes 2016, [place] [employer]. Diabetes Care. 2016.39(Suppl 1). Performed By: #### 2 4321-2 ####[facility] LABORATORYCLIA [id number] [place] [address] [place] Potassium [Moles/Vol] 4.4 mmol/L Normal 3.7-5.1 [facility] Comment on above: Order Comment: Reginald vieira Type: BLOOD SPECIMENOrdering Facility: [facility] Address: [address] [address] Performed By: #### 2 4321-2 ####[facility] LABORATORYCLIA [id number] [place] [address] [place] Sodium [Moles/Vol] 142 mmol/L Normal 136-144 [facility] Comment on above: Order Comment: Reginald vieira Type: BLOOD SPECIMENOrdering Facility: [facility] Address: [address] [address] Performed By: #### 2 4321-2 ####[facility] LABORATORYCLIA [id number] [place] [address] [place] Urea nitrogen [Mass/Vol] 3 mg/dL Low 7-21 [facility] Comment on above: Order Comment: Speci men Type: BLOOD SPECIMENOrdering Facility: [facility] Address: [address] [place] [address] Performed By: #### 2 4321-2 ####[facility] LABORATORYCLIA [id number] [place] [address] [place] Anion gap [Moles/Vol] 13 mmol/L Normal 9-18 [facility] Comment on above: Order Comment: Speci men Type: BLOOD SPECIMENOrdering Facility: [facility] Address: [address] [place] [address] Performed By: #### 2 777-1, 22570-6, ####[facility] LABORATORYCLIA [id number] [place] [address] [place] Calcium [Mass/Vol] 8.8 mg/dL Normal 8.5-10.2 [facility] Comment on above: Order Comment: Speci men Type: BLOOD SPECIMENOrdering Facility: [facility] Address: [address] [place] [address] Performed By: #### 2 777-1, 27398-7, ####[facility] LABORATORYCLIA [id number] [place] [address] [place] Chloride [Moles/Vol] 111 mmol/L High 97-105 [facility] Comment on above: Order Comment: Speci men Type: BLOOD SPECIMENOrdering Facility: [facility] Address: [address] [address] Performed By: #### 2 777-1, 30898-9, ####[facility] LABORATORYCLIA [id number] [place] [address] [place] CO2 [Moles/Vol] 18 mmol/L Low 22-30 [facility] Comment on above: Order Comment: Speci men Type: BLOOD SPECIMENOrdering Facility: [facility] Address: [address] [place] [address] Performed By: #### 2 777-1, 57972-9, ####[place] LABORATORYCLIA [id number] [place] [address] [place] Creatinine [Mass/Vol] 0.42 mg/dL Low 0.58-0.96 [facility] Comment on above: Order Comment: [facility] Type: BLOOD SPECIMENOrdering Facility: [facility] Address: [address] [place], [place] [id number] Performed By: #### 2 777-1, 78646-8, ####[place] LABORATORYCLIA [id number] [place] [address] [place] ESTIMATED GLOMERULAR FILTRATION RATE 141 mL/min/1.73m??? Normal >=60 [facility] Comment on above: Order Comment: Keyur dariel Type: BLOOD SPECIMENOrdering Facility: [facility] Address: [address] [place] [address] Result Comment: Steffi mated Glomerular Filtration Rate (eGFR) is calculated using the 2020 CKD-EPI creatinine equation. This equation utilizes serum creatinine, sex, and age as parameters. The creatinine assay has traceable calibration to isotope dilution-mass spectrometry. Refer to KDIGO guidelines for clinical interpretation. In patients with unstable renal function, e.g. those with acute kidney injury, the eGFR may not accurately reflect actual GFR. Performed By: #### 2 777-1, 98090-1, ####[place] LABORATORYCLIA [id number] [place] [id number] [place] Glucose [Mass/Vol] 141 mg/dL High 74-99 [facility] Comment on above: Order Comment: Reginald dariel Type: BLOOD SPECIMENOrdering Facility: [facility] Address: [address] [place], [place] [id number] Result Comment: The [place] Diabetes Association (ADA) provides guidance for cutoff values for fasting glucose and random glucose. The ADA defines fasting as no caloric intake for at least 8 hours. Fasting plasma glucose results between 100 to 125 mg/dL indicate increased risk for diabetes (prediabetes).Fasting plasma glucose results greater than or equal to 126 mg/dL meet the criteria for diagnosis of diabetes. In the absence of unequivocal hyperglycemia, results should be confirmed by repeat testing. In a patient with classic symptoms of hyperglycemia or hyperglycemic crisis, random plasma glucose results greater than or equal to 200 mg/dL meet the criteria for diagnosis of diabetes.Reference: Standards of Medical Care in Diabetes 2016, [place] [employer]. Diabetes Care. 2016.39(Suppl 1). Performed By: #### 2 777-1, 25139-2, ####[facility] LABORATORYCLIA [id number] [place] [address] [place] Potassium [Moles/Vol] 4.5 mmol/L Normal 3.7-5.1 [facility] Comment on above: Order Comment: Reginald vieira Type: BLOOD SPECIMENOrdering Facility: [facility] Address: [address] [place] [address] Performed By: #### 2 777-1, 20824-6, ####[facility] LABORATORYCLIA [id number] [address] [place] Sodium [Moles/Vol] 142 mmol/L Normal 136-144 [facility] Comment on above: Order Comment: Reginald vieira Type: BLOOD SPECIMENOrdering Facility: [facility] Address: [address] [place] [address] Performed By: #### 2 777-1, , ####[facility] LABORATORYCLIA [id number] [place] [address] [place] Urea nitrogen [Mass/Vol] 4 mg/dL Low 7-21 [facility] Comment on above: Order Comment: Reginald vieira Type: BLOOD SPECIMENOrdering Facility: [facility] Address: [address] [address] Performed By: #### 2 777-1, , ####[facility] LABORATORYCLIA [id number] [address] [place] Anion gap [Moles/Vol] 18 mmol/L Normal 9-18 [facility] Comment on above: Order Comment: Reginald vieira Type: BLOOD SPECIMENOrdering Facility: [facility] Address: [address] Performed By: #### 2 4321-2 ####[facility] LABORATORYCLIA [id number] [place] [address] [place] Calcium [Mass/Vol] 8.3 mg/dL Low 8.5-10.2 [facility] Comment on above: Order Comment: Speci men Type: BLOOD SPECIMENOrdering Facility: [facility] Address: [address] [place] [address] Performed By: #### 2 4321-2 ####[facility] LABORATORYCLIA [id number] [place] [address] [place] Chloride [Moles/Vol] 107 mmol/L High 97-105 [facility] Comment on above: Order Comment: Speci men Type: BLOOD SPECIMENOrdering Facility: [facility] Address: [address] [place] [address] Performed By: #### 2 4321-2 ####[facility] LABORATORYCLIA [id number] [place] [address] [place] CO2 [Moles/Vol] 12 mmol/L Low 22-30 [facility] Comment on above: Order Comment: Speci men Type: BLOOD SPECIMENOrdering Facility: [facility] Address: [address] [place] [address] [place] [address] Performed By: #### 2 4321-2 ####[facility] LABORATORYCLIA [id number] [place] [address] [place] Creatinine [Mass/Vol] 0.40 mg/dL Low 0.58-0.96 [facility] Comment on above: Order Comment: Speci men Type: BLOOD SPECIMENOrdering Facility: [facility] Address: [address] [place] [address] Performed By: #### 2 4321-2 ####[facility] LABORATORYCLIA [id number] [address] [place] ESTIMATED GLOMERULAR FILTRATION RATE 143 mL/min/1.73m??? Normal >=60 [facility] Comment on above: Order Comment: Speci men Type: BLOOD SPECIMENOrdering Facility: [facility] Address: [address] [id number] Result Comment: Steffi mated Glomerular Filtration Rate (eGFR) is calculated using the 2020 CKD-EPI creatinine equation. This equation utilizes serum creatinine, sex, and age as parameters. The creatinine assay has traceable calibration to isotope dilution-mass spectrometry. Refer to KDIGO guidelines for clinical interpretation. In patients with unstable renal function, e.g. those with acute kidney injury, the eGFR may not accurately reflect actual GFR. Performed By: #### 2 4321-2 ####[place] [facility]ORATORYCLIA [id number] [place] [address] [place] Glucose [Mass/Vol] 190 mg/dL High 74-99 [facility] Comment on above: Order Comment: Reginald vieira Type: BLOOD SPECIMENOrdering Facility: [facility] Address: [address] [place] [address] Result Comment: The [place] [employer] (ADA) provides guidance for cutoff values for fasting glucose and random glucose. The ADA defines fasting as no caloric intake for at least 8 hours. Fasting plasma glucose results between 100 to 125 mg/dL indicate increased risk for diabetes (prediabetes).Fasting plasma glucose results greater than or equal to 126 mg/dL meet the criteria for diagnosis of diabetes. In the absence of unequivocal hyperglycemia, results should be confirmed by repeat testing. In a patient with classic symptoms of hyperglycemia or hyperglycemic crisis, random plasma glucose results greater than or equal to 200 mg/dL meet the criteria for diagnosis of diabetes.Reference: Standards of Medical Care in Diabetes 2016, [place] [employer]. Diabetes Care. 2016.39(Suppl 1). Performed By: #### 2 4321-2 ####[facility] [place] [facility]ORATORYCLIA [id number] [place] [id number] [place] Urea nitrogen [Mass/Vol] 5 mg/dL Low 7-21 [facility] Comment on above: Order Comment: Reginald vieira Type: BLOOD SPECIMENOrdering Facility: [facility] Address: [address] Performed By: #### 2 4321-2 ####[facility]ORATORYCLIA [id number] [place] [id number] [place] CBC panel Auto (Bld)on 06-15 Erythrocyte distribution width (RBC) [Ratio] 12.7 % Normal 11.5-15.0 [facility] Comment on above: Order Comment: Speci men Type: BLOOD SPECIMENOrdering Facility: [facility] Address: [address] [place] [address] Performed By: #### 5 8410-2 ####[facility]ATORYCLIA [id number] [address] Hematocrit (Bld) [Volume fraction] 37.3 % Normal 36.0-46.0 [facility] Comment on above: Order Comment: Speci men Type: BLOOD SPECIMENOrdering Facility: [facility] Address: [address] [place] [address] Performed By: #### 5 8410-2 ####[facility]ATORYCLIA [id number] [address] Hemoglobin (Bld) [Mass/Vol] 12.3 g/dL Normal 11.5-15.5 [facility] Comment on above: Order Comment: Speci men Type: BLOOD SPECIMENOrdering Facility: [facility] Address: [address] [place] [address] Performed By: #### 5 8410-2 ####[facility]ORATORYCLIA [id number] [address] MCH (RBC) [Entitic mass] 30.4 pg Normal 26.0-34.0 [facility] Comment on above: Order Comment: Speci men Type: BLOOD SPECIMENOrdering Facility: [facility] Address: [address] [place] [address] Performed By: #### 5 8410-2 ####[facility]ORATORYCLIA [id number] [address] MCHC (RBC) [Mass/Vol] 33.0 g/dL Normal 30.5-36.0 [facility] Comment on above: Order Comment: Speci men Type: BLOOD SPECIMENOrdering Facility: [facility] Address: [address] [place] [address] Performed By: #### 5 8410-2 ####[facility]ORATORYCLIA [id number] [place] [address] [place] MCV (RBC) [Entitic vol] 92.3 fL Normal 80.0-100.0 [facility] Comment on above: Order Comment: Speci men Type: BLOOD SPECIMENOrdering Facility: [facility] Address: [address] [place] [address] Performed By: #### 5 8410-2 ####[facility]ORATORYCLIA [id number] [place] [address] [place] Nucleated RBC (Bld) [#/Vol] 10*3/uL Normal <0.01 [facility] Comment on above: Order Comment: Speci men Type: BLOOD SPECIMENOrdering Facility: [facility] Address: [address] [place] [address] Performed By: #### 5 8410-2 ####[facility]ORATORYCLIA [id number] [address] [place] Platelet mean volume (Bld) [Entitic vol] 8.4 fL Low 9.0-12.7 [facility] Comment on above: Order Comment: Speci men Type: BLOOD SPECIMENOrdering Facility: [facility] Address: [address] [place] [address] Performed By: #### 5 8410-2 ####[facility]ORATORYCLIA [id number] [address] [place] Platelets (Bld) [#/Vol] 392 10*3/uL Normal 150-400 [facility] Comment on above: Order Comment: Speci men Type: BLOOD SPECIMENOrdering Facility: [facility] Address: [address] [place] [address] Performed By: #### 5 8410-2 ####[facility]ORATORYCLIA [id number] [address] [place] RBC (Bld) [#/Vol] 4.04 10*6/uL Normal 3.90-5.20 [facility] Comment on above: Order Comment: Speci men Type: BLOOD SPECIMENOrdering Facility: [facility] Address: [address] [place] [address] Performed By: #### 5 8410-2 ####[facility] [facility]ATORYCLIA [id number] [place] [address] [place] WBC (Bld) [#/Vol] 9.20 10*3/uL Normal 3.70-11.00 [facility] Comment on above: Order Comment: Speci men Type: BLOOD SPECIMENOrdering Facility: [facility] Address: [address] [place] [address] Performed By: #### 5 8410-2 ####[facility] [place] [facility]ATORYCLIA [id number] [address] CONSULTon 06-15-2022 CONSULT Normal [facility] HCG Preg Ur Qlon 06-15-2022 HCG ( test) Ql (U) Negative Normal Negative [facility] Comment on above: Order Comment: Speci men Type: URINE SPECIMENOrdering Facility: [facility] Address: [address] [place] [address] Result Comment: This test is intended to aid in the early detection of . Very dilute urine samples, as indicated by a low specific gravity, may not contain pharmacy sales representative levels of hCG. This test detects intact hCG only. This test does not reliably detect hCG degradation products, including free-beta subunit and beta-core fragment. Therefore, this test may show reduced reactivity in urine after 8 weeks gestation. A number of conditions other than , including trophoblastic disease and certain non-trophoblastic neoplasms cause elevated levels of hCG. As with any assay employing mouse antibodies, the possibility exists for interference by human anti-mouse antibodies (HAMA) in the specimen. The test provides a presumptive diagnosis for . Performed By: #### 2 106-3 ####[facility] [place] [facility]ORATORYCLIA [id number] [place] [id number] [place] Magnesium SerPl-mCncon 06-15 Magnesium [Mass/Vol] 1.9 mg/dL Normal 1.7-2.3 [facility] Comment on above: Order Comment: Speci men Type: BLOOD SPECIMENOrdering Facility: [facility] Address: [address] [place] [address] Performed By: #### 2 777-1, 65860-8, ####[place] [facility]ORATORYCLIA [id number] [address] OF [facility] NURSING PROGon 06-15-2022 NURSING PROG Normal [facility] Phosphate SerPl-mCncon 06-15 Phosphate [Mass/Vol] 2.3 mg/dL Low 2.7-4.8 [facility] Comment on above: Order Comment: Speci men Type: BLOOD SPECIMENOrdering Facility: [facility] Address: [address] [place] [address] Performed By: #### 2 777-1, 18548-1, ####[place] [facility]ORATORYCLIA [id number] [address] URINALYSIS, REFLEX MICROSCOP ICon 06-15-2022 Bacteria LM.HPF (Urine sed) [#/Area] Moderate Abnormal None Seen [facility] Comment on above: Order Comment: Speci men Type: URINE SPECIMENOrdering Facility: [facility] Address: [address] [place] [address] Performed By: #### L [id number] ####[facility] [facility]ORATORYCLIA [id number] [address] Bilirubin Ql (U) 2+ Abnormal Negative [facility] Comment on above: Order Comment: Speci men Type: URINE SPECIMENOrdering Facility: [facility] Address: [address] [place] [address] Result Comment: Sugg est correlation with clinical findings and serum bilirubin if clinically indicated. Performed By: #### L [id number] ####[facility] [facility]ATORYCLIA [id number] [address] Clarity (Unsp spec) Clear Normal Clear [facility] Comment on above: Order Comment: Speci men Type: URINE SPECIMENOrdering Facility: [facility] Address: [address] [place] [address] Performed By: #### L [id number] ####[facility]ORATORYCLIA [id number] [address] [place] Color (U) Yellow Normal Yellow [facility] Comment on above: Order Comment: Speci men Type: URINE SPECIMENOrdering Facility: [facility] Address: [address] [place] [address] Performed By: #### L [id number] ####[facility]ORATORYCLIA [id number] [place] [address] [place] Epithelial cells LM.HPF (Urine sed) [#/Area] Few Normal [facility] Comment on above: Order Comment: Speci men Type: URINE SPECIMENOrdering Facility: [facility] Address: [address] [place] [address] Performed By: #### L [id number] ####[facility]ORATORYCLIA [id number] [place] [address] [place] Glucose Test strip (U) [Mass/Vol] 1+ Abnormal Negative [facility] Comment on above: Order Comment: Speci men Type: URINE SPECIMENOrdering Facility: [facility] Address: [address] [place] [address] Performed By: #### L [id number] ####[facility]ORATORYCLIA [id number] [place] [address] [place] Hemoglobin Ql (U) Negative Normal Negative [facility] Comment on above: Order Comment: Speci men Type: URINE SPECIMENOrdering Facility: [facility] Address: [address] [place] [address] Performed By: #### L [id number] ####[facility]ORATORYCLIA [id number] [address] [place] Ketones Ql (U) 2+ Abnormal Negative [facility] Comment on above: Order Comment: Speci men Type: URINE SPECIMENOrdering Facility: [facility] Address: [address] [place] [address] Performed By: #### L [id number] ####[facility]ORATORYCLIA [id number] [address] [place] Leukocyte esterase Test strip Ql (U) Negative Normal Negative [facility] Comment on above: Order Comment: Speci men Type: URINE SPECIMENOrdering Facility: [facility] Address: [address] [place] [address] Performed By: #### L [id number] ####[facility]ORATORYCLIA [id number] [address] [place] Nitrite Ql (U) Negative Normal Negative [facility] Comment on above: Order Comment: Speci men Type: URINE SPECIMENOrdering Facility: [facility] Address: [address] [place] [address] Performed By: #### L [id number] ####[facility]ORATORYCLIA [id number] [address] [place] pH (U) 6.0 [pH] Normal 5.0-8.0 [facility] Comment on above: Order Comment: Speci men Type: URINE SPECIMENOrdering Facility: [facility] Address: [address] [place] [address] Performed By: #### L [id number] ####[facility]ORATORYCLIA [id number] [address] [place] Protein (U) [Mass/Vol] Trace Abnormal Negative [facility] Comment on above: Order Comment: Speci men Type: URINE SPECIMENOrdering Facility: [facility] Address: [address] [place] [address] Performed By: #### L [id number] ####[facility]ORATORYCLIA [id number] [address] [place] RBC LM.HPF (Urine sed) [#/Area] 0-3 /HPF Normal 0-3 /HPF [facility] Comment on above: Order Comment: Speci men Type: URINE SPECIMENOrdering Facility: [facility] Address: [address] [place] [address] Performed By: #### L [id number] ####[facility]ORATORYCLIA [id number] [address] [place] Specific gravity (U) [Rel density] >=1.030 High 1.005-1.030 [facility] Comment on above: Order Comment: Speci men Type: URINE SPECIMENOrdering Facility: [facility] Address: [address] [place] [address] Performed By: #### L [id number] ####[facility]ATORYCLIA [id number] [address] Urobilinogen Ql (U) 0.2 EU/dL Normal 0.2-1.0 EU/dL [facility] Comment on above: Order Comment: Speci men Type: URINE SPECIMENOrdering Facility: [facility] Address: [address] [place] [address] Performed By: #### L [id number] ####[place] [facility]ATORYCLIA [id number] [address] WBC LM.HPF (Urine sed) [#/Area] 0-5 /HPF Normal 0-5 /HPF [facility] Comment on above: Order Comment: Speci men Type: URINE SPECIMENOrdering Facility: [facility] Address: [address] [place] [address] Performed By: #### L [id number] ####[place] [facility]ATORYCLIA [id number] [address] [place] ALLIED HEALTHon 06-14-2022 ALLIED HEALTH Normal [facility] BETA HCG, QUANTITATIVE FOR E Don 06-14-2022 HCG.beta subunit Qn m[IU]/mL Normal <5.0 [facility] Comment on above: Order Comment: Speci men Type: BLOOD SPECIMENOrdering Facility: [facility] Address: [address] [place] [address] Result Comment: Nega tive Performed By: #### B HB, 2777-1, 3040-3, 08879-2, 23958-0, HCGED ####[place] [facility]ATORYCLIA [id number] [address] [place] Basic metabolic 2000 panelon 06-14-2022 Anion gap [Moles/Vol] 23 mmol/L High 9-18 [facility] Comment on above: Order Comment: Speci men Type: BLOOD SPECIMENOrdering Facility: [facility] Address: [address] [place] [address] Performed By: #### 2 4321-2 ####[facility]ORATORYCLIA [id number] [address] [place] Calcium [Mass/Vol] 8.7 mg/dL Normal 8.5-10.2 [facility] Comment on above: Order Comment: Speci men Type: BLOOD SPECIMENOrdering Facility: [facility] Address: [address] [place] [address] Performed By: #### 2 4321-2 ####[facility]ORATORYCLIA [id number] [place] [address] [place] Chloride [Moles/Vol] 106 mmol/L High 97-105 [facility] Comment on above: Order Comment: Speci men Type: BLOOD SPECIMENOrdering Facility: [facility] Address: [address] [place] [address] Performed By: #### 2 4321-2 ####[facility]ORATORYCLIA [id number] [place] [address] [place] CO2 [Moles/Vol] 10 mmol/L Low 22-30 [facility] Comment on above: Order Comment: Speci men Type: BLOOD SPECIMENOrdering Facility: [facility] Address: [address] [place] [address] Performed By: #### 2 4321-2 ####[facility]ORATORYCLIA [id number] [address] [place] Creatinine [Mass/Vol] 0.50 mg/dL Low 0.58-0.96 [facility] Comment on above: Order Comment: Speci men Type: BLOOD SPECIMENOrdering Facility: [facility] Address: [address] [place] [address] Performed By: #### 2 4321-2 ####[facility]ORATORYCLIA [id number] [address] ESTIMATED GLOMERULAR FILTRATION RATE 135 mL/min/1.73m??? Normal >=60 [facility] Comment on above: Order Comment: Speci men Type: BLOOD SPECIMENOrdering Facility: [facility] Address: [address] [place] [id number] Result Comment: Steffi mated Glomerular Filtration Rate (eGFR) is calculated using the 2020 CKD-EPI creatinine equation. This equation utilizes serum creatinine, sex, and age as parameters. The creatinine assay has traceable calibration to isotope dilution-mass spectrometry. Refer to KDIGO guidelines for clinical interpretation. In patients with unstable renal function, e.g. those with acute kidney injury, the eGFR may not accurately reflect actual GFR. Performed By: #### 2 4321-2 ####[place] [facility]ORATORYCLIA [id number] [place] [id number] [place] Glucose [Mass/Vol] 159 mg/dL High 74-99 [facility] Comment on above: Order Comment: Reginald vieira Type: BLOOD SPECIMENOrdering Facility: [facility] Address: [address] [place] [place] [phone] Result Comment: The [place] Diabetes [employer] (ADA) provides guidance for cutoff values for fasting glucose and random glucose. The ADA defines fasting as no caloric intake for at least 8 hours. Fasting plasma glucose results between 100 to 125 mg/dL indicate increased risk for diabetes (prediabetes).Fasting plasma glucose results greater than or equal to 126 mg/dL meet the criteria for diagnosis of diabetes. In the absence of unequivocal hyperglycemia, results should be confirmed by repeat testing. In a patient with classic symptoms of hyperglycemia or hyperglycemic crisis, random plasma glucose results greater than or equal to 200 mg/dL meet the criteria for diagnosis of diabetes.Reference: Standards of Medical Care in Diabetes 2016, [place] [employer]. Diabetes Care. 2016.39(Suppl 1). Performed By: #### 2 4321-2 ####[place] [facility]ATORYCLIA [id number] [place] [id number] [place] Potassium [Moles/Vol] 4.2 mmol/L Normal 3.7-5.1 [facility] Comment on above: Order Comment: Reginald vieira Type: BLOOD SPECIMENOrdering Facility: [facility] Address: [address] [facility] [address] [place] [phone] Performed By: #### 2 4321-2 ####[facility] [facility]ORATORYCLIA [id number] [place] [address] [place] Sodium [Moles/Vol] 139 mmol/L Normal 136-144 [facility] Comment on above: Order Comment: Speci men Type: BLOOD SPECIMENOrdering Facility: [facility] Address: [address] [place] [address] Performed By: #### 2 4321-2 ####[facility]ORATORYCLIA [id number] [address] [place] [facility] Urea nitrogen [Mass/Vol] 6 mg/dL Low 7-21 [facility] Comment on above: Order Comment: Speci men Type: BLOOD SPECIMENOrdering Facility: [facility] Address: [address] [place] [address] Performed By: #### 2 4321-2 ####[facility]ORATORYCLIA [id number] [address] [place] CBC W Auto Differential pane l (Bld)on 06-14-2022 Basophils/100 WBC (Bld) 3.0 % Normal [facility] Comment on above: Order Comment: Speci men Type: BLOOD SPECIMENOrdering Facility: [facility] Address: [address] [place] [address] Performed By: #### 5 7021-8 ####[facility]ORATORYCLIA [id number] [address] Differential cell count method Nom (Bld) Manual Normal [facility] Comment on above: Order Comment: Speci men Type: BLOOD SPECIMENOrdering Facility: [facility] Address: [address] [place] [address] Performed By: #### 5 7021-8 ####[facility]ORATORYCLIA [id number] [address] [place] [facility] Eosinophils (Bld) [#/Vol] 0.00 10*3/uL Normal <0.46 [facility] Comment on above: Order Comment: Speci men Type: BLOOD SPECIMENOrdering Facility: [facility] Address: [address] [place] [address] Performed By: #### 5 7021-8 ####[facility]ORATORYCLIA [id number] [place] [address] [place] Eosinophils/100 WBC (Bld) 0.0 % Normal [facility] Comment on above: Order Comment: Speci men Type: BLOOD SPECIMENOrdering Facility: [facility] Address: [address] [place] [address] Performed By: #### 5 7021-8 ####[facility]ORATORYCLIA [id number] [place] [address] [place] Erythrocyte distribution width (RBC) [Ratio] 12.6 % Normal 11.5-15.0 [facility] Comment on above: Order Comment: Speci men Type: BLOOD SPECIMENOrdering Facility: [facility] Address: [address] [place] [address] Performed By: #### 5 7021-8 ####[facility]ORATORYCLIA [id number] [place] [address] [place] Hematocrit (Bld) [Volume fraction] 42.6 % Normal 36.0-46.0 [facility] Comment on above: Order Comment: Speci men Type: BLOOD SPECIMENOrdering Facility: [facility] Address: [address] [place] [address] Performed By: #### 5 7021-8 ####[facility]ORATORYCLIA [id number] [place] [address] [place] Hemoglobin (Bld) [Mass/Vol] 13.7 g/dL Normal 11.5-15.5 [facility] Comment on above: Order Comment: Speci men Type: BLOOD SPECIMENOrdering Facility: [facility] Address: [address] [place] [address] Performed By: #### 5 7021-8 ####[facility] LABORATORYCLIA [id number] [place] [address] [place] Lymphocytes (Bld) [#/Vol] 1.77 10*3/uL Normal 1.00-4.00 [facility] Comment on above: Order Comment: Speci men Type: BLOOD SPECIMENOrdering Facility: [facility] Address: [address] [place] [address] Performed By: #### 5 7021-8 ####[facility] LABORATORYCLIA [id number] [address] [place] [facility] Lymphocytes/100 WBC (Bld) 19.0 % Normal [facility] Comment on above: Order Comment: Speci men Type: BLOOD SPECIMENOrdering Facility: [facility] Address: [address] [place] [address] Performed By: #### 5 7021-8 ####[facility] LABORATORYCLIA [id number] [place] [address] [place] MCH (RBC) [Entitic mass] 29.8 pg Normal 26.0-34.0 [facility] Comment on above: Order Comment: Speci men Type: BLOOD SPECIMENOrdering Facility: [facility] Address: [address] [place] [address] Performed By: #### 5 7021-8 ####[facility]ORATORYCLIA [id number] [address] [place] MCHC (RBC) [Mass/Vol] 32.2 g/dL Normal 30.5-36.0 [facility] Comment on above: Order Comment: Speci men Type: BLOOD SPECIMENOrdering Facility: [facility] Address: [address] [place] [address] Performed By: #### 5 7021-8 ####[facility] LABORATORYCLIA [id number] [address] MCV (RBC) [Entitic vol] 92.8 fL Normal 80.0-100.0 [facility] Comment on above: Order Comment: Speci men Type: BLOOD SPECIMENOrdering Facility: [facility] Address: [address] [place] [address] Performed By: #### 5 7021-8 ####[facility] LABORATORYCLIA [id number] [address] [place] Metamyelocytes/100 WBC (Bld) 1.0 % Normal [facility] Comment on above: Order Comment: Speci men Type: BLOOD SPECIMENOrdering Facility: [facility] Address: [address] [place] [address] Performed By: #### 5 7021-8 ####[facility]ORATORYCLIA [id number] [address] MYELO% 3.0 % Normal [facility] Comment on above: Order Comment: Speci men Type: BLOOD SPECIMENOrdering Facility: [facility] Address: [address] [place] [address] Performed By: #### 5 7021-8 ####[facility] LABORATORYCLIA [id number] [place] [address] [place] Neutrophils (Bld) [#/Vol] 6.25 10*3/uL Normal 1.45-7.50 [facility] Comment on above: Order Comment: Speci men Type: BLOOD SPECIMENOrdering Facility: [facility] Address: [address] [place] [address] Performed By: #### 5 7021-8 ####[facility]ORATORYCLIA [id number] [address] [place] Neutrophils/100 WBC (Bld) 67.0 % Normal [facility] Comment on above: Order Comment: Speci men Type: BLOOD SPECIMENOrdering Facility: [facility] Address: [address] [place] [address] Performed By: #### 5 7021-8 ####[facility]ORATORYCLIA [id number] [address] Nucleated RBC/100 WBC (Bld) [Ratio] 0.0 /100 WBC Normal [facility] Comment on above: Order Comment: Speci men Type: BLOOD SPECIMENOrdering Facility: [facility] Address: [address] [place] [address] Performed By: #### 5 7021-8 ####[facility] LABORATORYCLIA [id number] [address] PLATELET ESTIMATE Increased Normal [facility] Comment on above: Order Comment: Speci men Type: BLOOD SPECIMENOrdering Facility: [facility] Address: [address] [place] [address] Performed By: #### 5 7021-8 ####[facility] LABORATORYCLIA [id number] [address] Platelet mean volume (Bld) [Entitic vol] 8.6 fL Low 9.0-12.7 [facility] Comment on above: Order Comment: Speci men Type: BLOOD SPECIMENOrdering Facility: [facility] Address: [address] [place] [address] Performed By: #### 5 7021-8 ####COTTRELL LABORATORYCLIA [id number] [address] [place] Platelets (Bld) [#/Vol] 461 10*3/uL High 150-400 [facility] Comment on above: Order Comment: Speci men Type: BLOOD SPECIMENOrdering Facility: [facility] Address: [address] [place] [address] Performed By: #### 5 7021-8 ####[place] LABORATORYCLIA [id number] [address] [place] RBC (Bld) [#/Vol] 4.59 10*6/uL Normal 3.90-5.20 [facility] Comment on above: Order Comment: Speci men Type: BLOOD SPECIMENOrdering Facility: [facility] Address: [address] [place] [address] Performed By: #### 5 7021-8 ####COTTRELL LABORATORYCLIA [id number] [address] RED CELL MORPH Reviewed: unremarkable Normal [facility] Comment on above: Order Comment: Speci men Type: BLOOD SPECIMENOrdering Facility: [facility] Address: [address] [place] [address] Performed By: #### 5 7021-8 ####COTT[facility] LABORATORYCLIA [id number] [address] WAM - ABS BASO 0.28 k/uL High <0.11 [facility] Comment on above: Order Comment: Speci men Type: BLOOD SPECIMENOrdering Facility: [facility] Address: [address] [place] [address] Performed By: #### 5 7021-8 ####COTTRELL LABORATORYCLIA [id number] [address] WAM - ABS MONO 0.65 k/uL Normal <0.87 [facility] Comment on above: Order Comment: Speci men Type: BLOOD SPECIMENOrdering Facility: [facility] Address: [address] [place] [address] Performed By: #### 5 7021-8 ####COTTRELL LABORATORYCLIA [id number] [address] WAM - MONO% 7.0 % Normal [facility] Comment on above: Order Comment: Speci men Type: BLOOD SPECIMENOrdering Facility: [facility] Address: [address] [place] [address] Performed By: #### 5 7021-8 ####COTTRE[facility] LABORATORYCLIA [id number] [address] WAM ABSOLUTE NRBC <0.01 Normal <0.01 [facility] Comment on above: Order Comment: Speci men Type: BLOOD SPECIMENOrdering Facility: [facility] Address: [address] [place] [address] Performed By: #### 5 7021-8 ####COTTRE[facility] LABORATORYCLIA [id number] [address] WBC (Bld) [#/Vol] 9.33 10*3/uL Normal 3.70-11.00 [facility] Comment on above: Order Comment: Speci men Type: BLOOD SPECIMENOrdering Facility: [facility] Address: [address] [place] [address] Performed By: #### 5 7021-8 ####COTT[facility] LABORATORYCLIA [id number] [address] WBC Left Shift Ql (Bld) Present Normal [facility] Comment on above: Order Comment: Speci men Type: BLOOD SPECIMENOrdering Facility: [facility] Address: [address] [place] [address] Performed By: #### 5 7021-8 ####[facility] LABORATORYCLIA [id number] [place] [address] [place] CT ABD/PEL W IVCONon 022 CT ABD/PEL W IVCON Normal [facility] Comprehensive metabolic 2000 panelon 06-14-2022 Albumin [Mass/Vol] 3.9 g/dL Normal 3.9-4.9 [facility] Comment on above: Order Comment: Speci men Type: BLOOD SPECIMENOrdering Facility: [facility] Address: [address] [place] [address] Performed By: #### B HB, 2777-1, 3040-3, 94852-3, 18732-1, HCGED ####[place] LABORATORYCLIA [id number] [place] [address] [place] ALP [Catalytic activity/Vol] 191 U/L High 34-123 [facility] Comment on above: Order Comment: Speci men Type: BLOOD SPECIMENOrdering Facility: [facility] Address: [address] [place] [address] Performed By: #### B HB, 2777-1, 3040-3, 48785-1, 09324-9, HCGED ####[place] LABORATORYCLIA [id number] [place] [address] [place] ALT [Catalytic activity/Vol] 13 U/L Normal 7-38 [facility] Comment on above: Order Comment: Speci men Type: BLOOD SPECIMENOrdering Facility: [facility] Address: [address] [place] [address] Performed By: #### B HB, 2777-1, 3040-3, 35916-6, 56900-9, HCGED ####[place] LABORATORYCLIA [id number] [place] [id number] [place] [facility] Anion gap [Moles/Vol] 27 mmol/L High 9-18 [facility] Comment on above: Order Comment: Speci men Type: BLOOD SPECIMENOrdering Facility: [facility] Address: [address] [place] [address] Performed By: #### B HB, 2777-1, 3040-3, 77887-1, 56113-8, HCGED ####COTTRE[facility] LABORATORYCLIA [id number] [place] [address] [place] AST [Catalytic activity/Vol] 18 U/L Normal 13-35 [facility] Comment on above: Order Comment: Speci men Type: BLOOD SPECIMENOrdering Facility: [facility] Address: [address] [place] [address] Performed By: #### B HB, 2777-1, 3040-3, 30643-2, 02071-2, HCGED ####COTTRE[facility] LABORATORYCLIA [id number] [place] [address] [place] Bilirubin [Mass/Vol] 0.4 mg/dL Normal 0.2-1.3 [facility] Comment on above: Order Comment: Speci men Type: BLOOD SPECIMENOrdering Facility: [facility] Address: [address] [place] [address] Performed By: #### B HB, 7-1, 3040-3, 87824-1, 42236-6, HCGED ####[place] LABORATORYCLIA [id number] [place] [address] [place] Calcium [Mass/Vol] 9.1 mg/dL Normal 8.5-10.2 [facility] Comment on above: Order Comment: Speci men Type: BLOOD SPECIMENOrdering Facility: [facility] Address: [address] [place] [address] Performed By: #### B HB, 7-1, 3040-3, 38517-7, 16022-3, HCGED ####[place] LABORATORYCLIA [id number] [place] [address] [place] Chloride [Moles/Vol] 97 mmol/L Normal 97-105 [facility] Comment on above: Order Comment: Speci men Type: BLOOD SPECIMENOrdering Facility: [facility] Address: [address] [place] [address] Performed By: #### B HB, 2777-1, 3040-3, 85817-6, 80145-5, HCGED ####[facility] LABORATORYCLIA [id number] [place] [address] [place] CO2 [Moles/Vol] 8 mmol/L Low 22-30 [facility] Comment on above: Order Comment: Reginald vieira Type: BLOOD SPECIMENOrdering Facility: [facility] Address: [address] [place] [address] Performed By: #### B HB, 2777-1, 3040-3, 68353-2, 39335-5, HCGED ####[facility] LABORATORYCLIA [id number] [place] [address] [place] Creatinine [Mass/Vol] 0.46 mg/dL Low 0.58-0.96 [facility] Comment on above: Order Comment: Reginald vieira Type: BLOOD SPECIMENOrdering Facility: [facility] Address: [address] [place] [address] Performed By: #### B HB, 2777-1, 3040-3, 22502-5, 70729-9, HCGED ####[facility] LABORATORYCLIA [id number] [place] [address] [place] ESTIMATED GLOMERULAR FILTRATION RATE 138 mL/min/1.73m??? Normal >=60 [facility] Comment on above: Order Comment: Reginald vieira Type: BLOOD SPECIMENOrdering Facility: [facility] Address: [address] [place] [address] Result Comment: Steffi mated Glomerular Filtration Rate (eGFR) is calculated using the 2020 CKD-EPI creatinine equation. This equation utilizes serum creatinine, sex, and age as parameters. The creatinine assay has traceable calibration to isotope dilution-mass spectrometry. Refer to KDIGO guidelines for clinical interpretation. In patients with unstable renal function, e.g. those with acute kidney injury, the eGFR may not accurately reflect actual GFR. Performed By: #### B HB, 2777-1, 3040-3, 20923-7, 05682-4, HCGED ####COTT[facility] LABORATORYCLIA [id number] [place] [address] [place] Glucose [Mass/Vol] 445 mg/dL High 74-99 [facility] Comment on above: Order Comment: Reginald vieira Type: BLOOD SPECIMENOrdering Facility: [facility] Address: [address] [place], [place] [address] Result Comment: The [place] [employer] (ADA) provides guidance for cutoff values for fasting glucose and random glucose. The ADA defines fasting as no caloric intake for at least 8 hours. Fasting plasma glucose results between 100 to 125 mg/dL indicate increased risk for diabetes (prediabetes).Fasting plasma glucose results greater than or equal to 126 mg/dL meet the criteria for diagnosis of diabetes. In the absence of unequivocal hyperglycemia, results should be confirmed by repeat testing. In a patient with classic symptoms of hyperglycemia or hyperglycemic crisis, random plasma glucose results greater than or equal to 200 mg/dL meet the criteria for diagnosis of diabetes.Reference: Standards of Medical Care in Diabetes 2016, [place] [employer]. Diabetes Care. 2016.39(Suppl 1). Performed By: #### B HB, 2777-1, 3040-3, 38026-4, 76533-4, HCGED ####[facility] LABORATORYCLIA [id number] [place] [address] [place] Potassium [Moles/Vol] 5.0 mmol/L Normal 3.7-5.1 [facility] Comment on above: Order Comment: Speci men Type: BLOOD SPECIMENOrdering Facility: [facility] Address: [address] [place], [place] [address] Performed By: #### B HB, 2777-1, 3040-3, 84995-0, 38229-2, HCGED ####[facility] LABORATORYCLIA [id number] [place] [address] [place] Protein [Mass/Vol] 7.7 g/dL Normal 6.3-8.0 [facility] Comment on above: Order Comment: Speci men Type: BLOOD SPECIMENOrdering Facility: [facility] Address: [address] [place], [place] [address] Performed By: #### B HB, 2777-1, 3040-3, 90217-9, 56343-2, HCGED ####[facility] LABORATORYCLIA [id number] [place] [address] [place] Sodium [Moles/Vol] 132 mmol/L Low 136-144 [facility] Comment on above: Order Comment: Speci men Type: BLOOD SPECIMENOrdering Facility: [facility] Address: [address] [place] [address] Performed By: #### B HB, 2777-1, 3040-3, 24523-0, 69619-7, HCGED ####[place] LABORATORYCLIA [id number] [place] [address] [place] Urea nitrogen [Mass/Vol] 5 mg/dL Low 7-21 [facility] Comment on above: Order Comment: Speci men Type: BLOOD SPECIMENOrdering Facility: [facility] Address: [address] [place] [address] Performed By: #### B HB, 2777-1, 3040-3, 50517-6, 69702-0, HCGED ####[place] LABORATORYCLIA [id number] [place] [address] [place] ECG COMPLETEon 06-14-2022 ECG COMPLETE Normal [facility] ED NOTEon 06-14-2022 ED NOTE HNO ID: [id number] Author: Herve Copeland RN Service: ? Author Type: Registered Nurse Type: ED Notes Filed: 06/14/2022 5:49 PM Note Text: Pt refusing second IV at this time. Pt educated on medical necessity for second iv, pt still refusing. aware. [facility] ED NOTE HNO ID: [id number] Author: Herve Copeland RN Service: ? Author Type: Registered Nurse Type: ED Notes Filed: 06/14/2022 5:34 PM Note Text: BGT 440 Normal [facility] ED NOTE HNO ID: [id number] Author: Aliyah Pollack RN Service: ? Author Type: Registered Nurse Type: ED Notes Filed: 06/14/2022 3:59 PM Note Text: Nausea, vomiting and bad pain that started yesterday. Normal [facility] ED PROV NOTEon 06-14-2022 ED PROV NOTE Normal [facility] FLUABV+SARS-CoV-2+RSV Pnl Re sp KENNA+probeon 06-14-2022 FLUAV RNA KENNA+probe Ql (Unsp spec) Negative Normal Negative for Influenza A by RT-PCR [facility] Comment on above: Order Comment: Speci men Type: SWAB OF INTERNAL NOSEOrdering Facility: [facility] Address: [address] [place] [address] Performed By: #### 9 5941-1 ####[facility]OTT[facility] LABORATORYCLIA [id number] [address] FLUBV RNA KENNA+probe Ql (Unsp spec) Negative Normal Negative for Influenza B by RT-PCR [facility] Comment on above: Order Comment: Speci men Type: SWAB OF INTERNAL NOSEOrdering Facility: [facility] Address: [address] [place] [address] Performed By: #### 9 5941-1 ####[place] LABORATORYCLIA [id number] [address] RSV A RNA KENNA+probe Ql (Unsp spec) Negative Normal Negative for Respiratory Syncytial Virus (RSV) by PCR [facility] Comment on above: Order Comment: Speci men Type: SWAB OF INTERNAL NOSEOrdering Facility: [facility] Address: [address] [place] [address] Performed By: #### 9 5941-1 ####[place] LABORATORYCLIA [id number] [address] SARS-CoV-2 (COVID-19) RNA KENNA+probe Ql (Resp) SARS-CoV-2 (Agent of COVID-19) Not Detected by RT-PCR or equivalent method. Normal Not Detected [facility] Comment on above: Order Comment: Speci men Type: SWAB OF INTERNAL NOSEOrdering Facility: [facility] Address: [address] [place] [address] Result Comment: This test has been authorized by FDA under an Emergency Use Authorization (EUA). Performed By: #### 9 5941-1 ####[facility] LABORATORYCLIA [id number] [address] [place] Gas and Carbon monoxide pane l (BldV)on 06-14-2022 BASE DEFICIT, VENOUS -16 mmol/L Low -2-0 [facility] Comment on above: Order Comment: Speci men Type: VENOUS BLOOD SPECIMENOrdering Facility: [facility] Address: [address] Performed By: #### 2 4344-4 ####[facility] RESPIRATORYCLIA [id number] [facility] [id number] [address] Carboxyhemoglobin (BldV) [Mass fraction] 1.5 % Normal 0.0-2.0 [facility] Comment on above: Order Comment: Speci men Type: VENOUS BLOOD SPECIMENOrdering Facility: [facility] Address: [address] [place], [place] [address] Result Comment: Carb oxyhemoglobin Reference Range for Smokers: 2.0-8.0% Performed By: #### 2 4344-4 ####[facility] RESPIRATORYCLIA [id number] [facility] [id number] [address] CO2 (BldV) [Partial pressure] 22 mm[Hg] Low 42-55 [facility] Comment on above: Order Comment: Speci men Type: VENOUS BLOOD SPECIMENOrdering Facility: [facility] Address: [address] [place] [address] Performed By: #### 2 4344-4 ####[facility] RESPIRATORYCLIA [id number] [facility] [id number] [address] CO2 adjusted to patient's actual temperature (BldV) [Partial pressure] Normal [facility] Comment on above: Order Comment: Speci men Type: VENOUS BLOOD SPECIMENOrdering Facility: [facility] Address: [address] Performed By: #### 2 4344-4 ####[facility] RESPIRATORYCLIA [id number] [facility] [id number] [address] [address] HCO3 (Bld) [Moles/Vol] 9 mmol/L Low 24-28 [facility] Comment on above: Order Comment: Speci men Type: VENOUS BLOOD SPECIMENOrdering Facility: [facility] Address: [address] Performed By: #### 2 4344-4 ####[facility] RESPIRATORYCLIA [id number] [facility] [id number] [address] Hemoglobin (Bld) [Mass/Vol] 14.8 g/dL Normal 11.5-15.5 [facility] Comment on above: Order Comment: Speci men Type: VENOUS BLOOD SPECIMENOrdering Facility: [facility] Address: [address] Performed By: #### 2 4344-4 ####[facility] RESPIRATORYCLIA [id number] [facility]OS[facility] [id number] [address] [address] Lactate [Moles/Vol] 1.2 mmol/L Normal 0.5-2.2 [facility] Comment on above: Order Comment: Speci men Type: VENOUS BLOOD SPECIMENOrdering Facility: [facility] Address: [address] [place] [address] Performed By: #### 2 4344-4 ####[facility] RESPIRATORYCLIA [id number] [facility]OSP[facility] [id number] [address] [address] O2 THERAPY RA=Room Air [facility] Comment on above: Order Comment: Speci men Type: VENOUS BLOOD SPECIMENOrdering Facility: [facility] Address: [address] [place], [place] [address] Performed By: #### 2 4344-4 ####[place] RESPIRATORYIA [id number] [facility]OSP[facility] RESPIR[facility] [id number] [address] Oxygen (BldV) [Partial pressure] 42 mm[Hg] Normal 35-45 [facility] Comment on above: Order Comment: Speci men Type: VENOUS BLOOD SPECIMENOrdering Facility: [facility] Address: [address] Performed By: #### 2 4344-4 ####[place] [facility]COP[facility] [id number] [facility] [id number] [address] [address] Oxygen adjusted to patient's actual temperature (BldV) [Partial pressure] Normal [facility] Comment on above: Order Comment: Speci men Type: VENOUS BLOOD SPECIMENOrdering Facility: [facility] Address: [address] Performed By: #### 2 4344-4 ####[facility] RESPIRATORYCLIA [id number] [facility]OSP[facility] RESP[facility] [id number] [address] Oxyhemoglobin (BldV) [Mass fraction] 73 % Normal 60-85 [facility] Comment on above: Order Comment: Speci men Type: VENOUS BLOOD SPECIMENOrdering Facility: [facility] Address: [address] [place] [address] Performed By: #### 2 4344-4 ####[facility] RESPIRATORYCLIA [id number] [facility]OS[facility] RESP[facility] [id number] [address] pH (BldV) 7.26 [pH] Low 7.32-7.42 [facility] Comment on above: Order Comment: Speci men Type: VENOUS BLOOD SPECIMENOrdering Facility: [facility] Address: [address] [place] [address] Performed By: #### 2 4344-4 ####[facility] RESPIRATORYCLIA [id number] [facility] [id number] [address] pH adjusted to patient's actual temperature (BldV) Normal [facility] Comment on above: Order Comment: Speci men Type: VENOUS BLOOD SPECIMENOrdering Facility: [facility] Address: [address] Performed By: #### 2 4344-4 ####[facility] RESPIRATORYCLIA [id number] [facility]OS[facility] RES[facility] [id number] [address] [address] Potassium [Moles/Vol] 4.7 mmol/L Normal 3.5-5.0 [facility] Comment on above: Order Comment: Speci men Type: VENOUS BLOOD SPECIMENOrdering Facility: [facility] Address: [address] Performed By: #### 2 4344-4 ####[facility] RESPIRATORYCLIA [id number] [facility] [id number] [facility] [address] [place] [address] HISTORY PHYSICALon 2 HISTORY PHYSICAL Normal [facility] KETONES/ACETONE/BHBon 2021 Beta hydroxybutyrate [Moles/Vol] >4.50 High <0.28 [facility] Comment on above: Order Comment: Speci men Type: BLOOD SPECIMENOrdering Facility: [facility] Address: [address] [place] [address] Performed By: #### B HB, 2777-1, 3040-3, 46874-6, 48868-5, HCGED ####[place] LABORATORYCLIA [id number] [place] [address] [place] Lipase SerPl-cCncon 06-14-20 Lipase [Catalytic activity/Vol] 7 U/L Low 16-61 [facility] Comment on above: Order Comment: Speci men Type: BLOOD SPECIMENOrdering Facility: [facility] Address: [address] [place] [address] Performed By: #### B HB, 2777-1, 3040-3, 61958-0, 59914-2, HCGED ####[place] LABORATORYCLIA [id number] [place] [address] [place] Magnesium SerPl-mCncon 06-14 Magnesium [Mass/Vol] 1.7 mg/dL Normal 1.7-2.3 [facility] Comment on above: Order Comment: Speci men Type: BLOOD SPECIMENOrdering Facility: [facility] Address: [address] [place] [address] Performed By: #### B HB, 2777-1, 3040-3, 52040-6, 78815-8, HCGED ####[place] LABORATORYCLIA [id number] [place] [address] [place] Phosphate SerPl-mCncon 06-14 Phosphate [Mass/Vol] 2.7 mg/dL Normal 2.7-4.8 [facility] Comment on above: Order Comment: Speci men Type: BLOOD SPECIMENOrdering Facility: [facility] Address: [address] [place] [address] Performed By: #### B HB, 2777-1, 3040-3, 78527-6, 32031-3, HCGED ####[facility] LABORATORYCLIA [id number] [place] [address] [place] Comprehensive metabolic 2000 panelon 06-03-2022 Albumin [Mass/Vol] 3.3 g/dL Low 3.9-4.9 [facility] Comment on above: Order Comment: Speci men Type: BLOOD SPECIMENOrdering Facility: [facility] Address: [address] [place] [address] Performed By: #### 2 4323-8 ####[facility] LABORATORYCLIA [id number] [address] [place] ALP [Catalytic activity/Vol] 171 U/L High 34-123 [facility] Comment on above: Order Comment: Speci men Type: BLOOD SPECIMENOrdering Facility: [facility] Address: [address] [place] [address] Performed By: #### 2 4323-8 ####[facility] LABORATORYCLIA [id number] [address] [place] ALT [Catalytic activity/Vol] 11 U/L Normal 7-38 [facility] Comment on above: Order Comment: Speci men Type: BLOOD SPECIMENOrdering Facility: [facility] Address: [address] [place] [address] Performed By: #### 2 4323-8 ####[facility] LABORATORYCLIA [id number] [address] [place] [facility] Anion gap [Moles/Vol] 12 mmol/L Normal 9-18 [facility] Comment on above: Order Comment: Speci men Type: BLOOD SPECIMENOrdering Facility: [facility] Address: [address] [place] [address] Performed By: #### 2 4323-8 ####[facility] LABORATORYCLIA [id number] [address] [place] AST [Catalytic activity/Vol] 16 U/L Normal 13-35 [facility] Comment on above: Order Comment: Speci men Type: BLOOD SPECIMENOrdering Facility: [facility] Address: [address] [place] [address] Performed By: #### 2 4323-8 ####[facility] LABORATORYCLIA [id number] [place] [address] [place] Bilirubin [Mass/Vol] 0.3 mg/dL Normal 0.2-1.3 [facility] Comment on above: Order Comment: Speci men Type: BLOOD SPECIMENOrdering Facility: [facility] Address: [address] [place] [address] Performed By: #### 2 4323-8 ####[facility] LABORATORYCLIA [id number] [place] [address] [place] Calcium [Mass/Vol] 9.2 mg/dL Normal 8.5-10.2 [facility] Comment on above: Order Comment: Speci men Type: BLOOD SPECIMENOrdering Facility: [facility] Address: [address] [place] [address] Performed By: #### 2 4323-8 ####[facility] LABORATORYCLIA [id number] [place] [address] [place] Chloride [Moles/Vol] 103 mmol/L Normal 97-105 [facility] Comment on above: Order Comment: Speci men Type: BLOOD SPECIMENOrdering Facility: [facility] Address: [address] [place] [address] Performed By: #### 2 4323-8 ####COTTRELL LABORATORYCLIA [id number] [place] [address] [place] CO2 [Moles/Vol] 23 mmol/L Normal 22-30 [facility] Comment on above: Order Comment: Speci men Type: BLOOD SPECIMENOrdering Facility: [facility] Address: [address] [place] [address] Performed By: #### 2 4323-8 ####COTTRELL LABORATORYCLIA [id number] [place] [address] [place] Creatinine [Mass/Vol] 0.38 mg/dL Low 0.58-0.96 [facility] Comment on above: Order Comment: Reginald vieira Type: BLOOD SPECIMENOrdering Facility: [facility] Address: [address] [facility] [address] [place] [address] Performed By: #### 2 4323-8 ####[place] LABORATORYCLIA [id number] [place] [address] [place] ESTIMATED GLOMERULAR FILTRATION RATE 145 mL/min/1.73m??? Normal >=60 [facility] Comment on above: Order Comment: Reginald vieira Type: BLOOD SPECIMENOrdering Facility: [facility] Address: [address] [place] [address] Result Comment: Steffi mated Glomerular Filtration Rate (eGFR) is calculated using the 2020 CKD-EPI creatinine equation. This equation utilizes serum creatinine, sex, and age as parameters. The creatinine assay has traceable calibration to isotope dilution-mass spectrometry. Refer to KDIGO guidelines for clinical interpretation. In patients with unstable renal function, e.g. those with acute kidney injury, the eGFR may not accurately reflect actual GFR. Performed By: #### 2 4323-8 ####[facility] [place] [facility]ORATORYCLIA [id number] [place] [address] [place] Glucose [Mass/Vol] 289 mg/dL High 74-99 [facility] Comment on above: Order Comment: Reginald vieira Type: BLOOD SPECIMENOrdering Facility: [facility] Address: [address] [place] [address] Result Comment: The [place] Diabetes Association (ADA) provides guidance for cutoff values for fasting glucose and random glucose. The ADA defines fasting as no caloric intake for at least 8 hours. Fasting plasma glucose results between 100 to 125 mg/dL indicate increased risk for diabetes (prediabetes).Fasting plasma glucose results greater than or equal to 126 mg/dL meet the criteria for diagnosis of diabetes. In the absence of unequivocal hyperglycemia, results should be confirmed by repeat testing. In a patient with classic symptoms of hyperglycemia or hyperglycemic crisis, random plasma glucose results greater than or equal to 200 mg/dL meet the criteria for diagnosis of diabetes.Reference: Standards of Medical Care in Diabetes 2016, [place] [employer]. Diabetes Care. 2016.39(Suppl 1). Performed By: #### 2 4323-8 ####[facility]ORATORYCLIA [id number] [place] [address] [place] Potassium [Moles/Vol] 3.8 mmol/L Normal 3.7-5.1 [facility] Comment on above: Order Comment: Speci men Type: BLOOD SPECIMENOrdering Facility: [facility] Address: [address] [place] [address] Performed By: #### 2 4323-8 ####[facility] LABORATORYCLIA [id number] [place] [address] [place] Protein [Mass/Vol] 6.6 g/dL Normal 6.3-8.0 [facility] Comment on above: Order Comment: Speci men Type: BLOOD SPECIMENOrdering Facility: [facility] Address: [address] [place] [address] Performed By: #### 2 4323-8 ####[facility] LABORATORYCLIA [id number] [place] [address] [place] Sodium [Moles/Vol] 138 mmol/L Normal 136-144 [facility] Comment on above: Order Comment: Speci men Type: BLOOD SPECIMENOrdering Facility: [facility] Address: [address] [place] [address] Performed By: #### 2 4323-8 ####[facility] LABORATORYCLIA [id number] [place] [address] [place] Urea nitrogen [Mass/Vol] 4 mg/dL Low 7-21 [facility] Comment on above: Order Comment: Speci men Type: BLOOD SPECIMENOrdering Facility: [facility] Address: [address] [place] [address] Performed By: #### 2 4323-8 ####[facility] LABORATORYCLIA [id number] [place] [address] [place] Lactate (Bld) [Moles/Vol]on 06-03-2022 Lactate [Moles/Vol] 2.1 mmol/L Normal 0.5-2.2 [facility] Comment on above: Order Comment: Speci men Type: BLOOD SPECIMENOrdering Facility: [facility] Address: [address] [address] Performed By: #### 3 2693-4 ####[facility] LABORATORYCLIA [id number] [place] [address] [place] NURSING PROGon 06-03-2022 NURSING PROG Normal [facility] Basic metabolic 2000 panelon 06-02-2022 Anion gap [Moles/Vol] 13 mmol/L Normal 9-18 [facility] Comment on above: Order Comment: Speci men Type: BLOOD SPECIMENOrdering Facility: [facility] Address: [address] [place] [address] Performed By: #### 2 4321-2 ####[facility] LABORATORYCLIA [id number] [place] [address] [place] Calcium [Mass/Vol] 9.3 mg/dL Normal 8.5-10.2 [facility] Comment on above: Order Comment: Speci men Type: BLOOD SPECIMENOrdering Facility: [facility] Address: [address] [place] [address] Performed By: #### 2 4321-2 ####[facility] LABORATORYCLIA [id number] [place] [address] [place] Chloride [Moles/Vol] 104 mmol/L Normal 97-105 [facility] Comment on above: Order Comment: Speci men Type: BLOOD SPECIMENOrdering Facility: [facility] Address: [address] [place] [address] Performed By: #### 2 4321-2 ####[facility] LABORATORYCLIA [id number] [place] [address] [place] CO2 [Moles/Vol] 21 mmol/L Low 22-30 [facility] Comment on above: Order Comment: Speci men Type: BLOOD SPECIMENOrdering Facility: [facility] Address: [address] [place] [address] Performed By: #### 2 4321-2 ####[facility] LABORATORYCLIA [id number] [place] [address] [place] Creatinine [Mass/Vol] 0.36 mg/dL Low 0.58-0.96 [facility] Comment on above: Order Comment: Reginald vieira Type: BLOOD SPECIMENOrdering Facility: [facility] Address: [address] [place] [address] Performed By: #### 2 4321-2 ####[facility] [facility]ORATORYCLIA [id number] [place] [address] [place] ESTIMATED GLOMERULAR FILTRATION RATE 147 mL/min/1.73m??? Normal >=60 [facility] Comment on above: Order Comment: Keyurvandana vieira Type: BLOOD SPECIMENOrdering Facility: [facility] Address: [address] [place] [address] Result Comment: Steffi mated Glomerular Filtration Rate (eGFR) is calculated using the 2020 CKD-EPI creatinine equation. This equation utilizes serum creatinine, sex, and age as parameters. The creatinine assay has traceable calibration to isotope dilution-mass spectrometry. Refer to KDIGO guidelines for clinical interpretation. In patients with unstable renal function, e.g. those with acute kidney injury, the eGFR may not accurately reflect actual GFR. Performed By: #### 2 4321-2 ####[facility] LABORATORYCLIA [id number] [place] [address] [place] Glucose [Mass/Vol] 122 mg/dL High 74-99 [facility] Comment on above: Order Comment: Reginald vieira Type: BLOOD SPECIMENOrdering Facility: [facility] Address: [address] [place] [address] Result Comment: The [place] Diabetes Association (ADA) provides guidance for cutoff values for fasting glucose and random glucose. The ADA defines fasting as no caloric intake for at least 8 hours. Fasting plasma glucose results between 100 to 125 mg/dL indicate increased risk for diabetes (prediabetes).Fasting plasma glucose results greater than or equal to 126 mg/dL meet the criteria for diagnosis of diabetes. In the absence of unequivocal hyperglycemia, results should be confirmed by repeat testing. In a patient with classic symptoms of hyperglycemia or hyperglycemic crisis, random plasma glucose results greater than or equal to 200 mg/dL meet the criteria for diagnosis of diabetes.Reference: Standards of Medical Care in Diabetes 2016, [place] [employer]. Diabetes Care. 2016.39(Suppl 1). Performed By: #### 2 4321-2 ####[facility]ORATORYCLIA [id number] [place] [address] [place] Potassium [Moles/Vol] 3.8 mmol/L Normal 3.7-5.1 [facility] Comment on above: Order Comment: Speci men Type: BLOOD SPECIMENOrdering Facility: [facility] Address: [address] [place] [address] Performed By: #### 2 4321-2 ####[facility] LABORATORYCLIA [id number] [place] [address] [place] Sodium [Moles/Vol] 138 mmol/L Normal 136-144 [facility] Comment on above: Order Comment: Speci men Type: BLOOD SPECIMENOrdering Facility: [facility] Address: [address] [place] [address] Performed By: #### 2 4321-2 ####[facility] LABORATORYCLIA [id number] [place] [address] [place] Urea nitrogen [Mass/Vol] 2 mg/dL Low 7-21 [facility] Comment on above: Order Comment: Speci men Type: BLOOD SPECIMENOrdering Facility: [facility] Address: [address] [place] [address] Performed By: #### 2 4321-2 ####[facility]ORATORYCLIA [id number] [address] [place] Anion gap [Moles/Vol] 17 mmol/L Normal 9-18 [facility] Comment on above: Order Comment: Speci men Type: BLOOD SPECIMENOrdering Facility: [facility] Address: [address] [address] Performed By: #### 2 4321-2 ####[facility]ORATORYCLIA [id number] [place] [address] [place] Calcium [Mass/Vol] 8.7 mg/dL Normal 8.5-10.2 [facility] Comment on above: Order Comment: Speci men Type: BLOOD SPECIMENOrdering Facility: [facility] Address: [address] [address] Performed By: #### 2 4321-2 ####[facility]ORATORYCLIA [id number] [address] [place] Chloride [Moles/Vol] 108 mmol/L High 97-105 [facility] Comment on above: Order Comment: Speci men Type: BLOOD SPECIMENOrdering Facility: [facility] Address: [address] [place] [address] Performed By: #### 2 4321-2 ####[facility] LABORATORYCLIA [id number] [place] [address] [place] CO2 [Moles/Vol] 18 mmol/L Low 22-30 [facility] Comment on above: Order Comment: Speci men Type: BLOOD SPECIMENOrdering Facility: [facility] Address: [address] [place] [address] Performed By: #### 2 4321-2 ####[facility] LABORATORYCLIA [id number] [address] [place] Creatinine [Mass/Vol] 0.43 mg/dL Low 0.58-0.96 [facility] Comment on above: Order Comment: Speci men Type: BLOOD SPECIMENOrdering Facility: [facility] Address: [address] [place] [address] Performed By: #### 2 4321-2 ####[facility] LABORATORYCLIA [id number] [address] ESTIMATED GLOMERULAR FILTRATION RATE 140 mL/min/1.73m??? Normal >=60 [facility] Comment on above: Order Comment: Speci men Type: BLOOD SPECIMENOrdering Facility: [facility] Address: [address] [place] [address] Result Comment: Steffi mated Glomerular Filtration Rate (eGFR) is calculated using the 2020 CKD-EPI creatinine equation. This equation utilizes serum creatinine, sex, and age as parameters. The creatinine assay has traceable calibration to isotope dilution-mass spectrometry. Refer to KDIGO guidelines for clinical interpretation. In patients with unstable renal function, e.g. those with acute kidney injury, the eGFR may not accurately reflect actual GFR. Performed By: #### 2 4321-2 ####[facility] LABORATORYCLIA [id number] [place] [address] [place] Glucose [Mass/Vol] 172 mg/dL High 74-99 [facility] Comment on above: Order Comment: Reginald vieira Type: BLOOD SPECIMENOrdering Facility: [facility] Address: [address] [place] [address] Result Comment: The [place] Diabetes Association (ADA) provides guidance for cutoff values for fasting glucose and random glucose. The ADA defines fasting as no caloric intake for at least 8 hours. Fasting plasma glucose results between 100 to 125 mg/dL indicate increased risk for diabetes (prediabetes).Fasting plasma glucose results greater than or equal to 126 mg/dL meet the criteria for diagnosis of diabetes. In the absence of unequivocal hyperglycemia, results should be confirmed by repeat testing. In a patient with classic symptoms of hyperglycemia or hyperglycemic crisis, random plasma glucose results greater than or equal to 200 mg/dL meet the criteria for diagnosis of diabetes.Reference: Standards of Medical Care in Diabetes 2016, [place] [employer]. Diabetes Care. 2016.39(Suppl 1). Performed By: #### 2 4321-2 ####[facility]ORATORYCLIA [id number] [place] [address] [place] Potassium [Moles/Vol] 3.3 mmol/L Low 3.7-5.1 [facility] Comment on above: Order Comment: Reginald vieira Type: BLOOD SPECIMENOrdering Facility: [facility] Address: [address] [place] [address] Performed By: #### 2 4321-2 ####[facility] LABORATORYCLIA [id number] [place] [address] [place] Sodium [Moles/Vol] 143 mmol/L Normal 136-144 [facility] Comment on above: Order Comment: Reginald vieira Type: BLOOD SPECIMENOrdering Facility: [facility] Address: [address] [place] [address] Performed By: #### 2 4321-2 ####[facility] LABORATORYCLIA [id number] [place] [address] [place] Urea nitrogen [Mass/Vol] 3 mg/dL Low 7-21 [facility] Comment on above: Order Comment: Keyuri men Type: BLOOD SPECIMENOrdering Facility: [facility] Address: [address] [place] [address] Performed By: #### 2 4321-2 ####[facility] LABORATORYCLIA [id number] [address] CBC panel Auto (Bld)on 06-02 Erythrocyte distribution width (RBC) [Ratio] 13.2 % Normal 11.5-15.0 [facility] Comment on above: Order Comment: Speci men Type: BLOOD SPECIMENOrdering Facility: [facility] Address: [address] [place] [address] Performed By: #### 5 8410-2 ####[facility]ORATORYCLIA [id number] [address] Hematocrit (Bld) [Volume fraction] 35.2 % Low 36.0-46.0 [facility] Comment on above: Order Comment: Speci men Type: BLOOD SPECIMENOrdering Facility: [facility] Address: [address] [place] [address] Performed By: #### 5 8410-2 ####[facility]ORATORYCLIA [id number] [address] Hemoglobin (Bld) [Mass/Vol] 11.7 g/dL Normal 11.5-15.5 [facility] Comment on above: Order Comment: Speci men Type: BLOOD SPECIMENOrdering Facility: [facility] Address: [address] [place] [address] Performed By: #### 5 8410-2 ####[facility] LABORATORYCLIA [id number] [address] MCH (RBC) [Entitic mass] 30.3 pg Normal 26.0-34.0 [facility] Comment on above: Order Comment: Speci men Type: BLOOD SPECIMENOrdering Facility: [facility] Address: [address] [place] [address] Performed By: #### 5 8410-2 ####[facility] LABORATORYCLIA [id number] [place] [address] [place] MCHC (RBC) [Mass/Vol] 33.2 g/dL Normal 30.5-36.0 [facility] Comment on above: Order Comment: Speci men Type: BLOOD SPECIMENOrdering Facility: [facility] Address: [address] [place] [address] Performed By: #### 5 8410-2 ####[facility] LABORATORYCLIA [id number] [address] MCV (RBC) [Entitic vol] 91.2 fL Normal 80.0-100.0 [facility] Comment on above: Order Comment: Speci men Type: BLOOD SPECIMENOrdering Facility: [facility] Address: [address] [place] [address] Performed By: #### 5 8410-2 ####[facility] LABORATORYCLIA [id number] [address] Nucleated RBC (Bld) [#/Vol] 10*3/uL Normal <0.01 [facility] Comment on above: Order Comment: Speci men Type: BLOOD SPECIMENOrdering Facility: [facility] Address: [address] [place] [address] Performed By: #### 5 8410-2 ####[facility] LABORATORYCLIA [id number] [address] Platelet mean volume (Bld) [Entitic vol] 8.4 fL Low 9.0-12.7 [facility] Comment on above: Order Comment: Speci men Type: BLOOD SPECIMENOrdering Facility: [facility] Address: [address] [place], [place] [phone] Performed By: #### 5 8410-2 ####[facility] LABORATORYCLIA [id number] [address] Platelets (Bld) [#/Vol] 301 10*3/uL Normal 150-400 [facility] Comment on above: Order Comment: Speci men Type: BLOOD SPECIMENOrdering Facility: [facility] Address: [address] [place], [place] [phone] Performed By: #### 5 8410-2 ####[facility] LABORATORYCLIA [id number] [address] OF [facility] RBC (Bld) [#/Vol] 3.86 10*6/uL Low 3.90-5.20 [facility] Comment on above: Order Comment: Speci men Type: BLOOD SPECIMENOrdering Facility: [facility] Address: [address] [place] [address] Performed By: #### 5 8410-2 ####[place] [facility]ORATORYCLIA [id number] [address] WBC (Bld) [#/Vol] 5.65 10*3/uL Normal 3.70-11.00 [facility] Comment on above: Order Comment: Speci men Type: BLOOD SPECIMENOrdering Facility: [facility] Address: [address] [place] [address] Performed By: #### 5 8410-2 ####[place] [facility]ORATORYCLIA [id number] [address] CONSULTon 06-02-2022 CONSULT Normal [facility] Comprehensive metabolic 2000 panelon 06-02-2022 Albumin [Mass/Vol] 3.2 g/dL Low 3.9-4.9 [facility] Comment on above: Order Comment: Speci men Type: BLOOD SPECIMENOrdering Facility: [facility] Address: [address] [place] [address] Performed By: #### 2 777-1, , ####[place] [facility]ORATORYCLIA [id number] [address] ALP [Catalytic activity/Vol] 170 U/L High 34-123 [facility] Comment on above: Order Comment: Speci men Type: BLOOD SPECIMENOrdering Facility: [facility] Address: [address] [place] [address] Performed By: #### 2 777-1, , ####[facility] [facility]ORATORYCLIA [id number] [address] ALT [Catalytic activity/Vol] 12 U/L Normal 7-38 [facility] Comment on above: Order Comment: Speci men Type: BLOOD SPECIMENOrdering Facility: [facility] Address: [address] [place], [place] [phone] Performed By: #### 2 777-1, , ####[facility] LABORATORYCLIA [id number] [place] [address] [place] Anion gap [Moles/Vol] 15 mmol/L Normal 9-18 [facility] Comment on above: Order Comment: Speci men Type: BLOOD SPECIMENOrdering Facility: [facility] Address: [address] [place] [address] Performed By: #### 2 777-1, , ####[facility] LABORATORYCLIA [id number] [place] [address] [place] AST [Catalytic activity/Vol] 14 U/L Normal 13-35 [facility] Comment on above: Order Comment: Speci men Type: BLOOD SPECIMENOrdering Facility: [facility] Address: [address] [place] [address] Performed By: #### 2 777-1, , ####[facility] LABORATORYCLIA [id number] [place] [address] [place] Bilirubin [Mass/Vol] 0.2 mg/dL Normal 0.2-1.3 [facility] Comment on above: Order Comment: Speci men Type: BLOOD SPECIMENOrdering Facility: [facility] Address: [address] [place] [address] Performed By: #### 2 777-1, , ####[facility] LABORATORYCLIA [id number] [address] [place] Calcium [Mass/Vol] 8.7 mg/dL Normal 8.5-10.2 [facility] Comment on above: Order Comment: Speci men Type: BLOOD SPECIMENOrdering Facility: [facility] Address: [address] [place] [address] Performed By: #### 2 777-1, 03276-6, ####[facility] LABORATORYCLIA [id number] [place] [address] [place] Chloride [Moles/Vol] 108 mmol/L High 97-105 [facility] Comment on above: Order Comment: Speci men Type: BLOOD SPECIMENOrdering Facility: [facility] Address: [address] [place] [address] Performed By: #### 2 777-1, 11860-5, ####[facility] LABORATORYCLIA [id number] [address] [place] CO2 [Moles/Vol] 20 mmol/L Low 22-30 [facility] Comment on above: Order Comment: Speci men Type: BLOOD SPECIMENOrdering Facility: [facility] Address: [address] [place] [address] Performed By: #### 2 777-1, , ####[facility] [facility]ORATORYCLIA [id number] [address] STATES OF [facility] Creatinine [Mass/Vol] 0.40 mg/dL Low 0.58-0.96 [facility] Comment on above: Order Comment: Speci men Type: BLOOD SPECIMENOrdering Facility: [facility] Address: [address] [place] [address] Performed By: #### 2 777-1, 09859-2, ####[facility] [facility]ORATORYCLIA [id number] [address] ESTIMATED GLOMERULAR FILTRATION RATE 143 mL/min/1.73m??? Normal >=60 [facility] Comment on above: Order Comment: Speci men Type: BLOOD SPECIMENOrdering Facility: [facility] Address: [address] [place] [address] Result Comment: Steffi mated Glomerular Filtration Rate (eGFR) is calculated using the 2020 CKD-EPI creatinine equation. This equation utilizes serum creatinine, sex, and age as parameters. The creatinine assay has traceable calibration to isotope dilution-mass spectrometry. Refer to KDIGO guidelines for clinical interpretation. In patients with unstable renal function, e.g. those with acute kidney injury, the eGFR may not accurately reflect actual GFR. Performed By: #### 2 777-1, 85391-1, ####[facility] [facility]ORATORYCLIA [id number] [place] [address] [place] Glucose [Mass/Vol] 133 mg/dL High 74-99 [facility] Comment on above: Order Comment: Reginald vieira Type: BLOOD SPECIMENOrdering Facility: [facility] Address: [address] [place], [place] [phone] Result Comment: The [place] [employer] (ADA) provides guidance for cutoff values for fasting glucose and random glucose. The ADA defines fasting as no caloric intake for at least 8 hours. Fasting plasma glucose results between 100 to 125 mg/dL indicate increased risk for diabetes (prediabetes).Fasting plasma glucose results greater than or equal to 126 mg/dL meet the criteria for diagnosis of diabetes. In the absence of unequivocal hyperglycemia, results should be confirmed by repeat testing. In a patient with classic symptoms of hyperglycemia or hyperglycemic crisis, random plasma glucose results greater than or equal to 200 mg/dL meet the criteria for diagnosis of diabetes.Reference: Standards of Medical Care in Diabetes 2016, [place] [employer]. Diabetes Care. 2016.39(Suppl 1). Performed By: #### 2 777-1, , ####[facility] [place] [facility]ORATORYCLIA [id number] [place] [address] [place] Potassium [Moles/Vol] 3.1 mmol/L Low 3.7-5.1 [facility] Comment on above: Order Comment: Reginald vieira Type: BLOOD SPECIMENOrdering Facility: [facility] Address: [address] [phone] Performed By: #### 2 777-1, 38237-1, ####[facility]ORATORYCLIA [id number] [place] [address] [place] Protein [Mass/Vol] 6.2 g/dL Low 6.3-8.0 [facility] Comment on above: Order Comment: Reginald vieira Type: BLOOD SPECIMENOrdering Facility: [facility] Address: [address] [place], [place] [phone] Performed By: #### 2 777-1, 56075-9, ####[facility] LABORATORYCLIA [id number] [place] [address] [place] Sodium [Moles/Vol] 143 mmol/L Normal 136-144 [facility] Comment on above: Order Comment: Speci men Type: BLOOD SPECIMENOrdering Facility: [facility] Address: [address] [place] [address] Performed By: #### 2 777-1, 85319-8, ####[facility] LABORATORYCLIA [id number] [address] [place] [facility] Urea nitrogen [Mass/Vol] 4 mg/dL Low 7-21 [facility] Comment on above: Order Comment: Speci men Type: BLOOD SPECIMENOrdering Facility: [facility] Address: [address] [place] [address] Performed By: #### 2 777-1, , ####[facility] LABORATORYCLIA [id number] [place] [address] [place] Lactate (Bld) [Moles/Vol]on 06-02-2022 Lactate [Moles/Vol] 4.3 mmol/L High 0.5-2.2 [facility] Comment on above: Order Comment: Speci men Type: BLOOD SPECIMENOrdering Facility: [facility] Address: [address] [place] [address] Performed By: #### 3 2693-4 ####[facility] LABORATORYCLIA [id number] [address] [place] Lactate [Moles/Vol] 6.5 mmol/L High 0.5-2.2 [facility] Comment on above: Order Comment: Speci men Type: BLOOD SPECIMENOrdering Facility: [facility] Address: [address] [place] [address] Performed By: #### 3 2693-4 ####[facility] LABORATORYCLIA [id number] [place] [address] [place] Magnesium SerPl-mCncon 06-02 Magnesium [Mass/Vol] 1.6 mg/dL Low 1.7-2.3 [facility] Comment on above: Order Comment: Speci men Type: BLOOD SPECIMENOrdering Facility: [facility] Address: [address] [place] [address] Performed By: #### 2 777-1, 92266-5, 08272-1 ####[facility] [facility]ORATORYCLIA [id number] [place] [address] [facility] [place] NURSING PROGon 06-02-2022 NURSING PROG Normal [facility] NUTRITIONon 06-02-2022 NUTRITION Normal [facility] Phosphate SerPl-mCncon 06-02 Phosphate [Mass/Vol] 2.1 mg/dL Low 2.7-4.8 [facility] Comment on above: Order Comment: Speci men Type: BLOOD SPECIMENOrdering Facility: [facility] Address: [address] [place] [address] Performed By: #### 2 777-1, 41934-8, ####[facility] [place] [facility]ORATORYCLIA [id number] [address] Basic metabolic 2000 panelon 06-01-2022 Anion gap [Moles/Vol] 19 mmol/L High -18 [facility] Comment on above: Order Comment: Speci men Type: BLOOD SPECIMENOrdering Facility: [facility] Address: [address] [place] [address] Performed By: #### 1 988-5, 44372-5 ####[facility]ORATORYCLIA [id number] [address] [place] [facility] Calcium [Mass/Vol] 8.5 mg/dL Normal 8.5-10.2 [facility] Comment on above: Order Comment: Speci men Type: BLOOD SPECIMENOrdering Facility: [facility] Address: [address] [place] [address] Performed By: #### 1 988-5, 73741-6 ####[facility] [place] [facility]ORATORYCLIA [id number] [address] [place] Chloride [Moles/Vol] 103 mmol/L Normal 97-105 [facility] Comment on above: Order Comment: Keyuri men Type: BLOOD SPECIMENOrdering Facility: [facility] Address: [address] [place] [address] Performed By: #### 1 988-5, 91262-3 ####[facility] LABORATORYCLIA [id number] [address] [place] CO2 [Moles/Vol] 17 mmol/L Low 22-30 [facility] Comment on above: Order Comment: Keyuri men Type: BLOOD SPECIMENOrdering Facility: [facility] Address: [address] [place] [address] Performed By: #### 1 988-5, ####[facility] [facility]ORATORYCLIA [id number] [address] Creatinine [Mass/Vol] 0.42 mg/dL Low 0.58-0.96 [facility] Comment on above: Order Comment: Speci men Type: BLOOD SPECIMENOrdering Facility: [facility] Address: [address] [place] [address] Performed By: #### 1 988-5, ####[facility] LABORATORYCLIA [id number] [address] ESTIMATED GLOMERULAR FILTRATION RATE 141 mL/min/1.73m??? Normal >=60 [facility] Comment on above: Order Comment: Reginald men Type: BLOOD SPECIMENOrdering Facility: [facility] Address: [address] [place] [address] Result Comment: Steffi mated Glomerular Filtration Rate (eGFR) is calculated using the 2020 CKD-EPI creatinine equation. This equation utilizes serum creatinine, sex, and age as parameters. The creatinine assay has traceable calibration to isotope dilution-mass spectrometry. Refer to KDIGO guidelines for clinical interpretation. In patients with unstable renal function, e.g. those with acute kidney injury, the eGFR may not accurately reflect actual GFR. Performed By: #### 1 988-5, 35104-7 ####[facility] LABORATORYCLIA [id number] [place] [address] [place] Glucose [Mass/Vol] 217 mg/dL High 74-99 [facility] Comment on above: Order Comment: Reginald vieira Type: BLOOD SPECIMENOrdering Facility: [facility] Address: [address] [place] [address] Result Comment: The [place] [employer] (ADA) provides guidance for cutoff values for fasting glucose and random glucose. The ADA defines fasting as no caloric intake for at least 8 hours. Fasting plasma glucose results between 100 to 125 mg/dL indicate increased risk for diabetes (prediabetes).Fasting plasma glucose results greater than or equal to 126 mg/dL meet the criteria for diagnosis of diabetes. In the absence of unequivocal hyperglycemia, results should be confirmed by repeat testing. In a patient with classic symptoms of hyperglycemia or hyperglycemic crisis, random plasma glucose results greater than or equal to 200 mg/dL meet the criteria for diagnosis of diabetes.Reference: Standards of Medical Care in Diabetes 2016, [place] [employer]. Diabetes Care. 2016.39(Suppl 1). Performed By: #### 1 988-5, 03703-4 ####[facility] LABORATORYCLIA [id number] [place] [address] [place] Potassium [Moles/Vol] 3.5 mmol/L Low 3.7-5.1 [facility] Comment on above: Order Comment: Reginald vieira Type: BLOOD SPECIMENOrdering Facility: [facility] Address: [address] [place] [address] Performed By: #### 1 988-5, 37697-9 ####[facility] LABORATORYCLIA [id number] [place] [address] [place] Sodium [Moles/Vol] 139 mmol/L Normal 136-144 [facility] Comment on above: Order Comment: Reginald vieira Type: BLOOD SPECIMENOrdering Facility: [facility] Address: [address] [place] [address] Performed By: #### 1 988-5, 57672-7 ####[facility] LABORATORYCLIA [id number] [place] [address] [place] Urea nitrogen [Mass/Vol] 4 mg/dL Low 7-21 [facility] Comment on above: Order Comment: Speci men Type: BLOOD SPECIMENOrdering Facility: [facility] Address: [address] [address] Performed By: #### 1 988-5, 58410-4 ####[facility] LABORATORYCLIA [id number] [place] [address] [place] Anion gap [Moles/Vol] 18 mmol/L Normal 9-18 [facility] Comment on above: Order Comment: Speci men Type: BLOOD SPECIMENOrdering Facility: [facility] Address: [address] [place] [address] Performed By: #### B HB, 58782-6 ####[facility] LABORATORYCLIA [id number] [place] [address] [place] Calcium [Mass/Vol] 8.6 mg/dL Normal 8.5-10.2 [facility] Comment on above: Order Comment: Speci men Type: BLOOD SPECIMENOrdering Facility: [facility] Address: [address] [place] [address] Performed By: #### [place], 51535-0 ####[facility] LABORATORYCLIA [id number] [place] [address] [place] Chloride [Moles/Vol] 103 mmol/L Normal 97-105 [facility] Comment on above: Order Comment: Speci men Type: BLOOD SPECIMENOrdering Facility: [facility] Address: [address] [address] Performed By: #### B HB, 23553-5 ####[facility] LABORATORYCLIA [id number] [place] [address] [place] CO2 [Moles/Vol] 18 mmol/L Low 22-30 [facility] Comment on above: Order Comment: Speci men Type: BLOOD SPECIMENOrdering Facility: [facility] Address: [address] [place] [address] Performed By: #### B [place], 04244-2 ####[facility] LABORATORYCLIA [id number] [place] [address] [place] Creatinine [Mass/Vol] 0.45 mg/dL Low 0.58-0.96 [facility] Comment on above: Order Comment: Keyurvandana vieira Type: BLOOD SPECIMENOrdering Facility: [facility] Address: [address] [address] Performed By: #### B [place], 32747-2 ####[facility] [place] [facility]ORATORYCLIA [id number] [place] [address] [place] ESTIMATED GLOMERULAR FILTRATION RATE 139 mL/min/1.73m??? Normal >=60 [facility] Comment on above: Order Comment: Reginald dariel Type: BLOOD SPECIMENOrdering Facility: [facility] Address: [address] [place] [address] Result Comment: Steffi mated Glomerular Filtration Rate (eGFR) is calculated using the 2020 CKD-EPI creatinine equation. This equation utilizes serum creatinine, sex, and age as parameters. The creatinine assay has traceable calibration to isotope dilution-mass spectrometry. Refer to KDIGO guidelines for clinical interpretation. In patients with unstable renal function, e.g. those with acute kidney injury, the eGFR may not accurately reflect actual GFR. Performed By: #### B HB, 61948-9 ####[facility] LABORATORYCLIA [id number] [place] [address] [place] Glucose [Mass/Vol] 131 mg/dL High 74-99 [facility] Comment on above: Order Comment: Keyurvandana vieira Type: BLOOD SPECIMENOrdering Facility: [facility] Address: [address] [address] Result Comment: The [place] Diabetes [employer] (ADA) provides guidance for cutoff values for fasting glucose and random glucose. The ADA defines fasting as no caloric intake for at least 8 hours. Fasting plasma glucose results between 100 to 125 mg/dL indicate increased risk for diabetes (prediabetes).Fasting plasma glucose results greater than or equal to 126 mg/dL meet the criteria for diagnosis of diabetes. In the absence of unequivocal hyperglycemia, results should be confirmed by repeat testing. In a patient with classic symptoms of hyperglycemia or hyperglycemic crisis, random plasma glucose results greater than or equal to 200 mg/dL meet the criteria for diagnosis of diabetes.Reference: Standards of Medical Care in Diabetes 2016, [place] [employer]. Diabetes Care. 2016.39(Suppl 1). Performed By: #### B HB, 01082-8 ####[facility] LABORATORYCLIA [id number] [place] [address] [place] Potassium [Moles/Vol] 3.4 mmol/L Low 3.7-5.1 [facility] Comment on above: Order Comment: Speci men Type: BLOOD SPECIMENOrdering Facility: [facility] Address: [address] [place] [address] Performed By: #### B [place], 22316-7 ####[facility] LABORATORYCLIA [id number] [place] [address] [place] Sodium [Moles/Vol] 139 mmol/L Normal 136-144 [facility] Comment on above: Order Comment: Speci men Type: BLOOD SPECIMENOrdering Facility: [facility] Address: [address] [place] [address] Performed By: #### B [place], 28669-2 ####[facility] LABORATORYCLIA [id number] [place] [address] [place] Urea nitrogen [Mass/Vol] 5 mg/dL Low 7-21 [facility] Comment on above: Order Comment: Speci men Type: BLOOD SPECIMENOrdering Facility: [facility] Address: [address] [place] [address] Performed By: #### B HB, 05851-3 ####[facility] LABORATORYCLIA [id number] [place] [address] [place] Anion gap [Moles/Vol] 30 mmol/L High 9-18 [facility] Comment on above: Order Comment: Speci men Type: BLOOD SPECIMENOrdering Facility: [facility] Address: [address] [address] Performed By: #### [place], 38053-4, 07665-2, 3040-3 ####[facility] LABORATORYCLIA [id number] [place] [address] [place] Calcium [Mass/Vol] 9.6 mg/dL Normal 8.5-10.2 [facility] Comment on above: Order Comment: Speci men Type: BLOOD SPECIMENOrdering Facility: [facility] Address: [address] [address] Performed By: #### [place], 63330-9, 88804-1, 3040-3 ####[facility] LABORATORYCLIA [id number] [place] [address] [place] Chloride [Moles/Vol] 92 mmol/L Low 97-105 [facility] Comment on above: Order Comment: Speci men Type: BLOOD SPECIMENOrdering Facility: [facility] Address: [address] [place] [address] Performed By: #### B HB, 69133-7, 06529-3, 3040-3 ####[facility] LABORATORYCLIA [id number] [place] [address] [place] CO2 [Moles/Vol] 11 mmol/L Low 22-30 [facility] Comment on above: Order Comment: Speci men Type: BLOOD SPECIMENOrdering Facility: [facility] Address: [address] [place] [address] Performed By: #### B HB, 14897-3, 94651-0, 3040-3 ####[facility] LABORATORYCLIA [id number] [place] [address] [place] Creatinine [Mass/Vol] 0.51 mg/dL Low 0.58-0.96 [facility] Comment on above: Order Comment: Speci men Type: BLOOD SPECIMENOrdering Facility: [facility] Address: [address] [place] [address] Performed By: #### B HB, 47158-2, 30327-1, 3040-3 ####[facility] LABORATORYCLIA [id number] [address] [place] ESTIMATED GLOMERULAR FILTRATION RATE 135 mL/min/1.73m??? Normal >=60 [facility] Comment on above: Order Comment: Speci men Type: BLOOD SPECIMENOrdering Facility: [facility] Address: [address] [place] [address] Result Comment: Steffi mated Glomerular Filtration Rate (eGFR) is calculated using the 2020 CKD-EPI creatinine equation. This equation utilizes serum creatinine, sex, and age as parameters. The creatinine assay has traceable calibration to isotope dilution-mass spectrometry. Refer to KDIGO guidelines for clinical interpretation. In patients with unstable renal function, e.g. those with acute kidney injury, the eGFR may not accurately reflect actual GFR. Performed By: #### B HB, 06057-2, 92435-0, 3040-3 ####[facility] [facility]ORATORYCLIA [id number] [place] [address] [place] Glucose [Mass/Vol] 324 mg/dL High 74-99 [facility] Comment on above: Order Comment: Reginald vieira Type: BLOOD SPECIMENOrdering Facility: [facility] Address: [address] [place] [address] Result Comment: The [place] Diabetes [employer] (ADA) provides guidance for cutoff values for fasting glucose and random glucose. The ADA defines fasting as no caloric intake for at least 8 hours. Fasting plasma glucose results between 100 to 125 mg/dL indicate increased risk for diabetes (prediabetes).Fasting plasma glucose results greater than or equal to 126 mg/dL meet the criteria for diagnosis of diabetes. In the absence of unequivocal hyperglycemia, results should be confirmed by repeat testing. In a patient with classic symptoms of hyperglycemia or hyperglycemic crisis, random plasma glucose results greater than or equal to 200 mg/dL meet the criteria for diagnosis of diabetes.Reference: Standards of Medical Care in Diabetes 2016, [place] [employer]. Diabetes Care. 2016.39(Suppl 1). Performed By: #### B [place], 21039-0, 95679-5, 0-3 ####[place] [facility]ORATORYCLIA [id number] [place] [address] [place] Potassium [Moles/Vol] 3.7 mmol/L Normal 3.7-5.1 [facility] Comment on above: Order Comment: Reginald vieira Type: BLOOD SPECIMENOrdering Facility: [facility] Address: [address] [place] [address] Performed By: #### B HB, 82343-1, 02654-8, 3040-3 ####[place] [facility]ORATORYCLIA [id number] [place] [address] [place] Sodium [Moles/Vol] 133 mmol/L Low 136-144 [facility] Comment on above: Order Comment: Speci men Type: BLOOD SPECIMENOrdering Facility: [facility] Address: [address] [address] Performed By: #### B HB, 81038-3, 20127-4, 3040-3 ####[facility] LABORATORYCLIA [id number] [place] [address] [place] Urea nitrogen [Mass/Vol] 6 mg/dL Low 7-21 [facility] Comment on above: Order Comment: Speci men Type: BLOOD SPECIMENOrdering Facility: [facility] Address: [address] [place] [address] Performed By: #### B HB, 25703-2, 20675-0, 3040-3 ####[facility] LABORATORYCLIA [id number] [address] [place] CBC W Auto Differential pane l (Bld)on 06-01-2022 Basophils (Bld) [#/Vol] 0.06 10*3/uL Normal <0.11 [facility] Comment on above: Order Comment: Speci men Type: BLOOD SPECIMENOrdering Facility: [facility] Address: [address] [place] [address] Performed By: #### 5 7021-8 ####[facility] LABORATORYCLIA [id number] [address] [place] Basophils/100 WBC (Bld) 1.0 % Normal [facility] Comment on above: Order Comment: Speci men Type: BLOOD SPECIMENOrdering Facility: [facility] Address: [address] [place] [address] Performed By: #### 5 7021-8 ####[facility] LABORATORYCLIA [id number] [address] Differential cell count method Nom (Bld) Auto Normal [facility] Comment on above: Order Comment: Speci men Type: BLOOD SPECIMENOrdering Facility: [facility] Address: [address] [place] [address] Performed By: #### 5 7021-8 ####[facility] LABORATORYCLIA [id number] [place] [address] [place] Eosinophils (Bld) [#/Vol] 10*3/uL Normal <0.46 [facility] Comment on above: Order Comment: Speci men Type: BLOOD SPECIMENOrdering Facility: [facility] Address: [address] [place] [address] Performed By: #### 5 7021-8 ####[facility] LABORATORYCLIA [id number] [place] [address] [place] Eosinophils/100 WBC (Bld) 0.3 % Normal [facility] Comment on above: Order Comment: Speci men Type: BLOOD SPECIMENOrdering Facility: [facility] Address: [address] [place] [address] Performed By: #### 5 7021-8 ####[facility] LABORATORYCLIA [id number] [address] [place] Erythrocyte distribution width (RBC) [Ratio] 13.1 % Normal 11.5-15.0 [facility] Comment on above: Order Comment: Speci men Type: BLOOD SPECIMENOrdering Facility: [facility] Address: [address] [place] [address] Performed By: #### 5 7021-8 ####[facility] LABORATORYCLIA [id number] [address] [place] Hematocrit (Bld) [Volume fraction] 43.4 % Normal 36.0-46.0 [facility] Comment on above: Order Comment: Speci men Type: BLOOD SPECIMENOrdering Facility: [facility] Address: [address] [place] [address] Performed By: #### 5 7021-8 ####[facility] LABORATORYCLIA [id number] [address] [place] Hemoglobin (Bld) [Mass/Vol] 14.5 g/dL Normal 11.5-15.5 [facility] Comment on above: Order Comment: Speci men Type: BLOOD SPECIMENOrdering Facility: [facility] Address: [address] [place] [address] Performed By: #### 5 7021-8 ####[facility] LABORATORYCLIA [id number] [address] IMMATURE GRAN % 0.8 % Normal [facility] Comment on above: Order Comment: Speci men Type: BLOOD SPECIMENOrdering Facility: [facility] Address: [address] [place] [address] Performed By: #### 5 7021-8 ####[facility] LABORATORYCLIA [id number] [address] IMMATURE GRAN ABS 0.05 k/uL Normal <0.10 [facility] Comment on above: Order Comment: Speci men Type: BLOOD SPECIMENOrdering Facility: [facility] Address: [address] [place] [address] Performed By: #### 5 7021-8 ####[facility] LABORATORYCLIA [id number] [address] Lymphocytes (Bld) [#/Vol] 1.10 10*3/uL Normal 1.00-4.00 [facility] Comment on above: Order Comment: Speci men Type: BLOOD SPECIMENOrdering Facility: [facility] Address: [address] [place] [address] Performed By: #### 5 7021-8 ####[facility] LABORATORYCLIA [id number] [address] Lymphocytes/100 WBC (Bld) 18.1 % Normal [facility] Comment on above: Order Comment: Speci men Type: BLOOD SPECIMENOrdering Facility: [facility] Address: [address] [place] [address] Performed By: #### 5 7021-8 ####[facility] LABORATORYCLIA [id number] [address] MCH (RBC) [Entitic mass] 30.4 pg Normal 26.0-34.0 [facility] Comment on above: Order Comment: Speci men Type: BLOOD SPECIMENOrdering Facility: [facility] Address: [address] [place] [address] Performed By: #### 5 7021-8 ####[facility] LABORATORYCLIA [id number] [place] [address] [place] MCHC (RBC) [Mass/Vol] 33.4 g/dL Normal 30.5-36.0 [facility] Comment on above: Order Comment: Speci men Type: BLOOD SPECIMENOrdering Facility: [facility] Address: [address] [place] [address] Performed By: #### 5 7021-8 ####[facility] LABORATORYCLIA [id number] [address] [place] MCV (RBC) [Entitic vol] 91.0 fL Normal 80.0-100.0 [facility] Comment on above: Order Comment: Speci men Type: BLOOD SPECIMENOrdering Facility: [facility] Address: [address] [place] [address] Performed By: #### 5 7021-8 ####[facility] LABORATORYCLIA [id number] [address] [place] Monocytes (Bld) [#/Vol] 0.31 10*3/uL Normal <0.87 [facility] Comment on above: Order Comment: Speci men Type: BLOOD SPECIMENOrdering Facility: [facility] Address: [address] [place] [address] Performed By: #### 5 7021-8 ####[facility] LABORATORYCLIA [id number] [address] Monocytes/100 WBC (Bld) 5.1 % Normal [facility] Comment on above: Order Comment: Speci men Type: BLOOD SPECIMENOrdering Facility: [facility] Address: [address] [place] [address] Performed By: #### 5 7021-8 ####[facility] LABORATORYCLIA [id number] [place] [address] [facility] [place] Neutrophils (Bld) [#/Vol] 4.55 10*3/uL Normal 1.45-7.50 [facility] Comment on above: Order Comment: Speci men Type: BLOOD SPECIMENOrdering Facility: [facility] Address: [address] [place] [address] Performed By: #### 5 7021-8 ####[facility] LABORATORYCLIA [id number] [address] [place] Neutrophils/100 WBC (Bld) 74.7 % Normal [facility] Comment on above: Order Comment: Speci men Type: BLOOD SPECIMENOrdering Facility: [facility] Address: [address] [place] [address] Performed By: #### 5 7021-8 ####[facility] LABORATORYCLIA [id number] [place] [address] [place] Nucleated RBC (Bld) [#/Vol] 10*3/uL Normal <0.01 [facility] Comment on above: Order Comment: Speci men Type: BLOOD SPECIMENOrdering Facility: [facility] Address: [address] [place] [address] Performed By: #### 5 7021-8 ####[facility] LABORATORYCLIA [id number] [address] Nucleated RBC/100 WBC (Bld) [Ratio] 0.0 /100 WBC Normal [facility] Comment on above: Order Comment: Speci men Type: BLOOD SPECIMENOrdering Facility: [facility] Address: [address] [place] [address] Performed By: #### 5 7021-8 ####[facility] LABORATORYCLIA [id number] [address] [place] Platelet mean volume (Bld) [Entitic vol] 8.9 fL Low 9.0-12.7 [facility] Comment on above: Order Comment: Speci men Type: BLOOD SPECIMENOrdering Facility: [facility] Address: [address] [place] [address] Performed By: #### 5 7021-8 ####[facility] LABORATORYCLIA [id number] [place] [address] [place] [place] Platelets (Bld) [#/Vol] 395 10*3/uL Normal 150-400 [facility] Comment on above: Order Comment: Speci men Type: BLOOD SPECIMENOrdering Facility: [facility] Address: [address] [place] [address] Performed By: #### 5 7021-8 ####[facility] LABORATORYCLIA [id number] [address] OF [facility] RBC (Bld) [#/Vol] 4.77 10*6/uL Normal 3.90-5.20 [facility] Comment on above: Order Comment: Speci men Type: BLOOD SPECIMENOrdering Facility: [facility] Address: [address] [place] [address] Performed By: #### 5 7021-8 ####[facility] LABORATORYCLIA [id number] [address] OF [place] WBC (Bld) [#/Vol] 6.09 10*3/uL Normal 3.70-11.00 [facility] Comment on above: Order Comment: Speci men Type: BLOOD SPECIMENOrdering Facility: [facility] Address: [address] [place] [address] Performed By: #### 5 7021-8 ####[facility] LABORATORYCLIA [id number] [address] OF [place] CRP [facility] CRP [Mass/Vol] 0.6 mg/dL Normal <0.9 [facility] Comment on above: Order Comment: Speci men Type: BLOOD SPECIMENOrdering Facility: [facility] Address: [address] [place] [address] Performed By: #### 1 988-5, 78933-4 ####[facility] LABORATORYCLIA [id number] [address] D dimer FEU PPP-mCncon 06-01 Fibrin D-dimer FEU (PPP) [Mass/Vol] 640 ng/mL FEU High <500 [facility] Comment on above: Order Comment: Speci men Type: BLOOD SPECIMENOrdering Facility: [facility] Address: [address] [place] [address] Performed By: #### 4 8065-7 ####COTTRE[facility] LABORATORYCLIA [id number] [place] [address] [place] ECG COMPLETEon 06-01-2022 ECG COMPLETE Normal [facility] ED NOTEon 06-01-2022 ED NOTE HNO ID: [id number] Author: Irina Rao RN Service: Nursing Author Type: Registered Nurse Type: ED Notes Filed: 06/01/2022 5:33 PM Note Text: 1800 blood glucose check. Pt bg 115 @1733. Normal [facility] ED NOTE HNO ID: [id number] Author: Irina Rao RN Service: Nursing Author Type: Registered Nurse Type: ED Notes Filed: 06/01/2022 5:00 PM Note Text: 2 attempts made to call ICU for report, will re-attempt, NOM aware. [facility] ED NOTE HNO ID: [id number] Author: Irina Rao RN Service: Nursing Author Type: Registered Nurse Type: ED Notes Filed: 06/01/2022 3:59 PM Note Text: Pt up to bed side commode for ordered UA. [facility] ED NOTE HNO ID: [id number] Author: Irina Rao RN Service: Nursing Author Type: Registered Nurse Type: ED Notes Filed: 06/01/2022 3:01 PM Note Text: Bedside commode brought to pt bedside, urine specimen cup provided. Pt aware sample is ordered. [facility] ED NOTE Normal [facility] ED PROV NOTEon 06-01-2022 ED PROV NOTE Normal [facility] FLUABV+SARS-CoV-2+RSV Pnl Re sp KENNA+probeon 06-01-2022 FLUABV+SARS-CoV-2+RSV Pnl Resp KENNA+probe Abnormal [facility] Comment on above: Performed By: #### 9 5941-1 ####[place] LABORATORYCLIA [id number] [place] [id number] [place] Gas and Carbon monoxide pane l (BldV)on 06-01-2022 BASE DEFICIT, VENOUS -12 mmol/L Low -2-0 [facility] Comment on above: Order Comment: Speci men Type: VENOUS BLOOD SPECIMENOrdering Facility: [facility] Address: [address] [place] [address] Performed By: #### 2 4344-4 ####[facility] RESPIRATORYCLIA [id number] [facility] [id number] [address] [address] Carboxyhemoglobin (BldV) [Mass fraction] 1.4 % Normal 0.0-2.0 [facility] Comment on above: Order Comment: Speci men Type: VENOUS BLOOD SPECIMENOrdering Facility: [facility] Address: [address] [place] [address] Result Comment: Carb oxyhemoglobin Reference Range for Smokers: 2.0-8.0% Performed By: #### 2 4344-4 ####[facility] RESPIRATORYCLIA [id number] [facility] [id number] [address] CO2 (BldV) [Partial pressure] 25 mm[Hg] Low 42-55 [facility] Comment on above: Order Comment: Speci men Type: VENOUS BLOOD SPECIMENOrdering Facility: [facility] Address: [address] [place] [address] Performed By: #### 2 4344-4 ####[facility] RESPIRATORYCLIA [id number] [facility] [id number] [address] [address] CO2 adjusted to patient's actual temperature (BldV) [Partial pressure] Normal [facility] Comment on above: Order Comment: Speci men Type: VENOUS BLOOD SPECIMENOrdering Facility: [facility] Address: [address] [place], [place] [address] Performed By: #### 2 4344-4 ####[facility] RESPIRATORYCLIA [id number] [facility]IR[facility] [id number] [address] [address] HCO3 (Bld) [Moles/Vol] 12 mmol/L Low 24-28 [facility] Comment on above: Order Comment: Speci men Type: VENOUS BLOOD SPECIMENOrdering Facility: [facility] Address: [address] [place] [address] Performed By: #### 2 4344-4 ####[facility] RESPIRATORYCLIA [id number] [facility]OS[facility] RES[facility]IR[facility] [id number] [address] [address] Hemoglobin (Bld) [Mass/Vol] 19.8 g/dL High 11.5-15.5 [facility] Comment on above: Order Comment: Speci men Type: VENOUS BLOOD SPECIMENOrdering Facility: [facility] Address: [address] [place] [address] Performed By: #### 2 4344-4 ####[place] RESPIRATORYCLIA [id number] [facility] RES[facility]IRAT[facility] [id number] [address] Lactate [Moles/Vol] 3.9 mmol/L High 0.5-2.2 [facility] Comment on above: Order Comment: Speci men Type: VENOUS BLOOD SPECIMENOrdering Facility: [facility] Address: [address] [place] [address] Performed By: #### 2 4344-4 ####[place] [facility]ORYCOP[facility] [id number] [facility] RESPIRATORY [id number] [address] [address] O2 THERAPY RA=Room Air Normal [facility] Comment on above: Order Comment: Speci men Type: VENOUS BLOOD SPECIMENOrdering Facility: [facility] Address: [address] [place] [address] Performed By: #### 2 4344-4 ####[place] [facility]ORYCOP[facility] [id number] [facility] RESPIRATORY [id number] [address] Oxygen (BldV) [Partial pressure] 37 mm[Hg] Normal 35-45 [facility] Comment on above: Order Comment: Speci men Type: VENOUS BLOOD SPECIMENOrdering Facility: [facility] Address: [address] Performed By: #### 2 4344-4 ####[place] [facility]ORY[facility] [id number] [facility] RESPIRATORY [id number] [address] Oxygen adjusted to patient's actual temperature (BldV) [Partial pressure] Normal [facility] Comment on above: Order Comment: Speci men Type: VENOUS BLOOD SPECIMENOrdering Facility: [facility] Address: [address] [place] [address] Performed By: #### 2 4344-4 ####[facility] RESPIRATORYCLIA [id number] [facility] RESPIRATORY [id number] [address] [address] Oxyhemoglobin (BldV) [Mass fraction] 67 % Normal 60-85 [facility] Comment on above: Order Comment: Speci men Type: VENOUS BLOOD SPECIMENOrdering Facility: [facility] Address: [address] [place] [address] Performed By: #### 2 4344-4 ####[facility] RESPIRATORYCLIA [id number] [facility]OS[facility] RESPIRATORY [id number] [place] [id number] pH (BldV) 7.32 [pH] Normal 7.32-7.42 [facility] Comment on above: Order Comment: Speci men Type: VENOUS BLOOD SPECIMENOrdering Facility: [facility] Address: [address] [place] [address] Performed By: #### 2 4344-4 ####[facility] RESPIRATORYCLIA [id number] [facility] RESPIRATORY [id number] [place] [address] pH adjusted to patient's actual temperature (BldV) Normal [facility] Comment on above: Order Comment: Speci men Type: VENOUS BLOOD SPECIMENOrdering Facility: [facility] Address: [address] [place] [address] Performed By: #### 2 4344-4 ####[facility] RESPIRATORYCLIA [id number] [facility]OS[facility] RESPIRATORY [id number] [address] Potassium [Moles/Vol] 3.5 mmol/L Normal 3.5-5.0 [facility] Comment on above: Order Comment: Speci men Type: VENOUS BLOOD SPECIMENOrdering Facility: [facility] Address: [address] [place] [address] Performed By: #### 2 4344-4 ####[facility] RESPIRATORYCLIA [id number] [facility] RES[facility] [id number] [address] HISTORY PHYSICALon 08-13-202 2 HISTORY PHYSICAL Normal [facility] Hepatic function 2000 panelo n 06-01-2022 Albumin [Mass/Vol] 3.9 g/dL Normal 3.9-4.9 [facility] Comment on above: Order Comment: Speci men Type: BLOOD SPECIMENOrdering Facility: [facility] Address: [address] [place] [address] Performed By: #### [place], [address]-8, 28025-2, 3040-3 ####[facility] LABORATORYCLIA [id number] [place] [address] [place] ALP [Catalytic activity/Vol] 236 U/L High 34-123 [facility] Comment on above: Order Comment: Speci men Type: BLOOD SPECIMENOrdering Facility: [facility] Address: [address] [place] [address] Performed By: #### [place], 47519-4, 80508-5, 3040-3 ####[facility] LABORATORYCLIA [id number] [address] STATES [place] ALT [Catalytic activity/Vol] 17 U/L Normal 7-38 [facility] Comment on above: Order Comment: Speci men Type: BLOOD SPECIMENOrdering Facility: [facility] Address: [address] [place] [address] Performed By: #### [place], 70654-8, 32364-4, 3040-3 ####[facility] LABORATORYCLIA [id number] [address] [place] AST [Catalytic activity/Vol] Normal [facility] Comment on above: Order Comment: Speci men Type: BLOOD SPECIMENOrdering Facility: [facility] Address: [address] [place] [address] Result Comment: Unab le to assay due to interference from hemolysis. Suggest reorder as clinically indicated. Performed By: #### B [place], 71912-7, 20274-5, 3040-3 ####[facility] LABORATORYCLIA [id number] [place] [address] [place] Bilirubin [Mass/Vol] 0.5 mg/dL Normal 0.2-1.3 [facility] Comment on above: Order Comment: Speci men Type: BLOOD SPECIMENOrdering Facility: [facility] Address: [address] [place] [address] Performed By: #### B HB, 98961-0, 90078-1, 3040-3 ####[facility] LABORATORYCLIA [id number] [place], [place] [address] [place] [address] OF [facility] Bilirubin.conjugated [Mass/Vol] mg/dL Normal <0.2 [facility] Comment on above: Order Comment: Speci men Type: BLOOD SPECIMENOrdering Facility: [facility] Address: [address] [place] [address] Result Comment: Resu lts may be falsely decreased due to interference from hemolysis. Suggest reorder as clinically indicated. Performed By: #### [place], 18647-3, 83122-6, 3040-3 ####[facility] LABORATORYCLIA [id number] [address] STATES OF [facility] Protein [Mass/Vol] 7.8 g/dL Normal 6.3-8.0 [facility] Comment on above: Order Comment: Speci men Type: BLOOD SPECIMENOrdering Facility: [facility] Address: [address] [place] [address] Performed By: #### B HB, 23434-4, 08047-6, 3040-3 ####[facility] LABORATORYCLIA [id number] [address] OF [place] KETONES/ACETONE/BHBon 2021 Beta hydroxybutyrate [Moles/Vol] 3.43 mmol/L High <0.28 [facility] Comment on above: Order Comment: Speci men Type: BLOOD SPECIMENOrdering Facility: [facility] Address: [address] [place] [address] Performed By: #### B HB, 62629-6 ####[facility] LABORATORYCLIA [id number] [address] OF [place] Beta hydroxybutyrate [Moles/Vol] >4.50 High <0.28 [facility] Comment on above: Order Comment: Speci men Type: BLOOD SPECIMENOrdering Facility: [facility] Address: [address] [place] [address] Performed By: #### [place], 95343-3, 72579-7, 3040-3 ####[facility] LABORATORYCLIA [id number] [place] [address] [place] Lipase SerPl-cCncon 06-01-20 22 Lipase [Catalytic activity/Vol] 7 U/L Low 16-61 [facility] Comment on above: Order Comment: Speci men Type: BLOOD SPECIMENOrdering Facility: [facility] Address: [address] [place] [address] Performed By: #### [place], 14739-3, 02800-7, 3040-3 ####[facility] LABORATORYCLIA [id number] [place] [address] [place] STAPH AUREUS PCRon S. aureus and MRSA panel KENNA+probe (Nose) Abnormal Negative [facility] Comment on above: Order Comment: Speci men Type: SWAB OF INTERNAL NOSEOrdering Facility: [facility] Address: [address] [place] [address] Result Comment: Posi tive for Staphylococcus aureus by PCR.Negative for MRSA by PCR Performed By: #### S APCR ####[facility] LABCLIA [id number] [place] [address] [place] URINALYSIS, REFLEX MICROSCOP ICon 06-01-2022 Bacteria LM.HPF (Urine sed) [#/Area] Few Abnormal None Seen [facility] Comment on above: Order Comment: Speci men Type: URINE SPECIMENOrdering Facility: [facility] Address: [address] [place] [address] Performed By: #### L [id number] ####[facility] LABORATORYCLIA [id number] [place] [address] [place] Bilirubin Ql (U) 2+ Abnormal Negative [facility] Comment on above: Order Comment: Speci men Type: URINE SPECIMENOrdering Facility: [facility] Address: [address] [place], [place] [address] Result Comment: Sugg est correlation with clinical findings and serum bilirubin if clinically indicated. Performed By: #### L [id number] ####[facility] LABORATORYCLIA [id number] [address] Clarity (Unsp spec) Slightly Cloudy Abnormal Clear [facility] Comment on above: Order Comment: Speci men Type: URINE SPECIMENOrdering Facility: [facility] Address: [address] [place] [address] Performed By: #### L [id number] ####[facility] LABORATORYCLIA [id number] [address] Color (U) Yellow Normal Yellow [facility] Comment on above: Order Comment: Speci men Type: URINE SPECIMENOrdering Facility: [facility] Address: [address] [place] [address] Performed By: #### L [id number] ####[facility] LABORATORYCLIA [id number] [address] Epithelial cells LM.HPF (Urine sed) [#/Area] Many Normal [facility] Comment on above: Order Comment: Speci men Type: URINE SPECIMENOrdering Facility: [facility] Address: [address] [place] [address] Performed By: #### L [id number] ####[facility] LABORATORYCLIA [id number] [address] Glucose Test strip (U) [Mass/Vol] 2+ Abnormal Negative [facility] Comment on above: Order Comment: Speci men Type: URINE SPECIMENOrdering Facility: [facility] Address: [address] [place] [address] Performed By: #### L [id number] ####[facility] LABORATORYCLIA [id number] [address] Hemoglobin Ql (U) Negative Normal Negative [facility] Comment on above: Order Comment: Speci men Type: URINE SPECIMENOrdering Facility: [facility] Address: [address] [place] [address] Performed By: #### L [id number] ####[facility] LABORATORYCLIA [id number] [place] [address] [place] Ketones Ql (U) 3+ Abnormal Negative [facility] Comment on above: Order Comment: Speci men Type: URINE SPECIMENOrdering Facility: [facility] Address: [address] [place] [address] Performed By: #### L [id number] ####[facility] LABORATORYCLIA [id number] [place] [address] [place] Leukocyte esterase Test strip Ql (U) 1+ Abnormal Negative [facility] Comment on above: Order Comment: Speci men Type: URINE SPECIMENOrdering Facility: [facility] Address: [address] [place] [address] Performed By: #### L [id number] ####[facility] LABORATORYCLIA [id number] [address] [place] Nitrite Ql (U) Negative Normal Negative [facility] Comment on above: Order Comment: Speci men Type: URINE SPECIMENOrdering Facility: [facility] Address: [address] [place] [address] Performed By: #### L [id number] ####[facility] LABORATORYCLIA [id number] [address] STATES [facility] pH (U) 6.0 [pH] Normal 5.0-8.0 [facility] Comment on above: Order Comment: Speci men Type: URINE SPECIMENOrdering Facility: [facility] Address: [address] [place] [address] Performed By: #### L [id number] ####[facility] LABORATORYCLIA [id number] [place] [address] [place] Protein (U) [Mass/Vol] 1+ Abnormal Negative [facility] Comment on above: Order Comment: Speci men Type: URINE SPECIMENOrdering Facility: [facility] Address: [address] [place] [address] Performed By: #### L [id number] ####[facility] LABORATORYCLIA [id number] [address] [address] RBC LM.HPF (Urine sed) [#/Area] 0-3 /HPF Normal 0-3 /HPF [facility] Comment on above: Order Comment: Speci men Type: URINE SPECIMENOrdering Facility: [facility] Address: [address] [place] [address] Performed By: #### L [id number] ####[place] LABORATORYCLIA [id number] [address] Specific gravity (U) [Rel density] 1.025 Normal 1.005-1.030 [facility] Comment on above: Order Comment: Speci men Type: URINE SPECIMENOrdering Facility: [facility] Address: [address] [place] [address] Performed By: #### L [id number] ####[place] LABORATORYCLIA [id number] [address] Urobilinogen Ql (U) 0.2 EU/dL Normal 0.2-1.0 EU/dL [facility] Comment on above: Order Comment: Speci men Type: URINE SPECIMENOrdering Facility: [facility] Address: [address] [place] [address] Performed By: #### L [id number] ####[facility] LABORATORYCLIA [id number] [address] WBC LM.HPF (Urine sed) [#/Area] 0-5 /HPF Normal 0-5 /HPF [facility] Comment on above: Order Comment: Speci men Type: URINE SPECIMENOrdering Facility: [facility] Address: [address] [place] [address] Performed By: #### L [id number] ####[place] LABORATORYCLIA [id number] [address] [place] ANES POSTPROC EVALon 022 ANES POSTPROC EVAL [facility] ANES PRE-OPon 04-26-2022 ANES PRE-OP [facility] CASE MANAGEMon 04-26-2022 CASE MANAGEM Normal [facility] CBC panel Auto (Bld)on 04-26 Erythrocyte distribution width (RBC) [Ratio] 12.9 % Normal 11.5-15.0 [facility] Comment on above: Order Comment: Speci men Type: BLOOD SPECIMENOrdering Facility: [facility] Address: [address] [place] [address] Performed By: #### 5 8410-2 ####[facility] LABORATORYCLIA [id number] [address] Hematocrit (Bld) [Volume fraction] 33.3 % Low 36.0-46.0 [facility] Comment on above: Order Comment: Speci men Type: BLOOD SPECIMENOrdering Facility: [facility] Address: [address] [place] [address] Performed By: #### 5 8410-2 ####[facility] LABORATORYCLIA [id number] [address] OF [facility] Hemoglobin (Bld) [Mass/Vol] 11.0 g/dL Low 11.5-15.5 [facility] Comment on above: Order Comment: Speci men Type: BLOOD SPECIMENOrdering Facility: [facility] Address: [address] [place] [address] Performed By: #### 5 8410-2 ####[facility] LABORATORYCLIA [id number] [address] MCH (RBC) [Entitic mass] 30.4 pg Normal 26.0-34.0 [facility] Comment on above: Order Comment: Speci men Type: BLOOD SPECIMENOrdering Facility: [facility] Address: [address] [place] [address] Performed By: #### 5 8410-2 ####[facility] LABORATORYCLIA [id number] [address] MCHC (RBC) [Mass/Vol] 33.0 g/dL Normal 30.5-36.0 [facility] Comment on above: Order Comment: Speci men Type: BLOOD SPECIMENOrdering Facility: [facility] Address: [address] [place] [address] Performed By: #### 5 8410-2 ####[facility] LABORATORYCLIA [id number] [address] OF [place] MCV (RBC) [Entitic vol] 92.0 fL Normal 80.0-100.0 [facility] Comment on above: Order Comment: Speci men Type: BLOOD SPECIMENOrdering Facility: [facility] Address: [address] [place] [address] Performed By: #### 5 8410-2 ####[facility] LABORATORYCLIA [id number] [address] [place] Nucleated RBC (Bld) [#/Vol] 10*3/uL Normal <0.01 [facility] Comment on above: Order Comment: Speci men Type: BLOOD SPECIMENOrdering Facility: [facility] Address: [address] [place] [address] Performed By: #### 5 8410-2 ####[facility] LABORATORYCLIA [id number] [address] Platelet mean volume (Bld) [Entitic vol] 8.9 fL Low 9.0-12.7 [facility] Comment on above: Order Comment: Speci men Type: BLOOD SPECIMENOrdering Facility: [facility] Address: [address] [place] [address] Performed By: #### 5 8410-2 ####[facility] LABORATORYCLIA [id number] [address] Platelets (Bld) [#/Vol] 294 10*3/uL Normal 150-400 [facility] Comment on above: Order Comment: Speci men Type: BLOOD SPECIMENOrdering Facility: [facility] Address: [address] [place] [address] Performed By: #### 5 8410-2 ####[facility] LABORATORYCLIA [id number] [address] [place] RBC (Bld) [#/Vol] 3.62 10*6/uL Low 3.90-5.20 [facility] Comment on above: Order Comment: Speci men Type: BLOOD SPECIMENOrdering Facility: [facility] Address: [address] [place] [address] Performed By: #### 5 8410-2 ####[facility] LABORATORYCLIA [id number] [place] [address] [place] WBC (Bld) [#/Vol] 5.82 10*3/uL Normal 3.70-11.00 [facility] Comment on above: Order Comment: Speci men Type: BLOOD SPECIMENOrdering Facility: [facility] Address: [address] [place], [place] [address] [address] Performed By: #### 5 8410-2 ####[facility] LABORATORYCLIA [id number] [place] [address] [place] CNDSon 04-26-2022 CNDS Normal [facility] CONSULT PROGon 04-26-2022 CONSULT PROG [facility] Comprehensive metabolic 2000 panelon 04-26-2022 Albumin [Mass/Vol] 3.0 g/dL Low 3.9-4.9 [facility] Comment on above: Order Comment: Speci men Type: BLOOD SPECIMENOrdering Facility: [facility] Address: [address] [place] [address] [place] [address] Performed By: #### 2 777-1, , ####COTTRE[facility] LABORATORYCLIA [id number] [place] [address] [place] ALP [Catalytic activity/Vol] 141 U/L High 34-123 [facility] Comment on above: Order Comment: Speci men Type: BLOOD SPECIMENOrdering Facility: [facility] Address: [address] [place], [place] [address] [address] Performed By: #### 2 777-1, , 42732-0 ####COTTRE[facility] LABORATORYCLIA [id number] [place] [address] [place] ALT [Catalytic activity/Vol] 7 U/L Normal 7-38 [facility] Comment on above: Order Comment: Speci men Type: BLOOD SPECIMENOrdering Facility: [facility] Address: [address] [place], [place] [address] [address] Performed By: #### 2 777-1, , ####[facility] LABORATORYCLIA [id number] [place] [address] [place] Anion gap [Moles/Vol] 14 mmol/L Normal 9-18 [facility] Comment on above: Order Comment: Speci men Type: BLOOD SPECIMENOrdering Facility: [facility] Address: [address] [place] [address] Performed By: #### 2 777-1, , ####[facility] LABORATORYCLIA [id number] [place] [address] [place] AST [Catalytic activity/Vol] 12 U/L Low 13-35 [facility] Comment on above: Order Comment: Speci men Type: BLOOD SPECIMENOrdering Facility: [facility] Address: [address] [place] [address] Performed By: #### 2 777-1, , ####[facility] LABORATORYCLIA [id number] [place] [address] [place] Bilirubin [Mass/Vol] 0.2 mg/dL Normal 0.2-1.3 [facility] Comment on above: Order Comment: Speci men Type: BLOOD SPECIMENOrdering Facility: [facility] Address: [address] [place] [address] Performed By: #### 2 777-1, , ####[facility] LABORATORYCLIA [id number] [place] [address] [place] Calcium [Mass/Vol] 8.8 mg/dL Normal 8.5-10.2 [facility] Comment on above: Order Comment: Speci men Type: BLOOD SPECIMENOrdering Facility: [facility] Address: [address] [place] [address] Performed By: #### 2 777-1, , ####[facility] LABORATORYCLIA [id number] [place] [address] [place] Chloride [Moles/Vol] 106 mmol/L High 97-105 [facility] Comment on above: Order Comment: Speci men Type: BLOOD SPECIMENOrdering Facility: [facility] Address: [address] [place] [address] Performed By: #### 2 777-1, , ####[facility] LABORATORYCLIA [id number] [address] CO2 [Moles/Vol] 18 mmol/L Low 22-30 [facility] Comment on above: Order Comment: Speci men Type: BLOOD SPECIMENOrdering Facility: [facility] Address: [address] [place] [address] Performed By: #### 2 777-1, , ####[facility] LABORATORYCLIA [id number] [address] Creatinine [Mass/Vol] 0.45 mg/dL Low 0.58-0.96 [facility] Comment on above: Order Comment: Speci men Type: BLOOD SPECIMENOrdering Facility: [facility] Address: [address] [place] [address] Performed By: #### 2 777-1, , ####[facility] LABORATORYCLIA [id number] [address] ESTIMATED GLOMERULAR FILTRATION RATE 139 mL/min/1.73m??? Normal >=60 [facility] Comment on above: Order Comment: Speci men Type: BLOOD SPECIMENOrdering Facility: [facility] Address: [address] [place] [address] Result Comment: Steffi mated Glomerular Filtration Rate (eGFR) is calculated using the 2020 CKD-EPI creatinine equation. This equation utilizes serum creatinine, sex, and age as parameters. The creatinine assay has traceable calibration to isotope dilution-mass spectrometry. Refer to KDIGO guidelines for clinical interpretation. In patients with unstable renal function, e.g. those with acute kidney injury, the eGFR may not accurately reflect actual GFR. Performed By: #### 2 777-1, , ####[facility] LABORATORYCLIA [id number] [place] [address] [place] Glucose [Mass/Vol] 134 mg/dL High 74-99 [facility] Comment on above: Order Comment: Reginald vieira Type: BLOOD SPECIMENOrdering Facility: [facility] Address: [address] [place] [address] Result Comment: The [place] Diabetes Association (ADA) provides guidance for cutoff values for fasting glucose and random glucose. The ADA defines fasting as no caloric intake for at least 8 hours. Fasting plasma glucose results between 100 to 125 mg/dL indicate increased risk for diabetes (prediabetes).Fasting plasma glucose results greater than or equal to 126 mg/dL meet the criteria for diagnosis of diabetes. In the absence of unequivocal hyperglycemia, results should be confirmed by repeat testing. In a patient with classic symptoms of hyperglycemia or hyperglycemic crisis, random plasma glucose results greater than or equal to 200 mg/dL meet the criteria for diagnosis of diabetes.Reference: Standards of Medical Care in Diabetes 2016, [place] Diabetes Association. Diabetes Care. 2016.39(Suppl 1). Performed By: #### 2 777-1, , ####[place] LABORATORYCLIA [id number] [place] [address] [place] Potassium [Moles/Vol] 3.7 mmol/L Normal 3.7-5.1 [facility] Comment on above: Order Comment: Reginald vieira Type: BLOOD SPECIMENOrdering Facility: [facility] Address: [address] [place], [place] [address] Performed By: #### 2 777-1, , ####[facility] [place] [facility]ORATORYCLIA [id number] [place] [address] [place] Protein [Mass/Vol] 5.8 g/dL Low 6.3-8.0 [facility] Comment on above: Order Comment: Reginald vieira Type: BLOOD SPECIMENOrdering Facility: [facility] Address: [address] [place] [address] Performed By: #### 2 777-1, , ####[place] LABORATORYCLIA [id number] [place] [address] [place] Sodium [Moles/Vol] 138 mmol/L Normal 136-144 [facility] Comment on above: Order Comment: Speci men Type: BLOOD SPECIMENOrdering Facility: [facility] Address: [address] [place] [address] Performed By: #### 2 777-1, , ####[facility] LABORATORYCLIA [id number] [address] [facility] Urea nitrogen [Mass/Vol] 6 mg/dL Low 7-21 [facility] Comment on above: Order Comment: Speci men Type: BLOOD SPECIMENOrdering Facility: [facility] Address: [address] [place] [address] Performed By: #### 2 777-1, , ####[facility] LABORATORYCLIA [id number] [address] [place] HCG QUAL BLDon 04-26-2022 HCG, QUALITATIVE Negative Normal Negative [facility] Comment on above: Order Comment: Speci men Type: BLOOD SPECIMENOrdering Facility: [facility] Address: [address] [place] [address] Performed By: #### H CG ####[facility] LABORATORYCLIA [id number] [address] [place] Magnesium SerPl-mCncon 04-26 Magnesium [Mass/Vol] 1.5 mg/dL Low 1.7-2.3 [facility] Comment on above: Order Comment: Speci men Type: BLOOD SPECIMENOrdering Facility: [facility] Address: [address] [place] [address] Performed By: #### 2 777-1, , ####[facility] LABORATORYCLIA [id number] [place] [address] [place] NURSING PROGon 04-26-2022 NURSING PROG Normal [facility] Phosphate SerPl-mCncon 04-26 Phosphate [Mass/Vol] 4.0 mg/dL Normal 2.7-4.8 [facility] Comment on above: Order Comment: Speci men Type: BLOOD SPECIMENOrdering Facility: [facility] Address: [address] [place] [address] Performed By: #### 2 777-1, 21047-3, 49664-0 ####[facility] LABORATORYCLIA [id number] [address] SURGICAL PATHOLOGYon 022 CASE REPORT Normal [facility] Comment on above: Order Comment: Speci men Type: TISSUE SPECIMENOrdering Facility: [facility] Address: [address] [place] [address] Result Comment: Surg ica Pathology Report Case: [id number] Provider: Michelle Ribera MD Collected: 04/26/2022 10:21 AMOrdering Location: [facility] Endoscopy Received: 04/26/2022 01:17 PMPathologist: LISSA Diamondpecimens: A) - DUODENUM BIOPSY B) - STOMACH BIOPSY C) - ESOPHAGUS BIOPSY, esophagitis Performed By: #### S ####[facility] LABORATORYCLIA [id number] [address] LABCLIA [id number] [address] DIAGNOSIS COMMENT B. No microorganisms morphologically compatible with H. Pylori are identified on routine H AND E stained sections. [facility] Comment on above: Order Comment: Speci men Type: TISSUE SPECIMENOrdering Facility: [facility] Address: [address] [place] [address] Performed By: #### S ####[facility] LABORATORYCLIA [id number] [address] LABCLIA [id number] [address] FINAL DIAGNOSIS [facility] Comment on above: Order Comment: Speci men Type: TISSUE SPECIMENOrdering Facility: [facility] Address: [address] [place] [address] Result Comment: Migue elias, biopsy:- Duodenal mucosa with no pathologic diagnostic abnormality; negative for celiac disease, granulomas and dysplasia.B. Stomach, biopsy:- Gastric antral body type mucosa with mild chronic inactive gastritis; see comment.C. Esophagus, biopsy:- Squamous mucosa with parakeratosis and scattered intraepithelial neutrophils; ballooning degeneration of the surface epithelium. Performed By: #### S ####[facility] LABORATORYCLIA [id number] [address] LABCLIA [id number] [address] FINAL PERFORMING LAB Normal [facility] Comment on above: Order Comment: Speci men Type: TISSUE SPECIMENOrdering Facility: [facility] Address: [address] [place] [address] Result Comment: Diag nostic interpretation performed at [facility], [address] [place] [address] CLIA# [id number] Director: Karrie Johnson M.D. Performed By: #### S ####[facility] LABORATORYCLIA [id number] [address] LABCLIA [id number] [address] GROSS DESCRIPTION Normal [facility] Comment on above: Order Comment: Speci men Type: TISSUE SPECIMENOrdering Facility: [facility] Address: [address] [place] [address] Result Comment: A. D UODENUM BIOPSY.Received in formalin are multiple pieces of stanton, soft tissue aggregating to 1.3 x 0.2 x 0.2 cm. Totally submitted in one cassette.B. STOMACH BIOPSY.Received in formalin are multiple pieces of stanton, soft tissue aggregating to 0.9 x 0.2 x 0.2 cm. Totally submitted in one cassette.C. ESOPHAGUS BIOPSY.Received in formalin is one piece of stanton, soft tissue measuring 0.2 x 0.2 x 0.1 cm. Totally submitted in one cassette.Gross examination performed at [facility] [address] [place], [place] [address]QLR 04/26/2022 5:29 PM Performed By: #### S ####[facility] LABORATORYCLIA [id number] [address] LABCLIA [id number] [address] OF [facility] Upper GI endoscopyon 022 Upper GI endoscopy Normal [facility] ALKALINE PHOSPHATASE ISOENZY MES (P)on 04-25-2022 ALK PHOS BONE % 29.1 % Normal 10.7-68.3 [facility] Comment on above: Order Comment: Speci men Type: BLOOD SPECIMENOrdering Facility: [facility] Address: [address] [place] [address] Performed By: #### A LKISOP ####[facility] LABCLIA [id number] [address] ALK PHOS LIVER % 70.9 % Normal 26.0-86.2 [facility] Comment on above: Order Comment: Speci men Type: BLOOD SPECIMENOrdering Facility: [facility] Address: [address] [place] [address] Performed By: #### A LKISOP ####[facility] LABCLIA [id number] [address] BONE FRACTION 47.7 U/L Normal 12.9-52.6 [facility] Comment on above: Order Comment: Speci men Type: BLOOD SPECIMENOrdering Facility: [facility] Address: [address] [place], [place] [address] Performed By: #### A LKISOP ####[facility] LABCLIA [id number] [address] [place] INTESTINE FRACTION 0.0 U/L Normal 0.0-16.3 [facility] Comment on above: Order Comment: Speci men Type: BLOOD SPECIMENOrdering Facility: [facility] Address: [address] [place] [address] Performed By: #### A LKISOP ####[facility] LABCLIA [id number] [address] LIVER FRACTION 116.3 U/L High 16.0-69.3 [facility] Comment on above: Order Comment: Speci men Type: BLOOD SPECIMENOrdering Facility: [facility] Address: [address] [place] [address] Performed By: #### A LKISOP ####[facility] LABIA [id number] [address] Neutrophils/100 WBC (Bld) 0.0 % Normal 0.0-24.2 [facility] Comment on above: Order Comment: Speci men Type: BLOOD SPECIMENOrdering Facility: [facility] Address: [address] [place] [address] Performed By: #### A LKISOP ####[facility] LABIA [id number] [address] [place] ALLIED HEALTHon 04-25-2022 ALLIED HEALTH Normal [facility] ALLIED HEALTH Normal [facility] ALP SerPl-cCncon 04-25-2022 ALP [Catalytic activity/Vol] 164 U/L High 34-123 [facility] Comment on above: Order Comment: Speci men Type: BLOOD SPECIMENOrdering Facility: [facility] Address: [address] [place] [address] Performed By: #### 2 324-2, 6768-6 ####[facility] LABIA [id number] [address] [place] ARTERIAL BLOOD GASESon 04-25 Carboxyhemoglobin (BldA) [Mass fraction] 1.7 % Normal 0.0-2.0 [facility] Comment on above: Order Comment: Speci men Type: ARTERIAL BLOOD SPECIMENOrdering Facility: [facility] Address: [address] [place] [address] Result Comment: Carb oxyhemoglobin Reference Range for Smokers: 2.0-8.0% Performed By: #### A LLBG ####[facility] RESPIRATORYCLIA [id number] [facility] RESPIRAT[facility] [id number] [address] CO2 (Bld) [Partial pressure] mm[Hg] Low 36-46 [facility] Comment on above: Order Comment: Speci men Type: ARTERIAL BLOOD SPECIMENOrdering Facility: [facility] Address: [address] [place] [address] Performed By: #### A LLBG ####[place] RESPIRATORYIA [id number] [facility]OSP[facility] RESPIRATORY [id number] [address] CO2 adjusted to patient's actual temperature (Bld) [Partial pressure] Normal [facility] Comment on above: Order Comment: Speci men Type: ARTERIAL BLOOD SPECIMENOrdering Facility: [facility] Address: [address] [place] [place] [address] Performed By: #### A LLBG ####[place] [facility] [id number] [facility] RESPIRATORY [id number] [address] [address] Hemoglobin (Bld) [Mass/Vol] 13.2 g/dL Normal 11.5-15.5 [facility] Comment on above: Order Comment: Speci men Type: ARTERIAL BLOOD SPECIMENOrdering Facility: [facility] Address: [address] [place] [address] Performed By: #### A LLBG ####[place] RESPIRATORYIA [id number] [facility]OSPITAL RESPIRATORY [id number] [address] Lactate [Moles/Vol] 3.2 mmol/L High 0.5-2.2 [facility] Comment on above: Order Comment: Speci men Type: ARTERIAL BLOOD SPECIMENOrdering Facility: [facility] Address: [address] [place] [address] Performed By: #### A LLBG ####[place] RESPIRATORYCLIA [id number] [facility]OS[facility] RESPIRAT[facility] [id number] [address] [address] O2 THERAPY RA=Room Air Normal [facility] Comment on above: Order Comment: Speci men Type: ARTERIAL BLOOD SPECIMENOrdering Facility: [facility] Address: [address] Performed By: #### A LLBG ####[place] [facility] [id number] [facility] RESPIRATORY [id number] [address] [address] Oxygen (Bld) [Partial pressure] 134 mm Hg High 85-95 [facility] Comment on above: Order Comment: Speci men Type: ARTERIAL BLOOD SPECIMENOrdering Facility: [facility] Address: [address] [place] [address] Performed By: #### A LLBG ####[place] [facility] [id number] [facility]OS[facility] RESPIRATORY [id number] [address] [address] Oxygen adjusted to patient's actual temperature (Bld) [Partial pressure] Normal [facility] Comment on above: Order Comment: Speci men Type: ARTERIAL BLOOD SPECIMENOrdering Facility: [facility] Address: [address] [place] [address] Performed By: #### A LLBG ####[place] RESPIRATORY[id number] HOSPITAL RESPIRATORY [id number] [address] [address] Oxyhemoglobin (BldA) [Mass fraction] 97 % Normal 95-98 [facility] Comment on above: Order Comment: Speci men Type: ARTERIAL BLOOD SPECIMENOrdering Facility: [facility] Address: [address] Performed By: #### A LLBG ####[place] [facility] [id number] [facility]OS[facility] RESPIRATORY [id number] [address] pH (Bld) 7.36 [pH] Normal 7.35-7.45 [facility] Comment on above: Order Comment: Speci men Type: ARTERIAL BLOOD SPECIMENOrdering Facility: [facility] Address: [address] Performed By: #### A LLBG ####[place] RESPIRATORYCLIA [id number] [facility] RESPIRAT[facility] [id number] [address] pH adjusted to patient's actual temperature (Bld) Normal [facility] Comment on above: Order Comment: Speci men Type: ARTERIAL BLOOD SPECIMENOrdering Facility: [facility] Address: [address] [place] [address] Performed By: #### A LLBG ####[place] RESPIRATORYCLIA [id number] [facility]OS[facility] RESPIRAT[facility] [id number] [address] Potassium [Moles/Vol] 3.8 mmol/L Normal 3.5-5.0 [facility] Comment on above: Order Comment: Speci men Type: ARTERIAL BLOOD SPECIMENOrdering Facility: [facility] Address: [address] [place] [address] Performed By: #### A LLBG ####[place] RESPIRATORYCLIA [id number] [facility]OS[facility] RESPIRATORY [id number] [address] [address] Bacteria Ur Culton 2 Bacteria identified Cx Nom (U) Normal [facility] Comment on above: Performed By: #### 6 30-4 ####[facility] LABCLIA [id number] [facility] [id number] [id number] [place] Basic metabolic 2000 panelon 04-25-2022 Anion gap [Moles/Vol] 13 mmol/L Normal 9-18 [facility] Comment on above: Order Comment: Speci men Type: BLOOD SPECIMENOrdering Facility: [facility] Address: [address] Performed By: #### 2 4321-2 ####[place] LABORATORYCLIA [id number] [place] [address] [place] Calcium [Mass/Vol] 8.5 mg/dL Normal 8.5-10.2 [facility] Comment on above: Order Comment: Speci men Type: BLOOD SPECIMENOrdering Facility: [facility] Address: [address] [place], [place] [address] Performed By: #### 2 4321-2 ####[facility] LABORATORYCLIA [id number] [place] [address] [place] Chloride [Moles/Vol] 107 mmol/L High 97-105 [facility] Comment on above: Order Comment: Speci men Type: BLOOD SPECIMENOrdering Facility: [facility] Address: [address] [place] [address] Performed By: #### 2 4321-2 ####[facility] LABORATORYCLIA [id number] [place] [address] [place] CO2 [Moles/Vol] 19 mmol/L Low 22-30 [facility] Comment on above: Order Comment: Speci men Type: BLOOD SPECIMENOrdering Facility: [facility] Address: [address] [place] [address] Performed By: #### 2 4321-2 ####[facility] LABORATORYCLIA [id number] [place] [address] [place] Creatinine [Mass/Vol] 0.44 mg/dL Low 0.58-0.96 [facility] Comment on above: Order Comment: Speci men Type: BLOOD SPECIMENOrdering Facility: [facility] Address: [address] [place] [address] Performed By: #### 2 4321-2 ####[facility]ORATORYCLIA [id number] [address] ESTIMATED GLOMERULAR FILTRATION RATE 140 mL/min/1.73m??? Normal >=60 [facility] Comment on above: Order Comment: Speci men Type: BLOOD SPECIMENOrdering Facility: [facility] Address: [address] [place] [address] Result Comment: Steffi mated Glomerular Filtration Rate (eGFR) is calculated using the 2020 CKD-EPI creatinine equation. This equation utilizes serum creatinine, sex, and age as parameters. The creatinine assay has traceable calibration to isotope dilution-mass spectrometry. Refer to KDIGO guidelines for clinical interpretation. In patients with unstable renal function, e.g. those with acute kidney injury, the eGFR may not accurately reflect actual GFR. Performed By: #### 2 4321-2 ####[facility] LABORATORYCLIA [id number] [place] [address] [place] Glucose [Mass/Vol] 150 mg/dL High 74-99 [facility] Comment on above: Order Comment: Reginald vieira Type: BLOOD SPECIMENOrdering Facility: [facility] Address: [address] [place] [address] Result Comment: The [place] Diabetes Association (ADA) provides guidance for cutoff values for fasting glucose and random glucose. The ADA defines fasting as no caloric intake for at least 8 hours. Fasting plasma glucose results between 100 to 125 mg/dL indicate increased risk for diabetes (prediabetes).Fasting plasma glucose results greater than or equal to 126 mg/dL meet the criteria for diagnosis of diabetes. In the absence of unequivocal hyperglycemia, results should be confirmed by repeat testing. In a patient with classic symptoms of hyperglycemia or hyperglycemic crisis, random plasma glucose results greater than or equal to 200 mg/dL meet the criteria for diagnosis of diabetes.Reference: Standards of Medical Care in Diabetes 2016, [place] [employer]. Diabetes Care. 2016.39(Suppl 1). Performed By: #### 2 4321-2 ####[place] LABORATORYCLIA [id number] [place] [address] [place] Potassium [Moles/Vol] 4.0 mmol/L Normal 3.7-5.1 [facility] Comment on above: Order Comment: Reginald vieira Type: BLOOD SPECIMENOrdering Facility: [facility] Address: [address] [place] [address] Performed By: #### 2 4321-2 ####[facility] LABORATORYCLIA [id number] [place] [address] [place] Sodium [Moles/Vol] 139 mmol/L Normal 136-144 [facility] Comment on above: Order Comment: Reginald vieira Type: BLOOD SPECIMENOrdering Facility: [facility] Address: [address] [place] [address] Performed By: #### 2 4321-2 ####[facility] LABORATORYCLIA [id number] [place] [address] [place] Urea nitrogen [Mass/Vol] 5 mg/dL Low 7-21 [facility] Comment on above: Order Comment: Speci men Type: BLOOD SPECIMENOrdering Facility: [facility] Address: [address] [place] [address] Performed By: #### 2 4321-2 ####[facility] LABORATORYCLIA [id number] [address] [place] Anion gap [Moles/Vol] 14 mmol/L Normal 9-18 [facility] Comment on above: Order Comment: Speci men Type: BLOOD SPECIMENOrdering Facility: [facility] Address: [address] [place] [address] Performed By: #### 2 4321-2 ####[facility] LABORATORYCLIA [id number] [place] [address] [place] Calcium [Mass/Vol] 8.4 mg/dL Low 8.5-10.2 [facility] Comment on above: Order Comment: Speci men Type: BLOOD SPECIMENOrdering Facility: [facility] Address: [address] [place] [address] Performed By: #### 2 4321-2 ####[facility] LABORATORYCLIA [id number] [place] [address] [place] Chloride [Moles/Vol] 106 mmol/L High 97-105 [facility] Comment on above: Order Comment: Speci men Type: BLOOD SPECIMENOrdering Facility: [facility] Address: [address] [place] [address] Performed By: #### 2 4321-2 ####[facility] LABORATORYCLIA [id number] [place] [address] [place] CO2 [Moles/Vol] 18 mmol/L Low 22-30 [facility] Comment on above: Order Comment: Speci men Type: BLOOD SPECIMENOrdering Facility: [facility] Address: [address] [place] [address] Performed By: #### 2 4321-2 ####[facility] LABORATORYCLIA [id number] [place] [address] [place] Creatinine [Mass/Vol] 0.49 mg/dL Low 0.58-0.96 [facility] Comment on above: Order Comment: Reginald dariel Type: BLOOD SPECIMENOrdering Facility: [facility] Address: [address] [place] [address] Performed By: #### 2 4321-2 ####[place] LABORATORYCLIA [id number] [place] [address] [place] ESTIMATED GLOMERULAR FILTRATION RATE 136 mL/min/1.73m??? Normal >=60 [facility] Comment on above: Order Comment: Reginald dariel Type: BLOOD SPECIMENOrdering Facility: [facility] Address: [address] [place] [address] Result Comment: Steffi mated Glomerular Filtration Rate (eGFR) is calculated using the 2020 CKD-EPI creatinine equation. This equation utilizes serum creatinine, sex, and age as parameters. The creatinine assay has traceable calibration to isotope dilution-mass spectrometry. Refer to KDIGO guidelines for clinical interpretation. In patients with unstable renal function, e.g. those with acute kidney injury, the eGFR may not accurately reflect actual GFR. Performed By: #### 2 4321-2 ####[facility] [place] LABORATORYCLIA [id number] [place] [address] [place] Glucose [Mass/Vol] 142 mg/dL High 74-99 [facility] Comment on above: Order Comment: Keyurvandana vieira Type: BLOOD SPECIMENOrdering Facility: [facility] Address: [address] [place] [address] Result Comment: The [place] Diabetes Association (ADA) provides guidance for cutoff values for fasting glucose and random glucose. The ADA defines fasting as no caloric intake for at least 8 hours. Fasting plasma glucose results between 100 to 125 mg/dL indicate increased risk for diabetes (prediabetes).Fasting plasma glucose results greater than or equal to 126 mg/dL meet the criteria for diagnosis of diabetes. In the absence of unequivocal hyperglycemia, results should be confirmed by repeat testing. In a patient with classic symptoms of hyperglycemia or hyperglycemic crisis, random plasma glucose results greater than or equal to 200 mg/dL meet the criteria for diagnosis of diabetes.Reference: Standards of Medical Care in Diabetes 2016, [place] [employer]. Diabetes Care. 2016.39(Suppl 1). Performed By: #### 2 4321-2 ####[facility] LABORATORYCLIA [id number] [address] [place] Potassium [Moles/Vol] 4.3 mmol/L Normal 3.7-5.1 [facility] Comment on above: Order Comment: Speci men Type: BLOOD SPECIMENOrdering Facility: [facility] Address: [address] [address] Performed By: #### 2 4321-2 ####[facility] LABORATORYCLIA [id number] [place] [address] [place] Sodium [Moles/Vol] 138 mmol/L Normal 136-144 [facility] Comment on above: Order Comment: Speci men Type: BLOOD SPECIMENOrdering Facility: [facility] Address: [address] [place] [address] Performed By: #### 2 4321-2 ####[facility] LABORATORYCLIA [id number] [place] [address] [place] Urea nitrogen [Mass/Vol] 6 mg/dL Low 7-21 [facility] Comment on above: Order Comment: Speci men Type: BLOOD SPECIMENOrdering Facility: [facility] Address: [address] [place] [address] Performed By: #### 2 4321-2 ####[facility] LABORATORYCLIA [id number] [address] [place] Anion gap [Moles/Vol] 21 mmol/L High 9-18 [facility] Comment on above: Order Comment: Speci men Type: BLOOD SPECIMENOrdering Facility: [facility] Address: [address] [address] Performed By: #### 2 4321-2 ####[facility] LABORATORYCLIA [id number] [place] [address] [place] Calcium [Mass/Vol] 9.2 mg/dL Normal 8.5-10.2 [facility] Comment on above: Order Comment: Speci men Type: BLOOD SPECIMENOrdering Facility: [facility] Address: [address] [address] Performed By: #### 2 4321-2 ####[facility] LABORATORYCLIA [id number] [address] Chloride [Moles/Vol] 104 mmol/L Normal 97-105 [facility] Comment on above: Order Comment: Speci men Type: BLOOD SPECIMENOrdering Facility: [facility] Address: [address] [place] [address] Performed By: #### 2 4321-2 ####[facility] LABORATORYCLIA [id number] [address] [place] CO2 [Moles/Vol] 15 mmol/L Low 22-30 [facility] Comment on above: Order Comment: Speci men Type: BLOOD SPECIMENOrdering Facility: [facility] Address: [address] [place] [address] Performed By: #### 2 4321-2 ####[facility] LABORATORYCLIA [id number] [address] Creatinine [Mass/Vol] 0.55 mg/dL Low 0.58-0.96 [facility] Comment on above: Order Comment: Speci men Type: BLOOD SPECIMENOrdering Facility: [facility] Address: [address] [place] [address] Performed By: #### 2 4321-2 ####[facility] LABORATORYCLIA [id number] [address] ESTIMATED GLOMERULAR FILTRATION RATE 132 mL/min/1.73m??? Normal >=60 [facility] Comment on above: Order Comment: Speci men Type: BLOOD SPECIMENOrdering Facility: [facility] Address: [address] [place] [address] Result Comment: Steffi mated Glomerular Filtration Rate (eGFR) is calculated using the 2020 CKD-EPI creatinine equation. This equation utilizes serum creatinine, sex, and age as parameters. The creatinine assay has traceable calibration to isotope dilution-mass spectrometry. Refer to KDIGO guidelines for clinical interpretation. In patients with unstable renal function, e.g. those with acute kidney injury, the eGFR may not accurately reflect actual GFR. Performed By: #### 2 4321-2 ####[facility] LABORATORYCLIA [id number] [place] [address] [place] Glucose [Mass/Vol] 131 mg/dL High 74-99 [facility] Comment on above: Order Comment: Reginald dariel Type: BLOOD SPECIMENOrdering Facility: [facility] Address: [address] [place] [address] Result Comment: The [place] Diabetes Association (ADA) provides guidance for cutoff values for fasting glucose and random glucose. The ADA defines fasting as no caloric intake for at least 8 hours. Fasting plasma glucose results between 100 to 125 mg/dL indicate increased risk for diabetes (prediabetes).Fasting plasma glucose results greater than or equal to 126 mg/dL meet the criteria for diagnosis of diabetes. In the absence of unequivocal hyperglycemia, results should be confirmed by repeat testing. In a patient with classic symptoms of hyperglycemia or hyperglycemic crisis, random plasma glucose results greater than or equal to 200 mg/dL meet the criteria for diagnosis of diabetes.Reference: Standards of Medical Care in Diabetes 2016, [place] [employer]. Diabetes Care. 2016.39(Suppl 1). Performed By: #### 2 4321-2 ####[facility] LABORATORYCLIA [id number] [place] [address] [place] Potassium [Moles/Vol] 4.0 mmol/L Normal 3.7-5.1 [facility] Comment on above: Order Comment: Reginald vieira Type: BLOOD SPECIMENOrdering Facility: [facility] Address: [address] [place] [address] Performed By: #### 2 4321-2 ####[facility] LABORATORYCLIA [id number] [place] [address] [place] Sodium [Moles/Vol] 140 mmol/L Normal 136-144 [facility] Comment on above: Order Comment: Reginald men Type: BLOOD SPECIMENOrdering Facility: [facility] Address: [address] [place] [address] Performed By: #### 2 4321-2 ####[facility] LABORATORYCLIA [id number] [place] [address] [place] Urea nitrogen [Mass/Vol] 6 mg/dL Low 7-21 [facility] Comment on above: Order Comment: Keyuri men Type: BLOOD SPECIMENOrdering Facility: [facility] Address: [address] [address] Performed By: #### 2 4321-2 ####[facility] LABORATORYCLIA [id number] [place] [address] [place] Anion gap [Moles/Vol] 30 mmol/L High 9-18 [facility] Comment on above: Order Comment: Speci men Type: BLOOD SPECIMENOrdering Facility: [facility] Address: [address] [place] [address] Performed By: #### 2 4321-2, CHRISTOS ####[facility] LABORATORYCLIA [id number] [place] [address] [place] Calcium [Mass/Vol] 9.4 mg/dL Normal 8.5-10.2 [facility] Comment on above: Order Comment: Speci men Type: BLOOD SPECIMENOrdering Facility: [facility] Address: [address] [place] [address] Performed By: #### 2 4321-2, CHRISTOS ####[facility] LABORATORYCLIA [id number] [place] [address] [place] Chloride [Moles/Vol] 102 mmol/L Normal 97-105 [facility] Comment on above: Order Comment: Speci men Type: BLOOD SPECIMENOrdering Facility: [facility] Address: [address] [place] [address] Performed By: #### 2 4321-2, CHRISTOS ####[facility] LABORATORYCLIA [id number] [place] [address] [place] CO2 [Moles/Vol] 8 mmol/L Low 22-30 [facility] Comment on above: Order Comment: Speci men Type: BLOOD SPECIMENOrdering Facility: [facility] Address: [address] [place] [address] Performed By: #### 2 4321-2, CHRISTOS ####[facility] LABORATORYCLIA [id number] [place] [address] [place] Creatinine [Mass/Vol] 0.65 mg/dL Normal 0.58-0.96 [facility] Comment on above: Order Comment: Speci men Type: BLOOD SPECIMENOrdering Facility: [facility] Address: [address] [place] [address] Performed By: #### 2 4321-2, CHRISTOS ####[facility] LABORATORYCLIA [id number] [address] [place] [facility] ESTIMATED GLOMERULAR FILTRATION RATE 127 mL/min/1.73m??? Normal >=60 [facility] Comment on above: Order Comment: Reginald dariel Type: BLOOD SPECIMENOrdering Facility: [facility] Address: [address] [place] [address] Result Comment: Steffi mated Glomerular Filtration Rate (eGFR) is calculated using the 2020 CKD-EPI creatinine equation. This equation utilizes serum creatinine, sex, and age as parameters. The creatinine assay has traceable calibration to isotope dilution-mass spectrometry. Refer to KDIGO guidelines for clinical interpretation. In patients with unstable renal function, e.g. those with acute kidney injury, the eGFR may not accurately reflect actual GFR. Performed By: #### 2 4321-2, CHRISTOS ####[facility] LABORATORYCLIA [id number] [place] [address] [place] Glucose [Mass/Vol] 476 mg/dL High 74-99 [facility] Comment on above: Order Comment: Keyurvandana dariel Type: BLOOD SPECIMENOrdering Facility: [facility] Address: [address] [place] [address] Result Comment: The [place] Diabetes Association (ADA) provides guidance for cutoff values for fasting glucose and random glucose. The ADA defines fasting as no caloric intake for at least 8 hours. Fasting plasma glucose results between 100 to 125 mg/dL indicate increased risk for diabetes (prediabetes).Fasting plasma glucose results greater than or equal to 126 mg/dL meet the criteria for diagnosis of diabetes. In the absence of unequivocal hyperglycemia, results should be confirmed by repeat testing. In a patient with classic symptoms of hyperglycemia or hyperglycemic crisis, random plasma glucose results greater than or equal to 200 mg/dL meet the criteria for diagnosis of diabetes.Reference: Standards of Medical Care in Diabetes 2016, [place] [employer]. Diabetes Care. 2016.39(Suppl 1). Performed By: #### 2 4321-2, CHRISTOS ####[facility] LABORATORYCLIA [id number] [place] [address] [place] Potassium [Moles/Vol] 4.0 mmol/L Normal 3.7-5.1 [facility] Comment on above: Order Comment: Speci men Type: BLOOD SPECIMENOrdering Facility: [facility] Address: [address] [place] [address] Performed By: #### 2 4321-2, CHRISTOS ####[facility] LABORATORYCLIA [id number] [place] [address] [place] Sodium [Moles/Vol] 140 mmol/L Normal 136-144 [facility] Comment on above: Order Comment: Speci men Type: BLOOD SPECIMENOrdering Facility: [facility] Address: [address] [place] [address] Performed By: #### 2 4321-2, CHRISTOS ####[facility] LABORATORYCLIA [id number] [place] [address] [place] Urea nitrogen [Mass/Vol] 8 mg/dL Normal 7-21 [facility] Comment on above: Order Comment: Speci men Type: BLOOD SPECIMENOrdering Facility: [facility] Address: [address] [place] [address] Performed By: #### 2 4321-2, CHRISTOS ####[facility] LABORATORYCLIA [id number] [address] [place] CASE MGT INIT ASSESon 2021 [facility] CBC panel Auto (Bld)on 04-25 Erythrocyte distribution width (RBC) [Ratio] 12.7 % Normal 11.5-15.0 [facility] Comment on above: Order Comment: Speci men Type: BLOOD SPECIMENOrdering Facility: [facility] Address: [address] [place] [address] Performed By: #### 5 8410-2 ####[facility] LABORATORYCLIA [id number] [place] [address] [place] Hematocrit (Bld) [Volume fraction] 37.3 % Normal 36.0-46.0 [facility] Comment on above: Order Comment: Speci men Type: BLOOD SPECIMENOrdering Facility: [facility] Address: [address] [place] [address] Performed By: #### 5 8410-2 ####[facility] LABORATORYCLIA [id number] [address] Hemoglobin (Bld) [Mass/Vol] 12.3 g/dL Normal 11.5-15.5 [facility] Comment on above: Order Comment: Speci men Type: BLOOD SPECIMENOrdering Facility: [facility] Address: [address] [place] [address] Performed By: #### 5 8410-2 ####[facility] LABORATORYCLIA [id number] [address] MCH (RBC) [Entitic mass] 29.9 pg Normal 26.0-34.0 [facility] Comment on above: Order Comment: Speci men Type: BLOOD SPECIMENOrdering Facility: [facility] Address: [address] [place] [address] Performed By: #### 5 8410-2 ####[facility] LABORATORYCLIA [id number] [address] MCHC (RBC) [Mass/Vol] 33.0 g/dL Normal 30.5-36.0 [facility] Comment on above: Order Comment: Speci men Type: BLOOD SPECIMENOrdering Facility: [facility] Address: [address] [place] [address] Performed By: #### 5 8410-2 ####[facility] LABORATORYCLIA [id number] [address] MCV (RBC) [Entitic vol] 90.8 fL Normal 80.0-100.0 [facility] Comment on above: Order Comment: Speci men Type: BLOOD SPECIMENOrdering Facility: [facility] Address: [address] [place] [address] Performed By: #### 5 8410-2 ####[facility] LABORATORYCLIA [id number] [address] Nucleated RBC (Bld) [#/Vol] 10*3/uL Normal <0.01 [facility] Comment on above: Order Comment: Speci men Type: BLOOD SPECIMENOrdering Facility: [facility] Address: [facility] [address] Performed By: #### 5 8410-2 ####[facility] LABORATORYCLIA [id number] [place] [address] [place] Platelet mean volume (Bld) [Entitic vol] 9.1 fL Normal 9.0-12.7 [facility] Comment on above: Order Comment: Speci men Type: BLOOD SPECIMENOrdering Facility: [facility] Address: [address] [place], [place] [id number] Performed By: #### 5 8410-2 ####[facility] LABORATORYCLIA [id number] [place] [address] [place] Platelets (Bld) [#/Vol] 355 10*3/uL Normal 150-400 [facility] Comment on above: Order Comment: Speci men Type: BLOOD SPECIMENOrdering Facility: [facility] Address: [address] [place], [place] [id number] Performed By: #### 5 8410-2 ####[facility] LABORATORYCLIA [id number] [place] [address] [place] RBC (Bld) [#/Vol] 4.11 10*6/uL Normal 3.90-5.20 [facility] Comment on above: Order Comment: Speci men Type: BLOOD SPECIMENOrdering Facility: [facility] Address: [address] [place], [place] [id number] Performed By: #### 5 8410-2 ####[facility] LABORATORYCLIA [id number] [place] [address] [place] WBC (Bld) [#/Vol] 9.16 10*3/uL Normal 3.70-11.00 [facility] Comment on above: Order Comment: Speci men Type: BLOOD SPECIMENOrdering Facility: [facility] Address: [address] [place], [place] [id number] Performed By: #### 5 8410-2 ####[facility] LABORATORYCLIA [id number] [place] [address] [place] CONSULTon 04-25-2022 CONSULT Normal [facility] CONSULT Normal [facility] CONSULT Normal [facility] Comprehensive metabolic 2000 panelon 04-25-2022 Albumin [Mass/Vol] 3.5 g/dL Low 3.9-4.9 [facility] Comment on above: Order Comment: Speci men Type: BLOOD SPECIMENOrdering Facility: [facility] Address: [address] [place] [address] Performed By: #### 3 016-3, 22620-2, CHRISTOS ####[facility] LABORATORYCLIA [id number] [place] [address] [place] ALP [Catalytic activity/Vol] 154 U/L High 34-123 [facility] Comment on above: Order Comment: Speci men Type: BLOOD SPECIMENOrdering Facility: [facility] Address: [address] [place] [address] Performed By: #### 3 016-3, 79373-8, CHRISTOS ####[facility] LABORATORYCLIA [id number] [place] [address] [place] ALT [Catalytic activity/Vol] 9 U/L Normal 7-38 [facility] Comment on above: Order Comment: Speci men Type: BLOOD SPECIMENOrdering Facility: [facility] Address: [address] [place] [address] Performed By: #### 3 016-3, 49675-4, CHRISTOS ####[facility] LABORATORYCLIA [id number] [place] [address] [place] [facility] Anion gap [Moles/Vol] 25 mmol/L High 9-18 [facility] Comment on above: Order Comment: Speci men Type: BLOOD SPECIMENOrdering Facility: [facility] Address: [address] [place] [address] Performed By: #### 3 016-3, 59471-3, CHRISTOS ####[facility] LABORATORYCLIA [id number] [place] [address] [place] AST [Catalytic activity/Vol] 11 U/L Low 13-35 [facility] Comment on above: Order Comment: Speci men Type: BLOOD SPECIMENOrdering Facility: [facility] Address: [address] [place] [address] Performed By: #### 3 016-3, , CHRISTOS ####[facility] LABORATORYCLIA [id number] [place] [address] [place] Bilirubin [Mass/Vol] 0.2 mg/dL Normal 0.2-1.3 [facility] Comment on above: Order Comment: Speci men Type: BLOOD SPECIMENOrdering Facility: [facility] Address: [address] [place] [address] Performed By: #### 3 016-3, , CHRISTOS ####[facility] LABORATORYCLIA [id number] [place] [address] [place] Calcium [Mass/Vol] 9.0 mg/dL Normal 8.5-10.2 [facility] Comment on above: Order Comment: Speci men Type: BLOOD SPECIMENOrdering Facility: [facility] Address: [address] [place] [address] Performed By: #### 3 016-3, , CHRISTOS ####[facility] LABORATORYCLIA [id number] [place] [address] [place] Chloride [Moles/Vol] 103 mmol/L Normal 97-105 [facility] Comment on above: Order Comment: Speci men Type: BLOOD SPECIMENOrdering Facility: [facility] Address: [address] [place] [address] Performed By: #### 3 016-3, , CHRISTOS ####[facility] LABORATORYCLIA [id number] [place] [address] [place] CO2 [Moles/Vol] 11 mmol/L Low 22-30 [facility] Comment on above: Order Comment: Speci men Type: BLOOD SPECIMENOrdering Facility: [facility] Address: [address] [place] [address] Performed By: #### 3 016-3, , CHRISTOS ####[facility] LABORATORYCLIA [id number] [address] STATES OF [facility] Creatinine [Mass/Vol] 0.61 mg/dL Normal 0.58-0.96 [facility] Comment on above: Order Comment: Reginald vieira Type: BLOOD SPECIMENOrdering Facility: [facility] Address: [address] [address] Performed By: #### 3 016-3, 71500-7, CHRISTOS ####[facility] LABORATORYCLIA [id number] [address] ESTIMATED GLOMERULAR FILTRATION RATE 129 mL/min/1.73m??? Normal >=60 [facility] Comment on above: Order Comment: Reginald vieira Type: BLOOD SPECIMENOrdering Facility: [facility] Address: [address] [place] [address] Result Comment: Steffi mated Glomerular Filtration Rate (eGFR) is calculated using the 2020 CKD-EPI creatinine equation. This equation utilizes serum creatinine, sex, and age as parameters. The creatinine assay has traceable calibration to isotope dilution-mass spectrometry. Refer to KDIGO guidelines for clinical interpretation. In patients with unstable renal function, e.g. those with acute kidney injury, the eGFR may not accurately reflect actual GFR. Performed By: #### 3 016-3, 89055-1, CHRISTOS ####[facility] LABORATORYCLIA [id number] [address] STATES [facility] Glucose [Mass/Vol] 326 mg/dL High 74-99 [facility] Comment on above: Order Comment: Reginald vieira Type: BLOOD SPECIMENOrdering Facility: [facility] Address: [address] [place] [address] Result Comment: The [place] [employer] (ADA) provides guidance for cutoff values for fasting glucose and random glucose. The ADA defines fasting as no caloric intake for at least 8 hours. Fasting plasma glucose results between 100 to 125 mg/dL indicate increased risk for diabetes (prediabetes).Fasting plasma glucose results greater than or equal to 126 mg/dL meet the criteria for diagnosis of diabetes. In the absence of unequivocal hyperglycemia, results should be confirmed by repeat testing. In a patient with classic symptoms of hyperglycemia or hyperglycemic crisis, random plasma glucose results greater than or equal to 200 mg/dL meet the criteria for diagnosis of diabetes.Reference: Standards of Medical Care in Diabetes 2016, [place] [employer]. Diabetes Care. 2016.39(Suppl 1). Performed By: #### 3 016-3, 81607-6, CHRISTOS ####[facility]OTTRE[facility] LABORATORYCLIA [id number] [address] [place] [facility] Potassium [Moles/Vol] 3.6 mmol/L Low 3.7-5.1 [facility] Comment on above: Order Comment: Speci men Type: BLOOD SPECIMENOrdering Facility: [facility] Address: [address] [place] [address] Performed By: #### 3 016-3, 05937-9, CHRISTOS ####[facility] LABORATORYCLIA [id number] [address] [place] Protein [Mass/Vol] 6.5 g/dL Normal 6.3-8.0 [facility] Comment on above: Order Comment: Speci men Type: BLOOD SPECIMENOrdering Facility: [facility] Address: [address] [place] [address] Performed By: #### 3 016-3, , CHRISTOS ####[facility] LABORATORYCLIA [id number] [address] Sodium [Moles/Vol] 139 mmol/L Normal 136-144 [facility] Comment on above: Order Comment: Speci men Type: BLOOD SPECIMENOrdering Facility: [facility] Address: [address] [place] [address] Performed By: #### 3 016-3, , CHRISTOS ####[facility] LABORATORYCLIA [id number] [address] [place] Urea nitrogen [Mass/Vol] 8 mg/dL Normal 7-21 [facility] Comment on above: Order Comment: Speci men Type: BLOOD SPECIMENOrdering Facility: [facility] Address: [address] [place] [address] Performed By: #### 3 016-3, 07225-5, CHRISTOS ####[facility] LABORATORYCLIA [id number] [place] [address] [place] GGT SerPl-cCncon 04-25-2022 Gamma glutamyl transferase [Catalytic activity/Vol] 31 U/L Normal 6-46 [facility] Comment on above: Order Comment: Speci men Type: BLOOD SPECIMENOrdering Facility: [facility] Address: [address] [place] [address] Performed By: #### 2 324-2, 6768-6 ####[facility] LABCLIA [id number] [facility]ENTERDESK [id number] [place] HCG Preg Ur Qlon 04-25-2022 HCG ( test) Ql (U) Negative Normal Negative [facility] Comment on above: Order Comment: Speci men Type: URINE SPECIMENOrdering Facility: [facility] Address: [address] [place] [address] Result Comment: This test is intended to aid in the early detection of . Very dilute urine samples, as indicated by a low specific gravity, may not contain pharmacy sales representative levels of hCG. This test detects intact hCG only. This test does not reliably detect hCG degradation products, including free-beta subunit and beta-core fragment. Therefore, this test may show reduced reactivity in urine after 8 weeks gestation. A number of conditions other than , including trophoblastic disease and certain non-trophoblastic neoplasms cause elevated levels of hCG. As with any assay employing mouse antibodies, the possibility exists for interference by human anti-mouse antibodies (HAMA) in the specimen. The test provides a presumptive diagnosis for . Performed By: #### 2 106-3 ####[place] [facility]ORATORYCLIA [id number] [place] [id number] [place] Lactate (Bld) [Moles/Vol]on 04-25-2022 Lactate [Moles/Vol] 1.3 mmol/L Normal 0.5-2.2 [facility] Comment on above: Order Comment: Speci men Type: BLOOD SPECIMENOrdering Facility: [facility] Address: [address] [place] [address] Performed By: #### 3 2693-4 ####[facility] [place] [facility]ORATORYCLIA [id number] [place] [address] [place] NURSING PROGon 04-25-2022 NURSING PROG Normal [facility] NUTRITIONon 04-25-2022 NUTRITION Normal [facility] TOX SCREEN ROUT URon 022 Amphetamines Confirm (U) [Mass/Vol] Negative Normal Negative [facility] Comment on above: Order Comment: Speci men Type: URINE SPECIMENOrdering Facility: [facility] Address: [address] [place] [address] Result Comment: Cuto ff threshold at 1000 ng/mL. Performed By: #### U TOX2 ####[facility] LABORATORYCLIA [id number] [address] [place] BARBITURATES, URINE Negative Normal Negative [facility] Comment on above: Order Comment: Speci men Type: URINE SPECIMENOrdering Facility: [facility] Address: [address] [place] [address] Result Comment: Cuto ff threshold at 200 ng/mL. Performed By: #### U TOX2 ####[facility] LABORATORYCLIA [id number] [place] [address] [place] BENZODIAZEPINES, UR Negative Normal Negative [facility] Comment on above: Order Comment: Speci men Type: URINE SPECIMENOrdering Facility: [facility] Address: [address] [place] [address] Result Comment: Cuto ff threshold at 200 ng/mL. Performed By: #### U TOX2 ####[facility] LABORATORYCLIA [id number] [place] [address] [place] CANNABINOIDS,URINE Negative Normal Negative [facility] Comment on above: Order Comment: Speci men Type: URINE SPECIMENOrdering Facility: [facility] Address: [address] [place] [address] Result Comment: Cuto ff threshold at 50 ng/mL. Performed By: #### U TOX2 ####[facility] LABORATORYCLIA [id number] [place] [address] [place] Cocaine Ql (U) Negative Normal Negative [facility] Comment on above: Order Comment: Speci men Type: URINE SPECIMENOrdering Facility: [facility] Address: [address], [place] [address] Result Comment: Cuto ff threshold at 300 ng/mL. Performed By: #### U TOX2 ####[facility] LABORATORYCLIA [id number] [address] [place] Ethanol (U) [Mass/Vol] <11 Normal <11 [facility] Comment on above: Order Comment: Speci men Type: URINE SPECIMENOrdering Facility: [facility] Address: [address] [place] [address] Performed By: #### U TOX2 ####[facility] LABORATORYCLIA [id number] [address] [place] Opiates Screen Ql (U) Negative Normal Negative [facility] Comment on above: Order Comment: Speci men Type: URINE SPECIMENOrdering Facility: [facility] Address: [address] [place] [address] Result Comment: Cuto ff threshold at 300 ng/mL. Performed By: #### U TOX2 ####[facility] LABORATORYCLIA [id number] [address] oxyCODONE cutoff Screen (U) [Mass/Vol] Negative Normal Negative [facility] Comment on above: Order Comment: Speci men Type: URINE SPECIMENOrdering Facility: [facility] Address: [address] [place] [address] Result Comment: Cuto ff threshold at 100 ng/mL. Performed By: #### U TOX2 ####[facility] LABORATORYCLIA [id number] [address] Phencyclidine Ql (U) Negative Normal Negative [facility] Comment on above: Order Comment: Speci men Type: URINE SPECIMENOrdering Facility: [facility] Address: [address] [place] [address] Result Comment: Cuto ff threshold at 25 ng/mL. Performed By: #### U TOX2 ####[facility] LABORATORYCLIA [id number] [address] [place] TROPONIN Ton 04-25-2022 Troponin T.cardiac [Mass/Vol] ug/L Normal 0.000-0.029 [facility] Comment on above: Order Comment: Speci men Type: BLOOD SPECIMENOrdering Facility: [facility] Address: [address] [place] [address] Performed By: #### 2 4321-2, CHRISTOS ####[facility] LABORATORYCLIA [id number] [address] [place] Troponin T.cardiac [Mass/Vol] ug/L Normal 0.000-0.029 [facility] Comment on above: Order Comment: Speci men Type: BLOOD SPECIMENOrdering Facility: [facility] Address: [address] [place] [address] Performed By: #### 3 016-3, 28013-5, CHRISTOS ####[facility] LABORATORYCLIA [id number] [place] [address] [place] TSH SerPl-aCncon 04-25-2022 TSH Qn 0.339 m[IU]/L Normal 0.270-4.200 [facility] Comment on above: Order Comment: Speci men Type: BLOOD SPECIMENOrdering Facility: [facility] Address: [address] [place] [address] Result Comment: If t he patient is , TSH reference range varies by gestational period:First Trimester (weeks 9-12): 0.180-2.990 mIU/LSecond Trimester: 0.110-3.980 mIU/LThird Trimester: 0.480-4.710 mIU/Charan Rodriguez, et al. A Practical Approach for the Verifications and Determination of Site- and Trimester-Specific Reference Intervals for Thyroid Function tests in . Thyroid, 2019:29:3:412-420. Pawan Coughlin, et al. 2017 Guidelines of the [place] [employer] for the Diagnosis and Management of Thyroid Disease during and the . Thyroid, 2017:27:3:315-389. Performed By: #### 3 016-3, 71654-7, CHRISTOS ####[facility] LABORATORYCLIA [id number] [place] [address] [place] URINALYSIS, REFLEX MICROSCOP ICon 04-25-2022 Bilirubin Ql (U) Negative Normal Negative [facility] Comment on above: Order Comment: Speci men Type: URINE SPECIMENOrdering Facility: [facility] Address: [address] [place] [address] Performed By: #### L [id number] ####[facility] LABORATORYCLIA [id number] [address] [place] Clarity (Unsp spec) Clear Normal Clear [facility] Comment on above: Order Comment: Speci men Type: URINE SPECIMENOrdering Facility: [facility] Address: [address] [place] [address] Performed By: #### L [id number] ####[facility] LABORATORYCLIA [id number] [place] [address] [facility] [place] Color (U) Yellow Normal Yellow [facility] Comment on above: Order Comment: Speci men Type: URINE SPECIMENOrdering Facility: [facility] Address: [address] [place] [address] Performed By: #### L [id number] ####[facility] LABORATORYCLIA [id number] [address] [place] Glucose Test strip (U) [Mass/Vol] 3+ Abnormal Negative [facility] Comment on above: Order Comment: Speci men Type: URINE SPECIMENOrdering Facility: [facility] Address: [address] [place] [address] Performed By: #### L [id number] ####[facility] LABORATORYCLIA [id number] [address] [place] Hemoglobin Ql (U) Negative Normal Negative [facility] Comment on above: Order Comment: Speci men Type: URINE SPECIMENOrdering Facility: [facility] Address: [address] [place] [address] Performed By: #### L [id number] ####[facility] LABORATORYCLIA [id number] [address] Ketones Ql (U) 3+ Abnormal Negative [facility] Comment on above: Order Comment: Speci men Type: URINE SPECIMENOrdering Facility: [facility] Address: [address] [place] [address] Performed By: #### L [id number] ####[facility] LABORATORYCLIA [id number] [address] Leukocyte esterase Test strip Ql (U) Negative Normal Negative [facility] Comment on above: Order Comment: Speci men Type: URINE SPECIMENOrdering Facility: [facility] Address: [address] [place] [address] Performed By: #### L [id number] ####[facility] LABORATORYCLIA [id number] [place] [address] [place] Nitrite Ql (U) Negative Normal Negative [facility] Comment on above: Order Comment: Speci men Type: URINE SPECIMENOrdering Facility: [facility] Address: [address] [place] [address] Performed By: #### L [id number] ####[facility] LABORATORYCLIA [id number] [address] [place] pH (U) 6.0 [pH] Normal 5.0-8.0 [facility] Comment on above: Order Comment: Speci men Type: URINE SPECIMENOrdering Facility: [facility] Address: [address] [place] [address] Performed By: #### L [id number] ####[facility] LABORATORYCLIA [id number] [address] [place] Protein (U) [Mass/Vol] Negative Normal Negative [facility] Comment on above: Order Comment: Speci men Type: URINE SPECIMENOrdering Facility: [facility] Address: [address] [place] [address] Performed By: #### L [id number] ####[facility] LABORATORYCLIA [id number] [address] [place] Specific gravity (U) [Rel density] 1.015 Normal 1.005-1.030 [facility] Comment on above: Order Comment: Speci men Type: URINE SPECIMENOrdering Facility: [facility] Address: [address] [place] [address] Performed By: #### L [id number] ####[facility] LABORATORYCLIA [id number] [place] [address] [place] Urobilinogen Ql (U) 0.2 EU/dL Normal 0.2-1.0 EU/dL [facility] Comment on above: Order Comment: Speci men Type: URINE SPECIMENOrdering Facility: [facility] Address: [address] [place] [address] Performed By: #### L [id number] ####[facility] LABORATORYCLIA [id number] [address] Bacteria LM.HPF (Urine sed) [#/Area] Few Abnormal None Seen [facility] Comment on above: Order Comment: Speci men Type: URINE SPECIMENOrdering Facility: [facility] Address: [address] [place] [address] Performed By: #### L [id number] ####[facility] LABORATORYCLIA [id number] [address] Bilirubin Ql (U) 1+ Abnormal Negative [facility] Comment on above: Order Comment: Speci men Type: URINE SPECIMENOrdering Facility: [facility] Address: [address] [place] [address] Result Comment: Sugg est correlation with clinical findings and serum bilirubin if clinically indicated. Performed By: #### L [id number] ####[facility] LABORATORYCLIA [id number] [address] Clarity (Unsp spec) Clear Normal Clear [facility] Comment on above: Order Comment: Speci men Type: URINE SPECIMENOrdering Facility: [facility] Address: [address] [place] [address] Performed By: #### L [id number] ####[facility] LABORATORYCLIA [id number] [address] Color (U) Yellow Normal Yellow [facility] Comment on above: Order Comment: Speci men Type: URINE SPECIMENOrdering Facility: [facility] Address: [address] [place] [address] Performed By: #### L [id number] ####[facility] LABORATORYCLIA [id number] [address] Epithelial cells LM.HPF (Urine sed) [#/Area] Few Normal [facility] Comment on above: Order Comment: Speci men Type: URINE SPECIMENOrdering Facility: [facility] Address: [address] [place] [address] Performed By: #### L [id number] ####[facility] LABORATORYCLIA [id number] [address] [place] Glucose Test strip (U) [Mass/Vol] 3+ Abnormal Negative [facility] Comment on above: Order Comment: Speci men Type: URINE SPECIMENOrdering Facility: [facility] Address: [address] [place] [address] Performed By: #### L [id number] ####[facility] LABORATORYCLIA [id number] [address] [place] [facility] Hemoglobin Ql (U) Negative Normal Negative [facility] Comment on above: Order Comment: Speci men Type: URINE SPECIMENOrdering Facility: [facility] Address: [address] [place] [address] Performed By: #### L [id number] ####[facility] LABORATORYCLIA [id number] [address] [place] Ketones Ql (U) 3+ Abnormal Negative [facility] Comment on above: Order Comment: Speci men Type: URINE SPECIMENOrdering Facility: [facility] Address: [address] [place] [address] Performed By: #### L [id number] ####[facility] LABORATORYCLIA [id number] [address] Leukocyte esterase Test strip Ql (U) 1+ Abnormal Negative [facility] Comment on above: Order Comment: Speci men Type: URINE SPECIMENOrdering Facility: [facility] Address: [address] [place] [address] Performed By: #### L [id number] ####[facility] LABORATORYCLIA [id number] [place] [address] [place] Nitrite Ql (U) Negative Normal Negative [facility] Comment on above: Order Comment: Speci men Type: URINE SPECIMENOrdering Facility: [facility] Address: [address] [place] [address] Performed By: #### L [id number] ####[facility] LABORATORYCLIA [id number] [address] pH (U) 6.0 [pH] Normal 5.0-8.0 [facility] Comment on above: Order Comment: Speci men Type: URINE SPECIMENOrdering Facility: [facility] Address: [address] [place] [address] Performed By: #### L [id number] ####[place] [facility]ORATORYCLIA [id number] [address] [place] Protein (U) [Mass/Vol] Negative Normal Negative [facility] Comment on above: Order Comment: Speci men Type: URINE SPECIMENOrdering Facility: [facility] Address: [address] [place] [address] Performed By: #### L [id number] ####[place] [facility]ORATORYCLIA [id number] [address] [place] RBC LM.HPF (Urine sed) [#/Area] 0-3 /HPF Normal 0-3 /HPF [facility] Comment on above: Order Comment: Speci men Type: URINE SPECIMENOrdering Facility: [facility] Address: [address] [place] [address] Performed By: #### L [id number] ####[place] [facility]ORATORYCLIA [id number] [address] [place] Specific gravity (U) [Rel density] <=1.005 Low 1.005-1.030 [facility] Comment on above: Order Comment: Speci men Type: URINE SPECIMENOrdering Facility: [facility] Address: [address] [place] [address] Performed By: #### L [id number] ####[place] [facility]ORATORYCLIA [id number] [address] Urobilinogen Ql (U) 0.2 EU/dL Normal 0.2-1.0 EU/dL [facility] Comment on above: Order Comment: Speci men Type: URINE SPECIMENOrdering Facility: [facility] Address: [address] [place] [address] Performed By: #### L [id number] ####[facility] LABORATORYCLIA [id number] [address] WBC LM.HPF (Urine sed) [#/Area] 0-5 /HPF Normal 0-5 /HPF [facility] Comment on above: Order Comment: Speci men Type: URINE SPECIMENOrdering Facility: [facility] Address: [address] [place] [address] Performed By: #### L [id number] ####[facility] LABORATORYCLIA [id number] [place] [address] [place] US ABD RIGHT UPPER QUADRANTo n 04-25-2022 US ABD RIGHT UPPER QUADRANT Normal [facility] XR ABD 2V SUPINE W UPR/DECUB /CTLon 04-25-2022 XR ABD 2V SUPINE W UPR/DECUB/CTL Normal [facility] ALLIED HEALTHon 04-24-2022 [facility] CBC W Auto Differential pane l (Bld)on 04-24-2022 Basophils (Bld) [#/Vol] 0.10 10*3/uL Normal <0.11 [facility] Comment on above: Order Comment: Speci men Type: BLOOD SPECIMENOrdering Facility: [facility] Address: [address] [place] [address] Performed By: #### 5 7021-8 ####[facility] LABORATORYCLIA [id number] [address] [place] [facility] Basophils/100 WBC (Bld) 0.9 % Normal [facility] Comment on above: Order Comment: Speci men Type: BLOOD SPECIMENOrdering Facility: [facility] Address: [address] [place] [address] Performed By: #### 5 7021-8 ####[facility] LABORATORYCLIA [id number] [address] [place] Differential cell count method Nom (Bld) Auto Normal [facility] Comment on above: Order Comment: Speci men Type: BLOOD SPECIMENOrdering Facility: [facility] Address: [address] [place] [address] Performed By: #### 5 7021-8 ####[facility] LABORATORYCLIA [id number] [place] [address] [place] Eosinophils (Bld) [#/Vol] 0.03 10*3/uL Normal <0.46 [facility] Comment on above: Order Comment: Speci men Type: BLOOD SPECIMENOrdering Facility: [facility] Address: [address] [place] [address] Performed By: #### 5 7021-8 ####[facility] LABORATORYCLIA [id number] [address] [place] Eosinophils/100 WBC (Bld) 0.3 % Normal [facility] Comment on above: Order Comment: Speci men Type: BLOOD SPECIMENOrdering Facility: [facility] Address: [address] [place] [address] Performed By: #### 5 7021-8 ####[facility] LABORATORYCLIA [id number] [address] [place] Erythrocyte distribution width (RBC) [Ratio] 12.7 % Normal 11.5-15.0 [facility] Comment on above: Order Comment: Speci men Type: BLOOD SPECIMENOrdering Facility: [facility] Address: [address] [place] [address] Performed By: #### 5 7021-8 ####[facility] LABORATORYCLIA [id number] [address] [place] Hematocrit (Bld) [Volume fraction] 42.4 % Normal 36.0-46.0 [facility] Comment on above: Order Comment: Speci men Type: BLOOD SPECIMENOrdering Facility: [facility] Address: [address] [place] [address] Performed By: #### 5 7021-8 ####[facility]ORATORYCLIA [id number] [address] [place] Hemoglobin (Bld) [Mass/Vol] 14.5 g/dL Normal 11.5-15.5 [facility] Comment on above: Order Comment: Speci men Type: BLOOD SPECIMENOrdering Facility: [facility] Address: [address] [place] [address] Performed By: #### 5 7021-8 ####[facility]ORATORYCLIA [id number] [address] IMMATURE GRAN % 0.7 % Normal [facility] Comment on above: Order Comment: Speci men Type: BLOOD SPECIMENOrdering Facility: [facility] Address: [address] [place] [address] Performed By: #### 5 7021-8 ####[facility]ORATORYCLIA [id number] [address] IMMATURE GRAN ABS 0.08 k/uL Normal <0.10 [facility] Comment on above: Order Comment: Speci men Type: BLOOD SPECIMENOrdering Facility: [facility] Address: [address] [place] [address] Performed By: #### 5 7021-8 ####[facility] LABORATORYCLIA [id number] [address] Lymphocytes (Bld) [#/Vol] 2.02 10*3/uL Normal 1.00-4.00 [facility] Comment on above: Order Comment: Speci men Type: BLOOD SPECIMENOrdering Facility: [facility] Address: [address] [place] [address] Performed By: #### 5 7021-8 ####[facility] LABORATORYCLIA [id number] [address] Lymphocytes/100 WBC (Bld) 18.9 % Normal [facility] Comment on above: Order Comment: Speci men Type: BLOOD SPECIMENOrdering Facility: [facility] Address: [address] [place] [address] Performed By: #### 5 7021-8 ####[facility] LABORATORYCLIA [id number] [address] MCH (RBC) [Entitic mass] 30.4 pg Normal 26.0-34.0 [facility] Comment on above: Order Comment: Speci men Type: BLOOD SPECIMENOrdering Facility: [facility] Address: [address] [place] [address] Performed By: #### 5 7021-8 ####[facility] LABORATORYCLIA [id number] [address] MCHC (RBC) [Mass/Vol] 34.2 g/dL Normal 30.5-36.0 [facility] Comment on above: Order Comment: Speci men Type: BLOOD SPECIMENOrdering Facility: [facility] Address: [address] [place] [address] Performed By: #### 5 7021-8 ####[facility] LABORATORYCLIA [id number] [address] MCV (RBC) [Entitic vol] 88.9 fL Normal 80.0-100.0 [facility] Comment on above: Order Comment: Speci men Type: BLOOD SPECIMENOrdering Facility: [facility] Address: [address] [place] [address] Performed By: #### 5 7021-8 ####[facility] LABORATORYCLIA [id number] [address] [place] Monocytes (Bld) [#/Vol] 0.88 10*3/uL High <0.87 [facility] Comment on above: Order Comment: Speci men Type: BLOOD SPECIMENOrdering Facility: [facility] Address: [address] [place] [address] Performed By: #### 5 7021-8 ####[facility] LABORATORYCLIA [id number] [address] Monocytes/100 WBC (Bld) 8.2 % Normal [facility] Comment on above: Order Comment: Speci men Type: BLOOD SPECIMENOrdering Facility: [facility] Address: [address] [place] [address] Performed By: #### 5 7021-8 ####[facility] LABORATORYCLIA [id number] [address] [place] Neutrophils (Bld) [#/Vol] 7.57 10*3/uL High 1.45-7.50 [facility] Comment on above: Order Comment: Speci men Type: BLOOD SPECIMENOrdering Facility: [facility] Address: [address] [place] [address] Performed By: #### 5 7021-8 ####[facility] LABORATORYCLIA [id number] [address] Neutrophils/100 WBC (Bld) 71.0 % Normal [facility] Comment on above: Order Comment: Speci men Type: BLOOD SPECIMENOrdering Facility: [facility] Address: [address] [place] [address] Performed By: #### 5 7021-8 ####[facility] LABORATORYCLIA [id number] [address] [place] Nucleated RBC (Bld) [#/Vol] 10*3/uL Normal <0.01 [facility] Comment on above: Order Comment: Speci men Type: BLOOD SPECIMENOrdering Facility: [facility] Address: [address] [place], [place] [id number] Performed By: #### 5 7021-8 ####[facility] LABORATORYCLIA [id number] [address] Nucleated RBC/100 WBC (Bld) [Ratio] 0.0 /100 WBC Normal [facility] Comment on above: Order Comment: Speci men Type: BLOOD SPECIMENOrdering Facility: [facility] Address: [address] [place], [place] [id number] Performed By: #### 5 7021-8 ####[facility] LABORATORYCLIA [id number] [address] [place] Platelet mean volume (Bld) [Entitic vol] 8.7 fL Low 9.0-12.7 [facility] Comment on above: Order Comment: Speci men Type: BLOOD SPECIMENOrdering Facility: [facility] Address: [address] [place] [address] Performed By: #### 5 7021-8 ####[facility] LABORATORYCLIA [id number] [address] [place] Platelets (Bld) [#/Vol] 449 10*3/uL High 150-400 [facility] Comment on above: Order Comment: Speci men Type: BLOOD SPECIMENOrdering Facility: [facility] Address: [address] [place] [address] Performed By: #### 5 7021-8 ####[facility] LABORATORYCLIA [id number] [place] [address] [place] RBC (Bld) [#/Vol] 4.77 10*6/uL Normal 3.90-5.20 [facility] Comment on above: Order Comment: Speci men Type: BLOOD SPECIMENOrdering Facility: [facility] Address: [address] [place] [address] Performed By: #### 5 7021-8 ####[facility] LABORATORYCLIA [id number] [address] OF [facility] WBC (Bld) [#/Vol] 10.68 10*3/uL Normal 3.70-11.00 [facility] Comment on above: Order Comment: Speci men Type: BLOOD SPECIMENOrdering Facility: [facility] Address: [address] [place] [address] Performed By: #### 5 7021-8 ####C[facility] LABORATORYCLIA [id number] [address] OF [place] CK TOTAL AND CK-MBon 022 CK [Catalytic activity/Vol] 20 U/L Low 42-196 [facility] Comment on above: Order Comment: Speci men Type: BLOOD SPECIMENOrdering Facility: [facility] Address: [address] [place] [address] Performed By: #### B HB, 81183-0, CKCKMB, 24962-5 ####[facility] LABORATORYCLIA [id number] [address] CK.MB [Mass/Vol] ng/mL Normal <4.4 [facility] Comment on above: Order Comment: Speci men Type: BLOOD SPECIMENOrdering Facility: [facility] Address: [address] [place] [address] Performed By: #### B HB, 74540-5, CKCKMB, 87746-1 ####COTT[facility] LABORATORYCLIA [id number] [address] CK.MB [Ratio] Normal [facility] Comment on above: Order Comment: Speci men Type: BLOOD SPECIMENOrdering Facility: [facility] Address: [address] [place] [address] Result Comment: CK M B % not reported with CK <100 U/L. Performed By: #### B HB, 67891-2, CKCKMB, 85613-1 ####[place] LABORATORYCLIA [id number] [address] Comp Metab 2000 Pnl SerPlon 04-24-2022 Potassium [Moles/Vol] 3.5 mmol/L Normal 3.5-5.0 [facility] Comment on above: Order Comment: Speci men Type: BLOOD SPECIMENOrdering Facility: [facility] Address: [address] [place] [address] Performed By: #### B HB, 99345-8, CHRISTOS, 3040-3 ####[place] LABORATORYCLIA [id number] [address] Order Comment: Speci men Type: VENOUS BLOOD SPECIMENOrdering Facility: [facility] Address: [address] [place] [address] Performed By: #### 2 4344-4 ####[place] RESPIRATORYCLIA [id number] [facility] [id number] [address] Comprehensive metabolic 2000 panelon 04-24-2022 Albumin [Mass/Vol] 3.5 g/dL Low 3.9-4.9 [facility] Comment on above: Order Comment: Speci men Type: BLOOD SPECIMENOrdering Facility: [facility] Address: [address] [place] [address] Performed By: #### B HB, 04381-8, CKCKMB, 54977-1 ####C[facility] LABORATORYCLIA [id number] [place] [address] [place] ALP [Catalytic activity/Vol] 149 U/L High 34-123 [facility] Comment on above: Order Comment: Speci men Type: BLOOD SPECIMENOrdering Facility: [facility] Address: [address] [place] [address] Performed By: #### B HB, 93052-9, CKCKMB, 27056-0 ####[facility] LABORATORYCLIA [id number] [place] [address] [place] ALT [Catalytic activity/Vol] 9 U/L Normal 7-38 [facility] Comment on above: Order Comment: Speci men Type: BLOOD SPECIMENOrdering Facility: [facility] Address: [address] [place] [address] Performed By: #### B HB, 07087-8, CKCKMB, 36618-0 ####[facility] LABORATORYCLIA [id number] [address] [place] Anion gap [Moles/Vol] 16 mmol/L Normal 9-18 [facility] Comment on above: Order Comment: Speci men Type: BLOOD SPECIMENOrdering Facility: [facility] Address: [address] [place] [address] Performed By: #### B HB, 53710-9, CKCKMB, 22439-5 ####[facility] LABORATORYCLIA [id number] [address] [place] AST [Catalytic activity/Vol] 11 U/L Low 13-35 [facility] Comment on above: Order Comment: Speci men Type: BLOOD SPECIMENOrdering Facility: [facility] Address: [address] [place] [address] Performed By: #### B HB, 01159-8, CKCKMB, 26399-0 ####[facility] LABORATORYCLIA [id number] [place] [address] [place] Bilirubin [Mass/Vol] 0.2 mg/dL Normal 0.2-1.3 [facility] Comment on above: Order Comment: Speci men Type: BLOOD SPECIMENOrdering Facility: [facility] Address: [address] [place] [address] Performed By: #### B HB, 48097-2, CKCKMB, 00055-5 ####[facility] LABORATORYCLIA [id number] [place] [address] [place] Calcium [Mass/Vol] 8.8 mg/dL Normal 8.5-10.2 [facility] Comment on above: Order Comment: Speci men Type: BLOOD SPECIMENOrdering Facility: [facility] Address: [address] [place] [address] Performed By: #### B HB, 89719-3, CKCKMB, 94555-9 ####[facility] LABORATORYCLIA [id number] [place] [address] [place] Chloride [Moles/Vol] 98 mmol/L Normal 97-105 [facility] Comment on above: Order Comment: Speci men Type: BLOOD SPECIMENOrdering Facility: [facility] Address: [address] [place] [address] Performed By: #### B HB, 57823-1, CKCKMB, 99286-0 ####[facility] LABORATORYCLIA [id number] [place] [address] [place] CO2 [Moles/Vol] 20 mmol/L Low 22-30 [facility] Comment on above: Order Comment: Speci men Type: BLOOD SPECIMENOrdering Facility: [facility] Address: [address] [place] [address] Performed By: #### B HB, 85031-8, CKCKMB, 98040-5 ####[facility] LABORATORYCLIA [id number] [place] [address] [place] Creatinine [Mass/Vol] 0.46 mg/dL Low 0.58-0.96 [facility] Comment on above: Order Comment: Speci men Type: BLOOD SPECIMENOrdering Facility: [facility] Address: [address] [place] [address] Performed By: #### B HB, 25188-3, CKCKMB, 45660-9 ####[facility] LABORATORYCLIA [id number] [place] [address] [place] ESTIMATED GLOMERULAR FILTRATION RATE 138 mL/min/1.73m??? Normal >=60 [facility] Comment on above: Order Comment: Reginald vieira Type: BLOOD SPECIMENOrdering Facility: [facility] Address: [address] [place] [address] Result Comment: Steffi mated Glomerular Filtration Rate (eGFR) is calculated using the 2020 CKD-EPI creatinine equation. This equation utilizes serum creatinine, sex, and age as parameters. The creatinine assay has traceable calibration to isotope dilution-mass spectrometry. Refer to KDIGO guidelines for clinical interpretation. In patients with unstable renal function, e.g. those with acute kidney injury, the eGFR may not accurately reflect actual GFR. Performed By: #### B HB, 47716-4, CKCKMB, 90978-6 ####[place] LABORATORYCLIA [id number] [place] [address] [place] Glucose [Mass/Vol] 199 mg/dL High 74-99 [facility] Comment on above: Order Comment: Reginald vieira Type: BLOOD SPECIMENOrdering Facility: [facility] Address: [address] [place] [address] Result Comment: The [place] [employer] (ADA) provides guidance for cutoff values for fasting glucose and random glucose. The ADA defines fasting as no caloric intake for at least 8 hours. Fasting plasma glucose results between 100 to 125 mg/dL indicate increased risk for diabetes (prediabetes).Fasting plasma glucose results greater than or equal to 126 mg/dL meet the criteria for diagnosis of diabetes. In the absence of unequivocal hyperglycemia, results should be confirmed by repeat testing. In a patient with classic symptoms of hyperglycemia or hyperglycemic crisis, random plasma glucose results greater than or equal to 200 mg/dL meet the criteria for diagnosis of diabetes.Reference: Standards of Medical Care in Diabetes 2016, [place] [employer]. Diabetes Care. 2016.39(Suppl 1). Performed By: #### B HB, 98566-7, CKCKMB, 44882-2 ####[place] LABORATORYCLIA [id number] [place] [id number] [place] Potassium [Moles/Vol] 3.4 mmol/L Low 3.7-5.1 [facility] Comment on above: Order Comment: Speci men Type: BLOOD SPECIMENOrdering Facility: [facility] Address: [address] [place] [address] Performed By: #### B HB, 47838-4, CKCKMB, 45601-8 ####[facility] LABORATORYCLIA [id number] [place] [address] [place] Protein [Mass/Vol] 6.3 g/dL Normal 6.3-8.0 [facility] Comment on above: Order Comment: Speci men Type: BLOOD SPECIMENOrdering Facility: [facility] Address: [address] [place] [address] Performed By: #### B HB, 51129-9, CKCKMB, 43532-3 ####[facility] LABORATORYCLIA [id number] [place] [address] [place] Sodium [Moles/Vol] 134 mmol/L Low 136-144 [facility] Comment on above: Order Comment: Speci men Type: BLOOD SPECIMENOrdering Facility: [facility] Address: [address] [place] [address] Performed By: #### B HB, 74860-8, CKCKMB, 94500-1 ####[facility] LABORATORYCLIA [id number] [place] [address] [place] Urea nitrogen [Mass/Vol] 6 mg/dL Low 7-21 [facility] Comment on above: Order Comment: Speci men Type: BLOOD SPECIMENOrdering Facility: [facility] Address: [address] [place], [place] [id number] Performed By: #### B HB, 14945-0, CKCKMB, 49511-8 ####[facility] LABORATORYCLIA [id number] [address] [place] Albumin [Mass/Vol] 4.2 g/dL Normal 3.9-4.9 [facility] Comment on above: Order Comment: Speci men Type: BLOOD SPECIMENOrdering Facility: [facility] Address: [address] [place] [address] Performed By: #### B HB, 85917-3, CHRISTOS, 3040-3 ####[facility] LABORATORYCLIA [id number] [place] [address] [place] ALP [Catalytic activity/Vol] 196 U/L High 34-123 [facility] Comment on above: Order Comment: Speci men Type: BLOOD SPECIMENOrdering Facility: [facility] Address: [address] [place] [address] Performed By: #### B HB, 11300-1, CHRISTOS, 3040-3 ####[facility] LABORATORYCLIA [id number] [place] [address] [place] ALT [Catalytic activity/Vol] 11 U/L Normal 7-38 [facility] Comment on above: Order Comment: Speci men Type: BLOOD SPECIMENOrdering Facility: [facility] Address: [address] [place] [address] Performed By: #### B HB, 58820-4, CHRISTOS, 3040-3 ####[facility] LABORATORYCLIA [id number] [address] [place] [facility] Anion gap [Moles/Vol] 24 mmol/L High 9-18 [facility] Comment on above: Order Comment: Speci men Type: BLOOD SPECIMENOrdering Facility: [facility] Address: [address] [place] [address] Performed By: #### B HB, 49582-4, CHRISTOS, 3040-3 ####[facility] LABORATORYCLIA [id number] [address] [place] AST [Catalytic activity/Vol] 15 U/L Normal 13-35 [facility] Comment on above: Order Comment: Speci men Type: BLOOD SPECIMENOrdering Facility: [facility] Address: [address] [place] [address] Performed By: #### B HB, 77557-3, CHRISTOS, 3040-3 ####[facility] LABORATORYCLIA [id number] [place] [address] [place] Bilirubin [Mass/Vol] 0.4 mg/dL Normal 0.2-1.3 [facility] Comment on above: Order Comment: Speci men Type: BLOOD SPECIMENOrdering Facility: [facility] Address: [address] [place] [address] Performed By: #### B HB, 37083-2, CHRISTOS, 3040-3 ####[facility] LABORATORYCLIA [id number] [place] [address] [place] Calcium [Mass/Vol] 10.3 mg/dL High 8.5-10.2 [facility] Comment on above: Order Comment: Speci men Type: BLOOD SPECIMENOrdering Facility: [facility] Address: [address] [place] [address] Performed By: #### B HB, 44818-1, CHRISTOS, 3040-3 ####[facility] LABORATORYCLIA [id number] [place] [address] [place] Chloride [Moles/Vol] 95 mmol/L Low 97-105 [facility] Comment on above: Order Comment: Speci men Type: BLOOD SPECIMENOrdering Facility: [facility] Address: [address] [place] [address] Performed By: #### B HB, 42342-7, CHRISTOS, 3040-3 ####[facility] LABORATORYCLIA [id number] [place] [address] [place] CO2 [Moles/Vol] 18 mmol/L Low 22-30 [facility] Comment on above: Order Comment: Speci men Type: BLOOD SPECIMENOrdering Facility: [facility] Address: [address] [place] [address] Performed By: #### B HB, 70028-6, CHRISTOS, 3040-3 ####[facility] LABORATORYCLIA [id number] [place] [address] [place] Creatinine [Mass/Vol] 0.69 mg/dL Normal 0.58-0.96 [facility] Comment on above: Order Comment: Speci men Type: BLOOD SPECIMENOrdering Facility: [facility] Address: [address] [place] [address] Performed By: #### B HB, 78726-4, CHRISTOS, 3040-3 ####[facility] LABORATORYCLIA [id number] [address] [place] ESTIMATED GLOMERULAR FILTRATION RATE 125 mL/min/1.73m??? Normal >=60 [facility] Comment on above: Order Comment: Reginald vieira Type: BLOOD SPECIMENOrdering Facility: [facility] Address: [address] [place] [address] Result Comment: Steffi mated Glomerular Filtration Rate (eGFR) is calculated using the 2020 CKD-EPI creatinine equation. This equation utilizes serum creatinine, sex, and age as parameters. The creatinine assay has traceable calibration to isotope dilution-mass spectrometry. Refer to KDIGO guidelines for clinical interpretation. In patients with unstable renal function, e.g. those with acute kidney injury, the eGFR may not accurately reflect actual GFR. Performed By: #### B HB, 95740-8, CHRISTOS, 0-3 ####[place] LABORATORYCLIA [id number] [place] [address] [place] Glucose [Mass/Vol] 151 mg/dL High 74-99 [facility] Comment on above: Order Comment: Reginald vieira Type: BLOOD SPECIMENOrdering Facility: [facility] Address: [address] [place] [address] Result Comment: The [place] Diabetes [employer] (ADA) provides guidance for cutoff values for fasting glucose and random glucose. The ADA defines fasting as no caloric intake for at least 8 hours. Fasting plasma glucose results between 100 to 125 mg/dL indicate increased risk for diabetes (prediabetes).Fasting plasma glucose results greater than or equal to 126 mg/dL meet the criteria for diagnosis of diabetes. In the absence of unequivocal hyperglycemia, results should be confirmed by repeat testing. In a patient with classic symptoms of hyperglycemia or hyperglycemic crisis, random plasma glucose results greater than or equal to 200 mg/dL meet the criteria for diagnosis of diabetes.Reference: Standards of Medical Care in Diabetes 2016, [place] [employer]. Diabetes Care. 2016.39(Suppl 1). Performed By: #### B HB, 94678-4, CHRISTOS, 0-3 ####[place] LABORATORYCLIA [id number] [place] [address] [place] Protein [Mass/Vol] 8.2 g/dL High 6.3-8.0 [facility] Comment on above: Order Comment: Speci men Type: BLOOD SPECIMENOrdering Facility: [facility] Address: [address] [place] [address] Performed By: #### B HB, 53687-6, CHRISTOS, 3040-3 ####[facility] LABORATORYCLIA [id number] [address] Sodium [Moles/Vol] 137 mmol/L Normal 136-144 [facility] Comment on above: Order Comment: Speci men Type: BLOOD SPECIMENOrdering Facility: [facility] Address: [address] [place] [address] Performed By: #### B HB, 36682-2, CHRISTOS, 3040-3 ####[facility] LABORATORYCLIA [id number] [address] Urea nitrogen [Mass/Vol] 7 mg/dL Normal 7-21 [facility] Comment on above: Order Comment: Speci men Type: BLOOD SPECIMENOrdering Facility: [facility] Address: [address] [place] [address] Performed By: #### B HB, 38605-6, CHRISTOS, 3040-3 ####[facility] LABORATORYCLIA [id number] [address] EBV capsid IgM Qn (S)on EBV VCA IGM, QUAL Negative Normal Negative [facility] Comment on above: Order Comment: Speci men Type: BLOOD SPECIMENOrdering Facility: [facility] Address: [address] [place] [address] Result Comment: No s erological evidence of recent EBV infection. Performed By: #### 7 886-5 ####[facility] LABCLIA [id number] [facility] [id number] [place] [address] [place] ED NOTEon 04-24-2022 ED NOTE HNO ID: [id number] Author: Renata De La Torre RN Service: ? Author Type: Registered Nurse Type: ED Notes Filed: 04/24/2022 5:46 PM Note Text: Pt given juice and apple sauce will recheck pts BS within an hour Normal [facility] ED NOTE HNO ID: [id number] Author: Renata De La Torre RN Service: ? Author Type: Registered Nurse Type: ED Notes Filed: 04/24/2022 4:02 PM Note Text: pts father and boyfriend at bedside [facility] ED NOTE HNO ID: [id number] Author: Renata De La Torre RN Service: ? Author Type: Registered Nurse Type: ED Notes Filed: 04/24/2022 3:56 PM Note Text: Portable xray at bedside [facility] ED NOTE HNO ID: [id number] Author: Renata De La Torre RN Service: ? Author Type: Registered Nurse Type: ED Notes Filed: 04/24/2022 3:56 PM Note Text: Pt states they are unable to give a urine sample at this time and will let RN know when they can produce sample. [facility] ED NOTE HNO ID: [id number] Author: Aliyah Pollack RN Service: ? Author Type: Registered Nurse Type: ED Notes Filed: 04/24/2022 3:13 PM Note Text: Pt to ED reports ketones in urine, nausea and vomiting. Blood sugar around [address] was [address] [facility] ED PROV NOTEon 04-24-2022 ED PROV NOTE Normal [facility] Ethanol SerPl-mCncon 022 Ethanol [Mass/Vol] mg/dL Normal <11 [facility] Comment on above: Order Comment: Speci men Type: BLOOD SPECIMENOrdering Facility: [facility] Address: [address] [place], [place] [address] Performed By: #### H CG, 5643-2 ####[place] LABORATORYCLIA [id number] [place] [address] [place] Gas and Carbon monoxide pane l (BldV)on 04-24-2022 BASE DEFICIT, VENOUS -6 mmol/L Low -2-0 [facility] Comment on above: Order Comment: Speci men Type: VENOUS BLOOD SPECIMENOrdering Facility: [facility] Address: [address] [place] [address] Performed By: #### 2 4344-4 ####[place] RESPIRATORYCLIA [id number] [facility]OSP[facility] RESPIRATORY [id number] [place] [address] Carboxyhemoglobin (BldV) [Mass fraction] 1.3 % Normal 0.0-2.0 [facility] Comment on above: Order Comment: Speci men Type: VENOUS BLOOD SPECIMENOrdering Facility: [facility] Address: [address] [place] [address] Result Comment: Carb oxyhemoglobin Reference Range for Smokers: 2.0-8.0% Performed By: #### 2 4344-4 ####[place] RESPIRATORYCLIA [id number] [facility]OS[facility] RESPIRATORY [id number] [address] CO2 (BldV) [Partial pressure] 33 mm[Hg] Low 42-55 [facility] Comment on above: Order Comment: Reginald men Type: VENOUS BLOOD SPECIMENOrdering Facility: [facility] Address: [address] [place] [address] Performed By: #### 2 4344-4 ####[place] [facility]ORYCOP[facility] [id number] [facility] RESPIRATORY [id number] [place] [address] CO2 adjusted to patient's actual temperature (BldV) [Partial pressure] Normal [facility] Comment on above: Order Comment: Speci men Type: VENOUS BLOOD SPECIMENOrdering Facility: [facility] Address: [address] [place] [address] Performed By: #### 2 4344-4 ####[place] [facility]ORYCOP[facility] [id number] [facility] RESPIRATORY [id number] [address] HCO3 (Bld) [Moles/Vol] 19 mmol/L Low 24-28 [facility] Comment on above: Order Comment: Speci men Type: VENOUS BLOOD SPECIMENOrdering Facility: [facility] Address: [address] [place] [address] Performed By: #### 2 4344-4 ####[facility] [id number] [facility]OSP[facility] RESPIRATORY [id number] [address] Hemoglobin (Bld) [Mass/Vol] 15.2 g/dL Normal 11.5-15.5 [facility] Comment on above: Order Comment: Speci men Type: VENOUS BLOOD SPECIMENOrdering Facility: [facility] Address: [address] Performed By: #### 2 4344-4 ####[facility] RESPIRATORYCLIA [id number] [facility] RESPIRATORY [id number] [address] Lactate [Moles/Vol] 6.1 mmol/L High 0.5-2.2 [facility] Comment on above: Order Comment: Speci men Type: VENOUS BLOOD SPECIMENOrdering Facility: [facility] Address: [address] [place] [address] Performed By: #### 2 4344-4 ####[facility] RESPIRATORYCLIA [id number] [facility] RESPIRATORY [id number] [address] Methemoglobin (Bld) [Mass fraction] % Normal 0.0-1.5 [facility] Comment on above: Order Comment: Speci men Type: VENOUS BLOOD SPECIMENOrdering Facility: [facility] Address: [address] Performed By: #### 2 4344-4 ####[facility] RESPIRATORYCLIA [id number] HOSPITAL RESPIRATORY [id number] [address] O2 THERAPY RA=Room Air Normal [facility] Comment on above: Order Comment: Speci men Type: VENOUS BLOOD SPECIMENOrdering Facility: [facility] Address: [address] Performed By: #### 2 4344-4 ####[facility] RESPIRATORYCLIA [id number] [facility]OSPITAL RESPIRATORY [id number] [address] [address] Oxygen (BldV) [Partial pressure] mm[Hg] Low 35-45 [facility] Comment on above: Order Comment: Speci men Type: VENOUS BLOOD SPECIMENOrdering Facility: [facility] Address: [address] Performed By: #### 2 4344-4 ####[facility] RESPIRATORYCLIA [id number] [facility]OSP[facility] RESPIRATORY [id number] [address] Oxygen adjusted to patient's actual temperature (BldV) [Partial pressure] Normal [facility] Comment on above: Order Comment: Speci men Type: VENOUS BLOOD SPECIMENOrdering Facility: [facility] Address: [address] [place] [address] Performed By: #### 2 4344-4 ####[place] RESPIRATORYIA [id number] [facility] [id number] [address] Oxyhemoglobin (BldV) [Mass fraction] 55 % Low 60-85 [facility] Comment on above: Order Comment: Speci men Type: VENOUS BLOOD SPECIMENOrdering Facility: [facility] Address: [address] [place] [address] Performed By: #### 2 4344-4 ####[place] RESPIRATORYIA [id number] [facility] RESPIRAT[facility] [id number] [address] pH (BldV) 7.37 [pH] Normal 7.32-7.42 [facility] Comment on above: Order Comment: Speci men Type: VENOUS BLOOD SPECIMENOrdering Facility: [facility] Address: [address] [place] [address] Performed By: #### 2 4344-4 ####[place] [facility]COP[facility] [id number] [facility]OS[facility] RESPIRATORY [id number] [address] [address] pH adjusted to patient's actual temperature (BldV) Normal [facility] Comment on above: Order Comment: Speci men Type: VENOUS BLOOD SPECIMENOrdering Facility: [facility] Address: [address] [place] [address] Performed By: #### 2 4344-4 ####[place] [facility]ORYCOP[facility] [id number] [facility] RESPIRATORY [id number] [address] HCG QUAL BLDon 04-24-2022 HCG, QUALITATIVE Negative Normal Negative [facility] Comment on above: Order Comment: Speci men Type: BLOOD SPECIMENOrdering Facility: [facility] Address: [address] [place] [address] Performed By: #### H CG, 5643-2 ####[facility] LABORATORYCLIA [id number] [address] [place] HISTORY PHYSICALon 2 HISTORY PHYSICAL Normal [facility] KETONES/ACETONE/BHBon 2021 Beta hydroxybutyrate [Moles/Vol] 3.97 mmol/L High <0.28 [facility] Comment on above: Order Comment: Speci men Type: BLOOD SPECIMENOrdering Facility: [facility] Address: [address] [place] [address] Performed By: #### B HB, 935[address]-1, CKCKMB, 23555-7 ####[facility] LABORATORYCLIA [id number] [address] [place] Beta hydroxybutyrate [Moles/Vol] 4.12 mmol/L High <0.28 [facility] Comment on above: Order Comment: Speci men Type: BLOOD SPECIMENOrdering Facility: [facility] Address: [address] [place] [address] Performed By: #### [place], [address]-5, CHRISTOS, 3040-3 ####[facility] LABORATORYCLIA [id number] [place] [address] [place] Lipase SerPl-cCncon 04-24-20 22 Lipase [Catalytic activity/Vol] 8 U/L Low 16-61 [facility] Comment on above: Order Comment: Speci men Type: BLOOD SPECIMENOrdering Facility: [facility] Address: [address] [place] [address] Performed By: #### [place], [address]-2, CHRISTOS, 3040-3 ####[facility] LABORATORYCLIA [id number] [place] [address] [place] Magnesium SerPl-mCncon 04-24 Magnesium [Mass/Vol] 1.7 mg/dL Normal 1.7-2.3 [facility] Comment on above: Order Comment: Speci men Type: BLOOD SPECIMENOrdering Facility: [facility] Address: [address] [address] Performed By: #### 1 9123-9, 2777-1, CHRISTOS ####[place] LABORATORYCLIA [id number] [place] [address] [place] PT panel Coag (PPP)on 2021 INR Coag (PPP) [Relative time] 1.0 {INR} Normal 0.9-1.3 [facility] Comment on above: Order Comment: Reginald vieira Type: BLOOD SPECIMENOrdering Facility: [facility] Address: [address] [address] Result Comment: Adelita min K Antagonist (VKA) Therapeutic Range: INR 2 to 3 (Target INR of 2.5)Note: For patients treated with VKA drugs, such as warfarin, the [employer] 2012 Guideline recommends a therapeutic INR range of 2 to 3 (target INR of 2.5). This recommendation includes high-risk patients with antiphospholipid syndrome with previous arterial or venous thromboembolism, current-generation mechanical or bioprosthetic aortic heart valve replacement.Note: Patients with mechanical aortic valve replacement and additional risk factors for thromboembolic events (atrial fibrillation, previous thromboembolism, LV dysfunction, hypercoagulable conditions) or an older generation mechanical AVR (i.e., ball in-Cage) or any mechanical MVR should have a INR therapeutic range of 2.5 to 3.5 (target INR of 3).Joselito GH, et al. Chest 2012, 141:7S-47SNishimalexis RA, et al. [facility] 2017, 70: 252-289 Performed By: #### 3 4528-0 ####[place] LABORATORYCLIA [id number] [place] [address] [place] PT Coag (PPP) [Time] 11.0 s Normal 9.7-13.0 [facility] Comment on above: Order Comment: Reginald vieira Type: BLOOD SPECIMENOrdering Facility: [facility] Address: [address] [address] Performed By: #### 3 4528-0 ####[place] LABORATORYCLIA [id number] [place] [address] [place] Phosphate SerPl-mCncon 04-24 Phosphate [Mass/Vol] 3.4 mg/dL Normal 2.7-4.8 [facility] Comment on above: Order Comment: Speci men Type: BLOOD SPECIMENOrdering Facility: [facility] Address: [address] [place] [address] Performed By: #### 1 9123-9, 2777-1, CHRISTOS ####[place] LABORATORYCLIA [id number] [address] Procalcitonin SerPl-mCncon 0 04-24-2022 Procalcitonin [Mass/Vol] 0.15 ng/mL High <0.09 [facility] Comment on above: Order Comment: Speci men Type: BLOOD SPECIMENOrdering Facility: [facility] Address: [address] [place] [address] Result Comment: For a guided interpretation of test results, please visit the Change in Procalcitonin Calculator, [email or web address]. Performed By: #### [place], [address]-4, CKCKMB, 85523-2 ####[place] LABORATORYCLIA [id number] [address] [place] SARS-CoV-2 RNA Resp Ql KENNA+p robeon 04-24-2022 SARS-CoV-2 (COVID-19) RNA KENNA+probe Ql (Resp) COVID 19 RESULT: SARS-CoV-2 (Agent of COVID-19) Not Detected by RT-PCR or equivalent method. This test has been authorized by FDA under an Emergency Use Authorization (EUA). Normal [facility] Comment on above: Performed By: #### 9 4500-6 ####[place] LABORATORYCLIA [id number] [address] [place] SEPSIS LACTATEon 04-24-2022 Lactate [Moles/Vol] 1.5 mmol/L Normal 0.5-2.0 [facility] Comment on above: Order Comment: Speci men Type: BLOOD SPECIMENOrdering Facility: [facility] Address: [address] [place] [address] Performed By: #### S LACT ####[place] LABORATORYCLIA [id number] [address] TROPONIN Ton 04-24-2022 Troponin T.cardiac [Mass/Vol] ug/L Normal 0.000-0.029 [facility] Comment on above: Order Comment: Speci men Type: BLOOD SPECIMENOrdering Facility: [facility] Address: [address] [place] [address] Performed By: #### 1 9123-9, 2777-1, CHRISTOS ####[place] LABORATORYCLIA [id number] [address] Troponin T.cardiac [Mass/Vol] ug/L Normal 0.000-0.029 [facility] Comment on above: Order Comment: Speci men Type: BLOOD SPECIMENOrdering Facility: [facility] Address: [address] [place] [address] Performed By: #### [place], 386[address]-7, CHRISTOS, 3040-3 ####[place] LABORATORYCLIA [id number] [address] XR CHEST 1V FRONTAL PORTon 0 04-24-2022 XR CHEST 1V FRONTAL PORT Normal [facility] Bacteria Ur Culton 2 Bacteria identified Cx Nom (U) ORGANISM ID: 1 50,000-<100,000 CFU/ml Normal urogenital yasmine Normal [facility] Comment on above: Performed By: #### 6 30-4 ####[facility] LABCLIA [id number] [facility] [id number] [place] [address] CBC W Auto Differential pane l (Bld)on 04-02-2022 Basophils (Bld) [#/Vol] 0.12 10*3/uL High <0.11 [facility] Comment on above: Order Comment: Speci men Type: BLOOD SPECIMENOrdering Facility: [facility] Address: [address] [place] [address] Performed By: #### 5 7021-8 ####[place] LABORATORYCLIA [id number] [address] Basophils/100 WBC (Bld) 1.2 % Normal [facility] Comment on above: Order Comment: Speci men Type: BLOOD SPECIMENOrdering Facility: [facility] Address: [address] [place] [address] Performed By: #### 5 7021-8 ####[facility] LABORATORYCLIA [id number] [address] [place] Differential cell count method Nom (Bld) Auto Normal [facility] Comment on above: Order Comment: Speci men Type: BLOOD SPECIMENOrdering Facility: [facility] Address: [address] [place] [address] Performed By: #### 5 7021-8 ####[facility] LABORATORYCLIA [id number] [address] [place] Eosinophils (Bld) [#/Vol] 0.11 10*3/uL Normal <0.46 [facility] Comment on above: Order Comment: Speci men Type: BLOOD SPECIMENOrdering Facility: [facility] Address: [address] [place] [address] Performed By: #### 5 7021-8 ####[facility] LABORATORYCLIA [id number] [address] [place] [facility] Eosinophils/100 WBC (Bld) 1.1 % Normal [facility] Comment on above: Order Comment: Speci men Type: BLOOD SPECIMENOrdering Facility: [facility] Address: [address] [place] [address] Performed By: #### 5 7021-8 ####[facility] LABORATORYCLIA [id number] [address] [place] [facility] Erythrocyte distribution width (RBC) [Ratio] 13.2 % Normal 11.5-15.0 [facility] Comment on above: Order Comment: Speci men Type: BLOOD SPECIMENOrdering Facility: [facility] Address: [address] [place] [address] Performed By: #### 5 7021-8 ####[facility] LABORATORYCLIA [id number] [place] [address] [place] Hematocrit (Bld) [Volume fraction] 44.2 % Normal 36.0-46.0 [facility] Comment on above: Order Comment: Speci men Type: BLOOD SPECIMENOrdering Facility: [facility] Address: [address] [place] [address] Performed By: #### 5 7021-8 ####[facility] LABORATORYCLIA [id number] [address] Hemoglobin (Bld) [Mass/Vol] 15.0 g/dL Normal 11.5-15.5 [facility] Comment on above: Order Comment: Speci men Type: BLOOD SPECIMENOrdering Facility: [facility] Address: [address] [place] [address] Performed By: #### 5 7021-8 ####[facility] LABORATORYCLIA [id number] [address] IMMATURE GRAN % 1.0 % Normal [facility] Comment on above: Order Comment: Speci men Type: BLOOD SPECIMENOrdering Facility: [facility] Address: [address] [place] [address] Performed By: #### 5 7021-8 ####[facility] LABORATORYCLIA [id number] [address] IMMATURE GRAN ABS 0.10 k/uL High <0.10 [facility] Comment on above: Order Comment: Speci men Type: BLOOD SPECIMENOrdering Facility: [facility] Address: [address] [place] [address] Performed By: #### 5 7021-8 ####[facility] LABORATORYCLIA [id number] [address] Lymphocytes (Bld) [#/Vol] 2.58 10*3/uL Normal 1.00-4.00 [facility] Comment on above: Order Comment: Speci men Type: BLOOD SPECIMENOrdering Facility: [facility] Address: [address] [place] [address] Performed By: #### 5 7021-8 ####[facility] LABORATORYCLIA [id number] [address] Lymphocytes/100 WBC (Bld) 26.6 % Normal [facility] Comment on above: Order Comment: Speci men Type: BLOOD SPECIMENOrdering Facility: [facility] Address: [address] [place] [address] Performed By: #### 5 7021-8 ####[facility] LABORATORYCLIA [id number] [address] MCH (RBC) [Entitic mass] 30.0 pg Normal 26.0-34.0 [facility] Comment on above: Order Comment: Speci men Type: BLOOD SPECIMENOrdering Facility: [facility] Address: [address] [place] [address] Performed By: #### 5 7021-8 ####[facility] LABORATORYCLIA [id number] [address] MCHC (RBC) [Mass/Vol] 33.9 g/dL Normal 30.5-36.0 [facility] Comment on above: Order Comment: Speci men Type: BLOOD SPECIMENOrdering Facility: [facility] Address: [address] [place] [address] Performed By: #### 5 7021-8 ####[facility] LABORATORYCLIA [id number] [address] MCV (RBC) [Entitic vol] 88.4 fL Normal 80.0-100.0 [facility] Comment on above: Order Comment: Speci men Type: BLOOD SPECIMENOrdering Facility: [facility] Address: [address] [place] [address] Performed By: #### 5 7021-8 ####[facility] LABORATORYCLIA [id number] [address] Monocytes (Bld) [#/Vol] 0.84 10*3/uL Normal <0.87 [facility] Comment on above: Order Comment: Speci men Type: BLOOD SPECIMENOrdering Facility: [facility] Address: [address] [place] [address] Performed By: #### 5 7021-8 ####[facility] LABORATORYCLIA [id number] [place] [address] [place] Monocytes/100 WBC (Bld) 8.7 % Normal [facility] Comment on above: Order Comment: Speci men Type: BLOOD SPECIMENOrdering Facility: [facility] Address: [address] [place] [address] Performed By: #### 5 7021-8 ####[facility] LABORATORYCLIA [id number] [place] [address] [place] Neutrophils (Bld) [#/Vol] 5.94 10*3/uL Normal 1.45-7.50 [facility] Comment on above: Order Comment: Speci men Type: BLOOD SPECIMENOrdering Facility: [facility] Address: [address] [place] [address] Performed By: #### 5 7021-8 ####[facility] LABORATORYCLIA [id number] [address] [place] Neutrophils/100 WBC (Bld) 61.4 % Normal [facility] Comment on above: Order Comment: Speci men Type: BLOOD SPECIMENOrdering Facility: [facility] Address: [address] [place] [address] Performed By: #### 5 7021-8 ####[facility] LABORATORYCLIA [id number] [place] [address] [place] Nucleated RBC (Bld) [#/Vol] 10*3/uL Normal <0.01 [facility] Comment on above: Order Comment: Speci men Type: BLOOD SPECIMENOrdering Facility: [facility] Address: [address] [place] [address] Performed By: #### 5 7021-8 ####[facility] LABORATORYCLIA [id number] [address] [place] Nucleated RBC/100 WBC (Bld) [Ratio] 0.0 /100 WBC Normal [facility] Comment on above: Order Comment: Speci men Type: BLOOD SPECIMENOrdering Facility: [facility] Address: [address] [place] [address] Performed By: #### 5 7021-8 ####[place] LABORATORYCLIA [id number] [address] Platelet mean volume (Bld) [Entitic vol] 8.9 fL Low 9.0-12.7 [facility] Comment on above: Order Comment: Speci men Type: BLOOD SPECIMENOrdering Facility: [facility] Address: [address] [place] [address] Performed By: #### 5 7021-8 ####[place] LABORATORYCLIA [id number] [address] [place] Platelets (Bld) [#/Vol] 470 10*3/uL High 150-400 [facility] Comment on above: Order Comment: Speci men Type: BLOOD SPECIMENOrdering Facility: [facility] Address: [address] [place] [address] Performed By: #### 5 7021-8 ####[place] LABORATORYCLIA [id number] [address] RBC (Bld) [#/Vol] 5.00 10*6/uL Normal 3.90-5.20 [facility] Comment on above: Order Comment: Speci men Type: BLOOD SPECIMENOrdering Facility: [facility] Address: [address] [place] [address] Performed By: #### 5 7021-8 ####[place] LABORATORYCLIA [id number] [address] WBC (Bld) [#/Vol] 9.69 10*3/uL Normal 3.70-11.00 [facility] Comment on above: Order Comment: Speci men Type: BLOOD SPECIMENOrdering Facility: [facility] Address: [address] [place] [address] Performed By: #### 5 7021-8 ####[place] LABORATORYCLIA [id number] [address] [place] CONSULTon 04-02-2022 CONSULT Normal [facility] Comprehensive metabolic 2000 panelon 04-02-2022 Albumin [Mass/Vol] 3.4 g/dL Low 3.9-4.9 [facility] Comment on above: Order Comment: Speci men Type: BLOOD SPECIMENOrdering Facility: [facility] Address: [address] [place] [address] Performed By: #### B HB, 06744-3 ####[facility] LABORATORYCLIA [id number] [place] [address] [place] ALP [Catalytic activity/Vol] 164 U/L High 34-123 [facility] Comment on above: Order Comment: Speci men Type: BLOOD SPECIMENOrdering Facility: [facility] Address: [address] [place] [address] Performed By: #### B HB, 86808-7 ####[facility] LABORATORYCLIA [id number] [address] [place] ALT [Catalytic activity/Vol] 10 U/L Normal 7-38 [facility] Comment on above: Order Comment: Speci men Type: BLOOD SPECIMENOrdering Facility: [facility] Address: [address] [place] [address] Performed By: #### B HB, 94564-2 ####[facility] LABORATORYCLIA [id number] [address] [place] Anion gap [Moles/Vol] 12 mmol/L Normal 9-18 [facility] Comment on above: Order Comment: Speci men Type: BLOOD SPECIMENOrdering Facility: [facility] Address: [address] [place] [address] Performed By: #### B HB, 61014-8 ####[facility] LABORATORYCLIA [id number] [address] [place] [facility] AST [Catalytic activity/Vol] 15 U/L Normal 13-35 [facility] Comment on above: Order Comment: Speci men Type: BLOOD SPECIMENOrdering Facility: [facility] Address: [address] [place] [address] Performed By: #### B HB, 53902-9 ####[facility] LABORATORYCLIA [id number] [place] [address] [place] Bilirubin [Mass/Vol] 0.2 mg/dL Normal 0.2-1.3 [facility] Comment on above: Order Comment: Speci men Type: BLOOD SPECIMENOrdering Facility: [facility] Address: [address] Performed By: #### B HB, 35984-8 ####[facility] LABORATORYCLIA [id number] [place] [address] [place] Calcium [Mass/Vol] 8.9 mg/dL Normal 8.5-10.2 [facility] Comment on above: Order Comment: Speci men Type: BLOOD SPECIMENOrdering Facility: [facility] Address: [address] [place], [place] [id number] Performed By: #### B HB, 61790-7 ####[facility] LABORATORYCLIA [id number] [place] [address] [place] Chloride [Moles/Vol] 103 mmol/L Normal 97-105 [facility] Comment on above: Order Comment: Speci men Type: BLOOD SPECIMENOrdering Facility: [facility] Address: [address] [place], [place] [id number] Performed By: #### B HB, 59986-7 ####[facility] LABORATORYCLIA [id number] [place] [address] [place] CO2 [Moles/Vol] 22 mmol/L Normal 22-30 [facility] Comment on above: Order Comment: Speci men Type: BLOOD SPECIMENOrdering Facility: [facility] Address: [address] Performed By: #### B HB, 77289-8 ####[facility] LABORATORYCLIA [id number] [place] [address] [place] Creatinine [Mass/Vol] 0.43 mg/dL Low 0.58-0.96 [facility] Comment on above: Order Comment: Speci men Type: BLOOD SPECIMENOrdering Facility: [facility] Address: [address] [place], [place] [address] Performed By: #### B HB, 87757-3 ####[facility] LABORATORYCLIA [id number] [place] [id number] [place] ESTIMATED GLOMERULAR FILTRATION RATE 140 mL/min/1.73m??? Normal >=60 [facility] Comment on above: Order Comment: Reginald vieira Type: BLOOD SPECIMENOrdering Facility: [facility] Address: [address] [place] [address] Result Comment: Steffi mated Glomerular Filtration Rate (eGFR) is calculated using the 2020 CKD-EPI creatinine equation. This equation utilizes serum creatinine, sex, and age as parameters. The creatinine assay has traceable calibration to isotope dilution-mass spectrometry. Refer to KDIGO guidelines for clinical interpretation. In patients with unstable renal function, e.g. those with acute kidney injury, the eGFR may not accurately reflect actual GFR. Performed By: #### B HB, 23587-2 ####[facility] LABORATORYCLIA [id number] [place] [address] [place] Glucose [Mass/Vol] 124 mg/dL High 74-99 [facility] Comment on above: Order Comment: Reginald vieira Type: BLOOD SPECIMENOrdering Facility: [facility] Address: [address] [place] [address] Result Comment: The [place] [employer] (ADA) provides guidance for cutoff values for fasting glucose and random glucose. The ADA defines fasting as no caloric intake for at least 8 hours. Fasting plasma glucose results between 100 to 125 mg/dL indicate increased risk for diabetes (prediabetes).Fasting plasma glucose results greater than or equal to 126 mg/dL meet the criteria for diagnosis of diabetes. In the absence of unequivocal hyperglycemia, results should be confirmed by repeat testing. In a patient with classic symptoms of hyperglycemia or hyperglycemic crisis, random plasma glucose results greater than or equal to 200 mg/dL meet the criteria for diagnosis of diabetes.Reference: Standards of Medical Care in Diabetes 2016, [place] [employer]. Diabetes Care. 2016.39(Suppl 1). Performed By: #### B [place], 21642-6 ####[place] LABORATORYCLIA [id number] [place] [id number] [place] Potassium [Moles/Vol] 3.5 mmol/L Low 3.7-5.1 [facility] Comment on above: Order Comment: Reginald vieira Type: BLOOD SPECIMENOrdering Facility: [facility] Address: [address] [address] Performed By: #### B HB, 60878-7 ####[facility] LABORATORYCLIA [id number] [place] [address] [place] Protein [Mass/Vol] 6.6 g/dL Normal 6.3-8.0 [facility] Comment on above: Order Comment: Speci men Type: BLOOD SPECIMENOrdering Facility: [facility] Address: [address] [place] [address] Performed By: #### B HB, 43291-5 ####[facility] LABORATORYCLIA [id number] [place] [address] [place] Sodium [Moles/Vol] 137 mmol/L Normal 136-144 [facility] Comment on above: Order Comment: Speci men Type: BLOOD SPECIMENOrdering Facility: [facility] Address: [address] [place] [address] Performed By: #### B HB, 08335-6 ####[facility] LABORATORYCLIA [id number] [place] [address] [place] Urea nitrogen [Mass/Vol] 5 mg/dL Low 7-21 [facility] Comment on above: Order Comment: Speci men Type: BLOOD SPECIMENOrdering Facility: [facility] Address: [address] [place] [address] Performed By: #### B HB, 05938-4 ####[facility] LABORATORYCLIA [id number] [place] [address] [place] Albumin [Mass/Vol] 4.1 g/dL Normal 3.9-4.9 [facility] Comment on above: Order Comment: Speci men Type: BLOOD SPECIMENOrdering Facility: [facility] Address: [address] [place] [address] Performed By: #### 2 4323-8, 63083-1, 3040-3, BHB ####[facility]OTT[facility] LABORATORYCLIA [id number] [place] [address] [place] ALP [Catalytic activity/Vol] 197 U/L High 34-123 [facility] Comment on above: Order Comment: Speci men Type: BLOOD SPECIMENOrdering Facility: [facility] Address: [address] Performed By: #### 2 4323-8, 01523-6, 3040-3, B ####[facility] LABORATORYCLIA [id number] [place] [address] [place] ALT [Catalytic activity/Vol] 12 U/L Normal 7-38 [facility] Comment on above: Order Comment: Speci men Type: BLOOD SPECIMENOrdering Facility: [facility] Address: [address] Performed By: #### 2 4323-8, , 3040-3, B ####[facility] LABORATORYCLIA [id number] [place] [address] [place] Anion gap [Moles/Vol] 18 mmol/L Normal 9-18 [facility] Comment on above: Order Comment: Speci men Type: BLOOD SPECIMENOrdering Facility: [facility] Address: [address] Performed By: #### 2 4323-8, , 0-3, B ####[place] LABORATORYCLIA [id number] [address] [place] AST [Catalytic activity/Vol] 16 U/L Normal 13-35 [facility] Comment on above: Order Comment: Speci men Type: BLOOD SPECIMENOrdering Facility: [facility] Address: [address] Performed By: #### 2 4323-8, 42665-4, 3040-3, B ####[facility] LABORATORYCLIA [id number] [place] [id number] [place] Bilirubin [Mass/Vol] 0.3 mg/dL Normal 0.2-1.3 [facility] Comment on above: Order Comment: Speci men Type: BLOOD SPECIMENOrdering Facility: [facility] Address: [address] Performed By: #### 2 4323-8, 35637-9, 3040-3, B ####[place] LABORATORYCLIA [id number] [place] [address] [place] Calcium [Mass/Vol] 10.0 mg/dL Normal 8.5-10.2 [facility] Comment on above: Order Comment: Speci men Type: BLOOD SPECIMENOrdering Facility: [facility] Address: [address] [place] [address] Performed By: #### 2 4323-8, 79784-4, 3040-3, B ####[place] LABORATORYCLIA [id number] [place] [address] [place] Chloride [Moles/Vol] 98 mmol/L Normal 97-105 [facility] Comment on above: Order Comment: Speci men Type: BLOOD SPECIMENOrdering Facility: [facility] Address: [address] [place] [address] Performed By: #### 2 4323-8, , 0-3, B ####[place] LABORATORYCLIA [id number] [place] [address] [place] CO2 [Moles/Vol] 21 mmol/L Low 22-30 [facility] Comment on above: Order Comment: Speci men Type: BLOOD SPECIMENOrdering Facility: [facility] Address: [address] [place] [address] Performed By: #### 2 4323-8, 80788-1, 3040-3, B ####[place] LABORATORYCLIA [id number] [place] [address] [place] Creatinine [Mass/Vol] 0.44 mg/dL Low 0.58-0.96 [facility] Comment on above: Order Comment: Speci men Type: BLOOD SPECIMENOrdering Facility: [facility] Address: [address] [place] [address] Performed By: #### 2 4323-8, 80209-4, 3040-3, B ####[place] LABORATORYCLIA [id number] [place] [address] [place] ESTIMATED GLOMERULAR FILTRATION RATE 140 mL/min/1.73m??? Normal >=60 [facility] Comment on above: Order Comment: Reginald vieira Type: BLOOD SPECIMENOrdering Facility: [facility] Address: [address] [place] [address] Result Comment: Steffi mated Glomerular Filtration Rate (eGFR) is calculated using the 2020 CKD-EPI creatinine equation. This equation utilizes serum creatinine, sex, and age as parameters. The creatinine assay has traceable calibration to isotope dilution-mass spectrometry. Refer to KDIGO guidelines for clinical interpretation. In patients with unstable renal function, e.g. those with acute kidney injury, the eGFR may not accurately reflect actual GFR. Performed By: #### 2 4323-8, 41157-4, 3040-3, Oj ####[place] LABORATORYCLIA [id number] [place] [id number] [place] Glucose [Mass/Vol] 139 mg/dL High 74-99 [facility] Comment on above: Order Comment: Reginald vieira Type: BLOOD SPECIMENOrdering Facility: [facility] Address: [address] [place], [place] [address] Result Comment: The [place] Diabetes Association (ADA) provides guidance for cutoff values for fasting glucose and random glucose. The ADA defines fasting as no caloric intake for at least 8 hours. Fasting plasma glucose results between 100 to 125 mg/dL indicate increased risk for diabetes (prediabetes).Fasting plasma glucose results greater than or equal to 126 mg/dL meet the criteria for diagnosis of diabetes. In the absence of unequivocal hyperglycemia, results should be confirmed by repeat testing. In a patient with classic symptoms of hyperglycemia or hyperglycemic crisis, random plasma glucose results greater than or equal to 200 mg/dL meet the criteria for diagnosis of diabetes.Reference: Standards of Medical Care in Diabetes 2016, [place] Diabetes Association. Diabetes Care. 2016.39(Suppl 1). Performed By: #### 2 4323-8, 04165-1, 0-3, [facility] ####[place] LABORATORYCLIA [id number] [place] [address] [place] Potassium [Moles/Vol] 3.7 mmol/L Normal 3.7-5.1 [facility] Comment on above: Order Comment: Reginald vieira Type: BLOOD SPECIMENOrdering Facility: [facility] Address: [address] [place], [place] [address] Performed By: #### 2 4323-8, 52646-4, 3040-3, B ####[facility] LABORATORYCLIA [id number] [place] [address] [place] [facility] Protein [Mass/Vol] 7.9 g/dL Normal 6.3-8.0 [facility] Comment on above: Order Comment: Speci men Type: BLOOD SPECIMENOrdering Facility: [facility] Address: [address] [place] [address] Performed By: #### 2 4323-8, 83548-7, 3040-3, B ####[facility] LABORATORYCLIA [id number] [place] [address] [place] Sodium [Moles/Vol] 137 mmol/L Normal 136-144 [facility] Comment on above: Order Comment: Speci men Type: BLOOD SPECIMENOrdering Facility: [facility] Address: [address] [place] [address] Performed By: #### 2 4323-8, 73704-4, 3040-3, B ####[facility] LABORATORYCLIA [id number] [place] [address] [place] Urea nitrogen [Mass/Vol] 6 mg/dL Low 7-21 [facility] Comment on above: Order Comment: Speci men Type: BLOOD SPECIMENOrdering Facility: [facility] Address: [address] [place] [address] Performed By: #### 2 4323-8, 48270-9, 3040-3, B ####[facility] LABORATORYCLIA [id number] [place] [id number] [place] ED NOTEon 04-02-2022 ED NOTE Normal [facility] ED NOTE HNO ID: [id number] Author: Aiyana Sherman, Medic Service: ? Author Type: Internal Communications Writer and Elementary [employer] Teacher Type: ED Notes Filed: 04/02/2022 2:26 PM Note Text: BGC 103 Normal [facility] ED NOTE Normal [facility] ED PROV NOTEon 04-02-2022 ED PROV NOTE Normal [facility] Gas and Carbon monoxide pane l (BldV)on 04-02-2022 BASE DEFICIT, VENOUS -3 mmol/L Low -2-0 [facility] Comment on above: Order Comment: Speci men Type: VENOUS BLOOD SPECIMENOrdering Facility: [facility] Address: [address] [place] [address] Performed By: #### 2 4344-4 ####[place] RESPIRATORYCLIA [id number] [facility] [id number] [address] Carboxyhemoglobin (BldV) [Mass fraction] 1.3 % Normal 0.0-2.0 [facility] Comment on above: Order Comment: Speci men Type: VENOUS BLOOD SPECIMENOrdering Facility: [facility] Address: [address] [place] [address] Result Comment: Carb oxyhemoglobin Reference Range for Smokers: 2.0-8.0% Performed By: #### 2 4344-4 ####[place] RESPIRATORYIA [id number] [facility]IRATORY [id number] [address] CO2 (BldV) [Partial pressure] 44 mm[Hg] Normal 42-55 [facility] Comment on above: Order Comment: Speci men Type: VENOUS BLOOD SPECIMENOrdering Facility: [facility] Address: [address] [place] [address] Performed By: #### 2 4344-4 ####[place] RESPIRATORYIA [id number] [facility]OSP[facility] RESP[facility] [id number] [address] CO2 adjusted to patient's actual temperature (BldV) [Partial pressure] Normal [facility] Comment on above: Order Comment: Speci men Type: VENOUS BLOOD SPECIMENOrdering Facility: [facility] Address: [address] [place] [address] Performed By: #### 2 4344-4 ####[place] [facility]ORYCOP[facility] [id number] [facility] RESP[facility] [id number] [address] [address] HCO3 (Bld) [Moles/Vol] 23 mmol/L Low 24-28 [facility] Comment on above: Order Comment: Speci men Type: VENOUS BLOOD SPECIMENOrdering Facility: [facility] Address: [address] Performed By: #### 2 4344-4 ####[place] [facility]ORYCOP[facility] [id number] [facility]OS[facility] RESPIR[facility] [id number] [address] Hemoglobin (Bld) [Mass/Vol] 13.0 g/dL Normal 11.5-15.5 [facility] Comment on above: Order Comment: Speci men Type: VENOUS BLOOD SPECIMENOrdering Facility: [facility] Address: [address] Performed By: #### 2 4344-4 ####[place] [facility]ORYCOP[facility] [id number] HOSP[facility] RESPIRATORY [id number] [address] Lactate [Moles/Vol] 1.2 mmol/L Normal 0.5-2.2 [facility] Comment on above: Order Comment: Speci men Type: VENOUS BLOOD SPECIMENOrdering Facility: [facility] Address: [address] Performed By: #### 2 4344-4 ####[facility] [id number] HOSPITAL RESPIRATORY [id number] [address] Methemoglobin (Bld) [Mass fraction] % Normal 0.0-1.5 [facility] Comment on above: Order Comment: Speci men Type: VENOUS BLOOD SPECIMENOrdering Facility: [facility] Address: [address] Performed By: #### 2 4344-4 ####[place] [facility]ORYCOP[facility] [id number] [facility]OSP[facility] RESPIRATORY [id number] [address] [address] O2 THERAPY RA=Room Air Normal [facility] Comment on above: Order Comment: Speci men Type: VENOUS BLOOD SPECIMENOrdering Facility: [facility] Address: [address] Performed By: #### 2 4344-4 ####[facility] RESPIRATORYCLIA [id number] [facility]OS[facility] RESPIRATORY [id number] [address] Oxygen (BldV) [Partial pressure] 34 mm[Hg] Low 35-45 [facility] Comment on above: Order Comment: Speci men Type: VENOUS BLOOD SPECIMENOrdering Facility: [facility] Address: [address] [place] [address] Performed By: #### 2 4344-4 ####[facility] RESPIRATORYCLIA [id number] [facility]OSP[facility] RESPIRATORY [id number] [address] Oxygen adjusted to patient's actual temperature (BldV) [Partial pressure] Normal [facility] Comment on above: Order Comment: Speci men Type: VENOUS BLOOD SPECIMENOrdering Facility: [facility] Address: [address] [place] [address] Performed By: #### 2 4344-4 ####[facility] RESPIRATORYCLIA [id number] [facility]OSPITAL RESP[facility] [id number] [address] [address] Oxyhemoglobin (BldV) [Mass fraction] 63 % Normal 60-85 [facility] Comment on above: Order Comment: Speci men Type: VENOUS BLOOD SPECIMENOrdering Facility: [facility] Address: [address] [place] [address] Performed By: #### 2 4344-4 ####[facility] RESPIRATORYCLIA [id number] [facility] RESPIRAT[facility] [id number] [address] pH (BldV) 7.33 [pH] Normal 7.32-7.42 [facility] Comment on above: Order Comment: Speci men Type: VENOUS BLOOD SPECIMENOrdering Facility: [facility] Address: [address] [place] [address] Performed By: #### 2 4344-4 ####[facility] RESPIRATORYCLIA [id number] [facility]OS[facility] RESPIR[facility]ORY [id number] [address] [address] pH adjusted to patient's actual temperature (BldV) Normal [facility] Comment on above: Order Comment: Speci men Type: VENOUS BLOOD SPECIMENOrdering Facility: [facility] Address: [address] [place] [address] Performed By: #### 2 4344-4 ####[place] RESPIRATORYIA [id number] [facility]OSP[facility] RESPIRATORY [id number] [place] [address] Potassium [Moles/Vol] 3.4 mmol/L Low 3.5-5.0 [facility] Comment on above: Order Comment: Keyur men Type: VENOUS BLOOD SPECIMENOrdering Facility: [facility] Address: [address] [place], [place] [address] Performed By: #### 2 4344-4 ####[place] [facility]ORYCOP[facility] [id number] [facility]OS[facility] RESPIRATORY [id number] [place] [address] HCG Preg Ur Qlon 04-02-2022 HCG ( test) Ql (U) Negative Normal Negative [facility] Comment on above: Order Comment: [facility] Type: URINE SPECIMENOrdering Facility: [facility] Address: [address] [place], [place] [address] Result Comment: This test is intended to aid in the early detection of . Very dilute urine samples, as indicated by a low specific gravity, may not contain pharmacy sales representative levels of hCG. This test detects intact hCG only. This test does not reliably detect hCG degradation products, including free-beta subunit and beta-core fragment. Therefore, this test may show reduced reactivity in urine after 8 weeks gestation. A number of conditions other than , including trophoblastic disease and certain non-trophoblastic neoplasms cause elevated levels of hCG. As with any assay employing mouse antibodies, the possibility exists for interference by human anti-mouse antibodies (HAMA) in the specimen. The test provides a presumptive diagnosis for . Performed By: #### 2 106-3 ####[place] LABORATORYCLIA [id number] [place], [place] [id number] [place] [address] OF [facility] HbA1c (Bld)on 04-02-2022 Average glucose Estimated from glycated hemoglobin (Bld) [Mass/Vol] 266 mg/dL Normal [facility] Comment on above: Order Comment: Keyuri men Type: BLOOD SPECIMENOrdering Facility: [facility] Address: [address] Result Comment: eAG: (Estimated average glucose) is a calculated value from HgbA1c and is pharmacy sales representative of the average blood glucose level in the last 2-3 month period. Performed By: #### 5 5454-3 ####[facility] LABCLIA [id number] [place] [address] [place] HbA1c (Bld) [Mass fraction] 10.9 % High 4.3-5.6 [facility] Comment on above: Order Comment: Speci men Type: BLOOD SPECIMENOrdering Facility: [facility] Address: [address] [place] [address] Result Comment: [place] Diabetes Association guidelines indicate that patients with HgbA1c in the range 5.7-6.4% are at increased risk for development of diabetes, and intervention by lifestyle modification may be beneficial. HgbA1c greater or equal to 6.5% is considered diagnostic of diabetes. Performed By: #### 5 5454-3 ####[facility] LABCLIA [id number] [place] [address] [place] KETONES/ACETONE/BHBon 2021 Beta hydroxybutyrate [Moles/Vol] 2.31 mmol/L High <0.28 [facility] Comment on above: Order Comment: Reginald men Type: BLOOD SPECIMENOrdering Facility: [facility] Address: [address] Performed By: #### [place], [address]-6 ####[facility] LABORATORYCLIA [id number] [place] [address] [place] Beta hydroxybutyrate [Moles/Vol] 2.44 mmol/L High <0.28 [facility] Comment on above: Order Comment: Keyuri men Type: BLOOD SPECIMENOrdering Facility: [facility] Address: [address] Performed By: #### 2 4323-8, 61502-7, 3040-3, BHB ####[facility] LABORATORYCLIA [id number] [place] [address] [place] Lipase SerPl-cCncon 04-02-20 22 Lipase [Catalytic activity/Vol] 7 U/L Low 16-61 [facility] Comment on above: Order Comment: Speci men Type: BLOOD SPECIMENOrdering Facility: [facility] Address: [address] [place] [address] Performed By: #### 2 4323-8, 00145-8, 0-3, B ####[place] LABORATORYCLIA [id number] [place] [address] [place] Magnesium SerPl-mCncon 04-02 Magnesium [Mass/Vol] 1.7 mg/dL Normal 1.7-2.3 [facility] Comment on above: Order Comment: Speci men Type: BLOOD SPECIMENOrdering Facility: [facility] Address: [address] [place] [address] Performed By: #### 2 4323-8, 06873-2, 0-3, B ####[place] LABORATORYCLIA [id number] [address] [place] URINALYSIS, REFLEX MICROSCOP ICon 04-02-2022 Bacteria LM.HPF (Urine sed) [#/Area] Moderate Abnormal None Seen [facility] Comment on above: Order Comment: Speci men Type: URINE SPECIMENOrdering Facility: [facility] Address: [address] [place] [address] Performed By: #### L [id number] ####[place] LABORATORYCLIA [id number] [address] [place] Bilirubin Ql (U) 3+ Abnormal Negative [facility] Comment on above: Order Comment: Speci men Type: URINE SPECIMENOrdering Facility: [facility] Address: [address] [place] [address] Result Comment: Sugg est correlation with clinical findings and serum bilirubin if clinically indicated. Performed By: #### L [id number] ####[place] LABORATORYCLIA [id number] [address] [place] Clarity (Unsp spec) Clear Normal Clear [facility] Comment on above: Order Comment: Speci men Type: URINE SPECIMENOrdering Facility: [facility] Address: [address] [place] [address] Performed By: #### L [id number] ####[facility] LABORATORYCLIA [id number] [address] Color (U) Yellow Normal Yellow [facility] Comment on above: Order Comment: Speci men Type: URINE SPECIMENOrdering Facility: [facility] Address: [address] [place] [address] Performed By: #### L [id number] ####[facility] LABORATORYCLIA [id number] [address] Epithelial cells LM.HPF (Urine sed) [#/Area] Moderate Normal [facility] Comment on above: Order Comment: Speci men Type: URINE SPECIMENOrdering Facility: [facility] Address: [address] [place] [address] Performed By: #### L [id number] ####[facility] LABORATORYCLIA [id number] [address] Glucose Test strip (U) [Mass/Vol] 2+ Abnormal Negative [facility] Comment on above: Order Comment: Speci men Type: URINE SPECIMENOrdering Facility: [facility] Address: [address] [place] [address] Performed By: #### L [id number] ####[facility] LABORATORYCLIA [id number] [address] Hemoglobin Ql (U) Trace Abnormal Negative [facility] Comment on above: Order Comment: Speci men Type: URINE SPECIMENOrdering Facility: [facility] Address: [address] [place] [address] Performed By: #### L [id number] ####[facility] LABORATORYCLIA [id number] [address] [place] Hyaline casts (Urine sed) [#/Area] 1-3 /LPF Abnormal 0 /LPF [facility] Comment on above: Order Comment: Speci men Type: URINE SPECIMENOrdering Facility: [facility] Address: [address] [place] [address] Performed By: #### L [id number] ####[facility] LABORATORYCLIA [id number] [address] Ketones Ql (U) 3+ Abnormal Negative [facility] Comment on above: Order Comment: Speci men Type: URINE SPECIMENOrdering Facility: [facility] Address: [address] [place] [address] Performed By: #### L [id number] ####[facility] LABORATORYCLIA [id number] [address] [place] Leukocyte esterase Test strip Ql (U) 1+ Abnormal Negative [facility] Comment on above: Order Comment: Speci men Type: URINE SPECIMENOrdering Facility: [facility] Address: [address] [place] [address] Performed By: #### L [id number] ####[facility] LABORATORYCLIA [id number] [address] [place] Nitrite Ql (U) Negative Normal Negative [facility] Comment on above: Order Comment: Speci men Type: URINE SPECIMENOrdering Facility: [facility] Address: [address] [place] [address] Performed By: #### L [id number] ####[facility] LABORATORYCLIA [id number] [address] [place] pH (U) 6.0 [pH] Normal 5.0-8.0 [facility] Comment on above: Order Comment: Speci men Type: URINE SPECIMENOrdering Facility: [facility] Address: [address] [place] [address] Performed By: #### L [id number] ####[facility] LABORATORYCLIA [id number] [address] Protein (U) [Mass/Vol] 2+ Abnormal Negative [facility] Comment on above: Order Comment: Speci men Type: URINE SPECIMENOrdering Facility: [facility] Address: [address] [place] [address] Performed By: #### L [id number] ####[facility] LABORATORYCLIA [id number] [place] [address] [place] RBC LM.HPF (Urine sed) [#/Area] 0-3 /HPF Normal 0-3 /HPF [facility] Comment on above: Order Comment: Speci men Type: URINE SPECIMENOrdering Facility: [facility] Address: [address] [place] [address] Performed By: #### L [id number] ####[place] [facility]ORATORYCLIA [id number] [address] [place] Specific gravity (U) [Rel density] >=1.030 High 1.005-1.030 [facility] Comment on above: Order Comment: Speci men Type: URINE SPECIMENOrdering Facility: [facility] Address: [address] [place] [address] Performed By: #### L [id number] ####[facility] LABORATORYCLIA [id number] [address] [place] Urobilinogen Ql (U) 0.2 EU/dL Normal 0.2-1.0 EU/dL [facility] Comment on above: Order Comment: Speci men Type: URINE SPECIMENOrdering Facility: [facility] Address: [address] [place] [address] Performed By: #### L [id number] ####[facility] LABORATORYCLIA [id number] [address] WBC LM.HPF (Urine sed) [#/Area] 6-10 /HPF Abnormal 0-5 /HPF [facility] Comment on above: Order Comment: Speci men Type: URINE SPECIMENOrdering Facility: [facility] Address: [address] [place] [address] Performed By: #### L [id number] ####[facility] LABORATORYCLIA [id number] [address] Absolute lymphocyte counton 03-11-2022 Lymphocytes Auto (Unsp spec) [#/Vol] 2.68 10*3/uL 0.83-4.51 [facility] Work Phone: Basophil percentageon 2021 Basophils/100 WBC (Bld) 1.1 % 0-1 [facility] Work Phone: [phone] Chloride [Moles/Vol] 110 mmol/L 98-[address] [facility] Work Phone: Eosinophils/100 WBC (Bld) 2.1 % 0-5 [facility] Work Phone: Glucose [Mass/Vol] 293 mg/dL 74-106 [facility] Work Phone: Comment on above: Glucose result great er than or equal to 200 mg/dLsuggests DIABETES MELLITUS per A.D.A. criteria. Neutrophils (Bld) [#/Vol] 2.8 10*3/uL 2.0-7.7 [facility] Work Phone: [phone] Neutrophils/100 WBC (Bld) 45.4 % 47-70 [facility] Work Phone: Potassium [Moles/Vol] 3.9 mmol/L 3.5-5.1 [facility] Work Phone: Sodium [Moles/Vol] 137 mmol/L 136-145 [facility] Work Phone: [phone] WBC (Bld) [#/Vol] 6.1 10*3/uL 4.4-11.0 [facility] Work Phone: Blood erythrocytes count (nu mber/volume)on 03-11-2022 RBC (Bld) [#/Vol] 4.25 10*6/uL 4.2-5.4 [facility] Blood hemoglobin measurement (mass/volume)on 03-11-2022 Hemoglobin (Bld) [Mass/Vol] 12.4 g/dL 12.0-15.0 [facility] Work Phone: [phone] Blood lymphocytes/100 leukoc yteson 03-11-2022 Lymphocytes/100 WBC (Bld) 43.7 % 19-41 [facility] Work Phone: Blood monocytes/100 leukocyt eson 03-11-2022 Monocytes/100 WBC (Bld) 6.4 % 0-10 [facility] Work Phone: Blood platelet mean volumeon 03-11-2022 Platelet mean volume (Bld) [Entitic vol] 9.4 fL 6.2-12.0 [facility] Work Phone: Determination of erythrocyte mean corpuscular volume (MCV)on 03-11-2022 MCV (RBC) [Entitic vol] 90.1 fL 81-99 [facility] Work Phone: Hematocrit Auto (Bld) [Volum e fraction]on 03-11-2022 Hematocrit (Bld) [Volume fraction] 38.3 % 37-47 [facility] Work Phone: Laboratory - Chemistry and C hemistry - challengeon 03-11-2022 CO2 [Moles/Vol] 20.0 mmol/L 21.0-32.0 [facility] Work Phone: Free T4 [Mass/Vol] 1.16 ng/dL 0.76-1.46 [facility] Work Phone: Urea nitrogen/Creatinine [Mass ratio] 11.3 mg/mg 10-20 [facility] Work Phone: Laboratory - Hematology and Cell countson 03-11-2022 Erythrocyte distribution width (RBC) [Entitic vol] 42.7 fL 35.1-43.9 [facility] Work Phone: Erythrocyte distribution width (RBC) [Ratio] 13.0 % 11.6-14.6 [facility] Work Phone: Immature granulocytes/100 WBC (Bld) 1.300 % 0.0-0.9 [facility] Work Phone: Comment on above: IG% - Immature Granu locytes (promyelocytes, myelocytes and metamyelocytes) > 1% indicates that a LEFT SHIFT is Present. MCH (RBC) [Entitic mass] 29.2 pg 27.0-32.0 [facility] Work Phone: Nucleated RBC/100 WBC (Bld) [Ratio] 0 % 0-5 [facility] Work Phone: MCHC Auto (RBC) [Mass/Vol]on 03-11-2022 MCHC (RBC) [Mass/Vol] 32.4 g/dL 32-36 [facility] Work Phone: No Panel Informationon 03-11 Estimated Creatinine Clearance Calc 130.57 ml/min [facility] Work Phone: Estimated GFR (MDRD) Amer 183 mL/min >60 [facility] Work Phone: Comment on above: GFR Calc Estimated GFR (MDRD) Non-Af Amer 151 mL/min >60 [facility] Work Phone: Comment on above: Non- GFR Calc Thyroid Stimulating Hormone (TSH) 1.61 uIU/mL 0.358-3.74 [facility] Work Phone: Platelets bldon 03-11-2022 Platelets (Bld) [#/Vol] 319 10*3/uL 150-450 [facility] Work Phone: Serum or plasma calcium liana urement (mass/volume)on 03-11-2022 Calcium [Mass/Vol] 8.5 mg/dL 8.5-10.1 [facility] Work Phone: Serum or plasma creatinine m easurement (mass/volume)on 03-11-2022 Creatinine [Mass/Vol] 0.53 mg/dL 0.55-1.02 [facility] Work Phone: Comment on above: The validity of the calculated GFR & GFRAA in patients over 70 years has not been determined. Clinical correlation is essential. Serum or plasma urea nitroge n measurement (mass/volume)on 03-11-2022 Urea nitrogen [Mass/Vol] 6 mg/dL 7-18 [facility] Work Phone: Thin prep Papanicolaou smear with manual screeningon 03-11-2022 Thin prep Papanicolaou smear with manual screening 7 5-15 [facility] Work Phone: Basophil percentageon 2021 Chloride [Moles/Vol] 108 mmol/L 98-[address] [facility] [address] [facility] Work Phone: Glucose [Mass/Vol] 427 mg/dL 74-106 [facility] Work Phone: Comment on above: Glucose result great er than or equal to 200 mg/dLsuggests DIABETES MELLITUS per A.D.A. criteria. Potassium [Moles/Vol] 4.4 mmol/L 3.5-5.1 [facility] Work Phone: Sodium [Moles/Vol] 137 mmol/L 136-145 [facility] Work Phone: Glucose Glucometer (BldC) [M ass/Vol]on 03-10-2022 Glucose [Mass/Vol] 354 mg/dL 74-106 [facility] Work Phone: Comment on above: MANAGEMENT OF PATIEN T CARE PER NURSING PROTOCOL Glucose [Mass/Vol] 398 mg/dL 74-106 [facility] Work Phone: Comment on above: MANAGEMENT OF PATIEN T CARE PER NURSING PROTOCOL Laboratory - Chemistry and C hemistry - challengeon 03-10-2022 CO2 [Moles/Vol] 9.0 mmol/L 21.0-32.0 [facility] Work Phone: Comment on above: Critical Result(s) C alled at: 01:28:42 03/10/2022 by: AVIS Lamb RN ICU. Results read back by same. Urea nitrogen/Creatinine [Mass ratio] 10.1 mg/mg 10-20 [facility] Work Phone: No Panel Informationon 03-10 Estimated Creatinine Clearance Calc 100.29 ml/min [facility] Work Phone: Estimated GFR (MDRD) Amer 135 mL/min >60 [facility] Work Phone: Comment on above: GFR Calc Estimated GFR (MDRD) Non-Af Amer 112 mL/min >60 [facility] Work Phone: Comment on above: Non- GFR Calc Serum or plasma calcium liana urement (mass/volume)on 03-10-2022 Calcium [Mass/Vol] 8.2 mg/dL 8.5-10.1 [facility] Work Phone: Serum or plasma creatinine m easurement (mass/volume)on 03-10-2022 Creatinine [Mass/Vol] 0.69 mg/dL 0.55-1.[address] [facility] Work Phone: Comment on above: The validity of the calculated GFR & GFRAA in patients over 70 years has not been determined. Clinical correlation is essential. Serum or plasma urea nitroge n measurement (mass/volume)on 03-10-2022 Urea nitrogen [Mass/Vol] 7 mg/dL 7-18 [facility] Work Phone: Thin prep Papanicolaou smear with manual screeningon 03-10-2022 Thin prep Papanicolaou smear with manual screening 20 5-15 [facility] Work Phone: Whole blood hemoglobin A1c/t otal hemoglobin ratio (mass fraction)on 03-10-2022 HbA1c (Bld) [Mass fraction] 11.5 % 3.8-5.6 [facility] Work Phone: Comment on above: Normal < 5.7 % Predi abetic 5.7 - 6.4 % Diabetic >or= 6.5 % Please note range changes. Absolute lymphocyte counton 03-09-2022 Lymphocytes Auto (Unsp spec) [#/Vol] 2.12 10*3/uL 0.83-4.51 [facility] Work Phone: Basophil percentageon 2021 Basophil percentage 0-5 SEEN /hpf [facility] Work Phone: Basophil percentage 3.3 mg/dL 2.5-4.9 [facility] Work Phone: Basophils/100 WBC (Bld) 1.2 % 0-1 [facility] Work Phone: Eosinophils/100 WBC (Bld) 0.3 % 0-5 [facility] Work Phone: Neutrophils (Bld) [#/Vol] 8.0 10*3/uL 2.0-7.7 [facility] Work Phone: Neutrophils/100 WBC (Bld) 72.8 % 47-70 [facility] Work Phone: WBC (Bld) [#/Vol] 10.9 10*3/uL 4.4-11.0 [facility] Work Phone: Beta hCG serum qualon 2021 Beta HCG ( test) Ql Negative [facility] Work Phone: Bilirubin Test strip Ql (U)o n 03-09-2022 Bilirubin Ql (U) Negative Negative [facility] Work Phone: Blood erythrocytes count (nu mber/volume)on 03-09-2022 RBC (Bld) [#/Vol] 5.42 10*6/uL 4.2-5.4 [facility] Work Phone: Blood hemoglobin measurement (mass/volume)on 03-09-2022 Hemoglobin (Bld) [Mass/Vol] 16.1 g/dL 12.0-15.0 [facility] Work Phone: [phone] Blood lymphocytes/100 leukoc yteson 03-09-2022 Lymphocytes/100 WBC (Bld) 19.4 % 19-41 [facility] Work Phone: Blood monocytes/100 leukocyt eson 03-09-2022 Monocytes/100 WBC (Bld) 5.0 % 0-10 [facility] Work Phone: Blood platelet mean volumeon 03-09-2022 Platelet mean volume (Bld) [Entitic vol] 9.5 fL 6.2-12.0 [facility] Work Phone: Determination of erythrocyte mean corpuscular volume (MCV)on 03-09-2022 MCV (RBC) [Entitic vol] 87.1 fL 81-99 [facility] Work Phone: HCO3 (BldA) [Moles/Vol]on HCO3 (Bld) [Moles/Vol] 16 mmol/L 22- [facility] Work Phone: Hematocrit Auto (Bld) [Volum e fraction]on 03-09-2022 Hematocrit (Bld) [Volume fraction] 47.2 % 37-47 [facility] Work Phone: Ketones Test strip Ql (U)on 03-09-2022 Ketones Ql (U) 150 mg/dl Negative [facility] Work Phone: Comment on above: CRITICAL VALUE *HCRI TICAL VALUE VERIFIED. CALLED TO DOROTHY PRIETO03/09/22 [id number] Concha Cosby.RESULTS READ BACK BY SAME . Laboratory - Chemistry and C hemistry - challengeon 03-09-2022 CO2 [Moles/Vol] 17 mmol/L 23-33 [facility] Work Phone: Magnesium [Mass/Vol] 2.2 mg/dL 1.6-2.6 [facility] Work Phone: Laboratory - Hematology and Cell countson 03-09-2022 Erythrocyte distribution width (RBC) [Entitic vol] 40.4 fL 35.1-43.9 [facility] Work Phone: Erythrocyte distribution width (RBC) [Ratio] 12.9 % 11.6-14.6 [facility] Work Phone: Immature granulocytes/100 WBC (Bld) 1.300 % 0.0-0.9 [facility] Work Phone: Comment on above: IG% - Immature Granu locytes (promyelocytes, myelocytes and metamyelocytes) > 1% indicates that a LEFT SHIFT is Present. MCH (RBC) [Entitic mass] 29.7 pg 27.0-32.0 [facility] Work Phone: Nucleated RBC/100 WBC (Bld) [Ratio] 0 % 0-5 [facility] Work Phone: MCHC Auto (RBC) [Mass/Vol]on 03-09-2022 MCHC (RBC) [Mass/Vol] 34.1 g/dL 32-36 [facility] Work Phone: Mucus LM Ql (Urine sed)on Mucus Ql (Urine sed) 0 SEEN /hpf [facility] Work Phone: Nitrite Test strip Ql (U)on 03-09-2022 Nitrite Ql (U) Negative Negative [facility] Work Phone: No Panel Informationon 03-09 Bed Mix Venous Bld PCO2 at Pat Temp 29.2 mmHg 41-51 [facility] Work Phone: Blood Gas Specimen Type MICHAEL [facility] Work Phone: Venous Blood Base Excess -10 mmol/L -1.0-3.5 [facility] Work Phone: Troponin I High Sensitivity 11 pg/mL 3.0-54.0 [facility] Work Phone: Comment on above: Please Note: [place] t Units and Gender Specific Reference Ranges. For more information see Policy Stat Procedure [place] High Sensitivity Troponin (TNIH) and attachments. PO2 venouson 03-09-2022 Oxygen (BldV) [Partial pressure] 41 mm[Hg] 25-40 [facility] Work Phone: Platelets bldon 03-09-2022 Platelets (Bld) [#/Vol] 588 10*3/uL 150-450 [facility] Work Phone: Protein Test strip Ql (U)on 03-09-2022 Protein Ql (U) 100 mg/dl Negative [facility] Work Phone: Serum or plasma acetone liana urement (mass/volume)on 03-09-2022 Acetone [Mass/Vol] MODERATE NEG [facility] Work Phone: Squamous epithelial cells de tection in urine sediment by light microscopyon 03-09-2022 Epithelial cells.squamous LM Ql (Urine sed) 0-5 SEEN /hpf [facility] Work Phone: Thin prep Papanicolaou smear with manual screeningon 03-09-2022 Thin prep Papanicolaou smear with manual screening 311 mOsm/KG 275-295 [facility] Work Phone: Urine blood detectionon 02-18 RBC Ql (U) Negative Negative [facility] Work Phone: RBC Ql (U) 0 SEEN /hpf [facility] Work Phone: Urine clarityon 03-09-2022 Clarity (U) Clear Clear [facility] Work Phone: Urine color determinationon 03-09-2022 Color (U) Yellow Yellow [facility] Work Phone: Urine glucose detectionon Glucose Ql (U) 1000 mg/dl Normal [facility] Work Phone: Urine leukocyte esterase det ection by dipstickon 03-09-2022 Leukocyte esterase Test strip Ql (U) 100 /ul Negative [facility] Work Phone: Urine pHon 03-09-2022 pH (U) 5.0 [pH] [facility] Work Phone: Urine sediment bacteria coun t by microscopy (number/high power field)on 03-09-2022 Bacteria LM.HPF (Urine sed) [#/Area] 1 /[HPF] None Seen [facility] Work Phone: Urine specific gravity measu rementon 03-09-2022 Specific gravity (U) [Rel density] 1.025 [facility] Work Phone: Urobilinogen Auto test strip Ql (U)on 03-09-2022 Urobilinogen Ql (U) Normal mg/dl Normal [facility] Work Phone: Vital signson 03-09-2022 Oxygen saturation in Blood 75 % 50-70 [facility] Work Phone: pH measurementon 03-09-2022 pH (Unsp spec) 7.34 [pH] 7.32-7.42 [facility] Work Phone: Glucose Glucometer (BldC) [M ass/Vol]on 02-08-2022 Glucose [Mass/Vol] 205 mg/dL 74-106 [facility] Work Phone: Comment on above: MANAGEMENT OF PATIEN T CARE PER NURSING PROTOCOL Absolute lymphocyte counton 02-07-2022 Lymphocytes Auto (Unsp spec) [#/Vol] 2.72 10*3/uL 0.83-4.51 [facility] Work Phone: Basophil percentageon 2021 Chloride [Moles/Vol] 109 mmol/L 98-[address] [facility] Work [facility]: Glucose [Mass/Vol] 245 mg/dL 74-106 [facility] Work Phone: Comment on above: Glucose result great er than or equal to 200 mg/dLsuggests DIABETES MELLITUS per A.D.A. criteria. Potassium [Moles/Vol] 4.0 mmol/L 3.5-5.1 [facility] Work Phone: Sodium [Moles/Vol] 137 mmol/L 136-145 [facility] Work Phone: Basophils/100 WBC (Bld) 0.7 % 0-1 [facility] Work Phone: Eosinophils/100 WBC (Bld) 0.7 % 0-5 [facility] Work Phone: Neutrophils (Bld) [#/Vol] 4.8 10*3/uL 2.0-7.7 [facility] Work Phone: Neutrophils/100 WBC (Bld) 57.3 % 47-70 [facility] Work Phone: [phone] WBC (Bld) [#/Vol] 8.4 10*3/uL 4.4-11.0 [facility] Work Phone: Blood erythrocytes count (nu mber/volume)on 02-07-2022 RBC (Bld) [#/Vol] 4.28 10*6/uL 4.2-5.4 [facility] Work Phone: Blood hemoglobin measurement (mass/volume)on 02-07-2022 Hemoglobin (Bld) [Mass/Vol] 12.3 g/dL 12.0-15.0 [facility] Work Phone: Blood lymphocytes/100 leukoc yteson 02-07-2022 Lymphocytes/100 WBC (Bld) 32.3 % 19-41 [facility] Work Phone: Blood monocytes/100 leukocyt eson 02-07-2022 Monocytes/100 WBC (Bld) 8.4 % 0-10 [facility] Work Phone: Blood platelet mean volumeon 02-07-2022 Platelet mean volume (Bld) [Entitic vol] 9.0 fL 6.2-12.0 [facility] Work Phone: Determination of erythrocyte mean corpuscular volume (MCV)on 02-07-2022 MCV (RBC) [Entitic vol] 87.9 fL 81-99 [facility] Work Phone: Hematocrit Auto (Bld) [Volum e fraction]on 02-07-2022 Hematocrit (Bld) [Volume fraction] 37.6 % 37-47 [facility] Work Phone: Laboratory - Chemistry and C hemistry - challengeon 02-07-2022 CO2 [Moles/Vol] 20.0 mmol/L 21.0-32.0 [facility] Work Phone: Urea nitrogen/Creatinine [Mass ratio] 5.0 mg/mg 10-20 [facility] Work Phone: Laboratory - Hematology and Cell countson 02-07-2022 Erythrocyte distribution width (RBC) [Entitic vol] 42.8 fL 35.1-43.9 [facility] Work Phone: Erythrocyte distribution width (RBC) [Ratio] 13.4 % 11.6-14.6 [facility] Work Phone: Immature granulocytes/100 WBC (Bld) 0.600 % 0.0-0.9 [facility] Work Phone: Comment on above: IG% - Immature Granu locytes (promyelocytes, myelocytes and metamyelocytes) > 1% indicates that a LEFT SHIFT is Present. MCH (RBC) [Entitic mass] 28.7 pg 27.0-32.0 [facility] Work Phone: Nucleated RBC/100 WBC (Bld) [Ratio] 0 % 0-5 [facility] Work Phone: MCHC Auto (RBC) [Mass/Vol]on 02-07-2022 MCHC (RBC) [Mass/Vol] 32.7 g/dL 32-36 [facility] Work Phone: No Panel Informationon 02-07 Estimated Creatinine Clearance Calc 81.51 ml/min [facility] Work Phone: Estimated GFR (MDRD) Amer 113 mL/min >60 [facility] Work Phone: Comment on above: GFR Calc Estimated GFR (MDRD) Non-Af Amer 93 mL/min >60 [facility] Work Phone: Comment on above: Non- GFR Calc Platelets bldon 02-07-2022 Platelets (Bld) [#/Vol] 352 10*3/uL 150-450 [facility] Work Phone: Serum or plasma calcium liana urement (mass/volume)on 02-07-2022 Calcium [Mass/Vol] 8.6 mg/dL 8.5-10.1 [facility] Work Phone: Serum or plasma creatinine m easurement (mass/volume)on 02-07-2022 Creatinine [Mass/Vol] 0.81 mg/dL 0.55-1.02 [facility] Work Phone: Comment on above: The validity of the calculated GFR & GFRAA in patients over 70 years has not been determined. Clinical correlation is essential. Serum or plasma urea nitroge n measurement (mass/volume)on 02-07-2022 Urea nitrogen [Mass/Vol] 4 mg/dL 7-18 [facility] Work Phone: Thin prep Papanicolaou smear with manual screeningon 02-07-2022 Thin prep Papanicolaou smear with manual screening 8 5-15 [facility] Work Phone: Basophil percentageon 2021 Basophil percentage 2.4 mg/dL 2.5-4.9 [facility] Work Phone: Laboratory - Chemistry and C hemistry - challengeon 02-06-2022 Magnesium [Mass/Vol] 2.3 mg/dL 1.6-2.6 [facility] Work Phone: Serum or plasma acetone liana urement (mass/volume)on 02-06-2022 Acetone [Mass/Vol] LARGE NEG [facility] Work Phone: Basophil percentageon 2021 Basophil percentage 10-25 SEEN /hpf [facility] Work Phone: Bilirubin [Mass/Vol] 0.50 mg/dL 0.20-1.00 [facility] Work Phone: Comment on above: For patients on eltr ombopag therapy, use of Dimension [place] TBIL is not recommended. Protein [Mass/Vol] 8.0 g/dL 6.4-8.2 [facility] Work Phone: Beta hCG serum qualon 2021 Beta HCG ( test) Ql Negative [facility] Work Phone: Bilirubin Test strip Ql (U)o n 02-05-2022 Bilirubin Ql (U) Negative Negative [facility] Work Phone: Culture, urineon 02-05-2022 Bacteria identified Cx Nom (U) Positive [facility] Work Phone: HCO3 (BldA) [Moles/Vol]on HCO3 (Bld) [Moles/Vol] 15 mmol/L 22- [facility] Work Phone: Ketones Test strip Ql (U)on 02-05-2022 Ketones Ql (U) 150 mg/dl Negative [facility] Work Phone: Comment on above: CRITICAL VALUE *H Laboratory - Chemistry and C hemistry - challengeon 02-05-2022 CO2 [Moles/Vol] 16 mmol/L 23-33 [facility] Work Phone: ALP [Catalytic activity/Vol] 158 U/L 45-117 [facility] Work Phone: ALT [Catalytic activity/Vol] 17 U/L 13-56 [facility] Work Phone: Globulin (S) [Mass/Vol] 4.8 g/dL 2.2-4.2 [facility] Work Phone: Mucus LM Ql (Urine sed)on Mucus Ql (Urine sed) 0 SEEN /hpf [facility] Work Phone: Nitrite Test strip Ql (U)on 02-05-2022 Nitrite Ql (U) Negative Negative [facility] Work Phone: No Panel Informationon 02-05 Bed Mix Venous Bld PCO2 at Pat Temp 31.7 mmHg 41-51 [facility] Work Phone: Blood Gas Specimen Type MICHAEL [facility] Work Phone: Venous Blood Base Excess -12 mmol/L -1.0-3.5 [facility] Work Phone: PO2 venouson 02-05-2022 Oxygen (BldV) [Partial pressure] 78 mm[Hg] 25-40 [facility] Work Phone: Protein Test strip Ql (U)on 02-05-2022 Protein Ql (U) 30 mg/dl Negative [facility] Work Phone: Serum or plasma albumin liana urement (mass/volume)on 02-05-2022 Albumin [Mass/Vol] 3.2 g/dL 3.2-5.0 [facility] Work Phone: Serum or plasma albumin/glob ulin mass ratioon 02-05-2022 Albumin/Globulin [Mass ratio] 0.7 {ratio} 0.9-2.4 [facility] Work Phone: Squamous epithelial cells de tection in urine sediment by light microscopyon 02-05-2022 Epithelial cells.squamous LM Ql (Urine sed) 0-5 SEEN /hpf [facility] Work Phone: Thin prep Papanicolaou smear with manual screeningon 02-05-2022 Thin prep Papanicolaou smear with manual screening 7 U/L 15-37 [facility] Work Phone: Urine blood detectionon 01-18 RBC Ql (U) 10 /ul Negative [facility] Work Phone: RBC Ql (U) 0 SEEN /hpf [facility] Work Phone: Urine clarityon 02-05-2022 Clarity (U) Sl. Cloudy Clear [facility] Work Phone: Urine color determinationon 02-05-2022 Color (U) Yellow Yellow [facility] Work Phone: Urine glucose detectionon Glucose Ql (U) 1000 mg/dl Normal [facility] Work Phone: Urine leukocyte esterase det ection by dipstickon 02-05-2022 Leukocyte esterase Test strip Ql (U) 500 /ul Negative [facility] Work Phone: Urine pHon 02-05-2022 pH (U) 6.0 [pH] [facility] Work Phone: Urine sediment bacteria coun t by microscopy (number/high power field)on 02-05-2022 Bacteria LM.HPF (Urine sed) [#/Area] 0 /[HPF] None Seen [facility] Work Phone: Urine specific gravity measu rementon 02-05-2022 Specific gravity (U) [Rel density] 1.020 [facility] Work Phone: Urobilinogen Auto test strip Ql (U)on 02-05-2022 Urobilinogen Ql (U) Normal mg/dl Normal [facility] Work Phone: Vital signson 02-05-2022 Oxygen saturation in Blood 94 % 50-70 [facility] Work Phone: Whole blood hemoglobin A1c/t otal hemoglobin ratio (mass fraction)on 02-05-2022 HbA1c (Bld) [Mass fraction] 11.9 % 3.8-5.6 [facility] Work Phone: Comment on above: Normal < 5.7 % Predi abetic 5.7 - 6.4 % Diabetic >or= 6.5 % Please note range changes. pH measurementon 02-05-2022 pH (Unsp spec) 7.28 [pH] 7.32-7.42 [facility] Work Phone: Absolute lymphocyte counton 10-26-2021 Lymphocytes Auto (Unsp spec) [#/Vol] 1.87 10*3/uL 0.83-4.51 [facility] Work Phone: Basophil percentageon 2021 Basophils/100 WBC (Bld) 0.9 % 0-1 [facility] Work Phone: Chloride [Moles/Vol] 99 mmol/L 98-107 [facility] Work Phone: Eosinophils/100 WBC (Bld) 1.1 % 0-5 [facility] Work Phone: Glucose [Mass/Vol] 464 mg/dL 74-106 [facility] Work Phone: Comment on above: Critical Result(s) C alled at: 12:08:59 10/26/2021 by: Aga Ling to [place] . Results read back by same.Glucose result greater than or equal to 200 mg/dLsuggests DIABETES MELLITUS per A.D.A. criteria.Please note revised GLUCOSE reference range effective 2017. Neutrophils (Bld) [#/Vol] 7.7 10*3/uL 2.0-7.7 [facility] Work Phone: Neutrophils/100 WBC (Bld) 74.1 % 47-70 [facility] Work Phone: Potassium [Moles/Vol] 4.3 mmol/L 3.5-5.1 [facility] Work Phone: Sodium [Moles/Vol] 133 mmol/L 136-145 [facility] Work Phone: WBC (Bld) [#/Vol] 10.3 10*3/uL 4.4-11.0 [facility] Work Phone: Beta hCG serum qualon 2021 Beta HCG ( test) Ql Negative [facility] Work Phone: Blood erythrocytes count (nu mber/volume)on 10-26-2021 RBC (Bld) [#/Vol] 4.61 10*6/uL 4.2-5.4 [facility] Work Phone: Blood hemoglobin measurement (mass/volume)on 10-26-2021 Hemoglobin (Bld) [Mass/Vol] 12.8 g/dL 12.0-15.0 [facility] Work Phone: Blood lymphocytes/100 leukoc yteson 10-26-2021 Lymphocytes/100 WBC (Bld) 18.1 % 19-41 [facility] Work Phone: Blood monocytes/100 leukocyt eson 10-26-2021 Monocytes/100 WBC (Bld) 5.1 % 0-10 [facility] Work Phone: Blood platelet mean volumeon 10-26-2021 Platelet mean volume (Bld) [Entitic vol] 9.3 fL 6.2-12.0 [facility] Work Phone: Determination of erythrocyte mean corpuscular volume (MCV)on 10-26-2021 MCV (RBC) [Entitic vol] 82.2 fL 81-99 [facility] Work Phone: Glucose Glucometer (BldC) [M ass/Vol]on 10-26-2021 Glucose [Mass/Vol] 174 mg/dL 70-110 [facility] Work Phone: Comment on above: MANAGEMENT OF PATIEN T CARE PER NURSING PROTOCOL Hematocrit Auto (Bld) [Volum e fraction]on 10-26-2021 Hematocrit (Bld) [Volume fraction] 37.9 % 37-47 [facility] Work Phone: Laboratory - Chemistry and C hemistry - challengeon 10-26-2021 CO2 [Moles/Vol] 26.0 mmol/L 21.0-32.0 [facility] Work Phone: Urea nitrogen/Creatinine [Mass ratio] 13.7 mg/mg 10-20 [facility] Work Phone: Laboratory - Hematology and Cell countson 10-26-2021 Erythrocyte distribution width (RBC) [Entitic vol] 36.9 fL 35.1-43.9 [facility] Work Phone: Erythrocyte distribution width (RBC) [Ratio] 12.3 % 11.6-14.6 [facility] Work Phone: Immature granulocytes/100 WBC (Bld) 0.700 % 0.0-0.9 [facility] Work Phone: Comment on above: IG% - Immature Granu locytes (promyelocytes, myelocytes and metamyelocytes) > 1% indicates that a LEFT SHIFT is Present. MCH (RBC) [Entitic mass] 27.8 pg 27.0-32.0 [facility] Work Phone: Nucleated RBC/100 WBC (Bld) [Ratio] 0 % 0-5 [facility] Work Phone: MCHC Auto (RBC) [Mass/Vol]on 10-26-2021 MCHC (RBC) [Mass/Vol] 33.8 g/dL 32-36 [facility] Work Phone: No Panel Informationon 10-26 D-Dimer Quantitative (PE/DVT) <= 0.27 FEU/ug/m 0.27-0.49 [facility] Work Phone: Comment on above: NORMAL D-Dimer level (<0.50) indicates no DVT or PE. Estimated Creatinine Clearance Calc 112.86 ml/min [facility] Work Phone: Estimated GFR (MDRD) Amer 164 mL/min >60 [facility] Work Phone: Comment on above: GFR Calc Estimated GFR (MDRD) Non-Af Amer 136 mL/min >60 [facility] Work Phone: Comment on above: Non- GFR Calc Troponin I High Sensitivity 15 pg/mL 3.0-54.0 [facility] Work Phone: Comment on above: Please Note: [place] t Units and Gender Specific Reference Ranges. For more information see Policy Stat Procedure [place] High Sensitivity Troponin (TNIH) and attachments. Platelets bldon 10-26-2021 Platelets (Bld) [#/Vol] 406 10*3/uL 150-450 [facility] Work Phone: Serum or plasma calcium liana urement (mass/volume)on 10-26-2021 Calcium [Mass/Vol] 9.4 mg/dL 8.5-10.1 [facility] Work Phone: Serum or plasma creatinine m easurement (mass/volume)on 10-26-2021 Creatinine [Mass/Vol] 0.59 mg/dL 0.55-1.02 [facility] Work Phone: Comment on above: The validity of the calculated GFR & GFRAA in patients over 70 years has not been determined. Clinical correlation is essential. Serum or plasma urea nitroge n measurement (mass/volume)on 10-26-2021 Urea nitrogen [Mass/Vol] 8 mg/dL 7-18 [facility] Work Phone: Thin prep Papanicolaou smear with manual screeningon 10-26-2021 Thin prep Papanicolaou smear with manual screening 8 5-15 [facility] Work Phone: Comp Metabolic Panelon 10-04 Glucose [Mass/Vol] 605 mg/dL Critically high 70-100 [facility] Comment on above: Performed By: #### H A1C2, CMP3, LIPD2, TSH5 #### [facility] [address] [place] [address] ALP [Catalytic activity/Vol] 148 U/L High 38-126 [facility] Comment on above: Performed By: #### H A1C2, CMP3, LIPD2, TSH5 #### [facility] [address] [place] [address] ALT [Catalytic activity/Vol] 30 U/L Normal 13-69 [facility] Comment on above: Performed By: #### H A1C2, CMP3, LIPD2, TSH5 #### [facility] [address] [place] [address] Anion gap [Moles/Vol] 11 Normal [facility] Comment on above: Performed By: #### H A1C2, CMP3, LIPD2, TSH5 #### [facility] [address] [place] [address] AST [Catalytic activity/Vol] 16 U/L Normal 15-46 [facility] Comment on above: Performed By: #### H A1C2, CMP3, LIPD2, TSH5 #### [facility] [address] [place] [address] Bilirubin [Mass/Vol] 0.5 mg/dL Normal 0.2-1.3 [facility] Comment on above: Performed By: #### H A1C2, CMP3, LIPD2, TSH5 #### [facility] [address] [place] [address] Calcium [Mass/Vol] 9.7 mg/dL Normal 8.4-10.4 [facility] Comment on above: Performed By: #### H A1C2, CMP3, LIPD2, TSH5 #### [facility] [address] [place] [address] CO2 [Moles/Vol] 27 mmol/L Normal 22-30 [facility] Comment on above: Performed By: #### H A1C2, CMP3, LIPD2, TSH5 #### [facility] [address] [place] [address] Protein [Mass/Vol] 7.0 g/dL Normal 6.3-8.2 [facility] Comment on above: Performed By: #### H A1C2, CMP3, LIPD2, TSH5 #### [facility] [address] [place] [address] Urea nitrogen [Mass/Vol] 10 mg/dL Normal 7-20 [facility] Comment on above: Performed By: #### H A1C2, CMP3, LIPD2, TSH5 #### [facility] [address] [place] [address] Creatinine [Mass/Vol] 0.44 mg/dL Low 0.52-1.25 [facility] Comment on above: Performed By: #### H A1C2, CMP3, LIPD2, TSH5 #### [facility] [address] [place] [address] GFR/1.73 sq M predicted among blacks MDRD (S/P/Bld) [Vol rate/Area] mL/min/{1.73_m2} Normal >60 [facility] Comment on above: Performed By: #### H A1C2, CMP3, LIPD2, TSH5 #### [facility] [address] [place] [address] GFR/1.73 sq M predicted among non-blacks MDRD (S/P/Bld) [Vol rate/Area] mL/min/{1.73_m2} Normal >60 [facility] Comment on above: Result Comment: Sour ce- MDRD equation with creatinine calibration to IDMS(NKDEP) eGFR not recommended for drug dose adjustment Performed By: #### H A1C2, CMP3, LIPD2, TSH5 #### [facility] [address] [place] [address] Albumin [Mass/Vol] 3.9 g/dL Normal 3.5-5.0 [facility] Comment on above: Performed By: #### H A1C2, CMP3, LIPD2, TSH5 #### [facility] [address] [place] [address] Chloride [Moles/Vol] 94 mmol/L Low 98-107 [facility] Comment on above: Performed By: #### H A1C2, CMP3, LIPD2, TSH5 #### [facility] [address] [place] [address] Potassium [Moles/Vol] 5.1 mmol/L Normal 3.5-5.1 [facility] Comment on above: Performed By: #### H A1C2, CMP3, LIPD2, TSH5 #### [facility] [address] [place] [address] Sodium [Moles/Vol] 132 mmol/L Low 135-145 [facility] Comment on above: Performed By: #### H A1C2, CMP3, LIPD2, TSH5 #### [facility] [address] [place] [address] Comprehensive Metabolic Pane lOrdered By: Cody Lazaro on 10-04-2019 Albumin [Mass/Vol] 3.9 g/dL 3.5 - 5 g/dL [facility] Work Phone: [phone] ALP [Catalytic activity/Vol] 148 U/L High 38 - 126 U/L [facility] Work Phone: [phone] ALT [Catalytic activity/Vol] 30 U/L 13 - 69 U/L [facility] Work Phone: [phone] Anion gap [Moles/Vol] 11 mmol/L [facility] Work Phone: [phone] AST [Catalytic activity/Vol] 16 U/L 15 - 46 U/L [facility] Work Phone: [phone] Bilirubin [Mass/Vol] 0.5 mg/dL 0.2 - 1 .3 mg/dL [facility] Work Phone: [phone] Calcium [Mass/Vol] 9.7 mg/dL 8.4 - 10. 4 mg/dL [facility] Work Phone: [phone] Chloride [Moles/Vol] 94 mmol/L Low 98 - 10 7 mmol/L [facility] Work Phone: [phone] CO2 [Moles/Vol] 27 mmol/L 22 - 30 mmol/L [facility] Work Phone: [phone] Creatinine [Mass/Vol] 0.44 mg/dL Low 0.52 - 1.25 mg/dL [facility] Work Phone: [phone] EGFR IF NonAfrican Iraqi >60.0 >60 mL/min [facility] Work Phone: [phone] Comment on above: Source- MDRD equatio n with creatinine calibration to IDMS(NKDEP) eGFR not recommended for drug dose adjustment GFR/1.73 sq M.predicted among blacks MDRD (S/P/Bld) [Vol rate/Area] mL/min/{1.73_m2} >60 mL/min [facility] Work Phone: Glucose [Mass/Vol] 605 mg/dL Critically high 70 - 1 00 mg/dL [facility] Work Phone: [phone] Interpretation and review of laboratory results Abnormal [facility] Work Phone: Potassium [Moles/Vol] 5.1 mmol/L 3.5 - 5.1 mmol/L [facility] Work Phone: Protein [Mass/Vol] 7.0 g/dL 6.3 - 8.2 g/dL [facility] Work Phone: Sodium [Moles/Vol] 132 mmol/L Low 135 - 145 mmol/L [facility] Work Phone: Urea nitrogen [Mass/Vol] 10 mg/dL 7 - 20 mg/dL [facility] Work Phone: Test Performed by [facility], [address] , [place], [place] [id number] [place] [address] Work Phone: Microalbumin, Randomon 10-04 Microalb/Creat Ratio 409.7 mg/g High 0.0-29.9 [facility] Comment on above: Performed By: #### H A1C2, CMP3, LIPD2, TSH5 #### [facility] [address] [place] [address] Microalbumin, Ur 63.1 mg/L High 0.0-17.0 [facility] Comment on above: Result Comment: Micr oalbumin concentrations <30 are considered normal, 30-300 are considered microalbuminuria (or risk of diabetic nephropathy), and >300 are considered clinical albuminuria (clinical nephropathy). Diabetes Care,27, Supplement 1, H47-91, 2003 Performed By: #### H A1C2, CMP3, LIPD2, TSH5 #### [facility] [address] [place] [address] Creatinine, Ur Random 15.4 mg/dL Normal No Range [facility] Comment on above: Performed By: #### H A1C2, CMP3, LIPD2, TSH5 #### [facility] [address] [place] [address] Microalbumin, UrOrdered By: Cody Lazaro on 10-04-2019 Albumin/Creatinine DL <= 20 mg/L (24H U) [Mass ratio] 63.1 mg/L High 0 - 17 mg/L [facility] Work Phone: Comment on above: Microalbumin concent rations <30 are considered normal, 30-300 are considered microalbuminuria (or risk of diabetic nephropathy), and >300 are considered clinical albuminuria (clinical nephropathy). Diabetes Care,27, Supplement 1, R81-68, 2004 Albumin/Creatinine DL <= 20 mg/L (U) [Ratio] 409.7 mg/g High 0 - 29.9 mg/g [facility] Work Phone: Creatinine (U) [Mass/Vol] 15.4 mg/dL No Range [facility] Work Phone: Interpretation and review of laboratory results Abnormal [facility] Work Phone: Test Performed by [facility], [address] , [place], [place] [address] [facility] Work Phone: CR Foot Complete 3+ Views Le f[place] 06-13-2019 CR Foot Complete 3+ Views Left Patient Name: SANTIAGO JACOBSEN Diagnostic Radiology Exam Date/Time 06/12/2019 10:55:00 EDT Exam CR Foot Complete 3+ Views Left Ordering Physician YESSICA MEJIA Accession Number [id number] CPT4 Codes 95091 () Reason For Exam heel spur, foot pain Report CR Foot Complete 3+ Views Left CLINICAL INDICATION: heel spur, foot pain TECHNIQUE: 3 views of the left foot, weightbearing COMPARISON: None FINDINGS: There is a small normal variant os trigonum. No plantar spur seen. No fracture dislocation or acute bone destruction. Joint spaces are maintained. Bipartite tibial sesamoid of the first digit. IMPRESSION: 1. No acute finding. No plantar spur. Report Dictated on Final Dictating Physician: MD CLARKE JOHN R Signed Date and Time: 06/12/2019 11:24 pm Signed by: MD CLARKE JOHN R Transcribed Date and Time: 06/12/2019 11:25 Normal [facility] CR Foot Complete 3+ Views Sachi schmid 06-13-2019 CR Foot Complete 3+ Views Right Patient Name: SANTIAGO JACOBSEN Diagnostic Radiology Exam Date/Time 06/12/2019 10:55:00 EDT Exam CR Foot Complete 3+ Views Right Ordering Physician YESSICA MEJIA Accession Number [id number] CPT4 Codes 50523 () Reason For Exam heel spur, foot pain Report RIGHT FOOT THREE VIEWS CLINICAL INDICATION: heel spur, foot pain TECHNIQUE: Three views of the right foot. Images obtained weightbearing. COMPARISON: None FINDINGS: Normal variant os trigonum. No fracture, dislocation, or acute bone destruction. No plantar spur identified. Joint spaces are maintained. IMPRESSION: 1. No acute finding. No plantar spur seen. Report Dictated on Final Dictating Physician: MD CLARKE JOHN R Signed Date and Time: 06/12/2019 11:23 pm Signed by: MD CLARKE JOHN R Transcribed Date and Time: 06/12/2019 11:24 Normal [facility] XR FOOT LEFT (MIN 3 VIEWS)on 06-12-2019 Patient Name: SANTIAGO JACOBSEN ---Diagnostic Radiology--- Exam Date/Time 06/12/2019 10:55:00 EDT Exam CR Foot Complete 3+ Views Left Ordering Physician YESSICA MEJIA Accession Number [id number] CPT4 Codes 41045 () Reason For Exam heel spur, foot pain Report CR Foot Complete 3+ Views Left CLINICAL INDICATION: heel spur, foot pain TECHNIQUE: 3 views of the left foot, weightbearing COMPARISON: None FINDINGS: There is a small normal variant os trigonum. No plantar spur seen. No fracture dislocation or acute bone destruction. Joint spaces are maintained. Bipartite tibial sesamoid of the first digit. IMPRESSION: 1. No acute finding. No plantar spur. Report Dictated on --- Final --- Dictating Physician: MD CLARKE JOHN R Signed Date and Time: 06/12/2019 11:24 pm Signed by: MD CLARKE JOHN R Transcribed Date and Time: 06/12/2019 11:25 [place], [place] [facility], [facility] Incoming Radiology Results From [facility] - 06/12/2019 11:26 PM EDT Patient Name: SANTIAGO JACOBSEN ---Diagnostic Radiology--- Exam Date/Time 06/12/2019 10:55:00 EDT Exam CR Foot Complete 3+ Views Left Ordering Physician YESSICA MEJIA Accession Number [id number] CPT4 Codes 71392 () Reason For Exam heel spur, foot pain Report CR Foot Complete 3+ Views Left CLINICAL INDICATION: heel spur, foot pain TECHNIQUE: 3 views of the left foot, weightbearing COMPARISON: None FINDINGS: There is a small normal variant os trigonum. No plantar spur seen. No fracture dislocation or acute bone destruction. Joint spaces are maintained. Bipartite tibial sesamoid of the first digit. IMPRESSION: 1. No acute finding. No plantar spur. Report Dictated on --- Final --- Dictating Physician: MD CLARKE JOHN R Signed Date and Time: 06/12/2019 11:24 pm Signed by: MD CLARKE JOHN R Transcribed Date and Time: 06/12/2019 11:25 [place] XR FOOT RIGHT (MIN 3 VIEWS)o n 06-12-2019 Patient Name: SANTIAGO JACOBSEN ---Diagnostic Radiology--- Exam Date/Time 06/12/2019 10:55:00 EDT Exam CR Foot Complete 3+ Views Right Ordering Physician YESSICA MEJIA Accession Number [id number] CPT4 Codes 78560 () Reason For Exam heel spur, foot pain Report RIGHT FOOT THREE VIEWS CLINICAL INDICATION: heel spur, foot pain TECHNIQUE: Three views of the right foot. Images obtained weightbearing. COMPARISON: None FINDINGS: Normal variant os trigonum. No fracture, dislocation, or acute bone destruction. No plantar spur identified. Joint spaces are maintained. IMPRESSION: 1. No acute finding. No plantar spur seen. Report Dictated on --- Final --- Dictating Physician: MD CLARKE JOHN R Signed Date and Time: 06/12/2019 11:23 pm Signed by: MD CLARKE JOHN R Transcribed Date and Time: 06/12/2019 11:24 [place], [place], [facility] Incoming Radiology Results From [facility] - 06/12/2019 11:24 PM EDT Patient Name: SANTIAGO JACOBSEN ---Diagnostic Radiology--- Exam Date/Time 06/12/2019 10:55:00 EDT Exam CR Foot Complete 3+ Views Right Ordering Physician YESSICA MEJIA Accession Number [id number] CPT4 Codes 41871 () Reason For Exam heel spur, foot pain Report RIGHT FOOT THREE VIEWS CLINICAL INDICATION: heel spur, foot pain TECHNIQUE: Three views of the right foot. Images obtained weightbearing. COMPARISON: None FINDINGS: Normal variant os trigonum. No fracture, dislocation, or acute bone destruction. No plantar spur identified. Joint spaces are maintained. IMPRESSION: 1. No acute finding. No plantar spur seen. Report Dictated on --- Final --- Dictating Physician: MD CLARKE JOHN R Signed Date and Time: 06/12/2019 11:23 pm Signed by: MD CLARKE JOHN R Transcribed Date and Time: 06/12/2019 11:24 [facility], [place] Basic Metabolic Panelon 06-0 Anion gap [Moles/Vol] 6 Normal [facility] Comment on above: Performed By: #### H A1C2, CMP3, LIPD2, TSH5 #### [facility] [address] [place] [address] Calcium [Mass/Vol] 8.8 mg/dL Normal 8.4-10.4 [facility] Comment on above: Performed By: #### H A1C2, CMP3, LIPD2, TSH5 #### [facility] [address] [place] [address] CO2 [Moles/Vol] 27 mmol/L Normal 22-30 [facility] Comment on above: Performed By: #### H A1C2, CMP3, LIPD2, TSH5 #### [facility] [address] [place] [address] Creatinine [Mass/Vol] 0.34 mg/dL Low 0.52-1.25 [facility] Comment on above: Performed By: #### H A1C2, CMP3, LIPD2, TSH5 #### [facility] [address] [place] [address] GFR/1.73 sq M predicted among blacks MDRD (S/P/Bld) [Vol rate/Area] mL/min/{1.73_m2} Normal >60 [facility] Comment on above: Performed By: #### H A1C2, CMP3, LIPD2, TSH5 #### [facility] [address] [place] [address] GFR/1.73 sq M predicted among non-blacks MDRD (S/P/Bld) [Vol rate/Area] mL/min/{1.73_m2} Normal >60 [facility] Comment on above: Result Comment: Sour ce- MDRD equation with creatinine calibration to IDMS(NKDEP) eGFR not recommended for drug dose adjustment Performed By: #### H A1C2, CMP3, LIPD2, TSH5 #### [facility] [address] [place] [address] Glucose [Mass/Vol] 48 mg/dL Low 70-100 [facility] Comment on above: Performed By: #### H A1C2, CMP3, LIPD2, TSH5 #### [facility] [address] [place] [address] Urea nitrogen [Mass/Vol] 5 mg/dL Low 7-20 [facility] Comment on above: Performed By: #### H A1C2, CMP3, LIPD2, TSH5 #### [facility] [address] [place] [address] Chloride [Moles/Vol] 107 mmol/L Normal 98-107 [facility] Comment on above: Performed By: #### H A1C2, CMP3, LIPD2, TSH5 #### [facility] [address] [place] [address] Potassium [Moles/Vol] 3.4 mmol/L Low 3.5-5.1 [facility] Comment on above: Performed By: #### H A1C2, CMP3, LIPD2, TSH5 #### [facility] [address] [place] [address] Sodium [Moles/Vol] 141 mmol/L Normal 135-145 [facility] Comment on above: Performed By: #### H A1C2, CMP3, LIPD2, TSH5 #### [facility] [address] [place] [address] Glucose,Bedsideon 03-28-2019 Glucose [Mass/Vol] 93 mg/dL Normal 70-100 [facility] Comment on above: Result Comment: Test performed by glucose meter. Results may be 10%-15% lower than serum/plasma values. (CLIA ID [id number]) Performed By: #### H A1C2, CMP3, LIPD2, TSH5 #### [facility] [address] [place] [address] Glucose [Mass/Vol] 48 mg/dL Low 70-100 [facility] Comment on above: Result Comment: Test performed by glucose meter. Results may be 10%-15% lower than serum/plasma values. (CLIA ID [id number]) Performed By: #### H A1C2, CMP3, LIPD2, TSH5 #### [facility] [address] [place] [address] Glucose [Mass/Vol] 71 mg/dL Normal 70-100 [facility] Comment on above: Result Comment: Test performed by glucose meter. Results may be 10%-15% lower than serum/plasma values. (CLIA ID [id number]) Performed By: #### H A1C2, CMP3, LIPD2, TSH5 #### [facility] [address] [place] [address] Hemogram w/ Autodiffon 03-28 Abs Baso Cnt 0.1 10*3/uL Normal 0.0-0.2 [facility] Comment on above: Performed By: #### H A1C2, CMP3, LIPD2, TSH5 #### [facility] [address] [place] [address] Abs Neutrophile Cnt 3.8 10*3/uL Normal 1.8-7.0 [facility] Comment on above: Performed By: #### H A1C2, CMP3, LIPD2, TSH5 #### [facility] [address] [place] [address] Basophils/100 WBC (Bld) 1.0 % Normal 0.0-2.0 [facility] Comment on above: Performed By: #### H A1C2, CMP3, LIPD2, TSH5 #### [address] [address] Eosinophils (Bld) [#/Vol] 0.1 10*3/uL Normal 0.0-0.5 [facility] Comment on above: Performed By: #### H A1C2, CMP3, LIPD2, TSH5 #### [facility] [address] [place] [address] Eosinophils/100 WBC (Bld) 1.1 % Normal 1.0-6.0 [facility] Comment on above: Performed By: #### H A1C2, CMP3, LIPD2, TSH5 #### [facility] [address] [place] [address] Erythrocyte distribution width (RBC) [Ratio] 12.8 % Normal 11.5-14.5 [facility] Comment on above: Performed By: #### H A1C2, CMP3, LIPD2, TSH5 #### [facility] [address] [place] [address] Granulocytes/100 WBC (Bld) 51.7 % Normal 40.0-80.0 [facility] Comment on above: Performed By: #### H A1C2, CMP3, LIPD2, TSH5 #### [facility] [address] [place] [address] Hematocrit (Bld) [Volume fraction] 36.2 % Normal 35.0-47.0 [facility] Comment on above: Performed By: #### H A1C2, CMP3, LIPD2, TSH5 #### [facility] [address] [place] [address] Hemoglobin (Bld) [Mass/Vol] 12.3 g/dL Normal 11.7-16.0 [facility] Comment on above: Performed By: #### H A1C2, CMP3, LIPD2, TSH5 #### [facility] [address] [place] [address] Lymphocytes (Bld) [#/Vol] 2.8 10*3/uL Normal 1.0-4.3 [facility] Comment on above: Performed By: #### H A1C2, CMP3, LIPD2, TSH5 #### [address] [address] Lymphocytes/100 WBC (Bld) 37.7 % Normal 20.0-40.0 [facility] Comment on above: Performed By: #### H A1C2, CMP3, LIPD2, TSH5 #### [facility] [address] [place] [address] MCH (RBC) [Entitic mass] 30.4 pg Normal 26.0-34.0 [facility] Comment on above: Performed By: #### H A1C2, CMP3, LIPD2, TSH5 #### [address] [address] MCHC (RBC) [Mass/Vol] 34.0 % Normal 32.0-36.0 [facility] Comment on above: Performed By: #### H A1C2, CMP3, LIPD2, TSH5 #### [facility] [address] [place] [address] MCV (RBC) [Entitic vol] 89.3 fL Normal 79.0-98.0 [facility] Comment on above: Performed By: #### H A1C2, CMP3, LIPD2, TSH5 #### [address] [address] Monocytes (Bld) [#/Vol] 0.6 10*3/uL Normal 0.0-0.8 [facility] Comment on above: Performed By: #### H A1C2, CMP3, LIPD2, TSH5 #### [facility] [address] [place] [address] Monocytes/100 WBC (Bld) 8.5 % Normal 2.0-10.0 [facility] Comment on above: Performed By: #### H A1C2, CMP3, LIPD2, TSH5 #### [facility] [address] [place] [address] Platelet mean volume (Bld) [Entitic vol] 6.7 fL Low 7.4-10.4 [facility] Comment on above: Performed By: #### H A1C2, CMP3, LIPD2, TSH5 #### [facility] [address] [place] [address] Platelets (Bld) [#/Vol] 381 10*3/uL Normal 140-440 [facility] Comment on above: Performed By: #### H A1C2, CMP3, LIPD2, TSH5 #### [facility] [address] [place] [address] RBC (Bld) [#/Vol] 4.05 10*6/uL Normal 3.80-5.20 [facility] Comment on above: Performed By: #### H A1C2, CMP3, LIPD2, TSH5 #### [facility] [address] [place] [address] WBC (Bld) [#/Vol] 7.3 10*3/uL Normal 3.6-10.7 [facility] Comment on above: Performed By: #### H A1C2, CMP3, LIPD2, TSH5 #### [facility] [address] [place] [address] Basic Metabolic Panelon 06-0 -2018 Calcium [Mass/Vol] 9.1 mg/dL Normal 8.4-10.4 [facility] Comment on above: Performed By: #### H A1C2, CMP3, LIPD2, TSH5 #### [facility] [address] [place] [address] Glucose [Mass/Vol] 99 mg/dL Normal 70-100 [facility] Comment on above: Performed By: #### H A1C2, CMP3, LIPD2, TSH5 #### [facility] [address] [place] [address] Anion gap [Moles/Vol] 6 Normal [facility] Comment on above: Performed By: #### H A1C2, CMP3, LIPD2, TSH5 #### [facility] [address] [place] [address] CO2 [Moles/Vol] 24 mmol/L Normal 22-30 [facility] Comment on above: Performed By: #### H A1C2, CMP3, LIPD2, TSH5 #### [facility] [address] [place] [address] Creatinine [Mass/Vol] 0.33 mg/dL Low 0.52-1.25 [facility] Comment on above: Performed By: #### H A1C2, CMP3, LIPD2, TSH5 #### [facility] [address] [place] [address] GFR/1.73 sq M predicted among blacks MDRD (S/P/Bld) [Vol rate/Area] mL/min/{1.73_m2} Normal >60 [facility] Comment on above: Performed By: #### H A1C2, CMP3, LIPD2, TSH5 #### [facility] [address] [place] [address] GFR/1.73 sq M predicted among non-blacks MDRD (S/P/Bld) [Vol rate/Area] mL/min/{1.73_m2} Normal >60 [facility] Comment on above: Result Comment: Sour ce- MDRD equation with creatinine calibration to IDMS(NKDEP) eGFR not recommended for drug dose adjustment Performed By: #### H A1C2, CMP3, LIPD2, TSH5 #### [facility] [address] [place] [address] Urea nitrogen [Mass/Vol] 3 mg/dL Low 7-20 [facility] Comment on above: Performed By: #### H A1C2, CMP3, LIPD2, TSH5 #### [facility] [address] [place] [address] Potassium [Moles/Vol] 3.9 mmol/L Normal 3.5-5.1 [facility] Comment on above: Performed By: #### H A1C2, CMP3, LIPD2, TSH5 #### [facility] [address] [place] [address] Sodium [Moles/Vol] 138 mmol/L Normal 135-145 [facility] Comment on above: Performed By: #### H A1C2, CMP3, LIPD2, TSH5 #### [facility] [address] [place] [address] Chloride [Moles/Vol] 108 mmol/L High 98-107 [facility] Comment on above: Performed By: #### H A1C2, CMP3, LIPD2, TSH5 #### [facility] [address] [place] [address] Beta Hydroxybutyrateon 03-27 Beta Hydroxybutyrate 1.35 mg/dL Normal 0.20-2.81 [facility] Comment on above: Performed By: #### H A1C2, CMP3, LIPD2, TSH5 #### [facility] [address] [place] [address] Calcium,Ionizedon 03-27-2019 Ionized Ca,Measured 4.70 mg/dL Normal 4.30-5.20 [facility] Comment on above: Performed By: #### H A1C2, CMP3, LIPD2, TSH5 #### [facility] [address] [place] [address] pH, Ionized Calcium 7.37 Normal 7.31-7.46 [facility] Comment on above: Performed By: #### H A1C2, CMP3, LIPD2, TSH5 #### [facility] [address] [place] [address] Glucose,Bedsideon 03-27-2019 Glucose [Mass/Vol] 151 mg/dL High 70-100 [facility] Comment on above: Result Comment: Test performed by glucose meter. Results may be 10%-15% lower than serum/plasma values. (CLIA ID [id number]) Performed By: #### H A1C2, CMP3, LIPD2, TSH5 #### [facility] [address] [place] [address] Glucose [Mass/Vol] 132 mg/dL High 70-100 [facility] Comment on above: Result Comment: Test performed by glucose meter. Results may be 10%-15% lower than serum/plasma values. (CLIA ID [id number]) Performed By: #### H A1C2, CMP3, LIPD2, TSH5 #### [facility] [address] [place] [address] Glucose [Mass/Vol] 143 mg/dL High 70-100 [facility] Comment on above: Result Comment: Test performed by glucose meter. Results may be 10%-15% lower than serum/plasma values. (CLIA ID [id number]) Performed By: #### H A1C2, CMP3, LIPD2, TSH5 #### [facility] [address] [place] [address] Glucose [Mass/Vol] 135 mg/dL High 70-100 [facility] Comment on above: Result Comment: Test performed by glucose meter. Results may be 10%-15% lower than serum/plasma values. (CLIA ID [id number]) Performed By: #### H A1C2, CMP3, LIPD2, TSH5 #### [facility] [address] [place] [address] Glucose [Mass/Vol] 92 mg/dL Normal 70-100 [facility] Comment on above: Result Comment: Test performed by glucose meter. Results may be 10%-15% lower than serum/plasma values. (CLIA ID [id number]) Performed By: #### H A1C2, CMP3, LIPD2, TSH5 #### [facility] [address] [place] [address] Hepatic Functionon 9 ALP [Catalytic activity/Vol] 124 U/L Normal 38-126 [facility] Comment on above: Performed By: #### H A1C2, CMP3, LIPD2, TSH5 #### [facility] [address] [place] [address] ALT [Catalytic activity/Vol] 34 U/L Normal 13-69 [facility] Comment on above: Performed By: #### H A1C2, CMP3, LIPD2, TSH5 #### [facility] [address] [place] [address] AST [Catalytic activity/Vol] 48 U/L High 15-46 [facility] Comment on above: Performed By: #### H A1C2, CMP3, LIPD2, TSH5 #### [facility] [address] [place] [address] Bilirubin [Mass/Vol] 0.4 mg/dL Normal 0.2-1.3 [facility] Comment on above: Performed By: #### H A1C2, CMP3, LIPD2, TSH5 #### [facility] [address] [place] [address] Bilirubin.direct [Mass/Vol] 0.0 mg/dL Normal 0.0-0.3 [facility] Comment on above: Performed By: #### H A1C2, CMP3, LIPD2, TSH5 #### [facility] [address] [place] [address] Protein [Mass/Vol] 6.7 g/dL Normal 6.3-8.2 [facility] Comment on above: Performed By: #### H A1C2, CMP3, LIPD2, TSH5 #### [facility] [address] [place] [address] Albumin [Mass/Vol] 3.4 g/dL Low 3.5-5.0 [facility] Comment on above: Performed By: #### H A1C2, CMP3, LIPD2, TSH5 #### [facility] [address] [place] [address] Magnesiumon 03-27-2019 Magnesium [Mass/Vol] 1.7 mg/dL Normal 1.6-2.3 [facility] Comment on above: Performed By: #### H A1C2, CMP3, LIPD2, TSH5 #### [facility] [address] [place] [address] Phosphoruson 03-27-2019 Phosphate [Mass/Vol] 4.3 mg/dL Normal 2.5-4.5 [facility] Comment on above: Performed By: #### H A1C2, CMP3, LIPD2, TSH5 #### [facility] [address] [place] [address] Basic Metabolic Panelon Anion gap [Moles/Vol] 12 Normal [facility] Comment on above: Order Comment: Added on the [facility] 03/26/2019 17:48 Performed By: #### H A1C2, CMP3, LIPD2, TSH5 #### [facility] [address] [place] [address] Calcium [Mass/Vol] 9.0 mg/dL Normal 8.4-10.4 [facility] Comment on above: Order Comment: Added on the [facility] 03/26/2019 17:48 Performed By: #### H A1C2, CMP3, LIPD2, TSH5 #### [facility] [address] [place] [address] CO2 [Moles/Vol] 20 mmol/L Low 22-30 [facility] Comment on above: Order Comment: Added on the [facility] 03/26/2019 17:48 Performed By: #### H A1C2, CMP3, LIPD2, TSH5 #### [address] [address] Glucose [Mass/Vol] 95 mg/dL Normal 70-100 [facility] Comment on above: Order Comment: Added on the [facility] 03/26/2019 17:48 Performed By: #### H A1C2, CMP3, LIPD2, TSH5 #### [facility] [address] [place] [address] Urea nitrogen [Mass/Vol] 2 mg/dL Low 7-20 [facility] Comment on above: Order Comment: Added on the [facility] 03/26/2019 17:48 Performed By: #### H A1C2, CMP3, LIPD2, TSH5 #### [facility] [address] [place] [address] Creatinine [Mass/Vol] 0.33 mg/dL Low 0.52-1.25 [facility] Comment on above: Order Comment: Added on the [facility] 03/26/2019 17:48 Performed By: #### H A1C2, CMP3, LIPD2, TSH5 #### [facility] [address] [place] [address] GFR/1.73 sq M predicted among blacks MDRD (S/P/Bld) [Vol rate/Area] mL/min/{1.73_m2} Normal >60 [facility] Comment on above: Order Comment: Added on the [facility] 03/26/2019 17:48 Performed By: #### H A1C2, CMP3, LIPD2, TSH5 #### [facility] [address] [place] [address] GFR/1.73 sq M predicted among non-blacks MDRD (S/P/Bld) [Vol rate/Area] mL/min/{1.73_m2} Normal >60 [facility] Comment on above: Order Comment: Added on the [facility] 03/26/2019 17:48 Result Comment: Sour ce- MDRD equation with creatinine calibration to IDMS(NKDEP) eGFR not recommended for drug dose adjustment Performed By: #### H A1C2, CMP3, LIPD2, TSH5 #### [facility] [address] [place] [address] Potassium [Moles/Vol] 3.9 mmol/L Normal 3.5-5.1 [facility] Comment on above: Order Comment: Added on the [facility] 03/26/2019 17:48 Performed By: #### H A1C2, CMP3, LIPD2, TSH5 #### [facility] [address] [place] [address] Chloride [Moles/Vol] 106 mmol/L Normal 98-107 [facility] Comment on above: Order Comment: Added on the [facility] 03/26/2019 17:48 Performed By: #### H A1C2, CMP3, LIPD2, TSH5 #### [facility] [address] [place] [address] Sodium [Moles/Vol] 139 mmol/L Normal 135-145 [facility] Comment on above: Order Comment: Added on the [facility] 03/26/2019 17:48 Performed By: #### H A1C2, CMP3, LIPD2, TSH5 #### [facility] [address] [place] [address] Anion gap [Moles/Vol] 13 Normal [facility] Comment on above: Performed By: #### H A1C2, CMP3, LIPD2, TSH5 #### [facility] [address] [place] [address] Calcium [Mass/Vol] 8.7 mg/dL Normal 8.4-10.4 [facility] Comment on above: Performed By: #### H A1C2, CMP3, LIPD2, TSH5 #### [facility] [address] [place] [address] CO2 [Moles/Vol] 18 mmol/L Low 22-30 [facility] Comment on above: Performed By: #### H A1C2, CMP3, LIPD2, TSH5 #### [facility] [address] [place] [address] Glucose [Mass/Vol] 131 mg/dL High 70-100 [facility] Comment on above: Performed By: #### H A1C2, CMP3, LIPD2, TSH5 #### [facility] [address] [place] [address] Urea nitrogen [Mass/Vol] 5 mg/dL Low 7-20 [facility] Comment on above: Performed By: #### H A1C2, CMP3, LIPD2, TSH5 #### [facility] [address] [place] [address] Creatinine [Mass/Vol] 0.37 mg/dL Low 0.52-1.25 [facility] Comment on above: Performed By: #### H A1C2, CMP3, LIPD2, TSH5 #### [facility] [address] [place] [address] GFR/1.73 sq M predicted among blacks MDRD (S/P/Bld) [Vol rate/Area] mL/min/{1.73_m2} Normal >60 [facility] Comment on above: Performed By: #### H A1C2, CMP3, LIPD2, TSH5 #### [facility] [address] [place] [address] GFR/1.73 sq M predicted among non-blacks MDRD (S/P/Bld) [Vol rate/Area] mL/min/{1.73_m2} Normal >60 [facility] Comment on above: Result Comment: Sour ce- MDRD equation with creatinine calibration to IDMS(NKDEP) eGFR not recommended for drug dose adjustment Performed By: #### H A1C2, CMP3, LIPD2, TSH5 #### [facility] [address] [place] [address] Chloride [Moles/Vol] 106 mmol/L Normal 98-107 [facility] Comment on above: Performed By: #### H A1C2, CMP3, LIPD2, TSH5 #### [facility] [address] [place] [address] Potassium [Moles/Vol] 4.1 mmol/L Normal 3.5-5.1 [facility] Comment on above: Performed By: #### H A1C2, CMP3, LIPD2, TSH5 #### [facility] [address] [place] [address] Sodium [Moles/Vol] 138 mmol/L Normal 135-145 [facility] Comment on above: Performed By: #### H A1C2, CMP3, LIPD2, TSH5 #### [facility] [address] [place] [address] Calcium [Mass/Vol] 8.8 mg/dL Normal 8.4-10.4 [facility] Comment on above: Performed By: #### H A1C2, CMP3, LIPD2, TSH5 #### [facility] [address] [place] [address] Glucose [Mass/Vol] 341 mg/dL High 70-100 [facility] Comment on above: Performed By: #### H A1C2, CMP3, LIPD2, TSH5 #### [facility] [address] [place] [address] Anion gap [Moles/Vol] 18 Normal [facility] Comment on above: Performed By: #### H A1C2, CMP3, LIPD2, TSH5 #### [facility] [address] [place] [address] CO2 [Moles/Vol] 14 mmol/L Low 22-30 [facility] Comment on above: Performed By: #### H A1C2, CMP3, LIPD2, TSH5 #### [facility] [address] [place] [address] Creatinine [Mass/Vol] 0.45 mg/dL Low 0.52-1.25 [facility] Comment on above: Performed By: #### H A1C2, CMP3, LIPD2, TSH5 #### [facility] [address] [place] [address] GFR/1.73 sq M predicted among blacks MDRD (S/P/Bld) [Vol rate/Area] mL/min/{1.73_m2} Normal >60 [facility] Comment on above: Performed By: #### H A1C2, CMP3, LIPD2, TSH5 #### [facility] [address] [place] [address] GFR/1.73 sq M predicted among non-blacks MDRD (S/P/Bld) [Vol rate/Area] mL/min/{1.73_m2} Normal >60 [facility] Comment on above: Result Comment: Sour ce- MDRD equation with creatinine calibration to IDMS(NKDEP) eGFR not recommended for drug dose adjustment Performed By: #### H A1C2, CMP3, LIPD2, TSH5 #### [facility] [address] [place] [address] Urea nitrogen [Mass/Vol] 7 mg/dL Normal 7-20 [facility] Comment on above: Performed By: #### H A1C2, CMP3, LIPD2, TSH5 #### [facility] [address] [place] [address] Chloride [Moles/Vol] 103 mmol/L Normal 98-107 [facility] Comment on above: Performed By: #### H A1C2, CMP3, LIPD2, TSH5 #### [facility] [address] [place] [address] Potassium [Moles/Vol] 4.4 mmol/L Normal 3.5-5.1 [facility] Comment on above: Performed By: #### H A1C2, CMP3, LIPD2, TSH5 #### [facility] [address] [place] [address] Sodium [Moles/Vol] 135 mmol/L Normal 135-145 [facility] Comment on above: Performed By: #### H A1C2, CMP3, LIPD2, TSH5 #### [facility] [address] [place] [address] Beta Hydroxybutyrateon 03-26 Beta Hydroxybutyrate 6.81 mg/dL High 0.20-2.81 [facility] Comment on above: Performed By: #### H A1C2, CMP3, LIPD2, TSH5 #### [facility] [address] [place] [address] Beta Hydroxybutyrate 30.90 mg/dL High 0.20-2.81 [facility] Comment on above: Performed By: #### H A1C2, CMP3, LIPD2, TSH5 #### [facility] [address] [place] [address] CR Chest Portableon 03-26-20 19 CR Chest Portable Patient Name: SANTIAGO JACOBSEN Diagnostic Radiology Exam Date/Time 03/25/2019 22:01:29 EDT Exam CR Chest Portable Ordering Physician CATHY HANNON Accession Number [id number] CPT4 Codes 83811 () Reason For Exam dka/ sepsis Report PORTABLE CHEST X-RAY CLINICAL INDICATION: Sepsis A portable frontal view of the chest was obtained. COMPARISON: 03/15/2019 FINDINGS: The cardiac silhouette is within normal limits. No focal consolidation is seen within the lungs. There is no large pleural effusion or pneumothorax. The bony structures of the chest are unremarkable as visualized. IMPRESSION: No acute cardiopulmonary disease. Report Dictated on Final Dictating Physician: MD AWAN JONATHAN R Signed Date and Time: 03/26/2019 8:10 am Signed by: MD AWAN JONATHAN R Transcribed Date and Time: 03/26/2019 8:11 Normal [facility] Calcium,Ionizedon 03-26-2019 Ionized Ca,Measured 4.80 mg/dL Normal 4.30-5.20 [facility] Comment on above: Performed By: #### H A1C2, CMP3, LIPD2, TSH5 #### [facility] [address] [place] [address] pH, Ionized Calcium 7.27 Low 7.31-7.46 [facility] Comment on above: Performed By: #### H A1C2, CMP3, LIPD2, TSH5 #### [facility] [address] [place] [address] Glucose,Bedsideon 03-26-2019 Glucose [Mass/Vol] 162 mg/dL High 70-100 [facility] Comment on above: Result Comment: Test performed by glucose meter. Results may be 10%-15% lower than serum/plasma values. (CLIA ID [id number]) Performed By: #### H A1C2, CMP3, LIPD2, TSH5 #### [facility] [address] [place] [address] Glucose [Mass/Vol] 103 mg/dL High 70-100 [facility] Comment on above: Result Comment: Test performed by glucose meter. Results may be 10%-15% lower than serum/plasma values. (CLIA ID [id number]) Performed By: #### H A1C2, CMP3, LIPD2, TSH5 #### [facility] [address] [place] [address] Glucose [Mass/Vol] 91 mg/dL Normal 70-100 [facility] Comment on above: Result Comment: Test performed by glucose meter. Results may be 10%-15% lower than serum/plasma values. (CLIA ID [id number]) Performed By: #### H A1C2, CMP3, LIPD2, TSH5 #### [facility] [address] [place] [address] Glucose [Mass/Vol] 69 mg/dL Low 70-100 [facility] Comment on above: Result Comment: Test performed by glucose meter. Results may be 10%-15% lower than serum/plasma values. (CLIA ID [id number]) Performed By: #### H A1C2, CMP3, LIPD2, TSH5 #### [facility] [address] [place] [address] Glucose [Mass/Vol] 99 mg/dL Normal 70-100 [facility] Comment on above: Result Comment: Test performed by glucose meter. Results may be 10%-15% lower than serum/plasma values. (CLIA ID [id number]) Performed By: #### H A1C2, CMP3, LIPD2, TSH5 #### [facility] [address] [place] [address] Glucose [Mass/Vol] 126 mg/dL High 70-100 [facility] Comment on above: Result Comment: Test performed by glucose meter. Results may be 10%-15% lower than serum/plasma values. (CLIA ID [id number]) Performed By: #### H A1C2, CMP3, LIPD2, TSH5 #### [facility] [address] [place] [address] Glucose [Mass/Vol] 241 mg/dL High 70-100 [facility] Comment on above: Result Comment: Test performed by glucose meter. Results may be 10%-15% lower than serum/plasma values. (CLIA ID [id number]) Performed By: #### H A1C2, CMP3, LIPD2, TSH5 #### [facility] [address] [place] [address] Glucose [Mass/Vol] 333 mg/dL High 70-100 [facility] Comment on above: Result Comment: Test performed by glucose meter. Results may be 10%-15% lower than serum/plasma values. (CLIA ID [id number]) Performed By: #### H A1C2, CMP3, LIPD2, TSH5 #### [facility] [address] [place] [address] Glucose [Mass/Vol] 401 mg/dL High 70-100 [facility] Comment on above: Result Comment: Test performed by glucose meter. Results may be 10%-15% lower than serum/plasma values. (CLIA ID [id number]) Performed By: #### H A1C2, CMP3, LIPD2, TSH5 #### [facility] [address] [place] [address] Ketones, Quant Bloodon 03-26 Ketones, Quant Blood Negative Normal Negative [facility] Comment on above: Performed By: #### H A1C2, CMP3, LIPD2, TSH5 #### [facility] [address] [place] [address] Lactic Acidon 03-26-2019 Lactate [Moles/Vol] 1.1 mmol/L Normal 0.7-2.0 [facility] Comment on above: Performed By: #### H A1C2, CMP3, LIPD2, TSH5 #### [facility] [address] [place] [address] Magnesiumon 03-26-2019 Magnesium [Mass/Vol] 1.7 mg/dL Normal 1.6-2.3 [facility] Comment on above: Order Comment: Added on the [facility] 03/26/2019 17:48 Performed By: #### H A1C2, CMP3, LIPD2, TSH5 #### [facility] [address] [place] [address] Magnesium [Mass/Vol] 1.8 mg/dL Normal 1.6-2.3 [facility] Comment on above: Performed By: #### H A1C2, CMP3, LIPD2, TSH5 #### [facility] [address] [place] [address] Magnesium [Mass/Vol] 1.8 mg/dL Normal 1.6-2.3 [facility] Comment on above: Performed By: #### H A1C2, CMP3, LIPD2, TSH5 #### [facility] [address] [place] [address] Magnesium [Mass/Vol] 1.9 mg/dL Normal 1.6-2.3 [facility] Comment on above: Performed By: #### H A1C2, CMP3, LIPD2, TSH5 #### [facility] [address] [place] [address] Magnesium [Mass/Vol] 1.9 mg/dL Normal 1.6-2.3 [facility] Comment on above: Performed By: #### H A1C2, CMP3, LIPD2, TSH5 #### [facility] [address] [place] [address] Phosphoruson 03-26-2019 Phosphate [Mass/Vol] 2.9 mg/dL Normal 2.5-4.5 [facility] Comment on above: Order Comment: Added on the [facility] 03/26/2019 17:48 Performed By: #### H A1C2, CMP3, LIPD2, TSH5 #### [facility] [address] [place] [address] Phosphate [Mass/Vol] 2.6 mg/dL Normal 2.5-4.5 [facility] Comment on above: Performed By: #### H A1C2, CMP3, LIPD2, TSH5 #### [facility] [address] [place] [address] Phosphate [Mass/Vol] 2.3 mg/dL Low 2.5-4.5 [facility] Comment on above: Performed By: #### H A1C2, CMP3, LIPD2, TSH5 #### [facility] [address] [place] [address] Phosphate [Mass/Vol] 2.9 mg/dL Normal 2.5-4.5 [facility] Comment on above: Performed By: #### H A1C2, CMP3, LIPD2, TSH5 #### [facility] [address] [place] [address] Phosphate [Mass/Vol] 3.5 mg/dL Normal 2.5-4.5 [facility] Comment on above: Performed By: #### H A1C2, CMP3, LIPD2, TSH5 #### [facility] [address] [place] [address] US Abdomen Completeon 2018 US Abdomen Complete Patient Name: SANTIAGO JACOBSEN Ultrasound Exam Date/Time 03/26/2019 12:30:00 EDT Exam US Abdomen Complete Ordering Physician CATHY HANNON Accession Number [id number] CPT4 Codes 29847 () Reason For Exam ABNORMAL LIVER FUNCTION TESTS Report Clinical indications: Abnormal LFTs FINDINGS: There are no prior studies for comparison. The liver is heterogeneous in appearance and demonstrates a maximum dimension in excess of 20 cm, consistent with hepatomegaly. There is no definite evidence of focal parenchymal abnormality or intrahepatic biliary duct dilation. There is no ascites. The gallbladder shows no indication of wall thickening, pericholecystic fluid, stone or sludge formation. The wall demonstrates normal thickness at 2 mm. There is normal caliber of the common bile duct at 3 mm. The sonographic Marvin's sign is negative. The tail of the pancreas is obscured by bowel gas and cannot be adequately evaluated. The remainder of the organ appears unremarkable. The spleen demonstrates normal size at 11.1 x 5.2 x 4.8 cm and shows no evidence of focal abnormality. The right kidney measures 13.7 x 7.2 x 5.7 cm and shows no evidence of mass, calculus or hydronephrosis. There is no perinephric fluid. The left kidney measures 13.7 x 5.9 x 5.9 cm. No mass or calculus is seen. There is no evidence of hydronephrosis or perinephric fluid. A possible cyst measuring 1.3 x 1 x 0.5 cm is present in the midpole region. To the extent seen, aorta and IVC are within normal limits. IMPRESSION: Hepatomegaly. Possible left renal cyst as described above. Report Dictated on Final Dictating Physician: MD GARAY RUSSELL Signed Date and Time: 03/26/2019 2:42 pm Signed by: MD GARAY RUSSELL Transcribed Date and Time: 03/26/2019 2:43 Normal [facility] Venous Blood Gas Respiratory on 03-26-2019 Base Excess -9.1 mmol/L Low -3.0-3.0 [facility] Comment on above: Performed By: #### H A1C2, CMP3, LIPD2, TSH5 #### [facility] [address] [place] [address] CO2 [Moles/Vol] 17.3 mmol/L Low 24.0-28.0 [facility] Comment on above: Result Comment: Perf ormed by MARY ID: [id number] [place], [place] Performed By: #### H A1C2, CMP3, LIPD2, TSH5 #### [facility] [address] [place] [address] HCO3 (Bld) [Moles/Vol] 16.3 mmol/L Low 23.0-27.0 [facility] Comment on above: Performed By: #### H A1C2, CMP3, LIPD2, TSH5 #### [facility] [address] [place] [address] Oxygen (Bld) [Partial pressure] 47.7 mm[Hg] Normal 30.0-50.0 [facility] Comment on above: Performed By: #### H A1C2, CMP3, LIPD2, TSH5 #### [facility] [address] [place] [address] Oxygen saturation in Blood 79.7 % Normal 60.0-85.0 [facility] Comment on above: Performed By: #### H A1C2, CMP3, LIPD2, TSH5 #### [facility] [address] [place] [address] pCO2 32.8 mm[Hg] Low 40.0-55.0 [facility] Comment on above: Performed By: #### H A1C2, CMP3, LIPD2, TSH5 #### [facility] [address] [place] [address] pH (Bld) 7.303 Low 7.330-7.430 [facility] Comment on above: Performed By: #### H A1C2, CMP3, LIPD2, TSH5 #### [facility] [address] [place] [address] Add on test from HISon 03-25 Add on test from HIS Rejected Normal [facility] Comment on above: Performed By: #### L ACT3, MG3, CMP3, HEMDF, RBCMO, LIPA4 #### [place] [address] [place] [address] #### BHB #### [address] Basic Metabolic Panelon 06-0 Calcium [Mass/Vol] 8.3 mg/dL Low 8.4-10.4 [facility] Comment on above: Performed By: #### L ACT3, MG3, CMP3, HEMDF, RBCMO, LIPA4 #### [place] [address] [place] [address] #### BHB #### [address] Anion gap [Moles/Vol] 10 Normal [facility] Comment on above: Performed By: #### L ACT3, MG3, CMP3, HEMDF, RBCMO, LIPA4 #### [address] [place] [address] #### BHB #### [address] CO2 [Moles/Vol] 21 mmol/L Low 22-30 [facility] Comment on above: Performed By: #### L ACT3, MG3, CMP3, HEMDF, RBCMO, LIPA4 #### [address] [place] [address] #### BHB #### [address] Creatinine [Mass/Vol] 0.36 mg/dL Low 0.52-1.25 [facility] Comment on above: Performed By: #### L ACT3, MG3, CMP3, HEMDF, RBCMO, LIPA4 #### [address] [place] [address] #### BHB #### [address] GFR/1.73 sq M predicted among blacks MDRD (S/P/Bld) [Vol rate/Area] mL/min/{1.73_m2} Normal >60 [facility] Comment on above: Performed By: #### L ACT3, MG3, CMP3, HEMDF, RBCMO, LIPA4 #### [facility] [address] [place] [address] #### BHB #### [place] [address] [place] [address] GFR/1.73 sq M predicted among non-blacks MDRD (S/P/Bld) [Vol rate/Area] mL/min/{1.73_m2} Normal >60 [facility] Comment on above: Result Comment: Sour ce- MDRD equation with creatinine calibration to IDMS(NKDEP) eGFR not recommended for drug dose adjustment Performed By: #### L ACT3, MG3, CMP3, HEMDF, RBCMO, LIPA4 #### [facility] [address] [place] [address] #### BHB #### [address] [address] Glucose [Mass/Vol] 103 mg/dL High 70-100 [facility] Comment on above: Performed By: #### L ACT3, MG3, CMP3, HEMDF, RBCMO, LIPA4 #### [facility] [address] [place] [address] #### BHB #### [address] [address] Urea nitrogen [Mass/Vol] 5 mg/dL Low 7-20 [facility] Comment on above: Performed By: #### L ACT3, MG3, CMP3, HEMDF, RBCMO, LIPA4 #### [facility] [address] [place] [address] #### BHB #### [address] [address] Chloride [Moles/Vol] 104 mmol/L Normal 98-107 [facility] Comment on above: Performed By: #### L ACT3, MG3, CMP3, HEMDF, RBCMO, LIPA4 #### [facility] [address] [place] [address] #### BHB #### [place] [address] [place], [place] Potassium [Moles/Vol] 3.9 mmol/L Normal 3.5-5.1 [facility] Comment on above: Performed By: #### L ACT3, MG3, CMP3, HEMDF, RBCMO, LIPA4 #### [facility] [address] [place] [address] #### BHB #### [place] [address] [place], [place] Sodium [Moles/Vol] 136 mmol/L Normal 135-145 [facility] Comment on above: Performed By: #### L ACT3, MG3, CMP3, HEMDF, RBCMO, LIPA4 #### [facility] [address] [place] [address] #### BHB #### [address] Comp Metabolic Panelon 03-25 Calcium [Mass/Vol] 9.7 mg/dL Normal 8.4-10.4 [facility] Comment on above: Performed By: #### L ACT3, MG3, CMP3, HEMDF, RBCMO, LIPA4 #### [facility] [address] [place] [address] #### BHB #### [address] ALP [Catalytic activity/Vol] 191 U/L High 38-126 [facility] Comment on above: Performed By: #### L ACT3, MG3, CMP3, HEMDF, RBCMO, LIPA4 #### [facility] [address] [place] [address] #### BHB #### [address] ALT [Catalytic activity/Vol] 27 U/L Normal 13-69 [facility] Comment on above: Performed By: #### L ACT3, MG3, CMP3, HEMDF, RBCMO, LIPA4 #### [facility] [address] [place] [address] #### BHB #### [place] [address] [place], [place] Anion gap [Moles/Vol] 24 Normal [facility] Comment on above: Performed By: #### L ACT3, MG3, CMP3, HEMDF, RBCMO, LIPA4 #### [facility] [address] [place] [address] #### BHB #### [place] [address] [address] [place], [place] AST [Catalytic activity/Vol] 54 U/L High 15-46 [facility] Comment on above: Performed By: #### L ACT3, MG3, CMP3, HEMDF, RBCMO, LIPA4 #### [facility] [address] [place] [address] #### BHB #### [place] [address] [address] [place], [place] Bilirubin [Mass/Vol] 0.8 mg/dL Normal 0.2-1.3 [facility] Comment on above: Performed By: #### L ACT3, MG3, CMP3, HEMDF, RBCMO, LIPA4 #### [facility] [address] [place] [address] #### BHB #### [place] [address] [address] [place], [place] CO2 [Moles/Vol] 14 mmol/L Low 22-30 [facility] Comment on above: Performed By: #### L ACT3, MG3, CMP3, HEMDF, RBCMO, LIPA4 #### [facility] [address] [place] [address] #### BHB #### [place] [address] [address] [place], [place] Creatinine [Mass/Vol] 0.47 mg/dL Low 0.52-1.25 [facility] Comment on above: Performed By: #### L ACT3, MG3, CMP3, HEMDF, RBCMO, LIPA4 #### [facility] [address] [place] [address] #### BHB #### [place] [address] [address] [place], [place] GFR/1.73 sq M predicted among blacks MDRD (S/P/Bld) [Vol rate/Area] mL/min/{1.73_m2} Normal >60 [facility] Comment on above: Performed By: #### L ACT3, MG3, CMP3, HEMDF, RBCMO, LIPA4 #### [facility] [employer] [facility] [address] [place] [address] #### BHB #### [place] [address] [place] [address] GFR/1.73 sq M predicted among non-blacks MDRD (S/P/Bld) [Vol rate/Area] mL/min/{1.73_m2} Normal >60 [facility] Comment on above: Result Comment: Sour ce- MDRD equation with creatinine calibration to IDMS(NKDEP) eGFR not recommended for drug dose adjustment Performed By: #### L ACT3, MG3, CMP3, HEMDF, RBCMO, LIPA4 #### [facility] [employer] [facility] [address] [place] [address] #### BHB #### [address] [address] Glucose [Mass/Vol] 99 mg/dL Normal 70-100 [facility] Comment on above: Performed By: #### L ACT3, MG3, CMP3, HEMDF, RBCMO, LIPA4 #### [facility] [employer] [place] [address] [place] [address] #### BHB #### [address] [address] Protein [Mass/Vol] 8.5 g/dL High 6.3-8.2 [facility] Comment on above: Performed By: #### L ACT3, MG3, CMP3, HEMDF, RBCMO, LIPA4 #### [facility] [employer] [facility] [address] [place] [address] #### BHB #### [address] [address] Urea nitrogen [Mass/Vol] 8 mg/dL Normal 7-20 [facility] Comment on above: Performed By: #### L ACT3, MG3, CMP3, HEMDF, RBCMO, LIPA4 #### [facility] [address] [place] [address] #### BHB #### [address] Potassium [Moles/Vol] 4.7 mmol/L Normal 3.5-5.1 [facility] Comment on above: Performed By: #### L ACT3, MG3, CMP3, HEMDF, RBCMO, LIPA4 #### [facility] [address] [place] [address] #### BHB #### [address] Sodium [Moles/Vol] 140 mmol/L Normal 135-145 [facility] Comment on above: Performed By: #### L ACT3, MG3, CMP3, HEMDF, RBCMO, LIPA4 #### [place] [address] [place] [address] #### BHB #### [address] Albumin [Mass/Vol] 4.4 g/dL Normal 3.5-5.0 [facility] Comment on above: Performed By: #### L ACT3, MG3, CMP3, HEMDF, RBCMO, LIPA4 #### [place] [address] [place] [address] #### BHB #### [address] Chloride [Moles/Vol] 101 mmol/L Normal 98-107 [facility] Comment on above: Performed By: #### L ACT3, MG3, CMP3, HEMDF, RBCMO, LIPA4 #### [facility] [address] [place] [address] #### BHB #### [address] Complete Urinalysison 2018 Appearance (U) Clear Normal [facility] Comment on above: Result Comment: Refe rence Range: Clear Performed By: #### L ACT3, MG3, CMP3, HEMDF, RBCMO, LIPA4 #### [facility] [address] [place] [address] #### BHB #### [address] Bilirubin,Urine 0.5 mg/dL Normal [facility] Comment on above: Result Comment: Refe rence Range: Negative Performed By: #### L ACT3, MG3, CMP3, HEMDF, RBCMO, LIPA4 #### [facility] [address] [place] [address] #### BHB #### [address] Cast, Hyaline 6 - 10 Normal [facility] Comment on above: Result Comment: Refe rence Range: Negative Performed By: #### L ACT3, MG3, CMP3, HEMDF, RBCMO, LIPA4 #### [address] [place] [address] #### BHB #### [address] Color (U) Light-Yellow Normal [facility] Comment on above: Result Comment: Refe rence Range: Lt. Yellow Performed By: #### L ACT3, MG3, CMP3, HEMDF, RBCMO, LIPA4 #### [address] [place] [address] #### BHB #### [address] Glucose Ql (U) 70 mg/dL Normal [facility] Comment on above: Result Comment: Refe rence Range: Normal (<70) Performed By: #### L ACT3, MG3, CMP3, HEMDF, RBCMO, LIPA4 #### [place] [address] [place] [address] #### BHB #### [address] Ketone,Urine 60 mg/dL Normal [facility] Comment on above: Result Comment: Refe rence Range: Negative Performed By: #### L ACT3, MG3, CMP3, HEMDF, RBCMO, LIPA4 #### [facility] [address] [place] [address] #### BHB #### [place] [address] [address] [place], [place] Leukocytes,Urine Negative Normal [facility] Comment on above: Result Comment: Refe rence Range: Negative Performed By: #### L ACT3, MG3, CMP3, HEMDF, RBCMO, LIPA4 #### [facility] [address] [place] [address] #### BHB #### [place] [address] [address] [place], [place] Mucous Threads Few Normal [facility] Comment on above: Result Comment: Refe rence Range: Negative Performed By: #### L ACT3, MG3, CMP3, HEMDF, RBCMO, LIPA4 #### [place] [address] [place] [address] #### BHB #### [place] [address] [address] [place], [place] Nitrites,Urine Negative Normal [facility] Comment on above: Result Comment: Refe rence Range: Negative Performed By: #### L ACT3, MG3, CMP3, HEMDF, RBCMO, LIPA4 #### [facility] [address] [place] [address] #### BHB #### [place] [address] [address] [place], [place] Occult Blood,Urine Negative Normal [facility] Comment on above: Result Comment: Refe rence Range: Negative Performed By: #### L ACT3, MG3, CMP3, HEMDF, RBCMO, LIPA4 #### [facility] [address] [place] [address] #### BHB #### [place] [address] [place], [place] pH (U) 5.5 Normal 5.0-8.0 [facility] Comment on above: Performed By: #### L ACT3, MG3, CMP3, HEMDF, RBCMO, LIPA4 #### [place] [address] [place] [address] #### BHB #### [address] Protein (U) [Mass/Vol] 50 mg/dL Normal [facility] Comment on above: Result Comment: Refe rence Range: Negative Performed By: #### L ACT3, MG3, CMP3, HEMDF, RBCMO, LIPA4 #### [place] [address] [place] [address] #### BHB #### [place] [address] [address] [place], [place] RBC LM.HPF (Urine sed) [#/Area] 0 - 2 Normal [facility] Comment on above: Result Comment: Refe rence Range: 0-2 Performed By: #### L ACT3, MG3, CMP3, HEMDF, RBCMO, LIPA4 #### [place] [address] [place] [address] #### BHB #### [address] Specific Nesbit,Urine 1.016 Normal 1.005-1.030 [facility] Comment on above: Performed By: #### L ACT3, MG3, CMP3, HEMDF, RBCMO, LIPA4 #### [address] [place] [address] #### BHB #### [address] Squamous Epithelial 3 - 5 Normal [facility] Comment on above: Result Comment: Refe rence Range: 3-5 Performed By: #### L ACT3, MG3, CMP3, HEMDF, RBCMO, LIPA4 #### [place] [address] [place] [address] #### BHB #### [address] Urobilinogen,Urine 2 mg/dL Normal [facility] Comment on above: Result Comment: Refe rence Range: Normal (0-1) Performed By: #### L ACT3, MG3, CMP3, HEMDF, RBCMO, LIPA4 #### [facility] [address] [place] [address] #### BHB #### [address] [address] WBC LM.HPF (Urine sed) [#/Area] 3 - 5 Normal [facility] Comment on above: Result Comment: Refe rence Range: 0-5 Performed By: #### L ACT3, MG3, CMP3, HEMDF, RBCMO, LIPA4 #### [facility] [address] [place] [address] #### BHB #### [address] [address] Drugs of Abuseon 03-25-2019 Opiates, Ur Negative Normal [facility] Comment on above: Performed By: #### L ACT3, MG3, CMP3, HEMDF, RBCMO, LIPA4 #### [facility] [address] [place] [address] #### BHB #### [address] [address] Phencyclidine (PCP), Ur Negative Normal [facility] Comment on above: Result Comment: The expected value for all of the drugs listed above is Negative. The following drugs or drug groups have been screened for by Immunoassay at the following thresholds: Amphetamine class (1000 ng/mL), Barbiturates (200 ng/mL), Benzodiazepines (200 ng/mL), Cocaine (300 ng/mL), Methadone (300 ng/mL), Opiates (300 ng/mL), Oxycodone (100 ng/mL), and PCP (25 ng/mL). NOTE: These results are for medical treatment only. Analysis performed using non-forensic procedures. POSITIVE results are NOT confirmed by a more specific alternative method unless requested. If confirmation is needed, request confirmation under separate order. Performed By: #### L ACT3, MG3, CMP3, HEMDF, RBCMO, LIPA4 #### [facility] [address] [place] [address] #### BHB #### [address] [place] [address] Methadone, Ur Negative Normal [facility] Comment on above: Performed By: #### L ACT3, MG3, CMP3, HEMDF, RBCMO, LIPA4 #### [facility] [address] [place] [address] #### BHB #### [place] [address] [place] [address] Benzodiazepines, Ur Negative Normal [facility] Comment on above: Performed By: #### L ACT3, MG3, CMP3, HEMDF, RBCMO, LIPA4 #### [facility] [address] [place] [address] #### BHB #### [place] [address] [place] [address] Cocaine, Ur Negative Normal [facility] Comment on above: Performed By: #### L ACT3, MG3, CMP3, HEMDF, RBCMO, LIPA4 #### [facility] [address] [place] [address] #### BHB #### [place] [address] [address] [place], [place] Barbiturates, Ur Negative Normal [facility] Comment on above: Performed By: #### L ACT3, MG3, CMP3, HEMDF, RBCMO, LIPA4 #### [facility] [address] [place] [address] #### BHB #### [place] [address] [place] [address] Amphetamines, Ur Negative Normal [facility] Comment on above: Performed By: #### L ACT3, MG3, CMP3, HEMDF, RBCMO, LIPA4 #### [facility] [address] [place] [address] #### BHB #### [place] [address] [place] [address] Oxycodone/Oxymorphine,U r Negative Normal [facility] Comment on above: Performed By: #### L ACT3, MG3, CMP3, HEMDF, RBCMO, LIPA4 #### [facility] [address] [place] [address] #### BHB #### [facility] [address] [place] [address] GGTon 03-25-2019 Gamma glutamyl transferase [Catalytic activity/Vol] 52 U/L Normal 12-58 [facility] Comment on above: Performed By: #### L ACT3, MG3, CMP3, HEMDF, RBCMO, LIPA4 #### [facility] [address] [place] [address] #### BHB #### [facility] [address] [place] [address] Glucose,Bedsideon 03-25-2019 Glucose [Mass/Vol] 344 mg/dL High 70-100 [facility] Comment on above: Result Comment: Test performed by glucose meter. Results may be 10%-15% lower than serum/plasma values. (CLIA ID [id number]) Performed By: #### H A1C2, CMP3, LIPD2, TSH5 #### [facility] [address] [place] [address] Glucose [Mass/Vol] 131 mg/dL High 70-100 [facility] Comment on above: Result Comment: Test performed by glucose meter. Results may be 10%-15% lower than serum/plasma values. (CLIA ID [id number]) Performed By: #### H A1C2, CMP3, LIPD2, TSH5 #### [facility] [employer] [facility] [address] [place] [address] Glucose [Mass/Vol] 74 mg/dL Normal 70-100 [facility] Comment on above: Result Comment: Test performed by glucose meter. Results may be 10%-15% lower than serum/plasma values. (CLIA ID [id number]) Performed By: #### H A1C2, CMP3, LIPD2, TSH5 #### [facility] [employer] [facility] [address] [place] [address] Glucose [Mass/Vol] 99 mg/dL Normal 70-100 [facility] Comment on above: Result Comment: Test performed by glucose meter. Results may be 10%-15% lower than serum/plasma values. (CLIA ID [id number]) Performed By: #### L ACT3, MG3, CMP3, HEMDF, RBCMO, LIPA4 #### [employer] [address] [place] [address] #### BHB #### [facility] [employer] [facility] [address] [place] [address] Glucose [Mass/Vol] 85 mg/dL Normal 70-100 [facility] Comment on above: Result Comment: Test performed by glucose meter. Results may be 10%-15% lower than serum/plasma values. (CLIA ID [id number]) Performed By: #### L ACT3, MG3, CMP3, HEMDF, RBCMO, LIPA4 #### [employer] [facility] [address] [place] [address] #### BHB #### [facility] [employer] [address] [address] Glucose [Mass/Vol] 102 mg/dL High 70-100 [facility] Comment on above: Result Comment: Test performed by glucose meter. Results may be 10%-15% lower than serum/plasma values. (CLIA ID [id number]) Performed By: #### L ACT3, MG3, CMP3, HEMDF, RBCMO, LIPA4 #### [employer] [address] [place] [address] #### BHB #### [facility] [employer] [address] [address] Glucose [Mass/Vol] 85 mg/dL Normal 70-100 [facility] Comment on above: Result Comment: Test performed by glucose meter. Results may be 10%-15% lower than serum/plasma values. (CLIA ID [id number]) Performed By: #### K ETT #### [employer] [facility] [address] [place] [address] HCG,Urine Qualon 03-25-2019 Beta HCG ( test) Ql (U) Negative Normal Negative [facility] Comment on above: Result Comment: Preg carlos enrique is the most common reason for HCG in urine, although choriocarcinoma, hydatidiform mole, and certain nontropho- blastic malignancies also result in detectable urinary HCG levels. Sensitivity = 20mIU/mL. Performed By: #### L ACT3, MG3, CMP3, HEMDF, RBCMO, LIPA4 #### [facility] [address] [place] [address] #### BHB #### [facility] [address] [facility] [place] [address] Hemogram w/ Autodiffon 03-25 Abs Baso Cnt 0.1 10*3/uL Normal 0.0-0.2 [facility] Comment on above: Performed By: #### H A1C2, CMP3, LIPD2, TSH5 #### [facility] [address] [place] [address] Abs Neutrophile Cnt 5.0 10*3/uL Normal 1.8-7.0 [facility] Comment on above: Performed By: #### H A1C2, CMP3, LIPD2, TSH5 #### [facility] [address] [place] [address] Basophils/100 WBC (Bld) 1.2 % Normal 0.0-2.0 [facility] Comment on above: Performed By: #### H A1C2, CMP3, LIPD2, TSH5 #### [facility] [address] [place] [address] Eosinophils (Bld) [#/Vol] 0.1 10*3/uL Normal 0.0-0.5 [facility] Comment on above: Performed By: #### H A1C2, CMP3, LIPD2, TSH5 #### [facility] [address] [place] [address] Eosinophils/100 WBC (Bld) 1.4 % Normal 1.0-6.0 [facility] Comment on above: Performed By: #### H A1C2, CMP3, LIPD2, TSH5 #### [facility] [address] [place] [address] Erythrocyte distribution width (RBC) [Ratio] 12.8 % Normal 11.5-14.5 [facility] Comment on above: Performed By: #### H A1C2, CMP3, LIPD2, TSH5 #### [facility] [address] [place] [address] Granulocytes/100 WBC (Bld) 59.9 % Normal 40.0-80.0 [facility] Comment on above: Performed By: #### H A1C2, CMP3, LIPD2, TSH5 #### [facility] [address] [place] [address] Hematocrit (Bld) [Volume fraction] 34.4 % Low 35.0-47.0 [facility] Comment on above: Performed By: #### H A1C2, CMP3, LIPD2, TSH5 #### [facility] [address] [place] [address] Hemoglobin (Bld) [Mass/Vol] 11.9 g/dL Normal 11.7-16.0 [facility] [facility] Comment on above: Performed By: #### H A1C2, CMP3, LIPD2, TSH5 #### [address] [address] Lymphocytes (Bld) [#/Vol] 2.4 10*3/uL Normal 1.0-4.3 [facility] Comment on above: Performed By: #### H A1C2, CMP3, LIPD2, TSH5 #### [address] [address] Lymphocytes/100 WBC (Bld) 29.1 % Normal 20.0-40.0 [facility] Comment on above: Performed By: #### H A1C2, CMP3, LIPD2, TSH5 #### [address] [address] MCH (RBC) [Entitic mass] 31.1 pg Normal 26.0-34.0 [facility] Comment on above: Performed By: #### H A1C2, CMP3, LIPD2, TSH5 #### [address] [address] MCHC (RBC) [Mass/Vol] 34.6 % Normal 32.0-36.0 [facility] Comment on above: Performed By: #### H A1C2, CMP3, LIPD2, TSH5 #### [facility] [address] [place] [address] MCV (RBC) [Entitic vol] 89.8 fL Normal 79.0-98.0 [facility] Comment on above: Performed By: #### H A1C2, CMP3, LIPD2, TSH5 #### [facility] [address] [place] [address] Monocytes (Bld) [#/Vol] 0.7 10*3/uL Normal 0.0-0.8 [facility] Comment on above: Performed By: #### H A1C2, CMP3, LIPD2, TSH5 #### [facility] [address] [place] [address] Monocytes/100 WBC (Bld) 8.4 % Normal 2.0-10.0 [facility] Comment on above: Performed By: #### H A1C2, CMP3, LIPD2, TSH5 #### [facility] [address] [place] [address] Platelet mean volume (Bld) [Entitic vol] 6.5 fL Low 7.4-10.4 [facility] Comment on above: Performed By: #### H A1C2, CMP3, LIPD2, TSH5 #### [facility] [address] [place] [address] Platelets (Bld) [#/Vol] 405 10*3/uL Normal 140-440 [facility] Comment on above: Performed By: #### H A1C2, CMP3, LIPD2, TSH5 #### [facility] [address] [place] [address] RBC (Bld) [#/Vol] 3.83 10*6/uL Normal 3.80-5.20 [facility] Comment on above: Performed By: #### H A1C2, CMP3, LIPD2, TSH5 #### [facility] [address] [place] [address] WBC (Bld) [#/Vol] 8.3 10*3/uL Normal 3.6-10.7 [facility] Comment on above: Performed By: #### H A1C2, CMP3, LIPD2, TSH5 #### [facility] [address] [place] [address] Abs Baso Cnt 0.2 10*3/uL Normal 0.0-0.2 [facility] Comment on above: Performed By: #### L ACT3, MG3, CMP3, HEMDF, RBCMO, LIPA4 #### [facility] [address] [facility] [place] [address] #### BHB #### [facility] [address] [place] [address] Abs Neutrophile Cnt 9.7 10*3/uL High 1.8-7.0 [facility] Comment on above: Performed By: #### L ACT3, MG3, CMP3, HEMDF, RBCMO, LIPA4 #### [facility] [address] [place] [address] #### BHB #### [address] [address] Basophils/100 WBC (Bld) 1.2 % Normal 0.0-2.0 [facility] Comment on above: Performed By: #### L ACT3, MG3, CMP3, HEMDF, RBCMO, LIPA4 #### [facility] [address] [place] [address] #### BHB #### [address] [address] Eosinophils (Bld) [#/Vol] 0.0 10*3/uL Normal 0.0-0.5 [facility] Comment on above: Performed By: #### L ACT3, MG3, CMP3, HEMDF, RBCMO, LIPA4 #### [facility] [address] [place] [address] #### BHB #### [address] [address] Eosinophils/100 WBC (Bld) 0.1 % Low 1.0-6.0 [facility] Comment on above: Performed By: #### L ACT3, MG3, CMP3, HEMDF, RBCMO, LIPA4 #### [facility] [address] [place] [address] #### BHB #### [place] [address] [place], [place] Erythrocyte distribution width (RBC) [Ratio] 12.7 % Normal 11.5-14.5 [facility] Comment on above: Performed By: #### L ACT3, MG3, CMP3, HEMDF, RBCMO, LIPA4 #### [facility] [address] [place] [address] #### BHB #### [address] [address] [place], [place] Granulocytes/100 WBC (Bld) 73.7 % Normal 40.0-80.0 [facility] Comment on above: Performed By: #### L ACT3, MG3, CMP3, HEMDF, RBCMO, LIPA4 #### [facility] [address] [place] [address] #### BHB #### [address] Hematocrit (Bld) [Volume fraction] 42.5 % Normal 35.0-47.0 [facility] Comment on above: Performed By: #### L ACT3, MG3, CMP3, HEMDF, RBCMO, LIPA4 #### [facility] [address] [place] [address] #### BHB #### [address] Hemoglobin (Bld) [Mass/Vol] 14.3 g/dL Normal 11.7-16.0 [facility] Comment on above: Performed By: #### L ACT3, MG3, CMP3, HEMDF, RBCMO, LIPA4 #### [facility] [address] [place] [address] #### BHB #### [address] Lymphocytes (Bld) [#/Vol] 2.3 10*3/uL Normal 1.0-4.3 [facility] Comment on above: Performed By: #### L ACT3, MG3, CMP3, HEMDF, RBCMO, LIPA4 #### [place] [address] [place] [address] #### BHB #### [address] Lymphocytes/100 WBC (Bld) 17.6 % Low 20.0-40.0 [facility] Comment on above: Performed By: #### L ACT3, MG3, CMP3, HEMDF, RBCMO, LIPA4 #### [place] [address] [place] [address] #### BHB #### [address] [address] [address] [place], [place] MCH (RBC) [Entitic mass] 30.3 pg Normal 26.0-34.0 [facility] Comment on above: Performed By: #### L ACT3, MG3, CMP3, HEMDF, RBCMO, LIPA4 #### [place] [address] [place] [address] #### BHB #### [address] MCHC (RBC) [Mass/Vol] 33.6 % Normal 32.0-36.0 [facility] Comment on above: Performed By: #### L ACT3, MG3, CMP3, HEMDF, RBCMO, LIPA4 #### [place] [address] [place] [address] #### BHB #### [address] MCV (RBC) [Entitic vol] 90.2 fL Normal 79.0-98.0 [facility] Comment on above: Performed By: #### L ACT3, MG3, CMP3, HEMDF, RBCMO, LIPA4 #### [place] [address] [place] [address] #### BHB #### [address] Monocytes (Bld) [#/Vol] 1.0 10*3/uL High 0.0-0.8 [facility] Comment on above: Performed By: #### L ACT3, MG3, CMP3, HEMDF, RBCMO, LIPA4 #### [facility] [address] [place] [address] #### BHB #### [facility] [address] [place] [address] Monocytes/100 WBC (Bld) 7.4 % Normal 2.0-10.0 [facility] Comment on above: Performed By: #### L ACT3, MG3, CMP3, HEMDF, RBCMO, LIPA4 #### [facility] [address] [place] [address] #### BHB #### [place] [address] [address] [place], [place] Platelet mean volume (Bld) [Entitic vol] 6.9 fL Low 7.4-10.4 [facility] Comment on above: Performed By: #### L ACT3, MG3, CMP3, HEMDF, RBCMO, LIPA4 #### [facility] [address] [place] [address] #### BHB #### [address] [address] [address] [place], [place] Platelets (Bld) [#/Vol] 489 10*3/uL High 140-440 [facility] Comment on above: Performed By: #### L ACT3, MG3, CMP3, HEMDF, RBCMO, LIPA4 #### [facility] [address] [place] [address] #### BHB #### [address] [address] [address] [place], [place] RBC (Bld) [#/Vol] 4.72 10*6/uL Normal 3.80-5.20 [facility] Comment on above: Performed By: #### L ACT3, MG3, CMP3, HEMDF, RBCMO, LIPA4 #### [facility] [address] [place] [address] #### BHB #### [place] [address] [place], [place] WBC (Bld) [#/Vol] 13.2 10*3/uL High 3.6-10.7 [facility] Comment on above: Performed By: #### L ACT3, MG3, CMP3, HEMDF, RBCMO, LIPA4 #### [facility] [address] [place] [address] #### BHB #### [address] Ketones, Quant Bloodon 03-25 Ketones, Quant Blood Negative Normal Negative [facility] Comment on above: Performed By: #### L ACT3, MG3, CMP3, HEMDF, RBCMO, LIPA4 #### [facility] [address] [place] [address] #### BHB #### [address] Ketones, Quant Blood Small (15) Abnormal Negative [facility] Comment on above: Performed By: #### L ACT3, MG3, CMP3, HEMDF, RBCMO, LIPA4 #### [facility] [address] [place] [address] #### BHB #### [address] Lactic Acidon 03-25-2019 Lactate [Moles/Vol] 1.8 mmol/L Normal 0.7-2.0 [facility] Comment on above: Performed By: #### L ACT3, MG3, CMP3, HEMDF, RBCMO, LIPA4 #### [facility] [address] [place] [address] #### BHB #### [address] Lactate [Moles/Vol] 4.9 mmol/L Critically high 0.7-2.0 [facility] Comment on above: Performed By: #### L ACT3, MG3, CMP3, HEMDF, RBCMO, LIPA4 #### [facility] [address] [place] [address] #### BHB #### [address] Lipaseon 03-25-2019 Lipase [Catalytic activity/Vol] 15 U/L Low 23-300 [facility] Comment on above: Performed By: #### L ACT3, MG3, CMP3, HEMDF, RBCMO, LIPA4 #### [facility] [address] [place] [address] #### BHB #### [facility] [address] [place] [address] Lipase [Catalytic activity/Vol] 33 U/L Normal 23-300 [facility] Comment on above: Performed By: #### L ACT3, MG3, CMP3, HEMDF, RBCMO, LIPA4 #### [facility] [address] [place] [address] #### BHB #### [address] [address] Magnesiumon 03-25-2019 Magnesium [Mass/Vol] 1.7 mg/dL Normal 1.6-2.3 [facility] Comment on above: Performed By: #### L ACT3, MG3, CMP3, HEMDF, RBCMO, LIPA4 #### [facility] [address] [place] [address] #### BHB #### [address] [address] Phosphoruson 03-25-2019 Phosphate [Mass/Vol] 3.2 mg/dL Normal 2.5-4.5 [facility] Comment on above: Performed By: #### L ACT3, MG3, CMP3, HEMDF, RBCMO, LIPA4 #### [facility] [address] [place] [address] #### BHB #### [address] [address] Procalcitoninon 03-25-2019 Procalcitonin 0.41 ng/mL Abnormal <0.10 [facility] Comment on above: Performed By: #### H A1C2, CMP3, LIPD2, TSH5 #### [facility] [address] [place] [place] [address] Interpretation See Below Normal [facility] Comment on above: Result Comment: PCT <0.50 = Low risk of severe sepsis and/or septic shock. PCT >2.00 = High risk of severe sepsis and/or septic shock. Performed By: #### H A1C2, CMP3, LIPD2, TSH5 #### [facility] [address] [place] [address] Thyroid Stim. Hormoneon Thyroid Stim. Hormone 0.584 u[IU]/mL Normal 0.465-4.68 0 [facility] Comment on above: Performed By: #### H A1C2, CMP3, LIPD2, TSH5 #### [facility] [address] [place] [address] Venous Blood Gas Respiratory on 03-25-2019 Base Excess -7.3 mmol/L Low -3.0-3.0 [facility] Comment on above: Performed By: #### H A1C2, CMP3, LIPD2, TSH5 #### [facility] [address] [place] [address] CO2 [Moles/Vol] 18.7 mmol/L Low 24.0-28.0 [facility] Comment on above: Performed By: #### H A1C2, CMP3, LIPD2, TSH5 #### [facility] [address] [place] [address] FIO2 21 Normal [facility] Comment on above: Result Comment: Perf ormed by MARY ID: [id number] [place], [place] Performed By: #### H A1C2, CMP3, LIPD2, TSH5 #### [facility] [address] [place] [address] HCO3 (Bld) [Moles/Vol] 17.7 mmol/L Low 23.0-27.0 [facility] Comment on above: Performed By: #### H A1C2, CMP3, LIPD2, TSH5 #### [facility] [address] [place] [address] Oxygen (Bld) [Partial pressure] 44.3 mm[Hg] Normal 30.0-50.0 [facility] Comment on above: Performed By: #### H A1C2, CMP3, LIPD2, TSH5 #### [facility] [address] [place] [address] Oxygen saturation in Blood 77.5 % Normal 60.0-85.0 [facility] Comment on above: Performed By: #### H A1C2, CMP3, LIPD2, TSH5 #### [facility] [address] [place] [address] pCO2 33.5 mm[Hg] Low 40.0-55.0 [facility] Comment on above: Performed By: #### H A1C2, CMP3, LIPD2, TSH5 #### [facility] [address] [place] [address] pH (Bld) 7.332 Normal 7.330-7.430 [facility] Comment on above: Performed By: #### H A1C2, CMP3, LIPD2, TSH5 #### [facility] [address] [place] [address] Base Excess -9.6 mmol/L Low -3.0-3.0 [facility] Comment on above: Performed By: #### L ACT3, MG3, CMP3, HEMDF, RBCMO, LIPA4 #### [facility] [address] [place] [address] #### BHB #### [facility] [address] [place] [address] CO2 [Moles/Vol] 18.0 mmol/L Low 24.0-28.0 [facility] Comment on above: Performed By: #### L ACT3, MG3, CMP3, HEMDF, RBCMO, LIPA4 #### [facility] [address] [place] [address] #### BHB #### [facility] [address] [place] [address] FIO2 21 Normal [facility] Comment on above: Result Comment: Perf ormed by MARY ID: [id number] [place] Performed By: #### L ACT3, MG3, CMP3, HEMDF, RBCMO, LIPA4 #### [facility] [address] [place] [address] #### BHB #### [place] [address] [address] [place], [place] HCO3 (Bld) [Moles/Vol] 16.9 mmol/L Low 23.0-27.0 [facility] Comment on above: Performed By: #### L ACT3, MG3, CMP3, HEMDF, RBCMO, LIPA4 #### [facility] [address] [place] [address] #### BHB #### [address] Oxygen (Bld) [Partial pressure] 29.6 mm[Hg] Low 30.0-50.0 [facility] Comment on above: Performed By: #### L ACT3, MG3, CMP3, HEMDF, RBCMO, LIPA4 #### [place] [address] [place] [address] #### BHB #### [address] Oxygen saturation in Blood 47.5 % Low 60.0-85.0 [facility] Comment on above: Performed By: #### L ACT3, MG3, CMP3, HEMDF, RBCMO, LIPA4 #### [facility] [address] [place] [address] #### BHB #### [address] pCO2 38.0 mm[Hg] Low 40.0-55.0 [facility] Comment on above: Performed By: #### L ACT3, MG3, CMP3, HEMDF, RBCMO, LIPA4 #### [facility] [address] [place] [address] #### BHB #### [address] pH (Bld) 7.254 Low 7.330-7.430 [facility] Comment on above: Performed By: #### L ACT3, MG3, CMP3, HEMDF, RBCMO, LIPA4 #### [facility] [address] [place] [address] #### BHB #### [facility] [address] [facility] [place] [address] Basic Metabolic Panelon 05-2 Calcium [Mass/Vol] 8.8 mg/dL Normal 8.4-10.4 [facility] Comment on above: Performed By: #### K ETT #### [facility] [address] [place] [address] Glucose [Mass/Vol] 104 mg/dL High 70-100 [facility] Comment on above: Performed By: #### K ETT #### [facility] [address] [place] [address] Urea nitrogen [Mass/Vol] 4 mg/dL Low 7-20 [facility] Comment on above: Performed By: #### K ETT #### [facility] [address] [place] [address] Anion gap [Moles/Vol] 11 Normal [facility] Comment on above: Performed By: #### K ETT #### [facility] [address] [place] [address] CO2 [Moles/Vol] 23 mmol/L Normal 22-30 [facility] Comment on above: Performed By: #### K ETT #### [facility] [address] [place] [address] Creatinine [Mass/Vol] 0.37 mg/dL Low 0.52-1.25 [facility] Comment on above: Performed By: #### K ETT #### [facility] [address] [place] [address] GFR/1.73 sq M predicted among blacks MDRD (S/P/Bld) [Vol rate/Area] mL/min/{1.73_m2} Normal >60 [facility] Comment on above: Performed By: #### K ETT #### [facility] [address] [place] [address] GFR/1.73 sq M predicted among non-blacks MDRD (S/P/Bld) [Vol rate/Area] mL/min/{1.73_m2} Normal >60 [facility] Comment on above: Result Comment: Sour ce- MDRD equation with creatinine calibration to IDMS(NKDEP) eGFR not recommended for drug dose adjustment Performed By: #### K ETT #### [facility] [address] [place] [address] Chloride [Moles/Vol] 107 mmol/L Normal 98-107 [facility] Comment on above: Performed By: #### K ETT #### [facility] [address] [place] [address] Potassium [Moles/Vol] 4.0 mmol/L Normal 3.5-5.1 [facility] Comment on above: Performed By: #### K ETT #### [facility] [address] [place] [address] Sodium [Moles/Vol] 141 mmol/L Normal 135-145 [facility] Comment on above: Performed By: #### K ETT #### [facility] [address] [place] [address] Beta Hydroxybutyrateon 03-17 Beta Hydroxybutyrate 16.30 mg/dL High 0.20-2.81 [facility] Comment on above: Performed By: #### K ETT #### [facility] [address] [place] [address] Glucose,Bedsideon 03-17-2019 Glucose [Mass/Vol] 169 mg/dL High 70-100 [facility] Comment on above: Result Comment: Test performed by glucose meter. Results may be 10%-15% lower than serum/plasma values. (CLIA ID [id number]) Performed By: #### K ETT #### [facility] [address] [place] [address] Glucose [Mass/Vol] 106 mg/dL High 70-100 [facility] Comment on above: Result Comment: Test performed by glucose meter. Results may be 10%-15% lower than serum/plasma values. (CLIA ID [id number]) Performed By: #### K ETT #### [facility] [address] [place] [address] Hemogram w/ Autodiffon 03-17 Abs Baso Cnt 0.0 10*3/uL Normal 0.0-0.2 [facility] Comment on above: Performed By: #### K ETT #### [facility] [address] [place] [address] Abs Neutrophile Cnt 3.1 10*3/uL Normal 1.8-7.0 [facility] Comment on above: Performed By: #### K ETT #### [facility] [address] [place] [address] Basophils/100 WBC (Bld) 0.3 % Normal 0.0-2.0 [facility] Comment on above: Performed By: #### K ETT #### [facility] [address] [place] [address] Eosinophils (Bld) [#/Vol] 0.1 10*3/uL Normal 0.0-0.5 [facility] Comment on above: Performed By: #### K ETT #### [facility] [address] [place] [address] Eosinophils/100 WBC (Bld) 1.2 % Normal 1.0-6.0 [facility] Comment on above: Performed By: #### K ETT #### [facility] [address] [place] [address] Erythrocyte distribution width (RBC) [Ratio] 12.7 % Normal 11.5-14.5 [facility] Comment on above: Performed By: #### K ETT #### [facility] [address] [place] [address] Granulocytes/100 WBC (Bld) 56.9 % Normal 40.0-80.0 [facility] Comment on above: Performed By: #### K ETT #### [facility] [address] [place] [address] Hematocrit (Bld) [Volume fraction] 34.5 % Low 35.0-47.0 [facility] Comment on above: Performed By: #### K ETT #### [facility] [address] [place] [address] Hemoglobin (Bld) [Mass/Vol] 11.4 g/dL Low 11.7-16.0 [facility] Comment on above: Performed By: #### K ETT #### [facility] [address] [place] [address] Lymphocytes (Bld) [#/Vol] 1.9 10*3/uL Normal 1.0-4.3 [facility] Comment on above: Performed By: #### K ETT #### [facility] [address] [place] [address] Lymphocytes/100 WBC (Bld) 34.8 % Normal 20.0-40.0 [facility] Comment on above: Performed By: #### K ETT #### [place] [address] [place] [address] MCH (RBC) [Entitic mass] 30.0 pg Normal 26.0-34.0 [facility] Comment on above: Performed By: #### K ETT #### [place] [address] [place] [address] MCHC (RBC) [Mass/Vol] 33.1 % Normal 32.0-36.0 [facility] Comment on above: Performed By: #### K ETT #### [place] [address] [place] [address] MCV (RBC) [Entitic vol] 90.7 fL Normal 79.0-98.0 [facility] Comment on above: Performed By: #### K ETT #### [place] [address] [place] [address] Monocytes (Bld) [#/Vol] 0.4 10*3/uL Normal 0.0-0.8 [facility] Comment on above: Performed By: #### K ETT #### [place] [address] [place] [address] Monocytes/100 WBC (Bld) 6.8 % Normal 2.0-10.0 [facility] Comment on above: Performed By: #### K ETT #### [place] [address] [place] [address] Platelet mean volume (Bld) [Entitic vol] 7.2 fL Low 7.4-10.4 [facility] Comment on above: Performed By: #### K ETT #### [place] [address] [place] [address] Platelets (Bld) [#/Vol] 321 10*3/uL Normal 140-440 [facility] Comment on above: Performed By: #### K ETT #### [facility] [address] [place] [address] RBC (Bld) [#/Vol] 3.80 10*6/uL Normal 3.80-5.20 [facility] Comment on above: Performed By: #### K ETT #### [facility] [address] [place] [address] WBC (Bld) [#/Vol] 5.5 10*3/uL Normal 3.6-10.7 [facility] Comment on above: Performed By: #### K ETT #### [place] [address] [place] [address] Magnesiumon 03-17-2019 Magnesium [Mass/Vol] 1.8 mg/dL Normal 1.6-2.3 [facility] Comment on above: Performed By: #### K ETT #### [facility] [address] [place] [address] Basic Metabolic Panelon 02-18 Anion gap [Moles/Vol] 17 Normal [facility] Comment on above: Performed By: #### H CGUR, UAMAC, UAMIC #### [facility] [address] [place] [address] Calcium [Mass/Vol] 8.6 mg/dL Normal 8.4-10.4 [facility] Comment on above: Performed By: #### H CGUR, UAMAC, UAMIC #### [facility] [address] [place] [address] CO2 [Moles/Vol] 16 mmol/L Low 22-30 [facility] Comment on above: Performed By: #### H CGUR, UAMAC, UAMIC #### [facility] [address] [place] [address] Creatinine [Mass/Vol] 0.47 mg/dL Low 0.52-1.25 [facility] Comment on above: Performed By: #### H CGUR, UAMAC, UAMIC #### [facility] [address] [place] [address] GFR/1.73 sq M predicted among blacks MDRD (S/P/Bld) [Vol rate/Area] mL/min/{1.73_m2} Normal >60 [facility] Comment on above: Performed By: #### H CGUR, UAMAC, UAMIC #### [facility] [address] [place] [address] GFR/1.73 sq M predicted among non-blacks MDRD (S/P/Bld) [Vol rate/Area] mL/min/{1.73_m2} Normal >60 [facility] Comment on above: Result Comment: Sour ce- MDRD equation with creatinine calibration to IDMS(NKDEP) eGFR not recommended for drug dose adjustment Performed By: #### H CGUR, UAMAC, UAMIC #### [facility] [address] [place] [address] Glucose [Mass/Vol] 196 mg/dL High 70-100 [facility] Comment on above: Performed By: #### H CGUR, UAMAC, UAMIC #### [facility] [address] [place] [address] Urea nitrogen [Mass/Vol] 3 mg/dL Low 7-20 [facility] Comment on above: Performed By: #### H CGUR, UAMAC, UAMIC #### [facility] [address] [place] [address] Chloride [Moles/Vol] 104 mmol/L Normal 98-107 [facility] Comment on above: Performed By: #### H CGUR, UAMAC, UAMIC #### [facility] [address] [place] [address] Potassium [Moles/Vol] 4.1 mmol/L Normal 3.5-5.1 [facility] Comment on above: Performed By: #### H CGUR, UAMAC, UAMIC #### [facility] [facility] [address] [place] [address] Sodium [Moles/Vol] 137 mmol/L Normal 135-145 [facility] Comment on above: Performed By: #### H CGUR, UAMAC, UAMIC #### [facility] [address] [place] [address] Anion gap [Moles/Vol] 17 Normal [facility] Comment on above: Performed By: #### H CGUR, UAMAC, UAMIC #### [facility] [employer] [facility] [address] [place] [address] Calcium [Mass/Vol] 8.8 mg/dL Normal 8.4-10.4 [facility] Comment on above: Performed By: #### H CGUR, UAMAC, UAMIC #### [facility] [employer] [facility] [address] [place] [address] CO2 [Moles/Vol] 16 mmol/L Low 22-30 [facility] Comment on above: Performed By: #### H CGUR, UAMAC, UAMIC #### [facility] [employer] [facility] [address] [place] [address] Glucose [Mass/Vol] 335 mg/dL High 70-100 [facility] Comment on above: Performed By: #### H CGUR, UAMAC, UAMIC #### [facility] [employer] [facility] [address] [place] [address] Urea nitrogen [Mass/Vol] 3 mg/dL Low 7-20 [facility] Comment on above: Performed By: #### H CGUR, UAMAC, UAMIC #### [facility] [employer] [facility] [address] [place] [address] Creatinine [Mass/Vol] 0.40 mg/dL Low 0.52-1.25 [facility] Comment on above: Performed By: #### H CGUR, UAMAC, UAMIC #### [facility] [employer] [facility] [address] [place] [address] GFR/1.73 sq M predicted among blacks MDRD (S/P/Bld) [Vol rate/Area] mL/min/{1.73_m2} Normal >60 [facility] Comment on above: Performed By: #### H CGUR, UAMAC, UAMIC #### [facility] [employer] [facility] [address] [place] [address] GFR/1.73 sq M predicted among non-blacks MDRD (S/P/Bld) [Vol rate/Area] mL/min/{1.73_m2} Normal >60 [facility] Comment on above: Result Comment: Sour ce- MDRD equation with creatinine calibration to IDMS(NKDEP) eGFR not recommended for drug dose adjustment Performed By: #### H CGUR, UAMAC, UAMIC #### [facility] [address] [place] [address] Chloride [Moles/Vol] 100 mmol/L Normal 98-107 [facility] Comment on above: Performed By: #### H CGUR, UAMAC, UAMIC #### [facility] [address] [place] [address] Potassium [Moles/Vol] 4.3 mmol/L Normal 3.5-5.1 [facility] Comment on above: Performed By: #### H CGUR, UAMAC, UAMIC #### [facility] [address] [place] [address] Sodium [Moles/Vol] 133 mmol/L Low 135-145 [facility] Comment on above: Performed By: #### H CGUR, UAMAC, UAMIC #### [facility] [address] [place] [address] Calcium [Mass/Vol] 8.6 mg/dL Normal 8.4-10.4 [facility] Comment on above: Performed By: #### H CGUR, UAMAC, UAMIC #### [facility] [address] [place] [address] Anion gap [Moles/Vol] 14 Normal [facility] Comment on above: Performed By: #### H CGUR, UAMAC, UAMIC #### [facility] [address] [place] [address] CO2 [Moles/Vol] 17 mmol/L Low 22-30 [facility] Comment on above: Performed By: #### H CGUR, UAMAC, UAMIC #### [facility] [address] [place] [address] Creatinine [Mass/Vol] 0.38 mg/dL Low 0.52-1.25 [facility] Comment on above: Performed By: #### H CGUR, UAMAC, UAMIC #### [facility] [address] [place] [address] GFR/1.73 sq M predicted among blacks MDRD (S/P/Bld) [Vol rate/Area] mL/min/{1.73_m2} Normal >60 [facility] Comment on above: Performed By: #### H CGUR, UAMAC, UAMIC #### [facility] [address] [place] [address] GFR/1.73 sq M predicted among non-blacks MDRD (S/P/Bld) [Vol rate/Area] mL/min/{1.73_m2} Normal >60 [facility] Comment on above: Result Comment: Sour ce- MDRD equation with creatinine calibration to IDMS(NKDEP) eGFR not recommended for drug dose adjustment Performed By: #### H CGUR, UAMAC, UAMIC #### [facility] [address] [place] [address] Glucose [Mass/Vol] 272 mg/dL High 70-100 [facility] Comment on above: Performed By: #### H CGUR, UAMAC, UAMIC #### [facility] [address] [place] [address] Urea nitrogen [Mass/Vol] 3 mg/dL Low 7-20 [facility] Comment on above: Performed By: #### H CGUR, UAMAC, UAMIC #### [facility] [address] [place] [address] Chloride [Moles/Vol] 105 mmol/L Normal 98-107 [facility] Comment on above: Performed By: #### H CGUR, UAMAC, UAMIC #### [facility] [address] [place] [address] Potassium [Moles/Vol] 4.1 mmol/L Normal 3.5-5.1 [facility] Comment on above: Performed By: #### H CGUR, UAMAC, UAMIC #### [facility] [address] [place] [address] Sodium [Moles/Vol] 137 mmol/L Normal 135-145 [facility] Comment on above: Performed By: #### H CGUR, UAMAC, UAMIC #### [facility] [address] [place] [address] Anion gap [Moles/Vol] 13 Normal [facility] Comment on above: Performed By: #### H A1C2, CMP3, LIPD2, TSH5 #### [facility] [address] [place] [address] Calcium [Mass/Vol] 8.5 mg/dL Normal 8.4-10.4 [facility] Comment on above: Performed By: #### H A1C2, CMP3, LIPD2, TSH5 #### [facility] [address] [place] [address] CO2 [Moles/Vol] 16 mmol/L Low 22-30 [facility] Comment on above: Performed By: #### H A1C2, CMP3, LIPD2, TSH5 #### [facility] [address] [place] [address] Creatinine [Mass/Vol] 0.40 mg/dL Low 0.52-1.25 [facility] Comment on above: Performed By: #### H A1C2, CMP3, LIPD2, TSH5 #### [facility] [address] [place] [address] GFR/1.73 sq M predicted among blacks MDRD (S/P/Bld) [Vol rate/Area] mL/min/{1.73_m2} Normal >60 [facility] Comment on above: Performed By: #### H A1C2, CMP3, LIPD2, TSH5 #### [facility] [address] [place] [address] GFR/1.73 sq M predicted among non-blacks MDRD (S/P/Bld) [Vol rate/Area] mL/min/{1.73_m2} Normal >60 [facility] Comment on above: Result Comment: Sour ce- MDRD equation with creatinine calibration to IDMS(NKDEP) eGFR not recommended for drug dose adjustment Performed By: #### H A1C2, CMP3, LIPD2, TSH5 #### [facility] [address] [place] [address] Glucose [Mass/Vol] 190 mg/dL High 70-100 [facility] Comment on above: Performed By: #### H A1C2, CMP3, LIPD2, TSH5 #### [facility] [address] [place] [address] Urea nitrogen [Mass/Vol] 4 mg/dL Low 7-20 [facility] Comment on above: Performed By: #### H A1C2, CMP3, LIPD2, TSH5 #### [facility] [address] [place] [address] Chloride [Moles/Vol] 109 mmol/L High 98-107 [facility] Comment on above: Performed By: #### H A1C2, CMP3, LIPD2, TSH5 #### [facility] [address] [place] [address] Potassium [Moles/Vol] 4.2 mmol/L Normal 3.5-5.1 [facility] Comment on above: Performed By: #### H A1C2, CMP3, LIPD2, TSH5 #### [facility] [address] [place] [address] Sodium [Moles/Vol] 137 mmol/L Normal 135-145 [facility] Comment on above: Performed By: #### H A1C2, CMP3, LIPD2, TSH5 #### [facility] [address] [place] [address] Beta Hydroxybutyrateon 03-16 Beta Hydroxybutyrate 17.90 mg/dL High 0.20-2.81 [facility] Comment on above: Performed By: #### H CGUR, UAMAC, UAMIC #### [facility] [address] [place] [address] Beta Hydroxybutyrate 17.60 mg/dL High 0.20-2.81 [facility] Comment on above: Performed By: #### H CGUR, UAMAC, UAMIC #### [facility] [address] [place] [address] Beta Hydroxybutyrate 12.00 mg/dL High 0.20-2.81 [facility] Comment on above: Performed By: #### H CGUR, UAMAC, UAMIC #### [facility] [address] [place] [address] Beta Hydroxybutyrate 31.00 mg/dL High 0.20-2.81 [facility] Comment on above: Performed By: #### H A1C2, CMP3, LIPD2, TSH5 #### [facility] [address] [place] [address] Comp Metabolic Panelon 03-16 Calcium [Mass/Vol] 8.9 mg/dL Normal 8.4-10.4 [facility] Comment on above: Performed By: #### K ETT #### [facility] [address] [place] [address] ALP [Catalytic activity/Vol] 157 U/L High 38-126 [facility] Comment on above: Performed By: #### K ETT #### [facility] [address] [place] [address] ALT [Catalytic activity/Vol] 26 U/L Normal 13-69 [facility] Comment on above: Performed By: #### K ETT #### [facility] [address] [place] [address] Anion gap [Moles/Vol] 18 Normal [facility] Comment on above: Performed By: #### K ETT #### [facility] [address] [place] [address] AST [Catalytic activity/Vol] 50 U/L High 15-46 [facility] Comment on above: Performed By: #### K ETT #### [facility] [address] [place] [address] CO2 [Moles/Vol] 17 mmol/L Low 22-30 [facility] Comment on above: Performed By: #### K ETT #### [facility] [address] [place] [address] Glucose [Mass/Vol] 172 mg/dL High 70-100 [facility] Comment on above: Performed By: #### K ETT #### [facility] [address] [place] [address] Protein [Mass/Vol] 7.1 g/dL Normal 6.3-8.2 [facility] Comment on above: Performed By: #### K ETT #### [facility] [address] [place] [address] Urea nitrogen [Mass/Vol] 7 mg/dL Normal 7-20 [facility] Comment on above: Performed By: #### K ETT #### [facility] [address] [place] [address] Bilirubin [Mass/Vol] 0.5 mg/dL Normal 0.2-1.3 [facility] Comment on above: Performed By: #### K ETT #### [facility] [address] [place] [address] Creatinine [Mass/Vol] 0.47 mg/dL Low 0.52-1.25 [facility] Comment on above: Performed By: #### K ETT #### [place] [address] [place] [address] GFR/1.73 sq M predicted among blacks MDRD (S/P/Bld) [Vol rate/Area] mL/min/{1.73_m2} Normal >60 [facility] Comment on above: Performed By: #### K ETT #### [place] [address] [place] [address] GFR/1.73 sq M predicted among non-blacks MDRD (S/P/Bld) [Vol rate/Area] mL/min/{1.73_m2} Normal >60 [facility] Comment on above: Result Comment: Sour ce- MDRD equation with creatinine calibration to IDMS(NKDEP) eGFR not recommended for drug dose adjustment Performed By: #### K ETT #### [facility] [address] [place] [address] Albumin [Mass/Vol] 3.6 g/dL Normal 3.5-5.0 [facility] Comment on above: Performed By: #### K ETT #### [facility] [address] [place] [address] Chloride [Moles/Vol] 102 mmol/L Normal 98-107 [facility] Comment on above: Performed By: #### K ETT #### [facility] [address] [place] [address] Potassium [Moles/Vol] 4.1 mmol/L Normal 3.5-5.1 [facility] Comment on above: Performed By: #### K ETT #### [facility] [address] [place] [address] Sodium [Moles/Vol] 138 mmol/L Normal 135-145 [facility] Comment on above: Performed By: #### K ETT #### [facility] [address] [place] [address] ALP [Catalytic activity/Vol] 141 U/L High 38-126 [facility] Comment on above: Performed By: #### H CGUR, UAMAC, UAMIC #### [facility] [address] [place] [address] ALT [Catalytic activity/Vol] 27 U/L Normal 13-69 [facility] Comment on above: Performed By: #### H CGUR, UAMAC, UAMIC #### [facility] [address] [place] [address] AST [Catalytic activity/Vol] 33 U/L Normal 15-46 [facility] Comment on above: Performed By: #### H CGUR, UAMAC, UAMIC #### [facility] [address] [place] [address] Calcium [Mass/Vol] 8.3 mg/dL Low 8.4-10.4 [facility] Comment on above: Performed By: #### H CGUR, UAMAC, UAMIC #### [facility] [address] [place] [address] Glucose [Mass/Vol] 235 mg/dL High 70-100 [facility] Comment on above: Performed By: #### H CGUR, UAMAC, UAMIC #### [facility] [address] [place] [address] Urea nitrogen [Mass/Vol] 4 mg/dL Low 7-20 [facility] Comment on above: Performed By: #### H CGUR, UAMAC, UAMIC #### [facility] [address] [place] [address] Anion gap [Moles/Vol] 10 Normal [facility] Comment on above: Performed By: #### H CGUR, UAMAC, UAMIC #### [facility] [address] [place] [address] Bilirubin [Mass/Vol] 0.6 mg/dL Normal 0.2-1.3 [facility] Comment on above: Performed By: #### H CGUR, UAMAC, UAMIC #### [facility] [address] [place] [address] CO2 [Moles/Vol] 19 mmol/L Low 22-30 [facility] Comment on above: Performed By: #### H CGUR, UAMAC, UAMIC #### [facility] [address] [place] [address] Creatinine [Mass/Vol] 0.35 mg/dL Low 0.52-1.25 [facility] Comment on above: Performed By: #### H CGUR, UAMAC, UAMIC #### [facility] [address] [place] [address] GFR/1.73 sq M predicted among blacks MDRD (S/P/Bld) [Vol rate/Area] mL/min/{1.73_m2} Normal >60 [facility] Comment on above: Performed By: #### H CGUR, UAMAC, UAMIC #### [facility] [address] [place] [address] GFR/1.73 sq M predicted among non-blacks MDRD (S/P/Bld) [Vol rate/Area] mL/min/{1.73_m2} Normal >60 [facility] Comment on above: Result Comment: Sour ce- MDRD equation with creatinine calibration to IDMS(NKDEP) eGFR not recommended for drug dose adjustment Performed By: #### H CGUR, UAMAC, UAMIC #### [facility] [address] [place] [address] Protein [Mass/Vol] 6.4 g/dL Normal 6.3-8.2 [facility] Comment on above: Performed By: #### H CGUR, UAMAC, UAMIC #### [facility] [address] [place] [address] Potassium [Moles/Vol] 4.2 mmol/L Normal 3.5-5.1 [facility] Comment on above: Performed By: #### H CGUR, UAMAC, UAMIC #### [facility] [address] [place] [address] Sodium [Moles/Vol] 135 mmol/L Normal 135-145 [facility] Comment on above: Performed By: #### H CGUR, UAMAC, UAMIC #### [facility] [address] [place] [address] Albumin [Mass/Vol] 3.1 g/dL Low 3.5-5.0 [facility] Comment on above: Performed By: #### H CGUR, UAMAC, UAMIC #### [facility] [address] [place] [address] Chloride [Moles/Vol] 107 mmol/L Normal 98-107 [facility] Comment on above: Performed By: #### H CGUR, UAMAC, UAMIC #### [facility] [address] [place] [address] Glucose,Bedsideon 03-16-2019 Glucose [Mass/Vol] 165 mg/dL High 70-100 [facility] Comment on above: Result Comment: Test performed by glucose meter. Results may be 10%-15% lower than serum/plasma values. (CLIA ID [id number]) Performed By: #### H CGUR, UAMAC, UAMIC #### [facility] [address] [place] [address] Glucose [Mass/Vol] 315 mg/dL High 70-100 [facility] Comment on above: Result Comment: Test performed by glucose meter. Results may be 10%-15% lower than serum/plasma values. (CLIA ID [id number]) Performed By: #### H CGUR, UAMAC, UAMIC #### [facility] [address] [place] [address] Glucose [Mass/Vol] 212 mg/dL High 70-100 [facility] Comment on above: Result Comment: Test performed by glucose meter. Results may be 10%-15% lower than serum/plasma values. (CLIA ID [id number]) Performed By: #### H CGUR, UAMAC, UAMIC #### [facility] [address] [place] [address] Glucose [Mass/Vol] 321 mg/dL High 70-100 [facility] Comment on above: Result Comment: Test performed by glucose meter. Results may be 10%-15% lower than serum/plasma values. (CLIA ID [id number]) Performed By: #### H CGUR, UAMAC, UAMIC #### [facility] [address] [place] [address] Glucose [Mass/Vol] 188 mg/dL High 70-100 [facility] Comment on above: Result Comment: Test performed by glucose meter. Results may be 10%-15% lower than serum/plasma values. (CLIA ID [id number]) Performed By: #### H CGUR, UAMAC, UAMIC #### [employer] [facility] [address] [place] [address] Glucose [Mass/Vol] 266 mg/dL High 70-100 [facility] Comment on above: Result Comment: change management manager Notified; Test performed by glucose meter. Results may be 10%-15% lower than serum/plasma values. (CLIA ID [id number]) Performed By: #### H CGUR, UAMAC, UAMIC #### [employer] [facility] [address] [place] [address] Glucose [Mass/Vol] 171 mg/dL High 70-[address] [place] [address] Comment on above: Result Comment: change management manager Notified; Test performed by glucose meter. Results may be 10%-15% lower than serum/plasma values. (CLIA ID [id number]) Performed By: #### H CGUR, UAMAC, UAMIC #### [employer] [facility] [address] [place] [address] Glucose [Mass/Vol] 146 mg/dL High 70-[address] [place] [address] Comment on above: Result Comment: Test performed by glucose meter. Results may be 10%-15% lower than serum/plasma values. (CLIA ID [id number]) Performed By: #### H CGUR, UAMAC, UAMIC #### [employer] [facility] [address] [place] [address] Glucose [Mass/Vol] 230 mg/dL High 70-[address] [place] [address] Comment on above: Result Comment: Test performed by glucose meter. Results may be 10%-15% lower than serum/plasma values. (CLIA ID [id number]) Performed By: #### H CGUR, UAMAC, UAMIC #### [employer] [facility] [address] [place] [address] Glucose [Mass/Vol] 192 mg/dL High 70-100 [facility] Comment on above: Result Comment: Test performed by glucose meter. Results may be 10%-15% lower than serum/plasma values. (CLIA ID [id number]) Performed By: #### H CGUR, UAMAC, UAMIC #### [facility] [employer] [facility] [address] [place] [address] Glucose [Mass/Vol] 131 mg/dL High 70-100 [facility] Comment on above: Result Comment: Test performed by glucose meter. Results may be 10%-15% lower than serum/plasma values. (CLIA ID [id number]) Performed By: #### H CGUR, UAMAC, UAMIC #### [facility] [employer] [facility] [address] [place] [address] Glucose [Mass/Vol] 169 mg/dL High 70-100 [facility] Comment on above: Result Comment: Test performed by glucose meter. Results may be 10%-15% lower than serum/plasma values. (CLIA ID [id number]) Performed By: #### H CGUR, UAMAC, UAMIC #### [employer] [facility] [address] [place] [address] Glucose [Mass/Vol] 209 mg/dL High 70-100 [facility] Comment on above: Result Comment: Test performed by glucose meter. Results may be 10%-15% lower than serum/plasma values. (CLIA ID [id number]) Performed By: #### H A1C2, CMP3, LIPD2, TSH5 #### [employer] [facility] [address] [place] [address] Glucose [Mass/Vol] 157 mg/dL High 70-[address] [place] [address] Comment on above: Result Comment: Test performed by glucose meter. Results may be 10%-15% lower than serum/plasma values. (CLIA ID [id number]) Performed By: #### H A1C2, CMP3, LIPD2, TSH5 #### [employer] [facility] [address] [place] [address] Glucose [Mass/Vol] 177 mg/dL High 70-100 [facility] Comment on above: Result Comment: Test performed by glucose meter. Results may be 10%-15% lower than serum/plasma values. (CLIA ID [id number]) Performed By: #### H A1C2, CMP3, LIPD2, TSH5 #### [facility] [address] [place] [address] Hemogram w/ Autodiffon 03-16 Abs Baso Cnt 0.1 10*3/uL Normal 0.0-0.2 [facility] Comment on above: Performed By: #### H CGUR, UAMAC, UAMIC #### [facility] [address] [place] [address] Abs Neutrophile Cnt 6.8 10*3/uL Normal 1.8-7.0 [facility] Comment on above: Performed By: #### H CGUR, UAMAC, UAMIC #### [facility] [address] [place] [address] Basophils/100 WBC (Bld) 0.9 % Normal 0.0-2.0 [facility] Comment on above: Performed By: #### H CGUR, UAMAC, UAMIC #### [facility] [address] [place] [address] Eosinophils (Bld) [#/Vol] 0.0 10*3/uL Normal 0.0-0.5 [facility] Comment on above: Performed By: #### H CGUR, UAMAC, UAMIC #### [facility] [address] [place] [address] Eosinophils/100 WBC (Bld) 0.4 % Low 1.0-6.0 [facility] Comment on above: Performed By: #### H CGUR, UAMAC, UAMIC #### [facility] [address] [place] [address] Erythrocyte distribution width (RBC) [Ratio] 12.5 % Normal 11.5-14.5 [facility] Comment on above: Performed By: #### H CGUR, UAMAC, UAMIC #### [facility] [address] [place] [address] Granulocytes/100 WBC (Bld) 68.2 % Normal 40.0-80.0 [facility] Comment on above: Performed By: #### H CGUR, UAMAC, UAMIC #### [facility] [address] [place] [address] Hematocrit (Bld) [Volume fraction] 33.2 % Low 35.0-47.0 [facility] Comment on above: Performed By: #### H CGUR, UAMAC, UAMIC #### [facility] [address] [place] [address] Hemoglobin (Bld) [Mass/Vol] 11.4 g/dL Low 11.7-16.0 [facility] Comment on above: Performed By: #### H CGUR, UAMAC, UAMIC #### [place] [address] [place] [address] Lymphocytes (Bld) [#/Vol] 2.2 10*3/uL Normal 1.0-4.3 [facility] Comment on above: Performed By: #### H CGUR, UAMAC, UAMIC #### [facility] [address] [place] [address] Lymphocytes/100 WBC (Bld) 22.2 % Normal 20.0-40.0 [facility] Comment on above: Performed By: #### H CGUR, UAMAC, UAMIC #### [facility] [address] [place] [address] MCH (RBC) [Entitic mass] 31.1 pg Normal 26.0-34.0 [facility] Comment on above: Performed By: #### H CGUR, UAMAC, UAMIC #### [facility] [address] [place] [address] MCHC (RBC) [Mass/Vol] 34.4 % Normal 32.0-36.0 [facility] Comment on above: Performed By: #### H CGUR, UAMAC, UAMIC #### [facility] [address] [place] [address] MCV (RBC) [Entitic vol] 90.4 fL Normal 79.0-98.0 [facility] Comment on above: Performed By: #### H CGUR, UAMAC, UAMIC #### [facility] [address] [place] [address] Monocytes (Bld) [#/Vol] 0.8 10*3/uL Normal 0.0-0.8 [facility] Comment on above: Performed By: #### H CGUR, UAMAC, UAMIC #### [facility] [address] [place] [address] Monocytes/100 WBC (Bld) 8.3 % Normal 2.0-10.0 [facility] Comment on above: Performed By: #### H CGUR, UAMAC, UAMIC #### [facility] [address] [place] [address] Platelet mean volume (Bld) [Entitic vol] 7.1 fL Low 7.4-10.4 [facility] Comment on above: Performed By: #### H CGUR, UAMAC, UAMIC #### [facility] [address] [place] [address] Platelets (Bld) [#/Vol] 368 10*3/uL Normal 140-440 [facility] Comment on above: Performed By: #### H CGUR, UAMAC, UAMIC #### [facility] [address] [place] [address] RBC (Bld) [#/Vol] 3.67 10*6/uL Low 3.80-5.20 [facility] Comment on above: Performed By: #### H CGUR, UAMAC, UAMIC #### [facility] [address] [place] [address] WBC (Bld) [#/Vol] 10.1 10*3/uL Normal 3.6-10.7 [facility] Comment on above: Performed By: #### H CGUR, UAMAC, UAMIC #### [facility] [address] [place] [address] Lactic Acidon 03-16-2019 Lactate [Moles/Vol] 1.7 mmol/L Normal 0.7-2.0 [facility] Comment on above: Performed By: #### H CGUR, UAMAC, UAMIC #### [facility] [address] [place] [address] Magnesiumon 03-16-2019 Magnesium [Mass/Vol] 1.9 mg/dL Normal 1.6-2.3 [facility] Comment on above: Performed By: #### K ETT #### [facility] [address] [place] [address] Magnesium [Mass/Vol] 1.4 mg/dL Low 1.6-2.3 [facility] Comment on above: Performed By: #### H CGUR, UAMAC, UAMIC #### [facility] [address] [place] [address] Magnesium [Mass/Vol] 1.7 mg/dL Normal 1.6-2.3 [facility] Comment on above: Performed By: #### H CGUR, UAMAC, UAMIC #### [facility] [address] [place] [address] Magnesium [Mass/Vol] 1.7 mg/dL Normal 1.6-2.3 [facility] Comment on above: Performed By: #### H CGUR, UAMAC, UAMIC #### [facility] [address] [place] [address] Magnesium [Mass/Vol] 1.9 mg/dL Normal 1.6-2.3 [facility] Comment on above: Performed By: #### H CGUR, UAMAC, UAMIC #### [facility] [address] [place] [address] Magnesium [Mass/Vol] 1.9 mg/dL Normal 1.6-2.3 [facility] Comment on above: Performed By: #### H A1C2, CMP3, LIPD2, TSH5 #### [facility] [address] [place] [address] Phosphoruson 03-16-2019 Phosphate [Mass/Vol] 2.3 mg/dL Low 2.5-4.5 [facility] Comment on above: Performed By: #### K ETT #### [facility] [address] [place] [address] Phosphate [Mass/Vol] 1.9 mg/dL Low 2.5-4.5 [facility] Comment on above: Performed By: #### H CGUR, UAMAC, UAMIC #### [facility] [address] [place] [address] Phosphate [Mass/Vol] 2.2 mg/dL Low 2.5-4.5 [facility] Comment on above: Performed By: #### H CGUR, UAMAC, UAMIC #### [facility] [address] [place] [address] Phosphate [Mass/Vol] 2.5 mg/dL Normal 2.5-4.5 [facility] Comment on above: Performed By: #### H CGUR, UAMAC, UAMIC #### [facility] [address] [place] [address] Phosphate [Mass/Vol] 2.5 mg/dL Normal 2.5-4.5 [facility] Comment on above: Performed By: #### H CGUR, UAMAC, UAMIC #### [facility] [address] [place] [address] Phosphate [Mass/Vol] 2.3 mg/dL Low 2.5-4.5 [facility] Comment on above: Performed By: #### H A1C2, CMP3, LIPD2, TSH5 #### [facility] [address] [place] [address] Add on test from HISon 03-15 Add on test from HIS Accepted Normal [facility] Comment on above: Result Comment: Spec imen available & acceptable for analysis. Performed By: #### H A1C2, CMP3, LIPD2, TSH5 #### [facility] [address] [place] [address] Add on test from HIS Accepted Normal [facility] Comment on above: Result Comment: Spec imen available & acceptable for analysis. Performed By: #### H A1C2, CMP3, LIPD2, TSH5 #### [facility] [address] [place] [address] Amylaseon 03-15-2019 Amylase [Catalytic activity/Vol] 56 U/L Normal 30-130 [facility] Comment on above: Performed By: #### H A1C2, CMP3, LIPD2, TSH5 #### [facility] [address] [place] [address] Basic Metabolic Panelon 05-2 Anion gap [Moles/Vol] 15 Normal [facility] Comment on above: Performed By: #### H A1C2, CMP3, LIPD2, TSH5 #### [facility] [address] [place] [address] Calcium [Mass/Vol] 8.3 mg/dL Low 8.4-10.4 [facility] Comment on above: Performed By: #### H A1C2, CMP3, LIPD2, TSH5 #### [facility] [address] [place] [address] CO2 [Moles/Vol] 15 mmol/L Low 22-30 [facility] Comment on above: Performed By: #### H A1C2, CMP3, LIPD2, TSH5 #### [facility] [address] [place] [address] Glucose [Mass/Vol] 159 mg/dL High 70-100 [facility] Comment on above: Performed By: #### H A1C2, CMP3, LIPD2, TSH5 #### [facility] [address] [place] [address] Urea nitrogen [Mass/Vol] 6 mg/dL Low 7-20 [facility] Comment on above: Performed By: #### H A1C2, CMP3, LIPD2, TSH5 #### [facility] [address] [place] [address] Creatinine [Mass/Vol] 0.44 mg/dL Low 0.52-1.25 [facility] Comment on above: Performed By: #### H A1C2, CMP3, LIPD2, TSH5 #### [facility] [address] [place] [address] GFR/1.73 sq M predicted among blacks MDRD (S/P/Bld) [Vol rate/Area] mL/min/{1.73_m2} Normal >60 [facility] Comment on above: Performed By: #### H A1C2, CMP3, LIPD2, TSH5 #### [facility] [address] [place] [address] GFR/1.73 sq M predicted among non-blacks MDRD (S/P/Bld) [Vol rate/Area] mL/min/{1.73_m2} Normal >60 [facility] Comment on above: Result Comment: Sour ce- MDRD equation with creatinine calibration to IDMS(NKDEP) eGFR not recommended for drug dose adjustment Performed By: #### H A1C2, CMP3, LIPD2, TSH5 #### [facility] [address] [place] [address] Chloride [Moles/Vol] 112 mmol/L High 98-107 [facility] Comment on above: Performed By: #### H A1C2, CMP3, LIPD2, TSH5 #### [facility] [address] [place] [address] Potassium [Moles/Vol] 4.7 mmol/L Normal 3.5-5.1 [facility] Comment on above: Performed By: #### H A1C2, CMP3, LIPD2, TSH5 #### [facility] [address] [place] [address] Sodium [Moles/Vol] 141 mmol/L Normal 135-145 [facility] Comment on above: Performed By: #### H A1C2, CMP3, LIPD2, TSH5 #### [facility] [address] [place] [address] Calcium [Mass/Vol] 9.4 mg/dL Normal 8.4-10.4 [facility] Comment on above: Performed By: #### H A1C2, CMP3, LIPD2, TSH5 #### [facility] [address] [place] [address] Glucose [Mass/Vol] 330 mg/dL High 70-100 [facility] Comment on above: Performed By: #### H A1C2, CMP3, LIPD2, TSH5 #### [facility] [address] [place] [address] Anion gap [Moles/Vol] 27 Normal [facility] Comment on above: Performed By: #### H A1C2, CMP3, LIPD2, TSH5 #### [facility] [address] [place] [address] CO2 [Moles/Vol] 10 mmol/L Low 22-30 [facility] Comment on above: Performed By: #### H A1C2, CMP3, LIPD2, TSH5 #### [facility] [address] [place] [address] Creatinine [Mass/Vol] 0.62 mg/dL Normal 0.52-1.25 [facility] Comment on above: Performed By: #### H A1C2, CMP3, LIPD2, TSH5 #### [facility] [address] [place] [address] GFR/1.73 sq M predicted among blacks MDRD (S/P/Bld) [Vol rate/Area] mL/min/{1.73_m2} Normal >60 [facility] Comment on above: Performed By: #### H A1C2, CMP3, LIPD2, TSH5 #### [facility] [address] [place] [address] GFR/1.73 sq M predicted among non-blacks MDRD (S/P/Bld) [Vol rate/Area] mL/min/{1.73_m2} Normal >60 [facility] Comment on above: Result Comment: Sour ce- MDRD equation with creatinine calibration to IDMS(NKDEP) eGFR not recommended for drug dose adjustment Performed By: #### H A1C2, CMP3, LIPD2, TSH5 #### [facility] [address] [place] [address] Urea nitrogen [Mass/Vol] 10 mg/dL Normal 7-20 [facility] Comment on above: Performed By: #### H A1C2, CMP3, LIPD2, TSH5 #### [facility] [address] [place] [address] Chloride [Moles/Vol] 106 mmol/L Normal 98-107 [facility] Comment on above: Performed By: #### H A1C2, CMP3, LIPD2, TSH5 #### [facility] [address] [place] [address] Potassium [Moles/Vol] 5.2 mmol/L High 3.5-5.1 [facility] Comment on above: Performed By: #### H A1C2, CMP3, LIPD2, TSH5 #### [facility] [address] [place] [address] Sodium [Moles/Vol] 143 mmol/L Normal 135-145 [facility] Comment on above: Performed By: #### H A1C2, CMP3, LIPD2, TSH5 #### [facility] [address] [place] [address] Beta Hydroxybutyrateon 03-15 Beta Hydroxybutyrate 81.10 mg/dL High 0.20-2.81 [facility] Comment on above: Performed By: #### H A1C2, CMP3, LIPD2, TSH5 #### [facility] [address] [place] [address] Beta Hydroxybutyrate 48.50 mg/dL High 0.20-2.81 [facility] Comment on above: Performed By: #### H A1C2, CMP3, LIPD2, TSH5 #### [facility] [address] [place] [address] CR Chest Portableon 03-15-20 19 CR Chest Portable Patient Name: SANTIAGO JACOBSEN Diagnostic Radiology Exam Date/Time 03/15/2019 14:08:11 EDT Exam CR Chest Portable Ordering Physician CODY WARD Accession Number [id number] CPT4 Codes 80470 () Reason For Exam weakness, fatigue, upper back pain Report Portable semiupright AP view of the chest, 03/15/2019. Reason for examination: Chest and back pain. Nausea. COMPARISON: None available. FINDINGS: Cardiac size is within normal limits. Pulmonary vasculature is normal. The lungs are essentially clear. No pleural effusion or pneumothorax is identified. Osseous structures appear grossly intact. IMPRESSION: No acute cardiopulmonary disease detected. Report Dictated on Final Dictating Physician: MD SPAIN JOE M Signed Date and Time: 03/15/2019 3:31 pm Signed by: MD SPAIN JOE M Transcribed Date and Time: 03/15/2019 3:33 Normal [facility] CT Abdomen/Pelvis w/ Contras ton 03-15-2019 CT Abdomen/Pelvis w/ Contrast Patient Name: SANTIAGO JACOBSEN CT Exam Date/Time 03/15/2019 15:34:[address] Abdomen/Pelvis w/ IV Contrast (IV Onl Ordering Physician KRISTIE OSHEA DANIEL M Accession Number [id number] CPT4 Codes 93753 (CT Abdomen/Pelvis w/ IV Contrast (IV Onl), Q9967 (CT ISOVUE 370MG/[id number] dMLand1) Reason For Exam ABDOMINAL PAIN Report CT ABDOMEN AND PELVIS WITH CONTRAST EXAM DATE AND TIME: 03/15/2019 3:34 PM EDT INDICATION: 19 years Female with abdominal pain COMPARISON: None TECHNIQUE: Transaxial sequence through the abdomen and pelvis with 3 mm reconstruction with dynamic intravenous infusion of 75 mL of 370 mg% contrast media. Coronal and sagittal reconstructions included. Dose reduction was employed with automated exposure control. FINDINGS: Chest base: Normal. Liver: Generalized diminished attenuation as compared to the spleen, corresponding to diffuse fatty infiltration. The liver is enlarged. No focal lesion. Biliary tree: Normal caliber. The gallbladder is nondistended. Spleen: Normal. Adrenals: Normal. Pancreas: Normal. Kidneys: Symmetric contrast enhancement without hydronephrosis. No focal lesion. Free fluid: None. Retroperitoneal/mesenter ic lymphadenopathy: None. Bowel: Normal caliber. Nondistended appendix. Aorta: Normal caliber. Abdominal wall: Normal. Pelvic organs/viscera: No mass identified. Pelvic lymphadenopathy: None. Osseous structures: Normal. IMPRESSION: No acute abdominopelvic process. Hepatomegaly and hepatic steatosis. Report Dictated on Final Dictating Physician: MD FELIZ NICHOLAS Signed Date and Time: 03/15/2019 3:51 pm Signed by: MD FELIZ NICHOLAS Transcribed Date and Time: 03/15/2019 3:52 Normal [facility] Comp Metabolic Panelon 03-15 Glucose [Mass/Vol] 584 mg/dL Critically high 70-100 [facility] Comment on above: Performed By: #### H A1C2, CMP3, LIPD2, TSH5 #### [facility] [address] [place] [address] Potassium [Moles/Vol] 6.2 mmol/L Critically high 3.5-5.1 [facility] Comment on above: Performed By: #### H A1C2, CMP3, LIPD2, TSH5 #### [facility] [address] [place] [address] ALP [Catalytic activity/Vol] 288 U/L High 38-126 [facility] Comment on above: Performed By: #### H A1C2, CMP3, LIPD2, TSH5 #### [facility] [address] [place] [address] ALT [Catalytic activity/Vol] 33 U/L Normal 13-69 [facility] Comment on above: Performed By: #### H A1C2, CMP3, LIPD2, TSH5 #### [facility] [address] [place] [address] Anion gap [Moles/Vol] 37 Critically high [facility] Comment on above: Performed By: #### H A1C2, CMP3, LIPD2, TSH5 #### [facility] [address] [place] [address] AST [Catalytic activity/Vol] 38 U/L Normal 15-46 [facility] Comment on above: Performed By: #### H A1C2, CMP3, LIPD2, TSH5 #### [facility] [address] [place] [address] Bilirubin [Mass/Vol] 0.7 mg/dL Normal 0.2-1.3 [facility] Comment on above: Performed By: #### H A1C2, CMP3, LIPD2, TSH5 #### [facility] [address] [place] [address] Calcium [Mass/Vol] 10.5 mg/dL High 8.4-10.4 [facility] Comment on above: Performed By: #### H A1C2, CMP3, LIPD2, TSH5 #### [facility] [address] [place] [address] CO2 [Moles/Vol] 7 mmol/L Low 22-30 [facility] Comment on above: Performed By: #### H A1C2, CMP3, LIPD2, TSH5 #### [facility] [address] [place] [address] Creatinine [Mass/Vol] 0.80 mg/dL Normal 0.52-1.25 [facility] Comment on above: Performed By: #### H A1C2, CMP3, LIPD2, TSH5 #### [facility] [address] [place] [address] GFR/1.73 sq M predicted among blacks MDRD (S/P/Bld) [Vol rate/Area] mL/min/{1.73_m2} Normal >60 [facility] Comment on above: Performed By: #### H A1C2, CMP3, LIPD2, TSH5 #### [facility] [address] [place] [address] GFR/1.73 sq M predicted among non-blacks MDRD (S/P/Bld) [Vol rate/Area] mL/min/{1.73_m2} Normal >60 [facility] Comment on above: Result Comment: Sour ce- MDRD equation with creatinine calibration to IDMS(NKDEP) eGFR not recommended for drug dose adjustment Performed By: #### H A1C2, CMP3, LIPD2, TSH5 #### [facility] [address] [place] [address] Protein [Mass/Vol] 9.5 g/dL High 6.3-8.2 [facility] Comment on above: Performed By: #### H A1C2, CMP3, LIPD2, TSH5 #### [facility] [address] [place] [address] Urea nitrogen [Mass/Vol] 12 mg/dL Normal 7-20 [facility] Comment on above: Performed By: #### H A1C2, CMP3, LIPD2, TSH5 #### [facility] [address] [place] [address] Albumin [Mass/Vol] 5.0 g/dL Normal 3.5-5.0 [facility] Comment on above: Performed By: #### H A1C2, CMP3, LIPD2, TSH5 #### [facility] [address] [place] [address] Chloride [Moles/Vol] 97 mmol/L Low 98-107 [facility] Comment on above: Performed By: #### H A1C2, CMP3, LIPD2, TSH5 #### [facility] [address] [place] [address] Sodium [Moles/Vol] 141 mmol/L Normal 135-145 [facility] Comment on above: Performed By: #### H A1C2, CMP3, LIPD2, TSH5 #### [facility] [address] [place] [address] Glucose,Bedsideon 03-15-2019 Glucose [Mass/Vol] 189 mg/dL High 70-100 [facility] Comment on above: Result Comment: Test performed by glucose meter. Results may be 10%-15% lower than serum/plasma values. (CLIA ID [id number]) Performed By: #### H A1C2, CMP3, LIPD2, TSH5 #### [facility] [address] [place] [address] Glucose [Mass/Vol] 150 mg/dL High 70-100 [facility] Comment on above: Result Comment: Test performed by glucose meter. Results may be 10%-15% lower than serum/plasma values. (CLIA ID [id number]) Performed By: #### H A1C2, CMP3, LIPD2, TSH5 #### [facility] [address] [place] [address] Glucose [Mass/Vol] 140 mg/dL High 70-100 [facility] Comment on above: Result Comment: Test performed by glucose meter. Results may be 10%-15% lower than serum/plasma values. (CLIA ID [id number]) Performed By: #### H A1C2, CMP3, LIPD2, TSH5 #### [facility] [address] [place] [address] Glucose [Mass/Vol] 134 mg/dL High 70-100 [facility] Comment on above: Result Comment: Test performed by glucose meter. Results may be 10%-15% lower than serum/plasma values. (CLIA ID [id number]) Performed By: #### H A1C2, CMP3, LIPD2, TSH5 #### [facility] [address] [place] [address] Glucose [Mass/Vol] 173 mg/dL High 70-100 [facility] Comment on above: Result Comment: Test performed by glucose meter. Results may be 10%-15% lower than serum/plasma values. (CLIA ID [id number]) Performed By: #### H A1C2, CMP3, LIPD2, TSH5 #### [facility] [address] [place] [address] Glucose [Mass/Vol] 326 mg/dL High 70-100 [facility] Comment on above: Result Comment: Test performed by glucose meter. Results may be 10%-15% lower than serum/plasma values. (CLIA ID [id number]) Performed By: #### H A1C2, CMP3, LIPD2, TSH5 #### [facility] [address] [place] [address] HCG,Urine Qualon 03-15-2019 Beta HCG ( test) Ql (U) Negative Normal Negative [facility] Comment on above: Result Comment: Preg carlos enrique is the most common reason for HCG in urine, although choriocarcinoma, hydatidiform mole, and certain nontropho- blastic malignancies also result in detectable urinary HCG levels. Sensitivity = 20mIU/mL. Performed By: #### H CGUR, UAMAC, UAMIC #### [facility] [address] [place] [address] Hemogram w/ Autodiffon 03-15 Abs Baso Cnt 0.2 10*3/uL Normal 0.0-0.2 [facility] Comment on above: Performed By: #### H A1C2, CMP3, LIPD2, TSH5 #### [facility] [address] [place] [address] Abs Neutrophile Cnt 23.1 10*3/uL High 1.8-7.0 [facility] Comment on above: Performed By: #### H A1C2, CMP3, LIPD2, TSH5 #### [facility] [address] [place] [address] Basophils/100 WBC (Bld) 0.7 % Normal 0.0-2.0 [facility] Comment on above: Performed By: #### H A1C2, CMP3, LIPD2, TSH5 #### [facility] [address] [place] [address] Eosinophils (Bld) [#/Vol] 0.0 10*3/uL Normal 0.0-0.5 [facility] Comment on above: Performed By: #### H A1C2, CMP3, LIPD2, TSH5 #### [facility] [address] [place] [address] Eosinophils/100 WBC (Bld) 0.0 % Low 1.0-6.0 [facility] Comment on above: Performed By: #### H A1C2, CMP3, LIPD2, TSH5 #### [facility] [address] [place] [address] Erythrocyte distribution width (RBC) [Ratio] 13.0 % Normal 11.5-14.5 [facility] Comment on above: Performed By: #### H A1C2, CMP3, LIPD2, TSH5 #### [facility] [address] [place] [address] Granulocytes/100 WBC (Bld) 91.2 % High 40.0-80.0 [facility] Comment on above: Performed By: #### H A1C2, CMP3, LIPD2, TSH5 #### [facility] [address] [place] [address] Hematocrit (Bld) [Volume fraction] 48.4 % High 35.0-47.0 [facility] Comment on above: Performed By: #### H A1C2, CMP3, LIPD2, TSH5 #### [facility] [address] [place] [address] Hemoglobin (Bld) [Mass/Vol] 16.0 g/dL Normal 11.7-16.0 [facility] Comment on above: Performed By: #### H A1C2, CMP3, LIPD2, TSH5 #### [facility] [address] [place] [address] Lymphocytes (Bld) [#/Vol] 1.5 10*3/uL Normal 1.0-4.3 [facility] Comment on above: Performed By: #### H A1C2, CMP3, LIPD2, TSH5 #### [facility] [address] [place] [address] Lymphocytes/100 WBC (Bld) 6.1 % Low 20.0-40.0 [facility] Comment on above: Performed By: #### H A1C2, CMP3, LIPD2, TSH5 #### [facility] [address] [place] [address] MCH (RBC) [Entitic mass] 31.3 pg Normal 26.0-34.0 [facility] Comment on above: Performed By: #### H A1C2, CMP3, LIPD2, TSH5 #### [facility] [address] [place] [address] MCHC (RBC) [Mass/Vol] 33.0 % Normal 32.0-36.0 [facility] Comment on above: Performed By: #### H A1C2, CMP3, LIPD2, TSH5 #### [facility] [address] [place] [address] MCV (RBC) [Entitic vol] 94.8 fL Normal 79.0-98.0 [facility] Comment on above: Performed By: #### H A1C2, CMP3, LIPD2, TSH5 #### [facility] [address] [place] [address] Monocytes (Bld) [#/Vol] 0.5 10*3/uL Normal 0.0-0.8 [facility] Comment on above: Performed By: #### H A1C2, CMP3, LIPD2, TSH5 #### [facility] [address] [place] [address] Monocytes/100 WBC (Bld) 2.0 % Normal 2.0-10.0 [facility] Comment on above: Performed By: #### H A1C2, CMP3, LIPD2, TSH5 #### [facility] [address] [place] [address] Platelet mean volume (Bld) [Entitic vol] 7.8 fL Normal 7.4-10.4 [facility] Comment on above: Performed By: #### H A1C2, CMP3, LIPD2, TSH5 #### [facility] [address] [place] [address] Platelets (Bld) [#/Vol] 713 10*3/uL High 140-440 [facility] Comment on above: Performed By: #### H A1C2, CMP3, LIPD2, TSH5 #### [facility] [address] [place] [address] RBC (Bld) [#/Vol] 5.10 10*6/uL Normal 3.80-5.20 [facility] Comment on above: Performed By: #### H A1C2, CMP3, LIPD2, TSH5 #### [facility] [address] [place] [address] WBC (Bld) [#/Vol] 25.4 10*3/uL High 3.6-10.7 [facility] Comment on above: Performed By: #### H A1C2, CMP3, LIPD2, TSH5 #### [facility] [address] [place] [address] Ketones, Quant Bloodon 03-15 Ketones, Quant Blood Small (15) Abnormal Negative [facility] Comment on above: Performed By: #### K ETT #### [facility] [address] [place] [address] Lactic Acidon 03-15-2019 Lactate [Moles/Vol] 3.3 mmol/L Critically high 0.7-2.0 [facility] Comment on above: Performed By: #### L ACT3, MG3, CMP3, HEMDF, RBCMO, LIPA4 #### [facility] [address] [place] [address] #### BHB #### [facility] [address] [place] [address] Lipaseon 03-15-2019 Lipase [Catalytic activity/Vol] 42 U/L Normal 23-300 [facility] Comment on above: Performed By: #### H A1C2, CMP3, LIPD2, TSH5 #### [facility] [address] [place] [address] Magnesiumon 03-15-2019 Magnesium [Mass/Vol] 2.0 mg/dL Normal 1.6-2.3 [facility] Comment on above: Performed By: #### H A1C2, CMP3, LIPD2, TSH5 #### [facility] [address] [place] [address] Magnesium [Mass/Vol] 2.1 mg/dL Normal 1.6-2.3 [facility] Comment on above: Performed By: #### H A1C2, CMP3, LIPD2, TSH5 #### [facility] [address] [place] [address] Magnesium [Mass/Vol] 2.2 mg/dL Normal 1.6-2.3 [facility] Comment on above: Performed By: #### L ACT3, MG3, CMP3, HEMDF, RBCMO, LIPA4 #### [facility] [address] [place] [address] #### BHB #### [facility] [address] [place] [address] Phosphoruson 03-15-2019 Phosphate [Mass/Vol] 2.4 mg/dL Low 2.5-4.5 [facility] Comment on above: Performed By: #### H A1C2, CMP3, LIPD2, TSH5 #### [facility] [address] [place] [address] Phosphate [Mass/Vol] 4.2 mg/dL Normal 2.5-4.5 [facility] Comment on above: Performed By: #### H A1C2, CMP3, LIPD2, TSH5 #### [facility] [address] [place] [address] RBC Morphologyon 03-15-2019 RBC morphology finding Nom (Bld) Normal Normal [facility] Comment on above: Performed By: #### H A1C2, CMP3, LIPD2, TSH5 #### [facility] [address] [place] [address] Urinalysis,Macroon 9 Appearance (U) CLOUDY Normal Clear [facility] Comment on above: Performed By: #### H CGUR, UAMAC, UAMIC #### [facility] [address] [place] [address] Bilirubin,Ur Positive Normal Negative [facility] Comment on above: Performed By: #### H CGUR, UAMAC, UAMIC #### [facility] [address] [place] [address] Color (U) YELLOW Normal Lt. Yellow [facility] Comment on above: Performed By: #### H CGUR, UAMAC, UAMIC #### [facility] [address] [place] [address] Glucose Ql (U) 4 + mg/dL Normal Negative [facility] Comment on above: Performed By: #### H CGUR, UAMAC, UAMIC #### [facility] [address] [place] [address] Ketone,Urine >= 160 Normal Negative [facility] Comment on above: Performed By: #### H CGUR, UAMAC, UAMIC #### [facility] [address] [place] [address] Nitrite Ql (U) Negative Normal Negative [facility] Comment on above: Performed By: #### H CGUR, UAMAC, UAMIC #### [facility] [address] [place] [address] Occult Blood,Ur TRACE Normal Negative [facility] Comment on above: Performed By: #### H CGUR, UAMAC, UAMIC #### [facility] [address] [place] [address] pH (U) 5.0 Normal 5.0-8.0 [facility] Comment on above: Performed By: #### H CGUR, UAMAC, UAMIC #### [facility] [address] [place] [address] Protein (U) [Mass/Vol] 2 + mg/dL Normal Negative [facility] Comment on above: Performed By: #### H CGUR, UAMAC, UAMIC #### [facility] [address] [place] [address] Specific Nesbit,Urine 1.025 Normal 1.005-1.030 [facility] Comment on above: Performed By: #### H CGUR, UAMAC, UAMIC #### [facility] [address] [place] [address] Urobilinogen Qn (U) 0.2 mg/dL Normal 0-1 [facility] Comment on above: Performed By: #### H CGUR, UAMAC, UAMIC #### [facility] [address] [place] [address] WBC (Bld) [#/Vol] Negative Normal Negative [facility] Comment on above: Performed By: #### H CGUR, UAMAC, UAMIC #### [facility] [address] [place] [address] Urinalysis,Microscopicon Bacteria LM.HPF (Urine sed) [#/Area] Few (1-5) Normal Negative [facility] Comment on above: Performed By: #### H CGUR, UAMAC, UAMIC #### [facility] [employer]like [facility] [address] [place] [address] Cast, Hyaline 0 - 2 Normal 0-1 [facility] Comment on above: Performed By: #### H CGUR, UAMAC, UAMIC #### [facility] [address] [place] [address] Epithelial cells LM.HPF (Urine sed) [#/Area] 6 - 10 Normal 3-5 [facility] Comment on above: Performed By: #### H CGUR, UAMAC, UAMIC #### [facility] [address] [place] [address] RBC LM.HPF (Urine sed) [#/Area] 0 - 2 Normal 0-2 [facility] Comment on above: Performed By: #### H CGUR, UAMAC, UAMIC #### [facility] [address] [place] [address] WBC LM.HPF (Urine sed) [#/Area] 6 - 10 Normal 0-5 [facility] Comment on above: Performed By: #### H CGUR, UAMAC, UAMIC #### [facility] [address] [place] [address] Venous Blood Gas Respiratory on 03-15-2019 Base Excess -19.9 mmol/L Low -3.0-3.0 [facility] Comment on above: Performed By: #### H CGUR, UAMAC, UAMIC #### [facility] [address] [place] [address] CO2 [Moles/Vol] 8.7 mmol/L Low 24.0-28.0 [facility] Comment on above: Result Comment: Perf ormed by CLIA ID: [id number] [place], [place] Performed By: #### H CGUR, UAMAC, UAMIC #### [facility] [address] [place] [address] HCO3 (Bld) [Moles/Vol] 7.9 mmol/L Low 23.0-27.0 [facility] Comment on above: Performed By: #### H CGUR, UAMAC, UAMIC #### [facility] [address] [place] [address] Oxygen (Bld) [Partial pressure] 49.3 mm[Hg] Normal 30.0-50.0 [facility] Comment on above: Performed By: #### H CGUR, UAMAC, UAMIC #### [facility] [address] [place] [address] Oxygen saturation in Blood 71.6 % Normal 60.0-85.0 [facility] Comment on above: Performed By: #### H CGUR, UAMAC, UAMIC #### [facility] [address] [place] [address] pCO2 24.9 mm[Hg] Low 40.0-55.0 [facility] Comment on above: Performed By: #### H CGUR, UAMAC, UAMIC #### [facility] [address] [place] [address] pH (Bld) 7.109 Low 7.330-7.430 [facility] Comment on above: Performed By: #### H CGUR, UAMAC, UAMIC #### [facility] [address] [place] [address] Comp Metabolic Panelon 02-02 ALP [Catalytic activity/Vol] 180 U/L High 38-126 [facility] Comment on above: Performed By: #### H A1C2, CMP3, LIPD2, TSH5 #### [facility] [address] [place] [address] ALT [Catalytic activity/Vol] 43 U/L Normal 13-69 [facility] Comment on above: Performed By: #### H A1C2, CMP3, LIPD2, TSH5 #### [facility] [address] [place] [address] Calcium [Mass/Vol] 10.1 mg/dL Normal 8.4-10.4 [facility] Comment on above: Performed By: #### H A1C2, CMP3, LIPD2, TSH5 #### [facility] [address] [place] [address] Anion gap [Moles/Vol] 23 Normal [facility] Comment on above: Performed By: #### H A1C2, CMP3, LIPD2, TSH5 #### [facility] [address] [place] [address] AST [Catalytic activity/Vol] 35 U/L Normal 15-46 [facility] Comment on above: Performed By: #### H A1C2, CMP3, LIPD2, TSH5 #### [facility] [address] [place] [address] Bilirubin [Mass/Vol] 0.7 mg/dL Normal 0.2-1.3 [facility] Comment on above: Performed By: #### H A1C2, CMP3, LIPD2, TSH5 #### [facility] [address] [place] [address] CO2 [Moles/Vol] 18 mmol/L Low 22-30 [facility] Comment on above: Performed By: #### H A1C2, CMP3, LIPD2, TSH5 #### [facility] [address] [place] [address] Creatinine [Mass/Vol] 0.53 mg/dL Normal 0.52-1.25 [facility] Comment on above: Performed By: #### H A1C2, CMP3, LIPD2, TSH5 #### [facility] [address] [place] [address] GFR/1.73 sq M predicted among blacks MDRD (S/P/Bld) [Vol rate/Area] mL/min/{1.73_m2} Normal >60 [facility] Comment on above: Performed By: #### H A1C2, CMP3, LIPD2, TSH5 #### [facility] [address] [place] [address] GFR/1.73 sq M predicted among non-blacks MDRD (S/P/Bld) [Vol rate/Area] mL/min/{1.73_m2} Normal >60 [facility] Comment on above: Result Comment: Sour ce- MDRD equation with creatinine calibration to IDMS(NKDEP) eGFR not recommended for drug dose adjustment Performed By: #### H A1C2, CMP3, LIPD2, TSH5 #### [facility] [address] [place] [address] Glucose [Mass/Vol] 278 mg/dL High 70-100 [facility] Comment on above: Performed By: #### H A1C2, CMP3, LIPD2, TSH5 #### [facility] [address] [place] [address] Protein [Mass/Vol] 7.9 g/dL Normal 6.3-8.2 [facility] Comment on above: Performed By: #### H A1C2, CMP3, LIPD2, TSH5 #### [facility] [address] [place] [address] Urea nitrogen [Mass/Vol] 12 mg/dL Normal 7-20 [facility] Comment on above: Performed By: #### H A1C2, CMP3, LIPD2, TSH5 #### [facility] [address] [place] [address] Potassium [Moles/Vol] 4.8 mmol/L Normal 3.5-5.1 [facility] Comment on above: Performed By: #### H A1C2, CMP3, LIPD2, TSH5 #### [facility] [address] [place] [address] Sodium [Moles/Vol] 138 mmol/L Normal 135-145 [facility] Comment on above: Performed By: #### H A1C2, CMP3, LIPD2, TSH5 #### [facility] [address] [place] [address] Albumin [Mass/Vol] 4.4 g/dL Normal 3.5-5.0 [facility] Comment on above: Performed By: #### H A1C2, CMP3, LIPD2, TSH5 #### [facility] [address] [place] [address] Chloride [Moles/Vol] 97 mmol/L Low 98-107 [facility] Comment on above: Performed By: #### H A1C2, CMP3, LIPD2, TSH5 #### [facility] [address] [place] [address] Hemoglobin A1Con 2019 HbA1c (Bld) [Mass fraction] 258 mg/dL Normal [facility] Comment on above: Performed By: #### H A1C2, CMP3, LIPD2, TSH5 #### [facility] [address] [place] [address] HbA1c (Bld) [Mass fraction] 10.6 % High 4.0-5.7 [facility] Comment on above: Result Comment: --Hg bA1C levels may not be accurate in patients who have renal disease, received recent blood transfusions, are anemic, or who have dyshemoglobinemia. Performed By: #### H A1C2, CMP3, LIPD2, TSH5 #### [facility] [address] [place] [address] Lipid Panelon 2019 Cholesterol in HDL [Mass/Vol] 64 mg/dL High 40-60 [facility] Comment on above: Performed By: #### H A1C2, CMP3, LIPD2, TSH5 #### [facility] [address] [place] [address] Cholesterol.total/Deedee sterol in HDL [Mass ratio] 5 Normal [facility] Comment on above: Result Comment: Ref Range: < 3 Low Risk for CHD 3-6 Mod Risk for CHD > 6 High Risk for CHD Performed By: #### H A1C2, CMP3, LIPD2, TSH5 #### [facility] [address] [place] [address] Protein [Mass/Vol] 161 mg/dL Abnormal <100 [facility] Comment on above: Performed By: #### H A1C2, CMP3, LIPD2, TSH5 #### [facility] [address] [place] [address] Triglyceride [Mass/Vol] 326 mg/dL Abnormal <150 [facility] Comment on above: Performed By: #### H A1C2, CMP3, LIPD2, TSH5 #### [facility] [address] [place] [address] Cholesterol [Mass/Vol] 290 mg/dL Abnormal < 200 [facility] Comment on above: Performed By: #### H A1C2, CMP3, LIPD2, TSH5 #### [facility] [address] [place] [address] Thyroid Stim. Hormoneon - Thyroid Stim. Hormone 1.037 u[IU]/mL Normal 0.465-4.68 0 [facility] Comment on above: Performed By: #### H A1C2, CMP3, LIPD2, TSH5 #### [facility] [address] [place] [address] Progress Noteon 07-16-2017 Hog Room Supervisor Authentication Interface Message Text Subjective:Patient ID: Santiago Jacobsen 2000 17 y.o.Diabetes History:Patient ID: Santiago Jacobsen is a 17 y.o. female with Type 1 diabetes. Shereceives insulin via multiple daily injections.The initial diagnosis of diabetes was made February 2003. ICA and CHUCKIE antibodies areunavailable via EMR.Other Endocrine Conditions:Karen's thyroiditisProteinuria noted with Type 1-- NephrologyHypertension associated with Type 1 diabetes--NephrologyHype rcholesterolemia HPI: Santiago Jacobsen was last seen in August 2016 and prior to this [id number] presents today stating that she has just been busy and that is why she hadnot been seen in the office since August 2016. Navarro has accompanied the 17 y.o.to the appointment and stated that she missed appointments due to his health aswell and her lack of transportation. [facility].She graduated high school and is working 40 hours a week. When she was last incontact with the office she was working as well part-time. She stated that sheis following all that has been recommended. Dad commented that they have notseen Nephrology due to their office not having any appointments that work fortheir schedule. She has never followed through with seeing Cardiology forconcerns with her lipids but dad stated that this was on their list to do.We discussed as in visits past the need to transition to an adult practice. Navarrostated that he thought that this was soon and that they have discussed this aswell due to her work schedule and his and trying to make appointments in [place].He commented that he was going to talk to his loom repairer about taking rd a patient. We discussed that the next appointment in three months would bethe last appointment in the practice. If she should choose to no show or cancelthis appointment then they should consider today as the last visit. We reviewedthat we will only provide prescriptions for three months from the lastappointment in the practice and therefore it is in their best interest to workon securing an loom repairer this week. Both navarro and Santiago verbalizedunderstanding and they were instructed to check with other specialists on theirpolicy due to age and compliance with regards to transition and refills.She reports that she is taking Metformin as prescribed and denies any concernswith side effects. She states that she continues to follow with Nephrologyhowever I did point out to them that it was in November 2015 when she was lastseen and refilling prescriptions is not being followed. Navarro states he did notfollow throughout with seeing Cardiology even though it was brought up manytimes with them by myself and Dr. Hale.Social Update: She graduated and is working 40 hours per week at a [employer] History: She reports that she is following all of the correct insulindoses. She denies missed insulin. She is covering all of her CHO includingsnacks. Reports taking her Metformin and Levothyroxine without missed doses.Good energy and no hair loss, dry skin or constipation. Diabetes Management:Glucometer was downloaded and reviewed with the family at the visit. Seescanned document.Trends:Blood sugars: AverageBreakfast 225-306 mg/dL- 2 checksLunch 303-434 mg/dL- 3 checksDinner 236 mg/dL- 2 checksBedtime NONE mg/dLOvernight NONE mg/dLAverage blood sugar 258 mg/dLAverage BG checks 0.4 times per day* skewedReported insulin dose averages (CHO & CF) for past few weeks upon recall in roomwith Santiago 12 checks in 31 days noted Meter date and time was off by two months however she was able to verbalizeher BG reading this morning and the evening before Most BG readings are greater than 240 and many above 325; on hypo event notedof the 12 readings captured Denies any issues with the meter and stated that she has one other meter athome but does not use the meter due to no strips for it. She reports that she uses all features of the Expert meter and enters [facility] but claims that when an adjustment was made at the last in office visitthat she did not know how to change the meter ( reviewed all settings in themeter - personally - and all were correct from her last visit with )REVIEW INSULIN INJECTION 09/12/2015 12/13/2015 05/10/2016 08/20/2016 07/16/2017Types Lantus Lantus (No Data) (No Data) ToujeoDose PM 56 56 64 52 -Types Humalog Humalog Humalog Humalog HumalogBreakfast Unit/gm 1:5 1;5 - 1:5 1:5Lunch Unit/gm 1:5 1:5 - 1:5 1:5Dinner Unit/gm 1:5 1:5 - 1:5 1:5PM Snack Unit/gm - - - - -If BS>--Add--Units (BS/Units) 1:25 over 150 1:50 over 150 - (No Data) 1 forevery 4 starting at 150If BS>--Add--Units (BS/Units) - - - - -If BS >--Add--Units (BS/Units) - - - - -If BS>--Add--Units (BS/Units) - - - - -Diabetes Assessment Review Flowsheet 06/09/2015 09/12/2015 12/13/201507/16/2017 07/16/2017Eye Exam 01/18/2014 01/18/2014 12/13/2015 12/13/2015 12/13/2015 04/19/2017 -Dental Exam 07/20/2014 07/20/2015 07/20/2015 07/20/2015 07/20/2015 07/20/2015 -Dietitian 01/07/2014 01/07/2014 01/07/2014 12/13/2015 05/10/2016 05/10/2016 -Annual Labs 04/08/2014 04/08/2014 09/12/2015 12/13/2015 12/13/2015 04/04/2017 -Microalbumin 01/28/2015 01/28/2015 09/12/2015 12/13/2015 12/13/2015 12/13/2015 -Flu Vaccine 09/02/2014 09/02/2014 09/12/2015 09/12/2015 09/12/2015Checks blood sugar minimum of 4x daily Yes Yes Yes Yes Yes Yes -Changes pump site every 3 days NA NA NA NA NA - -Rotates pump/injection sites Yes Yes Yes Yes Yes Yes -Insulin administered before meals Yes Yes Yes Yes Yes Yes -Takes all insulin Yes Yes Yes Yes Yes - -Checks for ketones Yes Yes Yes Yes Yes Yes -Use of glucagon since last visit No No No No No No -Recognizes hypoglycemia Yes Yes Yes Yes Yes Yes -Follows Rule of 15 to treat lows Yes Yes Yes Yes Yes Yes -Wears a Medic Alert ID Yes Yes No No No No -Prescriptions Yes Yes - Yes No Yes -Alcohol consumption. If yes, how many beverages per week NA NA No No No No -Insulin injections are given by Patient Patient Patient Patient Patient Patient-Patient performs independently Yes Yes Yes Yes Yes Yes -Rotation of sites for injection Arm(s);Abdominal wall;Thigh(s) Arm(s);Abdominalwall;Thi gh(s) Abdominal wall;Arm(s);Thigh(s) Abdominal wall;Arm(s);Thigh(s)Abdo maranda wall;Thigh(s) Abdominal wall;Arm(s) -Exercise active - walk a little active-walking with band active-walking withband active-walking with band -Meal Planning Carbohydrate counting Carbohydrate counting Carbohydrate countingCarbohydrate counting Carbohydrate counting Carbohydrate counting -Compliance with blood glucose monitoring Good Good Good Fair Good Good -Date of diagnosis 02/17/2003 02/17/2003 02/17/2003 02/17/2003 02/17/2003 02/17/2003 ->17 years of age No - No No No No -School Forms Yes - No Yes No No -BMV No - No Yes No No -Medical Records No - No No No No -Patient's medications, allergies, past medical, surgical, , social, andfamily histories were reviewed and updated as appropriate.Patient Active Problem ListDiagnosis Uncontrolled type 1 diabetes mellitus Lymphocytic thyroiditis Hypertension associated with diabetes BMI (body mass index), pediatric, > 99% for age Hypercholesteremia Encounter for long-term (current) insulin useOutpatient Prescriptions Marked as Taking for the 07/16/17 encounter (OfficeVisit) with Krista Hennessy, CNPMedicatjuliet Sig Dispense Refill TOUJEO SOLOSTAR 300 UNIT/ML SOPN Inject up to 60 units at bedtime 9 mL 3 HUMALOG 100 UNIT/ML injection inject up to 80 units a day subcutaneously asdirected 30 mL 3 metFORMIN (GLUCOPHAGE) 1000 MG TAKE ONE TABLET TWICE DAILY 60 Tab 3 lisinopril (PRINIVIL, ZESTRIL) 20 MG TABS tablet TAKE 1 AND 1/2 TABLETS BYMOUTH DAILY 45 Tab 5 Insulin Syringe-Needle U-100 (EASY TOUCH INSULIN SYRINGE) 31G X 5/16 0.5 MLMISC Use as directed to give insulin up to 6 times per day 200 Each 2 MetFORMIN HCl 1000 MG TB24 Take 2,000 mg by mouth daily 30 Each 3 acetone urine test (KETOSTIX) strip Test for ketones with two blood sugarsover 250 or with signs of illness. 50 Each 11 PEN NEEDLE 31G X 8 MM Use as directed to give insulin as prescribed. 150 Each11 levothyroxine (SYNTHROID) 50 MCG tablet Take 1 Tab (50 mcg) by mouth daily 30Tab 11 glucagon (GLUCAGON EMERGENCY) 1 MG Inject 1 mL into the muscle as needed(Hypoglycemia). 2 Kit 11No Known AllergiesReview of SystemsA comprehensive review of systems was negative except for: Eyes: positive forcontacts/glassesPerti nent positive/negatives noted above. All other review of 10 systems arenegative unless otherwise specifiedObjective:BP 140/74 Pulse 115 Ht 157.5 cm Wt 97.9 kg LMP 06/30/2017 (Approximate) BMI 39.47 kg/b2Jfgkh pressure percentiles are >99 % systolic and 81 % diastolic based onNHBPEP's 4th Report. Blood pressure percentile targets: 90: 123/79, 95: 127/83,99 + 5 mmH/95.BP Readings from Last 3 Encounters:07/16/17 140/ 139/ 144/85Wt Readings from Last 3 Encounters:07/16/17 97.9 kg (98 %, Z= 2.16)*04/03/17 95.2 kg (98 %, Z= 2.10)*11/03/16 95 kg (98 %, Z= 2.10) Growth percentiles are based on CDC 2-20 Years data.Ht Readings from Last 3 Encounters:07/16/17 157.5 cm (19 %, Z= -0.88)*09/17/16 154.9 cm (11 %, Z= -1.25)*08/20/16 157.1 cm (18 %, Z= -0.92) Growth percentiles are based on CDC 2-20 Years data.99 %ile (Z= 2.21) based on [facility] 2-20 Years BMI-for-age data using vitals from07/16/2017.Physical ExamVitals reviewed.General appearance: alert, well appearing, cooperative and morbidly obeseOropharynx: normal findings: MMM Eyes: negative findings: conjunctivae and sclerae normal Ears: normal TM's and external ear canals both earsNeck: no adenopathy and thyroid not enlarged, symmetric, notenderness/mass/nodule sThyroid: no palpable noduleLung: clear to auscultation bilaterallyHeart: regular rate and rhythmAbdomen: normal findings: soft, non-tender and abnormal findings: obeseExtremities: extremities normal, atraumatic, no cyanosis or edemaSkin: warm and dry, no hyperpigmentation, vitiligo, or suspicious lesions and +tic méndez, no clinically significant lipohypertrophy, acanthosis nigricans notedposterior neckPulses: 2+ and symmetricNeuro: mental status, speech normal, alert and oriented x3, reflexes normal andsymmetric and gait and station normalGU Mature femaleLabsOffice Visit on 07/16/2017Component Date Value Hemoglobin A1C POC 07/16/2017 9.9*Component Latest Ref Rng & Units 04/04/2017Sodium 133 - 145 mEq/L 135Potassium 3.3 - 5.1 mEq/L 4.2Chloride 96 - 108 mEq/L 106Carbon Dioxide 22.0 - 29.0 mEq/L 20.9 (L)BUN 4 - 19 mg/dL 9Glucose 70 - 99 mg/dL 220 (H)Creatinine 0.50 - 1.00 mg/dL 0.42 (L)Calcium 7.6 - 11.0 mg/dL 8.6Hemoglobin A1C 0.0 - 6.4 % 10.0 (H)T4, Free 0.8 - 1.4 ng/dL 1.2TSH 0.350 - 5.500 uIU/mL 0.897Assessment:Santiago Jacobsen is a 17 y.o. female who has been followed in Endocrinology forher Type 1 Diabetes and Karen's Thyroiditis:Type 1 Diabetes Chronic poor control as noted by Hgb A1c Reported by Santiago that she uses the accu-check expert meter yet noted forpoor use of meter as noted with the download results Lack of BG readings- 12 values for 31 days No carb entries noted and no insulin dose recommendations made by the meter No logbookHashimoto's thyroiditis Clinically euthyroid Last studies noted her to be bio-chemically euthyroid Continue current dose of levothyroxineFollowed by additional specialistsProteinuria associated with diabetes Followed by nephrology--last visit November 2015 Reports that she is not missing medicationHypertension associated with diabetes-followed by nephrology--last visitFebruary 2016Hypercholesteremia Was referred to Cardiology - to Dr. Drake Have yet to follow through with thisPlan: Diabetes Management plan: see below-no changes able to be made due tocompliance Diabetes Education provided: referred to Sewage Plant Operator, blood sugar goals,exercise, self-monitoring of blood glucose skills, nutrition, carbohydratecounting, use of insulin pen, use of sliding scale/correction formula, use ofinsulin: carb ratio and Toujeo - stressed to use the pen only Compliance continues to be POOR. Efforts to improve compliance will bedirected at continuing to increase her motivation and her resources to improveher management, she graduated from high school, she is currently working at [employer]; have discussed transition with her and dad in the past andthey are aware that the next visit is her last visit in the practice. Will needto transfer to an adult practice as that she is partaking in adult behaviors,lack of attempting to improve herself, and no motivation to perform self care Follow up with other specialists-nephrology, preventative cardiology (lipidconcerns have been an issue for years and lack of compliance with follow-up) Continue Metformin 1000 mg bid Continue Levothyroxine 50 mcg po daily Follow-up 3 monthsInsulin Doses as per reported: she stated that she uses the Accu-Chek Expertmeter and enter all carbs - reviewed myself and no entries were noted:Long-acting insulin:Toujeo--52 units at bedtimeShort-acting insulin: HumalogBreakfast: 1 unit for 5 grams of carbohydrateLunch: 1 unit for 5 grams of carbohydrateDinner: 1 unit for 5 grams of carbohydratePM Snack: 1 unit for 5 grams of carbohydrate. If lower BG are noted in themorning, please decrease carb coverage at bedtime snack to 1 units for 7 gramsCorrection Factor Before Meals1 unit of insulin will drop your blood sugar by 25 mg/dLif BS> 150 ADD 1 unitsif BS> 175 ADD 2 unitsif BS> 200 ADD 3 unitsif BS> 225 ADD 4 unitsif BS> 250 ADD 5 unitsif BS> 275 ADD 6 unitsif BS over 300 give 7 unitsAccu-Chek Meter:Target set-up: 100-130Snack limit: 10Active timeout: 3 hoursGOAL 13-19 years <7.5%Goals:1. Increase physical activity - planned exercise for 1 hour an afternoon2. Checking 4 times per day on average3. Continue all other medications.4. Continue following with Nephrology.5. Please keep a logbook and send in photo via [employer] since very few BG numberstoday6. If above 250-330 at bedtime;give Humalog at 1/2 of the recommended correction7. Continue Metformin 1000 mg twice daily8. Continue Levothyroxine 50 mcg daily7. Next appointment is the last chance in the office whether or not you keepthis or cancel this appointment -- You must have an appointment with the adultendocrinologist before your next appointmentCounseling and/or coordination of care (face to face time in the outEndocrinology Clinic was greater than 40 minutes which is more than 50% of thetotal time of 55 minutes spent on the encounter. Counseling consisted of a discussion with the patient and/or family regardingthe diagnosis, impression, current prognosis, recommendations fordiagnostic/annual studies and/or results Risks and/or benefits of treatment plan Instruction for management, treatment and/or follow up according to standardsof practice according to our Endocrinology practice in conjunction with theAmerican Diabetes Association Importance of compliance with chosen treatment options Patient and/or family education Normal [facility] Vital Signs Date Time Vital Sign Value Performing Clinician Facility 05-16-2025 10:10-0400 Body height 157.[address] Skylar Fong MD Work Phone: [facility] 05-16-2025 10:10-0400 Body mass index (BMI) [Ratio] 33.9 kg/m2 Dr. Skylar Fong MD Work Phone: [facility] 05-16-2025 10:10-0400 Body temperature 97.2 [degF] Dr. Skylar Fong MD Work Phone: [facility] 05-16-2025 10:10-0400 Body weight 84.[address] Skylar Fong MD Work Phone: [facility] 05-16-2025 10:10-0400 Diastolic blood pressure 90 mm[Hg] Dr. Skylar Fong MD Work Phone: [facility] 05-16-2025 10:10-0400 Heart rate 100 /min Dr. Skylar Fong MD Work Phone: [facility] 05-16-2025 10:10-0400 Respiratory rate 18 /min Dr. Skylar Fong MD Work Phone: [facility] 05-16-2025 10:10-0400 SaO2% (BldA) [Mass fraction] 97 % Dr. Skylar Fong MD Work Phone: [facility] 05-16-2025 10:10-0400 Systolic blood pressure 152 mm[Hg] Dr. Skylar Fong MD Work Phone: [facility] 03-02-2025 22:35-0400 Body temperature 98.4 [degF] Skylar Fong Work Phone: [facility] 03-02-2025 22:35-0400 Diastolic blood pressure 100 mm[Hg] Skylar Fong Work Phone: [facility] 03-02-2025 22:35-0400 Heart rate 117 /min Skylar Fong Work Phone: [facility] 03-02-2025 22:35-0400 Respiratory rate 16 /min Skylar Fong Work Phone: [facility] 03-02-2025 22:35-0400 SaO2% (BldA) [Mass fraction] 100 % Skylar Fong Work Phone: [facility] 03-02-2025 22:35-0400 Systolic blood pressure 154 mm[Hg] Skylar Fong Work Phone: [facility] 10-25-2024 13:30-0500 Body height 154.9 cm Flory Mcgarry MD Work Phone: [facility] 10-25-2024 13:30-0500 Body mass index (BMI) [Ratio] 29.29 kg/m2 Flory Mcgarry MD Work Phone: [facility] 10-25-2024 13:30-0500 Body weight 70.31 kg Flory Mcgarry MD Work Phone: [facility] 10-25-2024 13:30-0500 Diastolic blood pressure 81 mm[Hg] Flory Mcgarry MD Work Phone: [facility] 10-25-2024 13:30-0500 Heart rate 112 /min Flory Mcgarry MD Work Phone: [facility] 10-25-2024 13:30-0500 Respiratory rate 18 /min Flory Mcgarry MD Work Phone: [facility] 10-25-2024 13:30-0500 SaO2% (BldA) [Mass fraction] 100 % Flory Mcgarry MD Work Phone: [facility] 10-25-2024 13:30-0500 Systolic blood pressure 142 mm[Hg] Flory Mcgarry MD Work Phone: [facility] 10-25-2024 10:47-0500 Body temperature 98.49 [degF] Flory Mcgarry MD Work Phone: [facility] 10-25-2024 09:43-0500 Body mass index (BMI) [Ratio] 31.49 kg/m2 Yesy Ball TAX ACCOUNTING MANAGER.ANESTHESIOLOGY TECH Work Phone: [facility] 10-25-2024 09:43-0500 Body temperature 99.19 [degF] Yesy Ball TAX ACCOUNTING MANAGER.ANESTHESIOLOGY TECH Work Phone: [facility] 10-25-2024 09:43-0500 Body weight 75.6 kg Yesy Ball TAX ACCOUNTING MANAGER.ANESTHESIOLOGY TECH Work Phone: [facility] 10-25-2024 09:43-0500 Diastolic blood pressure 75 mm[Hg] Yesy Ball TAX ACCOUNTING MANAGER.ANESTHESIOLOGY TECH Work Phone: [facility] 10-25-2024 09:43-0500 Heart rate 114 /min Yesy Ball TAX ACCOUNTING MANAGER.ANESTHESIOLOGY TECH Work Phone: [facility] 10-25-2024 09:43-0500 SaO2% (BldA) [Mass fraction] 100 % Yesy Ball TAX ACCOUNTING MANAGER.ANESTHESIOLOGY TECH Work Phone: [facility] 10-25-2024 09:43-0500 Systolic blood pressure 136 mm[Hg] Yesy Ball TAX ACCOUNTING MANAGER.ANESTHESIOLOGY TECH Work Phone: [facility] 08-09-2024 15:20-0400 Body mass index (BMI) [Ratio] 30.99 kg/m2 Brenda Gillespie MD Work Phone: [facility] 08-09-2024 15:20-0400 Body weight 74.39 kg Brenda Gillespie MD Work Phone: [facility] 03-29-2024 09:32-0400 Diastolic Blood Pressure Non-Invasive 93 mm[Hg] DR LAZARO DELGADO MD [facility] 03-29-2024 09:32-0400 Heart rate 113 /min DR LAZARO DELGADO MD [facility] 03-29-2024 09:32-0400 Respiratory rate 18 /min DR LAZARO DELGADO MD [facility] 03-29-2024 09:32-0400 Systolic Blood Pressure Non-Invasive 155 mm[Hg] DR LAZARO DELGADO MD [facility] 03-29-2024 09:20-0400 Body temperature 97.88 [degF] DR LAZARO DELGADO MD [facility] 03-29-2024 09:20-0400 Diastolic Blood Pressure Non-Invasive 86 mm[Hg] DR LAZARO DELGADO MD [facility] 03-29-2024 09:20-0400 Heart rate 104 /min DR LAZARO DELGADO MD [facility] 03-29-2024 09:20-0400 Respiratory rate 22 /min DR LAZARO DELGADO MD [facility] 03-29-2024 09:20-0400 Systolic Blood Pressure Non-Invasive 132 mm[Hg] DR LAZARO DELGADO MD [facility] 03-29-2024 09:15-0400 Diastolic Blood Pressure Non-Invasive 85 mm[Hg] DR LAZARO DELGADO MD [facility] 03-29-2024 09:15-0400 Heart rate 107 /min DR LAZARO DELGADO MD [facility] 03-29-2024 09:15-0400 Respiratory Rate - Anes 15 br/min DR LAZARO DELGADO MD [facility] 03-29-2024 09:15-0400 Systolic Blood Pressure Non-Invasive 131 mm[Hg] DR LAZARO DELGADO MD [facility] 03-29-2024 09:10-0400 Respiratory Rate - Anes 17 br/min DR LAZARO DELGADO MD [facility] 03-29-2024 07:47-0400 Body temperature 97.88 [degF] DR LAZARO DELGADO MD [facility] 03-29-2024 07:47-0400 Body weight [address] LAZARO DELGADO MD [facility] 03-29-2024 07:47-0400 Heart rate 114 /min DR LAZARO DELGADO MD [facility] 03-29-2024 07:47-0400 Respiratory rate 18 /min DR LAZARO DELGADO MD [facility] 03-11-2022 08:08-0400 Body temperature 98.2 [degF] MASTER COOK-C Rimma Tsai MASTER COOK Work Phone: [facility] Work Phone: 03-11-2022 08:08-0400 Diastolic blood pressure 88 mm[Hg] MASTER COOK-C Rimma Tsai MASTER COOK Work Phone: [facility] Work Phone: 03-11-2022 08:08-0400 Heart rate 98 /min MASTER COOK-C Rimma Tsai MASTER COOK Work Phone: [facility] Work Phone: 03-11-2022 08:08-0400 Respiratory rate 18 /min MASTER COOK-C Rimma Tsai MASTER COOK Work Phone: [facility] Work Phone: 03-11-2022 08:08-0400 SaO2% (BldA) [Mass fraction] 100 % MASTER COOK-C Rimma Tsai MASTER COOK Work Phone: [facility] Work Phone: 03-11-2022 08:08-0400 Systolic blood pressure 143 mm[Hg] MASTER COOK-C Rimma Tsai MASTER COOK Work Phone: [facility] Work Phone: 03-11-2022 06:00-0400 Body weight 84.1 kg MASTER COOK-C Rimma Tsai MASTER COOK Work Phone: [facility] Work Phone: 03-10-2022 14:00-0400 Diastolic blood pressure 65 mm[Hg] MASTER COOK-C Rimma Tsai MASTER COOK Work Phone: [facility] Work Phone: 03-10-2022 14:00-0400 Heart rate 110 /min MASTER COOK-C Rimma Tsai MASTER COOK Work Phone: [facility] Work Phone: 03-10-2022 14:00-0400 Respiratory rate 16 /min MASTER COOK-C Rimma Tsai MASTER COOK Work Phone: [facility] Work Phone: 03-10-2022 14:00-0400 SaO2% (BldA) [Mass fraction] 100 % MASTER COOK-C Rimma Tsai MASTER COOK Work Phone: [facility] Work Phone: 03-10-2022 14:00-0400 Systolic blood pressure 129 mm[Hg] MASTER COOK-C Rimma Tsai MASTER COOK Work Phone: [facility] Work Phone: 03-10-2022 12:50-0400 Body height 157.48 cm MASTER COOK-C Rimma Tsai MASTER COOK Work Phone: [facility] Work Phone: 03-10-2022 00:00-0400 Body temperature 97.9 [degF] MASTER COOK-C Rimma Tsai MASTER COOK Work Phone: [facility] Work Phone: 03-09-2022 14:31-0400 Body height 157.48 cm MASTER COOK-C Rimma Tsai MASTER COOK Work Phone: [facility] Work Phone: 03-09-2022 14:31-0400 Body mass index (BMI) [Ratio] 32.5 kg/m2 MASTER COOK-C Rimma Tsai MASTER COOK Work Phone: [facility] Work Phone: 03-09-2022 14:31-0400 Body weight 80.7 kg MASTER COOK-C Rimma Tsai MASTER COOK Work Phone: [facility] Work Phone: 02-08-2022 08:09-0400 Body temperature 98.6 [degF] MASTER COOK-C Rimma Tsai MASTER COOK Work Phone: [facility] Work Phone: 02-08-2022 08:09-0400 Diastolic blood pressure 92 mm[Hg] MASTER COOK-C Rimma Fuson MASTER COOK Work Phone: [facility] Work Phone: 02-08-2022 08:09-0400 Heart rate 102 /min MASTER COOK-C Rimma Fuson MASTER COOK Work Phone: [facility] Work Phone: 02-08-2022 08:09-0400 Respiratory rate 15 /min MASTER COOK-C Rimma Tsai MASTER COOK Work Phone: [facility] Work Phone: 02-08-2022 08:09-0400 SaO2% (BldA) [Mass fraction] 100 % MASTER COOK-C Rimma Tsai MASTER COOK Work Phone: [facility] Work Phone: 02-08-2022 08:09-0400 Systolic blood pressure 138 mm[Hg] MASTER COOK-C Rimma Fuson MASTER COOK Work Phone: [facility] Work Phone: 02-08-2022 05:23-0400 Body weight 86.5 kg MASTER COOK-C Rimma Tsai MASTER COOK Work Phone: [facility] Work Phone: 02-07-2022 10:33-0400 Body height 154.94 cm MASTER COOK-C Rimma Tsai MASTER COOK Work Phone: [facility] Work Phone: 02-05-2022 12:31-0400 Body mass index (BMI) [Ratio] 36.1 kg/m2 MASTER COOK-C Rimma Tsai MASTER COOK Work Phone: [facility] Work Phone: 10-26-2021 13:06-0500 Diastolic blood pressure 77 mm[Hg] MASTER COOK-C Rimma Fuson MASTER COOK Work Phone: [facility] Work Phone: 10-26-2021 13:06-0500 Heart rate 106 /min MASTER COOK-C Rimma Fuson MASTER COOK Work Phone: [facility] Work Phone: 10-26-2021 13:06-0500 Respiratory rate 15 /min MASTER COOK-C Rimma Tsai MASTER COOK Work Phone: [facility] Work Phone: 10-26-2021 13:06-0500 SaO2% (BldA) [Mass fraction] 100 % MASTER COOK-C Rimma Tsai MASTER COOK Work Phone: [facility] Work Phone: 10-26-2021 13:06-0500 Systolic blood pressure 123 mm[Hg] MASTER COOK-Aniyah Tsai MASTER COOK Work Phone: [facility] Work Phone: 10-26-2021 09:59-0500 Body mass index (BMI) [Ratio] 41.5 kg/m2 MASTER COOK-Aniyah Tsai MASTER COOK Work Phone: [facility] Work Phone: 10-26-2021 09:59-0500 Body temperature 96.4 [degF] MASTER COOK-C Rimma Tsai MASTER COOK Work Phone: [facility] Work Phone: 10-26-2021 09:59-0500 Body weight 101.3 kg MASTER COOK-C Rimma Tsai MASTER COOK Work Phone: [facility] Work Phone: Encounters Encounter Date Encounter Type Care Provider Facility Start: 05-17-2025 ambulatory Dorothy Boykin Facility: [facility] Start: 05-16-2025 End: 05-16-[address] Kristin Alejandra MD -[facility] Work Phone: Start: 05-16-2025 End: 05-16-[address] Skylar Fong MD Work Phone: -[facility] Start: 05-09-2025 End: 05-09-2025 Patient encounter procedure Dorothy Boykin MASTER COOK-C -[facility] Work Phone: Start: 05-09-2025 End: 05-09-[address] Skylar Fong MD Work Phone: -[facility] Start: 05-09-2025 End: 05-09-2025 ambulatory Skylar Fong Facility:[facility] Start: 04-25-2025 End: 04-25-[address] Skylar Fong MD Work Phone: -Nuclear Medicine [facility] Start: 04-25-2025 End: 04-25-2025 Patient encounter procedure Dorothy Boykin MASTER COOK-C -[facility]uclear [facility] Work Phone: Start: 04-25-2025 End: 04-25-2025 ambulatory Dorothy Boykin Facility:[facility] Start: 04-19-2025 Non-patient / Non-visit Dr. Maynor Metcalf MD -[facility] Work Phone: Start: 04-15-2025 End: 04-15-[address] Skylar Fong MD Work Phone: -Cat Scan [facility] Start: 04-15-2025 End: 04-15-2025 Patient encounter procedure Dorothy Boykin MASTER COOK-C -Cat Scan [facility] Work Phone: Start: 04-15-2025 End: 04-15-2025 ambulatory Dorothy Boykin Facility:[facility] Start: 04-11-2025 End: 04-11-[address] Skylar Fong MD Work Phone: [facility] Work Phone: Start: 04-11-2025 End: 04-11-2025 Patient encounter procedure Dorothy Boykin MASTER COOK-C -Nuclear Medicine [facility] Work Phone: Start: 04-11-2025 End: 04-11-2025 ambulatory Dorothy Boykin Facility:[facility] Start: 03-25-2025 End: 03-25-2025 Emergency department patient visit SKYLAR FONG Facility:[facility] Start: 03-21-2025 End: 03-21-[address] Skylar Fong MD Work Phone: [facility] Work Phone: Start: 03-21-2025 End: 03-21-2025 Patient encounter procedure Dorothy Boykin MASTER COOK-C -[facility] Work Phone: Start: 03-21-2025 End: 03-21-2025 ambulatory Dorothy Boykin Facility:[facility] Start: 03-07-2025 End: 03-07-2025 Patient encounter procedure Dorothy Boykin MASTER COOK-C -[facility] Work Phone: Start: 03-07-2025 End: 03-07-[address] Skylar Fong MD Work Phone: [facility] Work Phone: Start: 03-02-2025 End: 03-02-2025 Emergency department patient visit SKYLAR FONG [facility] EM[facility] Comment on above: Broken teeth (Primar y Dx); Dental caries; Dental infection; Type 1 diabetes mellitus with hyperglycemia (HCC) Start: 12-20-2024 End: 12-20-[address] Skylar Fong MD Work Phone: [facility] Work Phone: Start: 12-20-2024 End: 12-20-[address] Skylar Fong MD -Laboratory, [place] Work Phone: Start: 12-20-2024 End: 12-20-2024 ambulatory Skylar Fong Facility:[facility] Start: 11-08-2024 End: 11-08-[address] Skylar Fong MD -Radiology, [place] Work Phone: Start: 11-08-2024 End: 11-08-2024 ambulatory Skylar Fong Facility:[facility] Start: 10-25-2024 End: 10-25-2024 Emergency department patient visit Flory Mcgarry MD Work Phone: [facility] Comment on above: Acute conjunctivitis of right eye, unspecified acute conjunctivitis type (Primary Dx); Periorbital cellulitis of right eye Start: 10-25-2024 End: 10-25-2024 ambulatory SKYLAR FONG Facility:[facility] Start: 10-25-2024 End: 10-25-2024 Office outpatient visit 15 minutes Yesy Durand APRN.CNP Work Phone: [facility] Comment on above: Viral URI with cough (Primary Dx); Viral conjunctivitis Start: 08-12-2024 End: 08-12-2024 ambulatory Gladys Petush RPFT [facility] Comment on above: Spirometry Start: 08-12-2024 End: 08-12-2024 Patient encounter procedure Gladys Mckay RPFT [facility] Start: 08-09-2024 End: 08-09-2024 ambulatory BRENDA GILLESPIE Facility:[facility] Start: 08-09-2024 End: 08-09-2024 ambulatory BRENDA GILLESPIE Facility:[facility] Start: 08-09-2024 End: 08-09-2024 Patient encounter procedure Brenda Gillespie MD Work Phone: Pulmonary Medicine Comment on above: 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); Post-COVID chronic cough Start: 08-09-2024 End: 08-09-2024 ambulatory Skylar Fong Facility:[facility] Start: 07-30-2024 End: 07-30-2024 Emergency department patient visit Skylar Fong Facility:[facility] Start: 07-22-2024 End: 07-22-2024 ambulatory Skylar Fong Facility:[facility] Start: 07-06-2024 End: 07-06-2024 ambulatory Skylar Fong Facility:[facility] Start: 06-14-2024 End: 06-14-2024 ambulatory Skylar Fong Facility:[facility] Start: 05-31-2024 End: 05-31-2024 ambulatory Skylar Fong Facility:[facility] Start: 05-27-2024 End: 05-27-2024 ambulatory Skylar Fong Facility:[facility] Start: 05-21-2024 End: 05-21-2024 Emergency department patient visit TRUONG CASTILLO Facility:[facility] Start: 03-29-2024 End: 03-29-2024 ambulatory SKYLAR FONG MD Facility:[facility] Start: 03-29-2024 End: 03-29-[address] LAZARO DELGADO MD [facility] Start: 02-16-2024 End: 02-16-2024 ambulatory [facility] Work Phone: Start: 02-16-2024 End: 02-16-2024 Patient encounter procedure [facility] Work Phone: Start: 09-16-2023 End: 09-16-2023 ambulatory SKYLAR FONG MD Facility: Start: 09-16-2023 End: 09-16-[address] LAZARO DELGADO MD [facility] Start: 08-27-2023 End: 08-27-2023 ambulatory [facility] Work Phone: Start: 08-27-2023 End: 08-27-2023 [facility] Start: 08-18-2023 End: 08-18-2023 ambulatory [facility] Work Phone: Start: 08-18-2023 End: 08-18-2023 Patient encounter procedure [facility] Work Phone: Start: 07-14-2023 End: 07-14-2023 [facility] encounter procedure [facility] Start: 05-19-2023 End: 05-19-2023 ambulatory [facility] Work Phone: Start: 05-19-2023 End: 05-19-2023 Patient encounter procedure [facility] Work Phone: Start: 05-13-2023 End: 05-13-2023 ambulatory [facility] Work Phone: Start: 05-13-2023 End: 05-13-2023 Patient encounter procedure [facility] Start: 04-07-2023 End: 04-07-2023 ambulatory [facility] Work Phone: Start: 04-07-2023 End: 04-07-2023 Patient encounter procedure [facility] Start: 12-27-2022 End: 12-27-2022 Emergency department patient visit KEMAR RIZO Facility:[facility] Start: 09-03-2022 End: 09-03-2022 Emergency department patient visit RIMMA TSAI Facility:[facility] Start: 09-02-2022 End: 09-02-2022 Emergency department patient visit RIMMA TSAI Facility:[facility] Start: 06-14-2022 End: 06-15-2022 Evaluation and management of inpatient TANNER GRANADO Facility:[facility] Start: 06-01-2022 End: 06-03-2022 Evaluation and management of inpatient TANNER GRANADO Facility:[facility] Start: 05-02-2022 Telephone encounter Cathleen ARCOS Comment on above: Follow Up ([facility] int eraction - F/U - attempt made. No answer.) Start: 04-26-2022 End: 04-26-2022 Evaluation and management of inpatient SABINO WILBURN Facility:[facility] Start: 04-24-2022 End: 04-26-2022 Evaluation and management of inpatient QUIN ORNELAS Facility:[facility] Start: 04-02-2022 End: 04-02-2022 Emergency department patient visit RIMMA TSAI Facility:[facility] Start: 03-10-2022 Non-patient / Non-visit MASTER COOK-C D ora Tsai MASTER COOK Work Phone: [facility] Start: 03-09-2022 End: 03-11-2022 Evaluation and management of inpatient MASTER COOK-C Rimma Tsai MASTER COOK Work Phone: [facility]-Intensive Care Unit Start: 02-08-2022 Non-patient / Non-visit MASTER COOK-C D ora Tsai MASTER COOK Work Phone: [facility] Start: 02-07-2022 Non-patient / Non-visit MASTER COOK-C D ora Tsai MASTER COOK Work Phone: [facility] Start: 02-06-2022 Non-patient / Non-visit MA[employer] COOK-C D ora Tsai MASTER COOK Work Phone: [facility] In[facility] Start: 02-05-2022 Non-patient / Non-visit MA[employer] C[employer]-C D ora Tsai MASTER COOK Work Phone: [facility] Start: 02-05-2022 End: 02-08-2022 Evaluation and management of inpatient MASTER COOK-C Rimma Tsai MASTER COOK Work Phone: [facility]-Medical Surgical 3 Start: 10-26-2021 End: 10-26-2021 Emergency department patient visit MASTER COOK-C Rimma Tsai MASTER COOK Work Phone: [facility]-Emergency Department Start: 10-04-2019 End: 10-04-2019 Subsequent hospital visit by physician Cody Lazaro DO Work Phone: [facility] Start: 06-12-2019 End: 06-12-2019 Subsequent hospital visit by physician Yessica Mejia Work Phone: [facility] Start: 07-16-2017 End: 07-16-2017 Ambulatory KRISTA HENNESSY [facility] pital Procedures Date Procedure Procedure Detail Performing Clinician Start: 05-09-[address] Gricelda Fong MD Work Phone: Comment on above: Performed at: [address] Director: Lazaro Caputo PhD, Phone: [phone] Start: 05-09-2025 Antibody to centrome re measurement Dr. Skylar Fong MD Work Phone: Comment on above: Test not performed Start: 05-09-2025 Antibody to extracta ble nuclear antigen measurement Dr. Skylar Fong MD Work Phone: Comment on above: Test not performed Start: 05-09-2025 Antibody to IBETH-[address] Skylar Fong MD Work Phone: Comment on above: Test not performed Start: 05-09-2025 Antibody to lupus La protein measurement Dr. Skylar Fong MD Work Phone: Comment on above: Test not performed Start: 05-09-2025 Antibody to SS-A measurement Dr. Skylar Fong MD Work Phone: Comment on above: Test not performed Start: 05-09-[address] Skylar Fong MD Work Phone: Comment on above: Test not performed Start: 05-09-[address] Skylar west MD Work Phone: Comment on above: Test Ordered: [id number] Enhanced Liver Fibrosis (ELF)ELF(TM) Score 8.04 Reference Range: <9.80ELF(TM) Score Interpretation:Risk cut-offs to assess the likelihood of progressionto cirrhosis and liver-related clinical events within3.9 years following baseline ELF score (IQR: 14.0-22.4months)*: Lower risk < 9.80 Mid risk 9.80 - 11.29 Higher risk >11.29Note: The ELF(TM) Score is a unitless numerical value.*Joe SA, Joni LEE, Renetta T, et al. Selonsertibfor patients with bridging fibrosis or compensatedcirrhosis due to CHA: Results from randomized phaseIII STELLAR trials. J Hepatol. 2020 Apr;73(1):26-39.Performed at: [facility] [employer] [id number] Director: Lorenzo Jon MD, Phone: [phone] at: [employer] [id number] Director: Lazaro Caputo PhD, Phone: [phone] Test Ordered: [id number] AldolaseAldolase 5.1 U/L Reference Range: 3.3-10.3Performed at: [facility] [employer] [id number] Director: Lazaro Caputo PhD, Phone: [phone] Start: 05-09-2025 [employer]OD[employer] antibody measurement Dr. Skylar Fong MD Work Phone: Comment on above: Test not performed Start: 04-25-[address] Skylar Fong MD Work Phone: Start: 04-25-2025 Hepatitis A virus an tibody, IgM type Dr. Skylar Fong MD Work Phone: Comment on above: A negative anti-HAV IgM result suggests no recent orcurrent HAV infection. Start: 04-25-2025 Hepatitis B core ant ibody measurement, IgM type Dr. Skylar Fong MD Work Phone: Comment on above: Performed at: [address] [id number] Director: Lazaro Caputo PhD, Phone: [phone] Start: 04-25-2025 Hepatitis C antibody measurement Dr. Skylar Fong MD Work Phone: Comment on above: Reactive: Presumptiv e evidence of antibodies to HCV. Follow CDC recommendations for supplemental testing.Non-Reactive: Antibodies to HCV were not detected; does not exclude the possibility of exposure to HCVReactive Results are presumptive evidence of antibodies to HCV. Follow CDC recommendations for supplemental testing.Order confirmation testing: HCV Quant by PCR testing - HCVPCR #[id number] Non Reactive: < 0.8 Equivocal: >/= 0.8 to < 1.0 Reactive: >/= 1.0The CDC requires that a reactive/equivocal HCV antibody result be sent out for confirmation. HCV Quant by PCR testing. Start: 04-25-2025 Radionuclide study of abdomen Dr. Skylar Fong MD Work Phone: Start: 04-15-[address] Khadar Fong MD Work Phone: Start: 04-15-2025 Computed tomography of abdomen and pelvis with contrast Dr. Skylar Fong MD Work Phone: Start: 04-11-2025 Radionuclide gastric emptying study Dr. Skylar Fong MD Work Phone: Start: 03-21-[address] Skylar Fong MD Work Phone: Start: 03-02-2025 Ct maxillofacial w/c ontrast material Shazia Booth PA-C Work Phone: Start: 03-02-2025 Basic metabolic pane l calcium total Shazia [employer] PA-C Work Phone: Start: 11-08-2024 X-ray of chest, PA a nd lateral views Dr. Skylar Fong MD Work Phone: Start: 05-13-2023 Nucleic acid assay Start: 03-09-2022 Plain chest X-ray MASTER COOK-C Rimma Tsai MASTER COOK Work Phone: Start: 02-05-2022 Urine culture [employer]-C Rimma Tsai MASTER COOK Work Phone: Start: 10-26-2021 Plain chest X-ray [employer] C[employer]-C Rimma Tsai MASTER COOK Work Phone: Start: 10-04-2019 Urine albumin quantitative Cody Lazaro DO Work Phone: Start: 10-04-2019 Comprehensive metabolic panel Cody Lazaro DO Work Phone: Start: 06-12-2019 Radex foot complete minimum 3 views Yessica Mejia Work Phone: Start: 03-31-2019 Microscopic examinat ion of blood, culture Comment on above: Order Comment: Speci dariel Source Comment:Blood Performed By: #### H A1C2, CMP3, LIPD2, TSH5 #### [facility] [employer] [facility] [address] [place] [address] Start: 03-30-2019 Microscopic examinat ion of blood, culture Comment on above: Order Comment: Reginald vieira Source Comment:Blood Performed By: #### H A1C2, CMP3, LIPD2, TSH5 #### [employer] [facility] [address] [place] [address] LAZARO HALL MD Plan of Treatment Date Care Activity Detail Author Start: 2074 RSV Immunization for Adults (1 - 1-dose 75+ series) RSV Immunization for Adults (1 - 1-dose 75+ series) [facility] Start: 2049 Zoster Vaccines (1 of 2) Zoster Vaccines (1 of 2) [facility] Start: 03-02-2026 Diabetes: Estimated Glomerular Filtration Rate for Kidney Health Diabetes: Estimated Glomerular Filtration Rate for Kidney Health [facility] Start: 08-09-2025 BP Controlled (<130/80) BP Controlled (<130/80) [facility] Start: 06-20-2025 Influenza vaccination Influenza Vaccine (Season Ended) [facility] Start: 05-23-2025 ambulatory Ambulatory Facility:[facility] Start: 05-23-2025 ambulatory Ambulatory Facility:[facility] Start: 05-21-2025 Diabetes: Estimated Glomerular Filtration Rate for Kidney Health Diabetes: Estimated Glomerular Filtration Rate for Kidney Health [facility] Start: 08-09-2024 End: 11-08-2024 IgE [Units/volume] in Serum or Plasma [facility] Comment on above: Expected: 08/09/2024, Expires: Start: 06-20-2024 COVID-19 Vaccine () COVID-19 Vaccine () [facility] Start: 06-20-2024 Covid-19 Vaccine () Covid-19 Vaccine () [facility] Start: 06-20-2024 Influenza vaccination Influ[facility] Start: 08-27-2023 Protein measurement [facility] Start: 05-19-2023 [facility] Start: 05-13-2023 Elastase, pancreatic (el-1), fecal; quantitative [facility] Start: 05-13-2023 Procedure [facility] Start: 04-07-2023 Procedure [facility] Start: 04-02-2023 Hemoglobin A1c measurement Diabetes: Hemoglobin A1C [facility] Start: 07-03-2022 Hemoglobin A1c measurement HbA1C [facility] Start: 07-03-2022 Hemoglobin A1c/Hemoglobin.total in Blood HBA1C [facility] Start: 06-20-2022 Influenza vaccination INFLUENZA (#1) [facility] Start: 09-05-2021 COVID-19 VACCINE (3 - Booster for Pfizer series) COVID-19 VACCINE (3 - Booster for Pfizer series) [facility] Start: 06-04-2021 DTaP/Tdap/Td vaccine (7 - Td) DTaP/Tdap/Td vaccine (7 - Td) [facility] [place] Start: 06-04-2021 DTaP/Tdap/Td Vaccines (7 - Td or Tdap) DTaP/Tdap/Td Vaccines (7 - Td or Tdap) [facility] Start: 06-04-2021 Urine microalbumin profile DTaP,Tdap,Td Vaccine (7 - Td or Tdap) [facility] Start: 10-04-2020 Diabetes: Urine Albumin-Creatinine Ratio for Kidney Health Diabetes: Urine Albumin-Creatinine Ratio for Kidney Health [facility] Start: 02-03-2020 Hepatitis B surface antibody level LDL Cholesterol [facility] Start: 02-03-2020 Lipid screen Lipid screen [place] Start: 02-03-2020 PAP TESTING PAP TESTING [facility] Start: 02-03-2020 Screening for malignant neoplasm of cervix [facility] Start: 01-26-2020 Chlamydia screen Chlamydia screen [place], [place] Start: 01-26-2020 HPV vaccine (1 - Female 2-dose series) HPV vaccine (1 - Female 2-dose series) [facility] Work Phone: Comment on above: Postponed from 2010 (Patient Refus ed) Start: 01-26-2020 HPV vaccine (1 - Female 3-dose series) HPV vaccine (1 - Female 3-dose series) [place] Comment on above: Postponed from 2014 (Patient Refus ed) Start: 01-26-2020 Varicella Vaccine (1 of 2 - 13+ 2-dose series) Varicella Vaccine (1 of 2 - 13+ 2-dose series) [place] Comment on above: Postponed from 02/03/2012 (Patient Refus ed) Start: 01-26-2020 Varicella Vaccine (1 of 2 - 2-dose childhood series) Varicella Vaccine (1 of 2 - 2-dose childhood series) [facility] Work Phone: Comment on above: Postponed from 02/03/2000 (Patient Refus ed) Start: 09-14-2019 Diabetic retinal exam Diabetic retinal exam [place], [place] Start: 06-20-2019 Influenza vaccination Flu vaccine (#1) [place] Start: 05-09-2019 Diabetic microalbuminuria test Diabetic microalbuminuria test [place] Start: 05-09-2019 Hepatitis B screening URINE ALBUMIN:CREATININE RATIO [facility] Start: 05-04-2019 [object Object] Diabetic foot exam [place] Start: 05-04-2019 A1C test (Diabetic or Prediabetic) A1C test (Diabetic or Prediabetic) [place] Start: 2018 HEPATITIS B (1 of 3 - Risk 3-dose series) HEPATITIS B (1 of 3 - Risk 3-dose series) [facility] Start: 2018 Urine microalbumin profile DTAP,TDAP,TD (1 - Tdap) [facility] Start: 2017 ANNUAL PCP TEAM CHRONIC DISEASE VISIT ANNUAL PCP TEAM CHRONIC DISEASE VISIT [facility] Start: 2017 Anxiety Screening Anxiety Screening [facility] Start: 2017 BP CONTROLLED (<130/80) BP CONTROLLED (<130/80) [facility] in Start: 2017 CHLAMYDIA SCREENING (18-24) CHLAMYDIA SCREENING (18-24) [facility] Start: 2017 Depression Screening Depression Screening [facility] Start: 2017 Diabetes: Urine Albumin-Creatinine Ratio for Kidney Health Diabetes: Urine Albumin-Creatinine Ratio for Kidney Health [facility] Start: 2017 GC (GONORRHEA) SCREENING (18-24) GC (GONORRHEA) SCREENING (18-24) [facility] Start: 2017 Hepatitis B surface antibody level LDL CHOLESTEROL [facility] Start: 2017 HEPATITIS C SCREENING HEPATITIS C SCREENING [facility] Start: 2017 Hepatitis C screening Hepatitis C Screening [facility] Start: 2017 HIV SCREENING HIV SCREENING [facility] Start: 2017 HIV screening HIV Screening [facility] Start: 2014 HPV Vaccine (1 - 3-dose series) HPV Vaccine (1 - 3-dose series) [facility] Start: 2014 HPV Vaccines (1 - 3-dose series) HPV Vaccines (1 - 3-dose series) [facility] Start: 2013 PEDS TO ADULT TRANSITION ANNUAL ASSESSMENT PEDS TO ADULT TRANSITION ANNUAL ASSESSMENT [facility] Start: 02-03-2012 Varicella vaccination Varicella Vaccines (1 of 2 - 13+ 2-dose series) [facility] Start: 2011 Adult depression screening assessment DEPRESSION SCREENING [facility] Start: 2011 Depression Monitoring Depression Monitoring [facility] Start: 2011 PEDS TO ADULT TRANSITION INITIAL DISCUSSION PEDS TO ADULT TRANSITION INITIAL DISCUSSION [facility] Start: 2010 HPV VACCINE (1 - 2-dose series) HPV VACCINE (1 - 2-dose series) [facility] Start: 2009 3 comp foot exam completed DIABETIC FOOT EXAM [facility] Start: 2009 Diabetic foot examination [facility] Start: 2009 Glaucoma screening [facility] Start: 2009 Hepatitis C antibody, confirmatory test DILATED RETINAL EXAM [facility] Start: 2009 Preventive dental service Diabetes: Dental Exam [facility] Start: 2005 PNEUMOCOCCAL (1 - PCV) PNEUMOCOCCAL (1 - PCV) [facility] Start: 04-13-2002 Pneumococcal vaccination Pneumococcal Vaccine (2 of 3 - PCV) [facility] Start: 04-13-2002 Pneumococcal Vaccine: Pediatrics (0 to 5 Years) and At-Risk Patients (6 to 49 Years) (2 of 3 - PCV) Pneumococcal Vaccine: Pediatrics (0 to 5 Years) and At-Risk Patients (6 to 49 Years) (2 of 3 - PCV) [facility] Start: 1999 Cyanocobalamin vitamin b-12 Vitamin B-12 [facility] Start: 1999 Diabetes: Celiac Disease Screening Diabetes: Celiac Disease Screening [facility] Start: 1999 HIV screening HIV Screening [facility] Start: 1999 Lipid panel Lipid Panel [facility] Start: 1999 Thyroid stimulating hormone measurement TSH Level [facility] Alternaria alternata IgE Ab [Units/volume] in Serum [facility] Iraqi Cockroach I gE Ab [Units/volume] in Serum [facility] Iraqi house dust mite IgE Ab [Units/volume] in Serum [facility] Aspergillus fumigatu s RAST [facility] Bahia grass IgE Ab [Units/volume] in Serum [facility] Basic metabolic 2008 panel with ionized calcium - Serum or Plasma [facility] Beef IgE Ab [Units/volume] in Serum [facility] Bermuda grass IgE Ab [Units/volume] in Serum [facility] Box elder RAST [facility] C reactive protein [Mass/volume] in Serum or Plasma [facility] Cat dander IgE Ab [Units/volume] in Serum [facility] Chocolate IgE Ab [Units/volume] in Serum [facility] Cladosporium herbaru m IgE Ab [Units/volume] in Serum [facility] Common Ragweed IgE A b [Units/volume] in Serum [facility] Delano IgE Ab [Units/volume] in Serum [facility] Cortisol [Mass/volum e] in Serum or Plasma [facility] COVID & INFLUENZA A/ B & RSV PCR, ROUTINE COVID & INFLUENZA A/B & RSV PCR, ROUTINE Microbiology Routine Viral URI with cough Viral conjunctivitis Ordered: 10/25/2024 [facility] Work Phone: Comment on above: Ordered: 10/25/2024 Cow milk IgE Ab [Units/volume] in Serum [facility] Dog epithelium IgE A b [Units/volume] in Serum [facility] Elastase.pancreatic [Presence] in Stool [facility] house dust mite IgE Ab [Units/volume] in Serum [facility] Fat [Mass/mass] in Stool [facility] Fat.neutral [Presenc e] in Stool [facility] Fish RAST [facility] Hazelnut Pollen IgE Ab [Units/volume] in Serum [facility] Jason grass IgE Ab [Units/volume] in Serum [facility] [place] blue grass IgE Ab [Units/volume] in Serum [facility] Liver stiffness by US.transient elastography [facility] Mountain Juniper IgE Ab [Units/volume] in Serum [facility] Mucor racemosus IgE Ab [Units/volume] in Serum [facility] Mugwort IgE Ab [Units/volume] in Serum [facility] Scarville RAST [facility] Nettle IgE Ab [Units/volume] in Serum [facility] End: 09-08-2025 NITRIC OXIDE, EXHALED NITRIC OXIDE, EXHALED PFT Routine 1 Occurrences starting 08/09/2024 until 09/08/2025 [facility] Work Phone: Comment on above: 1 Occurrences starting 08/09/2024 until 09/08/2025 Nuclear Ab [Presence ] in Serum [facility] Patient Education Acute Bronchit is ED Diabetic Hyperglycemia [facility] Work Phone: Patient referral [facility] Work Phone: Peanut IgE Ab [Units/volume] in Serum [facility] Penicillium notatum IgE Ab [Units/volume] in Serum [facility] Plantain (Niuean) RAST [facility] Pork IgE Ab [Units/volume] in Serum [facility] Procedure [facility] Protein measurement [facility] Radionuclide gastric emptying study [facility] Rough Pigweed IgE Ab [Units/volume] in Serum [facility] Sheep Toa [place] IgE Ab [Units/volume] in Serum [facility] Soybean IgE Ab [Units/volume] in Serum [facility] Stemphylium botryosu m IgE Ab [Units/volume] in Serum [facility] Sweet gum [facility] Tree pollen RAST [facility] Triacylglycerol lipa se measurement [facility] Wheat IgE Ab [Units/volume] in Serum [facility] White Elm IgE Ab [Units/volume] in Serum [facility] White Mcclain IgE Ab [Units/volume] in Serum [facility] Bowler IgE Ab [Units/volume] in Serum [facility] Whole Egg IgE Ab [Units/volume] in Serum [facility] Immunizations Immunization Date Immunization Notes Care Provider [facility] 04-05-2021 Covid (Pfizer) MASTER COOK-C Rimma Tsai MASTER COOK Work Phone: [facility] 03-15-2021 Covid (Pfizer) MASTER COOK-C Rimma Tsai MASTER COOK Work Phone: [facility] 11-20-2018 influenza, injectabl e, quadrivalent, preservative free [facility] 11-20-2018 Influenza, Quadv, 6 mo and older, IM, PF (Flulaval, Fluarix) Cody Lazaro DO Work Phone: [facility] Work Phone: 11-20-2018 influenza virus vacc ine, unspecified formulation Brenda Gillespie MD Work Phone: [facility] 07-16-2017 Influenza Vaccine, unspecified formulation [facility] [place] 07-16-2017 influenza virus vacc ine, unspecified formulation [facility] [place] 07-16-2017 Influenza, injectabl e, quadrivalent, preservative free Flory Mcgarry MD Work Phone: [facility] 08-20-2016 Influenza Vaccine, unspecified formulation [facility] [place] 08-20-2016 influenza virus vacc ine, unspecified formulation [facility] [place] 08-20-2016 influenza, injectabl e, quadrivalent, contains preservative [facility] 08-20-2016 Influenza, injectabl e, quadrivalent, preservative free Flory Mcgarry MD Work Phone: [facility] 05-10-2016 meningococcal polysaccharide (groups A, C, Y and W-135) diphtheria toxoid conjugate vaccine (MCV4P) [facility] 09-12-2015 Influenza Vaccine, unspecified formulation [facility] [place] 09-12-2015 influenza virus vacc ine, unspecified formulation [facility] [place] 09-12-2015 influenza, injectabl e, quadrivalent, contains preservative [facility] 09-12-2015 Influenza, injectabl e, quadrivalent, preservative free Flory Mcgarry MD Work Phone: [facility] 09-02-2014 Influenza Vaccine, unspecified formulation [facility] [place] 09-02-2014 influenza virus vacc ine, unspecified formulation [facility] [place] 09-02-2014 influenza, injectabl e, quadrivalent, contains preservative [facility] Work Phone: 09-02-2014 Influenza, injectabl e, quadrivalent, preservative free Flory Mcgarry MD Work Phone: [facility] 09-20-2013 Influenza Vaccine, unspecified formulation [facility] [place] 09-20-2013 influenza virus vacc ine, unspecified formulation Flory Mcgarry MD Work Phone: [facility] 09-20-2013 influenza, injectabl e, quadrivalent, contains preservative [facility] 09-18-2012 Influenza Vaccine, unspecified formulation [facility] [place] 09-18-2012 influenza virus vacc ine, unspecified formulation Flory Mcgarry MD Work Phone: [facility] 09-18-2012 influenza, injectabl e, quadrivalent, contains preservative [facility] 06-04-2011 tetanus toxoid, redu anjel diphtheria toxoid, and acellular pertussis vaccine, adsorbed [facility] 09-11-2009 novel influenza-H1N1 -09, preservative-free, injectable Flory Mcgarry MD Work Phone: [facility] 05-23-2004 diphtheria, tetanus toxoids and acellular pertussis vaccine [facility] 05-23-2004 diphtheria, tetanus toxoids and pertussis vaccine Flory Mcgarry MD Work Phone: [facility] 05-23-2004 measles, mumps and rubella virus vaccine [facility] 05-23-2004 poliovirus vaccine, inactivated [facility] 04-13-2001 pneumococcal polysaccharide vaccine, 23 valent [facility] 02-10-2001 diphtheria, tetanus toxoids and acellular pertussis vaccine [facility] 02-10-2001 diphtheria, tetanus toxoids and acellular pertussis vaccine, unspecified formulation Flory Mcgarry MD Work Phone: [facility] 02-10-2001 haemophilus influenz ae type b vaccine, PRP-OMP conjugate [facility] 02-10-2001 pneumococcal polysaccharide vaccine, 23 valent [facility] 02-10-2001 poliovirus vaccine, inactivated [facility] 06-12-2000 measles, mumps and rubella virus vaccine [facility], [place] 1999 diphtheria, tetanus toxoids and acellular pertussis vaccine [facility], [place] 1999 diphtheria, tetanus toxoids and acellular pertussis vaccine, unspecified formulation Flory Mcgarry MD Work Phone: [facility] 1999 haemophilus influenz ae type b vaccine, PRP-OMP conjugate [facility] 1999 hepatitis B vaccine, pediatric or pediatric/adolescent dosage Flory Mcgarry MD Work Phone: [facility] 1999 hepatitis B vaccine, unspecified formulation [facility] , [place] 1999 diphtheria, tetanus toxoids and acellular pertussis vaccine [facility], [place] 1999 diphtheria, tetanus toxoids and acellular pertussis vaccine, unspecified formulation Flory Mcgarry MD Work Phone: [facility] 1999 haemophilus influenz ae type b vaccine, HbOC conjugate Flory Mcgarry MD Work Phone: [facility] 1999 haemophilus influenz ae type b vaccine, PRP-OMP conjugate [facility], [place] 1999 poliovirus vaccine, inactivated [facility], [place] 1999 diphtheria, tetanus toxoids and acellular pertussis vaccine [facility] 1999 diphtheria, tetanus toxoids and acellular pertussis vaccine, unspecified formulation Flory Mcgarry MD Work Phone: [facility] 1999 haemophilus influenz ae type b vaccine, HbOC conjugate Flory Mcgarry MD Work Phone: [facility] 1999 haemophilus influenz ae type b vaccine, PRP-OMP conjugate [facility], 1999 poliovirus vaccine, inactivated [facility], 1999 hepatitis B vaccine, pediatric or pediatric/adolescent dosage Flory Mcgarry MD Work Phone: [facility] 1999 hepatitis B vaccine, unspecified formulation [facility] , 1999 hepatitis B vaccine, pediatric or pediatric/adolescent dosage Flory Mcgarry MD Work Phone: [facility] 1999 hepatitis B vaccine, unspecified formulation [facility] , [place] Payers Date Payer Category Payer [facility] Oleg [facility] - HMO [employer] BLUE CROSS [id number] 2024 Unknown [id number] 2024 Self-pay [id number] 2024 Unknown [id number] .[id number] 2024 Unknown [id number] 2022 Unknown [id number] 2018 Unknown BCBS [place] - [place] P PO xxxxxxxxxxxx 2018-Present [address] [place] [address] xxxxxxxxxxxx [id number] 1999 Unknown [id number] ..840.1.884540.3.579.2 .627 1999 Unknown [id number] .16.840.1.432300.3.579.2 .627 Private Health Insurance [id number] Unknown [id number] Unknown [id number] Unknown [id number] Unknown [id number] 2.16.840.1.144229.3.579.2 .462 Unknown [id number] 2.16.840.1.921230.3.579.2 .462 Unknown [id number] 2.16.840.1.702184.3.579.2 .462 Unknown [id number] 2.16.840.1.388981.3.579.2 .462 Unknown [id number] 2..840.1.285348.3.579.2 .462 Unknown [id number] 2..840.1.384335.3.579.2 .462 Unknown [id number] 2..840.1.354343.3.579.2 .462 Unknown [id number] 2.840.1.934185.3.579.2 .462 Unknown [id number] 2.840.1.987429.3.579.2 .462 Unknown [id number] 2.840.1.787364.3.579.2 .462 Unknown [id number] 2.840.1.433118.3.579.2 .462 Unknown [id number] 2.840.1.391513.3.579.2 .462 Unknown [id number] 2.840.1.781191.3.579.2 .462 Unknown [id number] 2.840.1.570736.3.579.2 .462 Unknown [id number] 2.840.1.105194.3.579.2 .462 Unknown [id number] 2..840.1.305417.3.579.2 .462 Unknown [id number] 2.840.1.800222.3.579.2 .462 Unknown [id number] 2.840.1.088424.3.579.2 .462 Unknown [id number] 2.16.840.1.739420.3.579.2 .462 Unknown [id number] 2.16.840.1.087672.3.579.2 .462 Unknown [id number] 2.16.840.1.831606.3.579.2 .462 Social History Date Type Detail Facility Start: 03-25-2019 End: 03-07-2025 Tobacco smoking status NHIS Never smoker [facility] Start: 03-25-2019 End: 03-02-2025 [facility] intake [facility] Start: 2000 Sex Assigned At [facility] Start: 03-25-2019 End: 03-02-2025 Alcohol intake Current non-drinker of alcohol (finding) [facility] Work Phone: Start: 02-05-2022 End: 03-09-2022 Tobacco smoking status TNIS Unknown if ever smoked [facility] Start: 11-04-2019 None [facility] Start: 11-04-2019 With Family [facility] Start: 12-08-2020 Non-smoker [facility] Start: 2000 Sex Assigned At Female W [facility] Start: 04-14-2022 End: 04-24-2022 Exposure to SARS-CoV-2 (event) Not sure [facility] Tobacco smoking status No Smokin g Status Entered [facility] Start: 08-09-2024 Tobacco use and exposure Smokeless tobacco non-user [facility] Start: 08-09-2024 End: 10-25-2024 Alcoholic beverage intake Ex-drinker (finding) [facility] Start: 08-09-2024 End: 03-02-2025 History of Social function [facility] National Score (1-10 0), lower number is lower risk 86 [facility] How often to you hav e a drink containing alcohol? Never [facility] [employer] Start: 05-20-2022 End: 12-31-2024 Sex Female (finding) [facility] [employer] Medical Equipment Procedure Code Equipment Code Equipment Origin al Text Equipment Identifier Dates USE DIRECTED. [id number] Start: 11-30-2016 EASY TOUCH INSUL IN SYRINGE 31G X 03/04 1 ML [place] [facility] [id number] Start: 10-03-2015 1 each by In Vit ro route 6 times daily As needed. [id number] Start: 02-09-2018 1 each by Does n ot apply route 6 times daily [id number] Goals Date Patient Goal Desired Activity /State Comment on above: Diabetes Education/ Self- Management Plan: Patient Stated Goal: To have better blood sugar control so that she does not have to go to the ER. Goals Discussion/Provider Goal: A1C less than 7, Total Cholesterol less than 200, HDL greater than 40, blood pressure less than 130/80, weight within appropriate range for height, BMI within approprate range, FBS within 70-130 range. Nutrition Discussion: Carb counting discussion, reading food labels education, portion control explanation, and smart snacking discussion addressed. Eye Care Discussion: Encouraged yearly exam. Foot Care Discussion: Encouraged yearly podiatric focused exam. Exercise Discussion: Discussed with patient how physical activity helps manage blood sugar levels better. Encouraged 20-30 minutes of physical activity most days of the week. 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 Encouraged and recommended by provider. Confidence to Achieve Goal: 03/29 Date Goat Set: 12/12/16 Patient was given education materials on healthy diet and diabetes management- see AVS. Patient received counseling about current lifestyle goal. Advised approximately 150 minutes of cardio, i.e treadmill, exercise in a week. Advised strive for 5 a total 5 servings of fruits and vegetables in a day. Advised a diet lower in carbohydrates and simple sugars. They need to watch consumption of bread, rice, pasta, potatoes, corn, soda, sweetened tea, lemonade, and all other sugar drinks. Patient given after visit summary which includes educational information on Diabetes and Nutrition. Discussed use, benefit, and side effects of prescribed medications and barriers to medication compliance addressed, if applicable. All patient questions answered and patient voiced understanding. Patient was given a copy of this, and was advised to call if any questions. Functional Status Date Assessment Result Facility 03-02-2025 Total score [AUDIT-C] 0 03/02/20 25 6:07 PM Geneva Phillips RN [facility] 03-29-2024 Functional Status Resting Lo carrero [facility] 03-29-2024 Functional Status Maintained Lo Mcguire [facility] 03-11-2022 Functional status Ambulates;Up ad jan [facility] Work Phone: 03-10-2022 Functional status Ambulates [facility] Work Phone: 02-08-2022 Functional status Up ad jan [facility] Work Phone: 02-07-2022 Functional status Tolerates Activity Well [facility] Work Phone: [facility] Mental Status Date Assessment Result Facility 03-29-2024 Mental Status Oriented x 4 [facility] 03-11-2022 Cognitive function Voice/Name;To uch/Shaking;Li ght Pain;Deep Pain [facility] Work Phone: 03-10-2022 Cognitive function Appropriate;Cooperativ e [facility] Work Phone: 02-07-2022 Cognitive function Voice/Name [facility] Work Phone: 10-26-2021 Cognitive function Voice/Name [facility] Work Phone: Clinical Notes 04-25-2022 to 04-25-2025 Note Date & Type Note Facility 04-25-2025 Nuclear medicine Diagnostic study note [facility] Imaging Services [address] [place] [address] Hepatobilliary Imaging MR#: [id number] Acct: [id number] Name: SANTIAGO JACOBSEN Rep #: [id number] : 2000 F 25 From: Manuelito Mercado MD PCP: Dr. Skylar Fong MD Status: REG CLI Study:Hepatobilliary Imaging Date of Exam: 04/25/25 Exam# [id number] Ordering Dr: Juan M Boykin MASTER COOK-C PROCEDURE: HEPATOBILIARY IMAGING 04/25/2025 REASON FOR EXAM: GB SLUDGE SEEN BY US TECHNIQUE: Intravenous Choletec with planar imaging of the abdomen. RADIOPHARMACEUTICAL: 5.7 mCi of technetium 99 M mebrofenin. COMPARISON: None. FINDINGS: There is normal homogeneous uptake by the hepatic parenchyma. The extrahepatic biliary tree is seen by 10 minutes in the small bowel by 15 minutes following radiopharmaceutical injection. There is non visualization of the gallbladder up to 120 minutes following radiopharmaceutical injection. At that point the exam was terminated. NM/Hepatobilliary Imaging IMPRESSION: There is nonvisualization of the gallbladder 120 minutes following radiopharmaceutical injection suggestive of acute cholecystitis. Reading Location: [id number] CC: RIO Boykin; Dr. Skylar Fong MD ~ [employer] Operator: Signed [facility] Work Phone: 04-16-2025 Radiology Diagnostic study note [facility] Imaging Services [address] [place] [address] [id number] Abdomen/Pelvis WITH Contrast MR#: [id number] Acct: [id number] Name: SANTIAGO JACOBSEN Rep #: [id number] : 2000 F 25 From: Christine Hinson MD PCP: Dr. Skylar Fong MD Status: REG CLI Study:Abdomen/Pelvis WITH Contrast Date of Ex am: 04/15/25 Exam# [id number] Ordering Dr: Juan M Boykin PROCEDURE: ABDOMEN/PELVIS WITH CONTRAST 04/15/2025 REASON FOR EXAM: HEPATOMEGALY ON US, 24.7 CM TECHNIQUE: ABDOMEN/PELVIS WITH CONTRAST Coronal and Sagittal reconstruction series were provided. CONTRAST: Isovue 300 VOLUME: 98 mL One or more dose reduction techniques were used (e.g., Automated exposure control, adjustment of the mA and/or kV according to patient size, use of iterative reconstruction technique. RADIATION DOSE SUMMARY: CTDlvol: 28 mGy DLP: 1136 mGycm COMPARISON: Ultrasound 03/21/2025 FINDINGS: Series 2, image 1, partially imaged left lower lobe noncalcified nodule measuring at least [address] recommended. Heart size is within normal limits. Hepatomegaly and diffuse hepatic steatosis. Normal gallbladder, pancreas, spleen, adrenal glands and kidneys. No hydronephrosis or ureteral stone. Normal bladder. Normal uterus and ovaries. No retroperitoneal or pelvic adenopathy. No free air. Nondistended bowel. Normal appendix. No acute large bowel findings. No acute abdominal wall findings. CT/Abdomen/Pelvis WITH Contrast IMPRESSION: Medical liver disease. Correlate for possible hepatitis. Left lower lobe lung nodule, recommend chest CT Reading Location: [place] [address] CC: RIO Boykin; Dr. Skylar Fong MD ~ [employer] Operator: Signed [facility] 04-11-2025 Nuclear medicine Diagnostic study note [facility] Imaging Services [address] [place] [id number] Gastric Emptying Study - 4 HR MR#: [id number] Acct: [id number] Name: SANTIAGO JACOBSEN Rep #: [id number] : 2000 F 25 From: Minh Chauhan MD PCP: Dr. Skylar Fong MD Status: REG CLI Study:Gastric Emptying Study - 4 HR Date of E xam: 04/11/25 Exam# [id number] Ordering Dr: Juan M Boykin NP-Aniyah PROCEDURE: GASTRIC EMPTYING STUDY - 4 HR 04/11/2025 REASON FOR EXAM: N/V/ABD PAIN TECHNIQUE: The patient ingested a standard meal of oatmeal and radiopharmaceutical and water. Newly-There was no vomiting postprandially. Anterior and posterior planar images of the upper abdomen were obtained for 1 minute immediately following the meal at 1h, 2h and 4h if more than 10% of the activity persisted within the stomach. Regions of interest were drawn, and a geometric mean was used to calculate a ttlv-xqheclqd-nocmg. RADIOPHARMACEUTICAL: Sulfur colloid DOSE 1.1mCi FINDINGS: Percent activity remaining in stomach: 1 hour 63 % (normal 37-90%) 2 hours: 47 % (normal 30-60%) 4 hours: 16 % (normal 0-10%) NM/Gastric Emptying Study - 4 HR IMPRESSION: Delayed gastric emptying. Reading Location: [id number] CC: RIO Boykin; Dr. Skylar Fong MD ~ [employer] Operator: Signed [facility] 03-21-2025 Radiology Diagnostic study note [facility] Imaging Services [address] [place] [address] Abdomen Limited MR#: [id number] Acct: [id number] Name: SANTIAGO JACOSBEN Rep #: [id number] : 2000 F 25 From: Marina Dc MD PCP: Dr. Skylar Fong MD Status: REG CLI Study:Abdomen Limited Date of Exam: 12/14 Exam# [id number] Ordering Dr: Juan M Boykin PROCEDURE: ABDOMEN LIMITED 03/21/2025 REASON FOR EXAM: N/V/ABD PAIN TECHNIQUE: Complete abdominal ultrasound warner-scale images with color doppler. PATIENT PREPARATION: Per protocol COMPARISON: None FINDINGS: Liver: Increased in size measuring up to 24.7 cm. Increased and heterogeneous echotexture. Gallbladder: Sludge noted. No pericholecystic fluid. Negative Marvin's sign. Gallbladder wall is unremarkable. Common bile duct: Measures 5.6 mm. No intrahepatic biliary dilatation.. Pancreas: Increased echogenicity Kidneys: The right kidney measures 12.4 cm. No hydronephrosis. US/Abdomen Limited IMPRESSION: Hepatomegaly and hepatic steatosis. No acute cholecystitis. Nonspecific increased echogenicity of the pancreas. Reading Location: [id number] CC: RIO Boykin; Dr. Skylar oFng MD ~ [employer] Operator: Signed [facility] 03-07-2025 Evaluation note Diagnosis Onset Date Resolution Abdominal pain acute March 07, 2025 8:04am Diarrhea acute March 07, 2025 8:04am Gastroparesis acute March 07, 2 025 8:04am Type 1 diabetes mellitus chronic March 07, 2025 8:04am [facility] Work Phone: 1(759) 924-814305-19-2025 Evaluation note* Diagnosis Onset Date Resolution Status Admit Date Abdominal pain acute March 07, 2025 8:04am Diarrhea acute March 07, 2025 8:04am Gastroparesis acute March 07, 025 8:04am Type 1 diabetes mellitus chronic March 07, 2025 8:04am Gallbladder sludge acute April 202024 2:22pm Hepatomegaly acute May 09, 2 025 2:22pm Exocrine pancreatic insufficiency chronic May 09, 2025 2:22pm Type 1 diabetes, uncontrolle d, with gastroparesis chronic May 09 2:22pm [facility] Work Phone: 1(913) 794-907105-14-2025 Emergency department Note* Fadumo Pascual RN - 03/02/2025 10:51 PM EDT Pt still refusing fluids despite HR, provider notified and pt being Dc'd. [id number] Emergency department Note* Fadumo Pascual RN - 03/02/2025 10:51 PM EDT Pt still refusing fluids despite HR, provider notified and pt being Dc'd. * Shazia Booth PA-C - 03/02/2025 4:41 PM EDT Images from the original note were not included. EMERGENCY DEPARTMENT ENCOUNTER Pt Name: Santiago Jacobsen Birthdate 2000 Date [...] up on Friday with her dentist. No d ifficulty swallowing, breathing, or managing oral secretions. No [...] 1805] Temp Heart Rate Resp BP 36.8 C (98.3 F) (!) 115 16 (!) 154/96 SpO2 Temp [...] one cracked tooth. Soft tissue swelling of thegum, but no obvious abscess amenable to drainage at the bedside. Given this midline. No drooling ortrismus. Easily managing oral secretions. Eyes: Conjunctiva/sclera: Conjunctivae [...] indication of chorionic carcinoma, hydatiform mole, or multiplepregnancy. Decreasing hCG concentrations indicate threatened or missed , recent terminationof , ectopic , gestosis or intrauterine . Danika- and postmenopausal females may have detectable hCG concentrations (< or = to 14 mIU/mL) due to pituitary production of hCG. Serum follicle-stimulating hormone measurement may aid in ruling-out in this population. Cutoffs of greater than 20 to 45 mIU/mL have been suggested and are method dependent. False-elevations(called phantom human chorionic gonadotropin: hCG) may occur with patients who have human antianimal or heterophilic antibodies. Some specimens may not dilute linearly due to abnormal forms of hCG. Elevated hCG concentrations not associated with are found in patients with other diseases such as tumors of the germ cells, ovaries, bladder, pancreas, stomach, lungs, and liver. This test isnot intended to detect or monitor tumors or gestational trophoblastic disease. All other labs were within normal range or not returned as of this dictation. EMERGENCY DEPARTMENT COURSE and DIFFERENTIAL DIAGNOSIS/MDM: Vitals: Vitals: 03/02/25 1805 03/02/257 03/02/25 2235 BP: (!) 154/96 (!) 150/103 (!) 154/100 BP Location: Left arm Patient Position: Sitting Pulse: (!) 115 (!) 118 (!) 117 Resp: 16 16 16 Temp: 36.8 C (98.3 F) 37.2 C (99 F) 36.9 C (98.4 F) TempSrc: Temporal Temporal Temporal SpO2: 100% 100% [...] tablet 1 tablet (1 tablet Oral Given 03/02/252240) I independently evaluated the patient with supervising [...] first molar. No other definite cortical perforation. Noadjacent abscess seen. Submandibular adenopathy on the LEFT, [...] be able to fully assess for DKA/HHS. Againdiscussed treatment with fluids, but patient declined. As [...] decision making preformed. PATIENT REFERRED TO: Skylar Fong [address] [facility] [phone] In 2 days [facility] EMERGENCY DEPT [address] [facility] [phone] As needed, If symptoms worsen DISCHARGE MEDICATIONS: Discharge Medication List as of 03/02/2025 10:42 PM START taking these medications Details amoxicillin-clavulanate (Augmentin) 875-125 MG tablet Take 1 tablet by mouth every 12 hours for 10 days., Starting Fri03/02/2025, Until 03/12/2025, Normal diphenhydramine/alum & mag hydroxide/lidocaine (Magic Mouthwash) oral solution Swish and spit 5mL every 6 hours as needed for irritation or dental pain., Starting Fri03/02/2025, Normal (Comment: Please note this report has been produced using speech recognition software and may contain errors related to that system including errors in grammar, punctuation, and spelling, as well as words and phrases that may be inappropriate. If there are any questions or concerns please feel freeto contact the dictating provider for clarification.) Shazia [...] use: No Shazia Booth PA-C 03/03/25 0041 * Geneva Beck RN - 03/02/2025 4:41 PM EDT Dental pain and swelling documented in this [facility]05-14-2025 Hospital Discharge instructions* Discharge Instructions* Shazia Booth PA-C - 03/02/2025 10:42 PM EDT Keep your previously scheduled follow-up appointment with your dentist for Friday. Take your antibiotics as prescribed. As discussed, your sugar is high today. You need to make sure you are takingyour medications as prescribed and follow-up closely with your primary care provider for this. Return to the emergency department should anything change or worsen. documented in this [facility]05-14-2025 Emergency department Triage note* Geneva Beck RN - 03/02/2025 4:41 PM EDT Dental pain and swelling [facility] [id number] Physician Emergency department Note* Shazia Booth PA-C - 03/02/2025 4:41 PM EDT Images from the original note were not included. EMERGENCY DEPARTMENT ENCOUNTER Pt Name: Santiago Jacobsen Birthdate 2000 Date [...] up on Friday with her dentist. No d ifficulty swallowing, breathing, or managing oral secretions. No [...] 1805] Temp Heart Rate Resp BP 36.8 C (98.3 F) (!) 115 16 (!) 154/96 SpO2 Temp [...] one cracked tooth. Soft tissue swelling of thegum, but no obvious abscess amenable to drainage at the bedside. Given this midline. No drooling ortrismus. Easily managing oral secretions. Eyes: Conjunctiva/sclera: Conjunctivae [...] indication of chorionic carcinoma, hydatiform mole, or multiplepregnancy. Decreasing hCG concentrations indicate threatened or missed , recent terminationof , ectopic , gestosis or intrauterine . Danika- and postmenopausal females may have detectable hCG concentrations (< or = to 14 mIU/mL) due to pituitary production of hCG. Serum follicle-stimulating hormone measurement may aid in ruling-out in this population. Cutoffs of greater than 20 to 45 mIU/mL have been suggested and are method dependent. False-elevations(called phantom human chorionic gonadotropin: hCG) may occur with patients who have human antianimal or heterophilic antibodies. Some specimens may not dilute linearly due to abnormal forms of hCG. Elevated hCG concentrations not associated with are found in patients with other diseases such as tumors of the germ cells, ovaries, bladder, pancreas, stomach, lungs, and liver. This test isnot intended to detect or monitor tumors or [...] 117 Resp: 16 16 16 Temp: 36.8 C (98.3 F) 37.2 C (99 F) 36.9 C (98.4 F) TempSrc: Temporal Temporal Temporal SpO2: 100% 100% [...] tablet 1 tablet (1 tablet Oral Given 03/02/252240) I independently evaluated the patient with supervising [...] first molar. No other definite cortical perforation. Noadjacent abscess seen. Submandibular adenopathy on the LEFT, [...] be able to fully assess for DKA/HHS. Againdiscussed treatment with fluids, but patient declined. As [...] decision making preformed. PATIENT REFERRED TO: Skylar Fong [address] [facility] [phone] In 2 days [facility] EMERGENCY DEPT [address] [place] [phone] As needed, If symptoms worsen DISCHARGE MEDICATIONS: Discharge Medication List as of 03/02/2025 10:42 PM START taking these medications Details amoxicillin-clavulanate (Augmentin) 875-125 MG tablet Take 1 tablet by mouth every 12 hours for 10 days., Starting 03/02/2025, Until 03/12/2025, Normal diphenhydramine/alum & mag hydroxide/lidocaine (Magic Mouthwash) oral solution Swish and spit 5mL every 6 hours as needed for irritation or dental pain., Starting Fri03/02/2025, Normal (Comment: Please note this report has been produced using speech recognition software and may contain errors related to that system including errors in grammar, punctuation, and spelling, as well as words and phrases that may be inappropriate. If there are any questions or concerns please feel freeto contact the dictating provider for clarification.) Shazia [...] use: No Shazia Booth PA-C 03/03/25 0041 [facility] [id number] Hospital Discharge instructions* Discharge Instructions* Flory Mcgarry MD - 10/25/2024 1:39 PM EST Of the medications prescribed from the urgent care take all of them with the exception of the Sudafed and get the diabetic Sudafed that you were referring to tfwg-[id number] for congestion symptoms.Contact your eye doctor for follow-up. Return to the emergency department if you have any further worsening of vision, fevers, red and is swelling to the face or eye. * Attachments The following attachments cannot be sent through Care Everywhere. * Preseptal Cellulitis ED (Niuean) * How to Use Eye Drops and Eye Ointment ED (Niuean) documented in this [facility]01-06-2025 Emergency department Note* Flory Mcgarry MD - 10/25/2024 10:30 AM EST EMERGENCY DEPARTMENT ENCOUNTER Pt Name: Santiago Jacobsen Birthdate 2000 Date [...] had some congestion and a few days ofblurry vision and sensation of foreign body to [...] a history of asthma. Denies any pain whenshe takes a deep breath. Nursing Notes were reviewed. Limitations to history: None Outside historians: None REVIEW OF SYSTEMS Review of Systems Pertinent positives and negatives as per HPI. 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 Psych: Awake alert and oriented 3. Pleasant and cooperative. Skin: Warm and dry. [...] 112 Resp: 18 18 18 Temp: 36.9 C (98.5 F) SpO2: 100% 100% 100% Weight: 70.3 kg [...] erythromycin, oral prednisone, and topical ophthalmic antihistamines. Patientreferred to her eye doctor for follow-up. Patient [...] REFERRED TO: Skylar Fong [address] [facility] [address] [facility] [phone] Schedule an appointment as soon as possible for a visit in 1 week [facility] [address] [facility] [phone] If symptoms worsen DISCHARGE MEDICATIONS: New Prescriptions No medications on file (Comment: Please note this report has been produced using speech recognition software and may contain errors related to that system including errors in grammar, punctuation, and spelling, as well as words and phrases that may be inappropriate. If there are any questions or concerns please feel freeto contact the dictating provider for clarification.) Flory Mcgarry MD (electronically signed) Emergency Medicine Provider Flory Mcgarry MD 10/25/24 1623 * Alyssa Lilly RN - 10/25/2024 10:30 AM EST Patient states she was at urgent care but they did nothing for her. She states she went for her right eye swelling and redness that started on Friday. She noticed the redness when she got home from work. She states the swelling then started Friday evening. She states when she was at urgent care they did tell her she had bronchitis but no treatment for her eye. documented in this [facility]01-06-2025 Emergency department Triage note* Alyssa Lilly RN - 10/25/2024 10:30 AM EST Patient states she was at urgent care but they did nothing for her. She states she went for her right eye swelling and redness that started on Friday. She noticed the redness when she got home from work. She states the swelling then started Friday evening. She states when she was at urgent care they did tell her she had bronchitis but no treatment for her eye. [id number] Physician Emergency department Note* Flory Mcgarry MD - 10/25/2024 10:30 AM EST EMERGENCY DEPARTMENT ENCOUNTER Pt Name: Santiago Jacobsen Birthdate 2000 Date [...] had some congestion and a few days ofblurry vision and sensation of foreign body to [...] a history of asthma. Denies any pain whenshe takes a deep breath. Nursing Notes were reviewed. Limitations to history: None Outside historians: None REVIEW OF SYSTEMS Review of Systems Pertinent positives and negatives as per HPI. PAST MEDICAL HISTORY Past Medical History: Diagnosis Date Diabetes with ketoacidosis ([facility]) ([facility]) Diabetic ketoacidosis without coma associated with type 1 diabetes mellitus ([facility]) ([facility]) 03/25/2019 DKA, type 1, not at goal ([facility]) ([facility]) 03/15/2019 DM (diabetes mellitus) type 1, uncontrolled, with ketoacidosis ([facility]) ([facility]) 03/15/2019 Hypertension Lactic acidemia 03/25/2019 Leukocytosis 03/25/2019 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 Psych: Awake alert and oriented 3. Pleasant and cooperative. Skin: Warm and dry. [...] 112 Resp: 18 18 18 Temp: 36.9 C (98.5 F) SpO2: 100% 100% 100% Weight: 70.3 kg [...] erythromycin, oral prednisone, and topical ophthalmic antihistamines. Patientreferred to her eye doctor for follow-up. Patient [...] REFERRED TO: Skylar Fong [address] [facility] [phone] Schedule an appointment as soon as possible for a visit in 1 week [facility] [address] [facility] [phone] If symptoms worsen DISCHARGE MEDICATIONS: New Prescriptions No medications on file (Comment: Please note this report has been produced using speech recognition software and may contain errors related to that system including errors in grammar, punctuation, and spelling, as well as words and phrases that may be inappropriate. If there are any questions or concerns please feel freeto contact the dictating provider for clarification.) Flory Mcgarry MD (electronically signed) Emergency Medicine Provider Flory Mcgarry MD 10/25/[address] [facility]01-06-2025 NoteHNO ID: [id number] Author: YESY DURAND APRN.ANESTHESIOLOGY TECH Service: ? Author Type: Nurse Practitioner Type: Progress Notes Filed: 10/25/2024 10:08 Note Text: This note was created using NoteWriter. Subjective Santiago Jacobsen is a 24 year old female. HPI by patient: Santiago is a 24 year old presenting to the office with the complaint of R eye pain. Runny nose, SOB (has asthma, covid induced) ear pain, cough, body aches Started approximately Jua Ncarlos her eye started hurting, everything else started after that. Denies any other concerns Covid Immunization Dates Overdue - Covid-19 Vaccine () Overdue since 06/20/2024 04/05/2021 Imm Admin: COVID-19 original vaccine, age 12+ yr, monovalent (StunnNTECH - PURPLE TOP) 03/15/2021 Imm Admin: COVID-19 original vaccine, age 12+ yr, monovalent (Decurate-Re-vinyl - PURPLE TOP) Sick contacts: yes her [...] ROUTINE - PREDNISONE 10 MG TABLET - [id number]-[id number] 2 MG-30 MG-10 MG/5 ML ORAL SYRUP [...] - OLOPATADINE 0.2 % EYE DROPS Yesy Durand APRN.ANESTHESIOLOGY TECH Medical Decision Making: Problems: Moderate: New problem with uncertain prognosis Data: Unique test(s) ordered: 3+ Risk: Moderate: Drug management [facility]: [facility] of Present illness Narrative* Yesy Durand APRN.ANESTHESIOLOGY TECH - 10/25/2024 9:48 AM EST This note was created using NoteWriter. Subjective Santiago Jacobsen is a 24 year old female. HPI by patient: Santiago is a 24 year old presenting to the office with the complaint of R eye pain. Runny nose, SOB(has asthma, covid induced) ear pain, cough, body aches Started approximately Friday her eye started hurting, everything else started after that. Denies any other concerns Covid Immunization Dates Overdue - Covid-19 Vaccine (2023- season) Overdue since 06/20/2024 04/05/2021 Imm Admin: [...] History Reviewed Including Cardiac Diseases, Psychiatric Diseases, & Substance Abuse Problem: Diabetes Relation: Father Age [...] for adenopathy. Objective Pulse 114 Temp 37.3 C (99.2 F) (Tympanic) Wt 75.6 kg (166 lb 10.7 oz) LMP 02/03/2023 (Approximate) SpO2 100% BMI 31.49 kg/m Physical Exam Vitals and nursing note reviewed. [...] care with fluids and rest - COVID & INFLUENZA A/B & RSV PCR, ROUTINE - PREDNISONE 10 MG TABLET - [id number] 2 MG-30 MG-10 MG/5 ML ORAL SYRUP 2. Viral conjunctivitis - ICD9: 077.99, ICD10: B30.9 - see medication orders - course and contagiousness issues discussed, including hand washing. - Instructed to call if high fever, development of periorbital redness or swelling, eye pain, visual changes, concerns or if symptoms persist. - COVID & INFLUENZA A/B & RSV PCR, ROUTINE - ERYTHROMYCIN 5 MG/GRAM (0.5 %) EYE OINTMENT - OLOPATADINE 0.2 % EYE DROPS Yesy Durand APRN.CNP Medical Decision Making: Problems: Moderate: New problem with uncertain prognosis Data: Unique test(s) ordered: 3+ Risk: Moderate: Drug management Medical Decision Making Level: 4 - Moderate [facility] Instructions* Patient Instructions* Yesy Durand APRN.CNP - 10/25/2024 9:48 AM EST UPPER RESPIRATORY INFECTIONS Most cases are caused [...] while you are sick so you don't lemon picker a different virus, or infect others. 8. Avoid exposure to cigarettes or fumes. 9. Avoid irritants such as potpourri, dust, perfumes, scented candles and scented sprays 10. Air conditioning is an effective allergen and irritant avoidance strategy in the spring, summerand fall. 11. Honey is an effective cough [...] be given to infants under one year ofage. HUMIDIFIER: If the air is dry, use [...] symptoms You have any questions or concerns documented in this encounterChildren[facility]-24-2024 NoteHNO ID: [id number] Author: GLADYS MCKAY RPFT Service: ? Author Type: Respiratory Therapist Type: Procedures Filed: 08/12/2024 07:39 Note Text: RESPIRATORY THERAPY ORAL EXHALED NITRIC OXIDE SERVICE DATE: 08/12/2024 SERVICE TIME: 7:39 AM Oral Exhaled Nitric Oxide measurement: 10.0 (ppb) Normal: Adult <25 ppb, pediatric (<12 years) <20 ppb High Normal / Increased: Adult 25-50 ppb, pediatric (<12 years) 20-35 ppb Moderately raised exhaled Nitric Oxide may indicate underlying inflammation, but note that: Cold and influenza can raise exhaled Nitric Oxide and some patients have higher baseline exhaled Nitric Oxide levels than others. High: Adult >50 ppb, pediatric (<12 years) >35 ppb Indicative of ongoing eosinophilic inflammation. Symptomatic patient likely to respond to steroids. Possible causes (if already on steroids): Poor compliance, recent allergen exposure, steroid dose inadequate, and steroid resistance. Note that not all patients with high exhaled nitric oxide levels display symptoms. Oral Exhaled Nitric Oxide measurement (Previous Encounters) Test Date Oral Exhaled Nitric Oxide (ppb) 08/12/2024 10.0 NAME: KAILEE Conti PATIENT NAME: Santiago Jacobsen DATE: August 12, 2024 TIME: 7:39 [facility]10-24-2024 Procedure note* Gladys Mckay RPFT - 08/12/2024 7:38 AM EDTProcedure(s): NITRIC OXIDE, EXHALED Pre-Procedure Diagnose(s): Shortness of breath Post-Procedure Diagnose(s): Shortness of breath RESPIRATORY THERAPY ORAL EXHALED NITRIC OXIDE SERVICE DATE: 08/12/2024 SERVICE TIME: 7:39 AM Oral Exhaled Nitric Oxide measurement: 10.0 (ppb) Normal: Adult <25 ppb, pediatric (<12 years) <20 ppb High Normal / Increased: Adult 25-50 ppb, pediatric (<12 years) 20-35 ppb Moderately raised exhaled Nitric Oxide may indicate underlying inflammation, but note that: Cold and influenza can raise exhaled Nitric Oxide and some patients have higher baseline exhaled Nitric Oxide levels than others. High: Adult >50 ppb, pediatric (<12 years) >35 ppb Indicative of ongoing eosinophilic inflammation. Symptomatic patient likely to respond to steroids. Possible causes (if already on steroids): Poor compliance, recent allergen exposure, steroid dose inadequate, and steroid resistance. Note that not all patients with high exhaled nitric oxide levels display symptoms. Oral Exhaled Nitric Oxide measurement (Previous Encounters) Test Date Oral Exhaled Nitric Oxide (ppb) 08/12/2024 10.0 NAME: KAILEE Conti PATIENT NAME: Santiago Jacobsen DATE: August 12, 2024 TIME: 7:39 AM [facility]10-24-2024 Procedure note* Gladys Mckay RPFT - 08/12/2024 7:38 AM EDTProcedure(s): NITRIC OXIDE, EXHALED Pre-Procedure Diagnose(s): Shortness of breath Post-Procedure Diagnose(s): Shortness of breath RESPIRATORY THERAPY ORAL EXHALED NITRIC OXIDE SERVICE DATE: 08/12/2024 SERVICE TIME: 7:39 AM Oral Exhaled Nitric Oxide measurement: 10.0 (ppb) Normal: Adult <25 ppb, pediatric (<12 years) <20 ppb High Normal / Increased: Adult 25-50 ppb, pediatric (<12 years) 20-35 ppb Moderately raised exhaled Nitric Oxide may indicate underlying inflammation, but note that: Cold and influenza can raise exhaled Nitric Oxide and some patients have higher baseline exhaled Nitric Oxide levels than others. High: Adult >50 ppb, pediatric (<12 years) >35 ppb Indicative of ongoing eosinophilic inflammation. Symptomatic patient likely to respond to steroids. Possible causes (if already on steroids): Poor compliance, recent allergen exposure, steroid dose inadequate, and steroid resistance. Note that not all patients with high exhaled nitric oxide levels display symptoms. Oral Exhaled Nitric Oxide measurement (Previous Encounters) Test Date Oral Exhaled Nitric Oxide (ppb) 08/12/2024 10.0 NAME: KAILEE Conti PATIENT NAME: Santiago Jacobsen DATE: August 12, 2024 TIME: 7:39 AM documented in this encounterChildren[facility]10-24-2024 NoteHNO ID: [id number] Author: GLADYS MCKAY RPFT Service: ? Author Type: Respiratory Therapist Type: Progress Notes Filed: 08/12/2024 07:39 Note Text: PULM FUNCTION: Provider: Brenda Gillespie MD Assisting Tech: Gladys Mckay RPFT Exhaled Nitric Oxide[facility] History of Present illness Narrative* Gladys Mckay RPFT - 08/12/2024 7:36 AM EDT PULM FUNCTION: Provider: Brenda Gillespie MD Assisting Tech: Gladys Mckay RPFT Exhaled Nitric Oxide: 1 documented in this encounterChildren[facility]10-21-2024 Nurse Note* Humera Romero LPN - 08/09/2024 3:37 PM EDT FeNO = 10ppb Humera Romero LPN [facility]10-21-2024 Nurse Note* Humera Romero LPN - 08/09/2024 3:37 PM EDT FeNO = 10ppb Humera Romero LPN documented in this encounterChildren'[facility]10-21-2024 History of Present illness Narrative* Brenda Gillespie MD - 08/09/2024 3:15 PM EDT Images from the original note were not included. . Respiratory Hull Note Patient name: Santiago Jacobsen PCP: Skylar Fong MD Referring Physician: Same Consultation requested by Dr. Fong for an opinion regarding possible asthma. My final recommendations will be communicated back to the requesting physician by way of shared Medical record or letter to requesting physician via US mail. CC: Cough, shortness of breath HPI: Santiago Jacobsen 24 year old female non-smoker with PMH significant for HTN, DM 1 with history of DKA, gastroparesis, pancreatic insufficiency being referred for breathing issues. She denies a past history of asthma or allergies. She states she was well until she had COVID several years ago. Since that time she has had a persistent cough. She tends to cough more when she is speaking for prolonged periods of time. Cough does interfere with her sleep. No sputum production. She has not heard any wheezing. She does have some sensation of inability to take a deep breath, chest pressure, and sometimes sensation that her throat is closing up. She will have stuttering breaths not particularly pr ecipitated by activity or changes in the weather or environmental exposures. She occasionally has hoarseness. She has significant gastroparesis and acid reflux disease. Recent pulmonary function testshowed mild obstruction without improvement with bronchodilator but it must be noted that she had fair effort although she met ATS guidelines. Inspiratory loop without abnormality. She was recently seen in the emergency department and was told that she had vocal cord dysfunction. Follow-up with herprimary care physician concerning for possible asthma. She was started on Trelegy Ellipta. She has trouble affording medication. She only used the Trelegy a few times. Last use was more than a week ago. Exhaled nitric oxide level today was normal at 10 ppb DATA: PFT [facility]: FVC 3.33 L 97% FEV1 2.28 L 77% FEV1/FVC 69% FEF 25-75% 1.91 L 54% Actual reduction in volumes postbronchodilator although missile tracking technician reports patient had less effort with post test aerosol treatment Normal airway resistance Labs: No past eosinophilia Imaging / Diagnostic Studies: Lower lung cuts on recent abdominal pelvic CT shows no abnormalities Recent chest x-ray from [facility] was reviewed and is normal PAST MEDICAL HISTORY Diagnosis Date DKA (diabetic ketoacidosis) ([facility]) 04/2022 Gastroparesis Hypertension Pancreatic insufficiency T1DM (type 1 diabetes mellitus) ([facility]) ALLERGIES Allergen Reactions Penicillins Rash, Vomiting insulin regular human, CONCENTRATED 500 UNIT/ML, 500 unit/mL soln Inject subcutaneously. Per sliding scale medroxyPROGESTERone (DEPO-PROVERA) 150 mg/mL injection Inject 150 mg intramuscularly every [address] (PROTONIX) 40 mg tablet Take 1 tablet by mouth once daily. wytcca-frjjffym-xpwksef (ZENPEP) 20,000-63,000- 84,000 unit delayed release capsule Take 1 capsule by mouth three times a day with meals. (Patient not taking: Reported on 08/09/2024) ramipril (ALTACE) 1.25 mg capsule Take 1.25 mg by mouth once daily. (Patient not taking: Reported on 08/09/2024) rosuvastatin (CRESTOR) 10 mg tablet Take 10 mg by mouth daily at bedtime. (Patient not taking: Reported on 08/09/2024) ecebwyhpmie-fmebmdzoo-hkvghsld (TRELEGY ELLIPTA) 100-62.5-25 mcg inhalation powder Inhale 1 Puff asinstructed once daily. (Patient not taking: Reported on 08/09/2024) lidocaine viscous (XYLOCAINE) 2 % solution Take 15 mL by mouth three times daily as needed for pain. (Patient not taking: Reported on 02/13/2023) insulin NPH injection (HumuLIN N,NovoLIN N) Inject 14 Units subcutaneously daily with breakfast AND34 Units daily at bedtime. (Patient taking differently: Inject 10 Units subcutaneously daily with breakfast AND 30 Units daily at bedtime.) ondansetron (ZOFRAN) 4 mg tablet Take 1 tablet by mouth every 8 hours as needed for nausea/vomiting. 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 Ear pressure CARDIOVASCULAR: No chest pain, dyspnea, palpitations, orthopnea, PND, edema. PULM: See HPI GI: No dysphagia/odynophagia. Gastroparesis NEURO: No balance problems, peripheral weakness/paresthesias or numbness of concern. MUSC-SKEL: No joint pain, swelling, or erythema. PSY: Anxiety INTEGUMENTARY: No new skin changes, eczema PHYSICAL EXAMINATION: Wt 164 lb (74.4kg) LMP 02/03/2023 BP 120/72, pulse 116, RR 14, SpO2 100% General Appearance: Age-appropriate, NAD. Skin: Skin color, texture, turgor normal, no suspicious rashes or lesions. Head: Normocephalic, no masses, lesions, tenderness or abnormalities. Eyes: Sclera, conjunctiva normal. Oropharynx: No oral lesions. Ears: TMs normal Neck: No JVD, no masses, no adenopathy, no stridor. Lungs: Not labored, normal to percussion, no wheezes or crackles. Heart: Regular rate and rhythm, no murmurs or gallops. Extremities: No edema or clubbing. Assessment/Plan: 1. Probable mild persistent asthma -Clinical history consistent with asthma although cannot exclude possible anxiety with vocal cord dysfunction. No chattering noted on inspiratory loop -Recommend changing inhaled therapy to Symbicort as needed per ELIO guidelines -If fails to improve she will need definitive bronchial challenge testing -IgE and eo count 2. Post COVID syndrome/cough -May have COVID induced bronchial hyperreactivity -See #1 Brenda Gillespie MD Respiratory Hull documented in this encounterChildren[facility]10-21-2024 NoteHNO ID: [id number] Author: BRENDA GILLESPIE MD Service: ? Author Type: Physician Type: Progress Notes Filed: 08/09/2024 17:00 Note Text: . Respiratory Hull Note Patient name: Santiago Jacobsen PCP: Skylar Fong MD Referring Physician: Same Consultation requested by Dr. Fong for an opinion regarding possible asthma. My final recommendations will be communicated back to the requesting physician by way of shared Medical record or letter to requesting physician via US mail. CC: Cough, shortness of breath HPI: Santiago Jacobsen 24 year old female non-smoker with PMH significant for HTN, DM 1 with history of DKA, gastroparesis, pancreatic insufficiency being referred for breathing issues. She denies a past history of asthma or allergies. She states she was well until she had COVID several years ago. Since that time she has had a persistent cough. She tends to cough more when she is speaking for prolonged periods of time. Cough does interfere with her sleep. No sputum production. She has not heard any wheezing. She does have some sensation of inability to take a deep breath, chest pressure, and sometimes sensation that her throat is closing up. She will have stuttering breaths not particularly precipitated by activity or changes in the weather or environmental exposures. She occasionally has hoarseness. She has significant gastroparesis and acid reflux disease. Recent pulmonary function test showed mild obstruction without improvement with bronchodilator but it must be noted that she had fair effort although she met ATS guidelines. Inspiratory loop without abnormality. She was recently seen in the emergency department and was told that she had vocal cord dysfunction. Follow-up with her primary care physician concerning for possible asthma. She was started on Trelegy Ellipta. She has trouble affording medication. She only used the Trelegy a few times. Last use was more than a week ago. Exhaled nitric oxide level today was normal at 10 ppb DATA: PFT [facility]: FVC 3.33 L 97% FEV1 2.28 L 77% FEV1/FVC 69% FEF 25-75% 1.91 L 54% Actual reduction in volumes postbronchodilator although missile tracking technician reports patient had less effort with post test aerosol treatment Normal airway resistance Labs: No past eosinophilia Imaging / Diagnostic Studies: Lower lung cuts on recent abdominal pelvic CT shows no abnormalities Recent chest x-ray from [facility] was reviewed and is normal PAST MEDICAL HISTORY Diagnosis Date DKA (diabetic ketoacidosis) (HCC) 04/2022 Gastroparesis Hypertension Pancreatic insufficiency T1DM (type 1 diabetes mellitus) ([facility]) ALLERGIES Allergen Reactions Penicillins Rash, Vomiting insulin regular human, CONCENTRATED 500 UNIT/ML, 500 unit/mL soln Inject subcutaneously. Per sliding scale medroxyPROGESTERone (DEPO-PROVERA) 150 mg/mL injection Inject 150 mg intramuscularly every [address] (PROTONIX) 40 mg tablet Take 1 tablet by mouth once daily. jlsqws-dwcokpzj-nwidmlh (ZENPEP) 20,000-63,000- 84,000 unit delayed release capsule Take 1 capsule by mouth three times a day with meals. (Patient not taking: Reported on 08/09/2024) ramipril (ALTACE) 1.25 mg capsule Take 1.25 mg by mouth once daily. (Patient not taking: Reported on 08/09/2024) rosuvastatin (CRESTOR) 10 mg tablet Take 10 mg by mouth daily at bedtime. (Patient not taking: Reported on 08/09/2024) vdalupzsrtm-rwskvcvyp-hkjrsbiy (TRELEGY ELLIPTA) 100-62.5-25 mcg inhalation powder Inhale 1 Puff as instructed once daily. (Patient not taking: Reported on 08/09/2024) lidocaine viscous (XYLOCAINE) 2 % solution Take 15 mL by mouth three times daily as needed for pain. (Patient not taking: Reported on 02/13/2023) insulin NPH injection (HumuLIN N,NovoLIN N) Inject 14 Units subcutaneously daily with breakfast AND 34 Units daily at bedtime. (Patient taking differently: Inject 10 Units subcutaneously daily with breakfast AND 30 Units daily at bedtime.) ondansetron (ZOFRAN) 4 mg tablet Take 1 tablet by mouth every 8 hours as needed for nausea/vomiting. 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 Ear pressure CARDIOVASCULAR: No chest pain, dyspnea, palpitations, orthopnea, PND, edema. PULM: See HPI GI: No dysphagia/odynopha (more content not included)...[facility]06-10-2024 Evaluation + Plan noteExtracted from: Title:Clinical Document Author:LAZARO DELGADO Date:03/29/24 [place] ADMISSION HISTORY AN D PHYSICIAL CHIEF COMPLAINT: HISTORY OF PRESENT ILLNESS: REVIEW OF SYSTEMS: ACTIVE PROBLEMS: (8) Anxiety ([id number]) Diarrhea (514791774) DM (diabetes mellitus) (854785411) Gastric ulcer (3772496524) Gastroparesis (366396031) GERD (gastroesophageal reflux disease) (006282033) HTN (hypertension) (6357894114) Pancreatic insufficiency (64852643) MEDICATIONS: Active Inpt Meds: None Active PRN Meds: None One Time Meds: None Active IV Meds: Lactated Ringers Infusion 1,000 mL (LR 1,000 mL) Start: 03/29/24 7:42:00 EDT, Rate: 50 mL/hr, 03/29/24 7:42:00 EDT ALLERGIES: (1) NKA FAMILY HISTORY: SOCIAL HISTORY: PHYSICAL EXAM: VITALS: QquttiOxhbCAFzaauYUHiP4AHF7MyafXv(kg) 03/29 07:4736.6--[id number] 75.0 24 Hr Tmax: 36.6 at 03/29 07:47 36 Hr Tmax: 36.6 at 03/29 07:47 Vital Signs are the last 5 in the past 48 hours. Weights display the last 5 within 7 days. Initial Wt: 03/29 75.0 kg 165 lb Current Wt: 03/29 75.0 kg 165 lb GENERAL: HEENT: CARDIOVASCULAR: RESPIRATORY: ABDOMEN: EXREMETIES: NEUROLOGICAL: PSYCHIATRIC: LABS: 36hr Labs 03/29 0801 TestSee Flowsheet testSee Flowsheet DIAGNOSTICS: IMPRESSION: PLAN: History and Physical Update I have examined the patient; reviewed the H&P and there are no changes to the H&P unless noted below. Extracted from: Title:Clinical Document Author:LAZARO DELGADO Date:03/29/24 [place] ADMISSION HISTORY AN D PHYSICIAL CHIEF COMPLAINT: HISTORY OF PRESENT ILLNESS: REVIEW OF SYSTEMS: ACTIVE PROBLEMS: (8) Anxiety ([id number]) Diarrhea (095506199) DM (diabetes mellitus) (318349042) Gastric ulcer (5840890863) Gastroparesis (434309660) GERD (gastroesophageal reflux disease) (214158550) HTN (hypertension) (1934485922) Pancreatic insufficiency (12720880) MEDICATIONS: Active Inpt Meds: None Active PRN Meds: None One Time Meds: None Active IV Meds: Lactated Ringers Infusion 1,000 mL (LR 1,000 mL) Start: 03/29/24 7:42:00 EDT, Rate: 50 mL/hr, 03/29/24 7:42:00 EDT ALLERGIES: (1) NKA FAMILY HISTORY: SOCIAL HISTORY: PHYSICAL EXAM: VITALS: GhxqdbEnflUVPgprkUPDjZ8NRD2HbfmEx(kg) 03/29 07:4736.6--[id number]/10 75.0 24 Hr Tmax: 36.6 at 03/29 07:47 36 Hr Tmax: 36.6 at 03/29 07:47 Vital Signs are the last 5 in the past 48 hours. Weights display the last 5 within 7 days. Initial Wt: 03/29 75.0 kg 165 lb Current Wt: 03/29 75.0 kg 165 lb GENERAL: HEENT: CARDIOVASCULAR: RESPIRATORY: ABDOMEN: EXREMETIES: NEUROLOGICAL: PSYCHIATRIC: LABS: 36hr Labs 03/29 0801 TestSee Flowsheet testSee Flowsheet DIAGNOSTICS: IMPRESSION: PLAN: History and Physical Update I have examined the patient; reviewed the H&P and there are no changes to the H&P unless noted below. [facility] 06-10-2024 Hospital Discharge instructions Patient Education 03/29/2024 10:05:53 Gastroparesis Gastroparesis Gastroparesis is a condition in which food takes longer than normal to empty from the stomach. The condition is usually long-lasting (chronic). It may also be called delayed gastric emptying. There is no cure, but there are treatments and things that you can do at home to help relieve symptoms. Treating the underlying condition that causes gastroparesis can also help relieve symptoms. What are the causes? In many cases, the cause of this condition is not known. Possible causes include: A hormone (endocrine) disorder, such as hypothyroidism or diabetes. A nervous system disease, such as Parkinson's disease or multiple sclerosis. Cancer, infection, or surgery that affects the stomach or vagus nerve. The vagus nerve runs from your chest, through your neck, to the lower part of your brain. A connective tissue disorder, such as scleroderma. Certain medicines. What increases the risk? You are more likely to develop this condition if you: Have certain disorders or diseases, including: ?An endocrine disorder. ?An eating disorder. ?Amyloidosis. ?Scleroderma. ?Parkinson's disease. ?Multiple sclerosis. ?Cancer or infection of the stomach or the vagus nerve. Have had surgery on the stomach or vagus nerve. Take certain medicines. Are female. What are the signs or symptoms? Symptoms of this condition include: Feeling full after eating very little. Nausea. Vomiting. Heartburn. Abdominal bloating. Inconsistent blood sugar (glucose) levels on blood tests. Lack of appetite. Weight loss. Acid from the stomach coming up into the esophagus (gastroesophageal reflux). Sudden tightening (spasm) of the stomach, which can be painful. Symptoms may come and go. Some people may not notice any symptoms. How is this diagnosed? This condition is diagnosed with tests, such as: Tests that check how long it takes food to move through the stomach and intestines. These tests include: ?Upper gastrointestinal (GI) series. For this test, you drink a liquid that shows up well on X-rays, and then X-rays will be taken of your intestines. ?Gastric emptying scintigraphy. For this test, you eat food that contains a small amount of radioactive material, and then scans are taken. ?Wireless capsule GI monitoring system. For this test, you swallow a pill (capsule) that records information about how foods and fluid move through your stomach. Gastric manometry. For this test, a tube is passed down your throat and into your stomach to measure electrical and muscular activity. Endoscopy. For this test, a long, thin tube is passed down your throat and into your stomach to check for problems in your stomach lining. Ultrasound. This test uses sound waves to create images of inside the body. This can help rule out gallbladder disease or pancreatitis as a cause of your symptoms. How is this treated? There is no cure for gastroparesis. Treatment may include: Treating the underlying cause. Managing your symptoms by making changes to your diet and exercise habits. Taking medicines to control nausea and vomiting and to stimulate stomach muscles. Getting food through a feeding tube in the hospital. This may be done in severe cases. Having surgery to insert a device into your body that helps improve stomach emptying and control nausea and vomiting (gastric neurostimulator). Follow these instructions at home: Take gezx-vrf-nvfzadc and prescription medicines only as told by your health care provider. Follow instructions from your health care provider about eating or drinking restrictions. Your health care provider may recommend that you: ?Eat smaller meals more often. ?Eat low-fat foods. ?Eat low-fiber forms of high-fiber foods. For example, eat cooked vegetables instead of raw vegetables. ?Have only liquid foods instead of solid foods. Liquid foods are easier to digest. Drink enough fluid to keep your urine pale yellow. Exercise as often as told by your health care provider. Keep all follow-up visits as told by your health care provider. This is important. Contact a health care provider if you: Notice that your symptoms do not improve with treatment. Have new symptoms. Get help right away if you: Have severe abdominal pain that does not improve with treatment. Have nausea that is severe or does not go away. Cannot drink fluids without vomiting. Summary Gastroparesis is a chronic condition in which food takes longer than normal to empty from the stomach. Symptoms include nausea, vomiting, heartburn, abdominal bloating, and loss of appetite. Eating smaller portions, and low-fat, low-fiber foods may help you manage your symptoms. Get help right away if you have severe abdominal pain. This information is not intended to replace advice given to you by your health care provider. Make sure you discuss any questions you have with your health care provider. Document Released: 10/06/2006 Document Revised: 01/04/2019 Document Reviewed: 08/11/2018 [employer] Patient Education 2020 [employer] 03/29/2024 09:52:58 Gastritis, Adult, Iwjr-sy-Nlcs Gastritis, Adult Gastritis is swelling (inflammation) of the stomach. Gastritis can develop quickly (acute). It can also develop slowly over time (chronic). It is important to get help for this condition. If you do not get help, your stomach can bleed, and you can get sores (ulcers) in your stomach. What are the causes? This condition may be caused by: Germs that get to your stomach. Drinking too much alcohol. Medicines you are taking. Too much acid in the stomach. A disease of the intestines or stomach. Stress. An allergic reaction. Crohn's disease. Some cancer treatments (radiation). Sometimes the cause of this condition is not known. What are the signs or symptoms? Symptoms of this condition include: Pain in your stomach. A burning feeling in your stomach. Feeling sick to your stomach (nauseous). Throwing up (vomiting). Feeling too full after you eat. Weight loss. Bad breath. Throwing up blood. Blood in your poop (stool). How is this diagnosed? This condition may be diagnosed with: Your medical history and symptoms. A physical exam. Tests. These can include: ?Blood tests. ?Stool tests. ?A procedure to look inside your stomach (upper endoscopy). ?A test in which a sample of tissue is taken for testing (biopsy). How is this treated? Treatment for this condition depends on what caused it. You may be given: Antibiotic medicine, if your condition was caused by germs. H2 blockers and similar medicines, if your condition was caused by too much acid. Follow these instructions at home: Medicines Take bqbt-ser-vzibtkb and prescription medicines only as told by your doctor. If you were prescribed an antibiotic medicine, take it as told by your doctor. Do not stop taking it even if you start to feel better. Eating and drinking Eat small meals often, instead of large meals. Avoid foods and drinks that make your symptoms worse. Drink enough fluid to keep your pee (urine) pale yellow. Alcohol use Do not drink alcohol if: ?Your doctor tells you not to drink. ?You are , may be , or are planning to become . If you drink alcohol: ?Limit your use to: ?0 1 drink a day for women. ?0 2 drinks a day for men. ?Be aware of how much alcohol is in your drink. In the [place] one drink equals one 12 oz bottle of beer (355 mL), one 5 oz glass of wine (148 mL), or one 1 oz glass of hard liquor (44 mL). General instructions Talk with your doctor about ways to manage stress. You can exercise or do deep breathing, meditation, or yoga. Do not smoke or use products that have nicotine or tobacco. If you need help quitting, ask your doctor. Keep all follow-up visits as told by your doctor. This is important. Contact a doctor if: Your symptoms get worse. Your symptoms go away and then come back. Get help right away if: You throw up blood or something that looks like coffee grounds. You have black or dark red poop. You throw up any time you try to drink fluids. Your stomach pain gets worse. You have a fever. You do not feel better after one week. Summary Gastritis is swelling (inflammation) of the stomach. You must get help for this condition. If you do not get help, your stomach can bleed, and you can get sores (ulcers). This condition is diagnosed with medical history, physical exam, or tests. You can be treated with medicines for germs or medicines to block too much acid in your stomach. This information is not intended to replace advice given to you by your health care provider. Make sure you discuss any questions you have with your health care provider. Document Released: 03/24/2009 Document Revised: 02/23/2019 Document Reviewed: 02/23/2019 [employer] Patient Education 2020 [employer] 03/29/2024 09:27:47 Nausea and Vomiting, Adult, Rvhr-ni-Oeyw Nausea and Vomiting, Adult Nausea is feeling sick to your stomach or feeling that you are about to throw up (vomit). Vomiting is when food in your stomach is thrown up and out of the mouth. Throwing up can make you feel weak. It can also make you lose too much water in your body (get dehydrated). If you lose too much water in your body, you may: Feel tired. Feel thirsty. Have a dry mouth. Have cracked lips. Go pee (urinate) less often. Older adults and people with other diseases or a weak body defense system (immune system) are at higher risk for losing too much water in the body. If you feel sick to your stomach and you throw up, it is important to follow instructions from your doctor about how to take care of yourself. Follow these instructions at home: Watch your symptoms for any changes. Tell your doctor about them. Follow these instructions to carefor yourself at home. Eating and drinking Take an ORS (oral rehydration solution). This is a drink that is sold at pharmacies and stores. Drink clear fluids in small amounts as you are able, such as: ?Water. ?Ice chips. ?Fruit juice that has water added (diluted fruit juice). ?Low-calorie sports drinks. Eat bland, kazk-nl-qtztdu foods in small amounts as you are able, such as: ?Bananas. ?Applesauce. ?Rice. ?Low-fat (lean) meats. ?[place]. ?Crackers. Avoid drinking fluids that have a lot of sugar or caffeine in them. This includes energy drinks, sports drinks, and soda. Avoid alcohol. Avoid spicy or fatty foods. General instructions Take vqyu-eub-eyevzrf and prescription medicines only as told by your doctor. Drink enough fluid to keep your pee (urine) pale yellow. Wash your hands often with soap and water. If you cannot use soap and water, use hand senior physical therapist. Make sure that all people in your home wash their hands well and often. Rest at home while you get better. Watch your condition for any changes. Take slow and deep breaths when you feel sick to your stomach. Keep all follow-up visits as told by your doctor. This is important. Contact a doctor if: Your symptoms get worse. You have new symptoms. You have a fever. You cannot drink fluids without throwing up. You feel sick to your stomach for more than 2 days. You feel light-headed or dizzy. You have a headache. You have muscle cramps. You have a rash. You have pain while peeing. Get help right away if: You have pain in your chest, neck, arm, or jaw. You feel very weak or you pass out (faint). You throw up again and again. You have throw up that is bright red or looks like black coffee grounds. You have bloody or black poop (stools) or poop that looks like tar. You have a very bad headache, a stiff neck, or both. You have very bad pain, cramping, or bloating in your belly (abdomen). You have trouble breathing. You are breathing very quickly. Your heart is beating very quickly. Your skin feels cold and clammy. You feel confused. You have signs of losing too much water in your body, such as: ?Dark pee, very little pee, or no pee. ?Cracked lips. ?Dry mouth. ?Sunken eyes. ?Sleepiness. ?Weakness. These symptoms may be an emergency. Do not wait to see if the symptoms will go away. Get medical help right away. Call your local emergency services (911 in the [place] Do not drive yourself to the hospital. Summary Nausea is feeling sick to your stomach or feeling that you are about to throw up (vomit). Vomiting is when food in your stomach is thrown up and out of the mouth. Follow instructions from your doctor about eating and drinking to keep from losing too much water in your body. Take xyoi-cid-brxzkpp and prescription medicines only as told by your doctor. Contact your doctor if your symptoms get worse or you have new symptoms. Keep all follow-up visits as told by your doctor. This is important. This information is not intended to replace advice given to you by your health care provider. Make sure you discuss any questions you have with your health care provider. Document Released: 03/24/2009 Document Revised: 01/28/2020 Document Reviewed: 03/16/2019 [employer] Patient Education 2020 [employer] 03/29/2024 09:27:41 Moderate Conscious Sedation, Adult, Care After Moderate Conscious Sedation, Adult, Care After These instructions provide you with information about caring for yourself after your procedure. Your health care provider may also give you more specific instructions. Your treatment has been plannedaccording to current medical practices, but problems sometimes occur. Call your health care provider if you have any problems or questions after your procedure. What can I expect after the procedure? After your procedure, it is common: To feel sleepy for several hours. To feel clumsy and have poor balance for several hours. To have poor judgment for several hours. To vomit if you eat too soon. Follow these instructions at home: For at least 24 hours after the procedure: Do not: ?Participate in activities where you could fall or become injured. ?Drive. ?Use heavy machinery. ?Drink alcohol. ?Take sleeping pills or medicines that cause drowsiness. ?Make important decisions or sign legal documents. ?Take care of children on your own. Rest. Eating and drinking Follow the diet recommended by your health care provider. If you vomit: ?Drink water, juice, or soup when you can drink without vomiting. ?Make sure you have little or no nausea before eating solid foods. General instructions Have a responsible adult stay with you until you are awake and alert. Take worl-gbh-ljheojq and prescription medicines only as told by your health care provider. If you smoke, do not smoke without supervision. Keep all follow-up visits as told by your health care provider. This is important. Contact a health care provider if: You keep feeling nauseous or you keep vomiting. You feel light-headed. You develop a rash. You have a fever. Get help right away if: You have trouble breathing. This information is not intended to replace advice given to you by your health care provider. Make sure you discuss any questions you have with your health care provider. Document Released: 07/27/2014 Document Revised: 09/18/2018 Document Reviewed: 01/25/2017 [employer] Patient Education 2020 [employer]. 03/29/2024 09:27:26 9 - AO Minor Esophagogastroduodenoscopy (12/31)(CUSTOM) Esophagogastroduodenoscopy This is an endoscopic procedure (a procedure that uses a device like a flexible telescope) that allows your caregiver to view the upper stomach and small bowel. This test allows your caregiver to look at the esophagus. The esophagus carries food from your mouth to your stomach. They can also look at your duodenum. This is the first part of the small intestine that attaches to the stomach. This charles t is used to detect problems in the bowel such as ulcers and inflammation. MEANING OF TEST Your caregiver will go over the test results with you and discuss the importance and meaning of your results, as well as treatment options and the need for additional tests if necessary. OBTAINING THE TEST RESULTS Your caregiver s office will call you with the results of the test. POST SEDATION INSTRUCTIONS Rest at home today. Since your coordination may be impaired, be cautious on stairways, do not drive any vehicle or operate any heavy machinery, or use any sharp instruments for the remainder of the day. Do not drink any alcoholic beverages or make any major decisions for 24 hours. POST PROCEDURE INSTRUCTIONS Progress slowly with full liquids then resume previous diet and medications. Belching or passing of gas is to be expected. Notify the physician if you have severe chest pain, fever, or if difficulty when swallowing persists. 12/28/13 Custom Follow Up Care 03/16/2024 16:02:54 With:LAZARO DELGADO MD Address: [address] [place], [place] [id number] [phone] When: Unknown Comments[facility]1 to 2 [facility]S [facility] Discharge Instructions Thank you for allowing [facility] to assist you with your healthcare needs. The following is importantdischarge information regarding your hospital visit. Your Care Team SKYLAR FONG MD, Dr. What to do next Follow Up Appointments Follow Up with LAZARO DELGADO MD Where:[address] [facility] [address] [place] [phone] Additional Information: 1 to 2 MONTHS Allergies NKA Medications Please ask your primary doctor or pharmacist before taking any other medication not listed, including over the counter drugs, herbal medications, vitamins and or supplements as they may interact withyour home medications. What How Much When Instructions Last Dose Unchanged insulin lispro (HumaLOG) (HumaLOG 100 units/ mLinjectable solution VIAL) 1 unit(s) Subcutaneous Unchanged insulin regular (Humulin R (CONCENTRATED) 500 units/ mL 20 mL VIAL*) Subcutaneous (INT) Unchanged pancrelipase (Zenpep 20,000 units-63,000 units-84,000 units oral delayed release capsule) 1 cap by mouth Three (3) times a day Unchanged pantoprazole (pantoprazole 40 mg oral enteric coated tablet) 1 tab(s) by mouth Once a day Unchanged ramipril (ramipril 1.25 mg oral capsule) 1 cap by mouth Once a day Please take this list to your next doctor s visit. Bring all medications you take, including over the counter medications, herbals and other supplements with you to your doctor s visit. Patients and families are reminded to discard old lists and to update any records with all medication providers or retail pharmacies. Medication Leaflets metoclopramide (oral/injection) (MET hayde Pereira What is the most important information I should know about metoclopramide? Do not use this medicine if you've ever had muscle movement problems after using metoclopramide or similar medicines, or if you've had a movement disorder called tardive dyskinesia. You also should not use metoclopramide if you've had stomach or intestinal problems (a blockage, bleeding, or a hole or tear), epilepsy or other seizure disorder, or an adrenal gland tumor (pheochromocytoma). NEVER USE METOCLOPRAMIDE IN LARGER AMOUNTS THAN RECOMMENDED, OR FOR LONGER THAN 12 WEEKS. High doses or long-term use of metoclopramide can cause a serious movement disorder that may not be reversible. The longer you use metoclopramide, the more likely you are to develop this movement disorder. Therisk of this side effect is higher in diabetics and older adults (especially women). Call your doctor at once if you have uncontrollable muscle movements in your lips, tongue, eyes, face, arms, or legs. What is metoclopramide? Metoclopramide increases muscle contractions in the upper digestive tract. This speeds up the rate at which the stomach empties into the intestines. Metoclopramide oral (taken by mouth) is used for 4 to 12 weeks to treat heartburn caused by gastroesophageal reflux in people who have used other medications without relief. Metoclopramide oral is also used to treat gastroparesis (slow stomach emptying) in people with diabetes, which can cause heartburn and stomach discomfort after meals. Metoclopramide injection is used to treat severe diabetic gastroparesis. The injection is also usedto prevent nausea and vomiting caused by chemotherapy or surgery, or to aid in certain medical procedures involving the stomach or intestines. Metoclopramide may also be used for purposes not listed in this medication guide. What should I discuss with my healthcare provider before using metoclopramide? You should not use metoclopramide if you are allergic to it, or if you have: tardive dyskinesia (a disorder of involuntary movements); stomach or intestinal problems such as a blockage, bleeding, or perforation (a hole or tear in yourstomach or intestines); epilepsy or other seizure disorder; an adrenal gland tumor (pheochromocytoma); or if you've ever had muscle movement problems after using metoclopramide or similar medicines. Tell your doctor if you have ever had: liver or kidney disease; problems with muscle movements; congestive heart failure or a heart rhythm disorder; high blood pressure; seizures; breast cancer; Parkinson's disease; diabetes; or depression or mental illness. This medicine may contain phenylalanine. Check the medication label if you have phenylketonuria (PKU). Tell your doctor if you are . Metoclopramide may harm an unborn baby if you use the medicine during late . It may not be safe to breast-feed a baby while you are using this medicine. Ask your doctor about any risks. Metoclopramide is not approved for use by anyone younger than 18 years old. How should I use metoclopramide? Follow the directions on your prescription label and read all medication guides. Use the medicine exactly as directed. A metoclopramide injection is given into a muscle or as an infusion into a vein. A healthcare provider will give the injection, usually during surgery, chemotherapy, or a medical procedure. Metoclopramide oral is taken for only 4 to 12 weeks. NEVER USE METOCLOPRAMIDE IN LARGER AMOUNTS THAN RECOMMENDED, OR FOR LONGER THAN 12 WEEKS. High doses or long-term use of metoclopramide can cause a serious movement disorder that may not be reversible. The longer you use metoclopramide, the more likely you are to develop this movement disorder. Therisk of this side effect is higher in diabetics and older adults (especially women). Metoclopramide is usually taken 30 minutes before meals and at bedtime, or only with meals that usually cause heartburn. Follow your doctor's dosing instructions very carefully. Do not use two different forms of metoclopramide (such as tablets and oral syrup) at the same time. Measure liquid medicine carefully. Use the dosing syringe provided, or use a medicine dose-measuring device (not a kitchen spoon). To take the orally disintegrating tablet (ODT): Remove a tablet from its blister pack only when you are ready to take the tablet. Use dry hands andtake care not to damage a tablet while pushing it out of the blister. Place the tablet in your mouth and allow it to dissolve, without chewing or swallowing it whole. You may sip liquid if needed to help swallow the dissolved tablet. Store at room temperature in a tightly-closed container, away from moisture and heat. Keep the bottle tightly closed. After you stop taking metoclopramide, you may have unpleasant withdrawal symptoms such as headache,dizziness, or nervousness. What happens if I miss a dose? Take the medicine as soon as you can, but skip the missed dose if it is almost time for your next dose. Do not take two doses at one time. What happens if I overdose? Seek emergency medical attention or call the Poison Help line at . Overdose symptoms may include drowsiness, confusion, or uncontrolled muscle movements. What should I avoid while taking metoclopramide? Drinking alcohol with this medicine can cause side effects. Avoid driving or hazardous activity until you know how this medicine will affect you. Your reactions could be impaired. What are the possible side effects of metoclopramide? Get emergency medical help if you have signs of an allergic reaction: hives; difficult breathing; swelling of your face, lips, tongue, or throat. Stop taking metoclopramide and call your doctor at once if you have any of these SIGNS OF A SERIOUSMOVEMENT DISORDER, which may occur within the first 2 days of treatment: tremors or shaking in your arms or legs; uncontrolled muscle movements in your face (chewing, lip smacking, frowning, tongue movement, blinking or eye movement); or any new or unusual muscle movements you cannot control. Call your doctor at once if you have: confusion, depression, thoughts of suicide or hurting yourself; slow or jerky muscle movements, problems with balance or walking; mask-like appearance in your face; a seizure; anxiety, agitation, jittery feeling, trouble staying still, trouble sleeping; swelling, feeling short of breath, rapid weight gain; or severe nervous system reaction--very stiff (rigid) muscles, high fever, sweating, confusion, fast or uneven heartbeats, tremors, feeling like you might pass out. Common side effects may include: feeling restless; feeling drowsy or tired; lack of energy; nausea, vomiting; headache, confusion; or sleep problems (insomnia). This is not a complete list of side effects and others may occur. Call your doctor for medical advice about side effects. You may report side effects to FDA at 5-921-RQW-1315. What other drugs will affect metoclopramide? Using metoclopramide with other drugs that make you drowsy can worsen this effect. Ask your doctor before you take opioid pain medication, a sleeping pill, a muscle relaxer, or medicine for anxiety, depression, or seizures. Tell your doctor about all your current medicines. Many drugs can affect metoclopramide, especially: an antidepressant; antipsychotic medication; blood pressure medication; insulin; medicine to treat Parkinson's disease or restless leg syndrome; or an MAO inhibitor--isocarboxazid, linezolid, methylene blue injection, phenelzine, tranylcypromine, and others. This list is not complete and many other drugs may affect metoclopramide. This includes prescription and tyvl-vjs-axhqqhj medicines, vitamins, and herbal products. Not all possible drug interactions are listed here. Where can I get more information? Your pharmacist can provide more information about metoclopramide. Remember, keep this and all other medicines out of the reach of children, never share your medicines with others, and use this medication only for the indication prescribed. Every effort has been made to ensure that the information provided by [employer]. ('[employer]') is accurate, up-to-date, and complete, but no guarantee is made to that effect. Drug information contained herein may be time sensitive. [employer] information has been compiled for use by healthcare practitioners and consumers in the [place] and therefore [employer] does not warrant that uses outside of the [place] are appropriate, unless specifically indicated otherwise. [employer] drug information does not endorse drugs, diagnose patients or recommend therapy. [employer] drug information isan informational resource designed to assist licensed healthcare practitioners in caring for their p atients and/or to serve consumers viewing this service as a supplement to, and not a substitute for, the expertise, skill, knowledge and judgment of healthcare practitioners. The absence of a warningfor a given drug or drug combination in no way should be construed to indicate that the drug or drug combination is safe, effective or appropriate for any given patient. [employer] does not assume any responsibility for any aspect of healthcare administered with the aid of information [employer] provides. The information contained herein is not intended to cover all possible uses, directions, precautions, warnings, drug interactions, allergic reactions, or adverse effects. If you have questions about the drugs you are taking, check with your doctor, nurse or pharmacist. Copyright 7320-4002 [employer]. Version: 14.01. Revision Date: 05/28/2023. Education Materials Gastroparesis Gastroparesis is a condition in which food takes longer than normal to empty from the stomach. The condition is usually long-lasting (chronic). It may also be called delayed gastric emptying. There is no cure, but there are treatments and things that you can do at home to help relieve symptoms. Treating the underlying condition that causes gastroparesis can also help relieve symptoms. What are the causes? In many cases, the cause of this condition is not known. Possible causes include: A hormone (endocrine) disorder, such as hypothyroidism or diabetes. A nervous system disease, such as Parkinson's disease or multiple sclerosis. Cancer, infection, or surgery that affects the stomach or vagus nerve. The vagus nerve runs from your chest, through your neck, to the lower part of your brain. A connective tissue disorder, such as scleroderma. Certain medicines. What increases the risk? You are more likely to develop this condition if you: Have certain disorders or diseases, including: ? An endocrine disorder. ? An eating disorder. ? Amyloidosis. ? Scleroderma. ? Parkinson's disease. ? Multiple sclerosis. ? Cancer or infection of the stomach or the vagus nerve. Have had surgery on the stomach or vagus nerve. Take certain medicines. Are female. What are the signs or symptoms? Symptoms of this condition include: Feeling full after eating very little. Nausea. Vomiting. Heartburn. Abdominal bloating. Inconsistent blood sugar (glucose) levels on blood tests. Lack of appetite. Weight loss. Acid from the stomach coming up into the esophagus (gastroesophageal reflux). Sudden tightening (spasm) of the stomach, which can be painful. Symptoms may come and go. Some people may not notice any symptoms. How is this diagnosed? This condition is diagnosed with tests, such as: Tests that check how long it takes food to move through the stomach and intestines. These tests include: ? Upper gastrointestinal (GI) series. For this test, you drink a liquid that shows up well on X-rays,and then X-rays will be taken of your intestines. ? Gastric emptying scintigraphy. For this test, you eat food that contains a small amount of radioactive material, and then scans are taken. ? Wireless capsule GI monitoring system. For this test, you swallow a pill (capsule) that records information about how foods and fluid move through your stomach. Gastric manometry. For this test, a tube is passed down your throat and into your stomach to measure electrical and muscular activity. Endoscopy. For this test, a long, thin tube is passed down your throat and into your stomach to check for problems in your stomach lining. Ultrasound. This test uses sound waves to create images of inside the body. This can help rule out gallbladder disease or pancreatitis as a cause of your symptoms. How is this treated? There is no cure for gastroparesis. Treatment may include: Treating the underlying cause. Managing your symptoms by making changes to your diet and exercise habits. Taking medicines to control nausea and vomiting and to stimulate stomach muscles. Getting food through a feeding tube in the hospital. This may be done in severe cases. Having surgery to insert a device into your body that helps improve stomach emptying and control nausea and vomiting (gastric neurostimulator). Follow these instructions at home: Take hkpv-sak-qbjccjp and prescription medicines only as told by your health care provider. Follow instructions from your health care provider about eating or drinking restrictions. Your health care provider may recommend that you: ? Eat smaller meals more often. ? Eat low-fat foods. ? Eat low-fiber forms of high-fiber foods. For example, eat cooked vegetables instead of raw vegetables. ? Have only liquid foods instead of solid foods. Liquid foods are easier to digest. Drink enough fluid to keep your urine pale yellow. Exercise as often as told by your health care provider. Keep all follow-up visits as told by your health care provider. This is important. Contact a health care provider if you: Notice that your symptoms do not improve with treatment. Have new symptoms. Get help right away if you: Have severe abdominal pain that does not improve with treatment. Have nausea that is severe or does not go away. Cannot drink fluids without vomiting. Summary Gastroparesis is a chronic condition in which food takes longer than normal to empty from the stomach. Symptoms include nausea, vomiting, heartburn, abdominal bloating, and loss of appetite. Eating smaller portions, and low-fat, low-fiber foods may help you manage your symptoms. Get help right away if you have severe abdominal pain. This information is not intended to replace advice given to you by your health care provider. Make sure you discuss any questions you have with your health care provider. Document Released: 10/06/2006 Document Revised: 01/04/2019 Document Reviewed: 08/11/2018 [employer] Patient Education 2020 [employer] Gastritis, Adult Gastritis is swelling (inflammation) of the stomach. Gastritis can develop quickly (acute). It can also develop slowly over time (chronic). It is important to get help for this condition. If you do not get help, your stomach can bleed, and you can get sores (ulcers) in your stomach. What are the causes? This condition may be caused by: Germs that get to your stomach. Drinking too much alcohol. Medicines you are taking. Too much acid in the stomach. A disease of the intestines or stomach. Stress. An allergic reaction. Crohn's disease. Some cancer treatments (radiation). Sometimes the cause of this condition is not known. What are the signs or symptoms? Symptoms of this condition include: Pain in your stomach. A burning feeling in your stomach. Feeling sick to your stomach (nauseous). Throwing up (vomiting). Feeling too full after you eat. Weight loss. Bad breath. Throwing up blood. Blood in your poop (stool). How is this diagnosed? This condition may be diagnosed with: Your medical history and symptoms. A physical exam. Tests. These can include: ? Blood tests. ? Stool tests. ? A procedure to look inside your stomach (upper endoscopy). ? A test in which a sample of tissue is taken for testing (biopsy). How is this treated? Treatment for this condition depends on what caused it. You may be given: Antibiotic medicine, if your condition was caused by germs. H2 blockers and similar medicines, if your condition was caused by too much acid. Follow these instructions at home: Medicines Take leuo-vyo-vhfrenp and prescription medicines only as told by your doctor. If you were prescribed an antibiotic medicine, take it as told by your doctor. Do not stop taking it even if you start to feel better. Eating and drinking Eat small meals often, instead of large meals. Avoid foods and drinks that make your symptoms worse. Drink enough fluid to keep your pee (urine) pale yellow. Alcohol use Do not drink alcohol if: ? Your doctor tells you not to drink. ? You are , may be , or are planning to become . If you drink alcohol: ? Limit your use to: ? 0 1 drink a day for women. ? 0 2 drinks a day for men. ? Be aware of how much alcohol is in your drink. In the [place] one drink equals one 12 oz bottle of beer (355 mL), one 5 oz glass of wine (148 mL), or one 1 oz glass of hard liquor (44 mL). General instructions Talk with your doctor about ways to manage stress. You can exercise or do deep breathing, meditation, or yoga. Do not smoke or use products that have nicotine or tobacco. If you need help quitting, ask your doctor. Keep all follow-up visits as told by your doctor. This is important. Contact a doctor if: Your symptoms get worse. Your symptoms go away and then come back. Get help right away if: You throw up blood or something that looks like coffee grounds. You have black or dark red poop. You throw up any time you try to drink fluids. Your stomach pain gets worse. You have a fever. You do not feel better after one week. Summary Gastritis is swelling (inflammation) of the stomach. You must get help for this condition. If you do not get help, your stomach can bleed, and you can get sores (ulcers). This condition is diagnosed with medical history, physical exam, or tests. You can be treated with medicines for germs or medicines to block too much acid in your stomach. This information is not intended to replace advice given to you by your health care provider. Make sure you discuss any questions you have with your health care provider. Document Released: 03/24/2009 Document Revised: 02/23/2019 Document Reviewed: 02/23/2019 [employer] Patient Education 2020 [employer]. Nausea and Vomiting, Adult Nausea is feeling sick to your stomach or feeling that you are about to throw up (vomit). Vomiting is when food in your stomach is thrown up and out of the mouth. Throwing up can make you feel weak. It can also make you lose too much water in your body (get dehydrated). If you lose too much water in your body, you may: Feel tired. Feel thirsty. Have a dry mouth. Have cracked lips. Go pee (urinate) less often. Older adults and people with other diseases or a weak body defense system (immune system) are at higher risk for losing too much water in the body. If you feel sick to your stomach and you throw up, it is important to follow instructions from your doctor about how to take care of yourself. Follow these instructions at home: Watch your symptoms for any changes. Tell your doctor about them. Follow these instructions to carefor yourself at home. Eating and drinking Take an ORS (oral rehydration solution). This is a drink that is sold at pharmacies and stores. Drink clear fluids in small amounts as you are able, such as: ? Water. ? Ice chips. ? Fruit juice that has water added (diluted fruit juice). ? Low-calorie sports drinks. Eat bland, bsty-kj-lnswom foods in small amounts as you are able, such as: ? Bananas. ? Applesauce. ? Rice. ? Low-fat (lean) meats. ? [place]. ? Crackers. Avoid drinking fluids that have a lot of sugar or caffeine in them. This includes energy drinks, sports drinks, and soda. Avoid alcohol. Avoid spicy or fatty foods. General instructions Take sapb-glk-qnahgmg and prescription medicines only as told by your doctor. Drink enough fluid to keep your pee (urine) pale yellow. Wash your hands often with soap and water. If you cannot use soap and water, use hand senior physical therapist. Make sure that all people in your home wash their hands well and often. Rest at home while you get better. Watch your condition for any changes. Take slow and deep breaths when you feel sick to your stomach. Keep all follow-up visits as told by your doctor. This is important. Contact a doctor if: Your symptoms get worse. You have new symptoms. You have a fever. You cannot drink fluids without throwing up. You feel sick to your stomach for more than 2 days. You feel light-headed or dizzy. You have a headache. You have muscle cramps. You have a rash. You have pain while peeing. Get help right away if: You have pain in your chest, neck, arm, or jaw. You feel very weak or you pass out (faint). You throw up again and again. You have throw up that is bright red or looks like black coffee grounds. You have bloody or black poop (stools) or poop that looks like tar. You have a very bad headache, a stiff neck, or both. You have very bad pain, cramping, or bloating in your belly (abdomen). You have trouble breathing. You are breathing very quickly. Your heart is beating very quickly. Your skin feels cold and clammy. You feel confused. You have signs of losing too much water in your body, such as: ? Dark pee, very little pee, or no pee. ? Cracked lips. ? Dry mouth. ? Sunken eyes. ? Sleepiness. ? Weakness. These symptoms may be an emergency. Do not wait to see if the symptoms will go away. Get medical help right away. Call your local emergency services (911 in the [place] Do not drive yourself to the hospital. Summary Nausea is feeling sick to your stomach or feeling that you are about to throw up (vomit). Vomiting is when food in your stomach is thrown up and out of the mouth. Follow instructions from your doctor about eating and drinking to keep from losing too much water in your body. Take layp-aev-rgskfkz and prescription medicines only as told by your doctor. Contact your doctor if your symptoms get worse or you have new symptoms. Keep all follow-up visits as told by your doctor. This is important. This information is not intended to replace advice given to you by your health care provider. Make sure you discuss any questions you have with your health care provider. Document Released: 03/24/2009 Document Revised: 01/28/2020 Document Reviewed: 03/16/2019 [employer] Patient Education 2020 [employer] Moderate Conscious Sedation, Adult, Care After These instructions provide you with information about caring for yourself after your procedure. Your health care provider may also give you more specific instructions. Your treatment has been plannedaccording to current medical practices, but problems sometimes occur. Call your health care provider if you have any problems or questions after your procedure. What can I expect after the procedure? After your procedure, it is common: To feel sleepy for several hours. To feel clumsy and have poor balance for several hours. To have poor judgment for several hours. To vomit if you eat too soon. Follow these instructions at home: For at least 24 hours after the procedure: Do not: ? Participate in activities where you could fall or become injured. ? Drive. ? Use heavy machinery. ? Drink alcohol. ? Take sleeping pills or medicines that cause drowsiness. ? Make important decisions or sign legal documents. ? Take care of children on your own. Rest. Eating and drinking Follow the diet recommended by your health care provider. If you vomit: ? Drink water, juice, or soup when you can drink without vomiting. ? Make sure you have little or no nausea before eating solid foods. General instructions Have a responsible adult stay with you until you are awake and alert. Take bdss-nlw-koxyahg and prescription medicines only as told by your health care provider. If you smoke, do not smoke without supervision. Keep all follow-up visits as told by your health care provider. This is important. Contact a health care provider if: You keep feeling nauseous or you keep vomiting. You feel light-headed. You develop a rash. You have a fever. Get help right away if: You have trouble breathing. This information is not intended to replace advice given to you by your health care provider. Make sure you discuss any questions you have with your health care provider. Document Released: 07/27/2014 Document Revised: 09/18/2018 Document Reviewed: 01/25/2017 [employer] Patient Education 2020 [employer] Esophagogastroduodenoscopy This is an endoscopic procedure (a procedure that uses a device like a flexible telescope) that allows your caregiver to view the upper stomach and small bowel. This test allows your caregiver to look at the esophagus. The esophagus carries food from your mouth to your stomach. They can also look at your duodenum. This is the first part of the small intestine that attaches to the stomach. This charles t is used to detect problems in the bowel such as ulcers and inflammation. MEANING OF TEST Your caregiver will go over the test results with you and discuss the importance and meaning of your results, as well as treatment options and the need for additional tests if necessary. OBTAINING THE TEST RESULTS Your caregiver s office will call you with the results of the test. POST SEDATION INSTRUCTIONS Rest at home today. Since your coordination may be impaired, be cautious on stairways, do not drive any vehicle or operate any heavy machinery, or use any sharp instruments for the remainder of the day. Do not drink any alcoholic beverages or make any major decisions for 24 hours. POST PROCEDURE INSTRUCTIONS Progress slowly with full liquids then resume previous diet and medications. Belching or passing of gas is to be expected. Notify the physician if you have severe chest pain, fever, or if difficulty when swallowing persists. 12/28/13 Custom Additional Information VACCINATE! IT SAVES LIVES! Members of the community who have not yet received the COVID-19 vaccine and would like to receive it can visit one of [facility] vaccine clinics. There are many vaccine clinic locations within the [facility]. For locations and available times, please visit [email or web address].[place].[email or web address] It is important to note that some COVID mobile vaccine clinics are held outdoors and may be canceled in rainy or stormy conditions. To learn more about pediatric vaccinations (ages 5-11), we invite you to visit the [facility] webpage. [email or web address]/[email or web address] stions.htmlTo learn more about the COVID-19 vaccine, we invite you to visit the CDC website for a list of frequently asked questions.https://www.cdc.gov/coronavirus/2019-ncov/vaccines/faq.html [employer] Patient Portal Access Instructions: Stay connected with your healthcare team and access your personal medical information anytime with the [employer] Patient Portal. Please follow the directions below to create your [employer] account: 1.Access the email account you provided upon registration to the hospital/physician office.2.Look for an invitation email from [facility].3.Open the email and access the invitation link: AcceptInvitation to [employer].4.Fill in the required potter to create your account. To access your account, visit [employer] [employer]. Click the blue button labeled Access Patient Portal and then log in with the username and password that you created in the steps above. You will be able to view your test results, lab results, a summary of your visits, upcoming appointments and more. There is also a convenient messaging option where you can send secure messages to your p rovider. In addition, you will have the ability to download any documents or summaries to your computer and/or send the information securely to a physician. Remember that your healthcare information is confidential, so carefully consider who you will allowto register on the [employer] Patient Portal for access to your information. You can also access the [employer] Patient Portal on the [employer] jacobo. Simply click on Patient Portal and then log into your account. If you would like to receive a full copy of your medical records, please contact the [facility] Medical Records Department by calling [phone], Friday through Friday between 8 a.m. and 4:30 p.m. HOW TO SAFELY DISPOSE OF PRESCRIPTION MEDICATIONS Please use one of the following methods to safely dispose of your unused medications. 1.Use a drug disposal kit: the drug disposal pouch allows you to safely discard your old and unuseddrugs. Ask your nurse to give you one when you are discharged.2.Visit a local take-back location: Many local pharmacies and police departments have programs that collect old and unwanted prescriptiondrugs. Call your local pharmacy or go to http://eCareDiary.OnLive/6H1Zd3o to find one close to you.3.Make use of household items: Use cat litter or old coffee grounds to dispose medications if other options arenot available. Mix your drugs with these household products, seal them in an airtight container andthrow it into the garbage. Call [facility]: [phone] to be sure your drugs can be disposed of in this way. Some medicines may require a different approach.4.Never flush your medications down the toilet. IF YOU HAVE BEEN PRESCRIBED AN OPIOID FOR PAIN If you have been prescribed an opioid (such as hydrocodone, oxycodone or morphine), it is critical to understand the possible side effects and risks of opioid pain medications. Even when taken as directed, opioids can have several side effects including: Tolerance, meaning you might need to take more of a medication for the same pain relief. Nausea, vomiting and/or constipation. Sleepiness, dizziness, dry mouth, confusion, depression or itching. Physical dependence, meaning you have withdrawal symptoms when a medication is stopped, can develop within a few days. KNOW YOUR RESPONSIBILITIES It is important to know exactly how much and how often to take the opioid pain medications you are prescribed. Never take opioids in higher amounts or more often than prescribed. Do not combine opioids with alcohol or other drugs that cause drowsiness, such as benzodiazepines, also known as benzos, including diazepam and alprazolam, muscle relaxants or sleep aids. Never sell or share prescription opioids. This is illegal. Store opioids in a secure place and out of reach of others (including children, family, friends and visitors). The last page of this document has been signed and retained as a CHART COPY. Signatures Patient Education Materials Gastroparesis Gastritis, Adult, Gyxl-uz-Vrgj Nausea and Vomiting, Adult, Yene-wi-Gwho Moderate Conscious Sedation, Adult, Care After 9 - AO Minor Esophagogastroduodenoscopy (12/31)(CUSTOM) Medication Leaflets Reglan My discharge plan and instructions have been reviewed and explained to me and IDELMAR REBECCA understand my current condition and have read and understand these discharge instructions. I have received a written copy of the plan/instructions. If I have questions, I am aware that I should contact my doctor. Patient/Healthcare Manager Signature: Date/Time: Relationship to Patient: Witness Name/Signature: Date/Time: [facility]06-10-2024 Anesthesiology Consult note Patient: SANTIAGO JACOBSEN Age: 24 years Sex: Female : 2000 Associated Diagnoses: None Author: SUE ZARCO Assessment Postanesthesia assessment Vitals: Vital signs from flowsheet : Vital Signs 03/29/2024 9:10 EDT Heart Rate Monitored 129 bpm bpm Respiratory Rate - Anes 17 br/min br/min Systolic Blood Pressure Non-Invasive 149 mmHg mmHg Diastolic Blood Pressure Non-Invasive 101 mmHg mmHg 03/29/2024 7:47 EDT Temperature Temporal Artery 36.6 DegC Peripheral Pulse Rate 114 bpm HI Respiratory Rate 18 br/min Systolic Blood Pressure Non-Invasive 146 mmHg HI Diastolic Blood Pressure Non-Invasive 89 mmHg . Mental status: alert & oriented x 4. Respiratory function: lungs are clear to auscultation. Respiratory support: none. CV function: Normal rate. Cardiovascular support: none. Pain. Nausea status: see nursing documentation of medications. Postoperative hydration status: within normal limits. Digitally Signed by SUE ZARCO on 03/29/2024 09:21 AM [facility]06-10-2024 Note Date of Service March 29, 2024 Procedure Name EGD Consent Taken before procedure Indication Nausea and vomiting Location [facility] Pre-Procedure Exam Nausea and vomiting Procedural Sedation Anesthesia provided a MAC Technique Patient was brought to the endoscopy suite and placed left shoulder down. The endoscope was passed direct visualization down to the esophagus. Z-line was at 38 cm from the incisors. The stomach was easily insufflated and there was retained food in the stomach. The bulb of the duodenum and sweep of the duodenum were normal. The scope was retroflexed in the stomach and there were no abnormalities of the cardia except for retained food. Full examination of the stomach showed no evidence of peptic ulcer disease. Stomach was decompressed the endoscope was withdrawn there were no mucosal abnormalities of the esophagus. Patient tolerated the procedure well. Post-Procedure Exam Containing food in the stomach Findings Gastritis retained food in the stomach Complications None observed Assessment/Plan Orders: Lactated Ringers Infusion 1,000 mL(LR 1,000 mL), 1000 mL, Intravenous Bedrest, 03/29/24 9:17:00 EDT, Strict, continuous, Constant order, Lying on side until alert or as ordered Bedrest, 03/29/24 9:17:00 EDT, Strict, continuous, Constant order, Lying on side until alert or as ordered Call Parameters, 03/29/24 9:17:00 EDT, Notify for vomiting, severe pain, signs of bleeding, severe abdominal pain, distention or rigidity, Constant order Communication Order (scheduled), 03/29/24 7:42:00 EDT, Once, 03/29/24 7:42:00 EDT, Pathology TissueRequest Communication Order (scheduled), 03/29/24 7:42:00 EDT, Once, 03/29/24 7:42:00 EDT, Urine Test or waiver for women of child bearing age Communication Order (scheduled), 03/29/24 7:42:00 EDT, Once, 03/29/24 7:42:00 EDT, Fasting Blood Sugar priot to procedure of patient is diabetic Diet Order, 03/29/24 9:17:00 EDT, Start Meal: Next meal, Clear Liquid Diet, Post exam or after gag reflex returns if EGD, Constant Order, : No, per patient, : No Discharge, 03/29/24 7:42:00 EDT, Discharged to: Home, when able to ambulate and after being seen byphysician Discharge Activity, NO activity restrictions, 03/29/24 9:17:00 EDT Discharge Diet, Follow the post-operative/post-procedure diet instructions provided by your physician's office., 03/29/24 9:17:00 EDT Discharge Wound Care, Follow the post-operative/post-procedure wound care instructions provided by your physician's office., 03/29/24 9:17:00 EDT Post Procedure Assessment, 03/29/24 9:17:00 EDT, Stop Date 03/29/24 9:17:00 EDT, [facility] in [facility] until Sonja Score of 12 or Preprocedure Sign Consent, 03/29/24 7:42:00 EDT, Once, For EGD Vital Signs, 03/29/24 9:17:00 EDT, q15min, 1 hour(s), 03/29/24 10:15:00 EDT Vital Signs, 03/29/24 9:17:00 EDT, q30min, 1 hour(s), 03/29/24 10:00:00 EDT Vital Signs PRN, 03/29/24 9:17:00 EDT, PRN order Follow Up/Recommendation Low-fat diet try the patient on metoclopramide. Digitally Signed by LAAZRO DELGADO MD on 03/29/2024 09:21 AM [facility]06-10-2024 Note [place] ADMISSION HISTORY AND PHYSICIAL CHIEF COMPLAINT: HISTORY OF PRESENT ILLNESS: REVIEW OF SYSTEMS: ACTIVE PROBLEMS: (8) Anxiety ([id number]) Diarrhea (201632606) DM (diabetes mellitus) (012245777) Gastric ulcer (0735001219) Gastroparesis (780854181) GERD (gastroesophageal reflux disease) (895563601) HTN (hypertension) (7277911876) Pancreatic insufficiency (09719869) MEDICATIONS: Active Inpt Meds: None Active PRN Meds: None One Time Meds: None Active IV Meds: Lactated Ringers Infusion 1,000 mL (LR 1,000 mL) Start: 03/29/24 7:42:00 EDT, Rate: 50 mL/hr, 03/29/24 7:42:00 EDT ALLERGIES: (1) NKA FAMILY HISTORY: SOCIAL HISTORY: PHYSICAL EXAM: VITALS: [id number]dZv(kg) 03/29 07:4736.6--[id number]/10 75.0 24 Hr Tmax: 36.6 at 03/29 07:47 36 Hr Tmax: 36.6 at 03/29 07:47 Vital Signs are the last 5 in the past 48 hours. Weights display the last 5 within 7 days. Initial Wt: 03/29 75.0 kg 165 lb Current Wt: 03/29 75.0 kg 165 lb GENERAL: HEENT: CARDIOVASCULAR: RESPIRATORY: ABDOMEN: EXREMETIES: NEUROLOGICAL: PSYCHIATRIC: LABS: 36hr Labs 03/29 0801 TestSee Flowsheet testSee Flowsheet DIAGNOSTICS: IMPRESSION: PLAN: History and Physical Update I have examined the patient; reviewed the H&P and there are no changes to the H&P unless noted below. Digitally Signed by LAZARO DELGADO MD on 03/29/2024 09:08 AM [facility]06-10-2024 Note [place] ADMISSION HISTORY AND PHYSICIAL CHIEF COMPLAINT: HISTORY OF PRESENT ILLNESS: REVIEW OF SYSTEMS: ACTIVE PROBLEMS: (8) Anxiety (99932852) Diarrhea (604809283) DM (diabetes mellitus) (270771829) Gastric ulcer (5402455721) Gastroparesis (673097467) GERD (gastroesophageal reflux disease) (955134721) HTN (hypertension) (5756687176) Pancreatic insufficiency (40442312) MEDICATIONS: Active Inpt Meds: None Active PRN Meds: None One Time Meds: None Active IV Meds: Lactated Ringers Infusion 1,000 mL (LR 1,000 mL) Start: 03/29/24 7:42:00 EDT, Rate: 50 mL/hr, 03/29/24 7:42:00 EDT ALLERGIES: (1) NKA FAMILY HISTORY: SOCIAL HISTORY: PHYSICAL EXAM: VITALS: [id number]tsmGe(kg) 03/29 07:4736.6--[id number]/10 75.0 24 Hr Tmax: 36.6 at 03/29 07:47 36 Hr Tmax: 36.6 at 03/29 07:47 Vital Signs are the last 5 in the past 48 hours. Weights display the last 5 within 7 days. Initial Wt: 03/29 75.0 kg 165 lb Current Wt: 03/29 75.0 kg 165 lb GENERAL: HEENT: CARDIOVASCULAR: RESPIRATORY: ABDOMEN: EXREMETIES: NEUROLOGICAL: PSYCHIATRIC: LABS: 36hr Labs 03/29 0801 TestSee Flowsheet testSee Flowsheet DIAGNOSTICS: IMPRESSION: PLAN: History and Physical Update I have examined the patient; reviewed the H&P and there are no changes to the H&P unless noted below. Digitally Signed by LAZARO DELGADO MD on 03/29/2024 09:07 AM [facility]06-10-2024 Anesthesiology Consult note Patient: SANTIAGO JACOBSEN Age: 24 years Sex: Female : 2000 Associated Diagnoses: None Author: SUE ZARCO APRN-PLANNING OFFICIAL Preoperative Information Time of last food or liquid consumption: 03/28/2024 23:59:00 Anesthesia history Patient's history: negative. Family's history: negative. Review of Systems Ear/Nose/Mouth/Throat: Negative except as documented in history of present illness. Respiratory: Negative except as documented in history of present illness. Cardiovascular: Negative except as documented in history of present illness. Gastrointestinal: Negative except as documented in history of present illness. Genitourinary: Negative except as documented in history of present illness. Endocrine: Negative except as documented in history of present illness. Musculoskeletal: Negative except as documented in history of present illness. Integumentary: Negative except as documented in history of present illness. Neurologic: Negative except as documented in history of present illness. Health Status Allergies: Allergic Reactions (Selected) NKA, Allergies (1) ActiveSeverityReaction NKANone Documented Current medications: (Selected) Inpatient Medications Ordered LR 1,000 mL: 50 mL/hr, Intravenous Documented Medications Documented HumaLOG 100 units/mL injectable solution VIAL: 1 unit(s), Subcutaneous, 0 Refill(s) Humulin R (CONCENTRATED) 500 units/mL 20 mL VIAL*: unit(s), Subcutaneous-INT Zenpep 20,000 units-63,000 units-84,000 units oral delayed release capsule: 1 cap(s), Oral, TID, 0 Refill(s) pantoprazole 40 mg oral enteric coated tablet: 40 mg, 1 tab(s), Oral, qDay, 0 Refill(s) ramipril 1.25 mg oral capsule: 1.25 mg, 1 cap(s), Oral, qDay, 0 Refill(s), Medications (1) Active Scheduled: (0) Continuous: (1) Lactated Ringers 1,000 mL 1,000 mL, Intravenous, 50 mL/hr PRN: (0) Problem list: No problem items selected or recorded., Active Problems (8) Anxiety Diarrhea DM (diabetes mellitus) Gastric ulcer Gastroparesis GERD (gastroesophageal reflux disease) HTN (hypertension) Pancreatic insufficiency Histories Past Medical History: No active or resolved past medical history items have been selected or recorded. Family History: No family history items have been selected or recorded. Procedure history: Colonoscopy ([id number]). Social History: Social & Psychosocial Habits Alcohol 03/29/2024 Use: Never Substance Abuse 03/29/2024 Use: Never Tobacco 03/29/2024 Tobacco Use: Never (less than 100 in l Home/Environment 03/29/2024 Living situation: Home/Independent Nutrition/Health 03/29/2024 Type of diet: Calorie restricted, Diabetic, Regular Physical Examination Vital Signs 03/29/2024 7:47 EDT Temperature Temporal Artery 36.6 DegC Peripheral Pulse Rate 114 bpm HI Respiratory Rate 18 br/min Systolic Blood Pressure Non-Invasive 146 mmHg HI Diastolic Blood Pressure Non-Invasive 89 mmHg Vital Signs (last 24 hrs) Last Charted Temp Chysnzsp92.6 DegC (MAR 29 07:47) SBPH 146 mmHg (MAR 29 07:47) DBP89 mmHg (MAR 29 07:47) Measurements from flowsheet : Measurements 03/29/2024 7:47 EDT Admission Weight 75 kg Weight Lbs 165 lb Pain assessment: Pain Assessment 03/29/2024 7:47 EDT Primary Pain Intensity 0 Pain Scale Type 0-10 Pain scale . General: Alert and oriented. Airway: Normal neck range of motion. Mallampati classification: II (soft palate, fauces, uvula visible). Head: Normocephalic. Dentition Evaluation: Intact, Own teeth. Neck: Full range of motion. Respiratory: Lungs are clear to auscultation. Cardiovascular: Normal rate. Heart Sounds: Normal. Gastrointestinal: Soft. Musculoskeletal Normal range of motion. Integumentary: Intact, Warm, Dry. Neurologic: Alert, Oriented. Review / Management Results review: No qualifying data available , Lab results 03/29/2024 8:01 EDT Test Urine Negative test (u) int test (u) int QC PRGUN Negative QC PRGUP Positive 03/29/2024 8:00 EDT Antecubital Right 03/29/2024 22 gauge Peripheral IV Activity: Insert new site Peripheral IV Dressing Condition: Clean, Dry, Intact Peripheral IV Dressing Activity: Transparent dressing Peripheral IV Line Status/Patency: Flushes easily, Continuous infusion Peripheral IV Site Condition: No complications Peripheral IV Number of Attempts: 1 Lactated Ringers Injection Begin Bag 1,000 mL mL 03/29/2024 7:50 EDT Designated Person #1 We May Share PHI Designated Person #1 We May Share [facility] Designated Person #1 Relationship Mother Status No, per patient Sensory Deficits None Infectious Disease Symptoms Patient states no symptoms Infectious Disease Recent Exposure No Alcohol and Drug Use No Employee of Institutional Living No Health Care Employee No History of Exposure to TB No History of Positive Chest X-Ray for TB No History of Positive TB Skin Test No Homeless No Known Immunosuppression No Recent Immigrant No Resident of Institutional Living No Bloody Sputum No Fatigue No Fever No Loss of Appetite No Night Sweats No Persistent Cough > 3 Weeks No Weight Loss No Barriers to Learning None evident Teaching Method Explanation, Printed materials Preferred Spoken Language Niuean Preferred Written Language Niuean Information Given by Patient Patient's Current Physicians Dr Skylar Fong Discharge To, Anticipated Home independently Prev Test Positive/Diagnosis w/COVID-19 Yes Previous COVID-19 Positive Date 2021 Current Quarantine/Isolated any Illness No Any Contact with Sick Animals/Birds No Traveled Anywhere in Last 30 Days No No Personal Devices, Patient Valuables None Admission Note-Nursing Procedure/Therapy Intake 03/29/2024 7:47 EDT Admission Weight 75 kg Weight Lbs 165 lb Temperature Temporal Artery 36.6 DegC Peripheral Pulse Rate 114 bpm HI Respiratory Rate 18 br/min Systolic Blood Pressure Non-Invasive 146 mmHg HI Diastolic Blood Pressure Non-Invasive 89 mmHg Primary Pain Intensity 0 Pain Scale Type 0-10 Pain scale Respirations Unlabored Respiratory Pattern Regular Oxygen Therapy Room air Oxygen Saturation 100 % Abdomen Description Non-distended, Symmetric Abdomen Palpation Non-Tender Bowel Sounds All Quadrants Present Urinary Elimination Voiding, no difficulties Skin Temperature Warm Skin Description Normal for ethnicity Skin Integrity Intact Mucous Membrane Color [place] Skin Moisture General Dry IV Present Present Neurological Symptoms Patient denies Extremity Movement Equal Characteristics of Speech Clear Level of Consciousness Alert MARVIN Yes Strength All Extremities Strong Tone All Extremities Normal Sensation All Extremities Intact Affect/Behavior Appropriate, Calm, Cooperative Orientation Oriented x 4 Allergies Yes Anesthesia Extension Set Applied Yes Route Manager On Yes Consent Form Signed Yes Patient Dressed In Hospital gown, No undergarments Obstructive Sleep Apnea Assess Completed Yes Sonja Motor (2) Moves 4 extremities voluntarily or on command Sonja Respirations (2) Spontaneous respiration without support, RR > 10 Sonja Blood Pressure (2) BP 20% above or below preanesthetic level Sonja Pulse (2) Pulse 20% above or below preanesthetic level Sonja Oxygen Saturation (2) 94% or more Sonja Level of Consciousness (2) Fully awake Sonja III Score 12 Belongings At Bedside Cell phone, Pants, Shirt, Shoes, Socks, Undergarments Activity Status ADL Awake NPO Status Maintained Standard Safety ID band on, Call device within reach, Bed in low position, Wheels locked, Upper/Half-Length side-rails up, Visitor at bedside, Safety level maintained Patient ID Band on and Verified Yes Site Verified by Patient/Family Yes Last Fluid Intake 03/28/2024 22:30 Last Food Intake 03/28/2024 22:30 . Assessment and Plan [place] [employer] Anesthesiologists (ASA) physical status classification: Class II. Anesthetic Preoperative Plan Premedication: intravenous. Anesthetic technique: MAC. Induction: intravenously. Maintenance airway: Mask. Risks discussed: nausea, vomiting, headache, sore throat, dental injury, hypotension, allergic reaction, serious complications. Informed consent: signed by patient. Digitally Signed by SUE ZARCO on 03/29/2024 08:54 AM [facility]11-28-2023 Note ORIGINAL EXAMINATION: GASTRIC EMPTYING STUDY09/16/2023 3:24 pm TECHNIQUE: 2.0 mCi of Tc 99m sulfur colloid mixed with 4 oz egg white, 2 pieces toast, and jelly was ingested with water. COMPARISON: None HISTORY: ORDERING SYSTEM PROVIDED HISTORY: Weight loss FINDINGS: The gastric retention at 0.5 hour is 92 % (normal value of retention at 0.5 hour is more than 70%). The gastric retention at 1 hour is 78 % (normal value of retention at 1 hour is more than 30% and less than 90%). The gastric retention at 2 hours is 56 % (normal value of retention at 2 hours is less than 60%). The gastric retention at 3 hours is 32 % (normal value of retention at 3 hours is less than 30%). The gastric retention at 4 hours is 32 %, which is normal (normal value of retention at 4 hours is less than 10%). IMPRESSION: Moderately delayed gastric emptying. I have personally reviewed the images of this examination and agree with the resident's findings and interpretations. Interpreted by: Melanie Berman MD Preliminary Report By: Yovany Vergara Electronically signed By Melanie Berman MD Dictated Date: 09/16/2023 3:25:14 PM Prelim Date: 09/16/2023 4:25:53 PM Sign Date: 09/16/2023 4:25:53 PM Ordering Provider: [facility]08-27-2022 [facility]08-27-2022 [facility]08-14-2022 [facility] 06-02-2022 [facility]07-08-2022 [facility]07-07-2022 History of Past illness Narrative* Problem Noted Date Resolved Date Upper abdominal pain 04/25/2022 04/26/2022 Type 1 diabetes mellitus without complication 04/26/2022 Lactic acidosis 04/25/2022 04/26/2022 Left otitis media 04/25/2022 04/26/2022 Malnutrition of mild degree 04/25/2022 07/0 05/2022 Nausea and vomiting 04/24/2022 04/26/2022 documented as of this encounter (statuses as of 05/02/2022) [facility] No data available for this section [facility] Evaluation note* Diagnosis Onset Date Resolution Status DKA (diabetic ketoacidosis) acute Type 1 diabetes, uncontrolled, with gastroparesis acute [facility] Work Phone: Evaluation note* Diagnosis Onset Date Resolution Status Type 1 diabetes, uncontrolled, with gastroparesis acute DKA (diabetic ketoacidosis) resolved DKA (diabetic ketoacidoses) acute Type 1 diabetes, uncontrolled, with gastroparesis acute [facility] Work Phone: Evaluation noteNo assessment information available [facility] Work Phone: Evaluation note* Diagnosis Mild persistent asthma without complication- Primary Unspecified asthma Post-COVID chronic cough documented in this encounter [facility] note* Diagnosis Mild persistent asthma without complication- Primary Unspecified asthma documented in this encounter [facility] note* Diagnosis Viral URI with cough- Primary Acute upper respiratory infections of unspecified site Viral conjunctivitis Unspecified diseases of conjunctiva due to viruses documented in this encounter [facility] note* Diagnosis Acute conjunctivitis of right eye, unspecified acute conjunctivitis type- Primary Periorbital cellulitis of right eye documented in this encounter [facility] note* Diagnosis Broken teeth- Primary Open wound of tooth (broken) (fractured) (due to trauma), without mention of complication Dental caries Unspecified dental caries Dental infection Type 1 diabetes mellitus with hyperglycemia (HCC) documented in this encounter [facility] Discharge instructions No data available for this section [facility] Progress note No data available for this section [facility] Reason for referral (narrative)* Outpatient Procedure (Routine) - New Request Specialty Diagnoses / Procedures Referred By Fanny t Referred To Contact [facility] Diagnoses Cough, unspecified type Procedures NITRIC OXIDE, EXHALED NITRIC OXIDE GAS DETERMINATION Brenda Gillespie MD [address] [facility] [facility] [place] [address] [place] [address] [place] [id number] Referral ID Status Reason Start Date Expiration Date Visits Requested Visits Authorized [id number] New Request Auto-Generat ed Referral 4 09/08/2025 1 1 [facility] for referral (narrative)No reason for referral information [facility] Work Phone: Summary Purpose Family History No Family History Records Found Relationship Condition Age at Onset Recorded Date/T duong Not Specified Diabetes mellitus Unknown Cardiac disease Unknown Hypertension Unknown Cerebrovascular accident (CVA) Unknown Advance Directives No Advanced Directives Records FoundDocuments on File Type Date Recorded Patient Healthcare Manager Expl anation Advance Directives and Living Will Power of Increment Manager Latest Code Status on File Code Status Date Activated Date Inactivated Comments Full Code 03/25/2019 2:40 PM 03/28/2019 3:28 PM Full Code 03/15/2019 4:07 PM 03/17/2019 5:35 PM Full Code 11/17/2018 12:40 AM 11/20/2018 4:26 PM Advance Directive Response Recorded Date/ Time Living Will No February 05, 2022 12:31pm Power of Increment Manager Yes February 05 12:31pm Advance Directive Response Recorded Date/ Time Name of Medical Power of Increment Manager Katherin Jacobsen February 05, 2022 12:31pm Living Will No March 09, 2022 2 :32pm Power of Increment Manager No March 09, 2022 2:32pm Documents on File Type Date Recorded Patient Healthcare Manager Expl anation Advance Directive(s) 04/24/2022 4:35 PM Advance Directive(s) 04/02/2022 11:47 AM Advance Directive Response Recorded Date/ Time Living Will No March 09, 2022 2 :32pm Power of Increment Manager No March 09, 2022 2:32pm Advance Directive Response Recorded Date/ Time Living Will No March 09, 2022 1 :32pm Power of Increment Manager No March 09, 2022 1:32pm Date Activated Date Inactivated Comments 06/14/2022 10:17 PM 06/15/2022 11:15 PM Question Answer Comments Full Code Order Discussed With: Patient Date Activated Date Inactivated Comments 06/14/2022 10:17 PM 06/15/2022 11:15 PM Question Answer Comments Full Code Order Discussed With: Patient Chief Complaint and Reason for Visit Chief Complaint chest pain DKA DKA DKA DKA DKA Reason for Visit DKA (diabetic ketoac idosis) Type 1 diabetes, uncontrolled, with gastroparesis Chief Complaint DKA DKA DKA DKA DKA DKA) F/up DKA Reason for Visit Type 1 diabetes, unc ontrolled, with gastroparesis DKA (diabetic ketoacidosis) DKA (diabetic ketoacidoses) Type 1 diabetes, uncontrolled, with gastroparesis Chief Complaint DKA DKA DKA DKA DKA DKA) F/up DKA DKA Reason for Visit Type 1 diabetes, unc ontrolled, with gastroparesis DKA (diabetic ketoacidosis) DKA (diabetic ketoacidoses) Type 1 diabetes, uncontrolled, with gastroparesis Chief Complaint Diarrhea Chief Complaint Diarrhea STOOL SAMPLE ONLY Chief Complaint Admit Date Cough November 08, 2024 1 0:42am Chief Complaint Admit Date Cough November 08, 2024 1 0:42am DIARRHEA VOMITING ABDOMINAL PAIN February 8:04am Chief Complaint Admit Date DIARRHEA VOMITING ABDOMINAL PAIN February 8:04am N/V/ABD PAIN March 21, 2025 8:52a m Reason for Visit Admit Date Abdominal pain March 07, 2025 8:04a m Diarrhea March 07, 2025 8:04a m Gastroparesis March 07, 2025 8:04a m Type 1 diabetes mellitus March 07, 2025 8:04am Chief Complaint Admit Date DIARRHEA VOMITING ABDOMINAL PAIN February 8:04am N/V/ABD PAIN March 21, 2025 8:52a m N/V/abd pain April 11, 2025 8:52 am Chief Complaint Admit Date DIARRHEA VOMITING ABDOMINAL PAIN February 8:04am N/V/ABD PAIN March 21, 2025 8:52a m N/V/abd pain April 11, 2025 8:52 am hepatomegaly on US, 24.7cm April 15 5:43pm Chief Complaint Admit Date DIARRHEA VOMITING ABDOMINAL PAIN February 8:04am N/V/ABD PAIN March 21, 2025 8:52a m N/V/abd pain April 11, 2025 8:52 am hepatomegaly on US, 24.7cm April 15 5:43pm GB sludge seen by US April 25, 2025 8:33 am Chief Complaint Admit Date DIARRHEA VOMITING ABDOMINAL PAIN February 8:04am N/V/ABD PAIN March 21, 2025 8:52a m N/V/abd pain April 11, 2025 8:52 am hepatomegaly on US, 24.7cm April 15 5:43pm GB sludge seen by US April 25, 2025 8:33 am 2 M FU May 09, 2025 2:22 pm Chief Complaint Admit Date DIARRHEA VOMITING ABDOMINAL PAIN February 8:04am N/V/ABD PAIN March 21, 2025 8:52a m N/V/abd pain April 11, 2025 8:52 am hepatomegaly on US, 24.7cm April 15 5:43pm GB sludge seen by US April 25, 2025 8:33 am 2 M FU May 09, 2025 2:22 pm INT LAB ORDERS May 09, 2025 3:17 pm Reason for Visit Admit Date Abdominal pain March 07, 2025 8:04a m Diarrhea March 07, 2025 8:04a m Gastroparesis March 07, 2025 8:04a m Type 1 diabetes mellitus March 07, 2025 8:04am Gallbladder sludge May 09, 2025 2:22 pm Hepatomegaly May 09, 2025 2:22 pm 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 DATE CREATED AUTHOR AUTHOR'S ORGANIZ ATION 12/10/2019 [facility] DATE CREATED AUTHOR AUTHOR'S ORGANIZ ATION 12/28/2022 [facility] DATE CREATED AUTHOR AUTHOR'S ORGANIZ ATION 04/15/2024 [facility] ([place]) DATE CREATED AUTHOR AUTHOR'S ORGANIZ ATION 10/31/2024 [facility] DATE CREATED AUTHOR AUTHOR'S ORGANIZ ATION 03/04/2025 [facility] DATE CREATED AUTHOR AUTHOR'S ORGANIZ ATION 03/28/2025 [facility] DATE CREATED AUTHOR AUTHOR'S ORGANIZ ATION 05/19/2025 [facility] Goals (unrecognized section and content) Goals may be documented in a n alternate sectionGoals may be documented in an alternate sectionGoals may be documented in an alternate sectionGoals may be documented in an alternate sectionGoals may be documented in an alternate sectionGoals may be documented in an alternate sectionGoals may be documented in an alternate sectionGoals may be documented in an alternate section No data available for this sectionGoals may be documented in an alternate section No data available for this sectionGoals may be documented in an alternate sectionGoals may be documented in an alternate sectionGoals may be documented in an alternate sectionGoals may be documented in an alternate sectionGoals may be documented in an alternate sectionGoals may be documented in an alternate sectionGoals may be documented in an alternate sectionGoals may be documented in an alternate sectionGoals may be documented in an alternate section Source Comments (unrecognize d section and content) In the event this informatio n is protected by the Federal Confidentiality of Alcohol and Drug Abuse Patient Records regulations: The Federal rules restrict any use of the information to criminally investigate or prosecute any alcohol or drug abuse patient.[facility] the event this information is protected by the Federal Confidentiality of Alcohol and Drug Abuse Patient Records regulations: The Federal rules restrict any use of the information to criminally investigate or prosecute any alcohol or drug abuse patient.[facility] the event this information is protected by the Federal Confidentiality of Alcohol and Drug Abuse Patient Records regulations: The Federal rules restrict any use of the information to criminally investigate or prosecute any alcohol or drug abuse patient.[facility] the event this information is protected by the Federal Confidentiality of Alcohol and Drug Abuse Patient Records regulations: The Federal rules restrict any use of the information to criminally investigate or prosecute any alcohol or drug abuse patient.[facility] Reason for Visit (unrecogniz ed section and content) Reason Comments Follow Up Gyant interaction - F/U - attempt made. No answer. Reason Comments New Patient Abnormal PFTs Reason Comments Spirometry Reason Comments Eye Problem Redness, swelling, w atering, SOB, nausea l ear pain x 3 days Reason Comments Eye Problem Reason Comments Dental Problem Pt presents to the [facility] with dental concerns. Pt has noted edema on he left side of her face. Pt states she believes she may have broken a tooth. Care Teams (unrecognized sec tion and content) Restaurant And Bar Manager Relationship Specialty Start Date End Date Rimma Tsai, TAX ACCOUNTING MANAGER.[facility] [address] [place] [address] PCP - General Family Practice 04/02/22 Team Status: Active Member Role Status Dates Dr. Petros Spicer MD Family Provider Active Dr. Skylar Fong MD Primary Care Provider Active Team Status: Inactive Member Role Status Dates Dr. Skylar Fong MD Primary Care Provider, Attending Nancy wagoner Active Team Status: Inactive Member Role Status Dates Dr. Skylar Fong MD Primary Care Provide r, Attending Provider, Referring Provider Active Team Status: Inactive Member Role Status Dates Dr. Skylar Fong MD Primary Care Provider Active Dr. Lazaro Delgado MD Attending Provider, Referring Provider Active Restaurant And Bar Manager Relationship Specialty Start Date End Date Skylar Fong MD [address] [place] [address] PCP - General Family Medicine 05/21/24 Restaurant And Bar Manager Relationship Specialty Start Date End Date Skylar Fong MD [address] [facility] [place] [address] PCP - General Family Medicine 05/21/24 Restaurant And Bar Manager Relationship Specialty Start Date End Date Skylar Fong MD [address] [facility] [place] [address] PCP - General Family Medicine 05/21/24 Restaurant And Bar Manager Relationship Specialty Start Date End Date Skylar Fong [address] [facility] [address] [place] [address] PCP - General Family Medicine 10/25/24 Team Status: Inactive Member Role Status Dates Dr. Skylar Fong MD Primary Care Provider Active Start: November 08, 2024 End: November 08, 2024 Dr. Skylar Fong MD Attending Provider Active St art: November 08, 2024 End: November 08, 2024 Dr. Skylar Fong MD Referring Provider Active St art: November 08, 2024 End: November 08, 2024 Team Status: Inactive Member Role Status Dates Dr. Skylar Fong MD Primary Care Provider Active Start: December 20, 2024 End: December 20, 2024 Dr. Skylar Fong MD Attending Provider Active St art: December 20, 2024 End: December 20, 2024 Dr. Skylar Fong MD Referring Provider Active St art: December 20, 2024 End: December 20, 2024 Restaurant And Bar Manager Relationship Specialty Start Date End Date Skylar Fong [address] [place] [id number] PCP - General Family Medicine 10/25/24 Team Status: Inactive Member Role Status Dates Dr. Skylar Fong MD Primary Care Provider Active Start: March 07, 2025 End: March 07, 2025 Dr. Skylar Fong MD Referring Provider Active St art: March 07, 2025 End: March 07, 2025 Dorothy Boykin NP-C Attending Provider Active S tart: March 07, 2025 End: March 07, 2025 Team Status: Active Member Role Status Dates Dr. Skylar Fong MD Primary Care Provider Active Team Status: Inactive Member Role Status Dates Dr. Skylar Fong MD Primary Care Provider Active Start: March 21, 2025 End: March 21, 2025 Dorothy Boykin MASTER COOK-C Attending Provider Active S tart: March 21, 2025 End: March 21, 2025 Dorothy Boykin MASTER COOK-C Referring Provider Active S tart: March 21, 2025 End: March 21, 2025 Team Status: Inactive Member Role Status Dates Dr. Skylar Fong MD Primary Care Provider Active Start: April 11, 2025 End: April 11, 2025 Dorothy Boykin NP-C Attending Provider Active S tart: April 11, 2025 End: April 11, 2025 Dorothy Boykin MASTER COOK-C Referring Provider Active S tart: April 11, 2025 End: April 11, 2025 Team Status: Active Member Role/Relationship Status Dates Dr. Skylar Fong MD Primary Care Provider Active Team Status: Inactive Member Role/Relationship Status Dates Dr. Skylar Fong MD Primary Care Provider Active Start: December 20, 2024 End: December 20, 2024 Dr. Skylar Fong MD Attending Provider Active St art: December 20, 2024 End: December 20, 2024 Dr. Skylar Fong MD Referring Provider Active St art: December 20, 2024 End: December 20, 2024 Team Status: Inactive Member Role/Relationship Status Dates Dr. Skylar Fong MD Primary Care Provider Active Start: March 07, 2025 End: March 07, 2025 Dr. Skylar Fong MD Referring Provider Active St art: March 07, 2025 End: March 07, 2025 Dorothy Boykin MASTER COOK-C Attending Provider Active S tart: March 07, 2025 End: March 07, 2025 Team Status: Inactive Member Role/Relationship Status Dates Dr. Skylar Fong MD Primary Care Provider Active Start: March 21, 2025 End: March 21, 2025 Dorothy Boykin MASTER COOK-C Attending Provider Active S tart: March 21, 2025 End: March 21, 2025 Dorothy Boykin MASTER COOK-C Referring Provider Active S tart: March 21, 2025 End: March 21, 2025 Team Status: Inactive Member Role/Relationship Status Dates Dr. Skylar Fong MD Primary Care Provider Active Start: April 11, 2025 End: April 11, 2025 Dorothy Boykin MASTER COOK-C Attending Provider Active S tart: April 11, 2025 End: April 11, 2025 Dorothy Boykin MASTER COOK-C Referring Provider Active S tart: April 11, 2025 End: April 11, 2025 Team Status: Inactive Member Role/Relationship Status Dates Dr. Skylar Fong MD Primary Care Provider Active Start: April 15, 2025 End: April 15, 2025 Dorothy Boykin MASTER COOK-C Attending Provider Active S tart: April 15, 2025 End: April 15, 2025 Dorothy Boykin MASTER COOK-C Referring Provider Active S tart: April 15, 2025 End: April 15, 2025 Team Status: Inactive Member Role/Relationship Status Dates Dr. Skylar Fong MD Primary Care Provider Active Start: March 07, 2025 End: March 07, 2025 Dr. Skylar Fong MD Referring Provider Active St art: March 07, 2025 End: March 07, 2025 Dorothy Boykin MASTER COOK-C Attending Provider Active S tart: March 07, 2025 End: March 07, 2025 Team Status: Inactive Member Role/Relationship Status Dates Dr. Skylar Fong MD Primary Care Provider Active Start: March 21, 2025 End: March 21, 2025 Dorothy Boykin MASTER COOK-C Attending Provider Active S tart: March 21, 2025 End: March 21, 2025 Dorothy Boykin MASTER COOK-C Referring Provider Active S tart: March 21, 2025 End: March 21, 2025 Team Status: Inactive Member Role/Relationship Status Dates Dr. Skylar Fong MD Primary Care Provider Active Start: April 11, 2025 End: April 11, 2025 Dorothyher Boykin , MASTER COOK-C Attending Provider Active S tart: April 11, 2025 End: April 11, 2025 Dorothy Ashutosh , MASTER COOK-C Referring Provider Active S tart: April 11, 2025 End: April 11, 2025 Team Status: Inactive Member Role/Relationship Status Dates Dr. Skylar Fong MD Primary Care Provider Active Start: April 15, 2025 End: April 15, 2025 Dorothyher Boykin , MASTER COOK-C Attending Provider Active S tart: April 15, 2025 End: April 15, 2025 Dorothyher Boykin , MASTER COOK-C Referring Provider Active S tart: April 15, 2025 End: April 15, 2025 Team Status: Inactive Member Role/Relationship Status Dates Dr. Skylar Fong MD Primary Care Provider Active Start: April 25, 2025 End: April 25, 2025 Dorothyher Boykin , MASTER COOK-C Attending Provider Active S tart: April 25, 2025 End: April 25, 2025 Dorothyher Boykin , MASTER COOK-C Referring Provider Active S tart: April 25, 2025 End: April 25, 2025 Team Status: Inactive Member Role/Relationship Status Dates Dr. Skylar Fong MD Primary Care Provider Active Start: May 09, 2025 End: May 09, 2025 Dr. Skylar Fong MD Referring Provider Active St art: May 09, 2025 End: May 09, 2025 Dorothyher Boykin , MASTER COOK-C Attending Provider Active S tart: May 09, 2025 End: May 09, 2025 Team Status: Inactive Member Role/Relationship Status Dates Dr. Skylar Fong MD Primary Care Provider Active Start: April 19, 2025 Dr. Misti Metcalf MD Attending Provider Active Start: April 19, 2025 Team Status: Inactive Member Role/Relationship Status Dates Dr. Skylar Fong MD Primary Care Provider Active Start: April 25, 2025 End: April 25, 2025 Dorothyher Boykin , MASTER COOK-C Attending Provider Active S tart: April 25, 2025 End: April 25, 2025 Dorothy Ashutosh , MASTER COOK-C Referring Provider Active S tart: April 25, 2025 End: April 25, 2025 Team Status: Inactive Member Role/Relationship Status Dates Dr. Skylar Fong MD Primary Care Provider Active Start: May 09, 2025 End: May 09, 2025 Dr. Skylar Fong MD Referring Provider Active St art: May 09, 2025 End: May 09, 2025 RIO Leahy Attending Provider Active S tart: May 09, 2025 End: May 09, 2025 Team Status: Inactive Member Role/Relationship Status Dates Dr. Skylar Fong MD Primary Care Provider Active Start: May 09, 2025 End: May 09, 2025 RIO Leahy Attending Provider Active S tart: May 09, 2025 End: May 09, 2025 RIO Leahy Referring Provider Active S tart: May 09, 2025 End: May 09, 2025 Team Status: Inactive Member Role/Relationship Status Dates Dr. Skylar Fong MD Primary Care Provider Active Start: May 16, 2025 End: May 16, 2025 Dr. Kristin Alejandra MD Attending Provider Active Start: May 16, 2025 End: May 16, 2025 RIO Leahy Referring Provider Active S tart: May 16, 2025 End: May 16, 2025 Scheduled Active and Recently Administ ered Medications (unrecognized section and content) Medication Order 10/23/2024 10/24/2024 10/25/2024 tetracaine (Altacaine) 0.5 % ophthalmic solution 2 drop (COMPLETED) 2 drop, Right Eye, Once, On Fri10/25/24 at 1210, For 1 dose 1212 (Given - Provid er: Alyssa Lilly RN) Scheduled Medication Order 02/28/2025 03/01/2025 03/02/2025 amoxicillin-clavulanate (Augmentin) 875-125 MG per tablet 1 tablet (COMPLETED) 1 tablet (875 mg), Oral, Once, On Fri03/02/25 at 2240, For 1 dose, Suspected Indication (Select all that apply): Head and Neck Infection 2240 (Given - Provid er: Fadumo Pascual, TAMARA) ketorolac (Toradol) injection 15 mg (COMPLETED) 15 mg, IntraVENous, Once, On Fri03/02/25 at 1840, For 1 dose 2040 (Given - Provid er: Can Headley, RADHA - Comment: has to establish IV access) ondansetron (Zofran) injection 4 mg (COMPLETED) 4 mg, IntraVENous, Once, On Fri03/02/25 at 1840, For 1 dose 2039 (Given - Provid er: Can Headley, EMT) sodium chloride 0.9 % bolus 1,000 mL 1,000 mL, IntraVENous, at 1,000 mL/hr, Administer over 1 Hours, Once, On Fri03/02/25 at 1840, For 1 dose 2042 (Not Given - Pr ovider: Can Headley, EMT - Reason: Patient/family refused) PRN Medication Order 02/28/2025 03/01/2025 03/02/2025 iopamidol (Isovue-370) 76 % injection 75 mL (COMPLETED) 75 mL, IntraVENous, IMG once PRN, contrast, Starting on Fri03/02/25 at 2136, For 1 dose 2136 (Given - Provid er: Madalyn Gonsalez, RT (R)(CT)) FOR RECORDS PERTAINING TO PATIENTS WHO ARE OR HAVE BEEN ENROLLED IN A CHEMICAL DEPENDENCY/SUBSTANCEABUSE PROGRAM, SOME INFORMATION MAY BE OMITTED. This clinical summary was aggregated from multiple sources. Caution should be exercised in using it in the provision of clinical care. This summary normalizes information from multiple sources, and as a consequence, information in this document may materially change the coding, format and clinical context of patient data. In addition, data may be omitted in some cases. CLINICAL DECISIONS SHOULD BE BASED ON THE PRIMARY CLINICAL RECORDS. [facility]. provides no warranty or guarantee of the accuracy or completeness of information in this document.
== END | disposition home or self-care (01) ==
LOC: OPMRI 07:00
PROVIDERS: PCP Family Medicine
DX: R16.0 Hepatomegaly, not elsewhere classified (principal); K82.8 Other specified diseases of gallbladder
CPT/HCPCS: 74181

== ENCOUNTER → 2025-07-25 | Outpatient (CLI) | payer BC, SELFPAY ==
[2025-07-25 13:16] LABS: CRP 5.94 mg/L (0.0-3.0)
[2025-07-26 13:08] LABS: Anti-Chromatin <0.2 AI (0.0-0.9); Anti-Jo <0.2 AI (0.0-0.9); Anti-dsDNA Ab 1 IU/mL (0-9); SJOGREN'S Anti-SS-A test < 0.2 AI (0.0-0.9); SJOGREN'S Anti-SS-B test < 0.2 AI (0.0-0.9)
[2025-08-09 12:08] LABS: ACCA 41 units (0-90); ALCA 4 units (0-60); Cytoplasmic Ab (C-ANCA) <1:20 titer (Neg:<1:20); Gastrin, Serum 54 pg/mL (0-115); Immunoglobulin A 691 mg/dL (87-352); Immunoglobulin G 1096 mg/dL (586-1602); Immunoglobulin M 98 mg/dL (26-217); Perinuclear Ab (P-ANCA) <1:20 titer (Neg:<1:20)
== END | disposition home or self-care (01) ==
LOC: LAB 12:00
PROVIDERS: PCP Family Medicine; Referring Provider Internal Medicine Gastroenterology; Visit Provider Internal Medicine Gastroenterology
DX: R10.13 Epigastric pain (principal); R10.12 Left upper quadrant pain; K82.8 Other specified diseases of gallbladder; K86.81 Exocrine pancreatic insufficiency
CPT/HCPCS: 36415; 82784; 82785; 82941; 83516; 85652; 86036; 86037; 86140; 86225; 86235; 86255; 86671

== ENCOUNTER 2025-08-11 05:43 | Day surgery (SDC) | payer BC, SELFPAY ==
--- NOTE | 2025-07-04 08:34 | EKG12_ITS ---
Test Reason : PREOP
[2025-07-04 10:38] LABS: Anion Gap 15 (5-15); BUN 10 mg/dL (4-19); BUN/Creat Ratio 16.9 RATIO (10-20); Calcium,Total 9.0 mg/dL (7.6-11.0); Carbon Dioxide 18.4 mmol/L (21.0-32.0); Chloride 108 mmol/L (98-108); Estimated Creatinine Clearance 147.80 ml/min (50-250); Glucose 249 mg/dL (70-99); Potassium 3.9 mmol/L (3.3-5.1)
[2025-08-11] VITALS (15 sets, daily range): BP systolic 112–147; BP diastolic 55–95; PULSE 93–113; RESP 14–20; TEMP 36.1–37.2; O2SAT 92–100; BMI 35.4
[2025-08-11] MEDS: Lactated Ringers 1,000 ML 15 ML IV (06:23)
[2025-08-11] MEDS: INDOCYANINE GREEN 3.75 MG in Syringe 1.5 ML 999 MG IV (06:23)
--- NOTE | 2025-08-11 06:41 | PCM.PRE.AN2 ---
ASA Classification* ASA Classification ASA Classification: 2 Assessment & Plan Anesthesia* Anesthesia Assessment Anesthesia Assessment: Discussed sedation and/or anesthesia options, risks, benefits, and alternatives with patient/parents/legal guardian/POA. Questions invited. The patient/parents/legal guardian/POA seems to understand and agrees to proceed with anesthesia plan. Reviewed the physical assessment, medical history, allergy history and patient home medications list prior to surgery/procedure/anesthetic and documented any changes. Performed airway and anesthesia risk assessments. Anesthesia Type Anesthesia Type: General History Source History Obtained from:: Patient and Chart Anesthesia Focused Assessment* Temperature: 98 F Pulse Rate: 113 Blood Pressure: 141/89 Respiratory Rate: 16 Pulse Ox: 100 Oxygen Delivery Method: Room Air Airway Assessment Mouth opens: >3 cm Mallampati Score: II Teeth Condition: Intact Neck Range of motion (ROM): Full ROM Labs Anesthesia Preop lab: CBC WBC, (4.4-11.0) 9.1 K/mm3 04/25/25, 11:15 RBC, (4.2-5.4) 4.40 M/mm3 04/25/25, 11:15 Hgb, (12.0-15.0) 12.4 g/dL 04/25/25, 11:15 Hct, (37-47) 37.6 % 04/25/25, 11:15 Plt Count, (150-450) 407 K/mm3 04/25/25, 11:15 CHEMISTRY Potassium, (3.3-5.1) 3.9 mmol/L 07/04/25, 08:54 Sodium, (133-145) 140 mmol/L 07/04/25, 08:54 Magnesium, (1.5-2.2) 1.9 mg/dL 12/20/24, 12:39 Phosphorus, (2.5-4.9) 3.3 mg/dL 03/09/22, 12:15 BUN, (4-19) 10 mg/dL 07/04/25, 08:54 Creatinine, (0.70-1.20) 0.58 mg/dL L 07/04/25, 08:54 Glucose, (70-99) 249 mg/dL H 07/04/25, 08:54 POC Glucose, (74-106) 354 mg/dL H 03/10/22, 21:04 TSH, (0.358-3.74) 3.12 uIU/mL 05/27/24, 15:10 COAG PT, (11.7-14.9) 13.2 SECONDS 04/25/25, 11:15 Urine Test Negative Negative 07/28/19, 13:53 Pre-Assessment Diagnosis/Proposed Procedure Planned Operative Procedure(s): (N/A) Robotic Cholecystectomy w/grams Anesthesia History Anesthesia History - regulatory compliance manager: Anesthesia History - regulatory compliance manager Hx Hospitalization No 08/04/25 10:33 Any Problems With Anesthesia No 08/04/25 10:33 Cholinesterase deficiency No 08/04/25 10:33 You/Your Family Experience No 08/04/25 10:33 fever (hyperthermia) with Relationship Recent Exposure to Contagious No 08/11/25 06:22 Disease Does patient have nerve No 08/04/25 10:33 stimulator Patient instructed to have device shut off --Does patient have Pacemaker No 08/11/25 06:18 or ICD? When Was Last Pacemaker Check QUESTION #4 FULL TEXT: You/Your Family Experience fever (hyperthermia) with Anesthesia Last Oral Intake Last Oral intake: Last Oral Intake NPO since 19:00 08/11/25 06:18 Meds taken in AM with sips of water? Meds patient instructed to take am of surgery PONV PONV - regulatory compliance manager: PONV - regulatory compliance manager Female Yes 08/04/25 10:33 HX of Motion Sickness No 08/04/25 10:33 HX of N/V After Surgery No 08/04/25 10:33 Non-Smoker Yes 08/04/25 10:33 Duration of Surgery greater Yes 08/04/25 10:33 than 60 minutes Number of Risk Factors 3 08/04/25 10:33 PONV Score Moderate Risk 08/04/25 10:33 Height & Weight Height & Weight: Anesthesia: Height & Weight Height 5 ft 1 in 08/11/25 06:18 Weight: 85 kg 08/11/25 06:18 Body Mass Index (BMI) 35.4 08/11/25 06:18 Respiratory Assessment Respiratory Assessment - regulatory compliance manager: Respiratory Tract Infection Hx - regulatory compliance manager Hx Respiratory Tract Infection No 08/04/25 10:33 STOP Sleep Apnea STOP Sleep Apnea - regulatory compliance manager: STOP Sleep Apnea - regulatory compliance manager Hx Hypertension No 08/04/25 10:33 Hx Sleep Apnea No 08/04/25 10:33 CPAP BIPAP Do you snore loudly (louder No 08/04/25 10:33 than talking or can be heard Do you often feel tired/ No 08/04/25 10:33 fatigued/ sleepy during daytime? Has anyone observed you stop No 08/04/25 10:33 breathing during sleep? STOP Results Negative 08/04/25 10:33 QUESTION #5 FULL TEXT : Do you snore loudly (louder than talking or can be heard through closed doors)? Tobacco Use History Tobacco Use History - regulatory compliance manager: Tobacco Use History - regulatory compliance manager Tobacco Use Smoking Status Never smoker 08/04/25 10:33 Hx Tobacco Use No 08/04/25 10:33 Years Smoking Packs Smoked per Day Smoking Cessation Date was within the last 15 years Hx Smoking Cessation Date Hx Smoking Cessation Counseling Hematologic Medial History Hematologic Hx - regulatory compliance manager: Hematologic Medical Hx - jewelry sorter Hx of Blood Transfusion No 08/04/25 10:33 Hx of Transfusion in last 3 No 08/04/25 10:33 Months Date of Last Transfusion (if within last 3 months) Ever experience any problems No 08/04/25 10:33 with transfusion(s)? Specify any problems Hx of Preganancy in last 3 No 08/04/25 10:33 Months Nurse Filling Out Transfusion DSCHRIBER 08/04/25 10:33 & Questions: Date: 08/04/25 08/04/25 10:33 Time: 10:33 08/04/25 10:33 Patient unable to answer at this time (ie. confused, unrespo /Reproduction History /Reproductive History - regulatory compliance manager: /Reproductive Hx- regulatory compliance manager Hx Now No 08/04/25 10:33 Gestational Age (in weeks): EDC: Hx Hx Para Hx Section SAB No 08/04/25 10:33 Active Medications Active Medications: Current Medications Generic Name Dose Route Start Last Admin Trade Name Freq PRN Reason Stop Dose Admin Cefazolin Sodium 2 gm/ Sodium 110 mls @ 200 mls/hr 08/11/25 07:30 Chloride IV 08/11/25 08:02 INTRAOP ONE Indocyanine Green 3.75 mg/ N/A 1.5 mls @ 999 mls/hr 08/11/25 06:45 08/11/25 06:23 IV 08/11/25 06:46 999 mls/hr PREOP ONE Administration Lactated Ringer's 1,000 mls @ 15 mls/hr 08/11/25 06:00 08/11/25 06:23 IV 15 mls/hr .Q48H JOSEY Administration PFSH Medical History Wears glasses Gastric reflux Depression Anxiety Alcohol use Insulin dependent diabetes mellitus Low iron Fatty liver Dietary restriction History of ulceration Asthma Chronic cough Non-smoker History of edema Abnormal biliary HIDA scan Hypertension Anxiety and depression Hypothyroidism Dyslipidemia (high LDL; low HDL) Home Medications ?Medication ?Instructions ?Recorded ?Last Taken ?Type insulin NPH isoph U-100 human 100 15 unit subcut BREAKFAST Check 03/09/22 Unknown History unit/mL subcutaneous suspension with primary doctor (Novolin N NPH U-100 Insulin isophane) insulin NPH isoph U-100 human 100 30 unit subcut QHS Check with 03/09/22 Unknown History unit/mL subcutaneous suspension primary doctor (Novolin N NPH U-100 Insulin isophane) insulin regular human 100 unit/mL 10 unit subcut TID Check with 03/09/22 Unknown History injection solution (Novolin R primary doctor Regular U-100 Insulin) insulin regular human 100 unit/mL See Protocol subcut ACHS Check 03/09/22 Unknown History injection solution (Novolin R with primary doctor Regular U-100 Insulin) dicyclomine 10 mg capsule 10 mg PO TID PRN abdominal pain 03/07/25 Unknown Rx #60 caps omeprazole 40 mg capsule,delayed 40 mg PO QDAY #30 caps 05/16/25 Unknown Rx release sucralfate 1 gram tablet 1 g PO QACHS #56 tabs 05/30/25 Unknown Rx telmisartan 20 mg tablet 10 mg PO DAILY 07/01/25 08/10/25 History metoclopramide HCl 5 mg tablet 5 mg PO QAC 3 weeks #63 tabs 08/01/25 Unknown Rx (Reglan) cholestyramine (with sugar) 4 gram 4 g PO QHS 08/04/25 Unknown History powder for susp in a packet Allergy/AdvReac Type Severity Reaction Status Date / Time No Known Allergies Allergy Verified 08/11/25 06:17 Family History Other CVA (cerebral vascular accident) Diabetes Heart disease Hypertension Surgical History History of esophagogastroduodenoscopy (EGD) History of colonoscopy Hx of tympanostomy tubes History of tonsillectomy Social History Smoking Status: Never smoker Review of Systems (Anesthesia) ROS Narrative System reviewed and no additional complaints, except as documented.
[2025-08-11 06:46] LABS: Internal QC Validated? YES +Cl - CLEAR BKGD; Pregnancy, Urine Negative Negative; Record Kit Lot#,Urine Preg 0000980607
--- NOTE | 2025-08-11 07:19 | PCM.HP.STD ---
HPI - General General Date of Service: 08/11/25 HPI Narrative SANTIAGO JACOBSEN, is a 25 F who presents for robotic cholecystectomy due to not feeling HIDA scan and abdominal pain. Patient denies any changes other than the omeprazole helping with the left upper quadrant pain. Office visit 06/01/2025 HPI HPI: 25-year-old female presents for follow-up. Patient has been taking omeprazole and Carafate states that some of the pain has improved but still having some left upper quadrant discomfort. Patient also complains of still having diarrhea at night typically eats after eating. Patient does have Bentyl listed on her med list however she states she does not have any at home. [facility] Medical History Wears glasses Gastric reflux Depression Anxiety Alcohol use Insulin dependent diabetes mellitus Low iron Fatty liver Dietary restriction History of ulceration Asthma Chronic cough Non-smoker History of edema Abnormal biliary HIDA scan Hypertension Anxiety and depression Hypothyroidism Dyslipidemia (high LDL; low HDL) Home Medications ?Medication ?Instructions ?Recorded ?Last Taken ?Type insulin NPH isoph U-100 human 100 15 unit subcut BREAKFAST Check 03/09/22 Unknown History unit/mL subcutaneous suspension with primary doctor (Novolin N NPH U-100 Insulin isophane) insulin NPH isoph U-100 human 100 30 unit subcut QHS Check with 03/09/22 Unknown History unit/mL subcutaneous suspension primary doctor (Novolin N NPH U-100 Insulin isophane) insulin regular human 100 unit/mL 10 unit subcut TID Check with 03/09/22 Unknown History injection solution (Novolin R primary doctor Regular U-100 Insulin) insulin regular human 100 unit/mL See Protocol subcut ACHS Check 03/09/22 Unknown History injection solution (Novolin R with primary doctor Regular U-100 Insulin) dicyclomine 10 mg capsule 10 mg PO TID PRN abdominal pain 03/07/25 Unknown Rx #60 caps omeprazole 40 mg capsule,delayed 40 mg PO QDAY #30 caps 05/16/25 Unknown Rx release sucralfate 1 gram tablet 1 g PO QACHS #56 tabs 05/30/25 Unknown Rx telmisartan 20 mg tablet 10 mg PO DAILY 07/01/25 08/10/25 History metoclopramide HCl 5 mg tablet 5 mg PO QAC 3 weeks #63 tabs 08/01/25 Unknown Rx (Reglan) cholestyramine (with sugar) 4 gram 4 g PO QHS 08/04/25 Unknown History powder for susp in a packet Allergy/AdvReac Type Severity Reaction Status Date / Time No Known Allergies Allergy Verified 08/11/25 06:17 Family History Other CVA (cerebral vascular accident) Diabetes Heart disease Hypertension Surgical History History of esophagogastroduodenoscopy (EGD) History of colonoscopy Hx of tympanostomy tubes History of tonsillectomy Social History Smoking Status: Never smoker Vital Signs Vital Signs Vital Signs: 08/11/25 06:18 08/11/25 06:22 08/11/25 06:42 Temperature 98 F 98 F Temperature Source Temporal Pulse Rate 113 H 113 H Respiratory Rate 16 16 Respiratory Pattern Normal Blood Pressure 141/89 H 141/89 H Blood Pressure Mean 106 Blood Pressure Source Monitor Blood Pressure Position Semi-Fowlers Blood Pressure Location Right Arm Pulse Ox 100 100 Oxygen Delivery Method Room Air Room Air Weight Weight: 187 lb 6.287 oz Body Mass Index (BMI) 35.4 Physical Exam Const alert, oriented x3 and no apparent distress HEENT normocephalic and head/scalp atraumatic Resp normal respiratory effort Cardio regular rate GI soft to palpation and non-tender; Negative for non-distended Palpation: Negative for guarding Extremity no clubbing, cyanosis or edema Skin no rashes or lesions noted Neuro CN's II-XII intact bilaterally Psych mental status grossly normal Results Lab / Micro Data 07/04/25 08:54 Labs: Laboratory Results - last 24 hr 08/11/25 06:10: Urine Test Negative 08/11/25 06:21: POC Glucose 138 H Assessment & Plan Assessment/Plan (1) Abnormal biliary HIDA scan: (2) Epigastric abdominal pain: (3) LUQ abdominal pain: PLAN: Plan Patient is aware that all of her symptoms will likely not be resolved after her cholecystectomy is patient still following with GI as well. Reviewed the anatomy with the patient and discussed the procedure: Robotic laparoscopic cholecystectomy with possible cholangiograms, possible open. Review risks including but not limited to bleeding, infection, hernia, bile leak, retained gallstones requiring another procedure ERCP- Endoscopic Retrograde Cholangiopancreatography, injury to another organ (bile ducts, common bile duct, small bowel, etc.) and conversion to an open procedure. All questions were answered. Kristin Alejandra M.D. Pager: [phone] [facility] [address] [place] [address] [address] [place] [address] Office: [phone]
[2025-08-11] MEDS: Midazolam 2 MG/2 ML Syringe IV (07:29)
[2025-08-11] MEDS: Cefazolin 1 GM/5 ML Vial 2 GM IV (07:30)
--- NOTE | 2025-08-11 07:30 | GALL_PTH ---
PATIENT: SANTIAGO JACOBSEN LOC: [facility] [place] U#:[id number] AGE/SX: 25/F ROOM: RE08/11/[address]: Dr. Kristin Alejandra MD : 2000 BED: DIS: 08/11/2025 SPEC #: [id number] RECD: 08/11/25 09:59 STATUS: ARLENE REQ #: [id number] ARTUR: 08/11/25 07:[address]: Kristin Alejandra DEPT: SURGICAL PATHOLOGY RECD BY: Tristan Salinas ENTERED: 08/11/25 11:06 SP TYPE: LOUISA HANSON DR: Dr. David Fong MD Tissues: A - Gallbladder, NOS Procedures: Surgery Specimen Level III HEADER OPERATION: Robotic cholecystectomy PRE-OP DIAGNOSIS: Abnormal biliary HIDA scan, epigastric abdominal pain, left upper quadrant abdominal pain TISSUE SUBMITTED: A- Gallbladder MICROSCOPIC DIAGNOSIS A. Gallbladder, cholecystectomy: - Chronic cholecystitis with focal adenomyomatous hyperplasia. MICROSCOPIC DESCRIPTION Slides are reviewed. GROSS DESCRIPTION A. Received in formalin labeled with the patient's name and date of . Designated as gallbladder is a 6.9 x 2.8 x 1.2 cm stanton-pink, somewhat fatty gallbladder with attached cystic duct (inked black, shaved) with an adjacent defect. A lymph node is not present. The mucosa is red and granular with a maximum wall thickness of 0.2 cm. No bile or choleliths are identified. Cholesterolosis is not present. Communication Center Operator sections are submitted in 1 cassette. IN 08/11/2025 CPT:75521
[2025-08-11] MEDS: Lidocaine 1% (5 ml sdv) 5 ML Vial IV (07:33)
[2025-08-11] MEDS: fentaNYL 100 MCG/2 ML Ampul 200 MCG IV (07:53)
[2025-08-11] MEDS: Lactated Ringers 2,000 ML 2000 ML IV (08:35)
--- NOTE | 2025-08-11 08:50 | OP.PCM_ITS ---
Operative Report (Standard)
--- NOTE | 2025-08-11 08:50 | PCM.OPRPT ---
Operative Report (Standard) Operative Information Date of Procedure: 08/11/25 Pre-Operative Diagnosis: Abnormal HIDA scan, epigastric abdominal pain Post-Operative Diagnosis: Same Surgery/Procedure Performed: Robotic cholecystectomy with ICG industrial designer: Yes Manager Of Corporate: Sherry Velasco Tasks completed by information services assistant: Opening & closing Type of Anesthesia: General/Supplemental RN Documented Start/Stop Times: Operation Date: 08/11/25 07:30 Case Time Into Pre-Op 08/11/25 05:59 Out of Pre-Op 08/11/25 07:28 Anesthesia Start 08/11/25 07:29 Into Room 08/11/25 07:29 Procedure Start 08/11/25 07:48 Procedure End 08/11/25 08:59 Anesthesia End 08/11/25 09:04 Out of Room 08/11/25 09:04 Into Recovery 08/11/25 09:05 Into Phase II Recovery 08/11/25 11:31 Out of Recovery 08/11/25 11:31 Procedure Start Time: 07:48 Procedure Stop Time: 08:59 Select all DRAINS/GRAFTS/IMPLANTS that apply: None Special Medications: Ancef 2 g IV x 1 Estimated Blood Loss: <10 cc Specimen collected: Yes Description of specimen(s) removed: Gallbladder Description of surgery: Indications: this is a 25 year-old female who developed abdominal pain/nausea/vomiting and on workup was found to have nonfilling of the gallbladder on HIDA scan, with a normal common bile duct. Robotic/laparoscopic cholecystectomy was elected. Description procedure: The patient was placed on operating table in supine position. A timeout was completed verifying correct patient, procedure, site, position and special equipment prior to beginning procedure. General Anesthesia was induced. The abdomen was prepped and draped in usual sterile fashion. An incision was made in the natural skin line below the umbilicus. The fascia was elevated and incised. The peritoneum was elevated and incised. Entry into the peritoneum was confirmed visually and no bowel was noted in the vicinity of the incision. Thibodeaux trocar was placed. The abdomen was insufflated with carbon dioxide to a pressure of 12-15 mmHg. Patient tolerated insufflation well. The laparoscope was then inserted and abdomen inspected. No injuries from initial trocar placement were noted. Additional trochars were then inserted in the following locations 8 mm trocar left upper quadrant and 2 more 8 mm trochars in right lower quadrant and left lower quadrant. The abdomen was inspected no abnormalities were found. The table is placed in reverse Trendelenburg position with the right side up. Robot was docked. The adhesions between the gallbladder and omentum were taken down carefully. The dome of the gallbladder was grasped with atraumatic grasper passed through the lateral port and retracted over the dome of the liver. Infundibulum was then grasped with atraumatic grasper through the midclavicular port and retracted to the right lower quadrant. While retracting the infundibulum there was an inadvertent enterotomy into the gallbladder and fluid was suctioned. This maneuver exposed Calot's triangle. The peritoneum overlying the gallbladder infundibulum was then incised and cystic duct and artery identified and circumferentially dissected. ICG was used to visualize the cystic duct/CBD. The cystic duct and artery were then doubly clipped and divided close to the gallbladder. The gallbladder then dissected from its peritoneal attachments by electrocautery. Hemostasis was checked and the gallbladder was removed using the endoscopic retrieval bag through the umbilical port. The gallbladder is passed off table as specimen. The gallbladder fossa was irrigated with saline and hemostasis obtained. There is no evidence of bleeding from the gallbladder fossa or cystic artery leakage of bile from the cystic duct stump. Secondary trochars removed under direct vision. No bleeding was noted the trocar sites. The laparoscope was withdrawn and umbilical trocar removed. The abdomen was allowed to collapse. The fascia of the 12 mm trocar was closed with a [id number] 0 Vicryl suture. The skin was closed with sutures of 4-0 Monocryl and Steri-Strips. The patient was extubated. The patient tolerated procedure well and was taken to the postanesthesia care unit in stable condition. Surgical Findings: See operative report Complications Complications: No
--- NOTE | 2025-08-11 08:53 | DCINST_ITS ---
Discharge Instructions
--- NOTE | 2025-08-11 08:53 | EX.PCM.DISCH ---
Discharge Instructions Diet Discharge Diet: Light diet - advance as tolerated Activity Discharge Activity: May Not Drive (while taking narcotic pain medications.) May shower in (days): 1 Lifting Restrictions: no lifting >20 lbs x 2 wks, no strenuous exercise for 4 wks Dressing / Incision Call your doctor if your incision/area has: Continuous Slow Oozing, Sudden Increased Bleeding, Increased Pain/ Swelling, Increased Redness, Foul Smelling Discharge and Swelling at the incision site Call your doctor if you observe: Fever of 101 or Higher Remove Dressing in: 2 days Cleanse incision/area with: Soap & Water Additional Dressing/Incision Instructions:: Steri-Strips will fall off in 7 to 10 days, if they do not fall off okay to remove after 10 days. Follow Up Care Please Follow Up With: Kristin Alejandra MD When: Call the office for a follow-up appointment 2 weeks; after 5 PM and on the weekends call [phone] with any concerns. Test Results: Test results from this visit will be discussed in further detail at your follow-up appointment, if applicable. Discharge Plan Admission Attending Provider: Kristin Alejandra Primary Care Provider: David Fong Instructions Print Language: Sammarinese Discharge Orders/Prescriptions Prescriptions: New oxycodone 5 mg capsule 5 mg PO Q6H PRN (Reason: pain) 3 Days Qty: 14 0RF Continued dicyclomine 10 mg capsule 10 mg PO TID PRN (Reason: abdominal pain) Qty: 60 0RF Discontinued cholestyramine (with sugar) 4 gram powder in packet 4 g PO QHS Rx Instructions: administer w/meal; avoid other meds within 1hr before or 4-6hr after dose No Action omeprazole 40 mg capsule,delayed release(DR/EC) 40 mg PO QDAY Qty: 30 5RF Rx Instructions: swallow whole; do not crush, chew, dissolve, cut, break sucralfate 1 gram tablet 1 g PO QACHS Qty: 56 0RF Rx Instructions: Take an hour before meals and at bedtime Novolin R Regular U100 Insulin 100 unit/mL Solution 10 unit SUBCUT TID Novolin N NPH U-100 Insulin 100 unit/mL Suspension 30 unit SUBCUT QHS Novolin N NPH U-100 Insulin 100 unit/mL Suspension 15 unit SUBCUT BREAKFAST Novolin R Regular U100 Insulin 100 unit/mL Solution See Protocol SUBCUT ACHS Protocol: 6. Sliding Scale Insulin Custom Condition: mg/dl range Dose/Route: Number of Units Protocol Text: Custom Sliding Scale telmisartan 20 mg tablet 10 mg PO DAILY metoclopramide HCl [Reglan] 5 mg tablet 5 mg PO QAC 21 Days Qty: 63 0RF Rx Instructions: administer 30 minutes before meals Referrals / Follow Up: David Fong MD [Primary Care Provider, Family Practice] Disposition Disposition (needs filled in before D/C Order can be placed): Home, Self Care
[2025-08-11] MEDS: Bupiv/Epi 0.25% 30 ML Vial (08:58)
[2025-08-11] MEDS: Ketorolac 30 MG/ML Syringe IV (08:59)
--- NOTE | 2025-08-11 09:10 | POSTOP.ANE_ITS ---
Anesthesia: Postop Eval I
--- NOTE | 2025-08-11 09:10 | PCM.POST.ANE ---
Anesthesia: Postop Eval I Current Vital Signs Temperature: 97.0 F Pulse Rate: 94 Blood Pressure: 147/95 Respiratory Rate: 20 Pulse Ox: 98 Oxygen Delivery Method: Room Air Assessment Airway patent: Yes Spontaneous unlabored respirations: Yes Mental status: Awake and Calm nausea: No Vomiting: No Anesthesia Complication: No Fluid Hydration Crystalloid volume administer (ml): 1,500 Total IV fluid infused: 1,500 Progress Note Anesthesia document: Postop Eval 1 completed: Yes
--- NOTE | 2025-08-11 16:13 | POSTOPAN2_ITS ---
Anesthesia Postop Eval I Sum
--- NOTE | 2025-08-11 16:13 | PCM.POSTANE2 ---
Anesthesia Postop Eval I Sum Postop Eval Completion status Anesthesia document: Postop Eval 1 completed: Yes Anesthesia Postop Eval I Summary Anesthesia Postop Eval I Summary: Anesthesia Postop Eval I: Assessment Summary Airway patent Yes 08/11/25 09:11 PUBLIC AID ELIGIBILITY [email or web address] Spontaneous unlabored Yes 08/11/25 09:11 PUBLIC AID ELIGIBILITY ASSISTANT.[email or web address] respirations Mental status Awake,Calm 08/11/25 09:11 PUBLIC AID ELIGIBILITY ASSISTANT.[email or web address] nausea No 08/11/25 09:11 PUBLIC AID ELIGIBILITY ASSISTANT.[email or web address] Vomiting No 08/11/25 09:11 PUBLIC AID ELIGIBILITY ASSISTANT.[email or web address] Anesthesia Postop Eval I: Fluid Summary Crystalloid volume administer 1,500 08/11/25 09:11 PUBLIC AID ELIGIBILITY ASSISTANT.[email or web address] (ml) Colloids volume administered ( ml) Blood Product volume administered (ml) Total IV fluid infused 1,500 08/11/25 09:11 PUBLIC AID ELIGIBILITY ASSISTANT.[email or web address] Anesthesia Postop Eval I: Summary Notes Anesthesia Complication No 08/11/25 09:11 PUBLIC AID ELIGIBILITY ASSISTANT.[email or web address] Anesthesia Complication Comment: Post-operative progress note Anesthesia: Postop Eval II Evaluation Mental status: Awake and Calm Pain Level: 1 nausea: No Vomiting: No Progress Note Post-operative progress note: Blood sugar in the 300s in the PACU. Gave few doses of insulin with improvement. Spoke with the surgeon and recommended admit postop. Complications Anesthesia Complication: No
== END 2025-08-11 14:19 | disposition home or self-care (01) ==
LOC: SDC 05:44 → AC 05:44
PROVIDERS: Anesthesiology; PCP Family Medicine; Referring Provider Surgery; Visit Provider Surgery
PROC: 0FT44ZZ Resection of Gallbladder, Percutaneous Endoscopic Approach (ICD-10-PCS; CPT 47562; principal; 2025-08-11 07:10)
DX: K81.1 Chronic cholecystitis (principal); E11.9 Type 2 diabetes mellitus without complications; K21.9 Gastro-esophageal reflux disease without esophagitis; E78.5 Hyperlipidemia, unspecified; I10 Essential (primary) hypertension; J45.909 Unspecified asthma, uncomplicated; Z79.899 Other long term (current) drug therapy
CPT/HCPCS: 47562; S2900; 00790; 36415; 80048; 81025; 82962; 83036; 88304; 93005; J2405

== ENCOUNTER 2025-09-12 11:09 | Outpatient (CLI) | payer BC, SELFPAY ==
[2025-09-12 11:43] LABS: Hematocrit 35.5 % (37-47); Hemoglobin 11.4 g/dL (12.0-15.0); Immature Granulocytes Count 0.040 X10^3/uL (0.0-0.0); Mean Corp Hgb Conc 32.1 g/dL (32-36); Mean Corpuscular Volume 88.5 fL (81-99); Mean Platelet Vol. 9.4 fl (6.2-12.0); NRBC Flagged by Analyzer 0 % (0-5); Platelet Count 378 K/mm3 (150-450); RBC Distribution Width CV 12.5 % (11.6-14.6); RBC Distribution Width SD 40.6 fl (35.1-43.9); Red Blood Count 4.01 M/mm3 (4.2-5.4); White Blood Count 8.3 K/mm3 (4.4-11.0)
--- NOTE | 2025-09-12 12:10 | CT_ITS ---
PROCEDURE: CTA CHEST W/WO CONTRAST 09/12/2025 REASON FOR EXAM: TACHYCARDIA,SOB,LEG SWELLING, CONCERN PT OR ATELECTASIS TECHNIQUE: Procedure Code: [id number] Modality: CT Procedure: CTA CHEST W/WO CONTRAST Multiplanar Sagittal and Coronal images were obtained. 3D post processing was performed CONTRAST: Isovue 370 VOLUME: 85 mL One or more dose reduction techniques were used (e.g., Automated exposure control, adjustment of the mA and/or kV according to patient size, use of iterative reconstruction technique). RADIATION DOSE SUMMARY: CTDlvol: 17.3 mGy DLP: 507.32 mGycm COMPARISON: May 17, 2025. FINDINGS: Hardware: None Lymph nodes: Stable small benign-appearing axillary and mediastinal lymph nodes. Heart: The heart is nonenlarged. No evidence of coronary artery calcification. Thoracic Aorta: No thoracic aortic aneurysm or dissection. Pulmonary Vessels: No evidence of acute pulmonary emboli through the major subsegmental branches. Lungs and Airways: The previously seen small ground-glass appearing nodular density in the superior segment of the left lower lobe has resolved. Mild persistent increased markings along the posterior aspect of the apical segment of the left lower lobe. Follow-up recommended. Pleura: No pleural effusion Upper Abdomen: Unremarkable Bones: Unremarkable CT/CTA Chest W/WO Contrast IMPRESSION: The previously seen nodular density in the apical segment of the left lower lob e has resolved. Minimal residual increased markings are seen along the posterior aspect. Six-month follow-up recommended. Reading Location: [place] [id number]
[2025-09-12 12:54] LABS: Pro- Brain NATRIURETIC PEPTIDE 462 pg/mL (<=450)
[2025-09-12 13:19] LABS: AST(SGOT) 28 U/L (<=31); Alanine Aminotransfer ALT/SGPT 24 U/L (<=34); Albumin, Serum 3.3 g/dL (3.5-5.0); Alkaline Phosphatase 138 U/L (35-104); Anion Gap 13 (5-15); BUN 7 mg/dL (4-19); BUN/Creat Ratio 11.9 RATIO (10-20); Calcium,Total 8.8 mg/dL (7.6-11.0); Carbon Dioxide 22.1 mmol/L (21.0-32.0); Chloride 107 mmol/L (98-108); Globulin 3.4 g/dL (2.2-4.2); Glucose 237 mg/dL (70-99); Potassium 3.7 mmol/L (3.3-5.1)
[2025-09-13 08:09] LABS: Prealbumin 21 mg/dL (14-35)
== END 2025-09-12 23:59 | disposition home or self-care (01) ==
PROVIDERS: PCP Family Medicine; Referring Provider Family Medicine; Visit Provider Family Medicine
DX: R00.0 Tachycardia, unspecified (principal); E10.9 Type 1 diabetes mellitus without complications; R60.0 Localized edema; R06.02 Shortness of breath
CPT/HCPCS: 36415; 71275; 80053; 83036; 83880; 84134; 84443; 85025; Q9967; A4216

== ENCOUNTER → 2025-09-12 | Outpatient (CLI) | payer BC, SELFPAY ==
--- OUTSIDE RECORDS SUMMARY | 2025-03-24 23:46 | XMS RPT_ITS ---
Author Name Auto Generated Organization OH[facility] Care Team Providers Care Counter Sales Representative Name Role Phone SKYLAR FONG Primary Care Physician FLORY Page Attending Physician SKYLAR Hatfield Primary Care Physician SKYLAR Ferguson Primary Care Physician SKYLAR Ferguson Primary Care Physician GLENYS Echevarria Attending Physician Unavailabl e PROBLEMS DATE TYPE CONDITION / CODE ATTENDING STATUS [facility] 03/25/2025 Active Tooth infection / K04.7(ICD-10) GLENYS GARCIA [facility] 03/25/2025 Active Tooth pain / K08.89(ICD-10) GLENYS GARCIA [facility] 03/02/2025 Admitting Diagnosis Fracture of tooth (traumatic), initial encounter for closed fracture / S02.5XXA(ICD-10) [facility] 03/02/2025 Admitting Diagnosis Dental caries, unspecified / K02.9(ICD-10) [facility] 03/02/2025 Admitting Diagnosis Periapical abscess without sinus / K04.7(ICD-10) [facility] 03/02/2025 Admitting Diagnosis Type 1 diabetes mellitus with hyperglycemia (HCC) / E10.65(ICD-10) [facility] 10/25/2024 Admitting Diagnosis Unspecified acute conjunctivitis, right eye / H10.31(ICD-10) FLORY MCGARRY [facility] 10/25/2024 Admitting Diagnosis Periorbital cellulitis / L03.213(ICD-10) FLORY MCGARRY Active [facility] RESULTS ED PROV NOTE Observed: 03/25/2025 4:51 AM Status: COMPLETED Source: [facility] HNO ID: [id number] Author: GLENYS GARCIA MD Service: Emergency Medicine Author Type: Resident Type: ED Provider Notes Filed: 03/28/2025 04:24 Note Text: Attestation signed by Glenys Garcia MD at 03/28/2025 4:24 AM Attending Note I evaluated the patient and personally participated in the hunt components. I supervised the resident and was present for hunt portions of any procedures. I agree with the resident's findings and plan as documented and have discussed the case and management of the patient's care with the resident. Signature: Glenys Garcia MD ED Provider Note Patient Name: Santiago Jacobsen : 2000 SERVICE DATE: 03/25/25 History Patient presents with: Dental Problem: C/o left lower dental pain, broke her tooth 2 weeks ago. Was taking antibiotics and has some improvement, pain increasing tonight. HPI 25-year-old female past medical history of T1DM, GERD, hypothyroidism presenting today for dental pain. 3 weeks ago the patient broke a tooth while grinding her teeth at night. Since then she developed severe pain around the tooth. She went to [facility] who prescribed her amoxicillin. She finished amoxicillin a few days ago. Last night she woke up with severe pain. She has not had any fevers. She denies any chest pain, shortness of breath, chills, cough. PAST MEDICAL HISTORY Diagnosis Date DKA (diabetic ketoacidosis) ([facility]) 04/2022 Gastroparesis Hypertension Pancreatic insufficiency ([facility]) T1DM (type 1 diabetes mellitus) ([facility]) PAST SURGICAL HISTORY Procedure Laterality Date TONSILLECTOMY AND ADENOIDECTOMY <AGE 11 FAMILY HISTORY Problem Relation Age of Onset Diabetes Father other (CHF) Father Social History Tobacco Use Smoking status: Never Smokeless tobacco: Never Vaping Use Vaping status: Never Used Substance and Sexual Activity Alcohol use: Not Currently Drug use: Never Sexual activity: Yes ALLERGIES Allergen Reactions Penicillins Rash, Vomiting Review of Systems See HPI Physical Exam Vitals [03/25/25 0424] BP Pulse Temp Temp src Resp SpO2 Weight Height 178/90 (!) 119 36.8 ?C (98.3 ?F) Oral 18 100 % 75.3 kg (166 lb) -- Physical Exam Constitutional: Appearance: Normal appearance. HENT: Head: Normocephalic and atraumatic. Mouth/Throat: Lips: No lesions. Mouth: Mucous membranes are moist. Dentition: Dental abscesses present. Tongue: No lesions. Cardiovascular: Rate and Rhythm: Normal rate and regular rhythm. Pulses: Normal pulses. Heart sounds: Normal heart sounds. Pulmonary: Effort: Pulmonary effort is normal. No respiratory distress. Breath sounds: Normal breath sounds. No wheezing, rhonchi or rales. Abdominal: General: Abdomen is flat. There is no distension. Palpations: Abdomen is soft. Tenderness: There is no abdominal tenderness. There is no guarding or rebound. Musculoskeletal: Right lower leg: No edema. Left lower leg: No edema. Skin: General: Skin is warm and dry. Neurological: General: No focal deficit present. Mental Status: She is alert. Diagnostic Testing ED Labs Ordered and Reviewed - No data to display DENTAL BLOCK Date/Time: 03/25/2025 6:03 AM Performed by: Alaina Clemente DO Authorized by: Glenys Garcia MD Indications: Indications: dental abscess and dental pain Location: Block type: Inferior alveolar Laterality: Left Procedure details (see MAR for exact dosages): Syringe type: Aspirating dental syringe Needle gauge: 25 G Anesthetic injected: Bupivacaine 0.25% WITH epi Injection procedure: Anatomic landmarks identified, introduced needle, incremental injection, anatomic landmarks palpated and negative aspiration for blood Post-procedure details: Outcome: Anesthesia achieved Patient tolerance of procedure: Tolerated well, no immediate complications ED Course / Clinical Impression Clinical Impressions as of 03/25/25 0623 Tooth infection Tooth pain MDM / Disposition / Plan MDM 25 year old year old FEMALE presents to the ED today for dental pain. On initial evaluation patients vital signs were tachycardic most likely secondary to pain. Pertinent exam findings listed above. Based on patient's history and physical exam she is most likely suffering from a dental infection secondary to her broken tooth. Patient was provided with Toradol for pain. She was also given a dental block to help with the pain. This was successful at preventing anesthesia. She was discharged home with resources of different dentist to call to schedule a appointment. She was unable to get a root canal done by her dentist due to it being too expensive. She agrees to continue taking the antibiotics. She will use Tylenol and Motrin for pain along with heat and ice. She was given a note for work for today. Alaina Clemente DO Emergency Medicine PGY-1 [facility] This note was created using [employer] dictation software. Every attempt was made to proofread, however you may find errors regardless of how insignificant they may be. They are purely unintentional and if there are any concerns regarding this dictation, please do not hesitate to call the dictating provider for clarification. SIGNATURE: DO Mack Thao JESSICA 03/25/25 0624 GLENYS GARCIA 03/28/25 0424 ED NURSING NOTE Observed: 03/02/2025 10:51 PM Status: COMPLETED Source: [facility] Pt still refusing fluids chirag pite HR, provider notified and pt being Dc'd. CT MAXILLOFACIAL W IV CONTRAST Observed: 03/02/2025 9:47 PM Status: F Source: [facility] Patient Name[facility]IAG[facility] 2000 [id number] Exam Date/Time: 03/02/2025 21:35 Procedure: CT MAXILLOFACIAL W IV CONTRAST Ordering Provider: BOOTH MADISON Reason For Exam: L sided facial swelling/broken tooth, concern for abscess MAXILLOFACIAL CT SCAN WITH IV CONTRAST CLINICAL INDICATION: L sided facial swelling/broken tooth, concern for abscess, facial pain TECHNIQUE: Maxillofacial CT scan with IV contrast. Multiplanar reformations. Dose reduction was employed with automated exposure control. COMPARISON: None FINDINGS: Numerous dental caries and periapical lucencies. Periapical lucency with perforation of adjacent lateral mandibular cortex involving LEFT lower first molar. No other definite cortical perforation. No adjacent abscess seen. Submandibular adenopathy on the LEFT, presumably reactive. There is some left- sided facial soft tissue swelling. Broken RIGHT lower third molar. IMPRESSION: 1. Dental disease without soft tissue abscess apparent. Report Dictated on Electronically Signed By: Andrew Clarke MD Electronically Signed Date/Time: 03/02/2025 9:47 PM EDT Pt presents to the ED with dental concerns. Pt has noted edema on he left side of her face. Pt states she believes she may have broken a tooth BASIC METABOLIC PANEL Collected: 2024 8:36 PM Status: F Source: [facility] [employer] [facility] [employer] TYPE CODE TESTS RESULT OUT OF RANGE REFERENCE UNITS LAB [id number] SODIUM 136 136-145 mmol/L LAB [id number] POTASSIUM 3.6 3.5-5.1 mmol/L Result Comment: Plasma potas sium values may be up to 0.5 mmol/L lower than serum values. LAB 0123401 CHLORIDE 106 98-107 mmol/L LAB [id number] CARBON DIOXIDE 16 Low 22-29 mmol/L LAB [id number] UREA NITROGEN 12 8-21 mg/dL LAB 1726560 CREATININE 0.87 0.57-1.11 mg/dL LAB 2224529 GLUCOSE 349 High 74-100 mg/dL LAB 3675865 CALCIUM 9.1 8.4-10.2 mg/dL LAB [id number] ANION GAP (TAPIA, CALCULATED) 14 High 3-13 mmol/L LAB [id number] GLOMERULAR FILTRATION RATE ML/MIN/1.73 SQ M.PREDICTED >90.0 >60.0 mL/min/1. 73m*2 Result Comment: Calculation based on the Chronic Kidney Disease Epidemiology Collaboration (CKD-EPI) equation refit without adjustment for race Performed By: [employer] or: JOSEFINA HORNER ([id number]) [facility] ([facility]) [address] [place] [address] QUANTITATIVE BLOOD Collected: 03/02/2025 8:36 PM Status: F Source: [facility] TYPE CODE TESTS RESULT OUT OF RANGE REFERENCE UNITS LAB [id number] HCG QUANTITATIVE <2.5 Females <5 mIU/ mL Result Comment: ORDER COMMEN TS: Values in should double every 2 to 3 days for the first 6 weeks. Elevated concentrations of human chorionic gonadotropin (hCG) measured in the first trimester of are observed in normal , but may serve as an indication of chorionic carcinoma, hydatiform mole, or multiple . Decreasing hCG concentrations indicate threatened or missed , recent termination of , ectopic , gestosis or intrauterine . Danika- and postmenopausal females may have detectable hCG concentrations (< or = to 14 mIU/mL) due to pituitary production of hCG. Serum follicle-stimulating hormone measurement may aid in ruling-out in this population. Cutoffs of greater than 20 to 45 mIU/mL have been suggested and are method dependent. False-elevations (called phantom human chorionic gonadotropin: hCG) may occur with patients who have human antianimal or heterophilic antibodies. Some specimens may not dilute linearly due to abnormal forms of hCG. Elevated hCG concentrations not associated with are found in patients with other diseases such as tumors of the germ cells, ovaries, bladder, pancreas, stomach, lungs, and liver. This test is not intended to detect or monitor tumors or gestational trophoblastic disease. Performed By: [facility] [employer] or: JOSEFINA HORNER ([id number]) [facility] ([facility]) [address] [place] [address] LACTIC ACID WITH REFLEX Collected: 02/17 8:36 PM Status: F Source: [facility] TYPE CODE TESTS RESULT OUT OF RANGE REFERENCE UNITS LAB [id number] LACTIC ACID 1.5 0.5-2.2 mmol/L Performed By: [employer] or: JOSEFINA HORNER ([id number]) [facility] ([facility]) [address] [place] [address] CBC WITH AUTO DIFFERENTIAL Collected: 03/02/2025 8:36 PM Status: F Source: [facility] TYPE CODE TESTS RESULT OUT OF RANGE REFERENCE UNITS LAB [id number] WBC 10.2 3.6-10.7 10*3/uL LAB 5559541 RBC 4.59 3.80-5.20 10*6/uL LAB 1254578 HEMOGLOBIN 13.2 11.7-16.0 g/dL LAB 8297903 HEMATOCRIT 38.7 35.0-47.0 % LAB 3382326 MCV 84.3 77.0-99.0 fL LAB 3046866 MCH 28.8 26.0-34.0 pg LAB 3274068 MCHC 34.1 30.5-36.0 % LAB 9068311 RDW 12.0 11.5-15.0 % LAB 0104859 PLATELET COUNT 395 140-440 10*3/uL LAB 1154635 MPV 9.5 9.0-12.7 fL LAB 254 NRBC 0.0 0.0-2.0 /100 WBCs LAB 5327519 NEUTROPHILS RELATIVE 63.0 38.0-82.0 % LAB 7957667 LYMPHOCYTES RELATIVE 27.5 15.0-45.0 % LAB 4317109 MONOCYTES RELATIVE 6.7 5.0-13.0 % LAB 8890516 EOSINOPHILS RELATIVE 1.5 0.0-6.0 % LAB 1100064 BASOPHILS RELATIVE 0.9 0.0-2.0 % LAB 0478550 IMMATURE GRANS % 0.4 0.0-2.0 % LAB 5980087 NEUTROPHILS ABSOLUTE 6.4 1.8-7.5 10*3/uL LAB 9541180 LYMPHOCYTES ABSOLUTE 2.8 1.0-4.3 10*3/uL LAB 0870968 MONOCYTES ABSOLUTE 0.7 0.0-0.9 10*3/uL LAB 7282807 EOSINOPHILS ABSOLUTE 0.2 0.0-0.5 10*3/uL LAB 2570031 BASOPHILS ABSOLUTE 0.1 0.0-0.2 10*3/uL LAB 827514 IMMATURE GRANS ABSOLUTE 0.0 <0.1 10*3/uL Performed By: [facility] [employer] or: JOSEFINA HORNER ([id number]) [facility] ([facility]) [address] [place] [address] ED NURSING NOTE Observed: 03/02/2025 4:41 PM Status: COMPLETED Source: [facility] Dental pain and swelling ED PROVIDER NOTE Observed: 03/02/2025 4:41 PM Status: COMPLETED Source: [facility] EMERGENCY DEPARTMENT ENCOUNT ER Pt Name: Santiago Jacobsen Birthdate 2000 Date of evaluation: 03/02/2025 ED Provider: Shazia Booth PA-C CHIEF COMPLAINT Chief Complaint Patient presents with Dental Problem Pt presents to the ED with dental concerns. Pt has noted edema on he left side of her face. Pt states she believes she may have broken a tooth. HISTORY OF PRESENT ILLNESS (Location/Symptom, Timing/Onset, Context/Setting, Quality, Duration, Modifying Factors, Severity) Note limiting factors. I wore appropriate PPE for the entirety of this encounter. HPI Santiago Jacobsen is a 25 y.o. female with PMH significant for type 1 diabetes who presents to the emergency department for evaluation of dental pain and facial swelling. Patient states that she is concerned she may have broken a tooth as over the last couple of days she has been having some pain along the left lower side of her jaw. States that when she woke up this morning, the left side of her cheek and jaw appeared to be swollen. Was concerned she may have a dental infection which is what prompted her to come to the ER. No fevers or chills. No direct injury or trauma to the mouth that she is able to recall. States she actually is an appointment coming up on Friday with her dentist. No difficulty swallowing, breathing, or managing oral secretions. No associated neck pain or headache. Nursing Notes were reviewed. Limitations to history: None Outside historians: None REVIEW OF SYSTEMS Review of Systems 14 systems reviewed, positives and pertinent negatives as per HPI. All other systems were reviewed and are negative. PAST MEDICAL HISTORY Medical History[1] SURGICAL HISTORY Surgical History[2] CURRENT MEDICATIONS Discharge Medication List as of 03/02/2025 10:42 PM ALLERGIES Patient has no known allergies. FAMILY HISTORY Family History[3] SOCIAL HISTORY Social History[4] SCREENINGS PHYSICAL EXAM ED Triage Vitals [03/02/25 1805] Temp Heart Rate Resp BP 36.8 ?C (98.3 ?F) (!) 115 16 (!) 154/96 SpO2 Temp Source Heart Rate Source Patient Position 100 % Temporal Monitor Sitting BP Location FiO2 (%) Left arm -- Physical Exam Vitals and nursing note reviewed. Constitutional: General: She is not in acute distress. Appearance: She is well-developed. HENT: Head: Normocephalic and atraumatic. Comments: Mild soft tissue swelling appreciated over the left jaw and cheek, without palpable fluctuant mass. No streaking redness. No open or draining wounds. Bite symmetric. No trismus. Mouth/Throat: Mouth: Mucous membranes are moist. Comments: Teeth marked above with dental caries, and one cracked tooth. Soft tissue swelling of the gum, but no obvious abscess amenable to drainage at the bedside. Given this midline. No drooling or trismus. Easily managing oral secretions. Eyes: Conjunctiva/sclera: Conjunctivae normal. Neck: Comments: Full range of motion without pain. Cardiovascular: Rate and Rhythm: Regular rhythm. Tachycardia present. Heart sounds: No murmur heard. Comments: Radial pulses intact and symmetric bilaterally. Pulmonary: Effort: Pulmonary effort is normal. No respiratory distress. Breath sounds: Normal breath sounds. Abdominal: Palpations: Abdomen is soft. Tenderness: There is no abdominal tenderness. Musculoskeletal: General: No swelling. Cervical back: Neck supple. Skin: General: Skin is warm and dry. Capillary Refill: Capillary refill takes less than 2 seconds. Neurological: Mental Status: She is alert. Psychiatric: Mood and Affect: Mood normal. DIAGNOSTIC RESULTS RADIOLOGY (Per Emergency Physician): Interpretation per the Radiologist below, if available at the time of this note: CT MAXILLOFACIAL W IV CONTRAST Final Result 1. Dental disease without soft tissue abscess apparent. Report Dictated on Electronically Signed By: Andrew Clarke MD Electronically Signed Date/Time: 03/02/2025 9:47 PM EDT LABS: Labs Reviewed BASIC METABOLIC PANEL - Abnormal Result Value SODIUM 136 POTASSIUM 3.6 CHLORIDE 106 CARBON DIOXIDE 16 (*) UREA NITROGEN 12 CREATININE 0.87 GLUCOSE 349 (*) CALCIUM 9.1 ANION GAP 14 (*) eGFR >90.0 CBC WITH AUTO DIFFERENTIAL - Normal Auto WBC 10.2 RBC 4.59 Hemoglobin 13.2 Hematocrit 38.7 MCV 84.3 MCH 28.8 MCHC 34.1 RDW 12.0 Platelets 395 MPV 9.5 nRBC 0.0 Neutrophils Relative 63.0 Lymphocytes Relative 27.5 Monocytes Relative 6.7 Eosinophils Relative 1.5 Basophils Relative 0.9 Immature Grans % 0.4 Neutrophils Absolute 6.4 Lymphocytes Absolute 2.8 Monocytes Absolute 0.7 Eosinophils Absolute 0.2 Basophils Absolute 0.1 Immature Grans Absolute 0.0 LACTIC ACID WITH REFLEX - Normal LACTIC ACID 1.5 HCG QUANTITATIVE BLOOD HCG QUANTITATIVE <2.5 Narrative: Values in should double every 2 to 3 days for the first 6 weeks. Elevated concentrations of human chorionic gonadotropin (hCG) measured in the first trimester of are observed in normal , but may serve as an indication of chorionic carcinoma, hydatiform mole, or multiple . Decreasing hCG concentrations indicate threatened or missed , recent termination of , ectopic , gestosis or intrauterine . Danika- and postmenopausal females may have detectable hCG concentrations (< or = to 14 mIU/mL) due to pituitary production of hCG. Serum follicle-stimulating hormone measurement may aid in ruling-out in this population. Cutoffs of greater than 20 to 45 mIU/mL have been suggested and are method dependent. False-elevations (called phantom human chorionic gonadotropin: hCG) may occur with patients who have human antianimal or heterophilic antibodies. Some specimens may not dilute linearly due to abnormal forms of hCG. Elevated hCG concentrations not associated with are found in patients with other diseases such as tumors of the germ cells, ovaries, bladder, pancreas, stomach, lungs, and liver. This test is not intended to detect or monitor tumors or gestational trophoblastic disease. All other labs were within normal range or not returned as of this dictation. EMERGENCY DEPARTMENT COURSE and DIFFERENTIAL DIAGNOSIS/MDM: Vitals: Vitals: 03/02/25 1805 03/02/25 2057 03/02/25 2235 BP: (!) 154/96 (!) 150/103 (!) 154/100 BP Location: Left arm Patient Position: Sitting Pulse: (!) 115 (!) 118 (!) 117 Resp: 16 16 16 Temp: 36.8 ?C (98.3 ?F) 37.2 ?C (99 ?F) 36.9 ?C (98.4 ?F) TempSrc: Temporal Temporal Temporal SpO2: 100% 100% 100% Medications sodium chloride 0.9 % bolus 1,000 mL (1,000 mL IntraVENous Not Given 03/02/252042) ondansetron (Zofran) injection 4 mg (4 mg IntraVENous Given 03/02/252039) ketorolac (Toradol) injection 15 mg (15 mg IntraVENous Given 03/02/252040) iopamidol (Isovue-370) 76 % injection 75 mL (75 mL IntraVENous Given 03/02/252136) amoxicillin-clavulanate (Augmentin) 875-125 MG per tablet 1 tablet (1 tablet Oral Given 5/14/25 5992) I independently evaluated the patient with supervising attending physician available as needed for collaboration. Nursing notes and medical records reviewed. Differential considerations included deep space infection versus abscess versus cellulitis Initial medical management includes IV fluids, Zofran, Toradol Initial workup includes CBC, BMP, lactic acid, hCG quant, CT maxillofacial with IV contrast Lab workup results CBC without leukocytosis. No anemia. BMP without fluid electrolyte abnormality or VAMSHI. Hyperglycemic to 349 with gap of 14. Lactic acid normal. testing negative. Imaging results per radiology: CT: FINDINGS: Numerous dental caries and periapical lucencies. Periapical lucency with perforation of adjacent lateral mandibular cortex involving LEFT lower first molar. No other definite cortical perforation. No adjacent abscess seen. Submandibular adenopathy on the LEFT, presumably reactive. There is some left-sided facial soft tissue swelling. Broken RIGHT lower third molar. IMPRESSION: 1. Dental disease without soft tissue abscess apparent. Chronic conditions contributing to patients presentation include T1DM Upon reassessment patient remains nontoxic. However, is persistently tachycardic. Informed by nursing staff that patient had refused her fluids. Discussed with patient given her tachycardia, with concern for developing infection that I wanted her to get the fluids. However after long discussion she continued to refuse. Again after her BMP resulted with a glucose of 349, and gap of 14, I discussed with her the fluids would help bring down her heart rate, as well as bring down her sugar and close her anion gap. She states she has not been drinking as much over the last couple of days, so likely partially due to decreased oral intake, lower index of suspicion for DKA or HHS at this time, but again she refused. She was not agreeable to any further workup and was requesting to be discharged home. Stated that she had to go to work in the morning, and so would like to be discharged at this time. Given her CT scan does not show any evidence of abscess, cellulitis, or deep space infection, and her lab work is without leukocytosis and her lactic acid is normal, she is not meeting sepsis criteria, despite her tachycardia. Glucose is elevated, but have lower index of suspicion at this time for DKA or HHS. Per chart review appears she does struggle with glycemic control. Did however discuss with patient that without additional lab work, we would not be able to fully assess for DKA/HHS. Again discussed treatment with fluids, but patient declined. As such, we will plan to discharge patient per her request at this time. Given she is not febrile, toxic, or septic do not believe constitutes AMA, but rather informed refusal. First dose of Augmentin given in ED. Will plan to send with 10-day course of Augmentin as well as prescription for Magic mouthwash. Discussed with patient that she needs to continue to very closely monitor her sugars, and follow-up closely with her primary care provider as an outpatient within the next 48 hours for this. Recommended she keep her previously scheduled appointment for her dentist on Friday, and return to the emergency department should anything change or worsen. She expressed understanding of the very strictly discussed ER return precautions, was comfortable and agreeable plans for discharge. Discharged in stable condition with stable vitals. FINAL IMPRESSION 1. Broken teeth 2. Dental caries 3. Dental infection 4. Type 1 diabetes mellitus with hyperglycemia (HCC) DISPOSITION Discharge 03/02/2025 10:41:04 PM Shared decision making preformed. PATIENT REFERRED TO: Skylar Nguyen E Cali Rust [address] [facility] [phone] In 2 days [facility] EMERGENCY DEPT [address] [place] [id number] As needed, If symptoms worsen DISCHARGE MEDICATIONS: Discharge Medication List as of 03/02/2025 10:42 PM START taking these medications Details amoxicillin-clavulanate (Augmentin) 875-125 MG tablet Take 1 tablet by mouth every 12 hours for 10 days., Starting 03/02/2025, Until 03/12/2025, Normal diphenhydramine/alum & mag hydroxide/lidocaine (Magic Mouthwash) oral solution Swish and spit 5 mL every 6 hours as needed for irritation or dental pain., Starting 03/02/2025, Normal (Comment: Please note this report has been produced using speech recognition software and may contain errors related to that system including errors in grammar, punctuation, and spelling, as well as words and phrases that may be inappropriate. 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 Mastoiditis, acute, left Obesity (BMI 30-39.9) 09/18/2012 Perforation of tympanic membrane 01/25/2020 Right otitis media 01/25/2020 Sepsis (HCC) 11/17/2018 Sinusitis 01/25/2020 Thyroid disease [2] Past Surgical History: Procedure Laterality Date CYST REMOVAL leg TONSILLECTOMY (HISTORICAL) [3] Family History Problem Relation Name Age of Onset Diabetes Father No Known Problems Mother Heart disease Father Hyperlipidemia Father [4] Social History Socioeconomic History Marital status: Single Tobacco Use Smoking status: Never Smokeless tobacco: Never Substance and Sexual Activity Alcohol use: No Alcohol/week: 0.0 standard drinks of alcohol Drug use: No Shazia Booth PA-C 03/03/25 0041 ED PROVIDER NOTE Observed: 10/25/2024 10:30 AM Status: COMPLETED Source: [employer] [facility] EMERGENCY DEPARTMENT ENCOUNT ER Pt Name: Santiago Jacobsen Birthdate 2000 Date of evaluation: 10/25/2024 ED Provider: Flory Mcgarry MD CHIEF COMPLAINT Chief Complaint Patient presents with Eye Problem HISTORY OF PRESENT ILLNESS (Location/Symptom, Timing/Onset, Context/Setting, Quality, Duration, Modifying Factors, Severity) Note limiting factors. I wore appropriate PPE for the entirety of this encounter. HPI Santiago Jacobsen is a 24 y.o. who presents to the emergency department with chief complaint of for evaluation of right eye irritation. Patient states that she has had some congestion and a few days of blurry vision and sensation of foreign body to the right eye with redness to the right eye. She states that she had had a small abrasion to her eye years ago and she occasionally gets redness irritation and then it resolves but this time it is continued and she started getting some swelling around the eye. She went to an urgent care and they prescribed a few medications and then she went to her eye doctor but they were busy and not able to see her so she came to the emergency department as she was not clear on the diagnosis or plan of care from the urgent care. Denies any double vision. Denies chest pain. Does have some mild shortness of breath with a history of asthma. Denies any pain when she takes a deep breath. Nursing Notes were reviewed. Limitations to history: None Outside historians: None REVIEW OF SYSTEMS Review of Systems Pertinent positives and negatives as per HPI. PAST MEDICAL HISTORY Past Medical History: Diagnosis Date Diabetes with ketoacidosis ([facility]) ([facility]) Diabetic ketoacidosis without coma associated with type 1 diabetes mellitus ([facility]) ([facility]) 03/25/2019 DKA, type 1, not at goal ([facility]) ([facility]) 03/15/2019 DM (diabetes mellitus) type 1, uncontrolled, with ketoacidosis ([facility]) ([facility]) 03/15/2019 Hypertension Lactic acidemia 03/25/2019 Leukocytosis 03/25/2019 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 FAMILY HISTORY Family History Problem Relation Name Age of Onset Diabetes Father No Known Problems Mother Heart disease Father Hyperlipidemia Father SOCIAL HISTORY Social History Socioeconomic History Marital status: Single Tobacco Use Smoking status: Never Smokeless tobacco: Never Substance and Sexual Activity Alcohol use: No Alcohol/week: 0.0 standard drinks of alcohol Drug use: No SCREENINGS PHYSICAL EXAM ED Triage Vitals Temp Heart Rate Resp BP 10/25/24 1047 10/25/24 0000 10/25/24 0000 10/25/24 0000 36.9 ?C (98.5 ?F) 110 18 (!) 140/92 SpO2 Temp src Heart Rate Source Patient Position 10/25/24 0000 -- -- 10/25/24 0000 100 % Sitting BP Location FiO2 (%) 10/25/24 0000 -- Right arm General appearance: Well-appearing, no acute distress. Psych: Awake alert and oriented ?3. Pleasant and cooperative. Skin: Warm and dry. Neck: Supple. Cardiovascular: Mild tachycardia with regular rhythm Lungs: Clear to auscultation bilaterally, no accessory muscle use, tachypnea, or retractions. Extremities: Warm and well perfused. NROM and SILT throughout upper and lower extermities. HEENT: PERRL, EOMI, MMM Pressures in the right eye of 19 average with conjunctival injection. Relief of the symptoms with topical tetracaine. See nursing notes for visual acuity. There is mild swelling to the right upper eyelid no significant surrounding erythema. DIAGNOSTIC RESULTS Interpretation per the Radiologist below, if available at the time of this note: No orders to display ED BEDSIDE ULTRASOUND: Performed by ED Physician - none LABS: Labs Reviewed - No data to display All other labs were within normal range or not returned as of this dictation. EMERGENCY DEPARTMENT COURSE and DIFFERENTIAL DIAGNOSIS/MDM: Vitals: Vitals: 10/25/24 0000 10/25/24 1047 10/25/24 1330 BP: (!) 140/92 135/89 (!) 142/81 BP Location: Right arm Right arm Right arm Patient Position: Sitting Sitting Lying Pulse: 110 (!) 113 (!) 112 Resp: 18 18 18 Temp: 36.9 ?C (98.5 ?F) SpO2: 100% 100% 100% Weight: 70.3 kg (155 lb) 70.3 kg (155 lb) Height: 1.549 m (5' 1) The patient presented with a chief complaint of eye discomfort. The differential diagnosis associated with this patient's presentation includes bacterial, viral, allergic conjunctivitis, iritis, periorbital cellulitis, bronchitis. Diagnoses as of 10/25/24 1339 Acute conjunctivitis of right eye, unspecified acute conjunctivitis type Periorbital cellulitis of right eye ED Medications managed: Medications tetracaine (Altacaine) 0.5 % ophthalmic solution 2 drop (2 drops Right Eye Given 10/25/24 1212) Patient is on topical erythromycin, oral prednisone, and topical ophthalmic antihistamines. Patient referred to her eye doctor for follow-up. Patient comfortable with this plan. He also started on oral antibiotics with concern for possible periorbital cellulitis. CRITICAL CARE TIME CONSULTS: None PROCEDURES: Unless otherwise noted below, none Procedures FINAL IMPRESSION 1. Acute conjunctivitis of right eye, unspecified acute conjunctivitis type 2. Periorbital cellulitis of right eye DISPOSITION Discharge 10/25/2024 01:37:59 PM PATIENT REFERRED TO: Skylar Fong [address] [facility] [address] Schedule an appointment as soon as possible for a visit in 1 week [facility] ED [address] [place] [address] If symptoms worsen DISCHARGE MEDICATIONS: New Prescriptions No medications on file (Comment: Please note this report has been produced using speech recognition software and may contain errors related to that system including errors in grammar, punctuation, and spelling, as well as words and phrases that may be inappropriate. If there are any questions or concerns please feel free to contact the dictating provider for clarification.) Flory Mcgarry MD (electronically signed) Emergency Medicine Provider Flory Mcgarry MD 10/25/24 1623 ED NURSING NOTE Observed: 10/25/2024 10:30 AM Status: COMPLETED Source: [facility] Patient states she was at [facility] but they did nothing for her. She states she went for her right eye swelling and redness that started on Friday. She noticed the redness when she got home from work. She states the swelling then started Friday evening. She states when she was at urgent care they did tell her she had bronchitis but no treatment for her eye. COVID AND INFLUENZA A/B AND RSV PCR, ROUTINE Observed: 10/25/2024 9:50 AM Status: F Source: [facility] SARS-COV-2 (AGENT OF COVID-1 9) RNA: Not detectedINFLUENZA A RNA: Not detectedINFLUENZA B RNA: Not detectedRESPIRATORY SYNCYTIAL VIRUS (RSV) RNA: Not detected Performed By: [facility] CLIA [id number] [address] [place] [address] [place] [address] [place] Observed: 10/25/2024 9:48 AM Status: COMPLETED Source: [facility] HNO ID: [id number] Author: YESY BANGURA APRN.PERINATAL DIRECTOR Service: ? Author Type: Nurse Practitioner Type: Progress Notes Filed: 10/25/2024 10:08 Note Text: This note was created using NoteWriter. Subjective Santiago Jacobsen is a 24 year old female. HPI by patient: Santiago is a 24 year old presenting to the office with the complaint of R eye pain. Runny nose, SOB (has asthma, covid induced) ear pain, cough, body aches Started approximately Juan Carlos her eye started hurting, everything else started after that. Denies any other concerns Covid Immunization Dates Overdue - Covid-19 Vaccine () Overdue since 06/20/2024 04/05/2021 Imm Admin: COVID-19 original vaccine, age 12+ yr, monovalent (PFIZER-BIONTECH - PURPLE TOP) 03/15/2021 Imm Admin: COVID-19 original vaccine, age 12+ yr, monovalent (PFIZER-BIONTECH - PURPLE TOP) Sick contacts: yes her father has septic PNA Smoking history/second hand smoke: no OTC tylenol and excedrin No antibiotic use in the last 60 days. ALLERGIES Penicillins Rash, Vomiting Family History Reviewed Including Cardiac Diseases, Psychiatric Diseases, AND Substance Abuse Problem: Diabetes Relation: Father Age of Onset: (Not Specified) Problem: other (CHF) Relation: Father Age of Onset: (Not Specified) Social History Tobacco Use Smoking status: Never Smokeless tobacco: Never Vaping Use Vaping status: Never Used Alcohol use: Not Currently Drug use: Never Review of Systems Constitutional: Negative for chills and fever. HENT: Positive for congestion, ear pain, postnasal drip and rhinorrhea. Negative for sore throat. Eyes: Positive for photophobia, pain, discharge (Watery) and redness. Negative for itching and visual disturbance. Respiratory: Positive for cough and shortness of breath. Cardiovascular: Negative for chest pain. Musculoskeletal: Positive for myalgias. Allergic/Immunologic: Negative for immunocompromised state. Hematological: Negative for adenopathy. Objective Pulse 114 Temp 37.3 ?C (99.2 ?F) (Tympanic) Wt 75.6 kg (166 lb 10.7 oz) LMP 02/03/2023 (Approximate) SpO2 100% BMI 31.49 kg/m? Physical Exam Vitals and nursing note reviewed. HENT: Right Ear: Tympanic membrane and ear canal normal. Left Ear: Tympanic membrane and ear canal normal. Nose: Congestion and rhinorrhea present. Mouth/Throat: Pharynx: Uvula midline. Posterior oropharyngeal erythema present. No oropharyngeal exudate. Cardiovascular: Rate and Rhythm: Normal rate and regular rhythm. Heart sounds: Normal heart sounds. Pulmonary: Effort: Pulmonary effort is normal. No respiratory distress. Breath sounds: Normal breath sounds. No stridor. No wheezing, rhonchi or rales. Comments: Diminished in bases Chest: Chest wall: No tenderness. Lymphadenopathy: Cervical: No cervical adenopathy. Skin: General: Skin is warm and dry. Neurological: Mental Status: She is alert and oriented to person, place, and time. Assessment and Plan ASSESSMENT/PLAN: 1. Viral URI with cough - ICD9: 465.9, ICD10: J06.9 (primary diagnosis) - Discussed viral etiology and rationale for treatment. - Symptomatic treatment with prn analgesia - Supportive care with fluids and rest - COVID AND INFLUENZA A/B AND RSV PCR, ROUTINE - PREDNISONE 10 MG TABLET - [id number] 2 MG-30 MG-10 MG/5 ML ORAL SYRUP 2. Viral conjunctivitis - ICD9: 077.99, ICD10: B30.9 - see medication orders - course and contagiousness issues discussed, including hand washing. - Instructed to call if high fever, development of periorbital redness or swelling, eye pain, visual changes, concerns or if symptoms persist. - COVID AND INFLUENZA A/B AND RSV PCR, ROUTINE - ERYTHROMYCIN 5 MG/GRAM (0.5 %) EYE OINTMENT - OLOPATADINE 0.2 % EYE DROPS Yesy Bangura APRN.PERINATAL DIRECTOR Medical Decision Making: Problems: Moderate: New problem with uncertain prognosis Data: Unique test(s) ordered: 3+ Risk: Moderate: Drug management Medical Decision Making Level: 4 - Moderate CNOV Observed: 10/25/2024 9:40 AM Status: COMPLETED Source: [facility] Office Visit ([place]) SANTIAGO JACOBSEN ([id number]) 2000 F Date Time Provider Department 1/6/25 9:40 AM YESY BANGURA During your visit today, we recorded the following information about you: Temperature Pulse Blood pressure Weight 99.2 degrees 114/minute 136/75 75.6 kg Yesy Bangura APRN.PERINATAL DIRECTOR 10/25/2024 9:48 AM Signed UPPER RESPIRATORY INFECTIONS Most cases are caused by viruses and most cases are mild, temporary, and harmless. Symptoms can last 2 to 3 weeks and can include: nasal congestion, sore throat, coughing, muscles aches, headaches, nausea, diarrhea, fatigue and fever. Rhinovirus, RSV, Covid, Influenza A and B, Parainfluenza are just a few COMMON respiratory viruses that cause sinus symptoms and cough. Antibiotics do NOT treat viruses. Taking 1 round of antibiotics can destroy your gut normal yasmine (good bacteria) for up to 6 months. This can affect your weight, skin, digestion, mental health and immune system. 1. Drink plenty of fluids. 2. Get lots of rest. 3. Avoid dehydrants such as caffeine and alcohol. 4. Nasal saline is an effective decongestant and be used frequently throughout the day. 5. To loosen phlegm and help coughing, drink plenty of fluids and using a humidifier. 6. For sore throats, it is ok to use cough drops, throat sprays, or gargling warm salt water. 7. Always cover your mouth when you cough or sneeze, and wash your hands frequently. Avoid crowded areas like shopping centers, movies while you are sick so you don't turkey picker a different virus, or infect others. 8. Avoid exposure to cigarettes or fumes. 9. Avoid irritants such as potpourri, dust, perfumes, scented candles and scented sprays 10. Air conditioning is an effective allergen and irritant avoidance strategy in the spring, summer and fall. 11. Honey is an effective cough suppressant. Try one tsp 3-4 times per day. 12. Mucinex every 12 hours with a full 10-12 ounces of water 13. Afrin for 3-4 days for congestion and post nasal drainage is both safe and effective CARE ADVICE FOR COUGH: Drink warm fluids. Inhale warm mist. (Reason: both relax the airway and loosen up the phlegm) Suck on cough drops or hard candy to coat the irritated throat. OTC COUGH DROPS: Cough drops can help a lot, especially for mild coughs. They reduce coughing by soothing your irritated throat and removing that tickle sensation in the back of the throat. Cough drops also have the advantage of portability - you can carry them with you. HOME REMEDY - HARD CANDY: Hard candy works just as well as medicine-flavored OTC cough drops. People who have diabetes should use sugar-free candy. HOME REMEDY - HONEY: This old home remedy has been shown to help decrease coughing at night. The adult dosage is 2 teaspoons (10 ml) at bedtime. Honey should not be given to infants under one year of age. HUMIDIFIER: If the air is dry, use a humidifier in the bedroom. (Reason: dry air makes coughs worse) AVOID TOBACCO SMOKE: Smoking or being exposed to smoke makes coughs much worse. SORE THROAT For relief of sore throat: Sip warm chicken broth or apple juice Suck on hard candy or a throat lozenge (OTC) Gargle with warm salt water four times a day To make salt water, put 1/2 teaspoon of salt in 8 oz (240 ml) of warm water. Avoid cigarette smoke CALL BACK IF: Difficulty breathing occurs You develop any new or worsening symptoms You have any questions or concerns Yesy Bangura APRN.KRISTIE 10/25/2024 10:08 AM Signed This note was created using NoteWriter. Subjective Santiago Jacobsen is a 24 year old female. HPI by patient: Santiago is a 24 year old presenting to the office with the complaint of R eye pain. Runny nose, SOB (has asthma, covid induced) ear pain, cough, body aches Started approximately Friday her eye started hurting, everything else started after that. Denies any other concerns Covid Immunization Dates Overdue - Covid-19 Vaccine ( season) Overdue since 06/20/2024 04/05/2021 Imm Admin: COVID-19 original vaccine, age 12+ yr, monovalent (PFIZER-BIONTECH - PURPLE TOP) 03/15/2021 Imm Admin: COVID-19 original vaccine, age 12+ yr, monovalent (PFIZER-BIONTECH - PURPLE TOP) Sick contacts: yes her father has septic PNA Smoking history/second hand smoke: no OTC tylenol and excedrin No antibiotic use in the last 60 days. ALLERGIES Penicillins Rash, Vomiting Family History Reviewed Including Cardiac Diseases, Psychiatric Diseases, AND Substance Abuse Problem: Diabetes Relation: Father Age of Onset: (Not Specified) Problem: other (CHF) Relation: Father Age of Onset: (Not Specified) Social History Tobacco Use Smoking status: Never Smokeless tobacco: Never Vaping Use Vaping status: Never Used Alcohol use: Not Currently Drug use: Never Review of Systems Constitutional: Negative for chills and fever. HENT: Positive for congestion, ear pain, postnasal drip and rhinorrhea. Negative for sore throat. Eyes: Positive for photophobia, pain, discharge (Watery) and redness. Negative for itching and visual disturbance. Respiratory: Positive for cough and shortness of breath. Cardiovascular: Negative for chest pain. Musculoskeletal: Positive for myalgias. Allergic/Immunologic: Negative for immunocompromised state. Hematological: Negative for adenopathy. Objective Pulse 114 Temp 37.3 ?C (99.2 ?F) (Tympanic) Wt 75.6 kg (166 lb 10.7 oz) LMP 02/03/2023 (Approximate) SpO2 100% BMI 31.49 kg/m? Physical Exam Vitals and nursing note reviewed. HENT: Right Ear: Tympanic membrane and ear canal normal. Left Ear: Tympanic membrane and ear canal normal. Nose: Congestion and rhinorrhea present. Mouth/Throat: Pharynx: Uvula midline. Posterior oropharyngeal erythema present. No oropharyngeal exudate. Cardiovascular: Rate and Rhythm: Normal rate and regular rhythm. Heart sounds: Normal heart sounds. Pulmonary: Effort: Pulmonary effort is normal. No respiratory distress. Breath sounds: Normal breath sounds. No stridor. No wheezing, rhonchi or rales. Comments: Diminished in bases Chest: Chest wall: No tenderness. Lymphadenopathy: Cervical: No cervical adenopathy. Skin: General: Skin is warm and dry. Neurological: Mental Status: She is alert and oriented to person, place, and time. Assessment and Plan ASSESSMENT/PLAN: 1. Viral URI with cough - ICD9: 465.9, ICD10: J06.9 (primary diagnosis) - Discussed viral etiology and rationale for treatment. - Symptomatic treatment with prn analgesia - Supportive care with fluids and rest - COVID AND INFLUENZA A/B AND RSV PCR, ROUTINE - PREDNISONE 10 MG TABLET - [id number] 2 MG-30 MG-10 MG/5 ML ORAL SYRUP 2. Viral conjunctivitis - ICD9: 077.99, ICD10: B30.9 - see medication orders - course and contagiousness issues discussed, including hand washing. - Instructed to call if high fever, development of periorbital redness or swelling, eye pain, visual changes, concerns or if symptoms persist. - COVID AND INFLUENZA A/B AND RSV PCR, ROUTINE - ERYTHROMYCIN 5 MG/GRAM (0.5 %) EYE OINTMENT - OLOPATADINE 0.2 % EYE DROPS Yesy Bangura APRN.CNP Medical Decision Making: Problems: Moderate: New problem with uncertain prognosis Data: Unique test(s) ordered: 3+ Risk: Moderate: Drug management Medical Decision Making Level: 4 - Moderate Allergies As of Date: 10/25/2024 Noted Allergy Reaction PENICILLINS 05/21/2024 2 - Rash 11 - Vomiting Date Reviewed: 10/25/2024 Reviewed by: Alena Iverson MA - Fully Assessed Reason for Visit: Eye Problem [43] Cmt: Redness, swelling, watering, SOB, nausea l ear pain x 3 days Primary Visit Diagnosis:Viral URI with cough [J06.9] Other Visit Diagnosis:Viral conjunctivitis [B30.9] Order(s):COVID AND INFLUENZA A/B AND RSV PCR, ROUTINE [SQCVFLRS] Order #: [id number]. #:[id number] erythromycin (ROMYCIN) 5 mg/gram (0.5 %) ophthalmic ointmentUse 1 application in the right eye four times daily for 7 days.Disp: 3.5 gRfl: 0 Olopatadine (PATADAY ONCE DAILY RELIEF) 0.2 % dropUse 1 Drop in both eyes once daily.Disp: 5 mLRfl: 0 predniSONE (DELTASONE) 10 mg tabletTake 3 tablets by mouth once daily for 3 days, THEN 2 tablets once daily for 3 days, THEN 1 tablet once daily for 3 days.Disp: 18 tabletRfl: 0 Aicgnfwfnfhwvcd-Lgcabmtny-HZ (BROMFED DM) 2-30-10 mg/5 mL syrupTake 5 mL by mouth four times a day as needed.Disp: 118 mLRfl: 0 Prescriptions as of 10/25/2024 - erythromycin (ROMYCIN) 5 mg/gram (0.5 %) ophthalmic ointment Use 1 application in the right eye four times daily for 7 days. - Olopatadine (PATADAY ONCE DAILY RELIEF) 0.2 % drop Use 1 Drop in both eyes once daily. - predniSONE (DELTASONE) 10 mg tablet Take 3 tablets by mouth once daily for 3 days, THEN 2 tablets once daily for 3 days, THEN 1 tablet once daily for 3 days. - Wjgzlpqjmcwxfni-Yicmlzlan-YC (BROMFED DM) 2-30-10 mg/5 mL syrup Take 5 mL by mouth four times a day as needed. - kfrhna-hqsvfmmd-gorunhr (ZENPEP) 20,000-63,000- 84,000 unit delayed release capsule Take 1 capsule by mouth three times a day with meals. - ramipril (ALTACE) 1.25 mg capsule Take 1.25 mg by mouth once daily. - rosuvastatin (CRESTOR) 10 mg tablet Take 10 mg by mouth daily at bedtime. - insulin regular human, CONCENTRATED 500 UNIT/ML, 500 unit/mL soln Inject subcutaneously. Per sliding scale - budesonide-formoterol (SYMBICORT) 80-4.5 mcg/actuation inhaler Inhale 2 Puffs as instructed two times a day. - medroxyPROGESTERone (DEPO-PROVERA) 150 mg/mL injection Inject 150 mg intramuscularly every 12 weeks. - pantoprazole DR (PROTONIX) 40 mg tablet Take 1 tablet by mouth once daily. - lidocaine viscous (XYLOCAINE) 2 % solution Take 15 mL by mouth three times daily as needed for pain. - insulin NPH injection (HumuLIN N,NovoLIN N) Inject 14 Units subcutaneously daily with breakfast AND 34 Units daily at bedtime. - ondansetron (ZOFRAN) 4 mg tablet Take 1 tablet by mouth every 8 hours as needed for nausea/vomiting. Problem List As Of Date 10/25/2024 Noted Resolved Nausea and vomiting [R11.2] 04/24/2022 04/26/2022 Upper abdominal pain [R10.10] 04/25/2022 04/26/2022 Type 1 diabetes mellitus without complication (*04/25/2022 04/26/2022 Lactic acidosis [E87.20] 04/25/2022 04/26/2022 Left otitis media [H66.92] 04/25/2022 04/26/2022 Hypothyroidism [E03.9] 04/25/2022 Hypertension [I10] 04/25/2022 Malnutrition of mild degree (HCC) [E44.1] 04/25/2022 06/03/2022 DKA, type 1, not at goal (HCC) [E10.10] 06/01/2022 Type 1 diabetes mellitus (HCC) [E10.9] 06/02/2022 Obesity due to excess calories without serious *06/02/2022 Hypokalemia [E87.6] 06/02/2022 06/03/2022 Elevated lactic acid level [R79.89] 06/02/2022 06/03/2022 GERD (gastroesophageal reflux disease) [K21.9] 06/02/2022 COVID-19 virus infection [U07.1] 06/02/2022 Diabetic ketoacidosis adult (HCC) [E11.10] 06/14/2022 Other instructions from your clinician: UPPER RESPIRATORY INFECTIONS Most cases are caused by viruses and most cases are mild, temporary, and harmless. Symptoms can last 2 to 3 weeks and can include: nasal congestion, sore throat, coughing, muscles aches, headaches, nausea, diarrhea, fatigue and fever. Rhinovirus, RSV, Covid, Influenza A and B, Parainfluenza are just a few COMMON respiratory viruses that cause sinus symptoms and cough. Antibiotics do NOT treat viruses. Taking 1 round of antibiotics can destroy your gut normal yasmine (good bacteria) for up to 6 months. This can affect your weight, skin, digestion, mental health and immune system. 1. Drink plenty of fluids. 2. Get lots of rest. 3. Avoid dehydrants such as caffeine and alcohol. 4. Nasal saline is an effective decongestant and be used frequently throughout the day. 5. To loosen phlegm and help coughing, drink plenty of fluids and using a humidifier. 6. For sore throats, it is ok to use cough drops, throat sprays, or gargling warm salt water. 7. Always cover your mouth when you cough or sneeze, and wash your hands frequently. Avoid crowded areas like shopping centers, movies while you are sick so you don't turkey picker a different virus, or infect others. 8. Avoid exposure to cigarettes or fumes. 9. Avoid irritants such as potpourri, dust, perfumes, scented candles and scented sprays 10. Air conditioning is an effective allergen and irritant avoidance strategy in the spring, summer and fall. 11. Honey is an effective cough suppressant. Try one tsp 3-4 times per day. 12. Mucinex every 12 hours with a full 10-12 ounces of water 13. Afrin for 3-4 days for congestion and post nasal drainage is both safe and effective CARE ADVICE FOR COUGH: Drink warm fluids. Inhale warm mist. (Reason: both relax the airway and loosen up the phlegm) Suck on cough drops or hard candy to coat the irritated throat. OTC COUGH DROPS: Cough drops can help a lot, especially for mild coughs. They reduce coughing by soothing your irritated throat and removing that tickle sensation in the back of the throat. Cough drops also have the advantage of portability - you can carry them with you. HOME REMEDY - HARD CANDY: Hard candy works just as well as medicine-flavored OTC cough drops. People who have diabetes should use sugar-free candy. HOME REMEDY - HONEY: This old home remedy has been shown to help decrease coughing at night. The adult dosage is 2 teaspoons (10 ml) at bedtime. Honey should not be given to infants under one year of age. HUMIDIFIER: If the air is dry, use a humidifier in the bedroom. (Reason: dry air makes coughs worse) AVOID TOBACCO SMOKE: Smoking or being exposed to smoke makes coughs much worse. SORE THROAT For relief of sore throat: Sip warm chicken broth or apple juice Suck on hard candy or a throat lozenge (OTC) Gargle with warm salt water four times a day To make salt water, put 1/2 teaspoon of salt in 8 oz (240 ml) of warm water. Avoid cigarette smoke CALL BACK IF: Difficulty breathing occurs You develop any new or worsening symptoms You have any questions or concerns Prescriptions ordered this encounter Disp Refills Start End ERYTHROMYCIN 5 MG/GRAM (0.5 %) EYE O* 3.5 g 0 10/25/2024 11/01/2024 Route: RIGHT EYE Sig: Use 1 application in the right eye four times daily for 7 days. OLOPATADINE 0.2 % EYE DROPS 5 mL 0 10/25/2024 Route: BOTH EYES Sig: Use 1 Drop in both eyes once daily. PREDNISONE 10 MG TABLET 18 t* 0 10/25/2024 11/03/2024 Route: ORAL Sig: Take 3 tablets by mouth once daily for 3 days, THEN 2 tablets once daily for 3 days, THEN 1 tablet once daily for 3 days. [id number] 2* 118 * 0 10/25/2024 Route: ORAL Sig: Take 5 mL by mouth four times a day as needed. Level of Service: OFFICE/OUTPATIENT ESTABLISHED LOW MDM 20 MIN [31979] Letter Text Encounter Status:Closed by YESY BANGURA on 10/25/24 ALLERGIES DATE TYPE / CODE NAME / CODE REACTION SEVERITY SOURCE 05/21/2024 Drug Class/[id number]([facility] ED CT) PENICILLINS RASH [facility] ENCOUNTERS ADMIT/DISCHARGE ACCOUNT NUMBER ADMITTING ENCOUNTER CLASS LOC ATION SOURCE 03/25/2025/ 5 [id number] Emergency [facility] ng:AKEDRoom: CIABed: 05 [facility] 03/02/2025/ 5 [id number] Emergency Buildin [id number]: [id number]: TR06 [facility] 10/25/2024/ 5 [id number] Emergency Buildin [id number]: [id number]: 02 [facility] 10/25/2024/ 5 [id number] Amb[facility] HospitalBuild ing:YESSY [facility] PAYERS ENCOUNTER GUARANTOR PAYER SUBSCRIBER SOURCE 03/25/2025 Primary Insurance:[employer] H[employer] HIXPolicy Number: [id number] Date:5314-10-44Twsm Name:Pili VELOZ: [id number] [place] [id number] [facility] 03/02/2025 Primary Insurance:[employer]HE[employer] BLUE CROSSPolicy Number: [id number] Date:5106-11-76Tajp Name:Commercial SANTIAGO EAGLEB: [id number] [address] 10/25/2024 Primary Insurance:[employer] BLUE CROSSPolicy Number: [id number] Date:9507-87-73Jthw Name:Commercial SANTIAGO EAGLEB: [id number] [place] [id number] [facility] 10/25/2024 Primary Insurance:[employer] H[employer] HIXPolicy Number: [id number] Date:0556-16-60Qawo Name:Pili VELOZ: [id number] [address]
--- NOTE | 2025-09-12 07:21 | US_ITS ---
PROCEDURE: ELASTOGRAPHY PARENCHYMA/ORGAN 09/12/2025 REASON FOR EXAM: HEPATOMEGALY TECHNIQUE: Procedure Code: USELPAROG Modality: US Procedure: ELASTOGRAPHY PARENCHYMA/ORGAN COMPARISON: None FINDINGS: Hepatomegaly. KPA: 5.2 Velocity: 1.30. A Metavir score: F 0/F 1. US/Elastography Parenchyma/Organ IMPRESSION: Mild hepatic fibrosis. Fatty infiltration of the liver. Hepatomegaly. Reading Location: [place] [address]
== END | disposition home or self-care (01) ==
PROVIDERS: PCP Family Medicine; Referring Provider Internal Medicine Gastroenterology; Visit Provider Internal Medicine Gastroenterology
DX: R16.0 Hepatomegaly, not elsewhere classified (principal)
CPT/HCPCS: 76981